=== PATIENT | male | born 2000 | race Caucasian/White ===

== ENCOUNTER 2020-11-11 00:01 | Emergency (ER) | payer MEDICAID, SELFPAY ==
[2020-11-11 00:45] VITALS: BP 144/75; PULSE 85; RESP 17; TEMP 37.2; O2SAT 97; BMI 39.6
--- NOTE | 2020-11-11 01:01 | ED.ABDPAIN ---
HPI - Abdominal Pain General Chief Complaint: Abdominal Pain Stated Complaint: ABD PAIN RIGHT SIDED Time Seen by Provider: 11/11/20 00:30 Source: patient Mode of arrival: ambulatory Limitations: no limitations History of Present Illness HPI narrative: This is a 19-year-old male who states he has had some right lower quadrant pain that radiates into his back for 2 days and he describes as sharp and constant without associated fevers, chills, nausea, vomiting, urinary pain/burning/frequency, or diarrhea. In addition, patient states he has also had a sore throat with headache without ear pain, cough, shortness of breath, or chest pain/palpitations. Patient states his last bowel movement was today. Related Data Allergies Allergy/AdvReac Type Severity Reaction Status Date / Time haloperidol [From HALDOL] Allergy Unknown UNKNOWN Unverified 08/14/20 19:35 methylphenidate Allergy Unknown UNKNOWN Unverified 08/14/20 19:35 [From RITALIN] shrimp [SHRIMP] Allergy Unknown HIVES Unverified 08/14/20 19:35 Review of Systems Review of Systems Pertinent positives and negatives as stated in HPI and 10 point review systems is otherwise negative. Physical Exam Vital Signs: Vital Signs: Last Vital Signs Temp 98.9 F 11/11/20 00:45 Pulse 85 11/11/20 00:45 Resp 17 11/11/20 00:45 BP 144/75 H 11/11/20 00:45 Pulse Ox 97 11/11/20 00:45 Body Mass Index 39.6 VITAL SIGNS: Reviewed. GENERAL: Well developed, well nourished, in no acute distress. HEAD: Normocephalic/atraumatic, EYES: PERRLA, EOMI intact without pain, no nystagmus/pallor/icterus noted EARS: Ext canals without abnormality, TMs non-bulging and non-erythematous NOSE: Nares patent bilateral OROPHARYNX: no oral lesions noted, posterior pharynx erythematous with noted tonsillar enlargement but no exudates appreciated NECK: Supple, no adenopathy LUNGS: Normal breath sounds. No adventitious sounds or accessory muscle use. SpO2<97> CARDIOVASCULAR: Regular rate and rhythm without noted murmurs, no JVD or lower extremity edema. ABDOMEN: Soft, right lower quadrant pain without rebound, non-distended with bowel sounds. No rigidity. No guarding. No palpable masses or hernias noted MUSCULOSKELETAL: No tenderness, deformities, or effusions noted on gross inspection. EXTREMITIES: No cyanosis, clubbing or edema. SKIN: Inspection of the skin reveals no rashes, ulcerations, jaundice, pallor, or petechiae. NEUROLOGIC: Alert and oriented x 4. Strength and sensation to light touch were grossly intact x 4. Course Course Course Narrative: This is a 19-year-old male with history and clinical presentation consistent with possible strep versus mono, doubt appendicitis or colitis. On review of all investigations there are no findings to explain patient's pain and CT scan is negative for intra-abdominal findings other than trace free fluid of unclear etiology. All results and findings were discussed with the patient at bedside and recommendations were for follow-up outpatient with General surgery. MDM - Abdominal Pain Lab Data Result diagrams: 11/11/20 01:26 11/11/20 01: Labs: Lab Results 11/11/20 11/11/20 11/11/20 Range/Units 01:26 01:26 01:26 WBC 8.3 (4.8-10.8) X10*3/uL RBC 4.58 L (4.60-5.80) X10*6/uL Hgb 13.2 L (14.0-18.0) g/dl Hct 40.7 L (42-52) % MCV 88.9 (80-98) fL MCH 28.8 (27.0-33.0) pg MCHC 32.4 (31.0-36.0) g/dl RDW 14.5 (11.0-16.0) % Plt Count 203 (160-400) X10*3/uL MPV 10.4 (9.4-12.4) fL Immature Gran % (Auto) 0.2 (0.0-0.4) % Neut % (Auto) 45.0 (45-73) % Lymph % (Auto) 39.2 (20-40) % Hooker % (Auto) 9.6 (2-11) % Eos % (Auto) 5.6 H (0-4) % Baso % (Auto) 0.4 (0-2) % Lymph # (Auto) 3.2 (1.2-4.9) X10*3/uL Hooker # (Auto) 0.8 (0.1-1.2) X10*3/uL Eos # (Auto) 0.5 H (0.0-0.4) X10*3/uL Baso # (Auto) 0.0 (0.0-0.2) X10*3/uL Abs Immat Gran (auto) 0.02 (0.00-0.03) X10*3/uL Absolute Neuts (auto) 3.7 (2.0-8.3) X10*3/uL Absolute Nucleated RBC 0.000 (0.0-0.012) X10*3/uL Nucleated RBC % (auto) 0.0 (0.0-0.2) /100WBC Sodium 143 (135-145) mmol/L Potassium 4.2 (3.3-5.1) mmol/l Chloride 107 (96-108) mmol/L Carbon Dioxide 27 (22-29) mmol/L Anion Gap 13 (12-20) BUN 20 H (9-16) mg/dL Creatinine 1.03 (0.5-1.4) mg/dL Estim Creat Clear Calc 183.0 Estimated GFR > 60 Random Glucose 95 (60-115) mg/dL Calcium 8.7 (8.4-10.2) mg/dL Total Bilirubin 0.2 (0.0-1.0) mg/dL AST 26 (5-37) U/L ALT 32 (0-40) U/L Alkaline Phosphatase 94 (39-117) U/L Total Protein 7.0 (6.5-8.0) g/dL Albumin 3.7 (3.5-5.0) g/dL Urine Color Urine Appearance Urine pH (5.0-8.0) Ur Specific Latham (1.005-1.025) Urine Protein (NEG-TRACE) MG/DL Urine Glucose (UA) (NEG) MG/DL Urine Ketones (NEG) MG/DL Urine Blood (NEG) Urine Nitrite (NEG) Ur Leukocyte Esterase (NEG) Monoscreen Negative (Negative) 11/11/20 Range/Units 01:26 WBC (4.8-10.8) X10*3/uL RBC (4.60-5.80) X10*6/uL Hgb (14.0-18.0) g/dl Hct (42-52) % MCV (80-98) fL MCH (27.0-33.0) pg MCHC (31.0-36.0) g/dl RDW (11.0-16.0) % Plt Count (160-400) X10*3/uL MPV (9.4-12.4) fL Immature Gran % (Auto) (0.0-0.4) % Neut % (Auto) (45-73) % Lymph % (Auto) (20-40) % Hooker % (Auto) (2-11) % Eos % (Auto) (0-4) % Baso % (Auto) (0-2) % Lymph # (Auto) (1.2-4.9) X10*3/uL Hooker # (Auto) (0.1-1.2) X10*3/uL Eos # (Auto) (0.0-0.4) X10*3/uL Baso # (Auto) (0.0-0.2) X10*3/uL Abs Immat Gran (auto) (0.00-0.03) X10*3/uL Absolute Neuts (auto) (2.0-8.3) X10*3/uL Absolute Nucleated RBC (0.0-0.012) X10*3/uL Nucleated RBC % (auto) (0.0-0.2) /100WBC Sodium (135-145) mmol/L Potassium (3.3-5.1) mmol/l Chloride (96-108) mmol/L Carbon Dioxide (22-29) mmol/L Anion Gap (12-20) BUN (9-16) mg/dL Creatinine (0.5-1.4) mg/dL Estim Creat Clear Calc Estimated GFR Random Glucose (60-115) mg/dL Calcium (8.4-10.2) mg/dL Total Bilirubin (0.0-1.0) mg/dL AST (5-37) U/L ALT (0-40) U/L Alkaline Phosphatase (39-117) U/L Total Protein (6.5-8.0) g/dL Albumin (3.5-5.0) g/dL Urine Color YELLOW Urine Appearance CLEAR Urine pH 7.5 (5.0-8.0) Ur Specific Latham 1.020 (1.005-1.025) Urine Protein NEG (NEG-TRACE) MG/DL Urine Glucose (UA) NEG (NEG) MG/DL Urine Ketones NEG (NEG) MG/DL Urine Blood NEG (NEG) Urine Nitrite NEG (NEG) Ur Leukocyte Esterase NEG (NEG) Monoscreen (Negative) Discharge Plan Discharge Clinical Impression: Abdominal pain in male, Free fluid in pelvis Patient Disposition: Home, Self-Care Instructions: Abdominal Pain (ED) Additional Instructions: - Tylenol 1000 mg, orally, every 6 hours as needed for pain control. - Ibuprofen 400 mg, orally with milk or food, every 6 hours as needed for pain control. - Please follow-up with General surgery for further evaluation regarding CT findings a small amount of fluid in your abdomen of unclear origin, but appendix/gallbladder/kidneys are otherwise within normal limits. The patient and/or family acknowledge understanding of results (as applicable), diagnosis, treatment plan, need for follow up, and symptoms that should prompt a return to the emergency room. Referrals: Young Argueta MD [Physician] - 2 days (Please evaluate this 19-year-old male who presents with right lower quadrant discomfort, normal labs, CT shows trace free fluid of unclear etiology.) FORMERLY [facility], [facility] Past Medical History Source: nursing notes reviewed Medical History No known health problems Surgical History History of testicular surgery Social History Social History Smoking Status: Never smoker Use of substances other than those prescribed or required for medical reasons: No Advance Directives: No Advance Directives Information Provided: No
[2020-11-11 01:31] LABS: MANUAL DIFF FLAG NO
[2020-11-11 01:33] LABS: Basophils Percent Auto 0.4 % (0-2); Eosinophils Absolute Auto 0.5 X10*3/uL (0.0-0.4); Eosinophils Percent Auto 5.6 % (0-4); Hematocrit 40.7 % (42-52); Hemoglobin 13.2 g/dl (14.0-18.0); Imm Gran Abs Auto 0.02 X10*3/uL (0.00-0.03); Imm Gran Pct Auto 0.2 % (0.0-0.4); Lymphocytes Absolute Auto 3.2 X10*3/uL (1.2-4.9); Lymphocytes Percent Auto 39.2 % (20-40); Mean Corpuscular HGB Conc 32.4 g/dl (31.0-36.0); Mean Corpuscular Hemoglobin 28.8 pg (27.0-33.0); Mean Corpuscular Volume 88.9 fL (80-98); Mean Platelet Volume 10.4 fL (9.4-12.4); Monocytes Absolute Auto 0.8 X10*3/uL (0.1-1.2); Monocytes Percent Auto 9.6 % (2-11); Neutrophils Absolute Auto 3.7 X10*3/uL (2.0-8.3); Platelet Count 203 X10*3/uL (160-400); Red Blood Count 4.58 X10*6/uL (4.60-5.80); Red Cell Distribution Width 14.5 % (11.0-16.0); White Blood Count 8.3 X10*3/uL (4.8-10.8)
[2020-11-11 01:34] LABS: Glucose Urine UA NEG (NEG); Leukocyte Esterase Urine NEG (NEG); Nitrite Urine NEG (NEG); PH 7.5 (5.0-8.0); Urine Blood NEG (NEG); Urine Ketones NEG (NEG); Urine Protein NEG (NEG-TRACE)
--- NOTE | 2020-11-11 01:34 | PC.NURSE ---
LABS DRAWN AND SENT FOR ANALYSIS. AWAITING RESULTS.
[2020-11-11 01:36] LABS: Appearance Urine CLEAR; Color Urine YELLOW
[2020-11-11 01:58] LABS: Monotest Negative (Negative)
[2020-11-11 02:05] LABS: Alanine Aminotransferase 32 U/L (0-40); Albumin Level 3.7 g/dL (3.5-5.0); Alkaline Phosphatase 94 U/L (39-117); Anion Gap 13 (12-20); Aspartate Amino Transferase 26 U/L (5-37); Bilirubin Total 0.2 mg/dL (0.0-1.0); Blood Urea Nitrogen 20 mg/dL (9-16); Calcium 8.7 mg/dL (8.4-10.2); Carbon Dioxide 27 mmol/L (22-29); Chloride 107 mmol/L (96-108); Estimated Glomerular Filt Rate > 60; Glucose Random 95 mg/dL (60-115); Potassium 4.2 mmol/l (3.3-5.1); Sodium 143 mmol/L (135-145)
--- NOTE | 2020-11-11 02:26 | PC.NURSE ---
[id number] SENIOR CARE ASK FOR JOAQUIN OR DARIN
--- NOTE | 2020-11-11 02:56 | CT_ITS ---
EXAMINATION: CT ABDOMEN AND PELVIS WITH CONTRAST CLINICAL INFORMATION: Right lower quadrant pain. COMPARISON: None. TECHNIQUE: Contiguous axial thin section helical images of the abdomen and pelvis were performed following the administration of 85 mL of intravenous Omnipaque 350. The data set was reformatted in the coronal and sagittal planes and reviewed on an independent workstation. DLP: 1155 mGy-cm. FINDINGS: The visualized lung bases are clear. The visualized portions of the heart are unremarkable. The liver is of normal size and attenuation without focal lesions nor intrahepatic biliary ductal dilation. A normal gallbladder is identified. There is no wall thickening or discernible pericholecystic fluid. The spleen, pancreas, adrenal glands are unremarkable. Both kidneys are of normal size and attenuation without hydronephrosis or nephrolithiasis. Following the administration of IV contrast, prompt symmetric nephrograms are displayed. There is no abdominal free fluid. There is neither mesenteric nor retroperitoneal lymphadenopathy. Normal unopacified loops of small and large bowel are identified. A normal appendix is identified. There is a small amount of pelvic free fluid. The urinary bladder is unremarkable. There is neither pelvic nor inguinal lymphadenopathy. Bone windows: Neither sclerotic nor lytic bone lesions are identified. CT/CT abdomen pelvis w con IMPRESSION: Small amount of pelvic free fluid of uncertain etiology. Normal appendix. Automated exposure control (Care Dose) Adjustment of the mA and/or kv according to patient size (this includes techniques or standardized protocols for targeted exams where dose is matched to indication / reason for exam; i.e. extremities or head).
[2020-11-11] MEDS: iohexoL 350 MG/ML 100 ML INFUS..BTL 85 ML IV (03:44)
[2020-11-11] MEDS: Acetaminophen 325 MG TABLET 975 MG PO (04:49)
[2020-11-11] MEDS: Ketorolac Tromethamine 15 MG/ML VIAL IVPUSH (04:49)
== END 2020-11-11 05:01 | disposition home or self-care (01) ==
PROVIDERS: Emergency Provider Student in an Organized Health Care Education/Training Program
DX: R10.31 Right lower quadrant pain (principal); M54.5 Low back pain; Z20.828 Contact with and (suspected) exposure to other viral communicable diseases
CPT/HCPCS: 36415; 74177; 80053; 81003; 85025; 86308; 87071; 87880; 96374; 99284; J1885; Q9967

== ENCOUNTER 2020-11-11 21:29 | Emergency (ER) | payer MEDICAID, SELFPAY ==
[2020-11-11 21:37] VITALS: BP 121/68; BP 160/90; PULSE 82; PULSE 83; RESP 18; TEMP 37.1; O2SAT 95; O2SAT 97; BMI 41.5
--- NOTE | 2020-11-11 21:49 | XR_ITS ---
EXAMINATION: XR CHEST CLINICAL INFORMATION: Cough COMPARISON: 07/02/2020 TECHNIQUE: Frontal view of the chest was obtained. FINDINGS: Subtle coarse interstitial opacity. No dense focal consolidation. No pleural effusion or pneumothorax. Normal heart size. Regional skeleton intact. XR/XR chest 1V IMPRESSION: There is subtle coarse interstitial opacity compared to the prior study 07/02/2020. Subtle pneumonitis is possible.
--- NOTE | 2020-11-11 21:58 | ED_ITS ---
HPI - General Adult General Chief complaint: General Medical Stated complaint: BODY ACHES,ABD PAIN,LOSS OF TASTE Time Seen by Provider: 11/11/20 21:42 Source: patient Mode of arrival: ambulatory Limitations: no limitations History of Present Illness HPI narrative: This is a 19-year-old male who re-presented after being evaluated earlier this morning at approximately 1:00 a.m.. He has had no change in his symptoms but now reports that he has had loss of taste, and is experiencing body aches but does state that he has a follow-up appointment as instructed the time of discharge earlier today. He states he has been able to eat and drink and his had a bowel movement today. Related Data Allergies Allergy/AdvReac Type Severity Reaction Status Date / Time haloperidol [From HALDOL] Allergy Unknown UNKNOWN Verified 11/11/20 04:48 methylphenidate Allergy Unknown UNKNOWN Verified 11/11/20 04:48 [From RITALIN] shrimp [SHRIMP] Allergy Unknown HIVES Verified 11/11/20 04:48 Review of Systems Review of Systems: Pertinent positives and negatives as stated in HPI 10 point review of systems is otherwise negative. PMFSH Past Medical History Source: nursing notes reviewed Medical History Developmental disability Seizures XXYY syndrome Surgical History History of testicular surgery Social History Social History Alcohol intake: never Smoking Status: Never smoker Smoked in Last 30 Days: No Use of substances other than those prescribed or required for medical reasons: No Advance Directives: No Advance Directives Information Provided: No Physical Exam Vital Signs: Vital Signs: Last Vital Signs Temp 98.7 F 11/11/20 21:37 Pulse 83 11/11/20 21:37 Resp 18 11/11/20 21:37 BP 121/68 11/11/20 21:37 Pulse Ox 95 11/11/20 21:37 Body Mass Index 41.5 VITAL SIGNS: Reviewed. GENERAL: Well developed, well nourished, in no acute distress. HEAD: Normocephalic/atraumatic, EYES: PERRLA, EOMI intact without pain, no nystagmus/pallor/icterus noted EARS: Ext canals without abnormality, TMs non-bulging and non-erythematous NOSE: Nares patent bilateral OROPHARYNX: no oral lesions noted, posterior pharynx erythematous without noted tonsillar enlargement/erythema/exudates NECK: Supple, no adenopathy LUNGS: Normal breath sounds. No adventitious sounds or accessory muscle use. SpO2<95> CARDIOVASCULAR: Regular rate and rhythm without noted murmurs, no JVD or lower extremity edema. ABDOMEN: Soft, non-tender, non-distended with bowel sounds. No rigidity. No guarding. No palpable masses or hernias noted MUSCULOSKELETAL: No tenderness, deformities, or effusions noted on gross inspection. EXTREMITIES: No cyanosis, clubbing or edema. SKIN: Inspection of the skin reveals no rashes, ulcerations, jaundice, pallor, or petechiae. NEUROLOGIC: Alert and oriented x 4. Strength and sensation to light touch were grossly intact x 4. Course Course Course Narrative: This is a 19-year-old male with history and clinical presentation consistent with viral symptoms and no change in the character of his right lower quadrant discomfort that has not affected his appetite nor is he having fever or chills. Chest x-ray shows ?coarse interstitial opacity...... Compared to the prior study on 07/02/2020, subtle pneumonitis is possible?. COVID 19 testing here in the emergency department this evening is negative. All results and findings were discussed with the patient he will be discharged back to his alf to continue follow-up this next for his abdominal pain and CT findings. Medical Decision Making Lab Data Labs: Lab Results 11/11/20 Range/Units 22:10 COVID-19 (JULISSA) Negative (Negative) COVID-19 Clin Com See Note Discharge Plan Discharge Clinical Impression: Viral syndrome, Lab test negative for COVID-19 virus Patient Disposition: Home, Self-Care Instructions: Viral Syndrome (ED) Additional Instructions: 1. Tylenol 1000 mg, orally, every 6 hours as needed for abdominal pain, temperature greater than 100.4, body aches. Do not exceed 4000 mg within 24 hours. 2. Ibuprofen 400 mg, orally with milk or food, every 6 hours as needed for ab dominal pain, temperature greater than 100.4, body aches. 3. Continue to increase fluid hydration especially with water. 4. Resume all home medications as prescribed. 5. Follow-up as scheduled this coming and do not hesitate to return to the emergency department should you experience any worsening or new symptoms. The patient and/or family acknowledge understanding of results (as applicable), diagnosis, treatment plan, need for follow up, and symptoms that should prompt a return to the emergency room. Referrals: Physician,Unknown [Primary Care Provider] - 2 days (Re-evaluation)
--- NOTE | 2020-11-11 22:10 | PC.NURSE ---
contact: assistant sales director of the care home is daniel quintana [phone]- she would like to be notified if the patient is positive for covid so that she can make appropriate arrangements for him as well as others at the care home he lives in. when the patient is ready to discharge the care home number is [phone], daniel stated that if that number is not answered that it is ok for us to call her number so she can make arrangements to get him picked up.
--- NOTE | 2020-11-11 22:14 | PC.NURSE ---
COVID SWAB PERFORMED
[2020-11-11 22:34] LABS: COVID-19 Test Negative (Negative); IDNOW Serial# 9DD0AD1C
== END 2020-11-11 23:33 | disposition home or self-care (01) ==
PROVIDERS: Emergency Provider Student in an Organized Health Care Education/Training Program
DX: M79.10 Myalgia, unspecified site (principal); R79.89 Other specified abnormal findings of blood chemistry; Z20.828 Contact with and (suspected) exposure to other viral communicable diseases
CPT/HCPCS: 71045; 87635; 99283

== ENCOUNTER → 2020-11-13 14:24 | Outpatient (BNVA) | payer MEDICAID, SELFPAY | PROVIDERS: Visit Provider Surgery | DX: R10.9 Unspecified abdominal pain (principal); G89.29 Other chronic pain | CPT/HCPCS: 99202 ==

== ENCOUNTER 2020-11-14 21:08 | Emergency (ER) | payer MEDICAID, SELFPAY ==
[2020-11-14 21:18] VITALS: BP 126/92; PULSE 108; RESP 17; TEMP 36.7; O2SAT 97; BMI 39.6
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
[2020-11-14 21:43] VITALS: BP 126/92; PULSE 108; RESP 17; TEMP 36.7; O2SAT 97
== END 2020-11-14 22:51 | disposition home or self-care (01) ==
PROVIDERS: Emergency Provider Emergency Medicine
DX: F89 Unspecified disorder of psychological development (principal); Q98.0 Klinefelter syndrome karyotype 47, XXY; Z79.899 Other long term (current) drug therapy
CPT/HCPCS: 99283

== ENCOUNTER 2020-12-24 10:46 | Outpatient (REF) | payer MEDICAID, SELFPAY ==
--- NOTE | 2020-12-24 10:59 | US_ITS ---
EXAMINATION: US ABDOMEN COMPLETE CLINICAL INFORMATION: Abdominal pain. COMPARISON: CT abdomen 11/11/2020. XR KUB 07/25/2020 06/18/2020. TECHNIQUE: Real-time imaging of the abdominal viscera. FINDINGS: PANCREAS: Normal. ABDOMINAL AORTA: The proximal, mid, and distal segments are normal in caliber. INFERIOR VENA CAVA: Visualized portions are normal. LIVER: Liver echotexture is increased probably representing fatty infiltration. There is a hypoechoic area adjacent to the gallbladder probably presenting focal fatty sparing.. The liver is normal in size. The liver contour is normal. No focal hepatic lesion. There is no intrahepatic biliary duct dilatation seen. GALLBLADDER: Normal. The gallbladder is physiologically distended without evidence of stones, sludge, polyps, wall thickening or pericholecystic fluid. COMMON BILE DUCT: Normal in caliber measuring 0.4 cm in diameter. RIGHT KIDNEY: Normal. No hydronephrosis. No renal calculi or focal parenchymal lesions. The kidney measures 11.8 cm in maximum dimension. LEFT KIDNEY: Normal. No hydronephrosis. No renal calculi or focal parenchymal lesions. The kidney measures 13.0 cm in maximum dimension. SPLEEN: Normal. The spleen measures 11.8 cm in maximum dimension. FREE FLUID: None. US/US abdomen complete IMPRESSION: Echogenic liver probably representing fatty infiltration. Otherwise unremarkable exam.
== END 2020-12-24 10:47 | disposition home or self-care (01) ==
LOC: HO.HMGCX 10:46
PROVIDERS: Visit Provider Surgery
DX: G89.29 Other chronic pain (principal); R10.9 Unspecified abdominal pain
CPT/HCPCS: 76700

== ENCOUNTER 2020-12-29 13:20 | Emergency (ER) | payer MEDICAID, SELFPAY ==
--- NOTE | 2020-12-29 13:31 | XR_ITS ---
EXAMINATION: CR CHEST CLINICAL INFORMATION: Left-sided chest pain. COMPARISON: Chest x-ray dated 11/11/2020 and 07/02/2020. TECHNIQUE: AP upright portable view of the chest was obtained. FINDINGS: EKG leads overlie the chest. The cardiomediastinal silhouette is within normal limits in size. Lungs bilaterally are symmetrically hypoexpanded with mild bibasilar linear opacities, likely representing atelectasis. No focal dense consolidation, effusion or pneumothorax is seen. Bony structures are unremarkable. XR/XR chest 1V IMPRESSION: Low lung volumes with bibasilar subsegmental atelectasis.
[2020-12-29 13:33] VITALS: BP 140/100; BP 149/81; PULSE 92; PULSE 98; RESP 18; TEMP 36.7; O2SAT 95; O2SAT 98; BMI 41.5
--- NOTE | 2020-12-29 13:33 | ECG_ITS ---
Test Reason : SEIZURE Blood Pressure : / mmHG Vent. Rate : 089 BPM Atrial Rate : 089 BPM P-R Int : 148 ms QRS Dur : 080 ms QT Int : 352 ms P-R-T Axes : 030 002 014 degrees QTc Int : 428 ms Normal sinus rhythm Normal ECG When compared with ECG of 02-JUL-2020 17:42, No significant change was found Referred By: Buzz Escamilla Electronically Signed By:LUIS SORTO MD
[2020-12-29] MEDS: LORazepam 2 MG/ML VIAL IM (13:48)
--- NOTE | 2020-12-29 13:49 | PC.NURSE ---
Pt had seizure lasting approx 1.5-2 min, absent, nadeem PA at bedside for v/o of Ativan IM. Placed on 2L nasal cannula. Pt now slightly postictal but able to follow simple commands. Iv being established by second RN
[2020-12-29 13:57] LABS: MANUAL DIFF FLAG NO
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
[2020-12-29 14:02] LABS: Basophils Percent Auto 0.4 % (0-2); Eosinophils Absolute Auto 0.4 X10*3/uL (0.0-0.4); Eosinophils Percent Auto 5.4 % (0-4); Hematocrit 44.5 % (42-52); Hemoglobin 14.4 g/dl (14.0-18.0); Imm Gran Abs Auto 0.01 X10*3/uL (0.00-0.03); Imm Gran Pct Auto 0.1 % (0.0-0.4); Lymphocytes Absolute Auto 2.8 X10*3/uL (1.2-4.9); Mean Corpuscular HGB Conc 32.4 g/dl (31.0-36.0); Mean Corpuscular Hemoglobin 29.1 pg (27.0-33.0); Mean Corpuscular Volume 90.1 fL (80-98); Mean Platelet Volume 10.3 fL (9.4-12.4); Monocytes Absolute Auto 0.8 X10*3/uL (0.1-1.2); Monocytes Percent Auto 9.8 % (2-11); Neutrophils Absolute Auto 3.8 X10*3/uL (2.0-8.3); Neutrophils Percent Auto 48.3 % (45-73); Platelet Count 185 X10*3/uL (160-400); Red Blood Count 4.94 X10*6/uL (4.60-5.80); Red Cell Distribution Width 13.2 % (11.0-16.0); White Blood Count 7.8 X10*3/uL (4.8-10.8)
[2020-12-29 14:08] LABS: Prothrombin Time 12.2 SEC (10.8-13.0)
--- NOTE | 2020-12-29 14:10 | CT_ITS ---
EXAMINATION: CT HEAD WITHOUT CONTRAST CLINICAL INFORMATION: Seizure. COMPARISON: CT brain 06/19/2020 TECHNIQUE: Contiguous axial imaging was performed from the skull base to vertex without intravenous administration of contrast. This CT examination was performed using dose optimization techniques as appropriate, variously including the following: *Automated exposure control *Adjustment of mA and/or kV according to patient size (this includes techniques or standardized protocols for targeted exams where dose is matched to indication/reason for exam; i.e. extremities or head) *Use of iterative reconstruction technique DLP: 911 mGy-cm FINDINGS: There is no evidence of acute intracranial hemorrhage or territorial infarction. No abnormal mass effect or midline shift is seen. Katz to white matter differentiation is well preserved. No extra-axial fluid collections are identified. There is a hypodense lesion surrounding the mid and splenium of the corpus callosum consistent with callosal lipoma. No additional lesions seen. The ventricles are normal in size. There is no abnormal attenuation within the brain parenchyma. The osseous structures and soft tissues are normal. The mastoid air cells and visualized portions of the paranasal sinuses are well aerated. CT/CT head/brain wo con IMPRESSION: No acute intracranial process seen. 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 It is unchanged to previous study 06/19/2020.
[2020-12-29 14:11] LABS: D Dimer < 200 NG/ML; Partial Thromboplastin Time 34.4 SEC (24.1-38.0)
[2020-12-29] MEDS: 0.9 % Sodium Chloride 1,000 ML 999 ML IV (14:18)
[2020-12-29] MEDS: Acetaminophen 325 MG TABLET 650 MG PO (14:19)
[2020-12-29 14:24] LABS: Ethanol < 10 mg/dL
[2020-12-29 14:27] LABS: Alanine Aminotransferase 34 U/L (0-40); Albumin Level 4.1 g/dL (3.5-5.0); Alkaline Phosphatase 100 U/L (39-117); Anion Gap 13 (12-20); Aspartate Amino Transferase 21 U/L (5-37); Bilirubin Total 0.6 mg/dL (0.0-1.0); Blood Urea Nitrogen 14 mg/dL (9-16); Calcium 9.3 mg/dL (8.4-10.2); Carbon Dioxide 29 mmol/L (22-29); Chloride 105 mmol/L (96-108); Creatinine Clr Calc Pharmacy 208.3; Estimated Glomerular Filt Rate > 60; Glucose Random 86 mg/dL (60-115); Sodium 143 mmol/L (135-145); Total Protein 7.5 g/dL (6.5-8.0)
[2020-12-29 14:33] LABS: Troponin-I High Sensitivity < 3.5 ng/L (<3.5-35.0)
[2020-12-29 14:36] LABS: Valproate 49.2 mcg/mL (50.0-100.0)
--- NOTE | 2020-12-29 15:31 | PC.NURSE ---
pt to bathroom at this time. ambulatory independently
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
[2020-12-29 17:08] LABS: Appearance Urine CLEAR; Color Urine YELLOW; Glucose Urine UA NEG (NEG); Leukocyte Esterase Urine NEG (NEG); Nitrite Urine NEG (NEG); Specific Gravity - Urine >= 1.030 (1.005-1.025); Urine Blood NEG (NEG); Urine Ketones NEG (NEG); Urine Protein NEG (NEG-TRACE)
[2020-12-29 17:33] LABS: Amphetamine Screen Urine Not Detected (Not Detect); Barbiturates, Urine Not Detected (Not Detect); Benzodiazepines Screen Urine Not Detected (Not Detect); Cannabinoid Screen Urine Not Detected (Not Detect); Cocaine Screen Urine Not Detected (Not Detect); Opiate Screen Urine Not Detected (Not Detect); Phencyclidine Screen Urine Not Detected (Not Detect)
--- NOTE | 2020-12-29 18:08 | PC.NURSE ---
[facility] reports that they cannot see pt until the am care team made aware
[2020-12-29] MEDS: Divalproex Sodium 500 MG TABLET.DR 1000 MG PO (18:16)
--- NOTE | 2020-12-29 18:34 | PC.NURSE ---
care team speaking with correction
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
--- NOTE | 2020-12-29 20:12 | PC.NURSE ---
pt was told he was going to the pod and needed to changeover operator into [facility] scrubs. pt then with assist ambulated to the bathroom and started to had a seizure. pt placed in wheel chair, brought back to a stretcher and treated with ativan. side rales padded hob elevated. bathblanked placed over pt eyes while cleaning machine in room 12 is completed. pt is arrousable no incont. lasted 1 min witnessed.
[2020-12-29] MEDS: LORazepam 2 MG/ML VIAL IVPUSH (20:16)
[2020-12-29 20:31] VITALS: BP 130/72; PULSE 105; RESP 16; O2SAT 97
--- NOTE | 2020-12-29 20:34 | PC.NURSE ---
pt seizure has resolved and no further seizure activty noted, vitals taken hr elevated. skin warm and dry.
--- NOTE | 2020-12-29 22:36 | PC.NURSE ---
PT RESTING COMFORTABLY, NO SEIZURE ACTIVITY.
--- NOTE | 2020-12-29 23:52 | PC.NURSE ---
geovany from [facility] called and pt is waiting to be seen. pt is awake no seizure activity.
[2020-12-30] VITALS: BP 129/66; PULSE 92; RESP 17; TEMP 37.1; O2SAT 99
[2020-12-30 02:00] VITALS: RESP 20
[2020-12-30 05:11] VITALS: BP 139/70; PULSE 77; RESP 20; TEMP 36.2; O2SAT 95
--- NOTE | 2020-12-30 07:39 | PC.NURSE ---
Per [facility] clincian, pt was seen and cleared to return to current providers.
== END 2020-12-30 08:57 | disposition home or self-care (01) ==
PROVIDERS: Physician Assistant; Emergency Provider Emergency Medicine
DX: F41.9 Anxiety disorder, unspecified (principal); R07.89 Other chest pain; F44.5 Conversion disorder with seizures or convulsions
CPT/HCPCS: 36415; 70450; 71045; 80053; 80164; 80307; 80320; 81003; 84484; 85025; 85379; 85610; 85730; 93005; 96361; 96372; 96374; 99284; J2060

== ENCOUNTER → 2021-01-07 10:26 | Outpatient (BNVA) | payer MEDICAID, SELFPAY | PROVIDERS: PCP Nurse Practitioner Family; Visit Provider Surgery | DX: R10.9 Unspecified abdominal pain (principal); G89.29 Other chronic pain | CPT/HCPCS: 99212 ==

== ENCOUNTER 2021-01-07 23:08 | Emergency (ER) | payer MEDICAID, SELFPAY ==
--- NOTE | ~2021-01-07 | XR_ITS ---
EXAMINATION: LEFT HAND 3 VIEWS CLINICAL INFORMATION: Pain following injury. COMPARISON: 08/06/2020. TECHNIQUE: PA, lateral, oblique views of the left hand were obtained. FINDINGS: There are no fractures or dislocations. There is no significant soft tissue swelling. XR/XR hand LT min 3V IMPRESSION: Unremarkable left hand radiographs.
[2021-01-07 23:14] VITALS: BP 154/86; BP 156/86; PULSE 100; RESP 15; TEMP 36.6; O2SAT 98; BMI 41.5
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
[2021-01-07] MEDS: LORazepam 1 MG TABLET 2 MG PO (23:25)
[2021-01-07 23:54] LABS: MANUAL DIFF FLAG NO
[2021-01-07 23:57] LABS: Basophils Percent Auto 0.3 % (0-2); Eosinophils Absolute Auto 0.5 X10*3/uL (0.0-0.4); Eosinophils Percent Auto 5.4 % (0-4); Hematocrit 41.6 % (42-52); Hemoglobin 13.3 g/dl (14.0-18.0); Imm Gran Abs Auto 0.02 X10*3/uL (0.00-0.03); Imm Gran Pct Auto 0.2 % (0.0-0.4); Lymphocytes Absolute Auto 3.5 X10*3/uL (1.2-4.9); Mean Corpuscular Hemoglobin 28.9 pg (27.0-33.0); Mean Corpuscular Volume 90.4 fL (80-98); Mean Platelet Volume 10.3 fL (9.4-12.4); Monocytes Absolute Auto 0.8 X10*3/uL (0.1-1.2); Monocytes Percent Auto 9.6 % (2-11); Neutrophils Absolute Auto 3.9 X10*3/uL (2.0-8.3); Neutrophils Percent Auto 44.5 % (45-73); Platelet Count 203 X10*3/uL (160-400); Red Cell Distribution Width 13.6 % (11.0-16.0); White Blood Count 8.8 X10*3/uL (4.8-10.8)
[2021-01-08] VITALS (12 sets, daily range): BP systolic 96–128; BP diastolic 50–70; PULSE 66–100; RESP 16–20; TEMP 36.4–37; O2SAT 95–99
[2021-01-08 00:21] LABS: Ethanol < 10 mg/dL
[2021-01-08 00:24] LABS: Anion Gap 13 (12-20); Blood Urea Nitrogen 17 mg/dL (9-16); Calcium 9.2 mg/dL (8.4-10.2); Carbon Dioxide 25 mmol/L (22-29); Chloride 107 mmol/L (96-108); Creatinine Clr Calc Pharmacy 180.8; Estimated Glomerular Filt Rate > 60; Glucose Random 117 mg/dL (60-115); Potassium 3.9 mmol/L (3.3-5.1); Sodium 141 mmol/L (135-145)
[2021-01-08 00:31] LABS: Valproate 57.5 mcg/mL (50.0-100.0)
[2021-01-08] MEDS: polyethylene glycoL 3350 17 GM POWD.PACK PO (09:12)
[2021-01-08] MEDS: Docusate Sodium 100 MG CAPSULE PO ×2 (09:12→21:50)
[2021-01-08] MEDS: Divalproex Sodium 500 MG TABLET.DR PO ×2 (09:12→21:51)
[2021-01-08] MEDS: QUEtiapine Fumarate 50 MG TABLET PO ×2 (09:12→17:27)
[2021-01-08] MEDS: LORazepam 2 MG/ML VIAL IVPUSH (13:19)
--- NOTE | 2021-01-08 13:20 | PC.NURSE ---
Addendum entered by Mode Kidd 01/08/21 13:26: SZ PRECAUTIONS IN PLACE PER POLICY Original Note: WHILE RESTING S/F IN BED PT NOTED TO HAVE SUDDEN ONSET POSSIBLE SEIZURE, FULL BODY TONIC/CLONIC MOVEMENTS NOTED, PROVIDER TO BEDSIDE REQUESTED ATIVAN, IV ESTABLISHED, PT MEDICATED PER EMAR. PT PLACED ON TELE MONITOR NSR, VSS. SX LASTED <1 MIN.
--- NOTE | 2021-01-08 13:32 | PC.NURSE ---
PT NOW AWAKE AND ALERT, OFFERS NO COMPLAINTS, RESPONDING APPROPRIATELY TO QUESTIONS FROM THIS RN.
[2021-01-08] MEDS: LORazepam 1 MG TABLET 2 MG PO (18:01)
[2021-01-08 18:07] LABS: Amphetamine Screen Urine Not Detected (Not Detect); Barbiturates, Urine Not Detected (Not Detect); Benzodiazepines Screen Urine Not Detected (Not Detect); Cannabinoid Screen Urine Not Detected (Not Detect); Cocaine Screen Urine Not Detected (Not Detect); Opiate Screen Urine Not Detected (Not Detect); Phencyclidine Screen Urine Not Detected (Not Detect)
--- NOTE | 2021-01-08 18:27 | PC.NURSE ---
CALLED N TO SEE WHY THEY HAVE NOT COME TO SEE PATIENT YET. STATED THEY WILL NOT BE ABLE TO SEE PATIENT UNTIL AT LEAST 2200.
--- NOTE | 2021-01-08 19:45 | PC.NURSE ---
PT HAS HAD 1 EPISODE OF PSEUDO SEIZING FOR UNDER 1 MINUTE. PT MAINTAIN AIRWAY, NEEDING NO SUPPORTIVE CARE. PT NOW STATES I NEED SOMETHING STRONG OR I DONT KNOW WHAT IM GOING TO DO SPOKE W/PA WILL GIVE PO ATARAX
[2021-01-08] MEDS: hydrOXYzine HCL 25 MG TABLET PO (19:58)
--- NOTE | 2021-01-08 21:30 | PC.NURSE ---
PER CARE TEAM PT CLR FOR D/C TO SNF- WILL MEDICATE W/NOC MEDS PRIOR TO D/C
[2021-01-08] MEDS: QUEtiapine Fumarate 200 MG TABLET PO (21:50)
[2021-01-08] MEDS: QUEtiapine Fumarate 300 MG TABLET PO (21:51)
[2021-01-08] MEDS: Melatonin 3 MG TABLET PO (21:51)
[2021-01-08] MEDS: Divalproex Sodium 250 MG TABLET.DR PO (21:51)
== END 2021-01-08 22:00 | disposition home or self-care (01) ==
PROVIDERS: Emergency Provider Emergency Medicine
DX: F41.1 Generalized anxiety disorder (principal); F43.0 Acute stress reaction; M79.642 Pain in left hand; Z63.79 Other stressful life events affecting family and household; Z79.899 Other long term (current) drug therapy
CPT/HCPCS: 36415; 73130; 80048; 80164; 80307; 80320; 85025; 96372; 96374; 99285; J2060

== ENCOUNTER 2021-01-28 13:43 | Emergency (ER) | payer MEDICAID, SELFPAY ==
[2021-01-28 13:49] VITALS: BP 119/62; BP 124/86; PULSE 91; PULSE 94; TEMP 36.9; O2SAT 100; O2SAT 96; BMI 42.0
--- NOTE | 2021-01-28 13:52 | ED.PSYCH ---
HPI - Psych General Chief Complaint: Seizure Stated Complaint: seizures Time Seen by Provider: 01/28/21 13:51 Source: patient and EMS Mode of arrival: EMS Limitations: physical limitation (post versed) History of Present Illness HPI Narrative: 20 yo male with hx of developmental delay, seizures and nonepileptic seizures comes in with [facility] seizures [facility], EMS gave 5mg IV versed patient asleep on arrival MD complaint: other (anxiety, ) Onset (ago): day(s) (today ) Duration: constant History of same: Yes Relieving factors: none Exacerbating factors: none Context: other (hx of same in past) Associated psychiatric symptoms: none Associated symptoms: denies other symptoms Treatments prior to arrival: other (IV versed 5mg) Related Data Home Medications Medication Instructions Recorded Confirmed blood pressure monitor #1 ea 11/13/20 01/08/21 clindamycin phosphate 1 % topical 1 appl TOPICAL BID 11/13/20 01/08/21 gel divalproex 500 mg tablet,delayed 500 mg PO BID 11/13/20 01/08/21 release melatonin 3 mg capsule 3 mg PO BEDTIME 11/13/20 01/08/21 omega-3 fatty acids-fish oil 360 1 cap PO BID 11/13/20 01/08/21 mg-1,200 mg capsule divalproex 250 mg PO BEDTIME 01/08/21 01/08/21 guanfacine [Intuniv ER] 2 mg PO QPM 01/08/21 01/08/21 polyethylene glycol 3350 [Miralax] 17 g PO BID 01/08/21 01/08/21 quetiapine 200 mg PO BEDTIME 01/08/21 01/08/21 quetiapine 300 mg PO BEDTIME 01/08/21 01/08/21 quetiapine [Seroquel] 50 mg PO DAILY 01/08/21 01/08/21 quetiapine [Seroquel] 50 mg PO DAILY PRN 01/08/21 01/08/21 Previous Rx's Medication Instructions Recorded docusate sodium 100 mg capsule 100 mg PO BID #60 cap 11/13/20 Allergies Allergy/AdvReac Type Severity Reaction Status Date / Time haloperidol [From HALDOL] Allergy Unknown UNKNOWN Verified 01/07/21 10:38 methylphenidate Allergy Unknown UNKNOWN Verified 01/07/21 10:38 [From RITALIN] shrimp [SHRIMP] Allergy Unknown HIVES Verified 01/07/21 10:38 Review of Systems Review of Systems: ROS unable to be obtained due to altered mental status PMFSH Past Medical History Medical History Chronic abdominal pain Developmental disability Seizures XXYY syndrome Surgical History History of testicular surgery Family History Family History Other History of brain cancer Social History Social History Alcohol intake: unknown Smoking Status: Unknown if ever smoked Use of substances other than those prescribed or required for medical reasons: Unknown Advance Directives: No Advance Directives Information Provided: No Physical Exam Vital Signs: Vital Signs: Last Vital Signs Temp 98.2 F 01/28/21 15:46 Pulse 79 01/28/21 15:46 Resp 17 01/28/21 15:46 BP 108/67 01/28/21 15:46 Pulse Ox 99 01/28/21 15:46 Body Mass Index 42.0 Appearance: somnolent, no acute distress, opens eyes to his voice, follows commands. Eyes: Pupils equal, round and reactive to light. ENT: Pharynx normal. Neck: Normal inspection. Neck supple. CVS: Normal heart rate and rhythm. Pulses normal. Respiratory: No respiratory distress. Breath sounds normal. Abdomen: Soft and nontender. Skin: Skin warm and dry. Normal skin color. Normal skin turgor. Extremities: No lower extremity edema. No calf ttp Neuro: unable to participate, does move all extremeties when asked Course Course Course Narrative: awake alert oriented x 3 - stable for DC states he was just agitated, attempted to have another seizure in ED I confronted him and he looked at me and I told him he was going to receive no more medications now he wants to leave wants to leave, unable to reach his mom, RN to call jail will need to sign patient out until we hear from jail MDM - Psych MDM Narrative Medical decision making narrative: 20 yo male with hx of DD, seizures, non-epileptic seizures here with c/o seizure activity, hard to assess on arrival no signs of trauma, 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 - has been seen in the ED for same in past Lab Data Result diagrams: 01/28/21 14:04 01/28/21 14:03 Labs: Lab Results 01/28/21 01/28/21 Range/Units 14:03 14:04 WBC 7.4 (4.8-10.8) X10*3/uL RBC 4.73 (4.60-5.80) X10*6/uL Hgb 13.6 L (14.0-18.0) g/dl Hct 42.8 (42-52) % MCV 90.5 (80-98) fL MCH 28.8 (27.0-33.0) pg MCHC 31.8 (31.0-36.0) g/dl RDW 13.5 (11.0-16.0) % Plt Count 200 (160-400) X10*3/uL MPV 10.4 (9.4-12.4) fL Immature Gran % (Auto) 0.3 (0.0-0.4) % Neut % (Auto) 55.0 (45-73) % Lymph % (Auto) 29.8 (20-40) % [place] % (Auto) 8.4 (2-11) % Eos % (Auto) 6.1 H (0-4) % Baso % (Auto) 0.4 (0-2) % Lymph # (Auto) 2.2 (1.2-4.9) X10*3/uL [place] # (Auto) 0.6 (0.1-1.2) X10*3/uL Eos # (Auto) 0.5 H (0.0-0.4) X10*3/uL Baso # (Auto) 0.0 (0.0-0.2) X10*3/uL Abs Immat Gran (auto) 0.02 (0.00-0.03) X10*3/uL Absolute Neuts (auto) 4.1 (2.0-8.3) X10*3/uL Absolute Nucleated RBC 0.000 (0.0-0.012) X10*3/uL Nucleated RBC % (auto) 0.0 (0.0-0.2) /100WBC Hold Blue Top SEE NOTE Discharge Plan Discharge Clinical Impression: Nonepileptic episode Patient Disposition: Home, Self-Care Instructions: Nonepileptic Seizures (ED) Additional Instructions: return to ED for any worsening symptoms or concerns was given versed with EMS no medications given in the ED Prescriptions: No Action divalproex 250 mg tablet,delayed release (DR/EC) 250 mg PO BEDTIME RF: 0 polyethylene glycol 3350 [Miralax] 17 gram/dose Powder 17 g PO BID RF: 0 quetiapine [Seroquel] 50 mg Tablet 50 mg PO DAILY PRN (Reason: Anxiety) RF: 0 quetiapine [Seroquel] 50 mg Tablet 50 mg PO DAILY RF: 0 guanfacine [Intuniv ER] 2 mg Tablet Extended Release 24 Hr 2 mg PO QPM RF: 0 quetiapine 300 mg Tablet 300 mg PO BEDTIME RF: 0 quetiapine 200 mg Tablet 200 mg PO BEDTIME RF: 0 clindamycin phosphate 1 % gel 1 appl topical BID RF: 0 melatonin 3 mg capsule 3 mg PO BEDTIME RF: 0 (DME) blood pressure monitor [Blood Pressure Kit] Kit See Rx Instructions .ROUTE .MEDSUPPLY Qty: 1 RF: 0 omega-3 fatty acids-fish oil [Fish Oil] 360-1,200 mg capsule 1 cap PO BID RF: 0 divalproex 500 mg tablet,delayed release (DR/EC) 500 mg PO BID RF: 0 docusate sodium [Colace] 100 mg capsule 100 mg PO BID Qty: 60 RF: 2 Referrals: Physician,Unknown [Primary Care Provider] - 2 days
[2021-01-28 14:08] LABS: MANUAL DIFF FLAG NO
[2021-01-28 14:17] LABS: Basophils Percent Auto 0.4 % (0-2); Eosinophils Absolute Auto 0.5 X10*3/uL (0.0-0.4); Eosinophils Percent Auto 6.1 % (0-4); Hematocrit 42.8 % (42-52); Hemoglobin 13.6 g/dl (14.0-18.0); Imm Gran Abs Auto 0.02 X10*3/uL (0.00-0.03); Imm Gran Pct Auto 0.3 % (0.0-0.4); Lymphocytes Absolute Auto 2.2 X10*3/uL (1.2-4.9); Lymphocytes Percent Auto 29.8 % (20-40); Mean Corpuscular HGB Conc 31.8 g/dl (31.0-36.0); Mean Corpuscular Hemoglobin 28.8 pg (27.0-33.0); Mean Corpuscular Volume 90.5 fL (80-98); Mean Platelet Volume 10.4 fL (9.4-12.4); Monocytes Absolute Auto 0.6 X10*3/uL (0.1-1.2); Monocytes Percent Auto 8.4 % (2-11); Neutrophils Absolute Auto 4.1 X10*3/uL (2.0-8.3); Platelet Count 200 X10*3/uL (160-400); Red Blood Count 4.73 X10*6/uL (4.60-5.80); Red Cell Distribution Width 13.5 % (11.0-16.0); White Blood Count 7.4 X10*3/uL (4.8-10.8)
[2021-01-28 15:04] VITALS: BP 121/71; PULSE 87; RESP 20; O2SAT 98
[2021-01-28 15:06] VITALS: TEMP 36.8
[2021-01-28 15:46] VITALS: BP 108/67; PULSE 79; RESP 17; TEMP 36.8; O2SAT 99
--- NOTE | 2021-01-28 16:05 | PC.NURSE ---
Pt requesting to leave I'm just anxious and want to go , pt easily redirected but refusing lab work. Called Jesse Khalil, site head, from [facility] for AMA/ discharge, deferred to Daylin, supervisor gas meter repair, unable to reach at this time. will continue to attempt
[2021-01-28] MEDS: Acetaminophen 325 MG TABLET 650 MG PO (16:14)
[2021-01-28 16:49] LABS: Alanine Aminotransferase 42 U/L (0-40); Albumin Level 3.9 g/dL (3.5-5.0); Alkaline Phosphatase 107 U/L (39-117); Anion Gap 12 (12-20); Aspartate Amino Transferase 26 U/L (5-37); Bilirubin Direct 0.2 mg/dL (0.0-0.5); Bilirubin Total 0.6 mg/dL (0.0-1.0); Blood Urea Nitrogen 13 mg/dL (9-16); Carbon Dioxide 27 mmol/L (22-29); Chloride 104 mmol/L (96-108); Creatinine Clr Calc Pharmacy 212.2; Estimated Glomerular Filt Rate > 60; Glucose Random 74 mg/dL (60-115); Sodium 139 mmol/L (135-145); Total Protein 7.1 g/dL (6.5-8.0)
[2021-01-28 16:53] LABS: Valproate 63.3 mcg/mL (50.0-100.0)
== END 2021-01-28 18:03 | disposition home or self-care (01) ==
PROVIDERS: Emergency Provider Emergency Medicine
DX: R56.9 Unspecified convulsions (principal); F89 Unspecified disorder of psychological development; Q98 Other sex chromosome abnormalities, male phenotype, not elsewhere classified; Z79.899 Other long term (current) drug therapy
CPT/HCPCS: 36415; 80048; 80076; 80164; 85025; 99283; 99284

== ENCOUNTER 2021-02-14 11:59 | Emergency (ER) | payer MEDICAID, SELFPAY ==
[2021-02-14 12:13] VITALS: BP 122/81; PULSE 94; RESP 18; TEMP 37.2; O2SAT 95; BMI 41.5
[2021-02-14 12:55] LABS: MANUAL DIFF FLAG NO
[2021-02-14 12:57] LABS: Basophils Percent Auto 0.5 % (0-2); Eosinophils Absolute Auto 0.5 X10*3/uL (0.0-0.4); Eosinophils Percent Auto 5.8 % (0-4); Hematocrit 43.8 % (42-52); Hemoglobin 13.6 g/dl (14.0-18.0); Imm Gran Abs Auto 0.02 X10*3/uL (0.00-0.03); Imm Gran Pct Auto 0.2 % (0.0-0.4); Lymphocytes Absolute Auto 2.2 X10*3/uL (1.2-4.9); Lymphocytes Percent Auto 24.9 % (20-40); Mean Corpuscular HGB Conc 31.1 g/dl (31.0-36.0); Mean Corpuscular Hemoglobin 28.8 pg (27.0-33.0); Mean Corpuscular Volume 92.6 fL (80-98); Monocytes Absolute Auto 0.9 X10*3/uL (0.1-1.2); Neutrophils Absolute Auto 5.1 X10*3/uL (2.0-8.3); Neutrophils Percent Auto 58.6 % (45-73); Platelet Count 207 X10*3/uL (160-400); Red Blood Count 4.73 X10*6/uL (4.60-5.80); Red Cell Distribution Width 13.9 % (11.0-16.0); White Blood Count 8.7 X10*3/uL (4.8-10.8)
[2021-02-14 13:07] LABS: INTERNATIONAL NORM RATIO 1.1 (0.9-1.1); Prothrombin Time 13.2 SEC (10.8-13.0)
[2021-02-14 13:27] LABS: Ethanol < 10 mg/dL
[2021-02-14 13:28] LABS: Valproate 76.3 mcg/mL (50.0-100.0)
[2021-02-14 13:30] LABS: Alanine Aminotransferase 34 U/L (0-40); Albumin Level 3.9 g/dL (3.5-5.0); Alkaline Phosphatase 97 U/L (39-117); Anion Gap 12 (12-20); Aspartate Amino Transferase 27 U/L (5-37); Bilirubin Direct 0.2 mg/dL (0.0-0.5); Bilirubin Total 0.3 mg/dL (0.0-1.0); Blood Urea Nitrogen 20 mg/dL (9-16); Calcium 9.4 mg/dL (8.4-10.2); Carbon Dioxide 30 mmol/L (22-29); Chloride 107 mmol/L (96-108); Creatinine Clr Calc Pharmacy 203.9; Estimated Glomerular Filt Rate > 60; Glucose Random 96 mg/dL (60-115); Magnesium 2.1 mg/dL (1.6-2.6); Potassium 4.6 mmol/L (3.3-5.1); Sodium 144 mmol/L (135-145); Total Protein 7.1 g/dL (6.5-8.0)
--- NOTE | 2021-02-14 13:35 | ED.SEIZURE ---
HPI - Seizure General Chief Complaint: Seizure Stated Complaint: seizures Time Seen by Provider: 02/14/21 12:25 Source: patient, EMS and other ([facility] staff member) Mode of arrival: ambulatory Limitations: no limitations History of Present Illness HPI Narrative: 20-year-old male with a past medical history of developmental delay, seizures, nonepileptic seizures and pseudoseizures currently on Depakote 500 mg daily and 250 mg at night currently taking as prescribed per patient and [facility] presenting to the ED after possible seizure witnessed by his [facility] staff member prior to arrival where he reports the patient sitting watching TV after eating breakfast and his eyes rolled back and he was not responding to the [facility] staff member. Reports shortly after he came back to baseline although [facility] staff member was concerned therefore called EMS to bring him to the emergency department for further evaluation treatment. Patient reports that he feels as he cannot concentrate otherwise denies any other symptoms which include fevers, chills, dizziness, lightheadedness, headaches, changes in vision, runny nose, nasal congestion, ear pain, sore throat, chest pain or shortness of breath, cough, any abdominal pain, nausea/vomiting/diarrhea, constipation, dysuria, diarrhea, penile discharge or any other symptoms complaints or concerns at this time. Denies recent travel or sick contacts. Reports he feels safe denies any SI/HI/auditory visual hallucinations thoughts of self-injury. MD complaint: possible seizure Onset (ago): minute(s) (Prior to arrival) Description of Episode: other (Rolling of eyes back) -: second(s) Witnessed: Yes - by Other (Group staff member) Trauma: No Seizure History: Yes Place: [facility] Possible Precipitating Event: none Associated symptoms: denies other symptoms Treatments prior to arrival: none Related Data Home Medications Medication Instructions Recorded Confirmed blood pressure monitor #1 ea 11/13/20 01/08/21 clindamycin phosphate 1 % topical 1 appl TOPICAL BID 11/13/20 01/08/21 gel divalproex 500 mg tablet,delayed 500 mg PO BID 11/13/20 01/08/21 release melatonin 3 mg capsule 3 mg PO BEDTIME 11/13/20 01/08/21 omega-3 fatty acids-fish oil 360 1 cap PO BID 11/13/20 01/08/21 mg-1,200 mg capsule divalproex 250 mg PO BEDTIME 01/08/21 01/08/21 guanfacine [Intuniv ER] 2 mg PO QPM 01/08/21 01/08/21 polyethylene glycol 3350 [Miralax] 17 g PO BID 01/08/21 01/08/21 quetiapine 200 mg PO BEDTIME 01/08/21 01/08/21 quetiapine 300 mg PO BEDTIME 01/08/21 01/08/21 quetiapine [Seroquel] 50 mg PO DAILY 01/08/21 01/08/21 quetiapine [Seroquel] 50 mg PO DAILY PRN 01/08/21 01/08/21 Previous Rx's Medication Instructions Recorded docusate sodium 100 mg capsule 100 mg PO BID #60 cap 11/13/20 Allergies Allergy/AdvReac Type Severity Reaction Status Date / Time haloperidol [From HALDOL] Allergy Unknown UNKNOWN Verified 01/07/21 10:38 methylphenidate Allergy Unknown UNKNOWN Verified 01/07/21 10:38 [From RITALIN] shrimp [SHRIMP] Allergy Unknown HIVES Verified 01/07/21 10:38 Review of Systems Review of Systems: Constitutional : No Fever, No Chills, No Night Sweats, No Fatigue, No Malaise ENT/Mouth : No Ear Pain, No Nasal Congestion, No Sinus Pain, No sore throat, No Rhinorrhea Eyes: No Eye Pain, No Swelling, No Redness, No Foreign Body, No Discharge, No Vision Changes Cardiovascular : No Chest Pain, No SOB, No Dyspnea on Exertion, No Orthopnea, No Palpitations Respiratory : No Cough, No Sputum, No Wheezing, No Dyspnea Gastrointestinal : No Nausea, No Vomiting, No Diarrhea, No Constipation, No abdominal Pain, No Hematochezia, No Melena Genitourinary : No Dysuria, No Urinary Frequency, No Urinary Incontinence, No Urgency, No Flank Pain Musculoskeletal : No joint pain, No Myalgias Skin : No lacerations Neuro :+ possible seizure, No Focal weakness, No Numbness, No Paresthesias, No Loss of Consciousness, No Dizziness, No Headache Yes all other systems are reviewed and are negative [facility] Past Medical History Attestation statement: The following information was validated with the patient. Medical History Chronic abdominal pain Developmental disability Seizures XXYY syndrome Surgical History History of testicular surgery Family History Family History Other History of brain cancer Social History Social History Alcohol intake: never Smoking Status: Never smoker Use of substances other than those prescribed or required for medical reasons: No Advance Directives: No Advance Directives Information Provided: No Physical Exam Vital Signs: Vital Signs: Last Vital Signs Temp 98 F 02/14/21 13:59 Pulse 75 02/14/21 13:59 Resp 18 02/14/21 13:59 BP 121/70 02/14/21 13:59 Pulse Ox 98 02/14/21 13:59 Body Mass Index 41.5 Vital signs have been reviewed as normal and appeared to be correct. Blood pressure normal. Heart rate normal. Respiration rate normal. Temperature normal. Oxygen saturation normal. Appearance: Alert. Oriented X3. No acute distress. Head: Normal external exam. Normocephalic. Atraumatic. Able to rotate head bilaterally. Eyes: PERRLA. EOMI. No nystagmus noted. Conjunctiva and sclera normal. Eyelids normal. Corneal reflex normal. ENT: EAC normal. TM's Normal. Hearing normal. Pharynx normal. Uvula midline. tongue midline. Moist mucous membranes. No trismus noted. No drooling noted. No muffled voice noted. No nystagmus noted. Neck: Normal inspection. Neck supple. FROM. No adenopathy. Trachea midline. Thyroid Normal. No meningeal signs. No neck mass noted. CVS: Normal heart rate and rhythm. Heart sound normal. No murmurs noted. Pulses normal throughout. Respiratory: No respiratory distress. Painless inspiration. Breath sounds normal. No wheezes/rales/rhonchi noted. Chest nontender. No accessory muscle usage noted or decreased air movement noted. Abdomen: Soft and nontender. Bowel sounds normal in all 4 quadrants. No distention noted. No organomegaly noted. No visible injury noted. Back: No CVA tenderness. Full range of motion noted. Skin: Skin warm and dry. Normal skin color. Normal skin turgor. No rashes/lesions/lacerations noted. Extremities: No lower extremity edema. Extremities exhibit normal range of motion. Extremities nontender. Able to shrug shoulders bilaterally and keep up against resistance. Neuro: Oriented X 3. No motor deficit. No sensory deficit. Reflexes normal. Moving all extremities. No focal motor deficits. Cranial nerves II-XI intact bilaterally. Facial strength normal. Normal cognition. Speech normal. Gait normal. Strength 5/5 throughout. No pronator drift. No tremor noted. No fasciculations noted. No rigidity noted. Muscle tone normal throughout. No asterixis noted. Bfoyvk-ih-[id number] test normal. Heel to hicks test normal. Tandem gait normal. Does not sway with eyes open. Romberg test negative. Rapid alternating movement upper extremity normal. Rapid alternating movement lower extremity normal. Hand drop from overhead Misses face. Course Course Course Narrative: 1:40pm - 20-year-old male with a past medical history of developmental delay, seizures, nonepileptic seizures and pseudoseizures currently on Depakote 500 mg daily and 250 mg at night currently taking as prescribed per patient and [facility] presenting to the ED after possible seizure witnessed by his [facility] staff member prior to arrival where he reports the patient sitting watching TV after eating breakfast and his eyes rolled back and he was not responding to the [facility] staff member. - on exam patient is alert and oriented x3. Not in any acute distress. Back at baseline not postictal. No signs of trauma. Denies any complaints or concerns. No focal neuro deficits noted. Patient neuro intact. Vital signs are stable within normal limits. Lungs CTA. CV RRR. Abdomen is soft and nontender. - labs obtained including Depakote level in all within normal limits and Depakote level at therapeutic level. - I am unsure if the patient actually had a seizure due to his eyes only rolled back and he was not responding to the staff member and then he completely went back to baseline this could be a pseudo-seizure especially if the patient's labs are all within normal limits including Depakote level. Will DC home with instructions to continue taking his medications as previously prescribed and to return if any new or worsening symptoms. Patient and [facility] staff member at bedside they understand and agree with this plan. MDM - Seizure Medical Records Attestation: I reviewed the patient's medical records. Lab Data Attestation: I reviewed the patient's lab results. Result diagrams: 02/14/21 12:49 02/14/21 12:49 Labs: Lab Results 02/14/21 02/14/21 02/14/21 Range/Units 12:49 12:49 12:49 WBC 8.7 (4.8-10.8) X10*3/uL RBC 4.73 (4.60-5.80) X10*6/uL Hgb 13.6 L (14.0-18.0) g/dl Hct 43.8 (42-52) % MCV 92.6 (80-98) fL MCH 28.8 (27.0-33.0) pg MCHC 31.1 (31.0-36.0) g/dl RDW 13.9 (11.0-16.0) % Plt Count 207 (160-400) X10*3/uL MPV 10.0 (9.4-12.4) fL Immature Gran % (Auto) 0.2 (0.0-0.4) % Neut % (Auto) 58.6 (45-73) % Lymph % (Auto) 24.9 (20-40) % [place] % (Auto) 10.0 (2-11) % Eos % (Auto) 5.8 H (0-4) % Baso % (Auto) 0.5 (0-2) % Lymph # (Auto) 2.2 (1.2-4.9) X10*3/uL [place] # (Auto) 0.9 (0.1-1.2) X10*3/uL Eos # (Auto) 0.5 H (0.0-0.4) X10*3/uL Baso # (Auto) 0.0 (0.0-0.2) X10*3/uL Abs Immat Gran (auto) 0.02 (0.00-0.03) X10*3/uL Absolute Neuts (auto) 5.1 (2.0-8.3) X10*3/uL Absolute Nucleated RBC 0.000 (0.0-0.012) X10*3/uL Nucleated RBC % (auto) 0.0 (0.0-0.2) /100WBC PT 13.2 H (10.8-13.0) SEC INR 1.1 (0.9-1.1) Sodium 144 (135-145) mmol/L Potassium 4.6 (3.3-5.1) mmol/L Chloride 107 (96-108) mmol/L Carbon Dioxide 30 H (22-29) mmol/L Anion Gap 12 (12-20) BUN 20 H D (9-16) mg/dL Creatinine 0.94 (0.5-1.4) mg/dL Estim Creat Clear Calc 203.9 Estimated GFR > 60 Random Glucose 96 (60-115) mg/dL Calcium 9.4 (8.4-10.2) mg/dL Magnesium 2.1 (1.6-2.6) mg/dL Total Bilirubin 0.3 (0.0-1.0) mg/dL Direct Bilirubin 0.2 (0.0-0.5) mg/dL AST 27 (5-37) U/L ALT 34 (0-40) U/L Alkaline Phosphatase 97 (39-117) U/L Total Protein 7.1 (6.5-8.0) g/dL Albumin 3.9 (3.5-5.0) g/dL Valproic Acid (50.0-100.0) mcg/mL Ethyl Alcohol mg/dL Coronavirus (PCR) (Negative) Influenza Type A (PCR) (Negative) Influenza Type B (PCR) (Negative) RSV RNA Qual (PCR) (Negative) 02/14/21 02/14/21 02/14/21 Range/Units 12:49 12:49 12:49 WBC (4.8-10.8) X10*3/uL RBC (4.60-5.80) X10*6/uL Hgb (14.0-18.0) g/dl Hct (42-52) % MCV (80-98) fL MCH (27.0-33.0) pg MCHC (31.0-36.0) g/dl RDW (11.0-16.0) % Plt Count (160-400) X10*3/uL MPV (9.4-12.4) fL Immature Gran % (Auto) (0.0-0.4) % Neut % (Auto) (45-73) % Lymph % (Auto) (20-40) % [place] % (Auto) (2-11) % Eos % (Auto) (0-4) % Baso % (Auto) (0-2) % Lymph # (Auto) (1.2-4.9) X10*3/uL [place] # (Auto) (0.1-1.2) X10*3/uL Eos # (Auto) (0.0-0.4) X10*3/uL Baso # (Auto) (0.0-0.2) X10*3/uL Abs Immat Gran (auto) (0.00-0.03) X10*3/uL Absolute Neuts (auto) (2.0-8.3) X10*3/uL Absolute Nucleated RBC (0.0-0.012) X10*3/uL Nucleated RBC % (auto) (0.0-0.2) /100WBC PT (10.8-13.0) SEC INR (0.9-1.1) Sodium (135-145) mmol/L Potassium (3.3-5.1) mmol/L Chloride (96-108) mmol/L Carbon Dioxide (22-29) mmol/L Anion Gap (12-20) BUN (9-16) mg/dL Creatinine (0.5-1.4) mg/dL Estim Creat Clear Calc Estimated GFR Random Glucose (60-115) mg/dL Calcium (8.4-10.2) mg/dL Magnesium (1.6-2.6) mg/dL Total Bilirubin (0.0-1.0) mg/dL Direct Bilirubin (0.0-0.5) mg/dL AST (5-37) U/L ALT (0-40) U/L Alkaline Phosphatase (39-117) U/L Total Protein (6.5-8.0) g/dL Albumin (3.5-5.0) g/dL Valproic Acid 76.3 (50.0-100.0) mcg/mL Ethyl Alcohol < 10 mg/dL Coronavirus (PCR) NEGATIVE (Negative) Influenza Type A (PCR) NEGATIVE (Negative) Influenza Type B (PCR) NEGATIVE (Negative) RSV RNA Qual (PCR) NEGATIVE (Negative) Discharge Plan Discharge Clinical Impression: Seizure Patient Disposition: Home, Self-Care Instructions: Recurrent Seizures in Adults (ED) Additional Instructions: Continue taking your previously prescribed medications as previously prescribed. Follow up with her neurologist. Prescriptions: No Action divalproex 250 mg tablet,delayed release (DR/EC) 250 mg PO BEDTIME RF: 0 polyethylene glycol 3350 [Miralax] 17 gram/dose Powder 17 g PO BID RF: 0 quetiapine [Seroquel] 50 mg Tablet 50 mg PO DAILY PRN (Reason: Anxiety) RF: 0 quetiapine [Seroquel] 50 mg Tablet 50 mg PO DAILY RF: 0 guanfacine [Intuniv ER] 2 mg Tablet Extended Release 24 Hr 2 mg PO QPM RF: 0 quetiapine 300 mg Tablet 300 mg PO BEDTIME RF: 0 quetiapine 200 mg Tablet 200 mg PO BEDTIME RF: 0 clindamycin phosphate 1 % gel 1 appl topical BID RF: 0 melatonin 3 mg capsule 3 mg PO BEDTIME RF: 0 (DME) blood pressure monitor [Blood Pressure Kit] Kit See Rx Instructions .ROUTE .MEDSUPPLY Qty: 1 RF: 0 omega-3 fatty acids-fish oil [Fish Oil] 360-1,200 mg capsule 1 cap PO BID RF: 0 divalproex 500 mg tablet,delayed release (DR/EC) 500 mg PO BID RF: 0 docusate sodium [Colace] 100 mg capsule 100 mg PO BID Qty: 60 RF: 2 Referrals: Mar Burt MD [Primary Care Provider] - 2 days Jen Vann MD [Physician] - 2 days Interventions: ED Discharge Assessment Last Done: 02/14/21 14:13 Discharge Date/Time: 02/14/21 14:14 Print Language: Arabic
[2021-02-14 13:58] LABS: Influenza A PCR NEGATIVE (Negative); Influenza B PCR NEGATIVE (Negative); Resp Syncy Virus RNA Qual PCR NEGATIVE (Negative); SARS COV2 PCR INHOUSE NEGATIVE (Negative)
[2021-02-14 13:59] VITALS: BP 121/70; PULSE 75; RESP 18; TEMP 36.6; O2SAT 98
== END 2021-02-14 14:14 | disposition home or self-care (01) ==
PROVIDERS: Physician Assistant Medical; Emergency Provider Emergency Medicine; PCP Family Medicine
DX: R56.9 Unspecified convulsions (principal); Z20.822 Contact with and (suspected) exposure to COVID-19; Q98.0 Klinefelter syndrome karyotype 47, XXY; Z79.899 Other long term (current) drug therapy
CPT/HCPCS: 0241U; 36415; 80048; 80076; 80164; 80320; 83735; 85025; 85610; 99283; 99284

== ENCOUNTER 2021-02-17 17:39 | Emergency (ER) | payer MEDICAID, SELFPAY ==
[2021-02-17 17:46] VITALS: BP 150/90; PULSE 120; O2SAT 98
[2021-02-17 18:16] VITALS: BP 150/90; PULSE 120; RESP 20; TEMP 36.8; O2SAT 98; BMI 39.1
[2021-02-17 18:23] VITALS: RESP 20
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
--- NOTE | 2021-02-17 18:29 | PC.NURSE ---
USP: Jarvis Khalil (rn field case manager) [phone].
--- NOTE | 2021-02-17 18:48 | PC.NURSE ---
[facility]
--- NOTE | 2021-02-17 18:53 | PC.NURSE ---
Provider in, pt currently on the telephone. Pt states he is familiar w/ pod and w/ crisis process.
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
[2021-02-17] MEDS: LORazepam 1 MG TABLET 2 MG PO (20:11)
[2021-02-17 20:38] LABS: COVID-19 Test Negative (Negative)
[2021-02-17 21:02] LABS: Valproate 53.4 mcg/mL (50.0-100.0)
[2021-02-17 21:44] LABS: Amphetamine Screen Urine Not Detected (Not Detect); Barbiturates, Urine Not Detected (Not Detect); Benzodiazepines Screen Urine Not Detected (Not Detect); Cannabinoid Screen Urine POSITIVE (Not Detect); Cocaine Screen Urine Not Detected (Not Detect); Opiate Screen Urine Not Detected (Not Detect); Phencyclidine Screen Urine Not Detected (Not Detect)
[2021-02-18] VITALS (7 sets, daily range): BP systolic 108; BP diastolic 60; PULSE 98; RESP 16–24; TEMP 36.8; O2SAT 97
[2021-02-18] MEDS: LORazepam 1 MG TABLET 2 MG PO ×2 (07:20→12:15)
[2021-02-18] MEDS: OLANZapine 10 MG VIAL IM (07:20)
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
--- NOTE | 2021-02-18 10:21 | PC.NURSE ---
Pt sleeping at this time. RR even, unlabored. Will continue to monitor.
--- NOTE | 2021-02-18 11:39 | PC.NURSE ---
Pt continues to sleep. Will administer morning meds upon his arousal.
[2021-02-18] MEDS: Docusate Sodium 100 MG CAPSULE PO (11:50)
[2021-02-18] MEDS: polyethylene glycoL 3350 17 GM POWD.PACK PO (11:50)
[2021-02-18] MEDS: Divalproex Sodium 500 MG TABLET.DR PO (11:50)
[2021-02-18] MEDS: QUEtiapine Fumarate 50 MG TABLET PO (11:50)
--- NOTE | 2021-02-18 11:54 | PC.NURSE ---
Pt awake. Medicated with morning meds. Pt stating he wants to go home. He is reminded of plan for bed search, and receives message well. Currently sitting alone in common area. Will continue to monitor.
--- NOTE | 2021-02-18 12:25 | PC.NURSE ---
Pt in TV room, threatening to punch through glass panel again. Pt was agreeable to taking Ativan for his agitation. Upon medicating pt, he was re-directable away from glass panel. Currently sitting calmly in TV room. Will continue to monitor.
--- NOTE | 2021-02-18 13:51 | PC.NURSE ---
Pt sleeping at this time. RR even, unlabored.
--- NOTE | 2021-02-18 15:06 | PC.NURSE ---
Report received. Pt asleep at current. No signs of distress. RR even and unlabored. Continues to be a section 12 bed search.
--- NOTE | 2021-02-18 17:01 | PC.NURSE ---
Pt asleep at current. No signs of distress. RR even and unlabored.
--- NOTE | 2021-02-18 19:12 | PC.NURSE ---
Report received. PT is using the phone in the common area. Calm and cooperative. PT is inpatient bed search.
[2021-02-18] MEDS: diphenhydrAMINE HCL 50 MG/ML VIAL IM (20:08)
[2021-02-18] MEDS: Haloperidol Lactate 5 MG/ML VIAL IM (20:08)
[2021-02-18] MEDS: LORazepam 2 MG/ML VIAL IM (20:08)
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
[2021-02-19] MEDS: QUEtiapine Fumarate 200 MG TABLET PO ×2 (01:39→19:58)
[2021-02-19] MEDS: Divalproex Sodium 250 MG TABLET.DR PO ×2 (01:39→19:58)
[2021-02-19] MEDS: Divalproex Sodium 500 MG TABLET.DR PO ×3 (01:39→19:58)
[2021-02-19] MEDS: Melatonin 3 MG TABLET PO ×2 (01:39→19:58)
[2021-02-19] MEDS: QUEtiapine Fumarate 300 MG TABLET PO ×2 (01:40→19:59)
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
[2021-02-19] MEDS: polyethylene glycoL 3350 17 GM POWD.PACK PO ×3 (01:42→19:58)
[2021-02-19] MEDS: Docusate Sodium 100 MG CAPSULE PO ×3 (01:42→19:58)
--- NOTE | 2021-02-19 01:48 | PC.NURSE ---
PT was given IM meds just prior to scheduled night time meds and then fell asleep. PT woke up and received night time now so that he would not miss a scheduled dose.
[2021-02-19 06:00] VITALS: RESP 18
--- NOTE | 2021-02-19 07:02 | PC.NURSE ---
Report received. PT currently sleeping, respirations even and unlabored, in no apparent distress. PT is inpatient bedsearch.
--- NOTE | 2021-02-19 08:10 | PC.NURSE ---
[facility] requested pt notes, information faxed as requested.
--- NOTE | 2021-02-19 08:49 | MHC.CARE ---
per morning meeting and request CARE team contacted N in effort to clarify pt is a DDS bedsearch. Spoke with Ml at the bedsearch team and she was not aware if the DDS bedsearch is exhausted and t/w then left a message for Operations General Agent to further clarify.
[2021-02-19 09:13] VITALS: RESP 18
--- NOTE | 2021-02-19 09:31 | MHC.CARE ---
[facility] clarified that pt is a DDS (and adult) bedsearch.
[2021-02-19] MEDS: QUEtiapine Fumarate 50 MG TABLET PO (09:40)
--- NOTE | 2021-02-19 10:15 | MHC.CARE ---
0900hrs - Spoke with Jesse Khalil, Flame Burner at pt's long-term. I asked Mr. Khalil to provide some insight as to pt's behavior and what we can do to help support him. I also asked if a long-term staff member could be provided to stay with the pt. Mr. Khalil stated that he would call me back, it sounded like I woke him, with the information that I requested. CARE Team phone number provided.
[2021-02-19 14:38] VITALS: BP 135/90; PULSE 139; RESP 20; TEMP 36.6; O2SAT 97
[2021-02-19] MEDS: LORazepam 1 MG TABLET 2 MG PO ×2 (14:47→19:58)
--- NOTE | 2021-02-19 15:07 | MHC.CARE ---
1500hrs - Followed up with a phone call to Jesse Khalil from the skilled nursing. Message left requesting a return call.
[2021-02-19 18:00] VITALS: RESP 20
--- NOTE | 2021-02-19 18:30 | PC.NURSE ---
PT came out of his room, eye lids fluttering, pt told to sit on couch, pt sat and slumped to the side. Pt updated on plan of care and shook his head yes when asked if he understood. PT following commands.
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
[2021-02-19] MEDS: diphenhydrAMINE HCL 25 MG TABLET 50 MG PO (19:57)
[2021-02-19 20:00] VITALS: RESP 16
--- NOTE | 2021-02-19 20:13 | PC.NURSE ---
Pt medicated as ordered, states I'm stressed out and requesting to leave ED BH Pod. Pt is redirectable and cooperative with staff, and remains in behavioral control at this time, but is stressed/anxious. Per Kiera (care team), she has attempted to contact multiple facilities and has been communicating with the patient's prison, but remains bedsearch section 12 at this time. Requesting to lay on the floor instead of the bed, stating I just feel more comfortable that way . Okayed by this RN, rural health consultant (Coty Wood), & provider aware. Given weighted blanket for comfort. Able to make needs known, and encouraged to express feelings & ask questions. Will continue to monitor.
--- NOTE | 2021-02-19 20:24 | MHC.CARE ---
CARE Team speaks with pt regarding plan for team meeting tomorrow. Pt agrees to utilize staff support in order to maintain emotional regulation and physical safety. Pt voices that he would like to be discharged back to program. CARE Team encourages pt to continue to be calm and cooperative awaiting this meeting.
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
--- NOTE | 2021-02-19 23:14 | PC.NURSE ---
Patient in bed appears sleeping, no distress/observed, per report patient had decent day, will continue to monitor.
--- NOTE | 2021-02-20 06:55 | PC.NURSE ---
Report received. PT currently sleeping, respirations even and unlabored, in no apparent distress. PT is inpatient bedsearch.
[2021-02-20] MEDS: polyethylene glycoL 3350 17 GM POWD.PACK PO ×2 (08:32→20:02)
[2021-02-20] MEDS: QUEtiapine Fumarate 50 MG TABLET PO (08:32)
[2021-02-20] MEDS: Divalproex Sodium 500 MG TABLET.DR PO ×2 (08:32→20:02)
[2021-02-20] MEDS: Docusate Sodium 100 MG CAPSULE PO ×2 (08:32→20:02)
[2021-02-20 08:35] VITALS: BP 107/53; PULSE 102; RESP 18; TEMP 36.4; O2SAT 95
--- NOTE | 2021-02-20 10:27 | PC.NURSE ---
BHN at bedside for MSU
--- NOTE | 2021-02-20 11:15 | PC.NURSE ---
Per N pt will remain an inpatient bedsearch
[2021-02-20] MEDS: diphenhydrAMINE HCL 25 MG TABLET 50 MG PO ×2 (11:44→19:22)
[2021-02-20] MEDS: LORazepam 1 MG TABLET 2 MG PO ×2 (11:44→19:22)
--- NOTE | 2021-02-20 11:47 | PC.NURSE ---
Pt asking when he can leave. Plan of care explained. PT continues to repeat he wants to leave. Pt appears restless, moving from his room to common and back frequently. PT offered and accepted PRN medication, continues to ask when he can leave.
[2021-02-20 16:58] VITALS: BP 133/87; PULSE 122; RESP 17; TEMP 36.7; O2SAT 97
--- NOTE | 2021-02-20 17:06 | PC.NURSE ---
senior living staff in to sit with PT
[2021-02-20] MEDS: HaloperidoL 5 MG TABLET PO (19:22)
[2021-02-20] MEDS: QUEtiapine Fumarate 200 MG TABLET PO (20:01)
[2021-02-20] MEDS: Divalproex Sodium 250 MG TABLET.DR PO (20:02)
[2021-02-20] MEDS: QUEtiapine Fumarate 300 MG TABLET PO (20:02)
[2021-02-20] MEDS: Melatonin 3 MG TABLET PO (20:02)
--- NOTE | 2021-02-20 20:12 | PC.NURSE ---
Patient was very upset, angry, and frustrated over being here in behavioral pod, per report detention still does't wants him back, provider notified/ PRN Haldol 5 mg po, Benadryl 50 mg PO, and Ativan 2 mg po, administered as ordered. to avoid behavioral escalation, care team called for help, care team spoke with patient, patient is aware of his plan, HS PO medication administered/patient compliant, currently resting in his bed, will continue to monitor.
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
[2021-02-21 02:48] VITALS: BP 131/86; PULSE 108; RESP 18; TEMP 37.1; O2SAT 96
--- NOTE | 2021-02-21 07:24 | PC.NURSE ---
Report received from LUC Johnson. Pt resting, resp unlabored. Staff from [facility] present.
--- NOTE | 2021-02-21 07:30 | PC.NURSE ---
CARE team called to clarify discharge plans. Care team will review and update.
[2021-02-21 08:22] VITALS: BP 145/90; PULSE 134; RESP 18; O2SAT 96
[2021-02-21] MEDS: polyethylene glycoL 3350 17 GM POWD.PACK PO (08:30)
[2021-02-21] MEDS: QUEtiapine Fumarate 50 MG TABLET PO (08:30)
[2021-02-21] MEDS: Docusate Sodium 100 MG CAPSULE PO (08:30)
[2021-02-21] MEDS: Divalproex Sodium 500 MG TABLET.DR PO (08:30)
[2021-02-21 08:39] VITALS: PULSE 120
--- NOTE | 2021-02-21 08:58 | ECG_ITS ---
Test Reason : TACK Blood Pressure : / mmHG Vent. Rate : 105 BPM Atrial Rate : 105 BPM P-R Int : 144 ms QRS Dur : 076 ms QT Int : 328 ms P-R-T Axes : 052 026 027 degrees QTc Int : 433 ms Sinus tachycardia Otherwise normal ECG When compared with ECG of 29-DEC-2020 13:48, No significant change was found Referred By: Aneta Yang Electronically Signed By:MARY KEYES
--- NOTE | 2021-02-21 09:33 | PC.NURSE ---
BHN in to evaluate pt. Staff from [facility] given medications the [facility] had brought in as requested by staff present on unit.. Given after consulting w/ care team. Per staff, [facility] will bring to pt.
--- NOTE | 2021-02-21 09:35 | PC.NURSE ---
Late entry: EKG completed as ordered. Pt denies any concerns or complaints.
[2021-02-21 10:00] VITALS: RESP 20
--- NOTE | 2021-02-21 10:49 | PC.NURSE ---
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 Pt's mother: [phone]; [phone]. Terri, from pt's [facility], called stating they would like to meet w/ mother to give her pt's medications: Terri [phone].
--- NOTE | 2021-02-21 11:29 | PC.NURSE ---
Report received. Pt resting in room at current, no complaints at this time, calm and cooperative.
--- NOTE | 2021-02-21 11:30 | PC.NURSE ---
Confirmed with Ruth at [facility] that she will meet pt's mother in the ED lobby to deliver pt's medications when pt is d/c'd at 1230.
== END 2021-02-21 12:41 | disposition home or self-care (01) ==
PROVIDERS: Physician Assistant; Emergency Provider Emergency Medicine; PCP Family Medicine
DX: R45.6 Violent behavior (principal); R00.0 Tachycardia, unspecified; F43.0 Acute stress reaction; S60.512A Abrasion of left hand, initial encounter; S60.511A Abrasion of right hand, initial encounter; X58.XXXA Exposure to other specified factors, initial encounter; Y93.9 Activity, unspecified; Y92.239 Unspecified place in hospital as the place of occurrence of the external cause; Y99.9 Unspecified external cause status; I10 Essential (primary) hypertension; F17.200 Nicotine dependence, unspecified, uncomplicated; Z20.822 Contact with and (suspected) exposure to COVID-19; Z79.899 Other long term (current) drug therapy; Z71.6 Tobacco abuse counseling; F12.90 Cannabis use, unspecified, uncomplicated
CPT/HCPCS: 36415; 80164; 80307; 87635; 93005; 96372; 99285; J1200; J2060; Q0163

== ENCOUNTER 2021-05-05 22:25 | Emergency (ER) | payer MEDICAID, SELFPAY ==
[2021-05-05 22:42] VITALS: BP 109/60; PULSE 82; RESP 16; TEMP 36.6; O2SAT 63; BMI 41.5
--- NOTE | 2021-05-05 22:51 | ED_ITS ---
HPI - Psych General Chief Complaint: Psychiatric Symptoms Stated Complaint: SECTION 12 Time Seen by Provider: 05/05/21 22:32 Source: patient and EMS Mode of arrival: EMS History of Present Illness HPI Narrative: This is a 20-year-old male known well to the emergency room who was sent in from the halfway on a Section 12 stated that patient had endorsed SI numerous times and patient identifies a feels triggered by his recent court case. Patient states he has been fighting with the halfway residence and feels like he ?always wants to fight?. Otherwise, denies any fever, chills, shortness of breath, chest pain. Related Data Home Medications Medication Instructions Recorded Confirmed blood pressure monitor #1 ea 11/13/20 05/05/21 clindamycin phosphate 1 % topical 1 appl TOPICAL BID 11/13/20 05/05/21 gel melatonin 3 mg capsule 3 mg PO BEDTIME 11/13/20 05/05/21 omega-3 fatty acids-fish oil 360 1 cap PO BID 11/13/20 05/05/21 mg-1,200 mg capsule guanfacine [Intuniv ER] 4 mg PO QAM 01/08/21 05/05/21 polyethylene glycol 3350 [Miralax] 17 g PO BID 01/08/21 05/05/21 quetiapine 200 mg PO BEDTIME 01/08/21 05/05/21 quetiapine 300 mg PO BEDTIME 01/08/21 05/05/21 quetiapine [Seroquel] 50 mg PO DAILY 01/08/21 05/05/21 quetiapine [Seroquel] 50 mg PO DAILY PRN 01/08/21 05/05/21 divalproex 500 mg tablet,delayed 1,000 mg PO BID tab 04/08/21 05/05/21 release Previous Rx's Medication Instructions Recorded docusate sodium 100 mg capsule 100 mg PO BID #60 cap 02/26/21 Allergies Allergy/AdvReac Type Severity Reaction Status Date / Time methylphenidate Allergy Unknown UNKNOWN Verified 04/08/21 13:39 [From RITALIN] shrimp [SHRIMP] Allergy Unknown HIVES Verified 04/08/21 13:39 haloperidol [From Haldol] Allergy Unknown Verified 04/08/21 13:40 Review of Systems Review of Systems: Pertinent positives and negatives as stated in HPI 10 point review of systems is otherwise negative. PMFSH Past Medical History Source: nursing notes reviewed Medical History Chronic abdominal pain Developmental disability Seizures XXYY syndrome Surgical History History of testicular surgery Family History Family History Other History of brain cancer Social History Social History Alcohol intake: never Use of substances other than those prescribed or required for medical reasons: Yes Substance Use Type: Marijuana Substance Use Frequency: Weekly Last Used Substance: Unknown Any prior treatment program specific to substance use: No Advance Directives: No Advance Directives Information Provided: No Physical Exam Vital Signs: Vital Signs: Last Vital Signs Temp 97.8 F 05/05/21 22:42 Pulse 82 05/05/21 22:42 Resp 16 05/06/21 00:00 BP 109/60 05/05/21 22:42 Pulse Ox 63 L 05/05/21 22:42 Body Mass Index 41.5 VITAL SIGNS: Reviewed. GENERAL: Well developed, well nourished, in no acute distress. HEAD: Normocephalic/atraumatic EYES: PERRLA, EOMI OROPHARYNX: no oral lesions noted, posterior pharynx clear NECK: Supple, no adenopathy LUNGS: Normal breath sounds. No adventitious sounds or accessory muscle use. CARDIOVASCULAR: Regular rate and rhythm without noted murmurs ABDOMEN: Soft, non-tender, non-distended with bowel sounds. NEUROLOGIC: Alert and oriented x 4. PSYCH: Aggressive, flat affect Course Course Course Narrative: This is a 20-year-old male with history and clinical presentation consistent with depression, aggression and prior suicidal ideation now presents with SI. Patient is otherwise medically cleared for evaluation by N. Reevaluation(s) Reevaluation #1: Patient placed in physician observation because the patient needed more time for BHN evaluation. At the time observation was started the patient's vital signs were stable, patient is alert and oriented but slightly agitated, neuro: Nonfocal, CV RRR, lungs clear Time: 23:30 Discharge Plan Discharge Prescriptions: No Action docusate sodium [Colace] 100 mg capsule 100 mg PO BID Qty: 60 RF: 2 polyethylene glycol 3350 [Miralax] 17 gram/dose Powder 17 g PO BID RF: 0 quetiapine [Seroquel] 50 mg Tablet 50 mg PO DAILY PRN (Reason: Anxiety) RF: 0 quetiapine [Seroquel] 50 mg Tablet 50 mg PO DAILY RF: 0 guanfacine [Intuniv ER] 2 mg Tablet Extended Release 24 Hr 4 mg PO QAM RF: 0 quetiapine 300 mg Tablet 300 mg PO BEDTIME RF: 0 quetiapine 200 mg Tablet 200 mg PO BEDTIME RF: 0 clindamycin phosphate 1 % gel 1 appl topical BID RF: 0 melatonin 3 mg capsule 3 mg PO BEDTIME RF: 0 (DME) blood pressure monitor [Blood Pressure Kit] Kit See Rx Instructions .ROUTE .MEDSUPPLY Qty: 1 RF: 0 omega-3 fatty acids-fish oil [Fish Oil] 360-1,200 mg capsule 1 cap PO BID RF: 0
--- NOTE | 2021-05-05 22:56 | PC.NURSE ---
pt initially very hesitant to get changed over, clenching fits, refusing to give up ipad, endorsing si, wants to kill himself tonight . wants to fight , intially md and RN able to talk patient down, pt states wants to be discharged tomorrow. education provided that fighting staff will not allow for plan of care toinclude discharge.
[2021-05-06] VITALS: RESP 16
--- NOTE | 2021-05-06 00:52 | PC.NURSE ---
PATIENT RESTING IN ROOM, NO DISTRESS NOTED. SKIN IS P,D,W. FAXED PAPERWORK TO [facility] FOR EVALUATION.
[2021-05-06 02:00] VITALS: RESP 16
[2021-05-06 04:00] VITALS: RESP 16
--- NOTE | 2021-05-06 07:14 | PC.NURSE ---
pt resting in bed at this time. resp even and unlabored. waiting to be seen by bhn.
[2021-05-06 10:00] VITALS: PULSE 16
--- NOTE | 2021-05-06 10:11 | PC.NURSE ---
pt was seen in community by maeve, plan for eval at some time today. if bhn does not re eval. care team will dc pt back to assisted.
[2021-05-06 12:00] VITALS: RESP 18
--- NOTE | 2021-05-06 12:21 | PC.NURSE ---
pt making staff aware that he is upset and really wants to break the glass. pt aware to give regina from the care team until 4pm to know if he is definitely going home.
--- NOTE | 2021-05-06 13:18 | PC.NURSE ---
plan for pt to dc to skilled nursing.
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
== END 2021-05-06 13:56 | disposition home or self-care (01) ==
PROVIDERS: Emergency Provider Student in an Organized Health Care Education/Training Program
DX: R45.851 Suicidal ideations (principal); F39 Unspecified mood [affective] disorder; F89 Unspecified disorder of psychological development; Q98.4 Klinefelter syndrome, unspecified; F12.90 Cannabis use, unspecified, uncomplicated; R45.1 Restlessness and agitation; Z79.899 Other long term (current) drug therapy
CPT/HCPCS: 96372; 99285

== ENCOUNTER 2021-05-19 10:45 | Outpatient (REF) | payer MEDICAID, SELFPAY ==
[2021-05-19 11:00] LABS: MANUAL DIFF FLAG NO
[2021-05-19 12:38] LABS: Basophils Percent Auto 0.4 % (0-2); Eosinophils Absolute Auto 0.5 X10*3/uL (0.0-0.4); Eosinophils Percent Auto 5.4 % (0-4); Hematocrit 46.9 % (42-52); Imm Gran Abs Auto 0.03 X10*3/uL (0.00-0.03); Imm Gran Pct Auto 0.3 % (0.0-0.4); Lymphocytes Absolute Auto 3.5 X10*3/uL (1.2-4.9); Lymphocytes Percent Auto 38.8 % (20-40); Mean Corpuscular Hemoglobin 28.8 pg (27.0-33.0); Mean Corpuscular Volume 90.2 fL (80-98); Mean Platelet Volume 11.3 fL (9.4-12.4); Monocytes Absolute Auto 0.6 X10*3/uL (0.1-1.2); Monocytes Percent Auto 7.1 % (2-11); Neutrophils Absolute Auto 4.3 X10*3/uL (2.0-8.3); Platelet Count 206 X10*3/uL (160-400); Red Cell Distribution Width 13.9 % (11.0-16.0)
[2021-05-19 13:55] LABS: Alanine Aminotransferase 47 U/L (0-40); Albumin Level 4.3 g/dL (3.5-5.0); Alkaline Phosphatase 116 U/L (39-117); Anion Gap 14 (12-20); Aspartate Amino Transferase 30 U/L (5-37); Bilirubin Total 0.5 mg/dL (0.0-1.0); Blood Urea Nitrogen 17 mg/dL (9-16); Calcium 9.6 mg/dL (8.4-10.2); Carbon Dioxide 26 mmol/L (22-29); Chloride 105 mmol/L (96-108); Cholesterol 194 mg/dL; Estimated Glomerular Filt Rate > 60; Glucose Fasting 82 mg/dL (60-99); HDL Cholesterol 32 mg/dL; LDL Cholesterol Calculated 109 mg/dl; Potassium 4.3 mmol/L (3.3-5.1); Sodium 141 mmol/L (135-145); Total Protein 7.9 g/dL (6.5-8.0); Triglycerides 267 mg/dL
[2021-05-19 14:16] LABS: TSH reflex Free T4 0.81 uIU/mL (0.32-4.0)
== END 2021-05-19 10:46 | disposition home or self-care (01) ==
LOC: HO.LAB 10:45
PROVIDERS: Absent Provider Psychiatry & Neurology Psychiatry; PCP Nurse Practitioner Family; Visit Provider Nurse Practitioner Family
DX: Z00.00 Encounter for general adult medical examination without abnormal findings (principal); F63.81 Intermittent explosive disorder; R74.8 Abnormal levels of other serum enzymes; Z79.899 Other long term (current) drug therapy
CPT/HCPCS: 36415; 80053; 80061; 84443; 85025

== ENCOUNTER 2021-05-21 10:59 | Outpatient (REF) | payer MEDICAID, SELFPAY ==
[2021-05-22 08:08] LABS: HBS Num1 0.22 mIU/mL (0-7.99); ~Hepatitis B Surface Antibody NONREACTIVE (Nonreactive)
[2021-05-22 08:53] LABS: HBc Num1 0.41 S/CO (0.00-0.79); HBsAGNum1 0.18 S/CO (0.00-0.99); Hepatitis B Core Antibody Nonreactive (Nonreactive); Hepatitis B Surface Antigen Negative (Negative); ~HepC Num1 0.11 S/CO (0.00-0.79); ~Hepatitis C Antibody Nonreactive (Nonreactive)
[2021-05-22 09:06] LABS: Hepatitis A Antibody IgM 0.29 Index (0-0.79); ~Hepatitis A Antibody IgM Nonreactive (Nonreactive)
== END 2021-05-21 11:00 | disposition home or self-care (01) ==
LOC: HO.LAB 10:59
PROVIDERS: PCP Nurse Practitioner Family; Visit Provider Nurse Practitioner Family
DX: Z01.84 Encounter for antibody response examination (principal); Z11.59 Encounter for screening for other viral diseases; R74.8 Abnormal levels of other serum enzymes
CPT/HCPCS: 36415; 86704; 86706; 86709; 86803; 87340

== ENCOUNTER 2021-06-15 08:30 | Outpatient (REF) | payer MEDICAID, SELFPAY ==
--- NOTE | ~2021-06-15 | US_ITS ---
EXAMINATION: US ABDOMEN COMPLETE CLINICAL INFORMATION: Abnormal levels of other serum enzymes. COMPARISON: Ultrasound abdomen complete 12/24/2020. CT abdomen and pelvis 11/11/2020. X-ray abdomen KUB 07/26/2020. TECHNIQUE: Real-time imaging of the abdominal viscera. FINDINGS: PANCREAS: The tail of the pancreas is partially obscured by overlying gas. The visualized head and the body of the pancreas are homogeneous in echotexture. No focal lesion seen. ABDOMINAL AORTA: The proximal, mid, and distal segments are normal in caliber. INFERIOR VENA CAVA: Visualized portions are normal. LIVER: The liver is enlarged. The liver contour is normal. There is a diffuse echogenic liver with area of focal fatty sparing in the left lobe. No focal hepatic lesion. There is no intrahepatic biliary duct dilatation seen. GALLBLADDER: Normal. The gallbladder is physiologically distended without evidence of stones, sludge, polyps, wall thickening or pericholecystic fluid. COMMON BILE DUCT: Normal in caliber measuring 0.3 cm in diameter. RIGHT KIDNEY: Normal. No hydronephrosis. No renal calculi or focal parenchymal lesions. The kidney measures 12.3 cm in maximum dimension. LEFT KIDNEY: Normal. No hydronephrosis. No renal calculi or focal parenchymal lesions. The kidney measures 12.3 cm in maximum dimension. SPLEEN: Normal. The spleen measures 10.8 cm in maximum dimension. FREE FLUID: None. US/US abdomen complete IMPRESSION: Diffuse fatty liver with areas of focal fatty sparing in the left lobe. Mild hepatomegaly. The rest of the abdominal ultrasound is unremarkable.
== END 2021-06-15 08:31 | disposition home or self-care (01) ==
LOC: HO.HMGCX 08:30
PROVIDERS: PCP Nurse Practitioner Family; Visit Provider Nurse Practitioner Family
DX: R74.8 Abnormal levels of other serum enzymes (principal)
CPT/HCPCS: 76700

== ENCOUNTER 2021-07-09 01:34 | Emergency (ER) | payer MEDICAID, SELFPAY ==
[2021-07-09 01:41] VITALS: BP 168/54; PULSE 112; RESP 15; O2SAT 98; BMI 46.8
[2021-07-09] MEDS: LORazepam 1 MG TABLET 2 MG PO (01:52)
--- NOTE | 2021-07-09 01:53 | ED_ITS ---
HPI - General Adult General Chief complaint: General Medical Stated complaint: psuedo-seizure Time Seen by Provider: 07/09/21 01:40 Source: patient and EMS Mode of arrival: EMS Limitations: no limitations History of Present Illness HPI narrative: Patient got upset with fdc staff became anxious and today's seizure lasting for few minutes similar to that what he had in the past when [facility] gets [facility]. Patient does use cocaine and get agitated often with staff Related Data Home Medications Medication Instructions Recorded Confirmed blood pressure monitor (Blood #1 ea 11/13/20 07/07/21 Pressure Kit) clindamycin phosphate 1 % topical 1 appl TOPICAL BID 11/13/20 07/07/21 gel melatonin 3 mg capsule 3 mg PO BEDTIME 11/13/20 07/07/21 omega-3 fatty acids-fish oil 360 1 cap PO BID 11/13/20 07/07/21 mg-1,200 mg capsule (Fish Oil) guanfacine 2 mg tablet,extended 4 mg PO QAM 01/08/21 07/07/21 release 24 hr (Intuniv ER) quetiapine 200 mg tablet 200 mg PO BEDTIME 01/08/21 07/07/21 quetiapine 300 mg tablet 300 mg PO BEDTIME 01/08/21 07/07/21 quetiapine 50 mg tablet (Seroquel) 50 mg PO DAILY 01/08/21 07/07/21 quetiapine 50 mg tablet (Seroquel) 50 mg PO DAILY PRN 01/08/21 07/07/21 divalproex 500 mg tablet,delayed 1,000 mg PO BID tab 04/08/21 07/07/21 release Previous Rx's Medication Instructions Recorded docusate sodium 100 mg capsule 100 mg PO BID #60 cap 02/26/21 (Colace) dexamethasone 4 mg tablet 4 mg PO DAILY 9 Days #18 tab 07/07/21 polyethylene glycol 3350 17 17 g PO BID 30 Days #1020 g 07/07/21 gram/dose oral powder (Miralax) Allergies Allergy/AdvReac Type Severity Reaction Status Date / Time methylphenidate Allergy Unknown UNKNOWN Verified 05/12/21 11:24 [From RITALIN] shrimp [SHRIMP] Allergy Unknown HIVES Verified 05/12/21 11:24 haloperidol [From Haldol] Allergy Unknown Verified 05/12/21 11:24 Review of Systems Review of Systems: Yes all other systems are reviewed and are negative [facility] Past Medical History Medical History Chronic abdominal pain Developmental disability Seizures XXYY syndrome Surgical History History of testicular surgery Family History Family History Father No problems noted. Mother Hypertension Diabetes Other History of brain cancer Social History Social History Housing: Assisted Living Facility Alcohol intake: never Patient Tobacco Use Status: Current everyday Tobacco user Tobacco use type: Cigarette Cigarettes Per Day: 3 Years Smoked: 16 years old e-Cigarette/Vaping Use: Currently Using Use of substances other than those prescribed or required for medical reasons: Yes Substance Use Type: Crack/Cocaine and Marijuana Substance Use Type Other:: pt states he been using cocaine and believe he is withdrawing. Substance Use Frequency: Daily Last Used Substance: Hours (ago) Any prior treatment program specific to substance use: No (he report he does not want to get help) Advance Directives: No Advance Directives Information Provided: No service: No Current occupational status: disabled Physical Exam Vital Signs: Vital Signs: Last Vital Signs Pulse 112 H 07/09/21 01:41 Resp 15 07/09/21 01:41 BP 168/54 H 07/09/21 01:41 Pulse Ox 98 07/09/21 01:41 Body Mass Index 46.8 Appearance: Alert. Oriented X3. No acute distress. Eyes: PERRLA, No Nystagmus ENT: Pharynx normal. Oral Mucosa moist Neck: Normal inspection. Neck supple. CVS: Normal heart rate and rhythm. Pulses normal. Respiratory: No respiratory distress. Equal air entry bilateral, no wheezing/rales/rhonchi Abdomen: Soft and nontender. Skin: Skin warm and dry. Normal skin color. Normal skin turgor. Extremities: No lower extremity edema. No calf tenderness Neuro: Oriented X 3. Stable mood no hallucination or delusion Medical Decision Making MDM Narrative Medical decision making narrative: Patient with bipolar disorder with frequent agitation with pseudoseizures 2 mg of Ativan given patient feels relaxed will discharge back to fdc Discharge Plan Discharge Clinical Impression: Anxiety, Psychogenic nonepileptic seizure Patient Disposition: Xfer Other Instructions: Nonepileptic Seizures (ED), Anxiety (ED) Additional Instructions: Taking medication follow-up with your therapist Prescriptions: No Action docusate sodium [Colace] 100 mg capsule 100 mg PO BID Qty: 60 RF: 2 polyethylene glycol 3350 [Miralax] 17 gram/dose powder 17 g PO BID 30 Days Qty: 1020 RF: 2 quetiapine [Seroquel] 50 mg Tablet 50 mg PO DAILY PRN (Reason: Anxiety) RF: 0 quetiapine [Seroquel] 50 mg Tablet 50 mg PO DAILY RF: 0 guanfacine [Intuniv ER] 2 mg Tablet Extended Release 24 Hr 4 mg PO QAM RF: 0 quetiapine 300 mg Tablet 300 mg PO BEDTIME RF: 0 quetiapine 200 mg Tablet 200 mg PO BEDTIME RF: 0 dexamethasone 4 mg tablet 4 mg PO DAILY 9 Days Qty: 18 RF: 0 clindamycin phosphate 1 % gel 1 appl topical BID RF: 0 melatonin 3 mg capsule 3 mg PO BEDTIME RF: 0 (DME) blood pressure monitor [Blood Pressure Kit] Kit See Rx Instructions .ROUTE .MEDSUPPLY Qty: 1 RF: 0 omega-3 fatty acids-fish oil [Fish Oil] 360-1,200 mg capsule 1 cap PO BID RF: 0 divalproex 500 mg tablet,delayed release (DR/EC) 1,000 mg PO BID RF: 0
--- NOTE | 2021-07-09 02:06 | PC.NURSE ---
pt A&O, no sob or chest pain. pt states he using cocaine daily. refusing to get help. Juan not want anyone in retirement to know. provider is aware.
== END 2021-07-09 02:27 | disposition other institution (70) ==
PROVIDERS: Emergency Provider Internal Medicine
DX: F41.9 Anxiety disorder, unspecified (principal); F44.5 Conversion disorder with seizures or convulsions; F17.210 Nicotine dependence, cigarettes, uncomplicated
CPT/HCPCS: 99283; 99284

== ENCOUNTER 2021-07-29 10:27 | Emergency (ER) | payer MEDICAID, SELFPAY ==
[2021-07-29] VITALS (7 sets, daily range): BP systolic 101–156; BP diastolic 58–103; PULSE 63–108; RESP 16–18; TEMP 36.2–36.8; O2SAT 96–97; BMI 42.4
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
[2021-07-29] MEDS: LORazepam 2 MG/ML VIAL IM (10:56)
[2021-07-29] MEDS: OLANZapine 10 MG VIAL 5 MG IM (10:57)
[2021-07-29 13:11] LABS: MANUAL DIFF FLAG NO
[2021-07-29 13:14] LABS: Basophils Percent Auto 0.2 % (0-2); Eosinophils Absolute Auto 0.2 X10*3/uL (0.0-0.4); Eosinophils Percent Auto 1.9 % (0-4); Hematocrit 42.7 % (42-52); Hemoglobin 13.9 g/dl (14.0-18.0); Imm Gran Abs Auto 0.03 X10*3/uL (0.00-0.03); Imm Gran Pct Auto 0.4 % (0.0-0.4); Lymphocytes Absolute Auto 2.7 X10*3/uL (1.2-4.9); Lymphocytes Percent Auto 31.9 % (20-40); Mean Corpuscular HGB Conc 32.6 g/dl (31.0-36.0); Mean Corpuscular Hemoglobin 29.6 pg (27.0-33.0); Mean Corpuscular Volume 90.9 fL (80-98); Mean Platelet Volume 10.4 fL (9.4-12.4); Monocytes Absolute Auto 0.7 X10*3/uL (0.1-1.2); Monocytes Percent Auto 8.6 % (2-11); Neutrophils Absolute Auto 4.8 X10*3/uL (2.0-8.3); Platelet Count 227 X10*3/uL (160-400); Red Cell Distribution Width 14.4 % (11.0-16.0); White Blood Count 8.4 X10*3/uL (4.8-10.8)
[2021-07-29 13:32] LABS: Alanine Aminotransferase 58 U/L (0-40); Albumin Level 4.1 g/dL (3.5-5.0); Alkaline Phosphatase 100 U/L (39-117); Anion Gap 13 (12-20); Aspartate Amino Transferase 49 U/L (5-37); Bilirubin Direct 0.3 mg/dL (0.0-0.5); Bilirubin Total 0.6 mg/dL (0.0-1.0); Blood Urea Nitrogen 17 mg/dL (9-16); Calcium 10.1 mg/dL (8.4-10.2); Carbon Dioxide 27 mmol/L (22-29); Chloride 106 mmol/L (96-108); Creatinine Clr Calc Pharmacy 190.5; Estimated Glomerular Filt Rate > 60; Glucose Random 82 mg/dL (60-115); Potassium 4.5 mmol/L (3.3-5.1); Sodium 141 mmol/L (135-145); Total Protein 7.4 g/dL (6.5-8.0)
[2021-07-29 13:33] LABS: COVID-19 Test Negative (Negative)
[2021-07-29 13:36] LABS: Valproate 60.3 mcg/mL (50.0-100.0)
--- NOTE | 2021-07-29 14:06 | PC.NURSE ---
please see restraint paper documentation. patient now released from restraints, pt calm/cooperative currently sleeping
--- NOTE | 2021-07-29 16:12 | PC.NURSE ---
patient continues to sleep, no c/o pain or discomfort
--- NOTE | 2021-07-29 16:32 | PC.NURSE ---
[facility] was notified a second time since they had called stating they couldn't be notified until the patient was cleared.
--- NOTE | 2021-07-29 17:37 | PC.NURSE ---
patient continues to be sleeping, calm/compliant- arousable to stimulus.
--- NOTE | 2021-07-29 17:47 | PHA.MEDREC ---
Pharmacy Consult ? Medication Reconciliation Pharmacy has completed the medication reconciliation. LIST FROM [facility] IN CHART. UNABLE TO SPEAK WITH PATIENT DUE TO BEING MEDICATED.
--- NOTE | 2021-07-29 17:51 | PC.NURSE ---
patient states he isnt mad, pt apologizing for what happened earlier, pt currently eating- pt stated he feels a little anxious and would like medication to help, provider notified and ativan is being ordered
[2021-07-29] MEDS: LORazepam 1 MG TABLET 2 MG PO (17:54)
--- NOTE | 2021-07-29 17:58 | PC.NURSE ---
patient medicated per order
--- NOTE | 2021-07-29 18:16 | PC.NURSE ---
[facility] here to speak with the patient
--- NOTE | 2021-07-29 19:18 | PC.NURSE ---
Patient in bed appears sleeping, [facility] just saw the patient, pending disposition, will continue to monitor.
--- NOTE | 2021-07-30 05:27 | PC.NURSE ---
Patient slept through the night, no distress observed/reported, patient got assessed by [facility], disposition is d/c back to skilled nursing, patient and group in agreement with plan, care team will facilitate the transportation, VSS, behavior appropriate, will continue to monitor.
[2021-07-30 05:41] VITALS: BP 123/76; PULSE 87; RESP 16; TEMP 36.8; O2SAT 96
--- NOTE | 2021-07-30 07:22 | PC.NURSE ---
patient appears to remain at rest at present, respirations appear even and unlabored, anticipate dc today to care home
--- NOTE | 2021-07-30 08:47 | PC.NURSE ---
t/w called certified wellness program manager from [facility] who said a team meeting needed to be held by her staff to have a safe discharge. relayed information to care team, will request med rec be reviewed.
[2021-07-30] MEDS: OLANZapine ODT 10 MG TAB.RAPDIS 5 MG TRANSLINGU (09:20)
--- NOTE | 2021-07-30 09:20 | PC.NURSE ---
patient persists in irriatable behavior, laid down on ground and once vital signs are obtained patient slow to relenquish o2 sat monitor
[2021-07-30 09:22] VITALS: BP 136/56; PULSE 90; RESP 16; O2SAT 97
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
[2021-07-30] MEDS: LORazepam 1 MG TABLET 2 MG PO (09:45)
--- NOTE | 2021-07-30 10:50 | MHC.CARE ---
0938 - Contacted detention as pt is ready for discharge. Jail stated that they wanted to have a Safety meeting prior to his return to plan a safe return to the detention. Spoke with the detention director who stated that she wanted a re assessment by crisis prior to his return. She fruther stated that she could not give me an accurate time in which the safety meeting would be held as We are still trying to pull the staff together . CARE patient appointment coordinator advised of this and will be taking the lead on facilitating pt's return to his detention.
--- NOTE | 2021-07-30 10:53 | MHC.CARE ---
5717 - Spoke with pt, advised him we were working on getting him discharged, it could take time, and we need him to do his part in remaining calm. Spoke with pt's ED provider and advised her of the situation with pt. Pt has been calm, he did have a period of agitation, wanting to return home but was given medication.
--- NOTE | 2021-07-30 12:42 | PC.NURSE ---
patient awoke from nap, rapped on glass times one, staff had lsy2snw him how he felt and if we could get him anything and patient near immediately pulled down glass window patient had previously been eyeing earlier in day. this glass incident occurred 1232pm
[2021-07-30] MEDS: OLANZapine 10 MG VIAL IM (13:09)
--- NOTE | 2021-07-30 13:24 | MHC.CARE ---
1230 - CARE Team spoke with pt along with Security who was on stand by and intervening with pt as he was pulling a glass panel free from its housing in the pod. This glass panel was between the nurses station and the common area room where the telephone is located. Pt was deescalated to the point where he released the glass panel, which was broken and spider webbed. Pt had small glass shards on his clothing and in his hair. His hands were bleeding slightly. Pt was escorted to a chair by CARE Team and Security where he sat and allowed medical staff to render aid.
--- NOTE | 2021-07-30 15:18 | MHC.CARE ---
CARE Team speaks with director of pt's care home Alessandra, who reports that pt will be picked up by 1600.
== END 2021-07-30 16:33 | disposition home or self-care (01) ==
PROVIDERS: Emergency Provider Emergency Medicine
DX: F14.10 Cocaine abuse, uncomplicated (principal); F89 Unspecified disorder of psychological development; R45.1 Restlessness and agitation; R45.6 Violent behavior; Z20.822 Contact with and (suspected) exposure to COVID-19; Z78.1 Physical restraint status; Q98.8 Other specified sex chromosome abnormalities, male phenotype; F17.210 Nicotine dependence, cigarettes, uncomplicated; F12.90 Cannabis use, unspecified, uncomplicated; Z86.59 Personal history of other mental and behavioral disorders; Z79.899 Other long term (current) drug therapy
CPT/HCPCS: 36415; 80048; 80076; 80164; 85025; 87635; 96372; 99284; 99285; J2060

== ENCOUNTER 2021-08-07 08:12 | Outpatient (REF) | payer MEDICAID, SELFPAY ==
--- NOTE | 2021-08-07 10:03 | EEG_ITS ---
This is a 16-channel EEG with an EKG lead. The patient is reported awake and drowsy during the tracing. Background EEG rhythm during wakefulness is low amplitude fast with no obvious asymmetry or paroxysmal tendency. The patient transitioned into drowsiness with no significant abnormality. Photic stimulation does not produce any significant abnormality. Hyperventilation is not performed. Cardiac lead does not reveal any significant abnormality. No sharp wave spikes or paroxysmal tendency noted. IMPRESSION: Unremarkable EEG. MD YAJAIRA Samson/FROILAN / [id number]
== END 2021-08-07 08:13 | disposition home or self-care (01) ==
LOC: HO.NEURO 08:12
PROVIDERS: Visit Provider Nurse Practitioner Family
DX: F44.5 Conversion disorder with seizures or convulsions (principal)
CPT/HCPCS: 95816

== ENCOUNTER 2021-09-14 19:29 | Emergency (ER) | payer MEDICAID, SELFPAY ==
--- NOTE | ~2021-09-14 | CT_ITS ---
EXAMINATION: CT HEAD WITHOUT CONTRAST CT CERVICAL SPINE WITHOUT CONTRAST CLINICAL INFORMATION: Fall. COMPARISON: CT head dated 12/29/2020. TECHNIQUE: Contiguous axial imaging was performed from the skull base to vertex without intravenous administration of contrast. Contiguous axial CT images of the cervical spine were obtained without contrast. Sagittal and coronal reformats were provided and reviewed. This CT examination was performed using dose optimization techniques as appropriate, variously including the following: *Automated exposure control. *Adjustment of mA and/or kV according to patient size (this includes techniques or standardized protocols for targeted exams where dose is matched to indication/reason for exam; i.e. extremities or head). *Use of iterative reconstruction technique. DLP: 2139 mGy-cm FINDINGS: HEAD: There is no evidence of acute intracranial hemorrhage or territorial infarction. No abnormal mass effect or midline shift is seen. Akbj-ss-cqazk matter differentiation is well preserved. Redemonstration of a pericallosal lipoma, unchanged. No extra-axial fluid collections are identified. The ventricles are normal in size. There is no abnormal attenuation within the brain parenchyma. Focal soft tissue swelling overlying the right frontal calvarium. No calvarial fracture. The mastoid air cells and visualized portions of the paranasal sinuses are well aerated. CERVICAL SPINE: Normal vertebral body alignment. The normal cervical lordosis is maintained. No acute fracture or subluxation. No loss of vertebral body or intervertebral disc height. Unremarkable facet joints. No lytic or blastic osseous lesion. Unremarkable prevertebral soft tissues. No abnormal soft tissue mass or fluid collection. Thyroid within normal limits. Visualized lung apices are clear. No significant central canal or neural foraminal stenosis. CT/CT cervical spine wo con IMPRESSION: HEAD: No acute intracranial hemorrhage or mass effect. CERVICAL SPINE: No acute fracture or subluxation.
[2021-09-14 19:49] VITALS: BP 148/73; PULSE 93; RESP 16; TEMP 37.6; O2SAT 97; BMI 42.3
--- NOTE | 2021-09-14 20:10 | ED.FALL ---
HPI - Fall General Chief Complaint: Fall <Devante Goodman MD - Last Filed: 09/15/21 16:13> Stated Complaint: fall <Devante Goodman MD - Last Filed: 09/15/21 16:13> Time Seen by Provider: 09/14/21 19:55 <Devante Goodman MD - Last Filed: 09/15/21 16:13> Source: patient <Devante Goodman MD - Last Filed: 09/15/21 16:13> Mode of arrival: ambulatory <Devante Goodman MD - Last Filed: 09/15/21 16:13> Limitations: no limitations <Devante Goodman MD - Last Filed: 09/15/21 16:13> History of Present Illness HPI Narrative: 20-year-old male came in by ambulance for evaluation after had a mechanical fall. Patient tripped and fell backward, hitting the back of his head, lost consciousness, bystander called EMS, patient is complaining of headache and neck pain. No other complaints at this point. <Devante Goodman MD - Last Filed: 09/15/21 16:13> Related Data Home Medications: Home Medications Medication Instructions Recorded Confirmed blood pressure monitor (Blood #1 ea 11/13/20 07/07/21 Pressure Kit) clindamycin phosphate 1 % topical 1 appl TOPICAL 2XW 11/13/20 07/29/21 gel melatonin 3 mg capsule 3 mg PO BEDTIME 11/13/20 07/29/21 quetiapine 200 mg tablet 400 mg PO BEDTIME 01/08/21 07/29/21 quetiapine 50 mg tablet (Seroquel) 50 mg PO DAILY PRN 01/08/21 07/29/21 quetiapine 50 mg tablet (Seroquel) 50 mg PO DAILY@1600 01/08/21 07/29/21 divalproex 500 mg tablet,delayed 1,000 mg PO BID tab 04/08/21 07/29/21 release chlorhexidine gluconate 0.12 % 15 ml PO BEDTIME 07/29/21 07/29/21 mouthwash docosahexaenoic acid (dha)-epa 1 cap PO BID 07/29/21 07/29/21 capsule fluoride (sodium) 1.1 % dental 1 appl DENTAL BEDTIME 07/29/21 07/29/21 cream (Denta 5000 Plus) guanfacine 2 mg tablet 2 mg PO DAILY 07/29/21 07/29/21 guanfacine 4 mg tablet,extended 1 tab PO BEDTIME 07/29/21 07/29/21 release 24 hr metformin 500 mg tablet 1 tab PO BID 07/29/21 07/29/21 phenylephrine-acetaminophen 5 1 tab PO Q6H PRN 07/29/21 07/29/21 mg-325 mg tablet Previous Rx's Medication Instructions Recorded docusate sodium 100 mg capsule 100 mg PO BID #60 cap 02/26/21 (Colace) polyethylene glycol 3350 17 17 g PO BID 30 Days #1020 g 07/07/21 gram/dose oral powder (Miralax) acetaminophen 325 mg tablet 650 mg PO Q6H PRN 30 Days #120 tab 08/13/21 prednisone 20 mg tablet 20 mg PO .COMPLEX #18 tab 08/13/21 <Devante Goodman MD - Last Filed: 09/15/21 16:13> Allergies/Adverse Reactions: Allergies Allergy/AdvReac Type Severity Reaction Status Date / Time methylphenidate Allergy Unknown UNKNOWN Verified 08/13/21 11:43 [From RITALIN] shrimp [SHRIMP] Allergy Unknown HIVES Verified 08/13/21 11:43 haloperidol [From Haldol] Allergy Unknown Verified 08/13/21 11:43 <Devante Goodman MD - Last Filed: 09/15/21 16:13> Review of Systems Review of Systems: All other systems are reviewed and are negative Constitutional: Reports as per HPI and Reports no additional constitutional complaints Eyes: Reports as per HPI and Reports no additional eye complaints Reports system reviewed and no additional complaints, except as documented Cardiovascular: Reports as per HPI and Reports no additional cardiovascular complaints Respiratory: Reports as per HPI and Reports no additional respiratory complaints Gastrointestinal: Reports as per HPI and Reports no additional gastrointestinal complaints Genitourinary: Reports no additional female genitourinary complaints Musculoskeletal: Reports no additional musculoskeletal complaints Skin/Breast: Reports system reviewed and no additional complaints, except as docu Psychiatric: Reports no additional psychiatric complaints Endocrine: Reports no additional endocrine complaints Hematologic/Lymphatic: Reports no additional hematologic/lymphatic complaints Allergic/Immunologic: Reports no additional allergic/immunologic complaints Reports system reviewed and no additional complaints, except as documented and Reports Abnormal speech present <Devante Goodman MD - Last Filed: 09/15/21 16:13> [facility] Past Medical History Medical History: Medical History Chronic abdominal pain Developmental disability Seizures XXYY syndrome <Devante Goodman MD - Last Filed: 09/15/21 16:13> Surgical History: Surgical History History of testicular surgery <Devante Goodman MD - Last Filed: 09/15/21 16:13> Family History Family History: Family History Father No problems noted. Mother Hypertension Diabetes Other History of brain cancer <Devante Goodman MD - Last Filed: 09/15/21 16:13> Social History Social History: Social History Housing: Assisted Living Facility Alcohol intake: never Patient Tobacco Use Status: Current everyday Tobacco user Tobacco use type: Cigarette Cigarettes Per Day: 3 Years Smoked: 16 years old e-Cigarette/Vaping Use: Currently Using Substance Use Type: Crack/Cocaine and Marijuana Advance Directives: No Advance Directives Information Provided: No service: No Current occupational status: disabled <Devante Goodman MD - Last Filed: 09/15/21 16:13> Physical Exam Vital Signs: Vital Signs: Last Vital Signs Temp 99.1 F 09/15/21 00:41 Pulse 83 09/15/21 06:30 Resp 16 09/15/21 06:30 BP 121/65 09/15/21 06:30 Pulse Ox 96 09/15/21 06:30 Body Mass Index 42.3 Vital signs have been reviewed as appeared to be correct. Blood pressure normal. Heart rate normal. Respiration rate normal. Temperature normal. Oxygen saturation normal. <Devante Goodman MD - Last Filed: 09/15/21 16:13> Vital Signs: Last Vital Signs Temp 99.1 F 09/15/21 00:41 Pulse 83 09/15/21 06:30 Resp 16 09/15/21 06:30 BP 121/65 09/15/21 06:30 Pulse Ox 96 09/15/21 06:30 Body Mass Index 42.3 <Jada Hoffmann DO - Last Filed: 09/15/21 07:50> Appearance: Alert. Oriented X3. No acute distress. Head: Normal external exam. Normocephalic. Atraumatic. No Gottlieb signs noted. No raccoon eyes noted Eyes: PERRLA. EOMI. Conjunctiva and sclera normal. Eyelids normal. ENT: TM's Normal. Pharynx normal. Uvula midline. Moist mucous membranes. No trismus noted. No drooling noted. No muffled voice noted. Neck: Normal inspection. Neck supple. Neck tenderness, no step-off, no deformity. No adenopathy. Thyroid Normal. No meningeal signs. No neck mass noted. CVS: Normal heart rate and rhythm. Heart sound normal. No murmurs noted. Pulses normal throughout. Respiratory: No respiratory distress. Painless inspiration. Breath sounds normal. No wheezes/rales/rhonchi noted. Chest nontender. No accessory muscle usage noted or decreased air movement noted. Abdomen: Soft and nontender. Bowel sounds normal in all 4 quadrants. No distention noted. No organomegaly noted. No visible injury noted. Back: No CVA tenderness. Full range of motion noted. Skin: Skin warm and dry. Normal skin color. Normal skin turgor. No rashes/lesions/lacerations noted. Extremities: No lower extremity edema. Extremities exhibit normal range of motion. Extremities nontender. Neuro: Oriented X 3. Cranial nerve exam: II-XII are grossly intact No motor deficit. No sensory deficit. Reflexes normal. <Devante Goodman MD - Last Filed: 09/15/21 16:13> Course Course Course Narrative: Assessment and plan. 20-year-old male status post mechanical fall complaining of head and neck injury. Intact neuro exam, head/C-spine CT are unremarkable. Will discharge to follow-up with PCP. Use NSAIDs for pain. <Devante Goodman MD - Last Filed: 09/15/21 16:13> MDM - Fall Lab Data Labs: Lab Results 09/15/21 Range/Units 01:43 COVID-19 (JULISSA) Negative (Negative) COVID-19 Clin Com See Note <Devante Goodman MD - Last Filed: 09/15/21 16:13> Lab Results 09/15/21 Range/Units 01:43 COVID-19 (JULISSA) Negative (Negative) COVID-19 Clin Com See Note <Jada Hoffmann DO - Last Filed: 09/15/21 07:50> Discharge Plan Discharge Clinical Impression: Neck sprain Closed head injury Qualifiers: Encounter type: initial encounter Qualified Code(s): S09.90XA - Unspecified injury of head, initial encounter <Devante Goodman MD - Last Filed: 09/15/21 16:13> Patient Disposition: Home, Self-Care <Devante Goodman MD - Last Filed: 09/15/21 16:13> Instructions: Head Injury (ED) <Devante Goodman MD - Last Filed: 09/15/21 16:13> Prescriptions: No Action docusate sodium [Colace] 100 mg capsule 100 mg PO BID Qty: 60 RF: 2 polyethylene glycol 3350 [Miralax] 17 gram/dose powder 17 g PO BID 30 Days Qty: 1020 RF: 2 acetaminophen 325 mg tablet 650 mg PO Q6H PRN (Reason: pain) 30 Days Qty: 120 RF: 0 metformin 500 mg tablet 1 tab PO BID RF: 0 guanfacine 2 mg tablet 2 mg PO DAILY RF: 0 Acetaminophen Congestion-Pain 5-325 mg Tablet 1 tab PO Q6H PRN (Reason: Congestion/PAIN) RF: 0 chlorhexidine gluconate 0.12 % mouthwash 15 ml PO BEDTIME RF: 0 guanfacine 4 mg tablet extended release 24 hr 1 tab PO BEDTIME RF: 0 Fish Oil (with DHA-EPA) Capsule 1 cap PO BID RF: 0 fluoride (sodium) [Denta 5000 Plus] 1.1 % Cream 1 appl DENTAL BEDTIME RF: 0 quetiapine [Seroquel] 50 mg Tablet 50 mg PO DAILY PRN (Reason: Anxiety) RF: 0 quetiapine [Seroquel] 50 mg Tablet 50 mg PO DAILY@1600 RF: 0 quetiapine 200 mg Tablet 400 mg PO BEDTIME RF: 0 prednisone 20 mg tablet 20 mg PO .COMPLEX Qty: 18 RF: 0 clindamycin phosphate 1 % gel 1 appl topical 2XW RF: 0 melatonin 3 mg capsule 3 mg PO BEDTIME RF: 0 (DME) blood pressure monitor [Blood Pressure Kit] Kit See Rx Instructions .ROUTE .MEDSUPPLY Qty: 1 RF: 0 divalproex 500 mg tablet,delayed release (DR/EC) 1,000 mg PO BID RF: 0 <Devante Goodman MD - Last Filed: 09/15/21 16:13> Referrals: Physician,Unknown J [Primary Care Provider] - 2 days <Devante Goodman MD - Last Filed: 09/15/21 16:13> Interventions: ED Discharge Assessment Last Done: 09/15/21 08:19 <Devante Goodman MD - Last Filed: 09/15/21 16:13> Discharge Date/Time: 09/15/21 08:30 <Devante Goodman MD - Last Filed: 09/15/21 16:13>
[2021-09-14] MEDS: oxyCODONE HCl Immed Release 5 MG TABLET PO (20:34)
--- NOTE | 2021-09-14 21:34 | PC.NURSE ---
This RN calling all contacts for transportation home. One line stating wrong number, other line busy.
--- NOTE | 2021-09-14 21:41 | PC.NURSE ---
This RN contacting mom [phone], line busy. This RN contacting dad, , line busy. Pt unable to provide any additional contact information. Pt states there is no phone at the custodial at this time.
--- NOTE | 2021-09-14 21:43 | PC.NURSE ---
Grandmother [phone], also unavailable at this time.
--- NOTE | 2021-09-14 22:34 | PC.NURSE ---
This RN contacting Krystina from the Care Team to assist in arranging transportation back to senior living.
--- NOTE | 2021-09-14 22:55 | PC.NURSE ---
Care Home Director [phone] This RN contacting [facility] for transport home. Per [facility], they are requesting inpatient psych for pt as he has been off his meds for 2 days and has increased aggression. Per [facility]ri, the nursing home is requesting him to be evaluated by [facility] prior to return to the nursing home as he eloped from the nursing home. This RN expressing concern to [facility] about a breakdown in communication as pt has been here for 3 hours, is now medically cleared, yet unable to return to nursing home as staff was unaware of this request. animal control specialist aware, Krystina from Care Team called by this RN. Plan for Krystina to reach out to [facility]. Provider aware.
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
--- NOTE | 2021-09-15 00:34 | PC.NURSE ---
This nurse received call from [facility] stating that PT would be seen soon for crisis consult.
[2021-09-15 00:41] VITALS: BP 122/75; PULSE 91; RESP 16; TEMP 37.3; O2SAT 95
[2021-09-15 01:06] VITALS: BP 122/75; PULSE 86; RESP 20; O2SAT 96
--- NOTE | 2021-09-15 01:39 | PC.NURSE ---
PT requesting COVID swab and reporting sore throat. Asked to have his temp checked, but found to have no fever.
[2021-09-15 02:22] LABS: COVID-19 Test Negative (Negative)
--- NOTE | 2021-09-15 03:00 | PC.NURSE ---
[facility] at bedside for eval.
--- NOTE | 2021-09-15 03:26 | PC.NURSE ---
[facility] cleared PT for crisis and subsequent return to care home. Plan is to contact care home staff in the morning and coordinate strip picker.
--- NOTE | 2021-09-15 05:57 | PC.NURSE ---
This RN calling Claudette to facilitate transport home, this RN unable to reach [facility] and the mailbox was full.
--- NOTE | 2021-09-15 06:19 | PC.NURSE ---
This nurse called Claudette, the warehouse trainer of the PT's halfway to inform that the PT is ready to be picked up. This individual stated that there was no staff available to pick him up until 0900. This nurse advised her that the PT cannot be held here against his will and would have to wait in the waiting room for a ride.
[2021-09-15 06:30] VITALS: BP 121/65; PULSE 83; RESP 16; O2SAT 96
--- NOTE | 2021-09-15 07:05 | PC.NURSE ---
assumed care of this pt at 0700 - awaiting ride to [facility] via lyft. pt eating breakfast.
--- NOTE | 2021-09-15 07:56 | PC.NURSE ---
pt irritable about still being in the hospital. Adryan from CARE team attempting contact with pts shelter, who are unable to get pt until 9am . pt reporting hes just going to walk out . informed Adryan and shelter of this. pt is medically and BHN cleared
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
== END 2021-09-15 08:30 | disposition home or self-care (01) ==
PROVIDERS: Nurse Practitioner Family; Emergency Provider Emergency Medicine
DX: S13.9XXA Sprain of joints and ligaments of unspecified parts of neck, initial encounter (principal); S09.90XA Unspecified injury of head, initial encounter; R55 Syncope and collapse; F14.90 Cocaine use, unspecified, uncomplicated; F12.90 Cannabis use, unspecified, uncomplicated; F17.210 Nicotine dependence, cigarettes, uncomplicated; W01.0XXA Fall on same level from slipping, tripping and stumbling without subsequent striking against object, initial encounter; Y93.9 Activity, unspecified; Y92.9 Unspecified place or not applicable; Y99.9 Unspecified external cause status; Z20.822 Contact with and (suspected) exposure to COVID-19; Z79.899 Other long term (current) drug therapy; Z71.6 Tobacco abuse counseling
CPT/HCPCS: 36415; 70450; 72125; 87635; 99284

== ENCOUNTER 2021-09-16 11:30 | Emergency (ER) | payer MEDICAID, SELFPAY ==
--- NOTE | ~2021-09-16 | XR_ITS ---
EXAMINATION: XR LUMBOSACRAL SPINE CLINICAL INFORMATION: Back pain COMPARISON: CT abdomen pelvis 11/11/2020 TECHNIQUE: 4 views lumbosacral spine FINDINGS: The vertebral bodies and posterior elements are normal. The disc spaces are preserved and the vertebral alignment is normal. The paraspinal soft tissues are normal. XR/XR lumbar spine 2-3V IMPRESSION: Unremarkable examination.
[2021-09-16 11:45] VITALS: BP 138/92; PULSE 87; PULSE 90; RESP 18; TEMP 37.1; O2SAT 96; BMI 43.8
[2021-09-16] MEDS: LORazepam 2 MG/ML VIAL IM (11:52)
[2021-09-16] MEDS: Haloperidol Lactate 5 MG/ML VIAL 10 MG IM (11:52)
[2021-09-16] MEDS: Acetaminophen 325 MG TABLET 975 MG PO (11:55)
--- NOTE | 2021-09-16 12:03 | PC.NURSE ---
pt asking for haldol for agitation following triage, pt w well known hx of agression. pt calm and cooperative w medication admin following ed provider eval. will await medication effect before attempting pt manager of change, pt initially resistant to manager of change. security aware of pt.
--- NOTE | 2021-09-16 12:16 | PC.NURSE ---
pt ambulated to bathroom, calm and cooperative w job change crew member to crisis attire.
--- NOTE | 2021-09-16 12:17 | PC.NURSE ---
pt showing no signs of postictal behaviors, no evidence of biting tongue/inside mouth, no urinary or bm incontinence, alert and oriented, neuros intact.
--- NOTE | 2021-09-16 12:30 | PC.NURSE ---
pt brought in by ambulance from a skilled nursing for evaluation of SI. per ems pt tried to hurt himself with a piece of sharp wood. he also threatened skilled nursing staff The patient stated that he wanted to kill himself but did not have a specific plan in place. Pt was agitated when he arrived to the ed. He stated that when he feels this way he gets Haldol and Ativan and it resolves his agitation. Pt was given IM Ativan and Haldol in the ed which was effective. Pt changed over by security. Pt resting quietly, no agitation noted. One to one sitter at his bedside.
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
[2021-09-16 13:21] VITALS: BP 92/51; PULSE 85; TEMP 36.6; O2SAT 95
--- NOTE | 2021-09-16 16:06 | ED.PSYCH ---
HPI - Psych General Chief Complaint: Psychiatric Symptoms Stated Complaint: SI,SELF HARM THREAT Time Seen by Provider: 09/16/21 11:42 Source: patient and EMS Mode of arrival: EMS Limitations: no limitations History of Present Illness HPI Narrative: 20-year-old male with history of development delay who lives in a detention and he transferred to the emergency department for evaluation of suicidal ideation and threatening behavior towards the staff. Apparently, the patient tried to hurt himself with a sharp piece of wood. Patient then made suicidal statements and threatened the detention staff. The patient told me that he wanted to kill himself but did not have a specific plan. In route, the patient was shaking appear to be altered, the patient has a history non electrical seizures and he has had similar shaking episodes in the past. On presentation to the emergency department the patient was agitated, he states that when he feels this way an injection of Haldol and Ativan often resolves his agitation. Related Data Home Medications Medication Instructions Recorded Confirmed blood pressure monitor (Blood #1 ea 11/13/20 07/07/21 Pressure Kit) clindamycin phosphate 1 % topical 1 appl TOPICAL 2XW 11/13/20 07/29/21 gel melatonin 3 mg capsule 3 mg PO BEDTIME 11/13/20 07/29/21 quetiapine 200 mg tablet 400 mg PO BEDTIME 01/08/21 07/29/21 quetiapine 50 mg tablet (Seroquel) 50 mg PO DAILY PRN 01/08/21 07/29/21 quetiapine 50 mg tablet (Seroquel) 50 mg PO DAILY@1600 01/08/21 07/29/21 divalproex 500 mg tablet,delayed 1,000 mg PO BID tab 04/08/21 07/29/21 release chlorhexidine gluconate 0.12 % 15 ml PO BEDTIME 07/29/21 07/29/21 mouthwash docosahexaenoic acid (dha)-epa 1 cap PO BID 07/29/21 07/29/21 capsule fluoride (sodium) 1.1 % dental 1 appl DENTAL BEDTIME 07/29/21 07/29/21 cream (Denta 5000 Plus) guanfacine 2 mg tablet 2 mg PO DAILY 07/29/21 07/29/21 guanfacine 4 mg tablet,extended 1 tab PO BEDTIME 07/29/21 07/29/21 release 24 hr metformin 500 mg tablet 1 tab PO BID 07/29/21 07/29/21 phenylephrine-acetaminophen 5 1 tab PO Q6H PRN 07/29/21 07/29/21 mg-325 mg tablet Previous Rx's Medication Instructions Recorded docusate sodium 100 mg capsule 100 mg PO BID #60 cap 02/26/21 (Colace) polyethylene glycol 3350 17 17 g PO BID 30 Days #1020 g 07/07/21 gram/dose oral powder (Miralax) acetaminophen 325 mg tablet 650 mg PO Q6H PRN 30 Days #120 tab 08/13/21 prednisone 20 mg tablet 20 mg PO .COMPLEX #18 tab 08/13/21 Allergies Allergy/AdvReac Type Severity Reaction Status Date / Time methylphenidate Allergy Unknown UNKNOWN Verified 08/13/21 11:43 [From RITALIN] shrimp [SHRIMP] Allergy Unknown HIVES Verified 08/13/21 11:43 haloperidol [From Haldol] Allergy Unknown Verified 08/13/21 11:43 Review of Systems Review of Systems: Yes all other systems are reviewed and are negative FOR[facility]LY [facility], [facility] Past Medical History Medical History Chronic abdominal pain Developmental disability Seizures XXYY syndrome Surgical History History of testicular surgery Family History Family History Father No problems noted. Mother Hypertension Diabetes Other History of brain cancer Social History Social History Housing: Assisted Living Facility Alcohol intake: never Patient Tobacco Use Status: Current everyday Tobacco user Tobacco use type: Cigarette Cigarettes Per Day: 3 Years Smoked: 16 years old e-Cigarette/Vaping Use: Currently Using Use of substances other than those prescribed or required for medical reasons: No Substance Use Type: Crack/Cocaine and Marijuana Advance Directives: No Advance Directives Information Provided: No service: No Current occupational status: disabled Physical Exam Vital Signs: Vital Signs: Last Vital Signs Temp 97.9 F 09/16/21 13:21 Pulse 85 09/16/21 13:21 Resp 18 09/16/21 11:45 BP 92/51 L 09/16/21 13:21 Pulse Ox 95 09/16/21 13:21 Body Mass Index 43.8 Const: Other: Awake, alert male, appears to be anxious, he is tremulous, he is cooperative and does not appear to be in distress HENMT: Head: Yes normal to inspection, Yes normocephalic and Yes atraumatic Ears: external ears normal General nose exam: Normal external nose present Face and sinus: Yes normal facial exam Mouth: Normal oral and palatal mucosa present Throat: Yes posterior oropharynx normal Eyes: General: appearance normal, both eyes and all related structures Pupils: Equal, round and reactive pupils present Neck: Neck: Yes normal visual inspection, Yes no lymphadenopathy, Yes trachea midline and Yes supple Chest: Chest palpation & inspection: normal inspection of the chest and normal palpation of entire chest wall Resp: Effort & Inspection: normal respiratory effort and able to speak in complete sentences Auscultation: clear to auscultation bilaterally Cardio: Rate: regular rate Rhythm: regular rhythm Heart sounds: S1 normal heart sound present, S2 normal heart sound present and no murmurs GI: Inspection: Yes normal to inspection Palpation (GI): Soft to palpation, nontender and no guarding Auscultation: normal bowel sounds : General: Yes no CVA tenderness Back/Spine/Pelvis: Back: no CVA tenderness Skin: General skin exam: no rashes or lesions noted Neuro: Cranial nerves: Yes CN's II-XII intact bilaterally and Yes Equal, round and reactive pupils present Cognition (Neuro): normal cognition Motor exam (neuro): 5/5 motor strength present throughout Extrem: General: Yes normal to inspection Psych: Appearance: grossly normal Speech and movement: Normal speech and movement present Affect: Anxious affect present Attitude: cooperative Thought process: Normal thought process present Thought content: Suicidality present and no homicidality Course Course Course Narrative: 20-year-old male with developmental delay who was in agreement on and presents emergency department for evaluation suicidal ideation and threatening behavior. In the emergency department, he appeared to be anxious and tremulous but otherwise was cooperative. Vital signs revealed an elevated blood pressure of 138/92 otherwise were unremarkable. Patient has healed examination was unremarkable as well. The patient was medicated with Haldol 10 mg IM and Ativan 2 mg IM. The patient will be transferred to the psychiatric pod for further treatment. The patient was in the emergency department yesterday, had a negative COVID test. I will order a urine tox screen on the patient. 1612: The patient is resting comfortably at the end of my shift. Patient's care will be turned over my colleague, Dr. Pillai. Discharge Plan Discharge Clinical Impression: Suicidal ideation, Threatening behavior Prescriptions: No Action docusate sodium [Colace] 100 mg capsule 100 mg PO BID Qty: 60 RF: 2 polyethylene glycol 3350 [Miralax] 17 gram/dose powder 17 g PO BID 30 Days Qty: 1020 RF: 2 acetaminophen 325 mg tablet 650 mg PO Q6H PRN (Reason: pain) 30 Days Qty: 120 RF: 0 metformin 500 mg tablet 1 tab PO BID RF: 0 guanfacine 2 mg tablet 2 mg PO DAILY RF: 0 Acetaminophen Congestion-Pain 5-325 mg Tablet 1 tab PO Q6H PRN (Reason: Congestion/PAIN) RF: 0 chlorhexidine gluconate 0.12 % mouthwash 15 ml PO BEDTIME RF: 0 guanfacine 4 mg tablet extended release 24 hr 1 tab PO BEDTIME RF: 0 Fish Oil (with DHA-EPA) Capsule 1 cap PO BID RF: 0 fluoride (sodium) [Denta 5000 Plus] 1.1 % Cream 1 appl DENTAL BEDTIME RF: 0 quetiapine [Seroquel] 50 mg Tablet 50 mg PO DAILY PRN (Reason: Anxiety) RF: 0 quetiapine [Seroquel] 50 mg Tablet 50 mg PO DAILY@1600 RF: 0 quetiapine 200 mg Tablet 400 mg PO BEDTIME RF: 0 prednisone 20 mg tablet 20 mg PO .COMPLEX Qty: 18 RF: 0 clindamycin phosphate 1 % gel 1 appl topical 2XW RF: 0 melatonin 3 mg capsule 3 mg PO BEDTIME RF: 0 (DME) blood pressure monitor [Blood Pressure Kit] Kit See Rx Instructions .ROUTE .MEDSUPPLY Qty: 1 RF: 0 divalproex 500 mg tablet,delayed release (DR/EC) 1,000 mg PO BID RF: 0
--- NOTE | 2021-09-16 18:13 | PC.NURSE ---
Pt resting quietly, no agitation noted. One to one sitter remains at bedside. No complaints voiced.
--- NOTE | 2021-09-16 18:30 | PC.NURSE ---
Pt transferred over the main ED without issue. Pt currently eating dinner in his room, no complaints at this time.
--- NOTE | 2021-09-16 19:08 | MHC.CARE ---
Pt was evaluated by N in the community and is an Inpatient bedsearch.
[2021-09-16 19:30] LABS: COVID-19 Test Negative (Negative); IDNOW Serial# 9DD0AD1C
[2021-09-16 23:30] VITALS: RESP 16
[2021-09-16] MEDS: Haloperidol Lactate 5 MG/ML VIAL IM (23:30)
[2021-09-17] VITALS: RESP 16
[2021-09-17 00:15] VITALS: RESP 16
[2021-09-17 00:30] VITALS: RESP 16
--- NOTE | 2021-09-17 05:50 | PC.NURSE ---
Patient slept through the night, no distress observed/reported, X-ray of lower back done, came out negative, patient made aware, VSS, disposition per [facility] is section 12 Inpatient Bed Search, patient reported he is feeling better, no suicidal thought and wants to go back to detention, will continue to monitor.
[2021-09-17 06:09] VITALS: BP 122/70; PULSE 74; RESP 16; TEMP 36.8; O2SAT 99
[2021-09-17] MEDS: Divalproex Sodium 500 MG TABLET.DR 1000 MG PO (08:38)
[2021-09-17] MEDS: polyethylene glycoL 3350 17 GM POWD.PACK PO (08:38)
[2021-09-17] MEDS: Docusate Sodium 100 MG CAPSULE PO (08:38)
[2021-09-17] MEDS: metFORMIN HCl 500 MG TABLET PO (08:38)
[2021-09-17] MEDS: QUEtiapine Fumarate 50 MG TABLET PO ×2 (11:05→15:54)
[2021-09-17] MEDS: chlorproMAZINE HCl 25 MG TABLET 50 MG PO (14:59)
--- NOTE | 2021-09-17 15:25 | PC.NURSE ---
Addendum entered by Virginia Begum 09/17/21 15:38: continuation of note. Pt was able to calmly return to room and spoke with mom calmly on phone. Original Note: Pt was told by Kiera from Care TEam that he will be transferred to [facility] this evening. Following news pt became upset, security was called to POD. THis RN arrived as patient was in common area near [facility]. Pt began posturing with fists raised, gently touching glass window with fists. Was encouraged to return to room to avoid poor decision making regarding physical property.
[2021-09-17 16:01] VITALS: BP 152/90; PULSE 100; RESP 17; TEMP 36.9; O2SAT 96
--- NOTE | 2021-09-17 16:01 | PC.NURSE ---
Pt is resting, side lying in room. speech is clear. has fine tremor in upper extremities and is starting to calm down . plans to rest until transportation arrives. skin PWD AxOx3.
[2021-09-17] MEDS: LORazepam 1 MG TABLET 2 MG PO (16:37)
--- NOTE | 2021-09-17 16:50 | PC.NURSE ---
RN TO RN WITH MONIKA CALLE AT [facility] IN [place], [place]. PT LEFT CALMLY WITH EMS AFTER TAKING PO ATIVAN TO TAKE THE EDGE OFF FOR THE RIDE
== END 2021-09-17 17:04 ==
PROVIDERS: Emergency Medicine Emergency Medical Services; Emergency Provider Emergency Medicine Emergency Medical Services
DX: R45.851 Suicidal ideations (principal); R45.6 Violent behavior; R62.50 Unspecified lack of expected normal physiological development in childhood; Z20.822 Contact with and (suspected) exposure to COVID-19
CPT/HCPCS: 36415; 72100; 87635; 96372; 99285; J2060

== ENCOUNTER 2021-10-13 06:56 | Outpatient (REF) | payer MEDICAID, SELFPAY ==
[2021-10-13 11:46] LABS: Appearance Urine CLEAR; Color Urine YELLOW; Glucose Urine UA NEG (NEG); Leukocyte Esterase Urine NEG (NEG); Nitrite Urine NEG (NEG); Specific Gravity - Urine >= 1.030 (1.005-1.025); Urine Blood NEG (NEG); Urine Ketones NEG (NEG); Urine Protein NEG (NEG-TRACE)
[2021-10-13 12:31] LABS: TSH reflex Free T4 7.33 uIU/mL (0.32-4.0)
[2021-10-13 12:33] LABS: Alanine Aminotransferase 32 U/L (0-40); Alkaline Phosphatase 87 U/L (39-117); Anion Gap 13 (12-20); Aspartate Amino Transferase 30 U/L (5-37); Bilirubin Total 0.3 mg/dL (0.0-1.0); Blood Urea Nitrogen 15 mg/dL (9-16); Calcium 9.2 mg/dL (8.4-10.2); Carbon Dioxide 27 mmol/L (22-29); Chloride 99 mmol/L (96-108); Cholesterol 183 mg/dL; Estimated Glomerular Filt Rate > 60; Glucose Fasting 88 mg/dL (60-99); HDL Cholesterol 20 mg/dL; LDL Cholesterol Calculated 110 mg/dl; Potassium 4.3 mmol/L (3.3-5.1); Sodium 135 mmol/L (135-145); Total Protein 7.6 g/dL (6.5-8.0); Triglycerides 267 mg/dL
== END 2021-10-13 06:57 | disposition home or self-care (01) ==
LOC: HO.HMGCLDS 06:56
PROVIDERS: PCP Nurse Practitioner Family; Visit Provider Nurse Practitioner Family
DX: R79.89 Other specified abnormal findings of blood chemistry (principal)
CPT/HCPCS: 36415; 80053; 80061; 81003; 84439; 84443

== ENCOUNTER 2021-10-13 14:02 | Emergency (ER) | payer MEDICAID, SELFPAY ==
--- NOTE | 2021-10-13 | ECG_ITS ---
Test Reason : CHEST PAIN Blood Pressure : / mmHG Vent. Rate : 095 BPM Atrial Rate : 095 BPM P-R Int : 142 ms QRS Dur : 082 ms QT Int : 344 ms P-R-T Axes : 033 015 012 degrees QTc Int : 432 ms Normal sinus rhythm Normal ECG When compared with ECG of 21-FEB-2021 08:52, No significant change was found Referred By: Rosa Page Electronically Signed By:MAYKEL ANAYA MD
--- NOTE | 2021-10-13 14:17 | ED_ITS ---
HPI - Chest Pain General Chief Complaint: Chest Pain <KELSY Macdonald Last Filed: 10/13/21 15:52> Stated Complaint: chest pain <KELSY Macdonald Last Filed: 10/13/21 15:52> Time Seen by Provider: 10/13/21 14:15 <KELSY Macdonald Last Filed: 10/13/21 15:52> Source: patient <KELSY Macdonald Last Filed: 10/13/21 15:52> Mode of arrival: EMS <KELSY Macdonald Last Filed: 10/13/21 15:52> Limitations: no limitations <KELSY Macdonald Last Filed: 10/13/21 15:52> History of Present Illness HPI narrative: 20-year-old male with a past medical history of developmental delay, XXYY, seizures, and pseudoseizures presents to the emergency department with EMS with complaints of chest pain x 1 day, and inability to get an erection X1 week. According to EMS patient was getting transferred to a doctor's appointment by the crude oil driver of the [employer] then he stated that he is having 10/10 severe centralized chest pain. When asked him to elaborate on it he said it started yesterday while moving furniture. When I asked patient why he is here today he states during happy time it does not go up and nothing comes out . He states this has been happening for a while now. He states the chest pain is better but still in the center of his chest, he says its a 10/10 constant and radiates to his right arm. He has no other complaints at this time. He denies fevers, chills, nausea, vomiting, abdominal pain, shortness of breath, headache, dizziness, vision changes. <KELSY Macdonald Last Filed: 10/13/21 15:52> MD complaint: chest pain <KELSY Macdonald Last Filed: 10/13/21 15:52> Onset (ago): day(s) <KELSY Macdonald Last Filed: 10/13/21 15:52> Timing of current episode: constant <KELSY Macdonald Last Filed: 10/13/21 15:52> Prior episodes: No <KELSY Macdonald - Last Filed: 10/13/21 15:52> Onset: during rest (while moving furniture) <KELSY Macdonald - Last Filed: 10/13/21 15:52> Pain location: substernal <KELSY Macdonald - Last Filed: 10/13/21 15:52> Pain radiation: none <KELSY Macdonald - Last Filed: 10/13/21 15:52> Severity: severe <KELSY Macdonald - Last Filed: 10/13/21 15:52> Pain scale (0-10): 10 <KELSY Macdonald - Last Filed: 10/13/21 15:52> Quality: heaviness and sharp <KELSY Macdonald - Last Filed: 10/13/21 15:52> Relieving factors: nothing <KELSY Macdonald - Last Filed: 10/13/21 15:52> Exacerbating factors: nothing <KELSY Macdonald - Last Filed: 10/13/21 15:52> Treatment prior to arrival: none <KELSY Macdonald - Last Filed: 10/13/21 15:52> Related Data Home Medications: Home Medications Medication Instructions Recorded Confirmed blood pressure monitor (Blood #1 ea 11/13/20 07/07/21 Pressure Kit) clindamycin phosphate 1 % topical 1 appl TOPICAL 2XW 11/13/20 09/16/21 gel melatonin 3 mg capsule 3 mg PO BEDTIME 11/13/20 09/16/21 quetiapine 200 mg tablet 400 mg PO BEDTIME 01/08/21 09/16/21 quetiapine 50 mg tablet (Seroquel) 50 mg PO DAILY PRN 01/08/21 09/16/21 quetiapine 50 mg tablet (Seroquel) 50 mg PO DAILY@1600 01/08/21 09/16/21 divalproex 500 mg tablet,delayed 1,000 mg PO BID tab 04/08/21 09/16/21 release chlorhexidine gluconate 0.12 % 15 ml PO BEDTIME 07/29/21 09/16/21 mouthwash docosahexaenoic acid (dha)-epa 1 cap PO BID 07/29/21 09/16/21 capsule fluoride (sodium) 1.1 % dental 1 appl DENTAL BEDTIME 07/29/21 09/16/21 cream (Denta 5000 Plus) guanfacine 2 mg tablet 2 mg PO DAILY 07/29/21 09/16/21 guanfacine 4 mg tablet,extended 1 tab PO BEDTIME 07/29/21 09/16/21 release 24 hr metformin 500 mg tablet 1 tab PO BID 07/29/21 09/16/21 phenylephrine-acetaminophen 5 1 tab PO Q6H PRN 07/29/21 09/16/21 mg-325 mg tablet ibuprofen 800 mg tablet 1 tab PO BID PRN 10/13/21 lithium carbonate 300 mg capsule 1 cap PO BID 10/13/21 Previous Rx's Medication Instructions Recorded docusate sodium 100 mg capsule 100 mg PO BID #60 cap 02/26/21 (Colace) polyethylene glycol 3350 17 17 g PO BID 30 Days #1020 g 07/07/21 gram/dose oral powder (Miralax) acetaminophen 325 mg tablet 650 mg PO Q6H PRN 30 Days #120 tab 08/13/21 prednisone 20 mg tablet 20 mg PO .COMPLEX #18 tab 08/13/21 <KELSY Macdonald - Last Filed: 10/13/21 15:52> Allergies/Adverse Reactions: Allergies Allergy/AdvReac Type Severity Reaction Status Date / Time methylphenidate Allergy Unknown UNKNOWN Verified 08/13/21 11:43 [From RITALIN] shrimp [SHRIMP] Allergy Unknown HIVES Verified 08/13/21 11:43 haloperidol [From Haldol] Allergy Involuntary Verified 09/17/21 15:30 Spasms <KELSY Macdonald - Last Filed: 10/13/21 15:52> Review of Systems Review of Systems: Constitutional : No Weight loss, No Fever, No Chills, No Fatigue, No Malaise ENT/Mouth : No sore throat, No Rhinorrhea Eyes: No Eye Pain, No Swelling, No Redness Cardiovascular : + Chest Pain, No SOB, No Dyspnea on Exertion, No Orthopnea, No Edema, No Palpitations Respiratory : No Cough, No Sputum, No Wheezing Gastrointestinal : No Nausea, No Vomiting, No Diarrhea, No Constipation, No abdominal Pain, No Hematochezia, No Melena Genitourinary : No Dysuria, No Urinary Frequency, No Hematuria, Musculoskeletal : No joint pain, No Myalgias, No Joint Swelling Skin : No Skin Lesions, No rash Neuro : No Weakness, No Numbness, No Dizziness, No Headache Psych + decreased libido, No anxiety, No depression, No SI no HI All other systems reviewed and are negative <KELSY Macdonald - Last Filed: 10/13/21 15:52> PMF Past Medical History Medical History: Medical History Chronic abdominal pain Developmental disability Seizures XXYY syndrome <KELSY Macdonald - Last Filed: 10/13/21 15:52> Surgical History: Surgical History History of testicular surgery <KELSY Macdonald - Last Filed: 10/13/21 15:52> Family History Family History: Family History Father No problems noted. Mother Hypertension Diabetes Other History of brain cancer <KELSY Macdonald - Last Filed: 10/13/21 15:52> Social History Social History: Social History Housing: Assisted Living Facility Alcohol intake: never Patient Tobacco Use Status: Current everyday Tobacco user Tobacco use type: Cigarette Cigarettes Per Day: 3 Years Smoked: 16 years old Smoked in Last 30 Days: Yes e-Cigarette/Vaping Use: Currently Using Use of substances other than those prescribed or required for medical reasons: No Substance Use Type: Crack/Cocaine and Marijuana Advance Directives: No Advance Directives Information Provided: Yes service: No Current occupational status: disabled <KELSY Macdonald - Last Filed: 10/13/21 15:52> Physical Exam Vital Signs: Vital Signs: Last Vital Signs Temp 98.1 F 10/13/21 14:18 Pulse 99 10/13/21 14:18 Resp 14 10/13/21 14:18 BP 139/87 10/13/21 14:18 Pulse Ox 98 10/13/21 14:18 Body Mass Index 41.5 <KELSY Macdonald - Last Filed: 10/13/21 15:52> Vital Signs: Last Vital Signs Temp 98.1 F 10/13/21 14:18 Pulse 99 10/13/21 14:18 Resp 14 10/13/21 14:18 BP 139/87 10/13/21 14:18 Pulse Ox 98 10/13/21 14:18 Body Mass Index 41.5 <Argenis Mariano MD - Last Filed: 10/13/21 16:08> Appearance: Alert.? Oriented X3.? No acute distress.? Head: Normocephalic, atraumatic, no step-offs or deformities Eyes: Pupils equal, round and reactive to light.? ENT: Pharynx normal.? Neck: Normal inspection.? Neck supple.? CVS: Normal heart rate and rhythm.? Pulses normal.?+ pain to palpation to anterior chest wall. Respiratory: No respiratory distress.? Breath sounds normal.? Abdomen: Soft and nontender.? Skin: Skin warm and dry.? Normal skin color.? Normal skin turgor.? Extremities: No lower extremity edema.? No calf ttp. 5/5 strength to bilateral upper and lower extremities Back: No midline tenderness, no C-spine tenderness, full range of motion, no CVA tenderness bilaterally Neuro: Oriented X 3.? No motor deficit.? No sensory deficit. <KELSY Macdonald - Last Filed: 10/13/21 15:52> Course Reevaluation(s) Reevaluation #1: No leukocytosis, baseline anemia is noted. No acute electrolyte abnormalities. Troponin negative. Urine clean. Sign out will be given to Dr. Mariano <KELSY Macdonald - Last Filed: 10/13/21 15:52> of I received sign-out from DAYTON Page. patient feels better, patient's troponin negative, EKG shows nonspecific T-wave inversion in lead 3, patient asymptomatic. Patient ready to be discharged to his long term. <Argenis Mariano MD - Last Filed: 10/13/21 16:08> Time: 15:51 <KELSY Macdonald - Last Filed: 10/13/21 15:52> MDM - Chest Pain MDM Narrative Medical decision making narrative: 1420 20-year-old male past medical history significant for anxiety, autism, XXYY, seizures and pseudoseizures presents to the emergency department with complaints of chest pain x1 day substernal, nonradiating, heaviness/stabbing and decreased libido. Upon physical examination patient reports pain to palpation of anterior chest wall, lungs are clear to auscultation S1-S2 appreciated free of murmur, abdomen soft nontender nondistended. No focal neuro deficits. Patient has 5/5 strength upper and lower extremities. 2+ pulses equal in bilateral in upper extremities. Plan at this time is to obtain basic labs, troponin, chest x-ray. <KELSY Macdonald - Last Filed: 10/13/21 15:52> Lab Data Result diagrams: : 10/13/21 15:05 10/13/21 15:05 <KELSY Macdonald - Last Filed: 10/13/21 15:52> Labs: Lab Results 10/13/21 10/13/21 10/13/21 Range/Units 15:05 15:05 15:05 WBC 7.6 (4.8-10.8) X10*3/uL RBC 4.32 L (4.60-5.80) X10*6/uL Hgb 12.9 L (14.0-18.0) g/dl Hct 40.0 L (42.0-52.0) % MCV 92.6 (80.0-98.0) fL MCH 29.9 (27.0-33.0) pg MCHC 32.3 (31.0-36.0) g/dl RDW 13.4 (11.0-16.0) % Plt Count 162 (160-400) X10*3/uL MPV 10.1 (9.4-12.4) fL Immature Gran % (Auto) 0.3 (0.0-0.4) % Neut % (Auto) 45.3 (45-73) % Lymph % (Auto) 33.2 (20-40) % [place] % (Auto) 10.6 (2-11) % Eos % (Auto) 10.1 H (0-4) % Baso % (Auto) 0.5 (0-2) % Lymph # (Auto) 2.5 (1.2-4.9) X10*3/uL [place] # (Auto) 0.8 (0.1-1.2) X10*3/uL Eos # (Auto) 0.8 H (0.0-0.4) X10*3/uL Baso # (Auto) 0.0 (0.0-0.2) X10*3/uL Abs Immat Gran (auto) 0.02 (0.00-0.03) X10*3/uL Absolute Neuts (auto) 3.4 (2.0-8.3) x10*3/uL Absolute Nucleated RBC 0.000 (0.0-0.012) X10*3/uL Nucleated RBC % (auto) 0.0 (0.0-0.2) /100WBC Sodium 142 (135-145) mmol/L Potassium 4.2 (3.3-5.1) mmol/L Chloride 107 (96-108) mmol/L Carbon Dioxide 27 (22-29) mmol/L Anion Gap 12 (12-20) BUN 14 (9-16) mg/dL Creatinine 1.01 (0.5-1.4) mg/dL Estim Creat Clear Calc 189.7 Estimated GFR > 60 Random Glucose 104 (60-115) mg/dL Calcium 9.1 (8.4-10.2) mg/dL Magnesium 2.0 (1.6-2.6) mg/dL Total Bilirubin 0.2 (0.0-1.0) mg/dL AST 32 (5-37) U/L ALT 31 (0-40) U/L Alkaline Phosphatase 85 (39-117) U/L Troponin I High Sens < 3.5 (<3.5-35.0) ng/L Total Protein 6.9 (6.5-8.0) g/dL Albumin 3.6 (3.5-5.0) g/dL Urine Color Urine Appearance Urine pH (5.0-8.0) Ur Specific [place] (1.005-1.025) Urine Protein (NEG-TRACE) MG/DL Urine Glucose (UA) (NEG) MG/DL Urine Ketones (NEG) MG/DL Urine Blood (NEG) Urine Nitrite (NEG) Ur Leukocyte Esterase (NEG) COVID-19 (JULISSA) (Negative) COVID-19 Clin Com 10/13/21 10/13/21 Range/Units 15:11 15:11 WBC (4.8-10.8) X10*3/uL RBC (4.60-5.80) X10*6/uL Hgb (14.0-18.0) g/dl Hct (42.0-52.0) % MCV (80.0-98.0) fL MCH (27.0-33.0) pg MCHC (31.0-36.0) g/dl RDW (11.0-16.0) % Plt Count (160-400) X10*3/uL MPV (9.4-12.4) fL Immature Gran % (Auto) (0.0-0.4) % Neut % (Auto) (45-73) % Lymph % (Auto) (20-40) % [place] % (Auto) (2-11) % Eos % (Auto) (0-4) % Baso % (Auto) (0-2) % Lymph # (Auto) (1.2-4.9) X10*3/uL [place] # (Auto) (0.1-1.2) X10*3/uL Eos # (Auto) (0.0-0.4) X10*3/uL Baso # (Auto) (0.0-0.2) X10*3/uL Abs Immat Gran (auto) (0.00-0.03) X10*3/uL Absolute Neuts (auto) (2.0-8.3) x10*3/uL Absolute Nucleated RBC (0.0-0.012) X10*3/uL Nucleated RBC % (auto) (0.0-0.2) /100WBC Sodium (135-145) mmol/L Potassium (3.3-5.1) mmol/L Chloride (96-108) mmol/L Carbon Dioxide (22-29) mmol/L Anion Gap (12-20) BUN (9-16) mg/dL Creatinine (0.5-1.4) mg/dL Estim Creat Clear Calc Estimated GFR Random Glucose (60-115) mg/dL Calcium (8.4-10.2) mg/dL Magnesium (1.6-2.6) mg/dL Total Bilirubin (0.0-1.0) mg/dL AST (5-37) U/L ALT (0-40) U/L Alkaline Phosphatase (39-117) U/L Troponin I High Sens (<3.5-35.0) ng/L Total Protein (6.5-8.0) g/dL Albumin (3.5-5.0) g/dL Urine Color YELLOW Urine Appearance CLEAR Urine pH 6.0 (5.0-8.0) Ur Specific [place] 1.020 (1.005-1.025) Urine Protein NEG (NEG-TRACE) MG/DL Urine Glucose (UA) NEG (NEG) MG/DL Urine Ketones 5 (NEG) MG/DL Urine Blood NEG (NEG) Urine Nitrite NEG (NEG) Ur Leukocyte Esterase NEG (NEG) COVID-19 (JULISSA) Negative (Negative) COVID-19 Clin Com See Note <KELSY Macdonald - Last Filed: 10/13/21 15:52> Lab Results 10/13/21 10/13/21 10/13/21 Range/Units 15:05 15:05 15:05 WBC 7.6 (4.8-10.8) X10*3/uL RBC 4.32 L (4.60-5.80) X10*6/uL Hgb 12.9 L (14.0-18.0) g/dl Hct 40.0 L (42.0-52.0) % MCV 92.6 (80.0-98.0) fL MCH 29.9 (27.0-33.0) pg MCHC 32.3 (31.0-36.0) g/dl RDW 13.4 (11.0-16.0) % Plt Count 162 (160-400) X10*3/uL MPV 10.1 (9.4-12.4) fL Immature Gran % (Auto) 0.3 (0.0-0.4) % Neut % (Auto) 45.3 (45-73) % Lymph % (Auto) 33.2 (20-40) % [place] % (Auto) 10.6 (2-11) % Eos % (Auto) 10.1 H (0-4) % Baso % (Auto) 0.5 (0-2) % Lymph # (Auto) 2.5 (1.2-4.9) X10*3/uL [place] # (Auto) 0.8 (0.1-1.2) X10*3/uL Eos # (Auto) 0.8 H (0.0-0.4) X10*3/uL Baso # (Auto) 0.0 (0.0-0.2) X10*3/uL Abs Immat Gran (auto) 0.02 (0.00-0.03) X10*3/uL Absolute Neuts (auto) 3.4 (2.0-8.3) x10*3/uL Absolute Nucleated RBC 0.000 (0.0-0.012) X10*3/uL Nucleated RBC % (auto) 0.0 (0.0-0.2) /100WBC Sodium 142 (135-145) mmol/L Potassium 4.2 (3.3-5.1) mmol/L Chloride 107 (96-108) mmol/L Carbon Dioxide 27 (22-29) mmol/L Anion Gap 12 (12-20) BUN 14 (9-16) mg/dL Creatinine 1.01 (0.5-1.4) mg/dL Estim Creat Clear Calc 189.7 Estimated GFR > 60 Random Glucose 104 (60-115) mg/dL Calcium 9.1 (8.4-10.2) mg/dL Magnesium 2.0 (1.6-2.6) mg/dL Total Bilirubin 0.2 (0.0-1.0) mg/dL AST 32 (5-37) U/L ALT 31 (0-40) U/L Alkaline Phosphatase 85 (39-117) U/L Troponin I High Sens < 3.5 (<3.5-35.0) ng/L Total Protein 6.9 (6.5-8.0) g/dL Albumin 3.6 (3.5-5.0) g/dL Urine Color Urine Appearance Urine pH (5.0-8.0) Ur Specific [place] (1.005-1.025) Urine Protein (NEG-TRACE) MG/DL Urine Glucose (UA) (NEG) MG/DL Urine Ketones (NEG) MG/DL Urine Blood (NEG) Urine Nitrite (NEG) Ur Leukocyte Esterase (NEG) COVID-19 (JULISSA) (Negative) COVID-19 Clin Com 10/13/21 10/13/21 Range/Units 15:11 15:11 WBC (4.8-10.8) X10*3/uL RBC (4.60-5.80) X10*6/uL Hgb (14.0-18.0) g/dl Hct (42.0-52.0) % MCV (80.0-98.0) fL MCH (27.0-33.0) pg MCHC (31.0-36.0) g/dl RDW (11.0-16.0) % Plt Count (160-400) X10*3/uL MPV (9.4-12.4) fL Immature Gran % (Auto) (0.0-0.4) % Neut % (Auto) (45-73) % Lymph % (Auto) (20-40) % [place] % (Auto) (2-11) % Eos % (Auto) (0-4) % Baso % (Auto) (0-2) % Lymph # (Auto) (1.2-4.9) X10*3/uL [place] # (Auto) (0.1-1.2) X10*3/uL Eos # (Auto) (0.0-0.4) X10*3/uL Baso # (Auto) (0.0-0.2) X10*3/uL Abs Immat Gran (auto) (0.00-0.03) X10*3/uL Absolute Neuts (auto) (2.0-8.3) x10*3/uL Absolute Nucleated RBC (0.0-0.012) X10*3/uL Nucleated RBC % (auto) (0.0-0.2) /100WBC Sodium (135-145) mmol/L Potassium (3.3-5.1) mmol/L Chloride (96-108) mmol/L Carbon Dioxide (22-29) mmol/L Anion Gap (12-20) BUN (9-16) mg/dL Creatinine (0.5-1.4) mg/dL Estim Creat Clear Calc Estimated GFR Random Glucose (60-115) mg/dL Calcium (8.4-10.2) mg/dL Magnesium (1.6-2.6) mg/dL Total Bilirubin (0.0-1.0) mg/dL AST (5-37) U/L ALT (0-40) U/L Alkaline Phosphatase (39-117) U/L Troponin I High Sens (<3.5-35.0) ng/L Total Protein (6.5-8.0) g/dL Albumin (3.5-5.0) g/dL Urine Color YELLOW Urine Appearance CLEAR Urine pH 6.0 (5.0-8.0) Ur Specific [place] 1.020 (1.005-1.025) Urine Protein NEG (NEG-TRACE) MG/DL Urine Glucose (UA) NEG (NEG) MG/DL Urine Ketones 5 (NEG) MG/DL Urine Blood NEG (NEG) Urine Nitrite NEG (NEG) Ur Leukocyte Esterase NEG (NEG) COVID-19 (JULISSA) Negative (Negative) COVID-19 Clin Com See Note <Argenis Mariano MD - Last Filed: 10/13/21 16:08> Discharge Plan Discharge Clinical Impression: Costochondritis, Chest pain not due to acute coronary syndrome, Decreased libido <KELSY Macdonald - Last Filed: 10/13/21 15:52> Patient Disposition: Home, Self-Care <KELSY Macdonald - Last Filed: 10/13/21 15:52> Instructions: Costochondritis (ED), Chest Wall Pain (ED) <KELSY Macdonald - Last Filed: 10/13/21 15:52> Prescriptions: No Action docusate sodium [Colace] 100 mg capsule 100 mg PO BID Qty: 60 RF: 2 polyethylene glycol 3350 [Miralax] 17 gram/dose powder 17 g PO BID 30 Days Qty: 1020 RF: 2 acetaminophen 325 mg tablet 650 mg PO Q6H PRN (Reason: pain) 30 Days Qty: 120 RF: 0 metformin 500 mg tablet 1 tab PO BID RF: 0 guanfacine 2 mg tablet 2 mg PO DAILY RF: 0 Acetaminophen Congestion-Pain 5-325 mg Tablet 1 tab PO Q6H PRN (Reason: Congestion/PAIN) RF: 0 chlorhexidine gluconate 0.12 % mouthwash 15 ml PO BEDTIME RF: 0 guanfacine 4 mg tablet extended release 24 hr 1 tab PO BEDTIME RF: 0 Fish Oil (with DHA-EPA) Capsule 1 cap PO BID RF: 0 fluoride (sodium) [Denta 5000 Plus] 1.1 % Cream 1 appl DENTAL BEDTIME RF: 0 quetiapine [Seroquel] 50 mg Tablet 50 mg PO DAILY PRN (Reason: Anxiety) RF: 0 quetiapine [Seroquel] 50 mg Tablet 50 mg PO DAILY@1600 RF: 0 quetiapine 200 mg Tablet 400 mg PO BEDTIME RF: 0 ibuprofen 800 mg tablet 1 tab PO BID PRN (Reason: Pain) RF: 0 lithium carbonate 300 mg capsule 1 cap PO BID RF: 0 prednisone 20 mg tablet 20 mg PO .COMPLEX Qty: 18 RF: 0 clindamycin phosphate 1 % gel 1 appl topical 2XW RF: 0 melatonin 3 mg capsule 3 mg PO BEDTIME RF: 0 (DME) blood pressure monitor [Blood Pressure Kit] Kit See Rx Instructions .ROUTE .MEDSUPPLY Qty: 1 RF: 0 divalproex 500 mg tablet,delayed release (DR/EC) 1,000 mg PO BID RF: 0 <KELSY Macdonald - Last Filed: 10/13/21 15:52> Referrals: Eb Joaquin MD [Physician] - 2 weeks <KELSY Macdonald - Last Filed: 10/13/21 15:52>
[2021-10-13 14:18] VITALS: BP 139/87; BP 162/98; PULSE 100; PULSE 99; RESP 14; TEMP 36.7; O2SAT 100; O2SAT 98; BMI 41.5
[2021-10-13 15:08] LABS: MANUAL DIFF FLAG NO
[2021-10-13 15:11] LABS: Basophils Percent Auto 0.5 % (0-2); Eosinophils Absolute Auto 0.8 X10*3/uL (0.0-0.4); Eosinophils Percent Auto 10.1 % (0-4); Hemoglobin 12.9 g/dl (14.0-18.0); Imm Gran Abs Auto 0.02 X10*3/uL (0.00-0.03); Imm Gran Pct Auto 0.3 % (0.0-0.4); Lymphocytes Absolute Auto 2.5 X10*3/uL (1.2-4.9); Lymphocytes Percent Auto 33.2 % (20-40); Mean Corpuscular HGB Conc 32.3 g/dl (31.0-36.0); Mean Corpuscular Hemoglobin 29.9 pg (27.0-33.0); Mean Corpuscular Volume 92.6 fL (80.0-98.0); Mean Platelet Volume 10.1 fL (9.4-12.4); Monocytes Absolute Auto 0.8 X10*3/uL (0.1-1.2); Monocytes Percent Auto 10.6 % (2-11); Neutrophils Absolute Auto 3.4 x10*3/uL (2.0-8.3); Neutrophils Percent Auto 45.3 % (45-73); Platelet Count 162 X10*3/uL (160-400); Red Blood Count 4.32 X10*6/uL (4.60-5.80); Red Cell Distribution Width 13.4 % (11.0-16.0); White Blood Count 7.6 X10*3/uL (4.8-10.8)
[2021-10-13 15:25] LABS: Appearance Urine CLEAR; Color Urine YELLOW; Glucose Urine UA NEG (NEG); Leukocyte Esterase Urine NEG (NEG); Nitrite Urine NEG (NEG); Urine Blood NEG (NEG); Urine Ketones 5 MG/DL (NEG); Urine Protein NEG (NEG-TRACE)
[2021-10-13 15:28] LABS: Troponin-I High Sensitivity < 3.5 ng/L (<3.5-35.0)
[2021-10-13 15:33] LABS: Alanine Aminotransferase 31 U/L (0-40); Albumin Level 3.6 g/dL (3.5-5.0); Alkaline Phosphatase 85 U/L (39-117); Anion Gap 12 (12-20); Aspartate Amino Transferase 32 U/L (5-37); Bilirubin Total 0.2 mg/dL (0.0-1.0); Blood Urea Nitrogen 14 mg/dL (9-16); Calcium 9.1 mg/dL (8.4-10.2); Carbon Dioxide 27 mmol/L (22-29); Chloride 107 mmol/L (96-108); Creatinine Clr Calc Pharmacy 189.7; Estimated Glomerular Filt Rate > 60; Glucose Random 104 mg/dL (60-115); Potassium 4.2 mmol/L (3.3-5.1); Sodium 142 mmol/L (135-145); Total Protein 6.9 g/dL (6.5-8.0)
[2021-10-13 15:36] LABS: COVID-19 Test Negative (Negative); IDNOW Serial# 9DD0AD1C
--- NOTE | 2021-10-13 16:19 | PC.NURSE ---
called the [facility] for transport back to the [facility], spoke with the housekeeping director jaqueline according to her the hospital needs to transport the pt back to the [facility] because the pt attempts to jump out of running vehicles case management will arrange the transport
[2021-10-13 17:55] VITALS: BP 121/66; PULSE 95; RESP 19; O2SAT 96
[2021-10-13] MEDS: Acetaminophen 325 MG TABLET 650 MG PO (18:03)
--- NOTE | 2021-10-13 18:16 | PC.NURSE ---
pt's [facility] director called back to see if he can get a bhn consult, this rn attempted to explain that pt is not for psy/behavioral reason and that there was no need for bhn consult, and when this rn s[poke to her hours ago that nothing was mentioned about a bhn referral at that time this rn asked lila from care team to speak to the [facility] director in regards to this matter, lila spoke to the director and pt is clear to go back to the [facility] ambulance is booked and should be arriving some time around 2100
--- NOTE | 2021-10-13 18:56 | MHC.CARE ---
CARE team support requested by ED nurse to speak with pt's foundry supervisor re: his presentation to the ED for medical assessment vs previously unknown and not communicated request for a crisis evaluation. This keno writer / runner spoke with Claudette who reported that the pt had just discharged back to the half-way from [facility] yesterday and today he attempted to jump out of a moving vehicle while being transported to his PCP appointment and then was following a female staff calling her names. There was no reported physical aggression toward self, others, or objects. This keno writer / runner advised Claudette that it needs to be communicated with the ED if there is a behavioral incident prior to him being transported to the hospital and they should not be relying on the EMS crew to be the sole source of details that would inform how his care is managed. Plan at this time is for pt to be transported back to the half-way and from there they can call N to request a mobile crisis evaluation.
[2021-10-13 19:48] VITALS: BP 133/70; PULSE 95; RESP 18; O2SAT 100
[2021-10-13] MEDS: QUEtiapine Fumarate 50 MG TABLET PO (19:50)
--- NOTE | 2021-10-13 21:21 | PC.NURSE ---
Patient is waiting for transportation back to half-way for 4 hours and will not be picked up until after 10 pm tonight.
== END 2021-10-13 22:00 | disposition home or self-care (01) ==
PROVIDERS: Physician Assistant; Emergency Provider Emergency Medicine
DX: M94.0 Chondrocostal junction syndrome [Tietze] (principal); R07.9 Chest pain, unspecified; R68.82 Decreased libido; F17.210 Nicotine dependence, cigarettes, uncomplicated; Z71.6 Tobacco abuse counseling; F14.10 Cocaine abuse, uncomplicated; F12.10 Cannabis abuse, uncomplicated; Z20.822 Contact with and (suspected) exposure to COVID-19; Z79.899 Other long term (current) drug therapy
CPT/HCPCS: 36415; 80053; 81003; 83735; 84484; 85025; 87635; 93005; 99283; 99285

== ENCOUNTER 2021-10-17 22:16 | Emergency (ER) | payer MEDICAID, SELFPAY ==
[2021-10-17 22:22] VITALS: BP 129/84; PULSE 108; PULSE 120; RESP 18; TEMP 36.4; O2SAT 96; O2SAT 97; BMI 34.4
--- NOTE | 2021-10-17 22:43 | ED.GENADULT ---
HPI - General Adult General Chief complaint: Seizure Stated complaint: CRISIS, 2 STRESS INDUCED SZ&SYNC EPIS Time Seen by Provider: 10/17/21 22:35 Source: patient and EMS Mode of arrival: EMS Limitations: no limitations History of Present Illness HPI narrative: Patient comes emergency room after having of seizures/pseudo seizure at his care home. Patient states that he was very upset that staff. Patient denies any other symptoms. Patient states that he did not bite his tongue or cluster in her continence. Patient denies suicidal or homicidal ideation. Related Data Home Medications Medication Instructions Recorded Confirmed blood pressure monitor (Blood #1 ea 11/13/20 07/07/21 Pressure Kit) clindamycin phosphate 1 % topical 1 appl TOPICAL 2XW 11/13/20 09/16/21 gel melatonin 3 mg capsule 3 mg PO BEDTIME 11/13/20 09/16/21 quetiapine 200 mg tablet 400 mg PO BEDTIME 01/08/21 09/16/21 quetiapine 50 mg tablet (Seroquel) 50 mg PO DAILY PRN 01/08/21 09/16/21 quetiapine 50 mg tablet (Seroquel) 50 mg PO DAILY@1600 01/08/21 09/16/21 divalproex 500 mg tablet,delayed 1,000 mg PO BID tab 04/08/21 09/16/21 release chlorhexidine gluconate 0.12 % 15 ml PO BEDTIME 07/29/21 09/16/21 mouthwash docosahexaenoic acid (dha)-epa 1 cap PO BID 07/29/21 09/16/21 capsule fluoride (sodium) 1.1 % dental 1 appl DENTAL BEDTIME 07/29/21 09/16/21 cream (Denta 5000 Plus) guanfacine 2 mg tablet 2 mg PO DAILY 07/29/21 09/16/21 guanfacine 4 mg tablet,extended 1 tab PO BEDTIME 07/29/21 09/16/21 release 24 hr metformin 500 mg tablet 1 tab PO BID 07/29/21 09/16/21 phenylephrine-acetaminophen 5 1 tab PO Q6H PRN 07/29/21 09/16/21 mg-325 mg tablet ibuprofen 800 mg tablet 1 tab PO BID PRN 10/13/21 lithium carbonate 300 mg capsule 1 cap PO BID 10/13/21 Previous Rx's Medication Instructions Recorded docusate sodium 100 mg capsule 100 mg PO BID #60 cap 02/26/21 (Colace) polyethylene glycol 3350 17 17 g PO BID 30 Days #1020 g 07/07/21 gram/dose oral powder (Miralax) acetaminophen 325 mg tablet 650 mg PO Q6H PRN 30 Days #120 tab 08/13/21 prednisone 20 mg tablet 20 mg PO .COMPLEX #18 tab 08/13/21 Allergies Allergy/AdvReac Type Severity Reaction Status Date / Time methylphenidate Allergy Unknown UNKNOWN Verified 08/13/21 11:43 [From RITALIN] shrimp [SHRIMP] Allergy Unknown HIVES Verified 08/13/21 11:43 haloperidol [From Haldol] Allergy Involuntary Verified 09/17/21 15:30 Spasms Review of Systems Review of Systems: Constitutional : No Weight loss, No Fever, No Chills, No Night Sweats, No Fatigue, No Malaise ENT/Mouth : No Hearing loss, No Ear Pain, No Nasal Congestion, No Sinus Pain, No Hoarseness, No sore throat, No Rhinorrhea, No Swallowing Difficulty Eyes: No Eye Pain, No Swelling, No Redness, No Foreign Body, No Discharge, No Vision Changes Cardiovascular : No Chest Pain, No SOB, No Dyspnea on Exertion, No Orthopnea, No Edema, No Palpitations Respiratory : No Cough, No Sputum, No Wheezing, No Smoke Exposure, No Dyspnea Gastrointestinal : No Nausea, No Vomiting, No Diarrhea, No Constipation, No abdominal Pain, No Hematochezia, No Melena Genitourinary : no irregular bleeding, No Dysuria, No Urinary Frequency, No Hematuria, No Urinary Incontinence, No Urgency, No Flank Pain, No Urinary Flow Changes, No Hesitancy Musculoskeletal : No joint pain, No Myalgias, No Joint Swelling Skin : No Skin Lesions, No rash Neuro : No Weakness, No Numbness, No Paresthesias, No Loss of Consciousness, No Dizziness, No Headache, complaining of having a pseudo-seizure/seizure Psych : No Anxiety/Panic, No Depression, No SI/HI/AH/VH, No Social Issues, Heme/Lymph: No Bruising, No Bleeding,No Lymphadenopathy Endocrine : No Polyuria, No Polydipsia, No Temperature Intolerance PMFSH Past Medical History Medical History Chronic abdominal pain Developmental disability Seizures XXYY syndrome Surgical History History of testicular surgery Family History Family History Father No problems noted. Mother Hypertension Diabetes Other History of brain cancer Social History Social History Housing: Assisted Living Facility Alcohol intake: never Patient Tobacco Use Status: Current everyday Tobacco user Tobacco use type: Cigarette Cigarettes Per Day: 3 Years Smoked: 16 years old e-Cigarette/Vaping Use: Currently Using Substance Use Type: Crack/Cocaine and Marijuana Advance Directives: No Advance Directives Information Provided: No service: No Current occupational status: disabled Physical Exam Vital Signs: Vital Signs: Last Vital Signs Temp 97.5 F 10/17/21 22:22 Pulse 120 H 10/17/21 22:22 Resp 18 10/17/21 22:22 BP 129/84 10/17/21 22:22 Pulse Ox 97 10/17/21 22:22 Body Mass Index 34.4 Const: Other: Appearance: Alert. Oriented X3. No acute distress. Eyes: Pupils equal, round and reactive to light. ENT: Pharynx normal. Neck: Normal inspection. Neck supple. No lymph nodes noted. No crepitus CVS: Normal heart rate and rhythm. Pulses normal. Normal S1 and S2 Respiratory: No respiratory distress. Breath sounds normal. No Wheezing. No rales Abdomen: Soft and nontender. No rigidity. No distention. good BS x4 Skin: Skin warm and dry. Patient has significant facial seborrheic dermatitis Extremities: No lower extremity edema. No lower extremity edema. No Lacerations. No Rash Neuro: Oriented X 3. No motor deficit. No sensory deficit. Moving all extermities. No slurred speech. Course Course Course Narrative: At this time is unclear patient had a seizure versus pseudo-seizure. Patient declined blood work, patient demanding Ritalin or Haldol. However, these 2 medications are listed as patient's allergies. Patient is declining any further workup or any other medication. As we are trying to get in touch with the patient's care home for further information, I was informed by the patient's nurse that patient walked out of the emergency room. Our charge nurse has been informed, security is out looking for the patient. Security found the patient outside the ED, patient started making suicidal statements. Then he had a pseudo-seizure. According to our charge nurse, well patient was having a seizure, patient was shaking, talking, answering questions. Patient agreed to go to the behavior Health pod, patient states that he is going to break a window as he has done it before. At this time, patient is being redirected, PO medication being offered. I was informed by the Behavioral Health pod the patient is escalating, patient is known to become violent and break windows. Patient was given IM Ativan and Benadryl Physician observation started at 23:46, patient is on a Section 12, behavior [facility] consult pending Discharge Plan Discharge Clinical Impression: Suicidal ideation Prescriptions: No Action docusate sodium [Colace] 100 mg capsule 100 mg PO BID Qty: 60 RF: 2 polyethylene glycol 3350 [Miralax] 17 gram/dose powder 17 g PO BID 30 Days Qty: 1020 RF: 2 acetaminophen 325 mg tablet 650 mg PO Q6H PRN (Reason: pain) 30 Days Qty: 120 RF: 0 metformin 500 mg tablet 1 tab PO BID RF: 0 guanfacine 2 mg tablet 2 mg PO DAILY RF: 0 Acetaminophen Congestion-Pain 5-325 mg Tablet 1 tab PO Q6H PRN (Reason: Congestion/PAIN) RF: 0 chlorhexidine gluconate 0.12 % mouthwash 15 ml PO BEDTIME RF: 0 guanfacine 4 mg tablet extended release 24 hr 1 tab PO BEDTIME RF: 0 Fish Oil (with DHA-EPA) Capsule 1 cap PO BID RF: 0 fluoride (sodium) [Denta 5000 Plus] 1.1 % Cream 1 appl DENTAL BEDTIME RF: 0 quetiapine [Seroquel] 50 mg Tablet 50 mg PO DAILY PRN (Reason: Anxiety) RF: 0 quetiapine [Seroquel] 50 mg Tablet 50 mg PO DAILY@1600 RF: 0 quetiapine 200 mg Tablet 400 mg PO BEDTIME RF: 0 ibuprofen 800 mg tablet 1 tab PO BID PRN (Reason: Pain) RF: 0 lithium carbonate 300 mg capsule 1 cap PO BID RF: 0 prednisone 20 mg tablet 20 mg PO .COMPLEX Qty: 18 RF: 0 clindamycin phosphate 1 % gel 1 appl topical 2XW RF: 0 melatonin 3 mg capsule 3 mg PO BEDTIME RF: 0 (DME) blood pressure monitor [Blood Pressure Kit] Kit See Rx Instructions .ROUTE .MEDSUPPLY Qty: 1 RF: 0 divalproex 500 mg tablet,delayed release (DR/EC) 1,000 mg PO BID RF: 0
--- NOTE | 2021-10-17 22:45 | PC.NURSE ---
PT IS REQUESTING HALDOL AND ADDERALL. DR DIAZ AWARE. WHEN THIS NURSE ARRIVES AT ROOM PT IS NOT IN ROOM AND WAS SEEN WALKING TO DOOR. SECURITY AWARE. DR. DIAZ AND [facility] NURSE AWARE OF SITUATION.
--- NOTE | 2021-10-17 22:45 | PC.NURSE ---
PT DENIES S/I OR H/I AND WALKS WITH STEADY EVEN GAIT. PT ALERT, RESPIRATIONS EASY, N/L. PT CALM AT THIS TIME.
--- NOTE | 2021-10-17 23:00 | PC.NURSE ---
JOVANYG NURSE AND SECURITY OUTSIDE SPEAKING WITH PT.
[2021-10-17 23:30] VITALS: RESP 24
[2021-10-17] MEDS: diphenhydrAMINE HCL 50 MG/ML VIAL IM (23:30)
[2021-10-17] MEDS: LORazepam 2 MG/ML VIAL IM (23:30)
[2021-10-17 23:45] VITALS: BP 145/103; PULSE 125; RESP 20; TEMP 36.6; O2SAT 96
[2021-10-17 23:54] VITALS: BP 145/103; PULSE 125; RESP 20; TEMP 36.6; O2SAT 96
[2021-10-18] VITALS: RESP 20
[2021-10-18 00:15] VITALS: RESP 18
[2021-10-18 00:30] VITALS: BP 123/74; PULSE 107; RESP 17; O2SAT 96
--- NOTE | 2021-10-18 05:48 | PC.NURSE ---
Patient slept through the night, patient received Ativan 2 mg IM and Benadryl 50 mg IM at 2330 for increased agitation, with + effect, pending urine sample and covid swab, patient requested not to send him to [facility], V[facility], plan for patient is to communicate with detention and send him back, patient is not suicidal came to ED for seizure, will continue to monitor.
--- NOTE | 2021-10-18 07:27 | PC.NURSE ---
patient appears to remain at rest at present, respirations are even and unlabored patient appears in no distress
[2021-10-18] MEDS: diphenhydrAMINE HCL 50 MG/ML VIAL IM (10:57)
[2021-10-18] MEDS: LORazepam 2 MG/ML VIAL IM (10:57)
[2021-10-18] MEDS: Haloperidol Lactate 5 MG/ML VIAL IM (11:21)
--- NOTE | 2021-10-18 12:37 | PC.NURSE ---
this ticket writer gave haldol with direction from provider who stated client had history of receiving haldol in january with no ill effect. patient was requesting medication.
--- NOTE | 2021-10-18 12:47 | MHC.CARE ---
CARE Team met with patient in 4; he was alert and oriented, calm and cooperative. ?He denied suicidal/homicidal ideation, said he does not want to hurt anyone or himself and would like to go home. Patient reported that he said something that he did not mean last night, that he wanted to get hit by a car and said he does not really want to. This patient is well known to [facility] through previous ED visits with similar presentations and at this time appears to be at his baseline. No further intervention needed at this time, patient is clear for discharge home. College Recruiter, SARAN Mckoy and medical provider, KELSY Pan both consulted and in agreement with plan.
== END 2021-10-18 13:08 | disposition home or self-care (01) ==
PROVIDERS: Emergency Provider Emergency Medicine
DX: R45.851 Suicidal ideations (principal); R56.9 Unspecified convulsions
CPT/HCPCS: 96372; 99284; 99285; J1200; J2060

== ENCOUNTER 2021-10-20 14:49 | Emergency (ER) | payer MEDICAID, SELFPAY ==
--- NOTE | 2021-10-20 14:55 | ED.PSYCH ---
HPI - Psych General Chief Complaint: Psychiatric Symptoms Stated Complaint: CRISIS,SEC 12,RT FOREARM LAC Time Seen by Provider: 10/20/21 14:53 Source: EMS and old records reviewed Mode of arrival: EMS Limitations: other (agitated, aggressive) History of Present Illness HPI Narrative: came in aggressive, screaming I am going to fight all of you! Police at bedside, spitting at staff. Called staff members haroon holman MD complaint: other (aggression, states he wants to , used a piece of glass to scrape R forearm) Onset (ago): day(s) (today) Duration: constant History of same: Yes Relieving factors: none Exacerbating factors: none Context: other (hx of similar bouts in the past) Associated psychiatric symptoms: suicidal ideation Associated symptoms: denies other symptoms Treatments prior to arrival: placed on mental health hold If self harm: admits thoughts of self harm Related Data Home Medications Medication Instructions Recorded Confirmed blood pressure monitor (Blood #1 ea 11/13/20 07/07/21 Pressure Kit) melatonin 3 mg capsule 3 mg PO BEDTIME 11/13/20 10/20/21 quetiapine 200 mg tablet 400 mg PO BEDTIME 01/08/21 09/16/21 divalproex 500 mg tablet,delayed 1,000 mg PO BID tab 04/08/21 10/20/21 release guanfacine 2 mg tablet 2 mg PO DAILY 07/29/21 10/20/21 guanfacine 4 mg tablet,extended 1 tab PO BEDTIME 07/29/21 10/20/21 release 24 hr metformin 500 mg tablet 1 tab PO BIDWM 07/29/21 10/20/21 ibuprofen 800 mg tablet 1 tab PO BID PRN 10/13/21 10/20/21 lithium carbonate 300 mg capsule 1 cap PO BID 10/13/21 10/20/21 psyllium 1 tbsp PO DAILY 10/20/21 10/20/21 Previous Rx's Medication Instructions Recorded docusate sodium 100 mg capsule 100 mg PO BID #60 cap 02/26/21 (Colace) acetaminophen 325 mg tablet 650 mg PO Q6H PRN 30 Days #120 tab 08/13/21 Allergies Allergy/AdvReac Type Severity Reaction Status Date / Time methylphenidate Allergy Unknown UNKNOWN Verified 08/13/21 11:43 [From RITALIN] shrimp [SHRIMP] Allergy Unknown HIVES Verified 08/13/21 11:43 haloperidol [From Haldol] Allergy Involuntary Verified 09/17/21 15:30 Spasms Review of Systems Review of Systems: ROS unable to be obtained due to aggression and agitation [facility] Past Medical History Attestation statement: The following information was validated with the patient. Medical History Chronic abdominal pain Developmental disability Seizures XXYY syndrome Surgical History History of testicular surgery Family History Family History Father No problems noted. Mother Hypertension Diabetes Other History of brain cancer Social History Social History Housing: Assisted Living Facility Alcohol intake: never Patient Tobacco Use Status: Current everyday Tobacco user Tobacco use type: Cigarette Cigarettes Per Day: 3 Years Smoked: 16 years old e-Cigarette/Vaping Use: Currently Using Substance Use Type: Crack/Cocaine and Marijuana Advance Directives: No Advance Directives Information Provided: No service: No Current occupational status: disabled Physical Exam Vital Signs: Vital Signs: Last Vital Signs Temp 98.8 F 10/20/21 17:12 Pulse 90 10/20/21 17:12 Resp 18 10/20/21 17:12 BP 128/80 10/20/21 17:12 Pulse Ox 98 10/20/21 17:12 Body Mass Index 37.2 Appearance: Alert. Aggressive Let me , I will fight all of you. Attempting to hit and spit at staff Eyes: Pupils equal, round and reactive to light. ENT: Pharynx normal. Neck: Normal inspection. Neck supple. CVS: Normal heart rate and rhythm. Pulses normal. Respiratory: No respiratory distress. Breath sounds normal. Abdomen: Soft and obese Skin: Skin warm and dry. Normal skin color. Normal skin turgor. Extremities: No lower extremity edema. R forearm superficial linear abrasions anterior very superficial Neuro: moves all extremities, knows his name and where he is, will not participate in neuro exam due to degree of agitation Psych: very angry and aggressive, attempting to harm staff Course Course Course Narrative: Physician observation started at 545pm Patient placed in physician observation because the patient needed more time for medication to work and to see N to be evaluated for the need for psych admission. At the time observation was started the patient's vitals were stable, patient is alert and oriented but slightly agitated, Neuro: nonfocal, CV RRR, Lungs clear MDM - Psych MDM Narrative Medical decision making narrative: 20 yo male well known to us for mental health issues and presenting after violent outbursts - comes to the ED threatening to harm staff and has police at bedside very aggressive, making physical threats and having to be held by police he also attempted to spit, at this time given his attempts at harm and his verbal threats he will need both physical and chemical restraints to keep himself and staff safe. Once more calm will request crisis consult Lab Data Result diagrams: 10/20/21 17:10 10/20/21 17:10 Labs: Lab Results 10/20/21 10/20/21 10/20/21 Range/Units 17:10 17:10 17:10 WBC 10.1 (4.8-10.8) X10*3/uL RBC 4.83 (4.60-5.80) X10*6/uL Hgb 14.3 (14.0-18.0) g/dl Hct 44.6 (42.0-52.0) % MCV 92.3 (80.0-98.0) fL MCH 29.6 (27.0-33.0) pg MCHC 32.1 (31.0-36.0) g/dl RDW 13.9 (11.0-16.0) % Plt Count 232 D (160-400) X10*3/uL MPV 10.1 (9.4-12.4) fL Immature Gran % (Auto) 0.5 H (0.0-0.4) % Neut % (Auto) 49.6 (45-73) % Lymph % (Auto) 35.0 (20-40) % [place] % (Auto) 9.4 (2-11) % Eos % (Auto) 5.0 H (0-4) % Baso % (Auto) 0.5 (0-2) % Lymph # (Auto) 3.5 (1.2-4.9) X10*3/uL [place] # (Auto) 1.0 (0.1-1.2) X10*3/uL Eos # (Auto) 0.5 H (0.0-0.4) X10*3/uL Baso # (Auto) 0.1 (0.0-0.2) X10*3/uL Abs Immat Gran (auto) 0.05 H (0.00-0.03) X10*3/uL Absolute Neuts (auto) 5.0 (2.0-8.3) x10*3/uL Absolute Nucleated RBC 0.000 (0.0-0.012) X10*3/uL Nucleated RBC % (auto) 0.0 (0.0-0.2) /100WBC Sodium 141 (135-145) mmol/L Potassium 4.5 (3.3-5.1) mmol/L Chloride 107 (96-108) mmol/L Carbon Dioxide 24 (22-29) mmol/L Anion Gap 15 (12-20) BUN 16 (9-16) mg/dL Creatinine 1.04 (0.5-1.4) mg/dL Estim Creat Clear Calc 183.1 Estimated GFR > 60 Random Glucose 104 (60-115) mg/dL Calcium 9.9 D (8.4-10.2) mg/dL Total Bilirubin 0.2 (0.0-1.0) mg/dL Direct Bilirubin 0.2 (0.0-0.5) mg/dL AST 37 (5-37) U/L ALT 40 (0-40) U/L Alkaline Phosphatase 104 D (39-117) U/L Total Protein 8.3 H D (6.5-8.0) g/dL Albumin 4.2 (3.5-5.0) g/dL Urine Opiates Screen (Not Detect) Urine Fentanyl Screen (Not Detect) Ur Barbiturates Screen (Not Detect) Valproic Acid Cancelled Ur Phencyclidine Scrn (Not Detect) Ur Amphetamines Screen (Not Detect) U Benzodiazepines Scrn (Not Detect) Urine Cocaine Screen (Not Detect) U Marijuana (THC) Screen (Not Detect) COVID-19 (JULISSA) Negative (Negative) COVID-19 Clin Com See Note 10/20/21 Range/Units 17:14 WBC (4.8-10.8) X10*3/uL RBC (4.60-5.80) X10*6/uL Hgb (14.0-18.0) g/dl Hct (42.0-52.0) % MCV (80.0-98.0) fL MCH (27.0-33.0) pg MCHC (31.0-36.0) g/dl RDW (11.0-16.0) % Plt Count (160-400) X10*3/uL MPV (9.4-12.4) fL Immature Gran % (Auto) (0.0-0.4) % Neut % (Auto) (45-73) % Lymph % (Auto) (20-40) % [place] % (Auto) (2-11) % Eos % (Auto) (0-4) % Baso % (Auto) (0-2) % Lymph # (Auto) (1.2-4.9) X10*3/uL [place] # (Auto) (0.1-1.2) X10*3/uL Eos # (Auto) (0.0-0.4) X10*3/uL Baso # (Auto) (0.0-0.2) X10*3/uL Abs Immat Gran (auto) (0.00-0.03) X10*3/uL Absolute Neuts (auto) (2.0-8.3) x10*3/uL Absolute Nucleated RBC (0.0-0.012) X10*3/uL Nucleated RBC % (auto) (0.0-0.2) /100WBC Sodium (135-145) mmol/L Potassium (3.3-5.1) mmol/L Chloride (96-108) mmol/L Carbon Dioxide (22-29) mmol/L Anion Gap (12-20) BUN (9-16) mg/dL Creatinine (0.5-1.4) mg/dL Estim Creat Clear Calc Estimated GFR Random Glucose (60-115) mg/dL Calcium (8.4-10.2) mg/dL Total Bilirubin (0.0-1.0) mg/dL Direct Bilirubin (0.0-0.5) mg/dL AST (5-37) U/L ALT (0-40) U/L Alkaline Phosphatase (39-117) U/L Total Protein (6.5-8.0) g/dL Albumin (3.5-5.0) g/dL Urine Opiates Screen Not Detected (Not Detect) Urine Fentanyl Screen Not Detected (Not Detect) Ur Barbiturates Screen Not Detected (Not Detect) Valproic Acid Ur Phencyclidine Scrn Not Detected (Not Detect) Ur Amphetamines Screen Not Detected (Not Detect) U Benzodiazepines Scrn Not Detected (Not Detect) Urine Cocaine Screen Not Detected (Not Detect) U Marijuana (THC) Screen POSITIVE H (Not Detect) COVID-19 (JULISSA) (Negative) COVID-19 Clin Com Discharge Plan Discharge Clinical Impression: Aggression, Abrasion Prescriptions: No Action docusate sodium [Colace] 100 mg capsule 100 mg PO BID Qty: 60 RF: 2 acetaminophen 325 mg tablet 650 mg PO Q6H PRN (Reason: pain) 30 Days Qty: 120 RF: 0 metformin 500 mg tablet 1 tab PO BIDWM RF: 0 guanfacine 2 mg tablet 2 mg PO DAILY RF: 0 guanfacine 4 mg tablet extended release 24 hr 1 tab PO BEDTIME RF: 0 quetiapine 200 mg Tablet 400 mg PO BEDTIME RF: 0 ibuprofen 800 mg tablet 1 tab PO BID PRN (Reason: Pain) RF: 0 lithium carbonate 300 mg capsule 1 cap PO BID RF: 0 Reguloid, Sugar Free Powder 1 tbsp PO DAILY RF: 0 melatonin 3 mg capsule 3 mg PO BEDTIME RF: 0 (DME) blood pressure monitor [Blood Pressure Kit] Kit See Rx Instructions .ROUTE .MEDSUPPLY Qty: 1 RF: 0 divalproex 500 mg tablet,delayed release (DR/EC) 1,000 mg PO BID RF: 0
[2021-10-20] MEDS: OLANZapine 10 MG VIAL IM (15:05)
--- NOTE | 2021-10-20 15:44 | PHA.MEDREC ---
Pharmacy Consult ? Medication Reconciliation Pharmacy has completed the medication reconciliation. Fill history shows pt on lithium 300 mg bid on 10/09/21, but when center pharmacy was called they could not confirm fill date
[2021-10-20] MEDS: LORazepam 2 MG/ML VIAL IM (16:00)
[2021-10-20 17:12] VITALS: BP 128/80; PULSE 90; RESP 18; TEMP 37.1; O2SAT 98; BMI 37.2
[2021-10-20 17:22] LABS: MANUAL DIFF FLAG NO
[2021-10-20 17:25] LABS: Basophils Absolute Auto 0.1 X10*3/uL (0.0-0.2); Basophils Percent Auto 0.5 % (0-2); Eosinophils Absolute Auto 0.5 X10*3/uL (0.0-0.4); Hematocrit 44.6 % (42.0-52.0); Hemoglobin 14.3 g/dl (14.0-18.0); Imm Gran Abs Auto 0.05 X10*3/uL (0.00-0.03); Imm Gran Pct Auto 0.5 % (0.0-0.4); Lymphocytes Absolute Auto 3.5 X10*3/uL (1.2-4.9); Mean Corpuscular HGB Conc 32.1 g/dl (31.0-36.0); Mean Corpuscular Hemoglobin 29.6 pg (27.0-33.0); Mean Corpuscular Volume 92.3 fL (80.0-98.0); Mean Platelet Volume 10.1 fL (9.4-12.4); Monocytes Percent Auto 9.4 % (2-11); Neutrophils Percent Auto 49.6 % (45-73); Platelet Count 232 X10*3/uL (160-400); Red Blood Count 4.83 X10*6/uL (4.60-5.80); Red Cell Distribution Width 13.9 % (11.0-16.0); White Blood Count 10.1 X10*3/uL (4.8-10.8)
[2021-10-20 17:40] LABS: COVID-19 Test Negative (Negative); IDNOW Serial# 9DD0AD1C
[2021-10-20 17:42] LABS: Amphetamine Screen Urine Not Detected (Not Detect); Barbiturates, Urine Not Detected (Not Detect); Benzodiazepines Screen Urine Not Detected (Not Detect); Cannabinoid Screen Urine POSITIVE (Not Detect); Cocaine Screen Urine Not Detected (Not Detect); Fentanyl, urine Not Detected (Not Detect); Opiate Screen Urine Not Detected (Not Detect); Phencyclidine Screen Urine Not Detected (Not Detect)
[2021-10-20 17:42] LABS: Alanine Aminotransferase 40 U/L (0-40); Albumin Level 4.2 g/dL (3.5-5.0); Alkaline Phosphatase 104 U/L (39-117); Anion Gap 15 (12-20); Aspartate Amino Transferase 37 U/L (5-37); Bilirubin Direct 0.2 mg/dL (0.0-0.5); Bilirubin Total 0.2 mg/dL (0.0-1.0); Blood Urea Nitrogen 16 mg/dL (9-16); Calcium 9.9 mg/dL (8.4-10.2); Carbon Dioxide 24 mmol/L (22-29); Chloride 107 mmol/L (96-108); Creatinine Clr Calc Pharmacy 183.1; Estimated Glomerular Filt Rate > 60; Glucose Random 104 mg/dL (60-115); Potassium 4.5 mmol/L (3.3-5.1); Sodium 141 mmol/L (135-145); Total Protein 8.3 g/dL (6.5-8.0)
--- NOTE | 2021-10-20 20:49 | MHC.CARE ---
T/w met with pt. pt tells me that he became escalated because he wanted to call his mom (who usually calms him down) and staff reported that he could not use the telephone because Pt called police to many times yesterday. pt reports he cut his arm with glass (superficial) and states that he broke a [employer] car's mirror. Pt repeats I wanna go home, I don't need to go inpatient again . Pt is calm and cooperative with this proposal lead writer. He has been in behavioral control. Pt is agreeable to staying the night with the plan to have the CARE team met with him tomorrow and he return back to his senior care.
[2021-10-20 22:39] LABS: Valproate 51.7 mcg/mL (50.0-100.0)
[2021-10-20] MEDS: Divalproex Sodium 500 MG TABLET.DR 1000 MG PO (22:48)
[2021-10-20] MEDS: Docusate Sodium 100 MG CAPSULE PO (22:48)
[2021-10-20] MEDS: Lithium Carbonate 300 MG CAPSULE PO (22:49)
[2021-10-20] MEDS: Melatonin 3 MG TABLET PO (22:49)
[2021-10-20 22:50] LABS: Magnesium 1.9 mg/dL (1.6-2.6)
[2021-10-20 22:51] LABS: Lithium < 0.10 mmol/L (0.60-1.20)
[2021-10-20] MEDS: QUEtiapine Fumarate 400 MG TABLET PO (22:54)
[2021-10-20] MEDS: metFORMIN HCl 500 MG TABLET PO (22:58)
[2021-10-20 23:47] VITALS: RESP 17
--- NOTE | 2021-10-21 05:35 | PC.NURSE ---
Patient slept through the night, no distress observed/reported, patient presented with good behavioral control whole evening and shared jokes with staff member, medication compliant, care team will reassess the patient and may [facility] to [facility], will continue to monitor.
--- NOTE | 2021-10-21 07:15 | PC.NURSE ---
patient appears to remain at rest presently respirations appear unlabored and even,patient appears in no distress
[2021-10-21] MEDS: Docusate Sodium 100 MG CAPSULE PO (08:33)
[2021-10-21] MEDS: Lithium Carbonate 300 MG CAPSULE PO (08:33)
[2021-10-21] MEDS: Divalproex Sodium 500 MG TABLET.DR 1000 MG PO (08:33)
[2021-10-21] MEDS: LORazepam 2 MG/ML VIAL IM (12:51)
[2021-10-21] MEDS: OLANZapine 10 MG VIAL 5 MG IM (12:51)
[2021-10-21] MEDS: metFORMIN HCl 500 MG TABLET PO (17:40)
== END 2021-10-21 18:26 | disposition home or self-care (01) ==
PROVIDERS: Internal Medicine; Emergency Provider Emergency Medicine; PCP Nurse Practitioner Family
DX: S50.811A Abrasion of right forearm, initial encounter (principal); R45.851 Suicidal ideations; F14.90 Cocaine use, unspecified, uncomplicated; F12.90 Cannabis use, unspecified, uncomplicated; F91.1 Conduct disorder, childhood-onset type; F17.210 Nicotine dependence, cigarettes, uncomplicated; Z71.6 Tobacco abuse counseling; Z20.822 Contact with and (suspected) exposure to COVID-19; Z79.899 Other long term (current) drug therapy
CPT/HCPCS: 36415; 80048; 80076; 80164; 80178; 80307; 83735; 85025; 87635; 96372; 99284; 99285; J2060

== ENCOUNTER 2021-11-05 20:14 | Emergency (ER) | payer MEDICAID, SELFPAY ==
--- NOTE | ~2021-11-05 | XR_ITS ---
EXAMINATION: XR CHEST CLINICAL INFORMATION: Chest pain. COMPARISON: Most recent chest radiograph dated 12/29/2020. TECHNIQUE: Frontal view of the chest was obtained. FINDINGS: The lungs are clear. The cardiomediastinal silhouette is normal in size. There is no pleural effusion or pneumothorax. No acute osseous abnormality. XR/XR chest 1V IMPRESSION: No acute cardiopulmonary findings.
[2021-11-05 20:27] VITALS: BP 126/96; BP 136/96; PULSE 106; PULSE 113; RESP 20; TEMP 36.8; O2SAT 97; BMI 43.2
--- NOTE | 2021-11-05 20:32 | ECG_ITS ---
Test Reason : GENERAL MEDICAL Blood Pressure : / mmHG Vent. Rate : 106 BPM Atrial Rate : 106 BPM P-R Int : 134 ms QRS Dur : 070 ms QT Int : 322 ms P-R-T Axes : 031 008 008 degrees QTc Int : 427 ms Sinus tachycardia Otherwise normal ECG When compared with ECG of 13-OCT-2021 14:27, No significant change was found Referred By: Tosin Wright Electronically Signed By:Zaki Graham
--- NOTE | 2021-11-05 20:53 | PC.NURSE ---
Ekg completed, labs drawn and sent. Pt is cooperative and calm at this time. no nausea or vomiting. Will continue to montior.
--- NOTE | 2021-11-05 20:57 | ED_ITS ---
HPI - Chest Pain General Chief Complaint: Chest Pain Stated Complaint: cp Time Seen by Provider: 11/05/21 20:32 Source: patient and EMS Mode of arrival: EMS Limitations: no limitations History of Present Illness HPI narrative: 20-year-old male presents via EMS for chest pain that started yesterday. Patient lives in a skilled nursing and is well known to this facility. complaint: chest pain Onset (ago): day(s) (2) Timing of current episode: episodic and now resolved Prior episodes: Yes Onset: during rest Pain location: left chest Pain radiation: left arm Severity: mild Pain scale (0-10): 0 Quality: aching Relieving factors: rest Exacerbating factors: exertion, movement and stress Treatment prior to arrival: aspirin Risk Factors Thoracic aortic dissection risk factors: none Related Data Home Medications Medication Instructions Recorded Confirmed blood pressure monitor (Blood #1 ea 11/13/20 07/07/21 Pressure Kit) melatonin 3 mg capsule 3 mg PO BEDTIME 11/13/20 10/20/21 quetiapine 200 mg tablet 400 mg PO BEDTIME 01/08/21 10/20/21 divalproex 500 mg tablet,delayed 1,000 mg PO BID tab 04/08/21 10/20/21 release guanfacine 2 mg tablet 2 mg PO DAILY 07/29/21 10/20/21 guanfacine 4 mg tablet,extended 1 tab PO BEDTIME 07/29/21 10/20/21 release 24 hr metformin 500 mg tablet 1 tab PO BIDWM 07/29/21 10/20/21 ibuprofen 800 mg tablet 1 tab PO BID PRN 10/13/21 10/20/21 lithium carbonate 300 mg capsule 1 cap PO BID 10/13/21 10/20/21 psyllium 1 tbsp PO DAILY 10/20/21 10/20/21 Previous Rx's Medication Instructions Recorded docusate sodium 100 mg capsule 100 mg PO BID #60 cap 02/26/21 (Colace) acetaminophen 325 mg tablet 650 mg PO Q6H PRN 30 Days #120 tab 08/13/21 Allergies Allergy/AdvReac Type Severity Reaction Status Date / Time methylphenidate Allergy Unknown UNKNOWN Verified 08/13/21 11:43 [From RITALIN] shrimp [SHRIMP] Allergy Unknown HIVES Verified 08/13/21 11:43 haloperidol [From Haldol] Allergy Involuntary Verified 09/17/21 15:30 Spasms Review of Systems Review of Systems: Constitutional: No Weight loss, No Fever, No Chills, No Night Sweats, No Fatigue, No Malaise ENT/Mouth: No Hearing loss, No Ear Pain, No Nasal Congestion, No Sinus Pain, No Hoarseness, No sore throat, No Rhinorrhea, No Swallowing Difficulty Eyes: No Eye Pain, No Swelling, No Redness, No Foreign Body, No Discharge, No Vision Changes Cardiovascular: pos Chest Pain, no SOB, no Dyspnea on Exertion, No Orthopnea, No Edema, No Palpitations Respiratory: No Cough, No Sputum, No Wheezing, No Smoke Exposure, No Dyspnea Gastrointestinal: No Nausea, No Vomiting, No Diarrhea, No abdominal Pain, No Hematochezia, No Melena Genitourinary: No irregular bleeding, No Dysuria, No Urinary Frequency, No Hematuria, No Urinary Incontinence, No Urgency, No Flank Pain, No Urinary Flow Changes, No Hesitancy Musculoskeletal: No joint pain, No Myalgias, No Joint Swelling Skin: No Skin Lesions, No rash Neuro: No Weakness, No Numbness, No Paresthesias, No Loss of Consciousness, No Dizziness, No Headache Psych: No Anxiety/Panic, No Depression, No SI/HI/AH/VH Heme/Lymph: No Bruising, No Bleeding,No Lymphadenopathy Endocrine: No Polyuria, No Polydipsia, No Temperature Intolerance Yes all other systems are reviewed and are negative FORMERLY [facility] Past Medical History Attestation statement: The following information was validated with the patient. Source: old records reviewed Medical History Chronic abdominal pain Developmental disability Seizures XXYY syndrome Surgical History History of testicular surgery Family History Family History Father No problems noted. Mother Hypertension Diabetes Other History of brain cancer Social History Social History Housing: Assisted Living Facility Alcohol intake: never Patient Tobacco Use Status: Current everyday Tobacco user Tobacco use type: Cigarette Cigarettes Per Day: 3 Years Smoked: 16 years old e-Cigarette/Vaping Use: Currently Using Use of substances other than those prescribed or required for medical reasons: No Substance Use Type: Crack/Cocaine and Marijuana Advance Directives: No Advance Directives Information Provided: Yes service: No Current occupational status: disabled Physical Exam Vital Signs: Vital Signs: Last Vital Signs Temp 97.8 F 11/05/21 21:31 Pulse 107 H 11/05/21 21:31 Resp 16 11/05/21 22:08 BP 117/72 11/05/21 21:31 Pulse Ox 98 11/05/21 21:31 BMI result Body Mass Index 43.2 Appearance: Alert. Oriented X3. No acute distress. Eyes: Pupils equal, round and reactive to light. Sclera nonicteric. ENT: Pharynx normal. Moist mucous membranes. Acne surrounding mouth and nose. Neck: Normal inspection. Neck supple. CVS: Tachycardic heart rate and rhythm. Apical pulse equal pulses to extremities. No chest wall tenderness to palpation. Respiratory: No respiratory distress. Breath sounds normal. Abdomen: Soft and nontender. Obese. Skin: Skin warm and dry. Normal skin color. Normal skin turgor. Extremities: No lower extremity edema. Moves all extremities against resistance. Neuro: No motor deficit. No sensory deficit. Cranial nerves 2-12 intact. Course Course Course Narrative: 20-year-old male presents from a skilled nursing via EMS for chest pain evaluation. Has had visits to this facility in the past for behavioral disturbance, cocaine abuse, and psychiatric symptoms. On my initial evaluation patient states that he does not have any chest pain at this moment and that the chest pain has resolved. Will order chest x-ray, EKG and troponins. Chest x-ray, EKG and troponins are negative. Patient will be discharged to skilled nursing facility. MDM - Chest Pain Differential Diagnosis Differential diagnosis: Likely fracture of rib, pneumothorax, atypical chest pain, costochondritis and chest pain Medical Records Data Attestation: I reviewed the patient's medical records. Lab Data Attestation: I reviewed the patient's lab results. Labs: Lab Results 11/05/21 11/05/21 Range/Units 20:45 20:49 Troponin I High Sens < 3.5 (<3.5-35.0) ng/L COVID-19 (JULISSA) Negative (Negative) COVID-19 Clin Com See Note Imaging Data Chest x-ray: Attestation: I personally reviewed and interpreted this imaging study as follows: Radiologist's impression: EXAMINATION: XR CHEST CLINICAL INFORMATION: Chest pain. COMPARISON: Most recent chest radiograph dated 12/29/2020. TECHNIQUE: Frontal view of the chest was obtained. FINDINGS: The lungs are clear. The cardiomediastinal silhouette is normal in size. There is no pleural effusion or pneumothorax. No acute osseous abnormality. XR/XR chest 1V IMPRESSION: No acute cardiopulmonary findings. ECG Data ECG #1: Attestation: I personally reviewed and interpreted this ECG as follows: ECG interpretation date: 11/05/21 ECG interpretation time: 20:45 Prior ECG tracings: available for review Interpretation: Vent. Rate : 106 BPM ? ? Atrial Rate : 106 BPM ?? P-R Int : 134 ms? QRS Dur : 070 ms ? ? QT Int : 322 ms ? ? ? P-R-T Axes : 031 008 008 degrees ?? QTc Int : 427 ms ? Sinus tachycardia Otherwise normal ECG When compared with ECG of 13-OCT-2021 14:27, No significant change was found known Scores Heart Score History: -1- moderately suspicious ECG: -0- normal Age: -0- < or = 45 Risk factory: -1- 1 or 2 risk factors Troponin: -0- < or = normal limit Score: 2 Risk: 1.7% Discharge Plan Discharge Clinical Impression: Atypical chest pain Patient Disposition: Home, Self-Care Instructions: Noncardiac Chest Pain (ED) Additional Instructions: You were evaluated for chest pain. Chest x-ray is negative for acute findings. EKG is sinus rhythm. Cardiac enzymes troponin is 0. Your COVID test is negative. Please follow-up with primary care physician as needed. Thank you for choosing this emergency department for evaluation. Please follow-up with primary care physician as needed. Return to the emergency department for any new, concerning, or worsening symptoms. Prescriptions: No Action docusate sodium [Colace] 100 mg capsule 100 mg PO BID Qty: 60 RF: 2 acetaminophen 325 mg tablet 650 mg PO Q6H PRN (Reason: pain) 30 Days Qty: 120 RF: 0 metformin 500 mg tablet 1 tab PO BIDWM RF: 0 guanfacine 2 mg tablet 2 mg PO DAILY RF: 0 guanfacine 4 mg tablet extended release 24 hr 1 tab PO BEDTIME RF: 0 quetiapine 200 mg Tablet 400 mg PO BEDTIME RF: 0 ibuprofen 800 mg tablet 1 tab PO BID PRN (Reason: Pain) RF: 0 lithium carbonate 300 mg capsule 1 cap PO BID RF: 0 Reguloid, Sugar Free Powder 1 tbsp PO DAILY RF: 0 melatonin 3 mg capsule 3 mg PO BEDTIME RF: 0 (DME) blood pressure monitor [Blood Pressure Kit] Kit See Rx Instructions .ROUTE .MEDSUPPLY Qty: 1 RF: 0 divalproex 500 mg tablet,delayed release (DR/EC) 1,000 mg PO BID RF: 0 Interventions: ED Discharge Assessment Last Done: 11/05/21 22:09 Discharge Date/Time: 11/05/21 22:10
[2021-11-05 21:09] LABS: COVID-19 Test Negative (Negative)
[2021-11-05 21:21] LABS: Troponin-I High Sensitivity < 3.5 ng/L (<3.5-35.0)
[2021-11-05 21:31] VITALS: BP 117/72; PULSE 107; RESP 19; TEMP 36.6; O2SAT 98
[2021-11-05 22:08] VITALS: RESP 16
== END 2021-11-05 22:10 | disposition home or self-care (01) ==
PROVIDERS: Nurse Practitioner Family; Emergency Provider Internal Medicine
DX: R07.89 Other chest pain (principal); Z20.822 Contact with and (suspected) exposure to COVID-19; F17.200 Nicotine dependence, unspecified, uncomplicated; F14.10 Cocaine abuse, uncomplicated
CPT/HCPCS: 36415; 71045; 84484; 87635; 93005; 99283; 99284

== ENCOUNTER 2021-11-16 20:44 | Emergency (ER) | payer MEDICAID, SELFPAY ==
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
[2021-11-16 20:33] VITALS: BP 118/65; PULSE 86; RESP 18; TEMP 36.9; O2SAT 98
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
[2021-11-16 21:09] VITALS: BP 118/65; BP 140/80; PULSE 86; RESP 18; TEMP 36.9; O2SAT 97; O2SAT 98; BMI 42.2
[2021-11-16 21:59] LABS: COVID-19 Test Negative (Negative)
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
--- NOTE | 2021-11-17 05:29 | PC.NURSE ---
Patient slept through the night, no distress observed/reported, medication list needs some clarification, med rec partially completed, patient was assessed by N, cleared for crises, care team is going to follow up with long term and coordinate d/c. will continue to monitor.
--- NOTE | 2021-11-17 07:20 | PC.NURSE ---
patient appeared to remain asleep at beginning of shift, respirations even and unlabored,. patient appears in no distress
--- NOTE | 2021-11-17 07:42 | PC.NURSE ---
attempted to call and [facility] to clarify cpz order, no answer for either. asked pharmacy to assist.
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
--- NOTE | 2021-11-17 10:59 | PC.NURSE ---
client persists in antagonizing staff following t/w around unit and talking about his negative behavior, continues to threaten and punch windows
[2021-11-17] MEDS: Divalproex Sodium 500 MG TABLET.DR 1000 MG PO (11:06)
[2021-11-17] MEDS: chlorproMAZINE HCl 100 MG TABLET PO (11:06)
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
[2021-11-17] MEDS: chlorproMAZINE HCl 25 MG TABLET 50 MG PO ×2 (11:36→16:35)
[2021-11-17] MEDS: metFORMIN HCl 500 MG TABLET PO (11:36)
--- NOTE | 2021-11-17 16:06 | MHC.CARE ---
DDS fraud investigator here meeting with Pt now.
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
== END 2021-11-17 17:32 | disposition home or self-care (01) ==
PROVIDERS: Physician Assistant; Emergency Provider Emergency Medicine
DX: F91.9 Conduct disorder, unspecified (principal); R45.1 Restlessness and agitation; F41.9 Anxiety disorder, unspecified; Q98.0 Klinefelter syndrome karyotype 47, XXY; F12.90 Cannabis use, unspecified, uncomplicated; F17.200 Nicotine dependence, unspecified, uncomplicated; Z79.899 Other long term (current) drug therapy
CPT/HCPCS: 36415; 73110; 73130; 87635; 99283

== ENCOUNTER 2021-11-27 16:14 | Emergency (ER) | payer MEDICAID, SELFPAY ==
--- NOTE | ~2021-11-27 | XR_ITS ---
EXAMINATION: XR HAND WRIST LT CLINICAL INFORMATION: Left hand and wrist pain COMPARISON: None. TECHNIQUE: 3 views of the left hand and wrist FINDINGS: Tip of the left finger not well seen. No fracture. Normal alignment. Normal mineralization. No radiopaque foreign body. No soft tissue abnormality seen. XR/XR hand wrist LT IMPRESSION: No acute osseous abnormality.
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
[2021-11-27 16:27] VITALS: BP 148/78; BP 148/98; PULSE 119; RESP 20; O2SAT 98; BMI 42.7
[2021-11-27] MEDS: LORazepam 1 MG TABLET PO (16:47)
--- NOTE | 2021-11-27 18:20 | PC.NURSE ---
pt continues to attempt to pull things off wall (blood pressure cords, call moreira) and use them to wrap them around neck and arms, pt requiring staff redirection and security redirection frequently, remains in behavioral control. mlp discussing w this rn the possibility of moving pt to pod for safety. care team resistant to this measure, sts pts care plan is to not involve being in bh pod . consulting nursing power and recovery supervisor regarding care plan.
[2021-11-27] MEDS: diphenhydrAMINE HCL 50 MG/ML VIAL IM (18:45)
[2021-11-27] MEDS: OLANZapine 10 MG VIAL IM (18:45)
--- NOTE | 2021-11-27 18:57 | MHC.CARE ---
Pt is well known to CARE Team through a number of prior ED visits. CARE Team spoke with German who indicated that he wanted to return to his correction quickly as he does not like staying in the ED. Pt has a history of becoming disregulated during the holidays and that can lead to pt making suicidal statements/gestures/etc. This baseline behavior for pt when he is disregulated, however, he is able to self-regulate with support. CARE Team contacted pt's outpatient provider team and coordinated pt's return to his correction. ED providers informed CARE Team that pt would not be discharged back to the correction at this time. After pt was moved to the behavioral health pod, he requested to speak with CARE Team about returning to his correction. CARE Team will continue to advocate for what the pt wants.
[2021-11-27] MEDS: LORazepam 1 MG TABLET 2 MG PO (20:01)
[2021-11-27] MEDS: chlorproMAZINE HCl 100 MG TABLET PO (20:01)
[2021-11-27] MEDS: diphenhydrAMINE HCL 25 MG TABLET 50 MG PO (20:01)
[2021-11-27] MEDS: QUEtiapine Fumarate 400 MG TABLET PO (20:01)
--- NOTE | 2021-11-27 20:38 | MHC.CARE ---
CARE Team filed a written and oral report with [facility] regarding pt's placement.
[2021-11-28 04:52] LABS: COVID-19 Test Negative (Negative)
--- NOTE | 2021-11-28 05:20 | PC.NURSE ---
Patient slept through the night, no distress observed/reported, patient was screened by care team disposition d/c back to skilled nursing, patient reported he feels not safe to go back to skilled nursing at this time to the provider, provider to keep tonight with plan to d/c him in the morning, skilled nursing ready to take him back, behavior non concerning at this time, medication compliant, VSS, will continue to monitor.
--- NOTE | 2021-11-28 07:01 | PC.NURSE ---
patient appears to remain asleep at present respirations are even and unlabored patient appears in no distress
--- NOTE | 2021-11-28 11:59 | MHC.CARE ---
CARE TEAM contact Terri Belcher [phone] at 11:00am and it was reported German is allowed back into half-way. Transportation was arranged by RN an consulted with ED provider.
== END 2021-11-28 13:36 | disposition home or self-care (01) ==
PROVIDERS: Physician Assistant; Emergency Provider Emergency Medicine
DX: F91.9 Conduct disorder, unspecified (principal); M79.642 Pain in left hand; R45.1 Restlessness and agitation; F43.20 Adjustment disorder, unspecified; F32.A Depression, unspecified; F41.9 Anxiety disorder, unspecified; R45.851 Suicidal ideations; R45.850 Homicidal ideations; F89 Unspecified disorder of psychological development; Q98 Other sex chromosome abnormalities, male phenotype, not elsewhere classified; Z79.899 Other long term (current) drug therapy; F17.200 Nicotine dependence, unspecified, uncomplicated; Z20.822 Contact with and (suspected) exposure to COVID-19
CPT/HCPCS: 36415; 73110; 73130; 87635; 96372; 99284; 99285; J1200; Q0163

== ENCOUNTER → 2021-12-28 11:07 | Outpatient (BNVA) | payer MEDICAID, SELFPAY | PROVIDERS: PCP Nurse Practitioner Family; Visit Provider Hospitalist | DX: G47.33 Obstructive sleep apnea (adult) (pediatric) (principal); R06.00 Dyspnea, unspecified | CPT/HCPCS: 99202 ==

== ENCOUNTER → 2022-01-04 15:02 | Outpatient (REF) | payer MEDICAID, SELFPAY | LOC: HO.SL 15:02 | PROVIDERS: PCP Nurse Practitioner Family; Visit Provider Hospitalist | DX: G47.33 Obstructive sleep apnea (adult) (pediatric) (principal) | CPT/HCPCS: 95806 ==

== ENCOUNTER 2022-01-05 10:18 | Emergency (ER) | payer MEDICAID, SELFPAY ==
--- NOTE | ~2022-01-05 | XR_ITS ---
EXAMINATION: XR HAND, LEFT CLINICAL INFORMATION: Fall COMPARISON: None TECHNIQUE: PA, lateral, and oblique views of the left hand. FINDINGS: The bones and soft tissues are normal. No fracture. Alignment is anatomic. Joint spaces are maintained. No erosions or soft tissue calcifications. XR/XR hand LT 2V IMPRESSION: Normal left hand.
[2022-01-05 10:21] VITALS: BP 157/91; PULSE 110; RESP 16; TEMP 36.4; O2SAT 97; BMI 43.2
--- NOTE | 2022-01-05 12:24 | ED.EXTPRO ---
HPI - Extremity Problem General Chief complaint: Extremity Injury, Upper Stated complaint: Finger inj Time Seen by Provider: 01/05/22 11:55 Source: patient and other ( Staff member) Mode of arrival: ambulatory Limitations: no limitations History of Present Illness HPI Narrative: 21-year-old male coming from a longterm after a slip and fall on the ice yesterday causing him to strike his left 4th finger. Patient tells me he is left-hand dominant. He denies any head strike or loss of consciousness. He reports some pain with flexion of the finger but is able to do so. No numbness, tingling, warmth, redness or swelling. Related Data Home Medications Medication Instructions Recorded Confirmed blood pressure monitor (Blood #1 ea 11/13/20 07/07/21 Pressure Kit) chlorpromazine 100 mg tablet 100 mg PO BID PRN 11/17/21 11/27/21 chlorpromazine 50 mg tablet 50 mg PO TID 11/17/21 11/27/21 divalproex 500 mg tablet,delayed 1,000 mg PO BID 11/17/21 11/26/21 release docusate sodium 100 mg capsule 100 mg PO BID 11/17/21 11/26/21 guanfacine 2 mg tablet 2 mg PO BEDTIME 11/17/21 11/26/21 guanfacine 4 mg tablet,extended 4 mg PO BEDTIME 11/17/21 11/26/21 release 24 hr melatonin 3 mg tablet 3 mg PO BEDTIME 11/17/21 11/27/21 omega 2-hll-tct-fish oil 1,200 mg 1 cap PO DAILY 11/17/21 11/26/21 (144 mg-216 mg) capsule (Fish Oil) polyethylene glycol 3350 17 gram 17 g PO BID 11/17/21 11/26/21 oral powder packet (Miralax) quetiapine 400 mg tablet 800 mg PO BEDTIME 11/17/21 11/26/21 ibuprofen 800 mg tablet 800 mg PO BID PRN 11/26/21 11/26/21 psyllium husk 0.52 gram capsule 0 g PO 11/26/21 11/26/21 (Natural Fiber Laxative) guanfacine 4 mg tablet,extended 1 tab PO DAILY 11/27/21 11/27/21 release 24 hr benztropine 1 mg tablet 1 mg PO BID 12/28/21 quetiapine 400 mg tablet 400 mg PO BID 12/28/21 Previous Rx's Medication Instructions Recorded mupirocin 2 % topical ointment 1 appl TOPICAL BID #15 g 11/27/21 metformin 500 mg tablet 500 mg PO BID 30 Days #60 tab 12/28/21 ibuprofen 600 mg tablet 600 mg PO Q8H PRN #20 tab 01/05/22 Allergies Allergy/AdvReac Type Severity Reaction Status Date / Time methylphenidate Allergy Unknown UNKNOWN Verified 12/28/21 11:13 [From RITALIN] shrimp [SHRIMP] Allergy Unknown HIVES Verified 12/28/21 11:13 haloperidol [From Haldol] Allergy Involuntary Verified 12/28/21 11:13 Spasms Review of Systems Review of Systems: Yes all other systems are reviewed and are negative Constitutional: Constitutional: Reports no additional constitutional complaints, Denies body ache(s), Denies chills, Denies fever(s), Denies headache(s) and Denies weakness Eyes: Eyes: Reports no additional eye complaints and Denies change in vision ENT: Reports system reviewed and no additional complaints, except as documented, Denies dizziness, Denies headache(s), Denies nasal congestion, Denies nasal discharge and Denies neck pain Cardiovascular: Cardiovascular: Reports no additional cardiovascular complaints, Denies chest pain, Denies leg edema and Denies dyspnea Respiratory: Respiratory: Reports no additional respiratory complaints, Denies cough and Denies dyspnea Gastrointestinal: Gastrointestinal: Reports no additional gastrointestinal complaints, Denies abdominal pain, Denies diarrhea, Denies nausea and Denies vomiting Genitourinary: Genitourinary: Denies urinary incontinence Musculoskeletal: Musculoskeletal: Reports no additional musculoskeletal complaints, Denies back pain, Reports arthralgias, Denies joint swelling, Denies limited range of motion, Denies neck pain, Denies numbness and Denies tingling Integumentary/Breasts: Skin/Breast: Reports system reviewed and no additional complaints, except as docu and Denies rash Neurologic: Reports system reviewed and no additional complaints, except as documented, Denies Abnormal speech present, Denies dizziness, Denies headache(s), Denies numbness, Denies tingling and Denies weakness [facility] Past Medical History Attestation statement: The following information was validated with the patient. Source: old records reviewed and nursing notes reviewed Medical History Adjustment disorder Chronic abdominal pain Developmental disability Dyspnea Seborrheic dermatitis Seizures XXYY syndrome Surgical History History of testicular surgery Family History Family History Father No problems noted. Mother Hypertension Diabetes Other History of brain cancer Social History Social History Housing: Assisted Living Facility Alcohol intake: never Patient Tobacco Use Status: Current everyday Tobacco user Tobacco use type: Cigarette Years Smoked: 16 years old e-Cigarette/Vaping Use: Currently Using Substance Use Type: Crack/Cocaine and Marijuana Advance Directives: No Advance Directives Information Provided: No service: No Current occupational status: disabled Physical Exam Vital Signs: Vital Signs: Last Vital Signs Temp 97.6 F 01/05/22 10:21 Pulse 110 H 01/05/22 10:21 Resp 16 01/05/22 10:21 BP 157/91 H 01/05/22 10:21 Pulse Ox 97 01/05/22 10:21 BMI result Body Mass Index 43.2 Const: General: cooperative, healthy appearing, comfortable and no acute distress Orientation/consciousness: patient oriented x3 Limitations: no limitations HENMT: Head: Yes normal to inspection Ears: hearing grossly normal bilaterally General nose exam: Normal external nose present Face and sinus: Yes normal facial exam Mouth: Normal oral and palatal mucosa present Throat: Yes posterior oropharynx normal Eyes: General: appearance normal, both eyes and all related structures Pupils: Equal, round and reactive pupils present Neck: Neck: Yes normal visual inspection Chest: Chest palpation & inspection: normal inspection of the chest Resp: Effort & Inspection: normal respiratory effort Auscultation: clear to auscultation bilaterally Cardio: Rate: regular rate Rhythm: regular rhythm Peripheral pulses: Peripheral pulses 2+ throughout GI: Inspection: Yes normal to inspection Palpation (GI): Soft to palpation and nontender Auscultation: normal bowel sounds Back/Spine/Pelvis: Thoracic/Lumbar Spine: thoracic and lumbar spine normal to inspection Skin: General skin exam: no rashes or lesions noted Neuro: General: patient oriented x3, no focal motor deficits and normal sensation to monofilament Cranial nerves: Yes Equal, round and reactive pupils present Cognition (Neuro): normal cognition Speech: No Abnormal speech present Gait exam (Neuro): Normal gait present Motor exam (neuro): 5/5 motor strength present throughout Extrem: Other: There is tenderness over the left 4th digit at the MCP with some small areas of ecchymosis. There is no swelling. There is no warmth or redness. The patient is able to flex and extend the finger with no difficulty. Neurovascularly intact dista General: Yes normal to inspection Course Course Course Narrative: 21-year-old male here from a longterm with reports of slip and fall yesterday causing an injury to the left hand. Patient has pain which is worsened with flexion of the left 4th digit but no obvious deformity or swelling. X-ray show no bony abnormality. Likely contusion versus sprain. Recommended ice, NSAIDs and follow-up with primary care in 7 days if having persistent symptoms. Reviewed worrisome signs and symptoms of when to return to the emergency department. Comfortable discharge home. MDM - Extremity (Nontraumatic) Medical Records Attestation: I reviewed the patient's medical records. Lab Data Attestation: I reviewed the patient's lab results. Imaging Data hand x-ray: Attestation: I personally reviewed and interpreted this imaging study as follows: Radiologist's impression: [place] [id number] XRay Report Signed Patient: German Casillas MR#: [id number] : 2000 Acct:[id number] Age/Sex: 21 / M ADM Date: 01/05/22 Loc: HO.ED Attending Dr: Ordering Physician: Generic ED Physician Date of Service: 01/05/22 Procedure(s): XR hand LT 2V Accession Number(s): [id number] cc: Generic ED Physician~ EXAMINATION: XR HAND, LEFT CLINICAL INFORMATION: Fall? COMPARISON: None? TECHNIQUE: PA, lateral, and oblique views of the left hand. FINDINGS: The bones and soft tissues are normal. No fracture. Alignment is anatomic. Joint spaces are maintained. No erosions or soft tissue calcifications.? XR/XR hand LT 2V IMPRESSION: Normal left hand. Discharge Plan Discharge Clinical Impression: Contusion of finger of left hand Patient Disposition: Home, Self-Care Instructions: Contusion in Adults (ED) Additional Instructions: ice to the area Motrin as needed x-rays show no broken bones Prescriptions: New ibuprofen 600 mg tablet 600 mg PO Q8H PRN (Reason: pain) Qty: 20 0RF No Action metformin 500 mg tablet 500 mg PO BID 30 Days Qty: 60 2RF chlorpromazine 100 mg tablet 100 mg PO BID PRN (Reason: Anxiety) 0RF docusate sodium 100 mg capsule 100 mg PO BID 0RF chlorpromazine 50 mg tablet 50 mg PO TID 0RF quetiapine 400 mg tablet 800 mg PO BEDTIME 0RF guanfacine 4 mg tablet extended release 24 hr 4 mg PO BEDTIME 0RF polyethylene glycol 3350 [Miralax] 17 gram Powder In Packet 17 g PO BID 0RF melatonin 3 mg Tablet 3 mg PO BEDTIME 0RF divalproex 500 mg tablet,delayed release (DR/EC) 1,000 mg PO BID 0RF guanfacine 2 mg tablet 2 mg PO BEDTIME 0RF omega 9-akn-uys-fish oil [Fish Oil] 1,200 (144-216) mg Capsule 1 cap PO DAILY 0RF mupirocin 2 % ointment 1 appl topical BID Qty: 15 0RF guanfacine 4 mg tablet extended release 24 hr 1 tab PO DAILY 0RF quetiapine 400 mg tablet 400 mg PO BID 0RF ibuprofen 800 mg tablet 800 mg PO BID PRN0RF psyllium husk [Natural Fiber Laxative] 0.52 gram capsule 0 g PO 0RF (DME) blood pressure monitor [Blood Pressure Kit] Kit See Rx Instructions .ROUTE .MEDSUPPLY Qty: 1 0RF Rx Instructions: As directed benztropine 1 mg tablet 1 mg PO BID 0RF Referrals: Drew Schulz, [facility] [employer] [Primary Care Provider] - 2 days (as needed) Interventions: ED Discharge Assessment Last Done: 01/05/22 12:13 Discharge Date/Time: 01/05/22 12:04
== END 2022-01-05 12:04 | disposition home or self-care (01) ==
PROVIDERS: Emergency Provider Emergency Medicine; PCP Nurse Practitioner Family
DX: S60.042A Contusion of left ring finger without damage to nail, initial encounter (principal); M79.642 Pain in left hand; W00.0XXA Fall on same level due to ice and snow, initial encounter; Y93.9 Activity, unspecified; Y92.9 Unspecified place or not applicable; Y99.9 Unspecified external cause status; Z79.899 Other long term (current) drug therapy; F17.210 Nicotine dependence, cigarettes, uncomplicated; Z71.6 Tobacco abuse counseling
CPT/HCPCS: 73120; 99283

== ENCOUNTER 2022-03-01 17:21 | Emergency (ER) | payer MEDICAID, SELFPAY ==
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
[2022-03-01] MEDS: LORazepam 1 MG TABLET 2 MG PO (17:40)
[2022-03-01 17:48] VITALS: BP 150/100; PULSE 90; RESP 18; O2SAT 98; BMI 40.7
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
[2022-03-01] MEDS: HaloperidoL 5 MG TABLET PO (18:35)
[2022-03-01] MEDS: Haloperidol Lactate 5 MG/ML VIAL IM (18:53)
[2022-03-01 19:03] VITALS: RESP 16
[2022-03-01 19:18] VITALS: RESP 16
[2022-03-01 19:33] VITALS: RESP 16
[2022-03-01 20:12] LABS: MANUAL DIFF FLAG NO
[2022-03-01 20:20] LABS: Basophils Absolute Auto 0.1 X10*3/uL (0.0-0.2); Basophils Percent Auto 0.5 % (0-2); Eosinophils Absolute Auto 0.7 X10*3/uL (0.0-0.4); Eosinophils Percent Auto 6.6 % (0-4); Hematocrit 41.3 % (42.0-52.0); Hemoglobin 13.4 g/dl (14.0-18.0); Imm Gran Abs Auto 0.04 X10*3/uL (0.00-0.03); Imm Gran Pct Auto 0.4 % (0.0-0.4); Lymphocytes Absolute Auto 4.4 X10*3/uL (1.2-4.9); Lymphocytes Percent Auto 41.7 % (20-40); Mean Corpuscular HGB Conc 32.4 g/dl (31.0-36.0); Mean Corpuscular Hemoglobin 30.2 pg (27.0-33.0); Mean Platelet Volume 10.3 fL (9.4-12.4); Monocytes Percent Auto 9.8 % (2-11); Neutrophils Absolute Auto 4.3 x10*3/uL (2.0-8.3); Platelet Count 212 X10*3/uL (160-400); Red Blood Count 4.44 X10*6/uL (4.60-5.80); Red Cell Distribution Width 14.3 % (11.0-16.0); White Blood Count 10.6 X10*3/uL (4.8-10.8)
[2022-03-01 20:26] LABS: Anion Gap 13 (12-20); Blood Urea Nitrogen 15 mg/dL (9-16); Calcium 9.7 mg/dL (8.4-10.2); Carbon Dioxide 25 mmol/L (22-29); Chloride 105 mmol/L (96-108); Creatinine Clr Calc Pharmacy 187.4; Estimated Glomerular Filt Rate > 60; Glucose Random 103 mg/dL (60-115); Potassium 4.8 mmol/L (3.3-5.1); Sodium 138 mmol/L (135-145)
[2022-03-01 20:29] LABS: COVID-19 Test Negative (Negative); IDNOW Serial# 55D5AD1C
[2022-03-01 20:33] LABS: Valproate 74.5 mcg/mL (50.0-100.0)
[2022-03-01] MEDS: chlorproMAZINE HCl 25 MG TABLET 75 MG PO (20:51)
[2022-03-01] MEDS: QUEtiapine Fumarate 400 MG TABLET 800 MG PO (20:52)
[2022-03-01] MEDS: Docusate Sodium 100 MG CAPSULE PO (20:52)
[2022-03-01] MEDS: Divalproex Sodium 500 MG TABLET.DR 1000 MG PO (20:52)
[2022-03-01] MEDS: Melatonin 3 MG TABLET PO (20:52)
[2022-03-01] MEDS: polyethylene glycoL 3350 17 GM POWD.PACK PO (20:53)
[2022-03-01] MEDS: metFORMIN HCl 500 MG TABLET PO (20:53)
--- NOTE | 2022-03-02 06:43 | PC.NURSE ---
Patient slept through the night, no distress observed/reported, medication compliant, BHN assessed the patient disposition is to discharge back to half-way, care team will coordinate the discharge, will continue to monitor.
[2022-03-02 06:45] VITALS: BP 106/56; PULSE 75; RESP 18; O2SAT 95
--- NOTE | 2022-03-02 07:26 | PC.NURSE ---
Pt sleeping at this time, resp reg and even, skin wd, NAD. Awaiting dispo plan.
--- NOTE | 2022-03-02 09:18 | MHC.CARE ---
CARE Team spoke with Daylin Ngo ([phone]), [employer], to coordinate [facility]. [facility] will arrange transportation likely within the next hour, she will alert the prison staff. Provider updated and in agreement with plan.
--- NOTE | 2022-03-02 09:55 | PC.NURSE ---
Plan for pt to go back to his retirement. Transportation being arranged at this time.
== END 2022-03-02 10:31 | disposition home or self-care (01) ==
PROVIDERS: Emergency Provider Internal Medicine
DX: F91.1 Conduct disorder, childhood-onset type (principal); R45.6 Violent behavior; R45.1 Restlessness and agitation; F43.20 Adjustment disorder, unspecified; F89 Unspecified disorder of psychological development; Q98.5 Karyotype 47, XYY; F17.200 Nicotine dependence, unspecified, uncomplicated; Z20.822 Contact with and (suspected) exposure to COVID-19; Z79.899 Other long term (current) drug therapy
CPT/HCPCS: 36415; 80048; 80164; 85025; 87635; 96372; 99284; 99285

== ENCOUNTER 2022-03-19 21:18 | Emergency (ER) | payer MEDICAID, SELFPAY ==
--- NOTE | ~2022-03-19 | CT_ITS ---
EXAMINATION: CT HEAD WITHOUT CONTRAST CLINICAL INFORMATION: fall head strike ? LOC hit RT side of head COMPARISON: CT head 09/14/2021 TECHNIQUE: Contiguous axial imaging was performed from the skull base to vertex without intravenous administration of contrast. Coronal and sagittal reformatted images are performed at the CT scanner. [This CT examination was performed using dose optimization techniques as appropriate, variously including the following: *Automated exposure control *Adjustment of mA and/or kV according to patient size (this includes techniques or standardized protocols for targeted exams where dose is matched to indication/reason for exam; i.e. extremities or head) *Use of iterative reconstruction technique] DLP: 970 mGy-cm. FINDINGS: There is no evidence of acute intracranial hemorrhage or territorial infarction. No abnormal mass-effect or midline shift is seen. Katz to white matter differentiation is well preserved. No extra-axial fluid collections are identified. The ventricles are normal in size. There is no abnormal attenuation within the brain parenchyma. 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 There is no osseous abnormality. The mastoid air cells and visualized portions of the paranasal sinuses are well-aerated. CT/CT head/brain wo con IMPRESSION: No acute intracranial pathology.
[2022-03-19 21:29] VITALS: BP 148/98; PULSE 103; RESP 16; TEMP 36.9; O2SAT 98; BMI 46.4
[2022-03-19] MEDS: Acetaminophen 325 MG TABLET 650 MG PO (22:08)
--- NOTE | 2022-03-19 23:11 | ED.FALL ---
HPI - Fall General Chief Complaint: Fall Stated Complaint: psych eval Time Seen by Provider: 03/19/22 23:09 Source: patient Mode of arrival: ambulatory Limitations: other (Patient poor historian) History of Present Illness HPI Narrative: 21-year-old male past medical history significant for XXY syndrome, developmental disability,? presenting to the emergency department with complaints of headache status post trip and fall with head strike. According to patient he was walking, tripped, hit his head he is unsure if he lost consciousness. This was not a witnessed fall. Patient now complains of a diffuse headache without dizziness, vision changes. He is not on blood thinners. He ambulated into the emergency department with a steady gait. He denies any neck pain, chest pain, shortness of breath, vision changes, dizziness, disequilibrium, abdominal pain, weakness. MD complaint: fall Onset (ago): hour(s) (1) Fall from: standing Fall witnessed: no Place fall occurred: home (detention ) Loss of consciousness: unsure Prolonged down time: no Symptoms prior to fall: none Context: tripped/slipped Location of injury: head Severity: mild Quality: aching Associated symptoms (after fall): headache Related Data Home Medications Medication Instructions Recorded Confirmed blood pressure monitor (Blood #1 ea 11/13/20 07/07/21 Pressure Kit) divalproex 500 mg tablet,delayed 1,000 mg PO BID 11/17/21 03/01/22 release guanfacine 4 mg tablet,extended 4 mg PO BEDTIME 11/17/21 03/01/22 release 24 hr melatonin 3 mg tablet 3 mg PO BEDTIME 11/17/21 03/01/22 omega 7-kpt-shx-fish oil 1,200 mg 1 cap PO DAILY 11/17/21 03/01/22 (144 mg-216 mg) capsule (Fish Oil) polyethylene glycol 3350 17 gram 17 g PO BID 11/17/21 03/01/22 oral powder packet (Miralax) quetiapine 400 mg tablet 800 mg PO BEDTIME 11/17/21 03/01/22 ibuprofen 800 mg tablet 800 mg PO BID PRN 11/26/21 03/01/22 chlorpromazine 100 mg tablet 100 mg PO BID PRN 03/01/22 03/01/22 chlorpromazine 25 mg tablet 75 mg PO TID 03/01/22 03/01/22 metformin 500 mg tablet 500 mg PO BID 03/01/22 03/01/22 propranolol 60 mg capsule,24 1 cap PO DAILY 03/01/22 03/01/22 hr,extended release Previous Rx's Medication Instructions Recorded docusate sodium 100 mg capsule 100 mg PO BID 90 Days #180 cap 03/15/22 Allergies Allergy/AdvReac Type Severity Reaction Status Date / Time methylphenidate Allergy Unknown UNKNOWN Verified 03/19/22 21:32 [From RITALIN] shrimp [SHRIMP] Allergy Unknown HIVES Verified 03/19/22 21:32 haloperidol [From Haldol] Allergy Involuntary Verified 03/19/22 21:32 Spasms Review of Systems Review of Systems: Constitutional : No Weight loss, No Fever, No Chills, No Fatigue, No Malaise ENT/Mouth : No sore throat, No Rhinorrhea Eyes: No Eye Pain, No Swelling, No Redness Cardiovascular : No Chest Pain, No SOB, No Dyspnea on Exertion, No Orthopnea, No Edema, No Palpitations Respiratory : No Cough, No Sputum, No Wheezing Gastrointestinal : No Nausea, No Vomiting, No Diarrhea, No Constipation, No abdominal Pain, No Hematochezia, No Melena Genitourinary : No Dysuria, No Urinary Frequency, No Hematuria, Musculoskeletal : No joint pain, No Myalgias, No Joint Swelling Skin : No Skin Lesions, No rash Neuro : No Weakness, No Numbness, No Dizziness, + Headache Psych : No Anxiety/Panic, No Depression All other systems reviewed and are negative Yes all other systems are reviewed and are negative [facility] Past Medical History Attestation statement: The following information was validated with the patient. Source: old records reviewed and nursing notes reviewed Medical History Adjustment disorder Chronic abdominal pain Developmental disability Dyspnea Seborrheic dermatitis Seizures XXYY syndrome Surgical History History of testicular surgery Family History Family History Father No problems noted. Mother Hypertension Diabetes Other History of brain cancer Social History Social History Housing: Assisted Living Facility Alcohol intake: never Patient Tobacco Use Status: Current everyday Tobacco user Tobacco use type: Cigarette Years Smoked: 16 years old e-Cigarette/Vaping Use: Currently Using Substance Use Type: Crack/Cocaine and Marijuana Advance Directives: No Advance Directives Information Provided: No service: No Current occupational status: disabled Physical Exam Vital Signs: Vital Signs: Last Vital Signs Temp 98.5 F 03/19/22 21:29 Pulse 103 H 03/19/22 21:29 Resp 16 03/19/22 21:29 BP 148/98 H 03/19/22 21:29 Pulse Ox 98 03/19/22 21:29 BMI result Body Mass Index 46.4 VSS Appearance: Alert.? Oriented X3.? No acute distress.? Head: Normocephalic, atraumatic, no step-offs or deformities Eyes: Pupils equal, round and reactive to light.? Extraocular movements intact ENT: Pharynx normal.? Neck: Normal inspection.? Neck supple.? CVS: Normal heart rate and rhythm.? Pulses normal.? Respiratory: No respiratory distress.? Breath sounds normal.? Abdomen: Soft and nontender.? Skin: Skin warm and dry.? Normal skin color.? Normal skin turgor.? Extremities: No lower extremity edema.? No calf ttp. 5/5 strength to bilateral upper and lower extremities Back: No midline tenderness, no C-spine tenderness, full range of motion, no CVA tenderness bilaterally Neuro: Oriented X 3.? No motor deficit.? No sensory deficit. CN 2-12 intact . Steady tandem gait, normal [id number], [id number]. Course Reevaluation(s) Reevaluation #1: Patient's headache improved with Tylenol. Neuro exam remains nonfocal. CT of the head and brain with no acute findings. Patient appears well. Vital signs stable. Ambulating with steady gait. At this time patient will be discharged back to the detention as he has been medically cleared Time: 23:53 MDM - Fall MDM Narrative Medical decision making narrative: 2310 21 yo m presents s/p trip and fall w/ head strike unsure if loc not on thinners. Pe benign, non focal neuro exam. Ambulating with steady gait. Plan- ct head. I do not suspect ICH or posterior infarct. Patient appears well, neuro exam nonfocal. Medical Records Attestation: I reviewed the patient's medical records. Lab Data Attestation: I reviewed the patient's lab results. Critical Care Time Critical Care Time Critical Care Time: No Discharge Plan Discharge Clinical Impression: Concussion, Fall Patient Disposition: Home, Self-Care Instructions: Concussion (ED), Post Concussion Syndrome (ED), Fall Prevention (ED) Additional Instructions: Take your medications as prescribed. If you were prescribed antibiotics today, it is important that you take your medication to their entirety, do not skip any doses, do not finish them early. Follow-up with your primary care provider this week. Return to the emergency department with new or worsening symptoms. Such as fevers, chills, chest pain, shortness of breath, nausea, vomiting, dizziness, headache, vision changes, lethargy, altered mentation, seizures In case of emergency call 911 You can take ibuprofen every 6 hours, Tylenol every 4 as needed for headache. CT/CT head/brain wo con IMPRESSION: No acute intracranial pathology. ? Prescriptions: No Action docusate sodium 100 mg capsule 100 mg PO BID 90 Days Qty: 180 0RF chlorpromazine 100 mg tablet 100 mg PO BID PRN (Reason: Anxiety) 0RF metformin 500 mg tablet 500 mg PO BID 0RF chlorpromazine 25 mg Tablet 75 mg PO TID 0RF propranolol 60 mg capsule,extended release 24 hr 1 cap PO DAILY 0RF quetiapine 400 mg tablet 800 mg PO BEDTIME 0RF guanfacine 4 mg tablet extended release 24 hr 4 mg PO BEDTIME 0RF polyethylene glycol 3350 [Miralax] 17 gram Powder In Packet 17 g PO BID 0RF melatonin 3 mg Tablet 3 mg PO BEDTIME 0RF divalproex 500 mg tablet,delayed release (DR/EC) 1,000 mg PO BID 0RF omega 3-qhy-exb-fish oil [Fish Oil] 1,200 (144-216) mg Capsule 1 cap PO DAILY 0RF ibuprofen 800 mg tablet 800 mg PO BID PRN (Reason: Pain) 0RF (DME) blood pressure monitor [Blood Pressure Kit] Kit See Rx Instructions .ROUTE .MEDSUPPLY Qty: 1 0RF Rx Instructions: As directed Referrals: Drew Schulz, NUCLEAR EQUIPMENT OPERATOR-BC [Primary Care Provider] - 3 days Stand Alone Forms: Work/School Release
[2022-03-20] VITALS: PULSE 100; RESP 17; O2SAT 98
== END 2022-03-20 00:20 | disposition home or self-care (01) ==
PROVIDERS: Emergency Provider Internal Medicine; PCP Nurse Practitioner Family
DX: S06.0X9A Concussion with loss of consciousness of unspecified duration, initial encounter (principal); G44.309 Post-traumatic headache, unspecified, not intractable; F14.90 Cocaine use, unspecified, uncomplicated; F12.90 Cannabis use, unspecified, uncomplicated; W01.0XXA Fall on same level from slipping, tripping and stumbling without subsequent striking against object, initial encounter; Y93.9 Activity, unspecified; Y92.009 Unspecified place in unspecified non-institutional (private) residence as the place of occurrence of the external cause; Y99.9 Unspecified external cause status; Z79.899 Other long term (current) drug therapy
CPT/HCPCS: 70450; 99284

== ENCOUNTER 2022-03-21 16:30 | Emergency (ER) | payer MEDICAID, SELFPAY ==
--- NOTE | ~2022-03-21 | XR_ITS ---
EXAMINATION: XR HAND, LEFT CLINICAL INFORMATION: Punched wall. Evaluate for fracture. COMPARISON: Radiograph of the left hand dated from 01/05/2020. TECHNIQUE: PA, lateral, and oblique views of the left hand. FINDINGS: No acute fractures or malalignment. Mild soft tissue swelling. No unexpected radiopaque foreign bodies. XR/XR hand LT 2V IMPRESSION: No acute osseous abnormalities. No radiopaque foreign bodies.
[2022-03-21 17:06] VITALS: RESP 18; BMI 38.2
--- NOTE | 2022-03-21 17:14 | MHC.CARE ---
CARE team engaged pt in conversation while he was waiting in the pod for transfer to the main ED for an xray and medical clearance prior to returning to his halfway. Pt reported that he became upset after having a negative peer interaction and punched a wall. He complained of hand pain and was sent to the hospital for treatment. Given pt's history, he was put in the pod on arrival. Pt became agitated after being brought into the pod and had required security, technical support specialist, and an ED provider to redirect pt. He was able to express that he was angry that he was put into the pod when he wasn't in crisis and apologized to staff that he had threatened and postured at. Pt denied SI/HI/AVH and did not present with any acute symptoms of psychosis. He was able to regulate his emotions and behaviors quickly and did not escalate into a full state of crisis. This resume writer advocated for pt to be moved to the main ED. Pt will not require any further behavioral health evaluation during this ED visit.
--- NOTE | 2022-03-21 18:08 | PC.NURSE ---
this insurance underwriter assumed care of this pt from the pod after pt punched the wall with left hand. xray negative.
[2022-03-21 18:18] VITALS: BP 125/76; PULSE 95; RESP 16; TEMP 36.6; O2SAT 95
--- NOTE | 2022-03-21 18:31 | ED.EXTPRO ---
HPI - Extremity Problem General Chief complaint: Extremity Injury, Upper Stated complaint: L HAND PAIN S/P HITTING WALL Time Seen by Provider: 03/21/22 17:00 Source: patient Mode of arrival: ambulatory Limitations: no limitations History of Present Illness HPI Narrative: 21-year-old male with past medical history of developmental disability, adjustment disorder, pseudo-seizure, presents to the ED for left hand pain. Patient was angry and punched a wall with his left hand earlier today at skilled nursing. longterm and patient denies any other trauma. Patient denies any other complaints. Related Data Home Medications Medication Instructions Recorded Confirmed blood pressure monitor (Blood #1 ea 11/13/20 07/07/21 Pressure Kit) divalproex 500 mg tablet,delayed 1,000 mg PO BID 11/17/21 03/01/22 release guanfacine 4 mg tablet,extended 4 mg PO BEDTIME 11/17/21 03/01/22 release 24 hr melatonin 3 mg tablet 3 mg PO BEDTIME 11/17/21 03/01/22 omega 2-ttr-hqg-fish oil 1,200 mg 1 cap PO DAILY 11/17/21 03/01/22 (144 mg-216 mg) capsule (Fish Oil) polyethylene glycol 3350 17 gram 17 g PO BID 11/17/21 03/01/22 oral powder packet (Miralax) quetiapine 400 mg tablet 800 mg PO BEDTIME 11/17/21 03/01/22 ibuprofen 800 mg tablet 800 mg PO BID PRN 11/26/21 03/01/22 chlorpromazine 100 mg tablet 100 mg PO BID PRN 03/01/22 03/01/22 chlorpromazine 25 mg tablet 75 mg PO TID 03/01/22 03/01/22 metformin 500 mg tablet 500 mg PO BID 03/01/22 03/01/22 propranolol 60 mg capsule,24 1 cap PO DAILY 03/01/22 03/01/22 hr,extended release Previous Rx's Medication Instructions Recorded docusate sodium 100 mg capsule 100 mg PO BID 90 Days #180 cap 03/15/22 Allergies Allergy/AdvReac Type Severity Reaction Status Date / Time methylphenidate Allergy Unknown UNKNOWN Verified 03/19/22 21:32 [From RITALIN] shrimp [SHRIMP] Allergy Unknown HIVES Verified 03/19/22 21:32 haloperidol [From Haldol] Allergy Involuntary Verified 03/19/22 21:32 Spasms Review of Systems Review of Systems: left hand pain Yes all other systems are reviewed and are negative [facility] Past Medical History Medical History Adjustment disorder Chronic abdominal pain Developmental disability Dyspnea Seborrheic dermatitis Seizures XXYY syndrome Surgical History History of testicular surgery Family History Family History Father No problems noted. Mother Hypertension Diabetes Other History of brain cancer Social History Social History Housing: Assisted Living Facility Alcohol intake: never Patient Tobacco Use Status: Current everyday Tobacco user Tobacco use type: Cigarette Years Smoked: 16 years old e-Cigarette/Vaping Use: Currently Using Substance Use Type: Crack/Cocaine and Marijuana Advance Directives: No Advance Directives Information Provided: No service: No Current occupational status: disabled Physical Exam Vital Signs: Vital Signs: Last Vital Signs Temp 98.1 F 03/21/22 19:57 Pulse 66 03/21/22 19:57 Resp 18 03/21/22 19:57 BP 141/77 H 03/21/22 19:57 Pulse Ox 98 03/21/22 19:57 BMI result Body Mass Index 38.2 Const: General: cooperative, healthy appearing, comfortable, no acute distress, well developed, alert and awake Orientation/consciousness: patient oriented x3 HEENT: Head: Yes normal to inspection, Yes No palpable skull fracture present, Yes normocephalic, Yes atraumatic and No abrasion Eyes: General: appearance normal, both eyes and all related structures Neck: Neck: Yes normal visual inspection, Yes full ROM, Yes no lymphadenopathy, Yes no meningeal signs, Yes trachea midline, Yes supple, No anterior neck swelling and No tender Chest: Chest palpation & inspection: normal inspection of the chest and normal palpation of entire chest wall Resp: Effort & Inspection: normal respiratory effort and able to speak in complete sentences Auscultation: clear to auscultation bilaterally Cardio: Jugular venous distension: no JVD Heart sounds: S1 normal heart sound present and S2 normal heart sound present GI: Inspection: Yes normal to inspection and No abdominal wall ecchymosis Palpation (GI): Soft to palpation, not firm, nontender, no guarding and not rigid : General: No CVA tenderness and Yes no CVA tenderness Back/Spine/Pelvis: Back: no CVA tenderness, No CVA tenderness and No back tenderness Skin: General skin exam: no rashes or lesions noted and elasticity normal Neuro: General: patient oriented x3, gait normal, no meningeal signs and CN's II-XI intact bilaterally Cranial nerves: Yes CN's II-XII intact bilaterally Extrem: General: Yes normal to inspection and Yes full ROM Hand/finger images: 1. Positive for tenderness on palpation. Negative for obvious deformity or ecchymosis. Radial pulses intact. Capillary refill to all fingers intact. Patient able to move fingers. Negative any signs of nerve/tendon injury. Motor/neuro/vascular exam intact. Psych: Appearance: grossly normal, well kempt and not disheveled Course Course Course Narrative: Patient sent for x-ray. Reevaluation(s) Reevaluation #1: X-ray negative for fracture. Patient given Motrin and placed in Blaze wrap Time: 18:43 MDM - Extremity (Nontraumatic) MDM Narrative Medical decision making narrative: contusion Discharge Plan Discharge Clinical Impression: Contusion of hand Patient Disposition: Home, Self-Care Instructions: Contusion in Adults (ED) Additional Instructions: You can take Motrin and Tylenol for pain relief. Recommend ice and rest and elevation of extremity. Return to the ED for increased swelling, pain, bluish black discoloration, redness, fever, chills, or any other concerning symptoms. Prescriptions: No Action docusate sodium 100 mg capsule 100 mg PO BID 90 Days Qty: 180 0RF chlorpromazine 100 mg tablet 100 mg PO BID PRN (Reason: Anxiety) 0RF metformin 500 mg tablet 500 mg PO BID 0RF chlorpromazine 25 mg Tablet 75 mg PO TID 0RF propranolol 60 mg capsule,extended release 24 hr 1 cap PO DAILY 0RF quetiapine 400 mg tablet 800 mg PO BEDTIME 0RF guanfacine 4 mg tablet extended release 24 hr 4 mg PO BEDTIME 0RF polyethylene glycol 3350 [Miralax] 17 gram Powder In Packet 17 g PO BID 0RF melatonin 3 mg Tablet 3 mg PO BEDTIME 0RF divalproex 500 mg tablet,delayed release (DR/EC) 1,000 mg PO BID 0RF omega 1-wvi-ypo-fish oil [Fish Oil] 1,200 (144-216) mg Capsule 1 cap PO DAILY 0RF ibuprofen 800 mg tablet 800 mg PO BID PRN (Reason: Pain) 0RF (DME) blood pressure monitor [Blood Pressure Kit] Kit See Rx Instructions .ROUTE .MEDSUPPLY Qty: 1 0RF Rx Instructions: As directed Interventions: ED Discharge Assessment Last Done: 03/21/22 19:58 Discharge Date/Time: 03/21/22 20:01 Print Language: Malian
[2022-03-21] MEDS: Ibuprofen 800 MG TABLET PO (18:56)
[2022-03-21 19:57] VITALS: BP 141/77; PULSE 66; RESP 18; TEMP 36.7; O2SAT 98
== END 2022-03-21 20:01 | disposition home or self-care (01) ==
PROVIDERS: Emergency Provider Internal Medicine; PCP Nurse Practitioner Family
DX: S60.222A Contusion of left hand, initial encounter (principal); F14.90 Cocaine use, unspecified, uncomplicated; F12.90 Cannabis use, unspecified, uncomplicated; F17.210 Nicotine dependence, cigarettes, uncomplicated; X58.XXXA Exposure to other specified factors, initial encounter; Y93.9 Activity, unspecified; Y92.9 Unspecified place or not applicable; Y99.9 Unspecified external cause status; Z79.899 Other long term (current) drug therapy; Z71.6 Tobacco abuse counseling
CPT/HCPCS: 73120; 99283; 99284

== ENCOUNTER 2022-03-22 18:41 | Emergency (ER) | payer MEDICAID, SELFPAY ==
[2022-03-22 18:59] VITALS: BP 130/78; PULSE 88; RESP 16; TEMP 36.6; O2SAT 95
[2022-03-22 19:02] VITALS: BP 178/110; PULSE 89; O2SAT 98; BMI 49.4
[2022-03-22 19:55] LABS: MANUAL DIFF FLAG NO
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
[2022-03-22 19:57] LABS: Basophils Percent Auto 0.3 % (0-2); Eosinophils Absolute Auto 0.6 X10*3/uL (0.0-0.4); Eosinophils Percent Auto 6.6 % (0-4); Hematocrit 39.3 % (42.0-52.0); Imm Gran Abs Auto 0.02 X10*3/uL (0.00-0.03); Imm Gran Pct Auto 0.2 % (0.0-0.4); Lymphocytes Absolute Auto 3.9 X10*3/uL (1.2-4.9); Lymphocytes Percent Auto 44.5 % (20-40); Mean Corpuscular HGB Conc 33.1 g/dl (31.0-36.0); Mean Corpuscular Hemoglobin 30.3 pg (27.0-33.0); Mean Corpuscular Volume 91.6 fL (80.0-98.0); Mean Platelet Volume 9.7 fL (9.4-12.4); Monocytes Absolute Auto 0.9 X10*3/uL (0.1-1.2); Monocytes Percent Auto 10.4 % (2-11); Neutrophils Absolute Auto 3.4 x10*3/uL (2.0-8.3); Platelet Count 194 X10*3/uL (160-400); Red Blood Count 4.29 X10*6/uL (4.60-5.80); Red Cell Distribution Width 14.2 % (11.0-16.0); White Blood Count 8.8 X10*3/uL (4.8-10.8)
[2022-03-22 20:08] LABS: Ethanol < 10 mg/dL
[2022-03-22 20:11] LABS: Alanine Aminotransferase 56 U/L (0-40); Albumin Level 3.9 g/dL (3.5-5.0); Alkaline Phosphatase 96 U/L (39-117); Anion Gap 12 (12-20); Aspartate Amino Transferase 42 U/L (5-37); Bilirubin Total 0.3 mg/dL (0.0-1.0); Blood Urea Nitrogen 16 mg/dL (9-16); Calcium 9.4 mg/dL (8.4-10.2); Carbon Dioxide 26 mmol/L (22-29); Chloride 104 mmol/L (96-108); Creatinine Clr Calc Pharmacy 209.1; Estimated Glomerular Filt Rate > 60; Glucose Random 123 mg/dL (60-115); Potassium 4.2 mmol/L (3.3-5.1); Sodium 138 mmol/L (135-145); Total Protein 7.6 g/dL (6.5-8.0)
[2022-03-22 20:16] LABS: Valproate 75.9 mcg/mL (50.0-100.0)
[2022-03-22] MEDS: Haloperidol Lactate 5 MG/ML VIAL IM (21:54)
[2022-03-22] MEDS: diphenhydrAMINE HCL 50 MG/ML VIAL IM (21:54)
--- NOTE | 2022-03-22 21:55 | PC.NURSE ---
Pt was becoming aggressive with staff members and Jose Matt CNA ordered 50 mg of Benadryl and 5 mg haldol IM, which was given.
--- NOTE | 2022-03-22 22:51 | PC.NURSE ---
Pt asked for more haldol to be administered, but Jose TIERNEY said the pt could not have more at this time. Pt said okay, I'm going to get mad and stood up and started to walk away from his room. Security was called and is monitoring and deescalting pt at bedside at the moment.
[2022-03-22] MEDS: OLANZapine 10 MG VIAL IM (22:57)
[2022-03-23] VITALS: BP 130/89; PULSE 90; RESP 18; O2SAT 94
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
--- NOTE | 2022-03-23 02:17 | PC.NURSE ---
Pt slept for about an hour and is now awake, pt was given a snack colt Alvarez chargemaster analyst nurse. Will continue to monitor.
[2022-03-23 02:21] VITALS: BP 106/66; PULSE 93; RESP 17; TEMP 37.1; O2SAT 94
[2022-03-23] MEDS: LORazepam 1 MG TABLET 2 MG PO (02:44)
--- NOTE | 2022-03-23 02:56 | PC.NURSE ---
Pt given ativan to help him sleep per Dr. Escobar
[2022-03-23 03:54] LABS: Appearance Urine CLEAR; Color Urine YELLOW; Glucose Urine UA NEG (NEG); Leukocyte Esterase Urine NEG (NEG); Nitrite Urine NEG (NEG); PH 6.5 (5.0-8.0); Urine Blood NEG (NEG); Urine Ketones NEG (NEG); Urine Protein NEG (NEG-TRACE)
[2022-03-23 04:13] LABS: Amphetamine Screen Urine Not Detected (Not Detect); Barbiturates, Urine Not Detected (Not Detect); Benzodiazepines Screen Urine Not Detected (Not Detect); Cannabinoid Screen Urine Not Detected (Not Detect); Cocaine Screen Urine Not Detected (Not Detect); Fentanyl, urine Not Detected (Not Detect); Opiate Screen Urine Not Detected (Not Detect); Phencyclidine Screen Urine Not Detected (Not Detect)
[2022-03-23 04:15] VITALS: PULSE 99; RESP 16; O2SAT 95
[2022-03-23 07:20] VITALS: BP 90/55; PULSE 88; RESP 20; O2SAT 92
[2022-03-23 11:47] VITALS: BP 96/62
--- NOTE | 2022-03-23 12:46 | MHC.CARE ---
CARE Team met with pt as a follow up to yesterday evening?s risk screening.? Pt denies HI, SI, , and self-harm urges.? He stated that he wants to return home.? Pt stated that he is pleased with his finding a permanent residence.? He declined to speak further regarding the topic and appeared to grow irritated when the topic was discussed. Plan is for pt to be discharged back to the longterm/respite.? This plan was discussed with and agreed upon by CARE [employer] Operator Joseph NOONAN and ED provider Joseph Esteban. half-way was contacted regarding the disposition.? Transportations will be secured for pt.
== END 2022-03-23 12:15 ==
PROVIDERS: Physician Assistant; Emergency Provider Emergency Medicine; PCP Nurse Practitioner Family
DX: R56.9 Unspecified convulsions (principal); F43.20 Adjustment disorder, unspecified; F17.210 Nicotine dependence, cigarettes, uncomplicated; Z71.6 Tobacco abuse counseling; Z79.899 Other long term (current) drug therapy
CPT/HCPCS: 36415; 80053; 80164; 80307; 81003; 82077; 85025; 96372; 99284; 99285; J1200

== ENCOUNTER 2022-03-25 10:51 | Outpatient (REF) | payer MEDICAID, SELFPAY ==
[2022-03-25 13:53] LABS: MANUAL DIFF FLAG NO
[2022-03-25 14:02] LABS: Basophils Percent Auto 0.5 % (0-2); Eosinophils Absolute Auto 0.6 X10*3/uL (0.0-0.4); Eosinophils Percent Auto 7.1 % (0-4); Hematocrit 42.2 % (42.0-52.0); Hemoglobin 13.8 g/dl (14.0-18.0); Imm Gran Abs Auto 0.02 X10*3/uL (0.00-0.03); Imm Gran Pct Auto 0.3 % (0.0-0.4); Lymphocytes Absolute Auto 3.4 X10*3/uL (1.2-4.9); Lymphocytes Percent Auto 43.8 % (20-40); Mean Corpuscular HGB Conc 32.7 g/dl (31.0-36.0); Mean Corpuscular Hemoglobin 30.2 pg (27.0-33.0); Mean Corpuscular Volume 92.3 fL (80.0-98.0); Mean Platelet Volume 10.2 fL (9.4-12.4); Monocytes Absolute Auto 0.7 X10*3/uL (0.1-1.2); Monocytes Percent Auto 8.4 % (2-11); Neutrophils Absolute Auto 3.1 x10*3/uL (2.0-8.3); Neutrophils Percent Auto 39.9 % (45-73); Platelet Count 236 X10*3/uL (160-400); Red Blood Count 4.57 X10*6/uL (4.60-5.80); Red Cell Distribution Width 14.2 % (11.0-16.0); White Blood Count 7.7 X10*3/uL (4.8-10.8)
[2022-03-25 14:15] LABS: Alanine Aminotransferase 61 U/L (0-40); Albumin Level 4.1 g/dL (3.5-5.0); Alkaline Phosphatase 104 U/L (39-117); Anion Gap 12 (12-20); Aspartate Amino Transferase 46 U/L (5-37); Bilirubin Total 0.4 mg/dL (0.0-1.0); Blood Urea Nitrogen 16 mg/dL (9-16); Calcium 9.9 mg/dL (8.4-10.2); Carbon Dioxide 26 mmol/L (22-29); Chloride 105 mmol/L (96-108); Cholesterol 274 mg/dL; Estimated Glomerular Filt Rate > 60; Glucose Random 99 mg/dL (60-115); HDL Cholesterol 29 mg/dL; LDL Cholesterol Calculated 180 mg/dl; Potassium 4.2 mmol/L (3.3-5.1); Sodium 139 mmol/L (135-145); Total Protein 8.1 g/dL (6.5-8.0); Triglycerides 327 mg/dL
[2022-03-25 14:34] LABS: Estimated Average Glucose 114 mg/dL; Hemoglobin A1c % 5.6 %
[2022-03-25 14:37] LABS: TSH reflex Free T4 2.36 uIU/mL (0.32-4.0)
[2022-03-25 15:33] LABS: Valproate 44.9 mcg/mL (50.0-100.0)
== END 2022-03-25 10:52 | disposition home or self-care (01) ==
LOC: HO.HMGCLDS 10:51
PROVIDERS: Visit Provider Psychiatry & Neurology Psychiatry
DX: F63.81 Intermittent explosive disorder (principal); Z79.899 Other long term (current) drug therapy
CPT/HCPCS: 36415; 80053; 80061; 80164; 83036; 84443; 85025

== ENCOUNTER 2022-03-25 13:43 | Emergency (ER) | payer MEDICAID, SELFPAY ==
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
[2022-03-25 13:50] VITALS: BP 152/110; PULSE 114; O2SAT 97
[2022-03-25 13:53] VITALS: BP 158/98; PULSE 119; RESP 18; TEMP 36.1; O2SAT 96; BMI 44.3
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
[2022-03-25] MEDS: LORazepam 1 MG TABLET 2 MG PO (14:28)
[2022-03-25] MEDS: Divalproex Sodium 500 MG TABLET.DR 1000 MG PO (14:28)
[2022-03-25] MEDS: Acetaminophen 325 MG TABLET 975 MG PO (14:29)
[2022-03-25 15:33] LABS: MANUAL DIFF FLAG NO
[2022-03-25 15:43] LABS: Basophils Percent Auto 0.4 % (0-2); Eosinophils Absolute Auto 0.5 X10*3/uL (0.0-0.4); Eosinophils Percent Auto 5.9 % (0-4); Hematocrit 39.9 % (42.0-52.0); Hemoglobin 13.1 g/dl (14.0-18.0); Imm Gran Abs Auto 0.02 X10*3/uL (0.00-0.03); Imm Gran Pct Auto 0.2 % (0.0-0.4); Lymphocytes Absolute Auto 3.3 X10*3/uL (1.2-4.9); Lymphocytes Percent Auto 39.1 % (20-40); Mean Corpuscular HGB Conc 32.8 g/dl (31.0-36.0); Mean Corpuscular Volume 91.5 fL (80.0-98.0); Mean Platelet Volume 9.7 fL (9.4-12.4); Monocytes Percent Auto 11.5 % (2-11); Neutrophils Absolute Auto 3.6 x10*3/uL (2.0-8.3); Neutrophils Percent Auto 42.9 % (45-73); Platelet Count 219 X10*3/uL (160-400); Red Blood Count 4.36 X10*6/uL (4.60-5.80); Red Cell Distribution Width 14.3 % (11.0-16.0); White Blood Count 8.3 X10*3/uL (4.8-10.8)
[2022-03-25 15:52] LABS: Alanine Aminotransferase 57 U/L (0-40); Albumin Level 3.9 g/dL (3.5-5.0); Alkaline Phosphatase 99 U/L (39-117); Anion Gap 11 (12-20); Aspartate Amino Transferase 42 U/L (5-37); Bilirubin Total 0.3 mg/dL (0.0-1.0); Blood Urea Nitrogen 16 mg/dL (9-16); Calcium 9.5 mg/dL (8.4-10.2); Carbon Dioxide 25 mmol/L (22-29); Chloride 107 mmol/L (96-108); Creatinine Clr Calc Pharmacy 216.6; Estimated Glomerular Filt Rate > 60; Glucose Random 123 mg/dL (60-115); Sodium 139 mmol/L (135-145); Total Protein 7.6 g/dL (6.5-8.0)
[2022-03-25 15:58] VITALS: BP 145/87; PULSE 109; RESP 18; O2SAT 95
[2022-03-25 16:03] LABS: Valproate 38.6 mcg/mL (50.0-100.0)
[2022-03-25] MEDS: diphenhydrAMINE HCL 25 MG TABLET 50 MG PO (16:40)
[2022-03-25] MEDS: HaloperidoL 5 MG TABLET PO (16:40)
--- NOTE | 2022-03-25 16:44 | PC.NURSE ---
called the care home for a ride back home will arrange transport back
== END 2022-03-25 19:16 | disposition home or self-care (01) ==
PROVIDERS: Physician Assistant; Emergency Provider Emergency Medicine; PCP Nurse Practitioner Family
DX: M25.532 Pain in left wrist (principal); R56.9 Unspecified convulsions; S00.93XA Contusion of unspecified part of head, initial encounter; Q98.0 Klinefelter syndrome karyotype 47, XXY; X58.XXXA Exposure to other specified factors, initial encounter; Y93.9 Activity, unspecified; Y92.9 Unspecified place or not applicable; Y99.9 Unspecified external cause status
CPT/HCPCS: 36415; 70450; 73110; 73130; 80053; 80164; 85025; 99284; Q0163

== ENCOUNTER 2022-03-27 09:15 | Emergency (ER) | payer MEDICAID, SELFPAY ==
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
[2022-03-27 09:28] VITALS: BP 137/97; PULSE 122; RESP 18; TEMP 36.7; O2SAT 99; BMI 41.5
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
== END 2022-03-27 10:35 | disposition left against medical advice (07) ==
PROVIDERS: Emergency Provider Emergency Medicine; PCP Nurse Practitioner Family
DX: S60.512A Abrasion of left hand, initial encounter (principal); W22.09XA Striking against other stationary object, initial encounter; Y93.9 Activity, unspecified; Y92.9 Unspecified place or not applicable; Y99.9 Unspecified external cause status; Z20.822 Contact with and (suspected) exposure to COVID-19; Z79.899 Other long term (current) drug therapy
CPT/HCPCS: 36415; 73130; 80048; 80076; 85025; 87635; 96372; 99283; 99285; J1200; J2060; Q0163

== ENCOUNTER 2022-03-27 11:21 | Emergency (ER) | payer MEDICAID, SELFPAY ==
[2022-03-27 11:28] VITALS: PULSE 140; RESP 20; O2SAT 97; BMI 42.7
[2022-03-27] MEDS: LORazepam 1 MG TABLET 2 MG PO ×2 (11:52→15:35)
[2022-03-27] MEDS: diphenhydrAMINE HCL 25 MG TABLET 50 MG PO (11:52)
--- NOTE | 2022-03-27 11:56 | ED.PSYCH ---
HPI - Psych General Chief Complaint: Psychiatric Symptoms Stated Complaint: Crisis Eval Time Seen by Provider: 03/27/22 11:46 Source: patient Mode of arrival: ambulatory Limitations: no limitations History of Present Illness MD complaint: anxiety and other (angry ) Onset (ago): minute(s) Duration: constant History of same: Yes Relieving factors: none Exacerbating factors: other Associated psychiatric symptoms: none Associated symptoms: denies other symptoms Treatments prior to arrival: none Related Data Home Medications Medication Instructions Recorded Confirmed blood pressure monitor (Blood #1 ea 11/13/20 07/07/21 Pressure Kit) divalproex 500 mg tablet,delayed 1,000 mg PO BID 11/17/21 03/23/22 release guanfacine 4 mg tablet,extended 4 mg PO BEDTIME 11/17/21 03/23/22 release 24 hr melatonin 3 mg tablet 3 mg PO BEDTIME 11/17/21 03/23/22 omega 3-fwp-cmm-fish oil 1,200 mg 1 cap PO DAILY 11/17/21 03/23/22 (144 mg-216 mg) capsule (Fish Oil) polyethylene glycol 3350 17 gram 17 g PO BID 11/17/21 03/23/22 oral powder packet (Miralax) quetiapine 400 mg tablet 800 mg PO BEDTIME 11/17/21 03/23/22 chlorpromazine 100 mg tablet 100 mg PO BID PRN 03/01/22 03/23/22 chlorpromazine 25 mg tablet 75 mg PO TID 03/01/22 03/23/22 metformin 500 mg tablet 500 mg PO BID 03/01/22 03/23/22 propranolol 60 mg capsule,24 1 cap PO DAILY 03/01/22 03/23/22 hr,extended release ibuprofen 600 mg tablet 1 tab PO Q6H PRN 03/23/22 03/23/22 Previous Rx's Medication Instructions Recorded docusate sodium 100 mg capsule 100 mg PO BID 90 Days #180 cap 03/15/22 Allergies Allergy/AdvReac Type Severity Reaction Status Date / Time methylphenidate Allergy Unknown UNKNOWN Verified 03/19/22 21:32 [From RITALIN] shrimp [SHRIMP] Allergy Unknown HIVES Verified 03/19/22 21:32 haloperidol [From Haldol] Allergy Involuntary Verified 03/19/22 21:32 Spasms Review of Systems Review of Systems: Constitutional : No Fever, No Chills ENT/Mouth : No Ear Pain, No Nasal Congestion, No sore throat Eyes: No Eye Pain, No Swelling, No Redness Cardiovascular : No Chest Pain, No SOB Respiratory : No Cough, No Sputum, No Dyspnea Gastrointestinal : No Nausea, No Vomiting, No Diarrhea, No Hematochezia, No Melena Genitourinary : No Dysuria, No Urinary Frequency, No Hematuria Musculoskeletal : No Myalgias Skin : No Skin Lesions, No rash Neuro : No Weakness, No Numbness, No Paresthesias, No Dizziness, No Headache Psych : positive Anxiety, positive Depression, no SI/HI Heme/Lymph: No Lymphadenopathy Endocrine : No Polyuria, No Polydipsia All other systems reviewed and are negative [facility] Past Medical History Attestation statement: The following information was validated with the patient. Medical History Adjustment disorder Chronic abdominal pain Developmental disability Dyspnea Seborrheic dermatitis Seizures XXYY syndrome Surgical History History of testicular surgery Family History Family History Father No problems noted. Mother Hypertension Diabetes Other History of brain cancer Social History Social History Housing: Assisted Living Facility Alcohol intake: never Patient Tobacco Use Status: Current everyday Tobacco user Tobacco use type: Cigarette Years Smoked: 16 years old e-Cigarette/Vaping Use: Currently Using Substance Use Type: Crack/Cocaine and Marijuana Advance Directives: Yes Advance Directives Information Provided: Yes Advance Directives on File: No service: No Current occupational status: disabled Physical Exam Vital Signs: Vital Signs: Last Vital Signs Temp 98.7 F 03/27/22 15:29 Pulse 120 H 03/27/22 15:29 Resp 16 03/27/22 15:29 BP 138/86 03/27/22 15:29 Pulse Ox 97 03/27/22 15:29 BMI result Body Mass Index 42.7 Appearance: Alert. Oriented X3. No acute distress. Anxious initially gave triage and security a hard time but he came right back to the room with me Eyes: Pupils equal, round and reactive to light. ENT: Pharynx normal. Neck: Normal inspection. Neck supple. CVS: Normal heart rate and rhythm. Pulses normal. Respiratory: No respiratory distress. Breath sounds normal. Abdomen: Soft and non-tender. Skin: Skin warm and dry. Normal skin color. Normal skin turgor. Extremities: No lower extremity edema. No calf ttp abrasions on L hand Neuro: Oriented X 3. No motor deficit. No sensory deficit. CN2-12 intact Course Course Course Narrative: patient requesting PO medications for anxiety on arrival Physician observation started at 4pm Patient placed in physician observation because the patient needed more time for observation and clearance of his behaviors and hopefully he will regularly take his medications, [facility] states bed search S12 in place. At the time observation was started the patient's vitals were stable, patient is alert and oriented but slightly agitated, Neuro: nonfocal, CV RRR, Lungs clear MDM - Psych MDM Narrative Medical decision making narrative: 21 yo male well known to us here requesting to speak to someone from crisis will not elaborate why - refers to being upset at [facility]. Denies SI. PO medications as he requested Discharge Plan Discharge Clinical Impression: Aggression Patient Disposition: Still a Patient Prescriptions: No Action docusate sodium 100 mg capsule 100 mg PO BID 90 Days Qty: 180 0RF chlorpromazine 100 mg tablet 100 mg PO BID PRN (Reason: Anxiety) 0RF metformin 500 mg tablet 500 mg PO BID 0RF chlorpromazine 25 mg Tablet 75 mg PO TID 0RF propranolol 60 mg capsule,extended release 24 hr 1 cap PO DAILY 0RF ibuprofen 600 mg tablet 1 tab PO Q6H PRN (Reason: pain) 0RF quetiapine 400 mg tablet 800 mg PO BEDTIME 0RF guanfacine 4 mg tablet extended release 24 hr 4 mg PO BEDTIME 0RF polyethylene glycol 3350 [Miralax] 17 gram Powder In Packet 17 g PO BID 0RF melatonin 3 mg Tablet 3 mg PO BEDTIME 0RF divalproex 500 mg tablet,delayed release (DR/EC) 1,000 mg PO BID 0RF omega 5-mrb-vjp-fish oil [Fish Oil] 1,200 (144-216) mg Capsule 1 cap PO DAILY 0RF (DME) blood pressure monitor [Blood Pressure Kit] Kit See Rx Instructions .ROUTE .MEDSUPPLY Qty: 1 0RF Rx Instructions: As directed
[2022-03-27 13:45] VITALS: BP 108/54; PULSE 121; RESP 18; TEMP 36.5; O2SAT 97
--- NOTE | 2022-03-27 14:33 | PC.NURSE ---
[facility] at bedside
[2022-03-27 15:29] VITALS: BP 138/86; PULSE 120; RESP 16; TEMP 37.1; O2SAT 97
[2022-03-27 16:10] LABS: MANUAL DIFF FLAG NO
[2022-03-27 16:13] LABS: Basophils Percent Auto 0.3 % (0-2); Eosinophils Absolute Auto 0.4 X10*3/uL (0.0-0.4); Eosinophils Percent Auto 3.6 % (0-4); Hematocrit 38.9 % (42.0-52.0); Hemoglobin 12.8 g/dl (14.0-18.0); Imm Gran Abs Auto 0.03 X10*3/uL (0.00-0.03); Imm Gran Pct Auto 0.3 % (0.0-0.4); Lymphocytes Absolute Auto 4.2 X10*3/uL (1.2-4.9); Lymphocytes Percent Auto 39.1 % (20-40); Mean Corpuscular HGB Conc 32.9 g/dl (31.0-36.0); Mean Corpuscular Volume 91.1 fL (80.0-98.0); Mean Platelet Volume 9.7 fL (9.4-12.4); Monocytes Absolute Auto 1.2 X10*3/uL (0.1-1.2); Monocytes Percent Auto 11.6 % (2-11); Neutrophils Absolute Auto 4.8 x10*3/uL (2.0-8.3); Neutrophils Percent Auto 45.1 % (45-73); Platelet Count 226 X10*3/uL (160-400); Red Blood Count 4.27 X10*6/uL (4.60-5.80); Red Cell Distribution Width 14.7 % (11.0-16.0); White Blood Count 10.6 X10*3/uL (4.8-10.8)
[2022-03-27 16:27] LABS: COVID-19 Test Negative (Negative); IDNOW Serial# 16C4AD1C
[2022-03-27 16:32] LABS: Alanine Aminotransferase 66 U/L (0-40); Alkaline Phosphatase 98 U/L (39-117); Anion Gap 15 (12-20); Aspartate Amino Transferase 54 U/L (5-37); Bilirubin Direct 0.2 mg/dL (0.0-0.5); Bilirubin Total 0.3 mg/dL (0.0-1.0); Blood Urea Nitrogen 15 mg/dL (9-16); Calcium 9.6 mg/dL (8.4-10.2); Carbon Dioxide 22 mmol/L (22-29); Chloride 109 mmol/L (96-108); Creatinine Clr Calc Pharmacy 210.1; Estimated Glomerular Filt Rate > 60; Glucose Random 86 mg/dL (60-115); Potassium 4.2 mmol/L (3.3-5.1); Sodium 142 mmol/L (135-145); Total Protein 7.9 g/dL (6.5-8.0)
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
--- NOTE | 2022-03-27 16:47 | PHA.MEDREC ---
Pharmacy Consult ? Medication Reconciliation Pharmacy has completed the medication reconciliation. Spoke with the instructor programmable controllers Terri, she states that the patient hasn't taken any medications since night 03/25/22.
[2022-03-27] MEDS: HaloperidoL 5 MG TABLET PO (17:18)
[2022-03-27] MEDS: diphenhydrAMINE HCL 25 MG TABLET PO (17:18)
[2022-03-27 18:24] VITALS: BP 111/83; PULSE 123; RESP 16; TEMP 36.6; O2SAT 98
[2022-03-27] MEDS: chlorproMAZINE HCl 100 MG TABLET PO (19:10)
[2022-03-27 20:00] VITALS: RESP 16
[2022-03-27] MEDS: QUEtiapine Fumarate 400 MG TABLET 800 MG PO (20:00)
[2022-03-27] MEDS: metFORMIN HCl 500 MG TABLET PO (20:01)
[2022-03-27] MEDS: chlorproMAZINE HCl 25 MG TABLET 50 MG PO (20:02)
[2022-03-27] MEDS: Divalproex Sodium 500 MG TABLET.DR 1000 MG PO (20:02)
[2022-03-27] MEDS: Melatonin 3 MG TABLET PO (20:02)
[2022-03-27] MEDS: Docusate Sodium 100 MG CAPSULE PO (20:02)
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
[2022-03-27] MEDS: diphenhydrAMINE HCL 50 MG/ML VIAL 25 MG IM (21:26)
[2022-03-27] MEDS: Haloperidol Lactate 5 MG/ML VIAL IM (21:27)
[2022-03-27] MEDS: LORazepam 2 MG/ML VIAL IM (21:27)
[2022-03-27 21:32] VITALS: BP 137/76; PULSE 129; RESP 20; O2SAT 95
[2022-03-28] VITALS (9 sets, daily range): BP systolic 124; BP diastolic 71; PULSE 108–111; RESP 16–20; O2SAT 94–95
--- NOTE | 2022-03-28 00:37 | PC.NURSE ---
Patient alert and oriented x 2-3. Patient became aggressive and threatening because he was anxious. Dr. Gimenez ordered meds IM. medication restraint paperwork done. Patient calmed down and fell asleep manufacturing advisor at bedside. Will continue with plan of care.
--- NOTE | 2022-03-28 04:37 | PC.NURSE ---
pt sleeping no s/s of withdrawals. pt visable to staff.
[2022-03-28] MEDS: diphenhydrAMINE HCL 50 MG/ML VIAL IM (15:10)
[2022-03-28] MEDS: OLANZapine 10 MG VIAL 5 MG IM (15:10)
[2022-03-28] MEDS: LORazepam 2 MG/ML VIAL IM (15:10)
[2022-03-28] MEDS: LORazepam 1 MG TABLET 2 MG PO (19:36)
[2022-03-28] MEDS: diphenhydrAMINE HCL 25 MG TABLET 50 MG PO (19:37)
[2022-03-28] MEDS: HaloperidoL 5 MG TABLET PO (19:37)
--- NOTE | 2022-03-28 22:43 | PC.NURSE ---
Patient sleeping and refused to take medications.
[2022-03-29] VITALS: RESP 16
[2022-03-29 00:54] VITALS: RESP 16
[2022-03-29 04:16] VITALS: RESP 16
[2022-03-29] MEDS: chlorproMAZINE HCl 25 MG TABLET 50 MG PO (09:29)
[2022-03-29] MEDS: Divalproex Sodium 500 MG TABLET.DR 1000 MG PO (09:29)
[2022-03-29] MEDS: metFORMIN HCl 500 MG TABLET PO (09:29)
[2022-03-29] MEDS: Docusate Sodium 100 MG CAPSULE PO (09:29)
--- NOTE | 2022-03-29 09:32 | PC.NURSE ---
Pt awake, oriented to person and place. Calm and cooperative at this time, [facility], Claudette, updated on pt at this time. Sitter in place, will continue to monitor.
[2022-03-29] MEDS: Propranolol HCL LA 60 MG CAP.SA.24H 120 MG PO (10:14)
[2022-03-29 10:37] VITALS: BP 131/79; PULSE 95; RESP 20
[2022-03-29] MEDS: LORazepam 2 MG/ML VIAL IM (10:37)
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
--- NOTE | 2022-03-29 11:06 | PC.NURSE ---
Medicated for aggitation per pt request by sosa Ramirez.
--- NOTE | 2022-03-29 11:29 | MHC.CARE ---
CARE Team meets with pt for mental status update. Pt was initially assessed by [facility] on 03/27/22, however, crisis team has not been available to return to see the pt. Pt is very well known to TW from past ED visits under similar circumstances. CARE Team reviews crisis assessment, which sited that pt became dysregulated, posturing and making vague verbal threats. Pt is exhibiting increased anxiety and agitation likely in relation to upcoming move from his current respite program to a permanent [facility]. Pt has been cooperative, appropriately advocating for his needs and requesting discharge. CARE Team speaks with Service pharmacy district manager, Willam Patel, who speaks with pt's team and calls back with a plan. Plan is for patient to be discharged to his respite program with 3 days of PRN anxiety medication, and then transition to his new m[facility] tomorrow. Pt is appropriate for discharge at this time, and there are no identified goals for inpt admission. Plan is for mcc staff to come at 1230 and meet with pt and TW to talk about dc. This plan is discussed with ED provider Mariana Mensah NP.
== END 2022-03-29 12:57 | disposition home or self-care (01) ==
PROVIDERS: Emergency Provider Emergency Medicine; PCP Nurse Practitioner Family
DX: F91.1 Conduct disorder, childhood-onset type (principal); Z91.14 Patient's other noncompliance with medication regimen; Z20.822 Contact with and (suspected) exposure to COVID-19
CPT/HCPCS: 36415; 80048; 80076; 85025; 87635; 96372; 99285; J1200; J2060; Q0163

== ENCOUNTER 2022-04-05 12:19 | Emergency (ER) | payer MEDICAID, SELFPAY ==
--- NOTE | ~2022-04-05 | XR_ITS ---
EXAMINATION: XR CHEST CLINICAL INFORMATION: Chest pain COMPARISON: Previous chest x-ray October 2021 TECHNIQUE: Frontal view of the chest was obtained. FINDINGS: No significant abnormality is noted involving the heart, lungs, mediastinum, bony thorax or soft tissues. XR/XR chest 1V IMPRESSION: Unremarkable examination.
[2022-04-05 12:22] VITALS: BP 112/72; PULSE 88; RESP 14; TEMP 36.9; O2SAT 99; BMI 43.9
--- NOTE | 2022-04-05 12:28 | ED.CHESTPAIN ---
HPI - Chest Pain General Chief Complaint: Chest Pain Stated Complaint: CHEST PAIN FFROM [facility] PER EMS Time Seen by Provider: 04/05/22 12:28 Source: patient and old records reviewed Mode of arrival: EMS Limitations: no limitations History of Present Illness MD complaint: chest pain Pertinent past history: other (has had visits for chest pain in the past) Onset (ago): day(s) (started on Tuesday ) Timing of current episode: constant Prior episodes: Yes Onset: during rest Pain location: right chest Pain radiation: none Severity: moderate Quality: sharp Relieving factors: nothing Exacerbating factors: inspiration and movement Context: other (hx of similar episodes denies known cause) Treatment prior to arrival: none Related Data Home Medications Medication Instructions Recorded Confirmed blood pressure monitor (Blood #1 ea 11/13/20 07/07/21 Pressure Kit) divalproex 500 mg tablet,delayed 1,000 mg PO BID 11/17/21 03/27/22 release guanfacine 4 mg tablet,extended 4 mg PO BEDTIME 11/17/21 03/27/22 release 24 hr melatonin 3 mg tablet 3 mg PO BEDTIME 11/17/21 03/27/22 omega 1-oog-elx-fish oil 1,200 mg 1 cap PO DAILY 11/17/21 03/27/22 (144 mg-216 mg) capsule (Fish Oil) polyethylene glycol 3350 17 gram 17 g PO BID 11/17/21 03/27/22 oral powder packet (Miralax) quetiapine 400 mg tablet 800 mg PO BEDTIME 11/17/21 03/27/22 chlorpromazine 100 mg tablet 100 mg PO BID PRN 03/01/22 03/27/22 chlorpromazine 25 mg tablet 50 mg PO TID 03/01/22 03/27/22 propranolol 60 mg capsule,24 120 mg PO DAILY 03/01/22 03/27/22 hr,extended release ibuprofen 600 mg tablet 1 tab PO Q6H PRN 03/23/22 03/27/22 Previous Rx's Medication Instructions Recorded docusate sodium 100 mg capsule 100 mg PO BID 90 Days #180 cap 03/15/22 lorazepam 2 mg tablet 2 mg PO Q6H PRN #12 tab 03/29/22 metformin 500 mg tablet 500 mg PO BID 30 Days #60 tab 03/29/22 Allergies Allergy/AdvReac Type Severity Reaction Status Date / Time methylphenidate Allergy Unknown UNKNOWN Verified 03/19/22 21:32 [From RITALIN] shrimp [SHRIMP] Allergy Unknown HIVES Verified 03/19/22 21:32 haloperidol [From Haldol] Allergy Involuntary Verified 03/19/22 21:32 Spasms Review of Systems Review of Systems: Constitutional : No Weight loss, No Fever, No Chills ENT/Mouth : No sore throat, No Rhinorrhea Eyes: No Eye Pain, No Swelling Cardiovascular : pos Chest Pain, no SOB, no Dyspnea on Exertion, No Orthopnea, No Edema, No Palpitations Respiratory : No Cough, No Sputum Gastrointestinal : no Nausea, No Vomiting, No Diarrhea, No abdominal Pain, No Hematochezia, No Melena Genitourinary : No Dysuria, No Urinary Frequency Musculoskeletal : No joint pain, No Myalgias, No Joint Swelling Skin : No Skin Lesions, No rash Neuro : No Weakness, No Numbness, No Dizziness, No Headache Psych : No Anxiety/Panic, No Depression Heme/Lymph: No Bruising, No Lymphadenopathy Endocrine : No Polyuria, No Polydipsia All other systems reviewed and are negative [facility] Past Medical History Attestation statement: The following information was validated with the patient. Source: old records reviewed Medical History Adjustment disorder Chronic abdominal pain Developmental disability Dyspnea Seborrheic dermatitis Seizures XXYY syndrome Surgical History History of testicular surgery Family History Family History Father No problems noted. Mother Hypertension Diabetes Other History of brain cancer Social History Social History Housing: Assisted Living Facility Alcohol intake: never Patient Tobacco Use Status: Never used Tobacco Tobacco use type: Cigarette Years Smoked: 16 years old e-Cigarette/Vaping Use: Currently Using Use of substances other than those prescribed or required for medical reasons: No Substance Use Type: Crack/Cocaine and Marijuana Advance Directives: No Advance Directives Information Provided: No service: No Current occupational status: disabled Physical Exam Vital Signs: Vital Signs: Last Vital Signs Temp 98.5 F 04/05/22 12:22 Pulse 88 04/05/22 12:22 Resp 14 04/05/22 12:22 BP 112/72 04/05/22 12: Pulse Ox 99 04/05/22 12:22 BMI result Body Mass Index 43.9 Appearance: Alert. Oriented X3. No acute distress. Eyes: Pupils equal, round and reactive to light. ENT: Pharynx normal. Neck: Normal inspection. Neck supple. CVS: Normal heart rate and rhythm. Pulses normal. Respiratory: No respiratory distress. Breath sounds normal. Abdomen: Soft and non-tender. Skin: Skin warm and dry. Normal skin color. Normal skin turgor. Extremities: No lower extremity edema. No calf ttp Neuro: Oriented X 3. No motor deficit. No sensory deficit. Course Course Course Narrative: no acute findings on EKG, troponin, CXR - stable for DC at this time ALT chronically elevated MDM - Chest Pain MDM Narrative Medical decision making narrative: 21 yo male with hx of mental health issues, developmental delay, prior chest pain comes in today with R sided chest pain worse with movements and inspiration since Tuesday. He has no tachycardia, hypoxia, signs of DVT - doubt PE at this time he is PERC negative. At this time troponin x 1, EKG, CXR ordered. Dispo per results and findings. Lab Data Result diagrams: 04/05/22 12:45 04/05/22 12:45 Labs: Lab Results 04/05/22 04/05/22 04/05/22 Range/Units 12:45 12:45 12:45 WBC 8.0 (4.8-10.8) X10*3/uL RBC 4.30 L (4.60-5.80) X10*6/uL Hgb 13.0 L (14.0-18.0) g/dl Hct 40.2 L (42.0-52.0) % MCV 93.5 (80.0-98.0) fL MCH 30.2 (27.0-33.0) pg MCHC 32.3 (31.0-36.0) g/dl RDW 14.4 (11.0-16.0) % Plt Count 204 (160-400) X10*3/uL MPV 10.4 (9.4-12.4) fL Immature Gran % (Auto) 0.4 (0.0-0.4) % Neut % (Auto) 36.5 L (45-73) % Lymph % (Auto) 45.0 H (20-40) % [place] % (Auto) 11.2 H (2-11) % Eos % (Auto) 6.3 H (0-4) % Baso % (Auto) 0.6 (0-2) % Lymph # (Auto) 3.6 (1.2-4.9) X10*3/uL [place] # (Auto) 0.9 (0.1-1.2) X10*3/uL Eos # (Auto) 0.5 H (0.0-0.4) X10*3/uL Baso # (Auto) 0.1 (0.0-0.2) X10*3/uL Abs Immat Gran (auto) 0.03 (0.00-0.03) X10*3/uL Absolute Neuts (auto) 2.9 (2.0-8.3) x10*3/uL Absolute Nucleated RBC 0.000 (0.0-0.012) X10*3/uL Nucleated RBC % (auto) 0.0 (0.0-0.2) /100WBC PT 11.8 (9.9-13.0) SEC INR 1.0 (0.9-1.1) Sodium 141 (135-145) mmol/L Potassium 4.5 (3.3-5.1) mmol/L Chloride 107 (96-108) mmol/L Carbon Dioxide 24 (22-29) mmol/L Anion Gap 15 (12-20) BUN 10 (9-16) mg/dL Creatinine 0.87 (0.5-1.4) mg/dL Estim Creat Clear Calc 225.5 Estimated GFR > 60 Random Glucose 87 (60-115) mg/dL Calcium 9.9 (8.4-10.2) mg/dL Magnesium 1.9 (1.6-2.6) mg/dL Total Bilirubin 0.2 (0.0-1.0) mg/dL Direct Bilirubin < 0.2 (0.0-0.5) mg/dL AST 34 (5-37) U/L ALT 54 H (0-40) U/L Alkaline Phosphatase 97 (39-117) U/L Troponin I High Sens (<3.5-35.0) ng/L Total Protein 7.5 (6.5-8.0) g/dL Albumin 3.9 (3.5-5.0) g/dL Lipase 66 (8-78) U/L 04/05/22 Range/Units 12:45 WBC (4.8-10.8) X10*3/uL RBC (4.60-5.80) X10*6/uL Hgb (14.0-18.0) g/dl Hct (42.0-52.0) % MCV (80.0-98.0) fL MCH (27.0-33.0) pg MCHC (31.0-36.0) g/dl RDW (11.0-16.0) % Plt Count (160-400) X10*3/uL MPV (9.4-12.4) fL Immature Gran % (Auto) (0.0-0.4) % Neut % (Auto) (45-73) % Lymph % (Auto) (20-40) % [place] % (Auto) (2-11) % Eos % (Auto) (0-4) % Baso % (Auto) (0-2) % Lymph # (Auto) (1.2-4.9) X10*3/uL [place] # (Auto) (0.1-1.2) X10*3/uL Eos # (Auto) (0.0-0.4) X10*3/uL Baso # (Auto) (0.0-0.2) X10*3/uL Abs Immat Gran (auto) (0.00-0.03) X10*3/uL Absolute Neuts (auto) (2.0-8.3) x10*3/uL Absolute Nucleated RBC (0.0-0.012) X10*3/uL Nucleated RBC % (auto) (0.0-0.2) /100WBC PT (9.9-13.0) SEC INR (0.9-1.1) Sodium (135-145) mmol/L Potassium (3.3-5.1) mmol/L Chloride (96-108) mmol/L Carbon Dioxide (22-29) mmol/L Anion Gap (12-20) BUN (9-16) mg/dL Creatinine (0.5-1.4) mg/dL Estim Creat Clear Calc Estimated GFR Random Glucose (60-115) mg/dL Calcium (8.4-10.2) mg/dL Magnesium (1.6-2.6) mg/dL Total Bilirubin (0.0-1.0) mg/dL Direct Bilirubin (0.0-0.5) mg/dL AST (5-37) U/L ALT (0-40) U/L Alkaline Phosphatase (39-117) U/L Troponin I High Sens < 3.5 (<3.5-35.0) ng/L Total Protein (6.5-8.0) g/dL Albumin (3.5-5.0) g/dL Lipase (8-78) U/L ECG Data ECG #1: Attestation: I personally reviewed and interpreted this ECG as follows: ECG interpretation date: 04/05/22 ECG interpretation time: 12:36 Interpretation: Rate: 88 Rhythm: NSR Keller: normal Normal P waves. Normal ROSAMARIA. Normal QRS complex. ST T wave : normal no SARY qTC: normal prior studies: no acute ischemia The study has been interpreted contemporaneously by me. . Scores Additional Scores PERC Score: Score: 0 Discharge Plan Discharge Clinical Impression: Atypical chest pain Patient Disposition: Home, Self-Care Instructions: Chest Pain (ED) Additional Instructions: chest xray, electrocardiogram and blood work for your heart were normal today Prescriptions: No Action docusate sodium 100 mg capsule 100 mg PO BID 90 Days Qty: 180 0RF metformin 500 mg tablet 500 mg PO BID 30 Days Qty: 60 1RF chlorpromazine 100 mg tablet 100 mg PO BID PRN (Reason: Anxiety) 0RF chlorpromazine 25 mg Tablet 50 mg PO TID 0RF propranolol 60 mg capsule,extended release 24 hr 120 mg PO DAILY 0RF ibuprofen 600 mg tablet 1 tab PO Q6H PRN (Reason: pain) 0RF lorazepam 2 mg tablet 2 mg PO Q6H PRN (Reason: agitation) Qty: 12 0RF quetiapine 400 mg tablet 800 mg PO BEDTIME 0RF guanfacine 4 mg tablet extended release 24 hr 4 mg PO BEDTIME 0RF polyethylene glycol 3350 [Miralax] 17 gram Powder In Packet 17 g PO BID 0RF melatonin 3 mg Tablet 3 mg PO BEDTIME 0RF divalproex 500 mg tablet,delayed release (DR/EC) 1,000 mg PO BID 0RF omega 7-lvp-cgv-fish oil [Fish Oil] 1,200 (144-216) mg Capsule 1 cap PO DAILY 0RF (DME) blood pressure monitor [Blood Pressure Kit] Kit See Rx Instructions .ROUTE .MEDSUPPLY Qty: 1 0RF Rx Instructions: As directed Referrals: Drew Schulz, [employer] MA[employer]GER[employer] [Primary Care Provider] - 2 days (if not better)
--- NOTE | 2022-04-05 12:30 | ECG_ITS ---
Test Reason : CHEST PAIN Blood Pressure : / mmHG Vent. Rate : 088 BPM Atrial Rate : 088 BPM P-R Int : 148 ms QRS Dur : 080 ms QT Int : 342 ms P-R-T Axes : 044 019 026 degrees QTc Int : 413 ms Normal sinus rhythm Normal ECG When compared with ECG of 05-NOV-2021 20:45, No significant change was found Referred By: Jada Hoffmann Electronically Signed By:LUIS SORTO MD
[2022-04-05 12:46] VITALS: PULSE 84
[2022-04-05] MEDS: Ibuprofen 600 MG TABLET PO (12:48)
[2022-04-05 12:57] LABS: MANUAL DIFF FLAG NO
[2022-04-05 13:02] LABS: Basophils Absolute Auto 0.1 X10*3/uL (0.0-0.2); Basophils Percent Auto 0.6 % (0-2); Eosinophils Absolute Auto 0.5 X10*3/uL (0.0-0.4); Eosinophils Percent Auto 6.3 % (0-4); Hematocrit 40.2 % (42.0-52.0); Imm Gran Abs Auto 0.03 X10*3/uL (0.00-0.03); Imm Gran Pct Auto 0.4 % (0.0-0.4); Lymphocytes Absolute Auto 3.6 X10*3/uL (1.2-4.9); Mean Corpuscular HGB Conc 32.3 g/dl (31.0-36.0); Mean Corpuscular Hemoglobin 30.2 pg (27.0-33.0); Mean Corpuscular Volume 93.5 fL (80.0-98.0); Mean Platelet Volume 10.4 fL (9.4-12.4); Monocytes Absolute Auto 0.9 X10*3/uL (0.1-1.2); Monocytes Percent Auto 11.2 % (2-11); Neutrophils Absolute Auto 2.9 x10*3/uL (2.0-8.3); Neutrophils Percent Auto 36.5 % (45-73); Platelet Count 204 X10*3/uL (160-400); Red Cell Distribution Width 14.4 % (11.0-16.0)
[2022-04-05 13:05] LABS: Prothrombin Time 11.8 SEC (9.9-13.0)
[2022-04-05 13:15] LABS: Alanine Aminotransferase 54 U/L (0-40); Albumin Level 3.9 g/dL (3.5-5.0); Alkaline Phosphatase 97 U/L (39-117); Anion Gap 15 (12-20); Aspartate Amino Transferase 34 U/L (5-37); Bilirubin Direct < 0.2 mg/dL (0.0-0.5); Bilirubin Total 0.2 mg/dL (0.0-1.0); Blood Urea Nitrogen 10 mg/dL (9-16); Calcium 9.9 mg/dL (8.4-10.2); Carbon Dioxide 24 mmol/L (22-29); Chloride 107 mmol/L (96-108); Creatinine Clr Calc Pharmacy 225.5; Estimated Glomerular Filt Rate > 60; Glucose Random 87 mg/dL (60-115); Lipase 66 U/L (8-78); Magnesium 1.9 mg/dL (1.6-2.6); Potassium 4.5 mmol/L (3.3-5.1); Sodium 141 mmol/L (135-145); Total Protein 7.5 g/dL (6.5-8.0)
[2022-04-05 13:21] LABS: Troponin-I High Sensitivity < 3.5 ng/L (<3.5-35.0)
[2022-04-05] MEDS: LORazepam 1 MG TABLET PO (14:27)
[2022-04-05] MEDS: Acetaminophen 325 MG TABLET 650 MG PO (14:27)
== END 2022-04-05 14:31 | disposition home or self-care (01) ==
PROVIDERS: Emergency Provider Emergency Medicine; PCP Nurse Practitioner Family
DX: R07.89 Other chest pain (principal)
CPT/HCPCS: 36415; 71045; 80048; 80076; 83690; 83735; 84484; 85025; 85610; 93005; 99283; 99284

== ENCOUNTER 2022-04-20 13:11 | Emergency (ER) | payer MEDICAID, SELFPAY ==
[2022-04-20 13:20] VITALS: BP 117/73; PULSE 86; O2SAT 96
[2022-04-20 13:48] VITALS: BP 114/53; PULSE 85; RESP 16; TEMP 36.8; O2SAT 93; BMI 43.9
--- NOTE | 2022-04-20 14:14 | ED.GENADULT ---
HPI - General Adult General Chief complaint: Seizure Stated complaint: SEIZURES Time Seen by Provider: 04/20/22 14:04 Source: patient Mode of arrival: ambulatory Limitations: no limitations History of Present Illness HPI narrative: Patient comes to the emergency room reporting seizure-like activity. Patient was at the dentist. Patient reports that he passed out, then he had a seizure-like activity lasting for 20-30 seconds. Patient was given 2.5 mg Versed by EMS. At this time, patient reports no symptoms/complaints. Related Data Home Medications Medication Instructions Recorded Confirmed blood pressure monitor (Blood #1 ea 11/13/20 07/07/21 Pressure Kit) divalproex 500 mg tablet,delayed 1,000 mg PO BID 11/17/21 03/27/22 release guanfacine 4 mg tablet,extended 4 mg PO BEDTIME 11/17/21 03/27/22 release 24 hr melatonin 3 mg tablet 3 mg PO BEDTIME 11/17/21 03/27/22 omega 6-qxk-xjf-fish oil 1,200 mg 1 cap PO DAILY 11/17/21 03/27/22 (144 mg-216 mg) capsule (Fish Oil) polyethylene glycol 3350 17 gram 17 g PO BID 11/17/21 03/27/22 oral powder packet (Miralax) quetiapine 400 mg tablet 800 mg PO BEDTIME 11/17/21 03/27/22 chlorpromazine 100 mg tablet 100 mg PO BID PRN 03/01/22 03/27/22 chlorpromazine 25 mg tablet 50 mg PO TID 03/01/22 03/27/22 propranolol 60 mg capsule,24 120 mg PO DAILY 03/01/22 03/27/22 hr,extended release ibuprofen 600 mg tablet 1 tab PO Q6H PRN 03/23/22 03/27/22 Previous Rx's Medication Instructions Recorded docusate sodium 100 mg capsule 100 mg PO BID 90 Days #180 cap 03/15/22 lorazepam 2 mg tablet 2 mg PO Q6H PRN #12 tab 03/29/22 metformin 500 mg tablet 500 mg PO BID 30 Days #60 tab 03/29/22 Allergies Allergy/AdvReac Type Severity Reaction Status Date / Time methylphenidate Allergy Unknown UNKNOWN Verified 03/19/22 21:32 [From RITALIN] shrimp [SHRIMP] Allergy Unknown HIVES Verified 03/19/22 21:32 haloperidol [From Haldol] Allergy Involuntary Verified 03/19/22 21:32 Spasms Review of Systems Review of Systems: Constitutional : No Weight loss, No Fever, No Chills, No Night Sweats, No Fatigue, No Malaise ENT/Mouth : No Hearing loss, No Ear Pain, No Nasal Congestion, No Sinus Pain, No Hoarseness, No sore throat, No Rhinorrhea, No Swallowing Difficulty Eyes: No Eye Pain, No Swelling, No Redness, No Foreign Body, No Discharge, No Vision Changes Cardiovascular : No Chest Pain, No SOB, No Dyspnea on Exertion, No Orthopnea, No Edema, No Palpitations Respiratory : No Cough, No Sputum, No Wheezing, No Smoke Exposure, No Dyspnea Gastrointestinal : No Nausea, No Vomiting, No Diarrhea, No Constipation, No abdominal Pain, No Hematochezia, No Melena Genitourinary : no irregular bleeding, No Dysuria, No Urinary Frequency, No Hematuria, No Urinary Incontinence, No Urgency, No Flank Pain, No Urinary Flow Changes, No Hesitancy Musculoskeletal : No joint pain, No Myalgias, No Joint Swelling Skin : No Skin Lesions, No rash Neuro : No Weakness, No Numbness, No Paresthesias, syncope/near syncope, seizure-like activity, headache Psych : No Anxiety/Panic, No Depression, No SI/HI/AH/VH, No Social Issues, Heme/Lymph: No Bruising, No Bleeding,No Lymphadenopathy Endocrine : No Polyuria, No Polydipsia, No Temperature Intolerance PMF Past Medical History Medical History Adjustment disorder Chronic abdominal pain Developmental disability Dyspnea Seborrheic dermatitis Seizures XXYY syndrome Surgical History History of testicular surgery Family History Family History Father No problems noted. Mother Hypertension Diabetes Other History of brain cancer Social History Social History Housing: Assisted Living Facility Alcohol intake: never Patient Tobacco Use Status: Never used Tobacco Tobacco use type: Cigarette Years Smoked: 16 years old e-Cigarette/Vaping Use: Currently Using Substance Use Type: Crack/Cocaine and Marijuana Advance Directives: No Advance Directives Information Provided: No service: No Current occupational status: disabled Physical Exam ED Vital Signs: Vital Signs - 24 hr 04/20/22 13:48 Temperature 98.2 F Pulse Rate 85 Respiratory Rate 16 Blood Pressure 114/53 L Pulse Oximetry 93 BMI result Body Mass Index 43.9 Const Other: Appearance: Alert. Oriented X3. No acute distress. Eyes: Pupils equal, round and reactive to light. ENT: Pharynx normal. Neck: Normal inspection. Neck supple. No lymph nodes noted. No crepitus CVS: Normal heart rate and rhythm. Pulses normal. Normal S1 and S2 Respiratory: No respiratory distress. Breath sounds normal. No Wheezing. No rales Abdomen: Soft and nontender. No rigidity. No distention. Skin: Skin warm and dry. Normal skin color. Normal skin turgor. Extremities: No lower extremity edema. No Lacerations. No Rash Neuro: Oriented X 3. No motor deficit. No sensory deficit. Moving all extremities. No slurred speech. CN 2 through 12 grossly intact Psych: calm, cooperative, normal affect Course Course Course Narrative: Patient's labs and EKG pending. Patient likely had a vasovagal episode rather than a seizure. I was informed by the patient's nurse that the patient refused blood work, decided to walk out along with his manager of allied health services from the [facility]. Patient eloped. Discharge Plan Discharge Clinical Impression: Syncopal episodes Patient Disposition: Elopement Prescriptions: No Action docusate sodium 100 mg capsule 100 mg PO BID 90 Days Qty: 180 0RF metformin 500 mg tablet 500 mg PO BID 30 Days Qty: 60 1RF chlorpromazine 100 mg tablet 100 mg PO BID PRN (Reason: Anxiety) 0RF chlorpromazine 25 mg Tablet 50 mg PO TID 0RF propranolol 60 mg capsule,extended release 24 hr 120 mg PO DAILY 0RF ibuprofen 600 mg tablet 1 tab PO Q6H PRN (Reason: pain) 0RF lorazepam 2 mg tablet 2 mg PO Q6H PRN (Reason: agitation) Qty: 12 0RF quetiapine 400 mg tablet 800 mg PO BEDTIME 0RF guanfacine 4 mg tablet extended release 24 hr 4 mg PO BEDTIME 0RF polyethylene glycol 3350 [Miralax] 17 gram Powder In Packet 17 g PO BID 0RF melatonin 3 mg Tablet 3 mg PO BEDTIME 0RF divalproex 500 mg tablet,delayed release (DR/EC) 1,000 mg PO BID 0RF omega 8-kiw-hsi-fish oil [Fish Oil] 1,200 (144-216) mg Capsule 1 cap PO DAILY 0RF (DME) blood pressure monitor [Blood Pressure Kit] Kit See Rx Instructions .ROUTE .MEDSUPPLY Qty: 1 0RF Rx Instructions: As directed
--- NOTE | 2022-04-20 15:21 | PC.NURSE ---
PT REFUSING LABS AND ANY DX TESTING. IV WAS REMOVED. PT WALKED OUT OF ED. STAFF MEMBER PRESENT AT TIME OF DEPARTURE
== END 2022-04-20 15:29 | disposition left against medical advice (07) ==
PROVIDERS: Emergency Provider Emergency Medicine
DX: R55 Syncope and collapse (principal); F43.20 Adjustment disorder, unspecified; F17.200 Nicotine dependence, unspecified, uncomplicated
CPT/HCPCS: 99283

== ENCOUNTER 2022-04-29 15:15 | Emergency (ER) | payer MEDICAID, SELFPAY ==
--- NOTE | 2022-04-29 15:29 | ED_ITS ---
HPI - Psych General Chief Complaint: Psychiatric Symptoms Stated Complaint: Crisis Time Seen by Provider: 04/29/22 15:26 Source: patient and old records reviewed Mode of arrival: EMS Limitations: no limitations History of Present Illness MD complaint: other (anger, aggression, not taking medications) Onset (ago): day(s) (several) Duration: getting worse History of same: Yes Relieving factors: none Exacerbating factors: other (not taking medications) Context: other (hx of similar episodes) Associated psychiatric symptoms: other (anger) Associated symptoms: denies other symptoms Treatments prior to arrival: none Related Data Home Medications Medication Instructions Recorded Confirmed blood pressure monitor (Blood #1 ea 11/13/20 07/07/21 Pressure Kit) divalproex 500 mg tablet,delayed 1,000 mg PO BID 11/17/21 03/27/22 release guanfacine 4 mg tablet,extended 4 mg PO BEDTIME 11/17/21 03/27/22 release 24 hr melatonin 3 mg tablet 3 mg PO BEDTIME 11/17/21 03/27/22 omega 9-jku-mkb-fish oil 1,200 mg 1 cap PO DAILY 11/17/21 03/27/22 (144 mg-216 mg) capsule (Fish Oil) polyethylene glycol 3350 17 gram 17 g PO BID 11/17/21 03/27/22 oral powder packet (Miralax) quetiapine 400 mg tablet 800 mg PO BEDTIME 11/17/21 03/27/22 chlorpromazine 100 mg tablet 100 mg PO BID PRN 03/01/22 03/27/22 chlorpromazine 25 mg tablet 50 mg PO TID 03/01/22 03/27/22 propranolol 60 mg capsule,24 120 mg PO DAILY 03/01/22 03/27/22 hr,extended release ibuprofen 600 mg tablet 1 tab PO Q6H PRN 03/23/22 03/27/22 Previous Rx's Medication Instructions Recorded docusate sodium 100 mg capsule 100 mg PO BID 90 Days #180 cap 03/15/22 lorazepam 2 mg tablet 2 mg PO Q6H PRN #12 tab 03/29/22 metformin 500 mg tablet 500 mg PO BID 30 Days #60 tab 03/29/22 Allergies Allergy/AdvReac Type Severity Reaction Status Date / Time methylphenidate Allergy Unknown UNKNOWN Verified 04/29/22 15:37 [From RITALIN] shrimp [SHRIMP] Allergy Unknown HIVES Verified 04/29/22 15:37 haloperidol [From Haldol] Allergy Involuntary Verified 04/29/22 15:37 Spasms Review of Systems Review of Systems: Constitutional : No Fever, No Chills ENT/Mouth : No Ear Pain, No Nasal Congestion, No sore throat Eyes: No Eye Pain, No Swelling, No Redness Cardiovascular : No Chest Pain, No SOB Respiratory : No Cough, No Sputum, No Dyspnea Gastrointestinal : No Nausea, No Vomiting, No Diarrhea, No Hematochezia, No Melena Genitourinary : No Dysuria, No Urinary Frequency, No Hematuria Musculoskeletal : No Myalgias Skin : No Skin Lesions, No rash Neuro : No Weakness, No Numbness, No Paresthesias, No Dizziness, No Headache Psych : positive Anxiety, positive Depression, refusing to answer SI/HI Heme/Lymph: No Lymphadenopathy Endocrine : No Polyuria, No Polydipsia All other systems reviewed and are negative [facility] Past Medical History Attestation statement: The following information was validated with the patient. Source: old records reviewed Medical History Adjustment disorder Chronic abdominal pain Developmental disability Dyspnea Seborrheic dermatitis Seizures XXYY syndrome Surgical History History of testicular surgery Family History Family History Father No problems noted. Mother Hypertension Diabetes Other History of brain cancer Social History Social History Housing: Assisted Living Facility Alcohol intake: never Patient Tobacco Use Status: Never used Tobacco Tobacco use type: Cigarette Years Smoked: 16 years old e-Cigarette/Vaping Use: Currently Using Substance Use Type: Crack/Cocaine and Marijuana Advance Directives: No Advance Directives Information Provided: No service: No Current occupational status: disabled Physical Exam Vital Signs: Vital Signs: Last Vital Signs Pulse 104 H 04/29/22 15:37 Resp 18 04/29/22 15:37 BP 133/81 04/29/22 15:37 Pulse Ox 96 04/29/22 15:37 BMI result Body Mass Index 39.9 Appearance: Alert. Oriented X3. No acute distress. aggressive walking around upset yelling at people Eyes: Pupils equal, round and reactive to light. ENT: Pharynx normal. Dry skin on face Neck: Normal inspection. Neck supple. CVS: Normal heart rate and rhythm. Pulses normal. Respiratory: No respiratory distress. Breath sounds normal. Abdomen: Soft and nontender. Skin: Skin warm and dry. Normal skin color. Normal skin turgor. Extremities: No lower extremity edema. No calf ttp Neuro: Oriented X 3. No motor deficit. No sensory deficit. cannot participate in neuro exam at this time MDM - Psych MDM Narrative Medical decision making narrative: 21 yo male well known to us here with c/o not taking medications and aggressive at this time will need labs, PO medications and referral to crisis Discharge Plan Discharge Clinical Impression: Aggression Patient Disposition: Still a Patient Prescriptions: No Action docusate sodium 100 mg capsule 100 mg PO BID 90 Days Qty: 180 0RF metformin 500 mg tablet 500 mg PO BID 30 Days Qty: 60 1RF chlorpromazine 100 mg tablet 100 mg PO BID PRN (Reason: Anxiety) 0RF chlorpromazine 25 mg Tablet 50 mg PO TID 0RF propranolol 60 mg capsule,extended release 24 hr 120 mg PO DAILY 0RF ibuprofen 600 mg tablet 1 tab PO Q6H PRN (Reason: pain) 0RF lorazepam 2 mg tablet 2 mg PO Q6H PRN (Reason: agitation) Qty: 12 0RF quetiapine 400 mg tablet 800 mg PO BEDTIME 0RF guanfacine 4 mg tablet extended release 24 hr 4 mg PO BEDTIME 0RF polyethylene glycol 3350 [Miralax] 17 gram Powder In Packet 17 g PO BID 0RF melatonin 3 mg Tablet 3 mg PO BEDTIME 0RF divalproex 500 mg tablet,delayed release (DR/EC) 1,000 mg PO BID 0RF omega 5-moi-cig-fish oil [Fish Oil] 1,200 (144-216) mg Capsule 1 cap PO DAILY 0RF (DME) blood pressure monitor [Blood Pressure Kit] Kit See Rx Instructions .ROUTE .MEDSUPPLY Qty: 1 0RF Rx Instructions: As directed
[2022-04-29 15:37] VITALS: BP 133/81; BP 134/108; PULSE 104; PULSE 114; RESP 18; O2SAT 96; O2SAT 98; BMI 39.9
[2022-04-29] MEDS: OLANZapine 10 MG TABLET PO (15:40)
[2022-04-29] MEDS: LORazepam 1 MG TABLET 2 MG PO (15:40)
[2022-04-29 16:50] LABS: MANUAL DIFF FLAG NO
[2022-04-29 16:52] LABS: Basophils Absolute Auto 0.1 X10*3/uL (0.0-0.2); Basophils Percent Auto 0.6 % (0-2); Eosinophils Absolute Auto 0.8 X10*3/uL (0.0-0.4); Eosinophils Percent Auto 8.3 % (0-4); Hematocrit 42.7 % (42.0-52.0); Hemoglobin 13.7 g/dl (14.0-18.0); Imm Gran Abs Auto 0.03 X10*3/uL (0.00-0.03); Imm Gran Pct Auto 0.3 % (0.0-0.4); Lymphocytes Absolute Auto 3.4 X10*3/uL (1.2-4.9); Lymphocytes Percent Auto 37.3 % (20-40); Mean Corpuscular HGB Conc 32.1 g/dl (31.0-36.0); Mean Corpuscular Hemoglobin 29.7 pg (27.0-33.0); Mean Corpuscular Volume 92.4 fL (80.0-98.0); Mean Platelet Volume 10.1 fL (9.4-12.4); Monocytes Absolute Auto 0.9 X10*3/uL (0.1-1.2); Monocytes Percent Auto 10.4 % (2-11); Neutrophils Absolute Auto 3.9 x10*3/uL (2.0-8.3); Neutrophils Percent Auto 43.1 % (45-73); Platelet Count 201 X10*3/uL (160-400); Red Blood Count 4.62 X10*6/uL (4.60-5.80); Red Cell Distribution Width 13.9 % (11.0-16.0); White Blood Count 9.1 X10*3/uL (4.8-10.8)
[2022-04-29 17:06] LABS: Alanine Aminotransferase 51 U/L (0-40); Albumin Level 3.9 g/dL (3.5-5.0); Alkaline Phosphatase 98 U/L (39-117); Anion Gap 14 (12-20); Aspartate Amino Transferase 45 U/L (5-37); Bilirubin Direct 0.2 mg/dL (0.0-0.5); Bilirubin Total 0.4 mg/dL (0.0-1.0); Blood Urea Nitrogen 15 mg/dL (9-16); Calcium 9.8 mg/dL (8.4-10.2); Carbon Dioxide 25 mmol/L (22-29); Chloride 105 mmol/L (96-108); Creatinine Clr Calc Pharmacy 169.9; Estimated Glomerular Filt Rate > 60; Glucose Random 90 mg/dL (60-115); Potassium 4.4 mmol/L (3.3-5.1); Sodium 140 mmol/L (135-145); Total Protein 7.9 g/dL (6.5-8.0)
[2022-04-29 17:08] LABS: COVID-19 Test Negative (Negative); IDNOW Serial# 16C4AD1C
[2022-04-29 17:10] LABS: Valproate 44.6 mcg/mL (50.0-100.0)
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
[2022-04-29] MEDS: Melatonin 3 MG TABLET PO (19:43)
[2022-04-29] MEDS: Divalproex Sodium 500 MG TABLET.DR 1000 MG PO (19:43)
[2022-04-29] MEDS: Docusate Sodium 100 MG CAPSULE PO (19:43)
[2022-04-29] MEDS: chlorproMAZINE HCl 25 MG TABLET 50 MG PO (19:43)
[2022-04-29] MEDS: metFORMIN HCl 500 MG TABLET PO (19:43)
[2022-04-29] MEDS: Propranolol HCL LA 60 MG CAP.SA.24H 120 MG PO (19:44)
[2022-04-29] MEDS: QUEtiapine Fumarate 400 MG TABLET 800 MG PO (19:44)
== END 2022-04-29 19:51 | disposition home or self-care (01) ==
PROVIDERS: Emergency Provider Emergency Medicine; PCP Nurse Practitioner Family
DX: F91.1 Conduct disorder, childhood-onset type (principal); Z20.822 Contact with and (suspected) exposure to COVID-19
CPT/HCPCS: 80048; 80076; 80164; 85025; 87635; 99283; 99285

== ENCOUNTER 2022-05-05 14:31 | Emergency (ER) | payer MEDICAID, SELFPAY ==
[2022-05-05 14:39] VITALS: BP 120/88; PULSE 98; RESP 16; O2SAT 96; BMI 39.9
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
--- NOTE | 2022-05-05 17:26 | PC.NURSE ---
awaiting care team to speak to senior living about return.
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
--- NOTE | 2022-05-05 19:02 | PC.NURSE ---
report given to atiya falcon
--- NOTE | 2022-05-05 19:35 | PHA.MEDREC ---
Pharmacy Consult ? Medication Reconciliation Pharmacy has completed the medication reconciliation. Spoke to Raquel (primary contact) and she stated that he was discharged on 04/29 and all of his medications are the same.
[2022-05-05] MEDS: chlorproMAZINE HCl 25 MG TABLET 50 MG PO (20:41)
[2022-05-05] MEDS: QUEtiapine Fumarate 400 MG TABLET 800 MG PO (20:42)
[2022-05-05] MEDS: Melatonin 3 MG TABLET PO (20:42)
[2022-05-05] MEDS: Divalproex Sodium 500 MG TABLET.DR 1000 MG PO (20:42)
[2022-05-05] MEDS: Ibuprofen 800 MG TABLET PO (20:42)
[2022-05-05] MEDS: Propranolol HCL LA 60 MG CAP.SA.24H 120 MG PO (20:43)
[2022-05-05 20:44] VITALS: BP 128/68; PULSE 72
== END 2022-05-05 21:18 | disposition other institution (70) ==
PROVIDERS: Emergency Provider Emergency Medicine; PCP Nurse Practitioner Family
DX: R45.6 Violent behavior (principal); Q98 Other sex chromosome abnormalities, male phenotype, not elsewhere classified; F89 Unspecified disorder of psychological development; F43.20 Adjustment disorder, unspecified
CPT/HCPCS: 99285

== ENCOUNTER 2022-05-19 10:43 | Outpatient (REF) | payer MEDICAID, SELFPAY ==
[2022-05-19 13:43] LABS: MANUAL DIFF FLAG NO
[2022-05-19 13:58] LABS: Basophils Percent Auto 0.4 % (0-2); Eosinophils Absolute Auto 0.9 X10*3/uL (0.0-0.4); Eosinophils Percent Auto 9.4 % (0-4); Hematocrit 44.4 % (42.0-52.0); Hemoglobin 14.2 g/dl (14.0-18.0); Imm Gran Abs Auto 0.03 X10*3/uL (0.00-0.03); Imm Gran Pct Auto 0.3 % (0.0-0.4); Lymphocytes Absolute Auto 4.6 X10*3/uL (1.2-4.9); Lymphocytes Percent Auto 49.8 % (20-40); Mean Corpuscular Volume 93.9 fL (80.0-98.0); Mean Platelet Volume 10.4 fL (9.4-12.4); Monocytes Absolute Auto 0.8 X10*3/uL (0.1-1.2); Monocytes Percent Auto 8.3 % (2-11); Neutrophils Absolute Auto 2.9 x10*3/uL (2.0-8.3); Neutrophils Percent Auto 31.8 % (45-73); Platelet Count 220 X10*3/uL (160-400); Red Blood Count 4.73 X10*6/uL (4.60-5.80); Red Cell Distribution Width 13.4 % (11.0-16.0); White Blood Count 9.2 X10*3/uL (4.8-10.8)
[2022-05-19 14:05] LABS: Appearance Urine CLEAR; Color Urine YELLOW; Glucose Urine UA NEG (NEG); Leukocyte Esterase Urine NEG (NEG); Nitrite Urine NEG (NEG); Specific Gravity - Urine >= 1.030 (1.005-1.025); Urine Blood NEG (NEG); Urine Ketones NEG (NEG); Urine Protein NEG (NEG-TRACE)
[2022-05-19 14:14] LABS: Alanine Aminotransferase 51 U/L (0-40); Alkaline Phosphatase 108 U/L (39-117); Anion Gap 13 (12-20); Aspartate Amino Transferase 40 U/L (5-37); Bilirubin Total 0.3 mg/dL (0.0-1.0); Blood Urea Nitrogen 11 mg/dL (9-16); Calcium 9.6 mg/dL (8.4-10.2); Carbon Dioxide 24 mmol/L (22-29); Chloride 107 mmol/L (96-108); Cholesterol 264 mg/dL; Estimated Glomerular Filt Rate > 60; Glucose Fasting 107 mg/dL (60-99); HDL Cholesterol 30 mg/dL; LDL Cholesterol Calculated 168 mg/dl; Potassium 4.4 mmol/L (3.3-5.1); Sodium 140 mmol/L (135-145); Total Protein 7.9 g/dL (6.5-8.0); Triglycerides 332 mg/dL
[2022-05-19 14:43] LABS: TSH reflex Free T4 5.83 uIU/mL (0.32-4.0)
[2022-05-19 15:16] LABS: Free T4 (Free Thyroxine) 0.75 ng/dL (0.71-1.85)
== END 2022-05-19 10:44 | disposition home or self-care (01) ==
LOC: HO.HMGCLDS 10:43
PROVIDERS: Visit Provider Nurse Practitioner Family
DX: Z00.00 Encounter for general adult medical examination without abnormal findings (principal)
CPT/HCPCS: 36415; 80053; 80061; 81003; 84439; 84443; 85025

== ENCOUNTER 2022-05-27 15:01 | Emergency (ER) | payer MEDICAID, SELFPAY ==
[2022-05-27 15:10] VITALS: BP 136/91; BP 173/96; PULSE 110; RESP 18; TEMP 36.6; O2SAT 100; O2SAT 96; BMI 38.9
[2022-05-27 15:24] VITALS: RESP 18
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
--- NOTE | 2022-05-27 15:29 | PC.NURSE ---
pt escalating at this time, punching safety glass infront of nurses station. security to chair side.
--- NOTE | 2022-05-27 15:33 | PC.NURSE ---
Late entry: 1520 Pt refusing UA/CERRATO/COVID swab
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
[2022-05-27] MEDS: LORazepam 1 MG TABLET 2 MG PO (15:47)
[2022-05-27 15:49] VITALS: BP 148/94; PULSE 105; RESP 18; O2SAT 98
--- NOTE | 2022-05-27 15:58 | PC.NURSE ---
Father speedy contacted for mom's new phone number per request. Father upset with this display card writer obtaining permission to speak to patient about condition. Father educated on desclation techniques utilized by RN regarding repecting patient privacy and condition. Verbalized understanding. Pt gave me permission to discuss current situation with father.
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
--- NOTE | 2022-05-27 17:10 | PHA.MEDREC ---
Pharmacy Consult ? Medication Reconciliation Pharmacy has completed the medication reconciliation.Spoke with sarai from [facility] who went over patients entire med list.
--- NOTE | 2022-05-27 17:40 | PC.NURSE ---
Mom updated at [phone] Pt moved to main ED per care plan. attempted to update uriel ruff
[2022-05-27 17:43] LABS: Appearance Urine CLEAR; Color Urine YELLOW; Glucose Urine UA NEG (NEG); Leukocyte Esterase Urine NEG (NEG); Nitrite Urine NEG (NEG); Specific Gravity - Urine >= 1.030 (1.005-1.025); UACC Culture Trigger NO; Urine Blood NEG (NEG); Urine Ketones 5 MG/DL (NEG); Urine Protein 1+ MG/DL (NEG-TRACE)
[2022-05-27 17:51] LABS: COVID-19 Test Negative (Negative)
[2022-05-27 17:52] LABS: Amphetamine Screen Urine Not Detected (Not Detect); Barbiturates, Urine Not Detected (Not Detect); Benzodiazepines Screen Urine Not Detected (Not Detect); Cannabinoid Screen Urine POSITIVE (Not Detect); Cocaine Screen Urine Not Detected (Not Detect); Fentanyl, urine Not Detected (Not Detect); Opiate Screen Urine Not Detected (Not Detect); Phencyclidine Screen Urine Not Detected (Not Detect)
[2022-05-27 17:53] LABS: Mucus Urine 1+ /LPF; Squamous Epithelial Cell Urine 1+ /LPF
[2022-05-27 17:54] LABS: Amorphous Sediment Urine TRACE /LPF; RBC Urine 0-2 /HPF (0); WBC Urine 0-2 /HPF (0-4)
[2022-05-27 19:44] VITALS: BP 105/60; PULSE 86; RESP 18; O2SAT 96
[2022-05-27 23:45] VITALS: BP 129/76; PULSE 75; TEMP 36.7; O2SAT 97
[2022-05-27] MEDS: Melatonin 3 MG TABLET PO (23:59)
[2022-05-27] MEDS: Divalproex Sodium 500 MG TABLET.DR 1000 MG PO (23:59)
[2022-05-27] MEDS: QUEtiapine Fumarate 400 MG TABLET 800 MG PO (23:59)
--- NOTE | 2022-05-28 00:03 | PC.NURSE ---
Patient began to start to get agitated because he wanted his medication. Able to contact pharmacy and get his nightime medication.
--- NOTE | 2022-05-28 08:36 | PC.NURSE ---
pt resting comfortably, sitter in place.
[2022-05-28 09:03] VITALS: RESP 16
--- NOTE | 2022-05-28 10:08 | PC.NURSE ---
pt is sleeping with sitter at bedside. Spoke with care team and the plan is to send pt back to custodial.
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
[2022-05-28] MEDS: chlorproMAZINE HCl 25 MG TABLET 50 MG PO (11:22)
[2022-05-28] MEDS: Divalproex Sodium 500 MG TABLET.DR 1000 MG PO (11:23)
[2022-05-28 11:28] VITALS: BP 112/57
--- NOTE | 2022-05-28 11:46 | MHC.CARE ---
CARE Team left VM with Raquel regarding ETA for EMS.
== END 2022-05-28 20:44 | disposition home or self-care (01) ==
PROVIDERS: Nurse Practitioner Family; Emergency Provider Emergency Medicine; PCP Nurse Practitioner Family
DX: F91.8 Other conduct disorders (principal); R45.851 Suicidal ideations; Z20.822 Contact with and (suspected) exposure to COVID-19; F43.20 Adjustment disorder, unspecified; F72 Severe intellectual disabilities; Q98 Other sex chromosome abnormalities, male phenotype, not elsewhere classified; F89 Unspecified disorder of psychological development; F17.200 Nicotine dependence, unspecified, uncomplicated; F12.90 Cannabis use, unspecified, uncomplicated; Z79.899 Other long term (current) drug therapy
CPT/HCPCS: 80307; 81001; 87635; 99285

== ENCOUNTER 2022-05-28 15:35 | Emergency (ER) | payer MEDICAID, SELFPAY ==
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
[2022-05-28 16:11] VITALS: BP 128/84; BP 145/96; PULSE 102; PULSE 90; RESP 18; TEMP 36.7; O2SAT 95; BMI 38.1
[2022-05-28] MEDS: Acetaminophen 325 MG TABLET 650 MG PO (16:30)
[2022-05-28] MEDS: LORazepam 1 MG TABLET 2 MG PO (16:31)
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
--- NOTE | 2022-05-28 18:02 | PC.NURSE ---
pt resting on stretcher in nad breathing with ease on RA. pt denies SI, HI at this time
--- NOTE | 2022-05-28 19:00 | PC.NURSE ---
Pt resting, Pt calm/cooperative, sitter at bedside, safety maintained, this RN continues to monitor.
--- NOTE | 2022-05-28 20:01 | PC.NURSE ---
This RN spoke with Kiera from CARE team who states she will discuss crisis consult order with provider and will then update primary RN on whether consult is indicated at this time as this is pt's second visit to this ER today
--- NOTE | 2022-05-28 20:59 | PC.NURSE ---
[facility] online referral completed by this RN.
--- NOTE | 2022-05-29 | PC.NURSE ---
Pt resting, Pt calm/cooperative at this time, sitter at bedside, safety maintained, this RN continues to monitor.
[2022-05-29 00:01] VITALS: BP 115/62; PULSE 91; RESP 16; O2SAT 96
[2022-05-29] MEDS: OLANZapine 5 MG TABLET PO (01:07)
[2022-05-29] MEDS: LORazepam 1 MG TABLET 2 MG PO ×2 (01:07→16:48)
--- NOTE | 2022-05-29 03:00 | PC.NURSE ---
Pt resting, sitter at bedside, safety maintained, this RN continues to monitor
--- NOTE | 2022-05-29 06:50 | PC.NURSE ---
Pt resting, sitter at bedside, safety maintained, this RN continues to monitor.
--- NOTE | 2022-05-29 10:29 | MHC.CARE ---
Pt was referred to N following consult by CARE Team. Per N Pt will be a follow up. Pt was not engaging and Pts snf is advocating for [facility] admission regarding medications. Plan for psychiatry to be consult regarding disposition.
--- NOTE | 2022-05-29 12:23 | PHA.MEDREC ---
Pharmacy Consult ? Medication Reconciliation Pharmacy has completed the medication reconciliation. completed med rec based on med rec from 05/27
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
[2022-05-29] MEDS: chlorproMAZINE HCl 25 MG TABLET 50 MG PO ×2 (15:06→21:27)
[2022-05-29 15:18] VITALS: BP 150/75; PULSE 91; RESP 18; TEMP 37.2; O2SAT 97
[2022-05-29] MEDS: diphenhydrAMINE HCL 25 MG TABLET 50 MG PO (16:48)
[2022-05-29] MEDS: HaloperidoL 5 MG TABLET PO (16:48)
--- NOTE | 2022-05-29 17:19 | MHC.CARE ---
Anna was seen for psych consult by SCULPTURE CONSERVATOR Monalisa Arnold, disposition is for inpatient level of care and bed search to be pursued. CARE team called [facility] supervisor chassis assembly Makeda, she reports [facility] to do MSU tomorrow and obtain authorization for inpatient level of care.
[2022-05-29] MEDS: Chlorhexidine Gluc Oral Rinse 15 ML MOUTHWASH BUCCAL (21:25)
[2022-05-29] MEDS: Docusate Sodium 100 MG CAPSULE PO (21:27)
[2022-05-29] MEDS: Sennosides 8.6 MG TABLET PO (21:27)
[2022-05-29] MEDS: Melatonin 3 MG TABLET PO (21:27)
[2022-05-29] MEDS: Divalproex Sodium 500 MG TABLET.DR 1000 MG PO (21:27)
[2022-05-29] MEDS: polyethylene glycoL 3350 17 GM POWD.PACK PO (21:28)
[2022-05-29] MEDS: QUEtiapine Fumarate 400 MG TABLET 800 MG PO (21:33)
[2022-05-30 05:02] VITALS: PULSE 89; RESP 18; O2SAT 98
[2022-05-30 06:14] VITALS: RESP 18
--- NOTE | 2022-05-30 09:15 | PC.NURSE ---
[facility] at bedside speaking to pt
--- NOTE | 2022-05-30 10:45 | PC.NURSE ---
Pt sleeping, holding off on morning medications until pt wakes
--- NOTE | 2022-05-30 13:15 | PC.NURSE ---
pt finally woke up and is requesting to speak with someone from care team ,called Stefanie and she will coming over to speak to him, pt is not wanting to take his morning medications at this time
[2022-05-30] MEDS: Divalproex Sodium 500 MG TABLET.DR 1000 MG PO ×2 (13:31→20:46)
[2022-05-30] MEDS: LORazepam 1 MG TABLET 2 MG PO (13:31)
[2022-05-30] MEDS: OLANZapine ODT 10 MG TAB.RAPDIS TRANSLINGU (13:31)
[2022-05-30 13:34] VITALS: BP 128/84; PULSE 108; RESP 20; TEMP 36.3; O2SAT 95
--- NOTE | 2022-05-30 13:40 | PC.NURSE ---
pt got agitated after speaking with Stefanie from the care team started to punch the wall and walking off towards the exit door, at first pt was refusing to come back not redirectable but this rn offered the pt a doughnut and pt was willing to take his medications and come back to his bed
[2022-05-30 14:07] LABS: Ammonia 46 umol/L (13-55)
[2022-05-30 14:27] LABS: Valproate 52.3 mcg/mL (50.0-100.0)
[2022-05-30] MEDS: chlorproMAZINE HCl 25 MG TABLET 50 MG PO ×2 (17:40→20:46)
[2022-05-30 17:44] VITALS: BP 123/73; PULSE 115; RESP 20; O2SAT 96
--- NOTE | 2022-05-30 17:46 | PC.NURSE ---
pt just woke up, calm and cooperative, took his medications with out any problems, reports that his headache went away, requested and received ice cream
--- NOTE | 2022-05-30 19:00 | PC.NURSE ---
manjeet from [facility] called and is requesting that we send over pt's lab results, notes, nurses notes, covid swab the number is [phone]
[2022-05-30] MEDS: Docusate Sodium 100 MG CAPSULE PO (20:46)
--- NOTE | 2022-05-30 20:47 | MHC.CARE ---
CARE team checked in with pt to discuss that he is currently a [facility] 12 bedsearch for psychiatric admission.
[2022-05-30] MEDS: QUEtiapine Fumarate 400 MG TABLET 800 MG PO (20:48)
[2022-05-30] MEDS: Melatonin 3 MG TABLET PO (20:48)
[2022-05-30] MEDS: Sennosides 8.6 MG TABLET PO (20:48)
[2022-05-30 22:00] VITALS: RESP 15
[2022-05-30 23:45] VITALS: BP 128/80; PULSE 107; RESP 20; O2SAT 96
--- NOTE | 2022-05-31 10:49 | MHC.CARE ---
CARE Team spoke with Juliet García mix house tender regarding plan of care. CARE Team and Raquel dicussed possible DDU bedsearch from home. She reported Juliet and [facility] have an emergency meeting scheduled for 06/01 at 2pm. Plan for CARE Team to discuss with Pt return to residential and DDU bedsearch from home.
[2022-05-31] MEDS: chlorproMAZINE HCl 25 MG TABLET 50 MG PO (11:46)
[2022-05-31] MEDS: polyethylene glycoL 3350 17 GM POWD.PACK PO (11:46)
[2022-05-31] MEDS: Divalproex Sodium 500 MG TABLET.DR 1000 MG PO (11:46)
[2022-05-31] MEDS: Docusate Sodium 100 MG CAPSULE PO (11:46)
--- NOTE | 2022-05-31 11:47 | PC.NURSE ---
Pt cooperating with care. Took pills whole in apple juice.
[2022-05-31 11:48] VITALS: BP 133/70; PULSE 102; RESP 16; O2SAT 99
--- NOTE | 2022-05-31 12:05 | MHC.CARE ---
CARE Team spoke with Pt and snf. Plan for Pt to return home via EMS. Pt will remain a DDU bedsearch with [facility] and Pts outpatient can coordinate with N regarding appropriateness of continuing bedsearch.
== END 2022-05-31 13:59 | disposition home or self-care (01) ==
PROVIDERS: Registered Nurse; Emergency Provider Internal Medicine; PCP Nurse Practitioner Family
DX: F63.81 Intermittent explosive disorder (principal); R45.851 Suicidal ideations; F72 Severe intellectual disabilities; F44.5 Conversion disorder with seizures or convulsions; Q98 Other sex chromosome abnormalities, male phenotype, not elsewhere classified; R07.89 Other chest pain; M54.2 Cervicalgia; Z79.899 Other long term (current) drug therapy; F17.210 Nicotine dependence, cigarettes, uncomplicated; Z71.6 Tobacco abuse counseling
CPT/HCPCS: 36415; 70450; 71045; 72125; 80164; 82140; 99285; Q0163

== ENCOUNTER 2022-06-05 15:54 | Emergency (ER) | payer MEDICAID, SELFPAY ==
[2022-06-05 16:02] VITALS: BP 115/71; PULSE 90; RESP 18; TEMP 36.8; O2SAT 95; BMI 46.3
--- NOTE | 2022-06-05 16:03 | ECG_ITS ---
Test Reason : DIZNESS Blood Pressure : / mmHG Vent. Rate : 096 BPM Atrial Rate : 096 BPM P-R Int : 138 ms QRS Dur : 082 ms QT Int : 340 ms P-R-T Axes : 038 004 014 degrees QTc Int : 429 ms Normal sinus rhythm Normal ECG When compared with ECG of 05-APR-2022 12:29, No significant change was found Referred By: Generic ED Physician Electronically Signed By:Zaki Graham
== END 2022-06-05 16:48 | disposition left against medical advice (07) ==
PROVIDERS: Emergency Provider Emergency Medicine
DX: R42 Dizziness and giddiness (principal); R07.89 Other chest pain; R06.02 Shortness of breath
CPT/HCPCS: 93005; 99282; 99283

== ENCOUNTER 2022-06-05 17:30 | Emergency (ER) | payer MEDICAID, SELFPAY ==
--- NOTE | ~2022-06-05 | XR_ITS ---
EXAMINATION: XR CHEST CLINICAL INFORMATION: Chest pain COMPARISON: Chest radiograph 05/28/2022. TECHNIQUE: 2 views of the chest were obtained. FINDINGS: Normal appearance of the cardiomediastinal structures. No effusions or pneumothoraces. No focal pulmonary consolidation. Normal pattern of pulmonary vasculature. XR/XR chest 2V IMPRESSION: No acute cardiopulmonary abnormalities.
[2022-06-05 17:37] VITALS: BP 134/59; PULSE 82; O2SAT 96
--- NOTE | 2022-06-05 17:37 | PC.NURSE ---
ems dropped pt off in waiting room, pt refusing to go to triage, sat down in waiting room for approx 1 minute then ambulated out of ed waiting room w steady gait in no apparent distress.
[2022-06-05 17:45] VITALS: BP 121/68; PULSE 87; RESP 18; TEMP 36.6; O2SAT 95; BMI 45.0
--- NOTE | 2022-06-05 17:54 | PC.NURSE ---
pt alerting this rn that he wants to hurt himself . denies specific plan.
--- NOTE | 2022-06-05 18:04 | ECG_ITS ---
Test Reason : CHEST PAIN Blood Pressure : / mmHG Vent. Rate : 077 BPM Atrial Rate : 077 BPM P-R Int : 146 ms QRS Dur : 082 ms QT Int : 362 ms P-R-T Axes : 046 018 017 degrees QTc Int : 409 ms Normal sinus rhythm Normal ECG When compared with ECG of 05-JUN-2022 15:58, No significant change was found Referred By: Radha Jin Electronically Signed By:LUIS SORTO MD
--- NOTE | 2022-06-05 18:09 | ED.GENADULT ---
HPI - General Adult General Chief complaint: General Medical Stated complaint: chest pain Time Seen by Provider: 06/05/22 18:01 Source: patient Mode of arrival: ambulatory Limitations: no limitations History of Present Illness HPI narrative: 21-year-old male coming from a care home with a past medical history of XXYY syndrome, seizure disorder, developmental disability?here with left-sided chest pain since last night. Chest pain is constant but is worsened with deep breathing, movement of the arm and palpation. No associated shortness of breath, cough or fever. No leg swelling or leg pain. NO SI today Related Data Home Medications Medication Instructions Recorded Confirmed acetaminophen 325 mg tablet 650 mg PO Q6H PRN Pain (Scale 05/29/22 05/29/22 Score 1-3) chlorhexidine gluconate 0.12 % 15 ml buccal BEDTIME 05/29/22 05/29/22 mouthwash (Peridex) chlorpromazine 100 mg tablet 100 mg PO BID PRN PRN 05/29/22 05/29/22 chlorpromazine 25 mg tablet 50 mg PO TID 05/29/22 05/29/22 divalproex 500 mg tablet,delayed 1,000 mg PO BID 05/29/22 05/29/22 release docusate sodium 100 mg capsule 1 cap PO BID 05/29/22 05/29/22 guanfacine 4 mg tablet,extended 4 mg PO BEDTIME 05/29/22 05/29/22 release 24 hr ibuprofen 800 mg tablet 800 mg PO BID PRN Pain 05/29/22 05/29/22 lorazepam 2 mg tablet 2 mg PO TID PRN Anxiety 05/29/22 05/29/22 melatonin 3 mg tablet 3 mg PO BEDTIME 05/29/22 05/29/22 polyethylene glycol 3350 17 gram 17 g PO BID 05/29/22 05/29/22 oral powder packet (Miralax) propranolol 160 mg capsule,24 160 mg PO DAILY 05/29/22 05/29/22 hr,extended release quetiapine 400 mg tablet 2 tab PO BEDTIME 05/29/22 05/29/22 sennosides 8.6 mg tablet (senna) 8.6 mg PO BEDTIME 05/29/22 05/29/22 sildenafil 50 mg tablet 50 mg PO DAILY PRN Sexual Activity 05/29/22 05/29/22 Allergies Allergy/AdvReac Type Severity Reaction Status Date / Time methylphenidate Allergy Unknown UNKNOWN Verified 05/13/22 10:50 [From RITALIN] shrimp [SHRIMP] Allergy Unknown HIVES Verified 05/13/22 10:50 haloperidol [From Haldol] Allergy Involuntary Verified 05/13/22 10:50 Spasms Review of Systems Review of Systems: Yes all other systems are reviewed and are negative Constitutional: Constitutional: Reports no additional constitutional complaints, Denies body ache(s), Denies chills, Denies fever(s), Denies headache(s) and Denies weakness Eyes: Eyes: Reports no additional eye complaints and Denies change in vision ENT: Reports system reviewed and no additional complaints, except as documented, Denies dizziness, Denies headache(s), Denies nasal congestion, Denies nasal discharge and Denies neck pain Cardiovascular: Cardiovascular: Reports no additional cardiovascular complaints, Reports chest pain, Denies leg edema and Denies dyspnea Respiratory: Respiratory: Reports no additional respiratory complaints, Denies cough and Denies dyspnea Gastrointestinal: Gastrointestinal: Reports no additional gastrointestinal complaints, Denies abdominal pain, Denies diarrhea, Denies nausea and Denies vomiting Genitourinary: Genitourinary: Denies urinary incontinence Musculoskeletal: Musculoskeletal: Reports no additional musculoskeletal complaints, Denies back pain, Denies arthralgias, Denies joint swelling, Denies neck pain, Denies numbness and Denies tingling Integumentary/Breasts: Skin/Breast: Reports system reviewed and no additional complaints, except as docu and Denies rash Neurologic: Reports system reviewed and no additional complaints, except as documented, Denies dizziness, Denies headache(s), Denies numbness, Denies tingling and Denies weakness [facility] Past Medical History Attestation statement: The following information was validated with the patient. Source: old records reviewed and nursing notes reviewed Medical History Adjustment disorder Chronic abdominal pain Developmental disability Dyspnea Seborrheic dermatitis Seizures XXYY syndrome Surgical History History of testicular surgery Family History Family History Father No problems noted. Mother Hypertension Diabetes Other History of brain cancer Social History Social History Housing: Assisted Living Facility Alcohol intake: never Patient Tobacco Use Status: Current everyday Tobacco user Tobacco use type: Cigarette Years Smoked: 16 years old e-Cigarette/Vaping Use: Currently Using Substance Use Type: Crack/Cocaine and Marijuana Advance Directives: No Advance Directives Information Provided: No service: No Current occupational status: disabled Cognitive needs: Yes Hearing needs: No Vision needs: No Physical Exam ED Vital Signs: Vital Signs - 24 hr 06/05/22 17:45 Temperature 98 F Pulse Rate 87 Respiratory Rate 18 Blood Pressure 121/68 Pulse Oximetry 95 Oxygen Delivery Method Room Air BMI result Body Mass Index 45.0 Const General: alert Orientation/consciousness: patient oriented x3 Limitations: no limitations HENMT Head: Yes normal to inspection Ears: hearing grossly normal bilaterally Eyes General: appearance normal, both eyes and all related structures Pupils: Equal, round and reactive pupils present Neck Neck: Yes normal visual inspection, Yes full ROM and Yes no lymphadenopathy Chest Other: Left chest tender to palpate. No ecchymosis or crepitus Chest palpation & inspection: normal inspection of the chest Resp Effort & Inspection: normal respiratory effort Auscultation: clear to auscultation bilaterally Cardio Rate: regular rate Rhythm: regular rhythm Peripheral pulses: Peripheral pulses 2+ throughout GI Inspection: Yes normal to inspection Palpation (GI): Soft to palpation and nontender General: Yes no CVA tenderness Back/Spine/Pelvis Back: no CVA tenderness Thoracic/Lumbar Spine: thoracic and lumbar spine normal to inspection Skin General skin exam: no rashes or lesions noted Neuro General: patient oriented x3 and moves all extremities Cranial nerves: Yes Equal, round and reactive pupils present Cognition (Neuro): normal cognition Gait exam (Neuro): Normal gait present Motor exam (neuro): 5/5 motor strength present throughout Sensory Exam: Normal double simultaneous stimulation for sensation Extrem General: Yes normal to inspection, Yes no pedal edema and Yes no calf tenderness Course Course Course Narrative: Labs are unremarkable. Chest x-ray shows no acute finding. EKG is negative for ischemia. Overall patient appears well. Likely costochondritis. Recommend patient follow up outpatient with his primary care doctor for any persistent symptoms. Reviewed worrisome signs and symptoms of when to return to the emergency department. Comfortable discharge home. Medical Decision Making MDM Narrative Medical decision making narrative: 21-year-old male here with left-sided chest pain since last night that is worsened with deep breathing, movement of the left arm and palpation. No associated cough, shortness of breath, dizziness, palpitations, leg swelling leg pain Will check labs, EKG, chest x-ray -perc score 0. Low concern for PE. No hypoxia, no tachypnea, no tachycardia, no clinical findings concerning for DVT -heart score 0. Low concern for ACS with symptoms since last night with negative troponin EKG Differential Diagnosis Differential Diagnosis: pe, acs, costochondritis, pneumo Medical Records Medical records reviewed: Yes I reviewed the patient's medical records. Lab Data Lab results reviewed: Yes I reviewed the patient's lab results. Result diagrams: 06/05/22 18:43 06/05/22 18:43 Labs: Lab Results 06/05/22 06/05/22 06/05/22 Range/Units 18:43 18:43 18:43 WBC 8.5 (4.8-10.8) X10*3/uL RBC 4.60 (4.60-5.80) X10*6/uL Hgb 13.8 L (14.0-18.0) g/dl Hct 42.2 (42.0-52.0) % MCV 91.7 (80.0-98.0) fL MCH 30.0 (27.0-33.0) pg MCHC 32.7 (31.0-36.0) g/dl RDW 13.2 (11.0-16.0) % Plt Count 204 (160-400) X10*3/uL MPV 10.4 (9.4-12.4) fL Immature Gran % (Auto) 0.4 (0.0-0.4) % Neut % (Auto) 37.6 L (45-73) % Lymph % (Auto) 43.7 H (20-40) % Haywood % (Auto) 10.5 (2-11) % Eos % (Auto) 7.3 H (0-4) % Baso % (Auto) 0.5 (0-2) % Lymph # (Auto) 3.7 (1.2-4.9) X10*3/uL Haywood # (Auto) 0.9 (0.1-1.2) X10*3/uL Eos # (Auto) 0.6 H (0.0-0.4) X10*3/uL Baso # (Auto) 0.0 (0.0-0.2) X10*3/uL Abs Immat Gran (auto) 0.03 (0.00-0.03) X10*3/uL Absolute Neuts (auto) 3.2 (2.0-8.3) x10*3/uL Absolute Nucleated RBC 0.000 (0.0-0.012) X10*3/uL Nucleated RBC % (auto) 0.0 (0.0-0.2) /100WBC PT 11.9 (10.0-13.1) SEC INR 1.0 (0.9-1.1) Sodium 142 (135-145) mmol/L Potassium 4.9 (3.3-5.1) mmol/L Chloride 107 (96-108) mmol/L Carbon Dioxide 27 (22-29) mmol/L Anion Gap 13 (12-20) BUN 13 (9-16) mg/dL Creatinine 1.03 (0.5-1.4) mg/dL Estim Creat Clear Calc 193.1 Estimated GFR > 60 Random Glucose 90 (60-115) mg/dL Calcium 9.6 (8.4-10.2) mg/dL Total Bilirubin 0.3 (0.0-1.0) mg/dL Direct Bilirubin 0.2 (0.0-0.5) mg/dL AST 37 (5-37) U/L ALT 50 H (0-40) U/L Alkaline Phosphatase 96 (39-117) U/L Troponin I High Sens (<3.5-35.0) ng/L Total Protein 7.4 (6.5-8.0) g/dL Albumin 3.9 (3.5-5.0) g/dL 06/05/22 Range/Units 18:43 WBC (4.8-10.8) X10*3/uL RBC (4.60-5.80) X10*6/uL Hgb (14.0-18.0) g/dl Hct (42.0-52.0) % MCV (80.0-98.0) fL MCH (27.0-33.0) pg MCHC (31.0-36.0) g/dl RDW (11.0-16.0) % Plt Count (160-400) X10*3/uL MPV (9.4-12.4) fL Immature Gran % (Auto) (0.0-0.4) % Neut % (Auto) (45-73) % Lymph % (Auto) (20-40) % Haywood % (Auto) (2-11) % Eos % (Auto) (0-4) % Baso % (Auto) (0-2) % Lymph # (Auto) (1.2-4.9) X10*3/uL Haywood # (Auto) (0.1-1.2) X10*3/uL Eos # (Auto) (0.0-0.4) X10*3/uL Baso # (Auto) (0.0-0.2) X10*3/uL Abs Immat Gran (auto) (0.00-0.03) X10*3/uL Absolute Neuts (auto) (2.0-8.3) x10*3/uL Absolute Nucleated RBC (0.0-0.012) X10*3/uL Nucleated RBC % (auto) (0.0-0.2) /100WBC PT (10.0-13.1) SEC INR (0.9-1.1) Sodium (135-145) mmol/L Potassium (3.3-5.1) mmol/L Chloride (96-108) mmol/L Carbon Dioxide (22-29) mmol/L Anion Gap (12-20) BUN (9-16) mg/dL Creatinine (0.5-1.4) mg/dL Estim Creat Clear Calc Estimated GFR Random Glucose (60-115) mg/dL Calcium (8.4-10.2) mg/dL Total Bilirubin (0.0-1.0) mg/dL Direct Bilirubin (0.0-0.5) mg/dL AST (5-37) U/L ALT (0-40) U/L Alkaline Phosphatase (39-117) U/L Troponin I High Sens < 3.5 (<3.5-35.0) ng/L Total Protein (6.5-8.0) g/dL Albumin (3.5-5.0) g/dL Imaging Data Chest x-ray: Attestation: I personally reviewed and interpreted this imaging study as follows: Radiologist's impression: [address] [address] XRay Report Signed Patient: German Casillas MR#: [id number] : 2000 Acct:[id number] Age/Sex: 21 / M ADM Date: 06/05/22 Loc: .ED Attending Dr: Ordering Physician: Radha Jin NP Date of Service: 06/05/22 Procedure(s): XR chest 2V Accession Number(s): [id number] cc: Radha Jin NP~ EXAMINATION: XR CHEST CLINICAL INFORMATION: Chest pain COMPARISON: Chest radiograph 05/28/2022. TECHNIQUE: 2 views of the chest were obtained. FINDINGS: Normal appearance of the cardiomediastinal structures. No effusions or pneumothoraces. No focal pulmonary consolidation. Normal pattern of pulmonary vasculature. XR/XR chest 2V IMPRESSION: No acute cardiopulmonary abnormalities. ECG Data Attestation: I personally reviewed and interpreted this ECG as follows: Interpretation: Normal sinus rhythm with a rate of 77, normal PA, normal QRS, normal QT Discharge Plan Discharge Clinical Impression: Costochondritis Patient Disposition: Home, Self-Care Instructions: Costochondritis (ED) Additional Instructions: Your blood work, EKG and chest x-ray are reassuring Take Motrin for pain as needed Follow-up with your PCP for persistent symptoms Prescriptions: No Action docusate sodium 100 mg capsule 1 cap PO BID quetiapine 400 mg tablet 2 tab PO BEDTIME acetaminophen 325 mg Tablet 650 mg PO Q6H PRN (Reason: Pain (Scale Score 1-3)) sennosides [senna] 8.6 mg Tablet 8.6 mg PO BEDTIME propranolol 160 mg Capsule,Extended Release 24 Hr 160 mg PO DAILY polyethylene glycol 3350 [Miralax] 17 gram Powder In Packet 17 g PO BID sildenafil 50 mg Tablet 50 mg PO DAILY PRN (Reason: Sexual Activity) Rx Instructions: administer 30 minutes to 4 hours before activity ibuprofen 800 mg Tablet 800 mg PO BID PRN (Reason: Pain) chlorpromazine 100 mg Tablet 100 mg PO BID PRN (Reason: PRN) melatonin 3 mg Tablet 3 mg PO BEDTIME divalproex 500 mg Tablet,Delayed Release (Dr/Ec) 1,000 mg PO BID lorazepam 2 mg Tablet 2 mg PO TID PRN (Reason: Anxiety) chlorpromazine 25 mg Tablet 50 mg PO TID chlorhexidine gluconate [Peridex] 0.12 % Mouthwash 15 ml BUCCAL BEDTIME guanfacine 4 mg Tablet Extended Release 24 Hr 4 mg PO BEDTIME Referrals: Physician,Unknown J [Primary Care Provider] -
[2022-06-05] MEDS: Acetaminophen 325 MG TABLET 975 MG PO (18:29)
[2022-06-05 18:50] LABS: MANUAL DIFF FLAG NO
[2022-06-05 18:51] LABS: Basophils Percent Auto 0.5 % (0-2); Eosinophils Absolute Auto 0.6 X10*3/uL (0.0-0.4); Eosinophils Percent Auto 7.3 % (0-4); Hematocrit 42.2 % (42.0-52.0); Hemoglobin 13.8 g/dl (14.0-18.0); Imm Gran Abs Auto 0.03 X10*3/uL (0.00-0.03); Imm Gran Pct Auto 0.4 % (0.0-0.4); Lymphocytes Absolute Auto 3.7 X10*3/uL (1.2-4.9); Lymphocytes Percent Auto 43.7 % (20-40); Mean Corpuscular HGB Conc 32.7 g/dl (31.0-36.0); Mean Corpuscular Volume 91.7 fL (80.0-98.0); Mean Platelet Volume 10.4 fL (9.4-12.4); Monocytes Absolute Auto 0.9 X10*3/uL (0.1-1.2); Monocytes Percent Auto 10.5 % (2-11); Neutrophils Absolute Auto 3.2 x10*3/uL (2.0-8.3); Neutrophils Percent Auto 37.6 % (45-73); Platelet Count 204 X10*3/uL (160-400); Red Cell Distribution Width 13.2 % (11.0-16.0); White Blood Count 8.5 X10*3/uL (4.8-10.8)
[2022-06-05 18:57] LABS: Prothrombin Time 11.9 SEC (10.0-13.1)
[2022-06-05 19:08] LABS: Alanine Aminotransferase 50 U/L (0-40); Albumin Level 3.9 g/dL (3.5-5.0); Alkaline Phosphatase 96 U/L (39-117); Anion Gap 13 (12-20); Aspartate Amino Transferase 37 U/L (5-37); Bilirubin Direct 0.2 mg/dL (0.0-0.5); Bilirubin Total 0.3 mg/dL (0.0-1.0); Blood Urea Nitrogen 13 mg/dL (9-16); Calcium 9.6 mg/dL (8.4-10.2); Carbon Dioxide 27 mmol/L (22-29); Chloride 107 mmol/L (96-108); Creatinine Clr Calc Pharmacy 193.1; Estimated Glomerular Filt Rate > 60; Glucose Random 90 mg/dL (60-115); Potassium 4.9 mmol/L (3.3-5.1); Sodium 142 mmol/L (135-145); Total Protein 7.4 g/dL (6.5-8.0)
[2022-06-05 19:10] LABS: Troponin-I High Sensitivity < 3.5 ng/L (<3.5-35.0)
--- NOTE | 2022-06-05 20:17 | PC.NURSE ---
German to be discharged back to assisted, Neel thomson was told by assisted that person to shredder picker German was here, This RN checked waiting room, no one here for German, this RN spoke with assisted and was told person was outside, this RN checked outside ER waiting room, no one here for German, this RN spoke with assisted again and was told person to shredder picker German would be here in 10 minutes, German starting to get aggravated, this Rn spoke with German and German is calm/cooperative and understands that some one will be here in 10 minutes.
== END 2022-06-05 20:41 | disposition home or self-care (01) ==
PROVIDERS: Nurse Practitioner Family; Emergency Provider Emergency Medicine
DX: R07.89 Other chest pain (principal); M94.0 Chondrocostal junction syndrome [Tietze]; F17.210 Nicotine dependence, cigarettes, uncomplicated; Z71.6 Tobacco abuse counseling; Z79.899 Other long term (current) drug therapy
CPT/HCPCS: 36415; 71046; 80048; 80076; 84484; 85025; 85610; 93005; 99283

== ENCOUNTER 2022-06-13 16:50 | Emergency (ER) | payer MEDICAID, SELFPAY ==
[2022-06-13 17:06] VITALS: BP 130/86; PULSE 80; O2SAT 95
[2022-06-13 17:15] VITALS: BP 123/70; PULSE 92; RESP 20; TEMP 36.7; O2SAT 96; BMI 45.3
--- NOTE | 2022-06-13 17:17 | PC.NURSE ---
CP x 2 days, calm and cooperative at this time, Pain 9/10 L sided. PMHX of same as well as anxiety. NSR on monitor. Call moreira within reach. will continue to monitor.
--- NOTE | 2022-06-13 17:20 | ECG_ITS ---
Test Reason : chest pain Blood Pressure : / mmHG Vent. Rate : 088 BPM Atrial Rate : 088 BPM P-R Int : 146 ms QRS Dur : 082 ms QT Int : 348 ms P-R-T Axes : 037 013 025 degrees QTc Int : 421 ms Normal sinus rhythm Normal ECG When compared with ECG of 05-JUN-2022 18:19, No significant change was found Referred By: Rosa Page Electronically Signed By:Zaki Graham
--- NOTE | 2022-06-13 17:29 | ED_ITS ---
HPI - Chest Pain General Chief Complaint: Chest Pain Stated Complaint: CP for two days Time Seen by Provider: 06/13/22 17:20 Source: patient and EMS Mode of arrival: EMS Limitations: no limitations History of Present Illness HPI narrative: 21-year-old male past medical history of XXY syndrome, developmental disabil ity,?[facility] with complaints of chest pain x2 days. Patient tells me that the chest pain has been intermittent in nature, substernal, at time radiates down his left arm, he tells me this has happened to him before. He tells me does not know why this happens. He denies any drugs, alcohol or tobacco. Patient denies palpitations, nausea, vomiting, numbness, tingling, shortness of breath, fevers, chills, abdominal pain, headache, dizziness, vision changes. Denies anxiety MD complaint: chest pain Related Data Home Medications Medication Instructions Recorded Confirmed acetaminophen 325 mg tablet 650 mg PO Q6H PRN Pain (Scale 05/29/22 05/29/22 Score 1-3) chlorhexidine gluconate 0.12 % 15 ml buccal BEDTIME 05/29/22 05/29/22 mouthwash (Peridex) chlorpromazine 100 mg tablet 100 mg PO BID PRN PRN 05/29/22 05/29/22 chlorpromazine 25 mg tablet 50 mg PO TID 05/29/22 05/29/22 divalproex 500 mg tablet,delayed 1,000 mg PO BID 05/29/22 05/29/22 release docusate sodium 100 mg capsule 1 cap PO BID 05/29/22 05/29/22 guanfacine 4 mg tablet,extended 4 mg PO BEDTIME 05/29/22 05/29/22 release 24 hr ibuprofen 800 mg tablet 800 mg PO BID PRN Pain 05/29/22 05/29/22 lorazepam 2 mg tablet 2 mg PO TID PRN Anxiety 05/29/22 05/29/22 melatonin 3 mg tablet 3 mg PO BEDTIME 05/29/22 05/29/22 polyethylene glycol 3350 17 gram 17 g PO BID 05/29/22 05/29/22 oral powder packet (Miralax) propranolol 160 mg capsule,24 160 mg PO DAILY 05/29/22 05/29/22 hr,extended release quetiapine 400 mg tablet 2 tab PO BEDTIME 05/29/22 05/29/22 sennosides 8.6 mg tablet (senna) 8.6 mg PO BEDTIME 05/29/22 05/29/22 sildenafil 50 mg tablet 50 mg PO DAILY PRN Sexual Activity 05/29/22 05/29/22 Allergies Allergy/AdvReac Type Severity Reaction Status Date / Time methylphenidate Allergy Unknown UNKNOWN Verified 05/13/22 10:50 [From RITALIN] shrimp [SHRIMP] Allergy Unknown HIVES Verified 05/13/22 10:50 haloperidol [From Haldol] Allergy Involuntary Verified 05/13/22 10:50 Spasms Review of Systems Review of Systems: Constitutional : No Weight loss, No Fever, No Chills, No Fatigue, No Malaise ENT/Mouth : No sore throat, No Rhinorrhea Eyes: No Eye Pain, No Swelling, No Redness Cardiovascular : + Chest Pain, No SOB, No Dyspnea on Exertion, No Orthopnea, No Edema, No Palpitations Respiratory : No Cough, No Sputum, No Wheezing Gastrointestinal : No Nausea, No Vomiting, No Diarrhea, No Constipation, No abdominal Pain, No Hematochezia, No Melena Genitourinary : No Dysuria, No Urinary Frequency, No Hematuria, Musculoskeletal : No joint pain, No Myalgias, No Joint Swelling Skin : No Skin Lesions, No rash Neuro : No Weakness, No Numbness, No Dizziness, No Headache Psych : No Anxiety/Panic, No Depression All other systems reviewed and are negative Yes all other systems are reviewed and are negative [facility] [place] Past Medical History Attestation statement: The following information was validated with the patient. Source: old records reviewed and nursing notes reviewed Medical History Adjustment disorder Chronic abdominal pain Developmental disability Dyspnea Seborrheic dermatitis Seizures XXYY syndrome Surgical History History of testicular surgery Family History Family History Father No problems noted. Mother Hypertension Diabetes Other History of brain cancer Social History Social History Housing: Assisted Living Facility Alcohol intake: never Patient Tobacco Use Status: Current everyday Tobacco user Tobacco use type: Cigarette Years Smoked: 16 years old e-Cigarette/Vaping Use: Currently Using Substance Use Type: Crack/Cocaine and Marijuana Advance Directives: No Advance Directives Information Provided: No service: No Current occupational status: disabled Cognitive needs: Yes Hearing needs: No Vision needs: No Physical Exam Vital Signs: Vital Signs: Last Vital Signs Temp 98.0 F 06/13/22 17:15 Pulse 92 06/13/22 17:15 Resp 20 06/13/22 17:15 BP 123/70 06/13/22 17:15 Pulse Ox 96 06/13/22 17:15 O2 Del Method 06/13/22 17:15 BMI result Body Mass Index 45.3 VSS Appearance: Alert.? Oriented X3.? No acute distress.? Head: Normocephalic, atraumatic, no step-offs or deformities Eyes: Pupils equal, round and reactive to light.? ENT: Pharynx normal.? Neck: Normal inspection.? Neck supple.? CVS: Normal heart rate and rhythm.? Pulses normal.? Respiratory: No respiratory distress.? Breath sounds normal.? Abdomen: Soft and nontender.? Skin: Skin warm and dry.? Normal skin color.? Normal skin turgor.? Extremities: No lower extremity edema.? No calf ttp, negative darlene. 5/5 strength to bilateral upper and lower extremities Neuro: Oriented X 3.? No motor deficit.? No sensory deficit. CN 2-12 intact MDM - Chest Pain MDM Narrative Medical decision making narrative: 12[birth year] 21 yo m presenting w/ chest pain X2 days, similar to previous episodes. Not anticoagulated. No significant cardiac history. Physical examination benign. Low suspicion for PE perc negative. Unlikely that this is ACS. History and physical exam not consistent with pericarditis, pneumonia, dissection. Plan at this time is basic labs, EKG. Medical Records Data Attestation: I reviewed the patient's medical records. Lab Data Attestation: I reviewed the patient's lab results. Result diagrams: 06/13/22 17:52 06/13/22 17:52 Labs: Lab Results 06/13/22 06/13/22 06/13/22 Range/Units 17:52 17:52 17:52 WBC 9.2 (4.8-10.8) X10*3/uL RBC 4.52 L (4.60-5.80) X10*6/uL Hgb 13.4 L (14.0-18.0) g/dl Hct 41.0 L (42.0-52.0) % MCV 90.7 (80.0-98.0) fL MCH 29.6 (27.0-33.0) pg MCHC 32.7 (31.0-36.0) g/dl RDW 13.2 (11.0-16.0) % Plt Count 191 (160-400) X10*3/uL MPV 10.4 (9.4-12.4) fL Immature Gran % (Auto) 0.4 (0.0-0.4) % Neut % (Auto) 34.5 L (45-73) % Lymph % (Auto) 45.7 H (20-40) % [place] % (Auto) 10.0 (2-11) % Eos % (Auto) 8.9 H (0-4) % Baso % (Auto) 0.5 (0-2) % Lymph # (Auto) 4.2 (1.2-4.9) X10*3/uL [place] # (Auto) 0.9 (0.1-1.2) X10*3/uL Eos # (Auto) 0.8 H (0.0-0.4) X10*3/uL Baso # (Auto) 0.1 (0.0-0.2) X10*3/uL Abs Immat Gran (auto) 0.04 H (0.00-0.03) X10*3/uL Absolute Neuts (auto) 3.2 (2.0-8.3) x10*3/uL Absolute Nucleated RBC 0.000 (0.0-0.012) X10*3/uL Nucleated RBC % (auto) 0.0 (0.0-0.2) /100WBC Sodium 139 (135-145) mmol/L Potassium 4.4 (3.3-5.1) mmol/L Chloride 108 (96-108) mmol/L Carbon Dioxide 21 L (22-29) mmol/L Anion Gap 14 (12-20) BUN 12 (9-16) mg/dL Creatinine 0.87 (0.5-1.4) mg/dL Estim Creat Clear Calc 229.3 Estimated GFR > 60 Random Glucose 137 H D (60-115) mg/dL Calcium 8.9 D (8.4-10.2) mg/dL Magnesium 1.7 (1.6-2.6) mg/dL Total Bilirubin < 0.2 (0.0-1.0) mg/dL AST 31 (5-37) U/L ALT 40 (0-40) U/L Alkaline Phosphatase 106 (39-117) U/L Troponin I High Sens < 3.5 (<3.5-35.0) ng/L B-Natriuretic Peptide 16 (<100) pg/mL Total Protein 7.3 (6.5-8.0) g/dL Albumin 3.7 (3.5-5.0) g/dL ECG Data ECG #1: Attestation: I personally reviewed and interpreted this ECG as follows: ECG interpretation date: 06/13/22 ECG interpretation time: 18:39 Prior ECG tracings: available for review Interpretation: Ventricular rate of 88, AK normal, QRS normal, QT/QTC normal. EKG with normal sinus rhythm no ST elevations or inversions, no acute changes when compared to previous Critical Care Time Critical Care Time Critical Care Time: No Discharge Plan Discharge Clinical Impression: Chest pain not due to acute coronary syndrome, Anxiety Patient Disposition: Home, Self-Care Instructions: Chest Pain (ED), Chest Wall Pain (ED) Additional Instructions: Take your medications as prescribed. If you were prescribed antibiotics today, it is important that you take your medication to their entirety, do not skip any doses, do not finish them early. Follow-up with your primary care provider this week. Return to the emergency department with new or worsening symptoms. Such as fevers, chills, chest pain, shortness of breath, nausea, vomiting, dizziness, headache, vision changes, lethargy In case of emergency call 911 Prescriptions: No Action docusate sodium 100 mg capsule 1 cap PO BID quetiapine 400 mg tablet 2 tab PO BEDTIME acetaminophen 325 mg Tablet 650 mg PO Q6H PRN (Reason: Pain (Scale Score 1-3)) sennosides [senna] 8.6 mg Tablet 8.6 mg PO BEDTIME propranolol 160 mg Capsule,Extended Release 24 Hr 160 mg PO DAILY polyethylene glycol 3350 [Miralax] 17 gram Powder In Packet 17 g PO BID sildenafil 50 mg Tablet 50 mg PO DAILY PRN (Reason: Sexual Activity) Rx Instructions: administer 30 minutes to 4 hours before activity ibuprofen 800 mg Tablet 800 mg PO BID PRN (Reason: Pain) chlorpromazine 100 mg Tablet 100 mg PO BID PRN (Reason: PRN) melatonin 3 mg Tablet 3 mg PO BEDTIME divalproex 500 mg Tablet,Delayed Release (Dr/Ec) 1,000 mg PO BID lorazepam 2 mg Tablet 2 mg PO TID PRN (Reason: Anxiety) chlorpromazine 25 mg Tablet 50 mg PO TID chlorhexidine gluconate [Peridex] 0.12 % Mouthwash 15 ml BUCCAL BEDTIME guanfacine 4 mg Tablet Extended Release 24 Hr 4 mg PO BEDTIME Referrals: Physician,Unknown J [Primary Care Provider] - 2 days
[2022-06-13 17:56] LABS: MANUAL DIFF FLAG NO
[2022-06-13 17:59] LABS: Basophils Absolute Auto 0.1 X10*3/uL (0.0-0.2); Basophils Percent Auto 0.5 % (0-2); Eosinophils Absolute Auto 0.8 X10*3/uL (0.0-0.4); Eosinophils Percent Auto 8.9 % (0-4); Hemoglobin 13.4 g/dl (14.0-18.0); Imm Gran Abs Auto 0.04 X10*3/uL (0.00-0.03); Imm Gran Pct Auto 0.4 % (0.0-0.4); Lymphocytes Absolute Auto 4.2 X10*3/uL (1.2-4.9); Lymphocytes Percent Auto 45.7 % (20-40); Mean Corpuscular HGB Conc 32.7 g/dl (31.0-36.0); Mean Corpuscular Hemoglobin 29.6 pg (27.0-33.0); Mean Corpuscular Volume 90.7 fL (80.0-98.0); Mean Platelet Volume 10.4 fL (9.4-12.4); Monocytes Absolute Auto 0.9 X10*3/uL (0.1-1.2); Neutrophils Absolute Auto 3.2 x10*3/uL (2.0-8.3); Neutrophils Percent Auto 34.5 % (45-73); Platelet Count 191 X10*3/uL (160-400); Red Blood Count 4.52 X10*6/uL (4.60-5.80); Red Cell Distribution Width 13.2 % (11.0-16.0); White Blood Count 9.2 X10*3/uL (4.8-10.8)
[2022-06-13 18:24] LABS: Alanine Aminotransferase 40 U/L (0-40); Albumin Level 3.7 g/dL (3.5-5.0); Alkaline Phosphatase 106 U/L (39-117); Anion Gap 14 (12-20); Aspartate Amino Transferase 31 U/L (5-37); Bilirubin Total < 0.2 mg/dL (0.0-1.0); Blood Urea Nitrogen 12 mg/dL (9-16); Calcium 8.9 mg/dL (8.4-10.2); Carbon Dioxide 21 mmol/L (22-29); Chloride 108 mmol/L (96-108); Creatinine Clr Calc Pharmacy 229.3; Estimated Glomerular Filt Rate > 60; Glucose Random 137 mg/dL (60-115); Magnesium 1.7 mg/dL (1.6-2.6); Potassium 4.4 mmol/L (3.3-5.1); Sodium 139 mmol/L (135-145); Total Protein 7.3 g/dL (6.5-8.0)
[2022-06-13 18:30] LABS: B Type Natriuretic Peptide 16 pg/mL (<100); Troponin-I High Sensitivity < 3.5 ng/L (<3.5-35.0)
== END 2022-06-13 18:55 | disposition home or self-care (01) ==
PROVIDERS: Physician Assistant; Emergency Provider Emergency Medicine
DX: R07.89 Other chest pain (principal); M79.602 Pain in left arm; R06.02 Shortness of breath; F17.210 Nicotine dependence, cigarettes, uncomplicated; Z71.6 Tobacco abuse counseling; F14.10 Cocaine abuse, uncomplicated; F12.10 Cannabis abuse, uncomplicated; Z79.899 Other long term (current) drug therapy
CPT/HCPCS: 36415; 80053; 83735; 83880; 84484; 85025; 93005; 99284; 99285

== ENCOUNTER 2022-06-14 17:41 | Emergency (ER) | payer MEDICAID, SELFPAY ==
--- NOTE | ~2022-06-14 | XR_ITS ---
EXAMINATION: LEFT HAND AND WRIST CLINICAL INFORMATION: Left hand pain after punching wall COMPARISON: 03/27/2022 TECHNIQUE: 4 views of the hand and wrist. FINDINGS: No significant bone, joint or soft tissue abnormality is seen. No fracture is detected. XR/XR hand wrist LT IMPRESSION: No fractures.
--- NOTE | 2022-06-14 17:45 | ED_ITS ---
HPI - Extremity Injury (Upper) General Chief Complaint: Extremity Injury, Upper Stated Complaint: L HAND PAIN S/P PUNCHING WALL FROM [facility] Time Seen by Provider: 06/14/22 17:45 Source: patient Mode of arrival: ambulatory Limitations: no limitations History of Present Illness HPI narrative: 21-year-old male past medical history of XXY syndrome, developmental disability,?[facility] by ambulance [facility] with complaints of left hand pain status post punching a wall. Patient tells me that members from the prison upset him therefore he punched the wall. He tells me he is still feeling angry at this time. He is having pain with range of motion to the left hand. He tells me hurts when he picks things up any hurts to move all his fingers. Patient denies numbness, tingling, fevers, chills, chest pain, shortness of breath. MD complaint: injury to: left Related Data Home Medications Medication Instructions Recorded Confirmed acetaminophen 325 mg tablet 650 mg PO Q6H PRN Pain (Scale 05/29/22 05/29/22 Score 1-3) chlorhexidine gluconate 0.12 % 15 ml buccal BEDTIME 05/29/22 05/29/22 mouthwash (Peridex) chlorpromazine 100 mg tablet 100 mg PO BID PRN PRN 05/29/22 05/29/22 chlorpromazine 25 mg tablet 50 mg PO TID 05/29/22 05/29/22 divalproex 500 mg tablet,delayed 1,000 mg PO BID 05/29/22 05/29/22 release docusate sodium 100 mg capsule 1 cap PO BID 05/29/22 05/29/22 guanfacine 4 mg tablet,extended 4 mg PO BEDTIME 05/29/22 05/29/22 release 24 hr ibuprofen 800 mg tablet 800 mg PO BID PRN Pain 05/29/22 05/29/22 lorazepam 2 mg tablet 2 mg PO TID PRN Anxiety 05/29/22 05/29/22 melatonin 3 mg tablet 3 mg PO BEDTIME 05/29/22 05/29/22 polyethylene glycol 3350 17 gram 17 g PO BID 05/29/22 05/29/22 oral powder packet (Miralax) propranolol 160 mg capsule,24 160 mg PO DAILY 05/29/22 05/29/22 hr,extended release quetiapine 400 mg tablet 2 tab PO BEDTIME 05/29/22 05/29/22 sennosides 8.6 mg tablet (senna) 8.6 mg PO BEDTIME 05/29/22 05/29/22 sildenafil 50 mg tablet 50 mg PO DAILY PRN Sexual Activity 05/29/22 05/29/22 Allergies Allergy/AdvReac Type Severity Reaction Status Date / Time methylphenidate Allergy Unknown UNKNOWN Verified 05/13/22 10:50 [From RITALIN] shrimp [SHRIMP] Allergy Unknown HIVES Verified 05/13/22 10:50 haloperidol [From Haldol] Allergy Involuntary Verified 05/13/22 10:50 Spasms Review of Systems Review of Systems: Constitutional : No Weight loss, No Fever, No Chills, No Fatigue, No Malaise ENT/Mouth : No sore throat, No Rhinorrhea Eyes: No Eye Pain, No Swelling, No Redness Cardiovascular : No Chest Pain, No SOB, No Dyspnea on Exertion, No Orthopnea, No Edema, No Palpitations Respiratory : No Cough, No Sputum, No Wheezing Gastrointestinal : No Nausea, No Vomiting, No Diarrhea, No Constipation, No abdominal Pain, No Hematochezia, No Melena Genitourinary : No Dysuria, No Urinary Frequency, No Hematuria, Musculoskeletal : + joint pain, No Myalgias, No Joint Swelling Skin : No Skin Lesions, No rash Neuro : No Weakness, No Numbness, No Dizziness, No Headache All other systems reviewed and are negative Yes all other systems are reviewed and are negative [facility] Past Medical History Attestation statement: The following information was validated with the patient. Source: old records reviewed and nursing notes reviewed Medical History Adjustment disorder Chronic abdominal pain Developmental disability Dyspnea Seborrheic dermatitis Seizures XXYY syndrome Surgical History History of testicular surgery Family History Family History Father No problems noted. Mother Hypertension Diabetes Other History of brain cancer Social History Social History Housing: Assisted Living Facility Alcohol intake: never Patient Tobacco Use Status: Current everyday Tobacco user Tobacco use type: Cigarette Years Smoked: 16 years old e-Cigarette/Vaping Use: Currently Using Substance Use Type: Crack/Cocaine and Marijuana Advance Directives: No Advance Directives Information Provided: No service: No Current occupational status: disabled Cognitive needs: Yes Hearing needs: No Vision needs: No Physical Exam Vital Signs: Vital Signs: Last Vital Signs Temp 98.0 F 06/14/22 17:55 Pulse 81 06/14/22 17:55 Resp 18 06/14/22 17:55 BP 127/79 06/14/22 17:55 Pulse Ox 98 06/14/22 17:55 O2 Del Method 06/14/22 17:55 BMI result Body Mass Index 41.5 VSS Appearance: Alert.? Oriented X3.? No acute distress.? Head: Normocephalic, atraumatic, no step-offs or deformities Eyes: Pupils equal, round and reactive to light.? ENT: Pharynx normal.? Neck: Normal inspection.? Neck supple.? CVS: Normal heart rate and rhythm.? Pulses normal.? Respiratory: No respiratory distress.? Breath sounds normal.? Abdomen: Soft and nontender.? Skin: Skin warm and dry.? Normal skin color.? Normal skin turgor.? Extremities: No lower extremity edema.? No calf ttp. 5/5 strength to bilateral upper and lower extremities 2+ radial pulses equal bilateral. Capillary refill less than 2 seconds to bilateral upper extremities. Sensory and motor intact to bilateral upper and lower extremities. Slightly small left hand. Pain with range of motion to left wrist/fingers. no wrist drop b/l. Neuro: Oriented X 3.? No motor deficit.? No sensory deficit. CN 2-12 intact Course Reevaluation(s) Reevaluation #1: X-ray of the hand with no acute findings. Patient requesting an Blaze wrap. Blaze wrap was applied to the area. Advised to return with new or worsening symptoms. Outlined he is on his discharge. At this time patient will be discharged home. Gave him information for ortho fu if pain containes > 2 weeks. Time: 19:16 MDM - Extremity Injury (Upper) [facility] Narrative Medical decision making narrative: [age] yo m presenting with left hand pain status post punching a wall. Physical exam significant for slightly swollen left hand. Neurovascularly intact. Plan at this time is to obtain imaging. Will rule out fractures or dislocations although unlikely. Low suspicion for ligament or tendon injury. Medical Records Attestation: I reviewed the patient's medical records. Lab Data Attestation: I reviewed the patient's lab results. Critical Care Time Critical Care Time Critical Care Time: No Discharge Plan Discharge Clinical Impression: Hand pain, left Patient Disposition: Home, Self-Care Additional Instructions: Take your medications as prescribed. If you were prescribed antibiotics today, it is important that you take your medication to their entirety, do not skip any doses, do not finish them early. Follow-up with your primary care provider this week. Return to the emergency department with new or worsening symptoms. Such as fevers, chills, chest pain, shortness of breath, nausea, vomiting, dizziness, headache, vision changes, lethargy, numbness, tingling. In case of emergency call 911 Rest, ice, compress and elevate extremity. Apply ice to area. Prescriptions: No Action docusate sodium 100 mg capsule 1 cap PO BID quetiapine 400 mg tablet 2 tab PO BEDTIME acetaminophen 325 mg Tablet 650 mg PO Q6H PRN (Reason: Pain (Scale Score 1-3)) sennosides [senna] 8.6 mg Tablet 8.6 mg PO BEDTIME propranolol 160 mg Capsule,Extended Release 24 Hr 160 mg PO DAILY polyethylene glycol 3350 [Miralax] 17 gram Powder In Packet 17 g PO BID sildenafil 50 mg Tablet 50 mg PO DAILY PRN (Reason: Sexual Activity) Rx Instructions: administer 30 minutes to 4 hours before activity ibuprofen 800 mg Tablet 800 mg PO BID PRN (Reason: Pain) chlorpromazine 100 mg Tablet 100 mg PO BID PRN (Reason: PRN) melatonin 3 mg Tablet 3 mg PO BEDTIME divalproex 500 mg Tablet,Delayed Release (Dr/Ec) 1,000 mg PO BID lorazepam 2 mg Tablet 2 mg PO TID PRN (Reason: Anxiety) chlorpromazine 25 mg Tablet 50 mg PO TID chlorhexidine gluconate [Peridex] 0.12 % Mouthwash 15 ml BUCCAL BEDTIME guanfacine 4 mg Tablet Extended Release 24 Hr 4 mg PO BEDTIME Referrals: [facility] [place] Orthopedic Surgeons [Provider Group] - 2 weeks
[2022-06-14 17:55] VITALS: BP 127/79; PULSE 81; RESP 18; TEMP 36.7; O2SAT 98; BMI 41.5
--- NOTE | 2022-06-14 19:37 | MHC.CARE ---
Staff on their way to pick pt up.
== END 2022-06-14 20:01 | disposition home or self-care (01) ==
PROVIDERS: Emergency Provider Internal Medicine
DX: M79.642 Pain in left hand (principal); F17.210 Nicotine dependence, cigarettes, uncomplicated; Z71.6 Tobacco abuse counseling
CPT/HCPCS: 73110; 73130; 99282; 99283

== ENCOUNTER 2022-06-15 20:55 | Emergency (ER) | payer MEDICAID, SELFPAY ==
--- NOTE | 2022-06-15 21:00 | ED.PSYCH ---
HPI - Psych General Chief Complaint: Psychiatric Symptoms Stated Complaint: si Source: patient and EMS Mode of arrival: EMS Limitations: no limitations History of Present Illness HPI Narrative: 21-year-old male presents via EMS for suicidal ideation. Patient states that does not feel himself. Denies medical complaints at this time. MD complaint: suicidal ideation Onset (ago): day(s) Duration: intermittent History of same: Yes Relieving factors: none Associated psychiatric symptoms: depression, suicidal ideation and racing thoughts Associated symptoms: denies other symptoms Treatments prior to arrival: none If self harm: admits thoughts of self harm Related Data Home Medications Medication Instructions Recorded Confirmed acetaminophen 325 mg tablet 650 mg PO Q6H PRN Pain (Scale 05/29/22 06/15/22 Score 1-3) chlorhexidine gluconate 0.12 % 15 ml buccal BEDTIME 05/29/22 05/29/22 mouthwash (Peridex) chlorpromazine 100 mg tablet 100 mg PO BID PRN PRN 05/29/22 06/15/22 chlorpromazine 25 mg tablet 50 mg PO TID 05/29/22 06/15/22 divalproex 500 mg tablet,delayed 1,000 mg PO BID 05/29/22 06/15/22 release docusate sodium 100 mg capsule 1 cap PO BID 05/29/22 06/15/22 guanfacine 4 mg tablet,extended 4 mg PO BEDTIME 05/29/22 06/15/22 release 24 hr ibuprofen 800 mg tablet 800 mg PO BID PRN Pain 05/29/22 06/15/22 melatonin 3 mg tablet 3 mg PO BEDTIME 05/29/22 06/15/22 polyethylene glycol 3350 17 gram 17 g PO BID 05/29/22 05/29/22 oral powder packet (Miralax) propranolol 160 mg capsule,24 160 mg PO DAILY 05/29/22 06/15/22 hr,extended release quetiapine 400 mg tablet 2 tab PO BEDTIME 05/29/22 06/15/22 sennosides 8.6 mg tablet (senna) 8.6 mg PO BEDTIME 05/29/22 05/29/22 sildenafil 50 mg tablet 50 mg PO DAILY PRN Sexual Activity 05/29/22 05/29/22 lorazepam 1 mg tablet tab PO 06/15/22 metformin 500 mg tablet 1 tab PO BID 06/15/22 06/15/22 Allergies Allergy/AdvReac Type Severity Reaction Status Date / Time methylphenidate Allergy Unknown UNKNOWN Verified 05/13/22 10:50 [From RITALIN] shrimp [SHRIMP] Allergy Unknown HIVES Verified 05/13/22 10:50 haloperidol [From Haldol] Allergy Involuntary Verified 05/13/22 10:50 Spasms Review of Systems Review of Systems: Constitutional: No Fever, No Chills ENT/Mouth: No Ear Pain, No Nasal Congestion, No sore throat Eyes: No Eye Pain, No Swelling, No Redness Cardiovascular: No Chest Pain, No SOB Respiratory: No Cough, No Sputum, No Dyspnea Gastrointestinal: No Nausea, No Vomiting, No Diarrhea, No Hematochezia, No Melena Genitourinary: No Dysuria, No Urinary Frequency, No Hematuria Musculoskeletal: No Myalgias Skin: No Skin Lesions, No rash Neuro: No Weakness, No Numbness, No Paresthesias, No Dizziness, No Headache Psych: positive Anxiety, positive Depression, positive SI Heme/Lymph: No Lymphadenopathy Endocrine: No Polyuria, No Polydipsia Yes all other systems are reviewed and are negative [facility] Past Medical History Attestation statement: The following information was validated with the patient. Source: old records reviewed Medical History Adjustment disorder Chronic abdominal pain Developmental disability Dyspnea Seborrheic dermatitis Seizures XXYY syndrome Surgical History History of testicular surgery Family History Family History Father No problems noted. Mother Hypertension Diabetes Other History of brain cancer Social History Social History Housing: Assisted Living Facility Alcohol intake: never Patient Tobacco Use Status: Current everyday Tobacco user Tobacco use type: Cigarette Years Smoked: 16 years old e-Cigarette/Vaping Use: Currently Using Substance Use Type: Crack/Cocaine and Marijuana Advance Directives: No Advance Directives Information Provided: No service: No Current occupational status: disabled Cognitive needs: Yes Hearing needs: No Vision needs: No Physical Exam Vital Signs: Vital Signs: Last Vital Signs Temp 98.0 F 06/15/22 22:00 Pulse 84 07/19/22 22:00 Resp 16 06/15/22 22:00 BP 103/55 L 06/15/22 22:00 Pulse Ox 99 06/15/22 22:00 O2 Del Method 06/15/22 22:00 BMI result Body Mass Index 45.3 Appearance: Alert. Oriented X3. No acute distress. Eyes: Pupils equal, round and reactive to light. ENT: Pharynx normal. Neck: Normal inspection. Neck supple. CVS: Normal heart rate and rhythm. Pulses normal. Respiratory: No respiratory distress. Breath sounds normal. Abdomen: Soft and nontender. Skin: Skin warm and dry. Normal skin color. Normal skin turgor. Extremities: Moves all extremities against resistance. Neuro: No motor deficit. No sensory deficit. Cranial nerves 2-12 intact. Course Course Course Narrative: 21-year-old male presents via EMS for suicidal ideation. Patient is not forthcoming about plan or events leading to his emotional distress. Patient has no medical complaints. Alert oriented x4. Answering questions with short and one-word answers. Will follow patient's care plan. 03:55 physician observation at this time. MDM - Psych Differential Diagnosis Differential diagnosis: Likely suicidal ideation Medical Records Attestation: I reviewed the patient's medical records. Lab Data Attestation: I reviewed the patient's lab results. Labs: Lab Results 06/15/22 06/15/22 Range/Units 21:27 22:13 Urine Opiates Screen Not Detected (Not Detect) Urine Fentanyl Screen Not Detected (Not Detect) Ur Barbiturates Screen Not Detected (Not Detect) Ur Phencyclidine Scrn Not Detected (Not Detect) Ur Amphetamines Screen Not Detected (Not Detect) U Benzodiazepines Scrn Not Detected (Not Detect) Urine Cocaine Screen Not Detected (Not Detect) U Marijuana (THC) Screen POSITIVE H (Not Detect) COVID-19 (JULISSA) Negative (Negative) COVID-19 Clin Com See Note Discharge Plan Discharge Clinical Impression: Suicidal ideation Patient Disposition: Still a Patient Prescriptions: No Action docusate sodium 100 mg capsule 1 cap PO BID quetiapine 400 mg tablet 2 tab PO BEDTIME acetaminophen 325 mg Tablet 650 mg PO Q6H PRN (Reason: Pain (Scale Score 1-3)) sennosides [senna] 8.6 mg Tablet 8.6 mg PO BEDTIME propranolol 160 mg Capsule,Extended Release 24 Hr 160 mg PO DAILY polyethylene glycol 3350 [Miralax] 17 gram Powder In Packet 17 g PO BID sildenafil 50 mg Tablet 50 mg PO DAILY PRN (Reason: Sexual Activity) Rx Instructions: administer 30 minutes to 4 hours before activity ibuprofen 800 mg Tablet 800 mg PO BID PRN (Reason: Pain) chlorpromazine 100 mg Tablet 100 mg PO BID PRN (Reason: PRN) melatonin 3 mg Tablet 3 mg PO BEDTIME divalproex 500 mg Tablet,Delayed Release (Dr/Ec) 1,000 mg PO BID chlorpromazine 25 mg Tablet 50 mg PO TID chlorhexidine gluconate [Peridex] 0.12 % Mouthwash 15 ml BUCCAL BEDTIME guanfacine 4 mg Tablet Extended Release 24 Hr 4 mg PO BEDTIME metformin 500 mg tablet 1 tab PO BID lorazepam 1 mg tablet PO
[2022-06-15 21:06] VITALS: BP 108/81; BP 145/90; PULSE 102; RESP 20; TEMP 36.2; O2SAT 95; O2SAT 96; BMI 45.3
[2022-06-15 21:49] LABS: COVID-19 Test Negative (Negative)
[2022-06-15 22:00] VITALS: BP 103/55; PULSE 84; RESP 16; TEMP 36.7; O2SAT 99
[2022-06-15 22:32] LABS: Amphetamine Screen Urine Not Detected (Not Detect); Barbiturates, Urine Not Detected (Not Detect); Benzodiazepines Screen Urine Not Detected (Not Detect); Cannabinoid Screen Urine POSITIVE (Not Detect); Cocaine Screen Urine Not Detected (Not Detect); Fentanyl, urine Not Detected (Not Detect); Opiate Screen Urine Not Detected (Not Detect); Phencyclidine Screen Urine Not Detected (Not Detect)
--- NOTE | 2022-06-16 05:31 | PC.NURSE ---
pt is sleeping. plan is for bed search. Will continue to monitor.
--- NOTE | 2022-06-16 07:07 | PC.NURSE ---
Report received from Jazlyn CALLE. Patient is asleep on stretcher. Respirations regular and even with equal chest rise/fall. 1:1 sitter. Will allow to sleep and continue to monitor.
[2022-06-16 08:00] VITALS: RESP 16; O2SAT 95
--- NOTE | 2022-06-16 08:51 | MHC.CARE ---
Call from group social worker, Kim ([phone]) looking for update on patient, housemaid is on vacation so she is the point of contact. They do have two staff at the house today and will accept him back if that is recommended.
[2022-06-16 09:54] VITALS: BP 96/47; PULSE 77; RESP 16; TEMP 36.7; O2SAT 96
--- NOTE | 2022-06-16 10:08 | PC.NURSE ---
Awoke patient for morning medications and breakfast. Patient refusing medications at this time. Patient also refusing breakfast. Patient allowed this RN to check vitals, states thats all I am doing though . Patient reports he is still tired and would like to sleep more. Allowing patient to sleep at this time. Care team at bedside for conversation.
[2022-06-16 13:22] VITALS: BP 117/77; PULSE 86; RESP 16; O2SAT 96
--- NOTE | 2022-06-16 13:32 | PC.NURSE ---
Patient sitting upright eating lunch independently at this time. Respirations regular and even. Skin PWD. Reports comfort. Willing to go home at this time. Ambulance has been scheduled to transfer back to senior living. Cleared by randy.
== END 2022-06-16 14:38 | disposition home or self-care (01) ==
PROVIDERS: Emergency Provider Emergency Medicine
DX: R45.851 Suicidal ideations (principal); F32.A Depression, unspecified; F41.9 Anxiety disorder, unspecified; Z20.822 Contact with and (suspected) exposure to COVID-19; F63.81 Intermittent explosive disorder; F72 Severe intellectual disabilities; Q98 Other sex chromosome abnormalities, male phenotype, not elsewhere classified; F89 Unspecified disorder of psychological development; F17.210 Nicotine dependence, cigarettes, uncomplicated; F14.10 Cocaine abuse, uncomplicated; F12.90 Cannabis use, unspecified, uncomplicated; Z79.84 Long term (current) use of oral hypoglycemic drugs; Z79.899 Other long term (current) drug therapy
CPT/HCPCS: 80307; 87635; 99284; 99285

== ENCOUNTER 2022-06-29 17:39 | Emergency (ER) | payer MEDICAID, SELFPAY ==
--- NOTE | ~2022-06-29 | XR_ITS ---
EXAMINATION: XR CHEST CLINICAL INFORMATION: Chest wall pain COMPARISON: Chest x-ray 06/05/2022 TECHNIQUE: Frontal portable view of the chest was obtained. 6:33 PM FINDINGS: No significant abnormality is noted involving the heart, lungs, mediastinum, bony thorax or soft tissues. XR/XR chest 1V IMPRESSION: Unremarkable examination.
--- NOTE | 2022-06-29 17:48 | ECG_ITS ---
Test Reason : CHEST PAIN Blood Pressure : / mmHG Vent. Rate : 094 BPM Atrial Rate : 094 BPM P-R Int : 150 ms QRS Dur : 080 ms QT Int : 336 ms P-R-T Axes : 038 016 028 degrees QTc Int : 420 ms Normal sinus rhythm Normal ECG When compared with ECG of 13-JUN-2022 17:46, No significant change was found Referred By: Generic ED Physician Electronically Signed By:LUIS SORTO MD
[2022-06-29 17:52] VITALS: BP 126/68; BP 156/80; PULSE 102; PULSE 94; RESP 16; TEMP 36.8; O2SAT 94; O2SAT 96; BMI 42.7
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
--- NOTE | 2022-06-29 22:53 | PC.NURSE ---
This RN spoke with category consultant [facility] accounting representative who recommended pt be sent back to [facility] if he felt comfortable and able to contract for safety. Pt given cell number to category consultant contact to report any issues at the [facility] if they were to arise. Plan to discharge pt to [facility] with staff member present at our facility.
== END 2022-06-29 22:59 | disposition home or self-care (01) ==
PROVIDERS: Emergency Provider Internal Medicine; PCP Nurse Practitioner Family
DX: R07.9 Chest pain, unspecified (principal); F17.210 Nicotine dependence, cigarettes, uncomplicated; F72 Severe intellectual disabilities
CPT/HCPCS: 71045; 93005; 99283; 99284

== ENCOUNTER 2022-07-04 14:44 | Emergency (ER) | payer MEDICAID, SELFPAY ==
--- NOTE | ~2022-07-04 | XR_ITS ---
EXAMINATION: XR LUMBOSACRAL SPINE CLINICAL INFORMATION: Fall pain COMPARISON: None TECHNIQUE: Three views of the lumbosacral spine. FINDINGS: The vertebral bodies and posterior elements are normal. The disc spaces are preserved and the vertebral alignment is normal. The paraspinal soft tissues are normal. XR/XR lumbar spine 2-3V IMPRESSION: No fracture.
[2022-07-04 14:58] VITALS: BP 135/78; PULSE 92; O2SAT 97; BMI 94.3
--- NOTE | 2022-07-04 15:01 | ED.FALL ---
HPI - Fall General Chief Complaint: Fall Stated Complaint: lower back pain Time Seen by Provider: 07/04/22 15:00 Source: patient and EMS Mode of arrival: EMS Limitations: no limitations History of Present Illness HPI Narrative: 21-year-old male coming from a long-term with a past medical history of XXYY syndrome, seizure disorder, developmental disability? here with reports of lower back pain after a trip and fall which occurred earlier today with the patient landed on his buttocks. He denies any hitting of head or loss of consciousness. He reports pain low back which intermittently radiates down his left leg. No associated numbness or tingling, no bowel or bladder incontinence. No numbness in the groin. No fevers or chills. Patient is ambulatory Related Data Home Medications Medication Instructions Recorded Confirmed acetaminophen 325 mg tablet 650 mg PO Q6H PRN Pain (Scale 05/29/22 06/15/22 Score 1-3) chlorhexidine gluconate 0.12 % 15 ml buccal BEDTIME 05/29/22 05/29/22 mouthwash (Peridex) chlorpromazine 100 mg tablet 100 mg PO BID PRN PRN 05/29/22 06/15/22 chlorpromazine 25 mg tablet 50 mg PO TID 05/29/22 06/15/22 divalproex 500 mg tablet,delayed 1,000 mg PO BID 05/29/22 06/15/22 release docusate sodium 100 mg capsule 1 cap PO BID 05/29/22 06/15/22 guanfacine 4 mg tablet,extended 4 mg PO BEDTIME 05/29/22 06/15/22 release 24 hr ibuprofen 800 mg tablet 800 mg PO BID PRN Pain 05/29/22 06/15/22 melatonin 3 mg tablet 3 mg PO BEDTIME 05/29/22 06/15/22 polyethylene glycol 3350 17 gram 17 g PO BID 05/29/22 05/29/22 oral powder packet (Miralax) propranolol 160 mg capsule,24 160 mg PO DAILY 05/29/22 06/15/22 hr,extended release quetiapine 400 mg tablet 2 tab PO BEDTIME 05/29/22 06/15/22 sennosides 8.6 mg tablet (senna) 8.6 mg PO BEDTIME 05/29/22 05/29/22 sildenafil 50 mg tablet 50 mg PO DAILY PRN Sexual Activity 05/29/22 05/29/22 lorazepam 1 mg tablet tab PO 06/15/22 metformin 500 mg tablet 1 tab PO BID 06/15/22 06/15/22 Previous Rx's Medication Instructions Recorded ibuprofen 600 mg tablet 600 mg PO Q8H PRN pain #30 tabs 07/04/22 Allergies Allergy/AdvReac Type Severity Reaction Status Date / Time methylphenidate Allergy Unknown UNKNOWN Verified 05/13/22 10:50 [From RITALIN] shrimp [SHRIMP] Allergy Unknown HIVES Verified 05/13/22 10:50 haloperidol [From Haldol] Allergy Involuntary Verified 05/13/22 10:50 Spasms Review of Systems Review of Systems: Yes all other systems are reviewed and are negative Constitutional: Constitutional: Reports no additional constitutional complaints, Denies body ache(s), Denies chills, Denies fever(s), Denies headache(s) and Denies weakness Eyes: Eyes: Reports no additional eye complaints and Denies change in vision ENT: Reports system reviewed and no additional complaints, except as documented, Denies dizziness, Denies headache(s), Denies nasal congestion, Denies nasal discharge and Denies neck pain Cardiovascular: Cardiovascular: Reports no additional cardiovascular complaints, Denies chest pain, Denies leg edema and Denies dyspnea Respiratory: Respiratory: Reports no additional respiratory complaints, Denies cough and Denies dyspnea Gastrointestinal: Gastrointestinal: Reports no additional gastrointestinal complaints, Denies abdominal pain, Denies diarrhea, Denies nausea and Denies vomiting Genitourinary: Genitourinary: Denies urinary incontinence Musculoskeletal: Musculoskeletal: Reports no additional musculoskeletal complaints, Reports back pain, Denies arthralgias, Denies joint swelling, Denies neck pain, Denies numbness and Denies tingling Integumentary/Breasts: Skin/Breast: Reports system reviewed and no additional complaints, except as docu and Denies rash Neurologic: Reports system reviewed and no additional complaints, except as documented, Denies Abnormal speech present, Denies dizziness, Denies headache(s), Denies numbness, Denies tingling and Denies weakness PMFSH Past Medical History Attestation statement: The following information was validated with the patient. Source: old records reviewed and nursing notes reviewed Medical History Adjustment disorder Chronic abdominal pain Developmental disability Dyspnea Seborrheic dermatitis Seizures XXYY syndrome Surgical History History of testicular surgery Family History Family History Father No problems noted. Mother Hypertension Diabetes Other History of brain cancer Social History Social History Housing: Assisted Living Facility Alcohol intake: never Patient Tobacco Use Status: Current everyday Tobacco user Tobacco use type: Cigarette Years Smoked: 16 years old e-Cigarette/Vaping Use: Currently Using Substance Use Type: Crack/Cocaine and Marijuana Advance Directives: No Advance Directives Information Provided: No service: No Current occupational status: disabled Cognitive needs: Yes Hearing needs: No Vision needs: No Physical Exam Vital Signs: Vital Signs: Last Vital Signs Temp 98.5 F 07/04/22 15:07 Pulse 91 07/04/22 15:07 Resp 18 07/04/22 15:07 BP 110/71 07/04/22 15:07 Pulse Ox 95 07/04/22 15:07 O2 Del Method 07/04/22 15:07 BMI result Body Mass Index 94.3 Const: General: cooperative, healthy appearing, comfortable and no acute distress Orientation/consciousness: patient oriented x3 Limitations: no limitations HEENT: Head: Yes normal to inspection Ears: hearing grossly normal bilaterally General nose exam: Normal external nose present Face and sinus: Yes normal facial exam Mouth: Normal oral and palatal mucosa present Throat: Yes posterior oropharynx normal Eyes: General: appearance normal, both eyes and all related structures Pupils: Equal, round and reactive pupils present Neck: Neck: Yes normal visual inspection Chest: Chest palpation & inspection: normal inspection of the chest Resp: Effort & Inspection: normal respiratory effort Auscultation: clear to auscultation bilaterally Cardio: Rate: regular rate Rhythm: regular rhythm Peripheral pulses: Peripheral pulses 2+ throughout GI: Inspection: Yes normal to inspection Palpation (GI): Soft to palpation and nontender Auscultation: normal bowel sounds : General: Yes no CVA tenderness Back/Spine/Pelvis: Other: there is some lumbar midline tenderness with no step-offs or deformities. Back: no CVA tenderness Thoracic/Lumbar Spine: thoracic and lumbar spine normal to inspection Skin: General skin exam: no rashes or lesions noted Neuro: General: patient oriented x3, no focal motor deficits and normal sensation to monofilament Cranial nerves: Yes CN's II-XII intact bilaterally, Yes Equal, round and reactive pupils present, Yes Bilaterally intact EOM present, Yes Nystagmus not present, Yes Normal facial strength present and Yes Midline tongue present Cognition (Neuro): normal cognition Speech: No Abnormal speech present Gait exam (Neuro): Normal gait present Motor exam (neuro): 5/5 motor strength present throughout Sensory Exam: Normal double simultaneous stimulation for sensation Extrem: General: Yes normal to inspection, Yes no pedal edema and Yes no calf tenderness Course Course Course Narrative: X-ray showed no acute fracture. Likely contusion. Patient will be discharged back to the long-term. Nursing tried to call long-term but unsuccessful. Patient needs staff to pick him up. MDM - Fall MDM Narrative Medical decision making narrative: Mechanical fall here with low back pain. no neurological deficits or red flag symptoms. No midline step-offs or deformities. Does have some tenderness over the mid spine. Due to fall will check imaging. Medical Records Attestation: I reviewed the patient's medical records. Lab Data Attestation: I reviewed the patient's lab results. Discharge Plan Discharge Clinical Impression: Lumbar contusion Patient Disposition: Xfer Other Transfer Details: long-term Instructions: Acute Low Back Pain (ED), Contusion in Adults (ED) Additional Instructions: heat or ice gentle stretching as needed Prescriptions: New ibuprofen 600 mg tablet 600 mg PO Q8H PRN (Reason: pain) Qty: 30 0RF No Action docusate sodium 100 mg capsule 1 cap PO BID quetiapine 400 mg tablet 2 tab PO BEDTIME acetaminophen 325 mg Tablet 650 mg PO Q6H PRN (Reason: Pain (Scale Score 1-3)) sennosides [senna] 8.6 mg Tablet 8.6 mg PO BEDTIME propranolol 160 mg Capsule,Extended Release 24 Hr 160 mg PO DAILY polyethylene glycol 3350 [Miralax] 17 gram Powder In Packet 17 g PO BID sildenafil 50 mg Tablet 50 mg PO DAILY PRN (Reason: Sexual Activity) Rx Instructions: administer 30 minutes to 4 hours before activity ibuprofen 800 mg Tablet 800 mg PO BID PRN (Reason: Pain) chlorpromazine 100 mg Tablet 100 mg PO BID PRN (Reason: PRN) melatonin 3 mg Tablet 3 mg PO BEDTIME divalproex 500 mg Tablet,Delayed Release (Dr/Ec) 1,000 mg PO BID chlorpromazine 25 mg Tablet 50 mg PO TID chlorhexidine gluconate [Peridex] 0.12 % Mouthwash 15 ml BUCCAL BEDTIME guanfacine 4 mg Tablet Extended Release 24 Hr 4 mg PO BEDTIME metformin 500 mg tablet 1 tab PO BID lorazepam 1 mg tablet PO Referrals: Drew Schulz, [facility] [Primary Care Provider] - 1 week (as needed)
[2022-07-04 15:07] VITALS: BP 110/71; PULSE 91; RESP 18; TEMP 36.9; O2SAT 95
[2022-07-04] MEDS: Ketorolac Tromethamine 60 MG/2 ML VIAL IM (15:07)
--- NOTE | 2022-07-04 16:35 | PC.NURSE ---
[phone] STAFF FROM [facility]
--- NOTE | 2022-07-04 17:16 | PC.NURSE ---
MULTIPLE CALLS PLACED TO [facility]ENICA STAFF MEMEBER AT [facility] WITHOUT RESPONSE. CALL PLACED TO [employer] JUAN JOSE WHO INFORMED T/W SHE WILL GET A STAFF HERE [facility] TO TAKE PT HOME
== END 2022-07-04 18:27 | disposition home or self-care (01) ==
PROVIDERS: Emergency Provider Emergency Medicine; PCP Nurse Practitioner Family
DX: S30.0XXA Contusion of lower back and pelvis, initial encounter (principal); W01.0XXA Fall on same level from slipping, tripping and stumbling without subsequent striking against object, initial encounter; Y93.9 Activity, unspecified; Y92.9 Unspecified place or not applicable; Y99.9 Unspecified external cause status; Z79.899 Other long term (current) drug therapy
CPT/HCPCS: 72100; 96372; 99284; J1885

== ENCOUNTER 2022-07-04 22:39 | Emergency (ER) | payer MEDICAID, SELFPAY ==
[2022-07-04 22:43] VITALS: BP 140/70; PULSE 108; O2SAT 100
[2022-07-04 23:14] VITALS: BP 123/57; PULSE 114; RESP 18; TEMP 36.9; O2SAT 95; BMI 45.1
--- NOTE | 2022-07-04 23:25 | ED.GENADULT ---
HPI - General Adult General Chief complaint: General Medical Stated complaint: angry Time Seen by Provider: 07/04/22 23:25 Source: patient and EMS Mode of arrival: EMS Limitations: no limitations History of Present Illness HPI narrative: 21-year-old male past medical history of XXY syndrome, developmental disability,?brought in by ambulance from his longterm with complaints of feeling overwhelmed. Patient tells me he got into an argument from staff at the longterm and he wanted to come into the hospital. He tells me that he had them call 911. He tells me that they were not verbally or physically abusive towards him that they just pissed me off . He tells me that he is feeling better at this time from just being out of the longterm. Denies visual, auditory and tactile hallucinations. Denies suicidal and homicidal ideation. Denies drugs, alcohol and tobacco. Denies any medical complaints at this time. Onset (ago): hour(s) (2) Related Data Home Medications Medication Instructions Recorded Confirmed acetaminophen 325 mg tablet 650 mg PO Q6H PRN Pain (Scale 05/29/22 06/15/22 Score 1-3) chlorhexidine gluconate 0.12 % 15 ml buccal BEDTIME 05/29/22 05/29/22 mouthwash (Peridex) chlorpromazine 100 mg tablet 100 mg PO BID PRN PRN 05/29/22 06/15/22 chlorpromazine 25 mg tablet 50 mg PO TID 05/29/22 06/15/22 divalproex 500 mg tablet,delayed 1,000 mg PO BID 05/29/22 06/15/22 release docusate sodium 100 mg capsule 1 cap PO BID 05/29/22 06/15/22 guanfacine 4 mg tablet,extended 4 mg PO BEDTIME 05/29/22 06/15/22 release 24 hr ibuprofen 800 mg tablet 800 mg PO BID PRN Pain 05/29/22 06/15/22 melatonin 3 mg tablet 3 mg PO BEDTIME 05/29/22 06/15/22 polyethylene glycol 3350 17 gram 17 g PO BID 05/29/22 05/29/22 oral powder packet (Miralax) propranolol 160 mg capsule,24 160 mg PO DAILY 05/29/22 06/15/22 hr,extended release quetiapine 400 mg tablet 2 tab PO BEDTIME 05/29/22 06/15/22 sennosides 8.6 mg tablet (senna) 8.6 mg PO BEDTIME 05/29/22 05/29/22 sildenafil 50 mg tablet 50 mg PO DAILY PRN Sexual Activity 05/29/22 05/29/22 lorazepam 1 mg tablet tab PO 06/15/22 metformin 500 mg tablet 1 tab PO BID 06/15/22 06/15/22 Previous Rx's Medication Instructions Recorded ibuprofen 600 mg tablet 600 mg PO Q8H PRN pain #30 tabs 07/04/22 Allergies Allergy/AdvReac Type Severity Reaction Status Date / Time methylphenidate Allergy Unknown UNKNOWN Verified 05/13/22 10:50 [From RITALIN] shrimp [SHRIMP] Allergy Unknown HIVES Verified 05/13/22 10:50 haloperidol [From Haldol] Allergy Involuntary Verified 05/13/22 10:50 Spasms Review of Systems Review of Systems: Constitutional : No Weight loss, No Fever, No Chills, No Fatigue, No Malaise ENT/Mouth : No sore throat, No Rhinorrhea Eyes: No Eye Pain, No Swelling, No Redness Cardiovascular : No Chest Pain, No SOB, No Dyspnea on Exertion, No Orthopnea, No Edema, No Palpitations Respiratory : No Cough, No Sputum, No Wheezing Gastrointestinal : No Nausea, No Vomiting, No Diarrhea, No Constipation, No abdominal Pain, No Hematochezia, No Melena Genitourinary : No Dysuria, No Urinary Frequency, No Hematuria, Musculoskeletal : No joint pain, No Myalgias, No Joint Swelling Skin : No Skin Lesions, No rash Neuro : No Weakness, No Numbness, No Dizziness, No Headache Psych : No Anxiety/Panic, No Depression All other systems reviewed and are negative Yes all other systems are reviewed and are negative [facility] Past Medical History Attestation statement: The following information was validated with the patient. Source: old records reviewed and nursing notes reviewed Medical History Adjustment disorder Chronic abdominal pain Developmental disability Dyspnea Seborrheic dermatitis Seizures XXYY syndrome Surgical History History of testicular surgery Family History Family History Father No problems noted. Mother Hypertension Diabetes Other History of brain cancer Social History Social History Housing: Assisted Living Facility Alcohol intake: never Patient Tobacco Use Status: Current everyday Tobacco user Tobacco use type: Cigarette Years Smoked: 16 years old e-Cigarette/Vaping Use: Currently Using Substance Use Type: Crack/Cocaine and Marijuana service: No Current occupational status: disabled Cognitive needs: Yes Hearing needs: No Vision needs: No Physical Exam ED Vital Signs: Vital Signs - 24 hr 07/04/22 23:14 Temperature 98.4 F Pulse Rate 114 H Respiratory Rate 18 Blood Pressure 123/57 L Pulse Oximetry 95 Oxygen Delivery Method Room Air BMI result Body Mass Index 45.1 vss Appearance: Alert.? Oriented X3.? No acute distress.? Head: Normocephalic, atraumatic, no step-offs or deformities Eyes: Pupils equal, round and reactive to light.? ENT: Pharynx normal.? Neck: Normal inspection.? Neck supple.? CVS: Normal heart rate and rhythm.? Pulses normal.? Respiratory: No respiratory distress.? Breath sounds normal.? Abdomen: Soft and nontender.? Skin: Skin warm and dry.? Normal skin color.? Normal skin turgor.? Extremities: No lower extremity edema.? No calf ttp. 5/5 strength to bilateral upper and lower extremities Neuro: Oriented X 3.? No motor deficit.? No sensory deficit. CN 2-12 intact Course Reevaluation(s) Reevaluation #1: Staff member from longterm is here. Patient is refusing labs, COVID, urine. He tells me he is feeling much better and does not want a stay. Krystina from the care team also spoke to patient, patient denying SI and HI. Telling us he feels much better and would like to return to the longterm. Patient is, cooperative. At this time I feel comfortable discharge home. Advised to return with any new or worsening symptoms. Time: 23:29 Medical Decision Making MDM Narrative Medical decision making narrative: 2229 21-year-old male presenting from longterm with aggression, now feeling better after removing himself from that environment. Denies SI and HI. Physical examination benign. Plan at this time is medical clearance and evaluation by the care team. Medical Records Medical records reviewed: Yes I reviewed the patient's medical records. Lab Data Lab results reviewed: Yes I reviewed the patient's lab results. Critical Care Time Critical Care Time Critical Care Time: No Discharge Plan Discharge Clinical Impression: Aggression Patient Disposition: Home, Self-Care Additional Instructions: Take your medications as prescribed. If you were prescribed antibiotics today, it is important that you take your medication to their entirety, do not skip any doses, do not finish them early. Follow-up with your primary care provider this week. Return to the emergency department with new or worsening symptoms. Such as fevers, chills, chest pain, shortness of breath, nausea, vomiting, dizziness, headache, vision changes, lethargy In case of emergency call 911 Prescriptions: No Action ibuprofen 600 mg tablet 600 mg PO Q8H PRN (Reason: pain) Qty: 30 0RF docusate sodium 100 mg capsule 1 cap PO BID quetiapine 400 mg tablet 2 tab PO BEDTIME acetaminophen 325 mg Tablet 650 mg PO Q6H PRN (Reason: Pain (Scale Score 1-3)) sennosides [senna] 8.6 mg Tablet 8.6 mg PO BEDTIME propranolol 160 mg Capsule,Extended Release 24 Hr 160 mg PO DAILY polyethylene glycol 3350 [Miralax] 17 gram Powder In Packet 17 g PO BID sildenafil 50 mg Tablet 50 mg PO DAILY PRN (Reason: Sexual Activity) Rx Instructions: administer 30 minutes to 4 hours before activity ibuprofen 800 mg Tablet 800 mg PO BID PRN (Reason: Pain) chlorpromazine 100 mg Tablet 100 mg PO BID PRN (Reason: PRN) melatonin 3 mg Tablet 3 mg PO BEDTIME divalproex 500 mg Tablet,Delayed Release (Dr/Ec) 1,000 mg PO BID chlorpromazine 25 mg Tablet 50 mg PO TID chlorhexidine gluconate [Peridex] 0.12 % Mouthwash 15 ml BUCCAL BEDTIME guanfacine 4 mg Tablet Extended Release 24 Hr 4 mg PO BEDTIME metformin 500 mg tablet 1 tab PO BID lorazepam 1 mg tablet PO Referrals: [facility] [Provider Group] - 1 day Stand Alone Forms: Work/School Release
--- NOTE | 2022-07-04 23:29 | PC.NURSE ---
Pt refusing to provide urine, labs, or covid swab. Pt is requesting to leave our facility at this time. Upset that he has to sit in the hallway. Pt has made multiple requests to be moved to the pod.
--- NOTE | 2022-07-04 23:31 | MHC.CARE ---
CARE team met with pt on arrival to the ED to discuss what had happened this evening. The pt reported that he became angry with the staff working at [facility] this evening and didn't want to be there with them so he wanted to come to the hospital. He reported that this is his second visit to the hospital today, the first being after a fall, but reported that he is feeling okay. He denied SI/HI/AVH and was in behavioral control. He does not wish to stay in the ED overnight. No further assessment is needed at this time, as there is no risk reported or observed. ED provider updated re: recommendation.
== END 2022-07-05 05:12 | disposition home or self-care (01) ==
PROVIDERS: Emergency Provider Student in an Organized Health Care Education/Training Program
DX: F43.0 Acute stress reaction (principal); R45.6 Violent behavior; R62.50 Unspecified lack of expected normal physiological development in childhood; F17.210 Nicotine dependence, cigarettes, uncomplicated; F14.90 Cocaine use, unspecified, uncomplicated; F12.90 Cannabis use, unspecified, uncomplicated; Z71.6 Tobacco abuse counseling; Z79.899 Other long term (current) drug therapy
CPT/HCPCS: 99282

== ENCOUNTER 2022-07-11 16:49 | Emergency (ER) | payer MEDICAID, SELFPAY ==
[2022-07-11 17:00] VITALS: BP 136/72; PULSE 97; O2SAT 95; BMI 45.0
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
[2022-07-11] MEDS: LORazepam 1 MG TABLET 2 MG PO (17:45)
[2022-07-11] MEDS: QUEtiapine Fumarate 100 MG TABLET PO (17:48)
[2022-07-11 19:36] VITALS: BP 118/74; PULSE 82; RESP 16; TEMP 36.6; O2SAT 97
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
[2022-07-11 19:58] LABS: Basophils Percent Auto 0.3 % (0-2); Eosinophils Absolute Auto 0.6 X10*3/uL (0.0-0.4); Eosinophils Percent Auto 6.5 % (0-4); Hematocrit 44.5 % (42.0-52.0); Hemoglobin 14.4 g/dl (14.0-18.0); Imm Gran Abs Auto 0.03 X10*3/uL (0.00-0.03); Imm Gran Pct Auto 0.3 % (0.0-0.4); Lymphocytes Absolute Auto 3.6 X10*3/uL (1.2-4.9); Lymphocytes Percent Auto 39.5 % (20-40); MANUAL DIFF FLAG NO; Mean Corpuscular HGB Conc 32.4 g/dl (31.0-36.0); Mean Corpuscular Hemoglobin 29.5 pg (27.0-33.0); Mean Corpuscular Volume 91.2 fL (80.0-98.0); Monocytes Absolute Auto 0.8 X10*3/uL (0.1-1.2); Monocytes Percent Auto 8.6 % (2-11); Neutrophils Percent Auto 44.8 % (45-73); Platelet Count 233 X10*3/uL (160-400); Red Blood Count 4.88 X10*6/uL (4.60-5.80); Red Cell Distribution Width 13.7 % (11.0-16.0)
[2022-07-11 20:03] LABS: Appearance Urine CLEAR; Color Urine YELLOW; Glucose Urine UA NEG (NEG); Leukocyte Esterase Urine NEG (NEG); Nitrite Urine NEG (NEG); Specific Gravity - Urine >= 1.030 (1.005-1.025); Urine Blood NEG (NEG); Urine Ketones NEG (NEG); Urine Protein TRACE MG/DL (NEG-TRACE)
[2022-07-11 20:27] LABS: Amphetamine Screen Urine Not Detected (Not Detect); Barbiturates, Urine Not Detected (Not Detect); Benzodiazepines Screen Urine POSITIVE (Not Detect); Cannabinoid Screen Urine POSITIVE (Not Detect); Cocaine Screen Urine Not Detected (Not Detect); Fentanyl, urine Not Detected (Not Detect); Opiate Screen Urine Not Detected (Not Detect); Phencyclidine Screen Urine Not Detected (Not Detect)
[2022-07-11 20:29] LABS: Alanine Aminotransferase 57 U/L (0-40); Albumin Level 4.2 g/dL (3.5-5.0); Alkaline Phosphatase 112 U/L (39-117); Anion Gap 16 (12-20); Aspartate Amino Transferase 59 U/L (5-37); Bilirubin Total 0.5 mg/dL (0.0-1.0); Blood Urea Nitrogen 14 mg/dL (9-16); Calcium 9.6 mg/dL (8.4-10.2); Carbon Dioxide 25 mmol/L (22-29); Chloride 104 mmol/L (96-108); Creatinine Clr Calc Pharmacy 196.9; Estimated Glomerular Filt Rate > 60; Ethanol < 10 mg/dL; Glucose Random 126 mg/dL (60-115); Sodium 141 mmol/L (135-145); Total Protein 8.3 g/dL (6.5-8.0)
[2022-07-11 22:00] VITALS: BP 116/69; PULSE 78; RESP 16; TEMP 36.4; O2SAT 98
[2022-07-12] MEDS: Haloperidol Lactate 5 MG/ML VIAL IM
[2022-07-12] MEDS: diphenhydrAMINE HCL 50 MG/ML VIAL IM
[2022-07-12] MEDS: Bacitracin Oint 0.9 GM PACKET 1 APPL TOPICAL (01:28)
[2022-07-12] MEDS: LORazepam 1 MG TABLET 2 MG PO (01:28)
[2022-07-12] MEDS: diphenhydrAMINE HCL 25 MG TABLET 50 MG PO (01:36)
[2022-07-12] MEDS: HaloperidoL 5 MG TABLET PO (01:36)
[2022-07-12] MEDS: chlorproMAZINE HCl 100 MG TABLET PO (03:20)
--- NOTE | 2022-07-12 08:26 | PHA.MEDREC ---
Pharmacy Consult ? Medication Reconciliation Pharmacy has completed the medication reconciliation. Reviewed medication with Raquel from [facility]
--- NOTE | 2022-07-12 08:29 | PC.NURSE ---
pt knockup worker/leader, Matt, here at bedside for update. pt is asleep w rr even/unlabored, 1:1 sitter for safety. knockup worker expreses to this rn that pt was supposed to be taken to [facility] er yesterday, not this er. matt sts that [facility] had him on tuesday and he did so much better there, they had a locked unit for him, they didnt have him out in the hallway like this . matt educated about care team-designed care plan for yue specific to this facility. matt does not agree with care plan, sts pt should be in a locked unit. care team clinician updated about interaction w yue's snf staff. this collateral information as well as contact information for matt given to care team.
== END 2022-07-12 15:06 | disposition still patient (30) ==
PROVIDERS: Physician Assistant; Emergency Provider Emergency Medicine Emergency Medical Services
DX: F33.1 Major depressive disorder, recurrent, moderate (principal); R45.851 Suicidal ideations; F17.210 Nicotine dependence, cigarettes, uncomplicated; F14.10 Cocaine abuse, uncomplicated; F12.10 Cannabis abuse, uncomplicated; Z71.6 Tobacco abuse counseling; Z79.899 Other long term (current) drug therapy
CPT/HCPCS: 36415; 80053; 80307; 81003; 82077; 85025; 96372; 99285; J1200; Q0163

== ENCOUNTER 2022-08-11 15:30 | Emergency (ER) | payer MEDICAID, SELFPAY ==
--- NOTE | ~2022-08-11 | CT_ITS ---
EXAMINATION: CT HEAD WITHOUT CONTRAST CLINICAL INFORMATION: Headache, dizziness COMPARISON: CT head 05/28/2022 TECHNIQUE: Contiguous axial imaging was performed from the skull base to vertex without intravenous administration of contrast. This CT examination was performed using dose optimization techniques as appropriate, variously including the following: *Automated exposure control *Adjustment of mA and/or kV according to patient size (this includes techniques or standardized protocols for targeted exams where dose is matched to indication/reason for exam; i.e. extremities or head) *Use of iterative reconstruction technique DLP: 963 mGy-cm FINDINGS: Head: There is no evidence of acute intracranial hemorrhage or edematous territorial infarction. No abnormal mass effect or midline shift is seen. Katz to white matter differentiation is well preserved. No extra-axial fluid collections are identified. No hydrocephalus. There is no abnormal attenuation within the brain parenchyma. Small hematoma in the scalp of the right frontal region, unchanged from previous. No acute calvarial fracture. The mastoid air cells and visualized portions of the paranasal sinuses are well-aerated. CT/CT head/brain wo IV con IMPRESSION: No CT evidence of acute intracranial bleed or edematous acute territorial infarction.
--- NOTE | ~2022-08-11 | XR_ITS ---
EXAMINATION: XR CHEST CLINICAL INFORMATION: Shortness of breath. COMPARISON: 06/29/2022 chest radiograph. TECHNIQUE: Frontal view of the chest was obtained. FINDINGS: No significant abnormality is noted involving the heart, lungs, mediastinum, bony thorax or soft tissues. XR/XR chest 1V IMPRESSION: No acute cardiopulmonary process.
--- NOTE | 2022-08-11 16:00 | ED_ITS ---
HPI - Psych General Chief Complaint: General Medical Stated Complaint: BEHAVIORAL EPISODE FROM LONG TERM Time Seen by Provider: 08/11/22 16:00 Source: patient and EMS Mode of arrival: EMS Limitations: other (limited historian/poor historian) History of Present Illness HPI Narrative: 21-year-old male past medical history of XXY syndrome, developmental disability, [facility] with complaints of lightheadedness, headache, shortness of breath x1 day. Patient tells me had an appointment with his PCP and he told them he was feeling this way so they advised him to come to the hospital to be evaluated. Patient tells me he was outside for a majority of today. He tells me he feels a diffuse headache, feels like his typical. The headache is gradually worsening. Reports intermittent shortness of breath. Patient vague historian and only providing minimal history. Patient appears calm, no acute distress. Denies chest pain, nausea, vomiting, fevers, chills. Patient denies head truama Related Data Home Medications Medication Instructions Recorded Confirmed acetaminophen 325 mg tablet 650 mg PO Q6H PRN Pain (Scale 05/29/22 07/12/22 Score 1-3) chlorpromazine 100 mg tablet 100 mg PO BID PRN 05/29/22 07/12/22 ANGER/IRRITABILITY chlorpromazine 25 mg tablet 50 mg PO TID 05/29/22 07/12/22 divalproex 500 mg tablet,delayed 1,000 mg PO BID 05/29/22 07/12/22 release docusate sodium 100 mg capsule 1 cap PO BID 05/29/22 07/12/22 guanfacine 4 mg tablet,extended 4 mg PO BEDTIME 05/29/22 07/12/22 release 24 hr melatonin 3 mg tablet 3 mg PO BEDTIME 05/29/22 07/12/22 polyethylene glycol 3350 17 gram 17 g PO BID 05/29/22 07/12/22 oral powder packet (Miralax) propranolol 160 mg capsule,24 160 mg PO DAILY 05/29/22 07/12/22 hr,extended release quetiapine 400 mg tablet 2 tab PO BEDTIME 05/29/22 07/12/22 sildenafil 50 mg tablet 50 mg PO DAILY PRN Sexual Activity 05/29/22 07/12/22 lorazepam 1 mg tablet 2 tab PO Q8H PRN Anxiety 06/15/22 07/12/22 Previous Rx's Medication Instructions Recorded ibuprofen 600 mg tablet 600 mg PO Q8H PRN pain #30 tabs 07/04/22 sennosides 8.6 mg tablet (senna) 8.6 mg PO BEDTIME 30 days #30 tabs 08/10/22 Allergies Allergy/AdvReac Type Severity Reaction Status Date / Time methylphenidate Allergy Unknown UNKNOWN Verified 08/11/22 14:43 [From RITALIN] shrimp [SHRIMP] Allergy Unknown HIVES Verified 08/11/22 14:43 haloperidol [From Haldol] Allergy Involuntary Verified 08/11/22 14:43 Spasms Review of Systems Review of Systems: Constitutional : No Weight loss, No Fever, No Chills, No Fatigue, No Malaise ENT/Mouth : No sore throat, No Rhinorrhea Eyes: No Eye Pain, No Swelling, No Redness Cardiovascular : No Chest Pain, No SOB, No Dyspnea on Exertion, No Orthopnea, No Edema, No Palpitations Respiratory : No Cough, No Sputum, No Wheezing Gastrointestinal : No Nausea, No Vomiting, No Diarrhea, No Constipation, No abdominal Pain, No Hematochezia, No Melena Genitourinary : No Dysuria, No Urinary Frequency, No Hematuria, Musculoskeletal : No joint pain, No Myalgias, No Joint Swelling Skin : No Skin Lesions, No rash Neuro : No Weakness, No Numbness, + Dizziness, + Headache Psych : No Anxiety/Panic, No Depression All other systems reviewed and are negative Yes all other systems are reviewed and are negative [facility] Past Medical History Attestation statement: The following information was validated with the patient. Source: old records reviewed and nursing notes reviewed Medical History Adjustment disorder Chronic abdominal pain Developmental disability Dyspnea Seborrheic dermatitis Seizures XXYY syndrome Surgical History History of testicular surgery Family History Family History Father No problems noted. Mother Hypertension Diabetes Other History of brain cancer Social History Social History Housing: Assisted Living Facility Alcohol intake: never Patient Tobacco Use Status: Former Tobacco user Quit Date: 1 week ago Tobacco use type: Cigarette Years Smoked: 16 years old e-Cigarette/Vaping Use: Currently Using Second Hand Smoke Exposure: Yes Substance Use Type: Crack/Cocaine and Marijuana Advance Directives: No Advance Directives Information Provided: No service: No Current occupational status: disabled Cognitive needs: Yes Hearing needs: No Vision needs: No Physical Exam Vital Signs: Vital Signs: BMI result Body Mass Index 46.0 vss Appearance: Alert.? Oriented X3.? No acute distress.? Head: Normocephalic, atraumatic, no step-offs or deformities Eyes: Pupils equal, round and reactive to light.? ENT: Pharynx normal.? Neck: Normal inspection.? Neck supple.? CVS: Normal heart rate and rhythm.? Pulses normal.? Respiratory: No respiratory distress.? Breath sounds normal.? Abdomen: Soft and nontender.? Skin: Skin warm and dry.? Normal skin color.? Normal skin turgor.? Extremities: No lower extremity edema.? No calf ttp. 5/5 strength to bilateral upper and lower extremities Neuro: Oriented X 3.? No motor deficit.? No sensory deficit. CN 2-12 intact . Normal dbkamw-ce-ipvi, vstp-by-ivli. Steady tandem gait w/ normal coordination Course Reevaluation(s) Reevaluation #1: CBC and chemistry at patient's baseline. CPK wnl unlikley rhabdo. Trop negaqtive. EKG pending. COVID negative. Head CT and chest x-ray negative for acute process. Patient will receive IVF and Toradol. Time: 17:25 Reevaluation #2: On reevaluation, patient tells me that he is feeling completely better, back to normal, neuro remains non focal. Tolerating PO intake eating a sandwitch, ice cream and cheese stick. Patient now admits that he had not eaten all day because he did not want to eat and was not in the mood and he reports he was outside all day. He tells me did not drink any fluids while being outside. After IV hydration and p.o. fluids patient feeling much better. Requesting to go home at this time. Patient stable for discharge home at this time. Advised to return with any new or worsening symptoms. Outlined worrisome signs and symptoms on discharge. Comfortable discharge home. Time: 18:34 MDM - Psych MDM Narrative Medical decision making narrative: 1600 21 y/o F with a PMHx of XXY syndrome, developmental disability presenting with lightheadedness and headache. Reports being outdoors all day. PE benign. Plan to obtain basic labs, head CT. Likely dehydration as patient is reporting being outside all day, BUN mildly elevated. Less likely electrolyte derangement or acute intracranial process based on patient's nl exam. [facility] posterior stroke Medical Records Attestation: I reviewed the patient's medical records. Lab Data Attestation: I reviewed the patient's lab results. Result diagrams: 08/11/22 17:23 08/11/22 17:23 Labs: Lab Results 08/11/22 08/11/22 08/11/22 Range/Units 17:23 17:23 17:23 WBC 8.7 (4.8-10.8) X10*3/uL RBC 4.82 (4.60-5.80) X10*6/uL Hgb 14.4 (14.0-18.0) g/dl Hct 43.8 (42.0-52.0) % MCV 90.9 (80.0-98.0) fL MCH 29.9 (27.0-33.0) pg MCHC 32.9 (31.0-36.0) g/dl RDW 13.9 (11.0-16.0) % Plt Count 218 (160-400) X10*3/uL MPV 10.8 (9.4-12.4) fL Immature Gran % (Auto) 0.2 (0.0-0.4) % Neut % (Auto) 41.5 L (45-73) % Lymph % (Auto) 40.9 H (20-40) % Collier % (Auto) 9.1 (2-11) % Eos % (Auto) 7.7 H (0-4) % Baso % (Auto) 0.6 (0-2) % Lymph # (Auto) 3.6 (1.2-4.9) X10*3/uL Collier # (Auto) 0.8 (0.1-1.2) X10*3/uL Eos # (Auto) 0.7 H (0.0-0.4) X10*3/uL Baso # (Auto) 0.1 (0.0-0.2) X10*3/uL Abs Immat Gran (auto) 0.02 (0.00-0.03) X10*3/uL Absolute Neuts (auto) 3.6 (2.0-8.3) x10*3/uL Absolute Nucleated RBC 0.000 (0.0-0.012) X10*3/uL Nucleated RBC % (auto) 0.0 (0.0-0.2) /100WBC Sodium 142 (135-145) mmol/L Potassium 4.2 (3.3-5.1) mmol/L Chloride 104 (96-108) mmol/L Carbon Dioxide 24 (22-29) mmol/L Anion Gap 18 (12-20) BUN 17 H (9-16) mg/dL Creatinine 0.86 (0.5-1.4) mg/dL Estim Creat Clear Calc 234.0 Estimated GFR > 60 Random Glucose 137 H (60-115) mg/dL Calcium 9.7 (8.4-10.2) mg/dL Magnesium 1.7 (1.6-2.6) mg/dL Total Bilirubin 0.3 (0.0-1.0) mg/dL AST 38 H (5-37) U/L ALT 47 H (0-40) U/L Alkaline Phosphatase 111 (39-117) U/L Total Creatine Kinase 72 (38-174) U/L Troponin I High Sens < 3.5 (<3.5-35.0) ng/L Total Protein 7.9 (6.5-8.0) g/dL Albumin 3.8 (3.5-5.0) g/dL COVID-19 (JULISSA) (Negative) COVID-19 Clin Com 08/11/22 Range/Units 17:23 WBC (4.8-10.8) X10*3/uL RBC (4.60-5.80) X10*6/uL Hgb (14.0-18.0) g/dl Hct (42.0-52.0) % MCV (80.0-98.0) fL MCH (27.0-33.0) pg MCHC (31.0-36.0) g/dl RDW (11.0-16.0) % Plt Count (160-400) X10*3/uL MPV (9.4-12.4) fL Immature Gran % (Auto) (0.0-0.4) % Neut % (Auto) (45-73) % Lymph % (Auto) (20-40) % Collier % (Auto) (2-11) % Eos % (Auto) (0-4) % Baso % (Auto) (0-2) % Lymph # (Auto) (1.2-4.9) X10*3/uL Collier # (Auto) (0.1-1.2) X10*3/uL Eos # (Auto) (0.0-0.4) X10*3/uL Baso # (Auto) (0.0-0.2) X10*3/uL Abs Immat Gran (auto) (0.00-0.03) X10*3/uL Absolute Neuts (auto) (2.0-8.3) x10*3/uL Absolute Nucleated RBC (0.0-0.012) X10*3/uL Nucleated RBC % (auto) (0.0-0.2) /100WBC Sodium (135-145) mmol/L Potassium (3.3-5.1) mmol/L Chloride (96-108) mmol/L Carbon Dioxide (22-29) mmol/L Anion Gap (12-20) BUN (9-16) mg/dL Creatinine (0.5-1.4) mg/dL Estim Creat Clear Calc Estimated GFR Random Glucose (60-115) mg/dL Calcium (8.4-10.2) mg/dL Magnesium (1.6-2.6) mg/dL Total Bilirubin (0.0-1.0) mg/dL AST (5-37) U/L ALT (0-40) U/L Alkaline Phosphatase (39-117) U/L Total Creatine Kinase (38-174) U/L Troponin I High Sens (<3.5-35.0) ng/L Total Protein (6.5-8.0) g/dL Albumin (3.5-5.0) g/dL COVID-19 (JULISSA) Negative (Negative) COVID-19 Clin Com See Note ECG Data Attestation: I personally reviewed and interpreted this ECG as follows: ECG interpretation date: 08/11/22 ECG interpretation time: 18:59 Prior ECG tracings: available for review Interpretation: Ventricular rate of 79, CT normal, QRS normal, QT/QTC normal. EKG with normal sinus rhythm, no ST elevations or inversions concerning for ischemia. No significant changes when compared to previous. Critical Care Time Critical Care Time Critical Care Time: No Discharge Plan Discharge Clinical Impression: Light-headedness, Dehydration, Headache Patient Disposition: Home, Self-Care Instructions: Dehydration (ED), Acute Headache (ED), Lightheadedness (ED) Additional Instructions: Take your medications as prescribed. If you were prescribed antibiotics today, it is important that you take your medication to their entirety, do not skip any doses, do not finish them early. Follow-up with your primary care provider this week. Return to the emergency department with new or worsening symptoms. Such as fevers, chills, chest pain, shortness of breath, nausea, vomiting, dizziness, headache, vision changes, lethargy In case of emergency call 911 Please drink plenty of fluids. And eat! Prescriptions: No Action sennosides [senna] 8.6 mg tablet 8.6 mg PO BEDTIME 30 Days Qty: 30 3RF ibuprofen 600 mg tablet 600 mg PO Q8H PRN (Reason: pain) Qty: 30 0RF docusate sodium 100 mg capsule 1 cap PO BID quetiapine 400 mg tablet 2 tab PO BEDTIME acetaminophen 325 mg Tablet 650 mg PO Q6H PRN (Reason: Pain (Scale Score 1-3)) propranolol 160 mg Capsule,Extended Release 24 Hr 160 mg PO DAILY polyethylene glycol 3350 [Miralax] 17 gram Powder In Packet 17 g PO BID sildenafil 50 mg Tablet 50 mg PO DAILY PRN (Reason: Sexual Activity) Rx Instructions: administer 30 minutes to 4 hours before activity chlorpromazine 100 mg Tablet 100 mg PO BID PRN (Reason: ANGER/IRRITABILITY) melatonin 3 mg Tablet 3 mg PO BEDTIME divalproex 500 mg Tablet,Delayed Release (Dr/Ec) 1,000 mg PO BID chlorpromazine 25 mg Tablet 50 mg PO TID guanfacine 4 mg Tablet Extended Release 24 Hr 4 mg PO BEDTIME lorazepam 1 mg tablet 2 tab PO Q8H PRN (Reason: Anxiety) Referrals: Physician,Unknown J [Primary Care Provider] - 2 days Stand Alone Forms: Work/School Release
[2022-08-11 16:20] VITALS: BP 123/71; PULSE 92; O2SAT 96; BMI 46.0
[2022-08-11] MEDS: 0.9 % Sodium Chloride 1,000 ML 999 ML IV (17:20)
[2022-08-11 17:29] LABS: MANUAL DIFF FLAG NO
[2022-08-11 17:48] LABS: Basophils Absolute Auto 0.1 X10*3/uL (0.0-0.2); Basophils Percent Auto 0.6 % (0-2); Eosinophils Absolute Auto 0.7 X10*3/uL (0.0-0.4); Eosinophils Percent Auto 7.7 % (0-4); Hematocrit 43.8 % (42.0-52.0); Hemoglobin 14.4 g/dl (14.0-18.0); Imm Gran Abs Auto 0.02 X10*3/uL (0.00-0.03); Imm Gran Pct Auto 0.2 % (0.0-0.4); Lymphocytes Absolute Auto 3.6 X10*3/uL (1.2-4.9); Lymphocytes Percent Auto 40.9 % (20-40); Mean Corpuscular HGB Conc 32.9 g/dl (31.0-36.0); Mean Corpuscular Hemoglobin 29.9 pg (27.0-33.0); Mean Corpuscular Volume 90.9 fL (80.0-98.0); Mean Platelet Volume 10.8 fL (9.4-12.4); Monocytes Absolute Auto 0.8 X10*3/uL (0.1-1.2); Monocytes Percent Auto 9.1 % (2-11); Neutrophils Absolute Auto 3.6 x10*3/uL (2.0-8.3); Neutrophils Percent Auto 41.5 % (45-73); Platelet Count 218 X10*3/uL (160-400); Red Blood Count 4.82 X10*6/uL (4.60-5.80); Red Cell Distribution Width 13.9 % (11.0-16.0); White Blood Count 8.7 X10*3/uL (4.8-10.8)
[2022-08-11 17:49] LABS: Alanine Aminotransferase 47 U/L (0-40); Albumin Level 3.8 g/dL (3.5-5.0); Alkaline Phosphatase 111 U/L (39-117); Anion Gap 18 (12-20); Aspartate Amino Transferase 38 U/L (5-37); Bilirubin Total 0.3 mg/dL (0.0-1.0); Blood Urea Nitrogen 17 mg/dL (9-16); Calcium 9.7 mg/dL (8.4-10.2); Carbon Dioxide 24 mmol/L (22-29); Chloride 104 mmol/L (96-108); Estimated Glomerular Filt Rate > 60; Glucose Random 137 mg/dL (60-115); Magnesium 1.7 mg/dL (1.6-2.6); Potassium 4.2 mmol/L (3.3-5.1); Sodium 142 mmol/L (135-145); Total Protein 7.9 g/dL (6.5-8.0)
[2022-08-11 17:54] LABS: Troponin-I High Sensitivity < 3.5 ng/L (<3.5-35.0)
[2022-08-11 17:55] LABS: COVID-19 Test Negative (Negative); IDNOW Serial# 16C4AD1C
--- NOTE | 2022-08-11 18:46 | ECG_ITS ---
Test Reason : SYNCOPE Blood Pressure : / mmHG Vent. Rate : 079 BPM Atrial Rate : 079 BPM P-R Int : 156 ms QRS Dur : 088 ms QT Int : 370 ms P-R-T Axes : 048 026 032 degrees QTc Int : 424 ms Normal sinus rhythm Normal ECG When compared with ECG of 29-JUN-2022 18:05, No significant change was found Referred By: Rosa Page Electronically Signed By:JACOBO LAWRENCE
[2022-08-11 19:25] VITALS: BP 129/65; PULSE 84; RESP 18; TEMP 36.3; O2SAT 95
== END 2022-08-11 19:56 | disposition home or self-care (01) ==
PROVIDERS: Physician Assistant; Emergency Provider Emergency Medicine
DX: R55 Syncope and collapse (principal); R42 Dizziness and giddiness; R51.9 Headache, unspecified; E86.0 Dehydration; Z20.822 Contact with and (suspected) exposure to COVID-19; Z79.899 Other long term (current) drug therapy; Z87.891 Personal history of nicotine dependence
CPT/HCPCS: 70450; 71045; 80053; 82550; 83735; 84484; 85025; 87635; 93005; 99284

== ENCOUNTER 2022-08-20 15:57 | Emergency (ER) | payer MEDICAID, SELFPAY ==
--- NOTE | 2022-08-20 16:07 | ED_ITS ---
HPI - Psych General Chief Complaint: Psychiatric Symptoms Stated Complaint: SI/HI Time Seen by Provider: 08/20/22 16:04 Source: patient and EMS History of Present Illness HPI Narrative: 21-year-old male past medical history of XXY syndrome, developmental disability, support dermatitis, pseudoseizures, [facility] in by ambulance from his [facility] complaining of suicidal ideation with plan he will not disclose. Reports has not been taking his medications times a couple days. Denies illicit drug/ETOH use, HI, abdominal pain, nausea/vomiting, chest pain/shortness of breath MD complaint: suicidal ideation Onset (ago): day(s) Related Data Home Medications Medication Instructions Recorded Confirmed divalproex 500 mg tablet,delayed 1,500 mg PO BEDTIME 05/29/22 08/20/22 release docusate sodium 100 mg capsule 1 cap PO BID 05/29/22 08/20/22 guanfacine 4 mg tablet,extended 4 mg PO BEDTIME 05/29/22 08/20/22 release 24 hr melatonin 3 mg tablet 3 mg PO BEDTIME 05/29/22 08/20/22 propranolol 160 mg capsule,24 160 mg PO DAILY 05/29/22 08/20/22 hr,extended release quetiapine 400 mg tablet 2 tab PO BEDTIME 05/29/22 08/20/22 chlorpromazine 25 mg tablet 25 mg PO TID 08/20/22 08/20/22 lorazepam 2 mg tablet 1 tab PO BID PRN Anxiety 08/20/22 08/20/22 Previous Rx's Medication Instructions Recorded ibuprofen 600 mg tablet 600 mg PO Q8H PRN pain #30 tabs 07/04/22 sennosides 8.6 mg tablet (senna) 8.6 mg PO BEDTIME 30 days #30 tabs 08/10/22 Allergies Allergy/AdvReac Type Severity Reaction Status Date / Time methylphenidate Allergy Unknown UNKNOWN Verified 08/11/22 14:43 [From RITALIN] shrimp [SHRIMP] Allergy Unknown HIVES Verified 08/11/22 14:43 haloperidol [From Haldol] Allergy Involuntary Verified 08/11/22 14:43 Spasms Review of Systems Review of Systems: Constitutional: No Fever, No Chills ENT/Mouth: No Ear Pain, No Nasal Congestion, No sore throat, No Rhinorrhea, No Swallowing Difficulty Eyes: No Eye Pain, No Swelling, No Redness Cardiovascular: No Chest Pain, No SOB Respiratory: No Cough, No Wheezing, No Dyspnea Gastrointestinal: No Nausea, No Vomiting, No Diarrhea, No Constipation, No Abdominal pain Genitourinary: No Dysuria, No Urinary Frequency, No Hematuria, No Flank Pain Musculoskeletal: No joint pain, No Myalgias, No Joint Swelling Skin: No Skin Lesions, No rash Neuro: No Weakness, No Headache Psych: No Anxiety/Panic, + Depression, + SI, No HI/AH/VH, No Social Issues Yes all other systems are reviewed and are negative Constitutional: Constitutional: Reports as per HPI [facility] Past Medical History Attestation statement: The following information was validated with the patient. Medical History Adjustment disorder Chronic abdominal pain Developmental disability Dyspnea Seborrheic dermatitis Seizures XXYY syndrome Surgical History History of testicular surgery Family History Family History Father No problems noted. Mother Hypertension Diabetes Other History of brain cancer Social History Social History Housing: Assisted Living Facility Alcohol intake: never Patient Tobacco Use Status: Former Tobacco user Quit Date: 1 week ago Tobacco use type: Cigarette Years Smoked: 16 years old e-Cigarette/Vaping Use: Currently Using Second Hand Smoke Exposure: Yes Substance Use Type: Crack/Cocaine and Marijuana Advance Directives: No Advance Directives Information Provided: Yes service: No Current occupational status: disabled Cognitive needs: Yes Hearing needs: No Vision needs: No Physical Exam Vital Signs: Vital Signs: Last Vital Signs Temp 98.8 F 08/20/22 16:10 Pulse 91 08/20/22 16:10 Resp 16 08/20/22 16:10 BP 136/79 08/20/22 16:10 Pulse Ox 99 08/20/22 16:10 O2 Del Method 08/20/22 16:10 BMI result Body Mass Index 46.0 Const: General: cooperative and no acute distress Orientation/consciousness: patient oriented x3 Limitations: no limitations HEENT: Head: Yes normal to inspection and Yes atraumatic Ears: hearing grossly normal bilaterally General nose exam: Normal external nose present Face and sinus: Yes normal facial exam Eyes: General: appearance normal, both eyes and all related structures EOM: EOMs intact bilaterally Neck: Neck: Yes normal visual inspection and Yes no meningeal signs Resp: Effort & Inspection: normal respiratory effort and no respiratory distress Auscultation: clear to auscultation bilaterally Cardio: Rate: regular rate Heart sounds: S1 normal heart sound present and S2 normal heart sound present GI: Inspection: Yes normal to inspection Palpation (GI): Soft to palpation, nontender, no guarding and not rigid : General: Yes no CVA tenderness Back/Spine/Pelvis: Back: no CVA tenderness Skin: Rashes: no rashes Wounds: no wounds Neuro: General: patient oriented x3, tone normal, moves all extremities, no meningeal signs, no focal motor deficits and CN's II-XI intact bilaterally Extrem: General: Yes normal to inspection Psych: Attitude: Guarded attititude/behavior present and Avoids eye contact (attititude/behavior) Thought content: Suicidality present and Depressive thoughts present Course Course Course Narrative: -1819--patient was evaluated by CARE team, patient does not feel safe to go back to [facility] today, will re-evaluate patient in the morning. Had recent medication changes yesterday. Has had similar presentations in the past Physician observation initiated at 18 22 as patient needs more time for re- evaluation 2099-- ED care transferred to Dr. Mariano pending CARE team re-eval in the AM MDM - Psych MDM Narrative Medical decision making narrative: 21-year-old male past medical history of XXY syndrome, developmental disability, support dermatitis, pseudoseizures, brought in by ambulance from his [facility] complaining of suicidal ideation with plan he will not disclose. On exam vital signs stable, NAD, nontoxic appearing with physical exam as above, patient withdrawn, avoiding eye contact, suicidal. Recent labs on 08/11 unremarkable. Plan: Drug screen, COVID-19 testing, crisis consult Medical Records Attestation: I reviewed the patient's medical records. Lab Data Attestation: I reviewed the patient's lab results. Labs: Lab Results 08/20/22 Range/Units 17:44 COVID-19 (JULISSA) Negative (Negative) COVID-19 Clin Com See Note Discharge Plan Discharge Clinical Impression: Depression, Suicidal ideation Patient Disposition: Still a Patient Prescriptions: No Action sennosides [senna] 8.6 mg tablet 8.6 mg PO BEDTIME 30 Days Qty: 30 3RF ibuprofen 600 mg tablet 600 mg PO Q8H PRN (Reason: pain) Qty: 30 0RF lorazepam 2 mg tablet 1 tab PO BID PRN (Reason: Anxiety) chlorpromazine 25 mg Tablet 25 mg PO TID docusate sodium 100 mg capsule 1 cap PO BID quetiapine 400 mg tablet 2 tab PO BEDTIME propranolol 160 mg Capsule,Extended Release 24 Hr 160 mg PO DAILY melatonin 3 mg Tablet 3 mg PO BEDTIME divalproex 500 mg Tablet,Delayed Release (Dr/Ec) 1,500 mg PO BEDTIME guanfacine 4 mg Tablet Extended Release 24 Hr 4 mg PO BEDTIME
[2022-08-20 16:10] VITALS: BP 134/86; BP 136/79; PULSE 89; PULSE 91; RESP 16; TEMP 37.1; O2SAT 99; BMI 46.0
--- NOTE | 2022-08-20 16:38 | MHC.CARE ---
CARE Team receives a call from Gricel Duncan from [facility]. She identifies that pt was en route to [facility], however, became dysregulated in the ambulance so was re-routed here, as he stated a desire to come to this ED. Gricel adds that he was discontinued from his psychiatric care with Jen Purvis, and she identifies feeling very concerned that he will not have psychiatric services. She adds that she believes his thorazine was discontinued abruptly without a taper. CARE Team messages Dr. Purvis regarding plan for pt's meds, awating response.
--- NOTE | 2022-08-20 17:17 | PHA.MEDREC ---
Pharmacy Consult ? Medication Reconciliation Pharmacy has completed the medication reconciliation.
[2022-08-20 18:10] LABS: COVID-19 Test Negative (Negative); IDNOW Serial# 55D5AD1C
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
[2022-08-20 19:29] VITALS: BP 135/76; PULSE 92; RESP 19; TEMP 36.6; O2SAT 97
--- NOTE | 2022-08-20 20:34 | PC.NURSE ---
Assumed care of pt. at 1900. Pt. resting quietly in room. Pt. used called moreira to use the restroom. Walked to restroom with RN. Pt. laying in bed with [facility] staff nearby. staff walked out of room. Hallway of ED was busy with intakes, pt. acted out and put his hands around his neck and said he was going to . This sign writer letterer or painter went into room and asked what was going on and asked him to move his hands from his neck. Pt immediately complied. Pt. asked if he needed anything else. Pt. denied needed any other needs. Pt. denied pain. will continue to monitor.
[2022-08-20 23:54] VITALS: BP 116/65; PULSE 90; RESP 17; TEMP 36.8; O2SAT 95
[2022-08-21] MEDS: chlorproMAZINE HCl 25 MG TABLET PO ×2 (01:29→12:25)
[2022-08-21] MEDS: Melatonin 3 MG TABLET PO (01:29)
[2022-08-21] MEDS: Divalproex Sodium 500 MG TABLET.DR 1500 MG PO (01:29)
[2022-08-21] MEDS: QUEtiapine Fumarate 400 MG TABLET 800 MG PO (01:30)
--- NOTE | 2022-08-21 11:32 | MHC.CARE ---
Spoke to long-term staff, Jesus who is ready to come last picker patient who is usually transported via ambulance due to his history of aggression and trying staff said they know patient well and are comfortable bringing him home. 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
--- NOTE | 2022-08-21 11:40 | PC.NURSE ---
this nurse took over care of patient at 11am from shawna, patient currently sleeping, 1:1 sitter at bedside, am meds were held per charge nurse as to let patient sleep, pt to discharge back to longterm, will continue to monitor
[2022-08-21 11:45] VITALS: RESP 18
[2022-08-21 12:25] VITALS: BP 117/66; PULSE 93; RESP 18; TEMP 36.7; O2SAT 96
[2022-08-21] MEDS: Docusate Sodium 100 MG CAPSULE PO (12:25)
== END 2022-08-21 12:40 | disposition home or self-care (01) ==
PROVIDERS: Physician Assistant; Emergency Provider Student in an Organized Health Care Education/Training Program
DX: R45.851 Suicidal ideations (principal); F32.A Depression, unspecified; Z20.822 Contact with and (suspected) exposure to COVID-19; Q98.0 Klinefelter syndrome karyotype 47, XXY; F63.81 Intermittent explosive disorder; F89 Unspecified disorder of psychological development; F17.210 Nicotine dependence, cigarettes, uncomplicated; F14.10 Cocaine abuse, uncomplicated; E66.9 Obesity, unspecified; Z68.42 Body mass index [BMI] 45.0-49.9, adult; Z79.899 Other long term (current) drug therapy
CPT/HCPCS: 87635; 99284; 99285

== ENCOUNTER 2022-09-19 15:22 | Emergency (ER) | payer MEDICAID, SELFPAY ==
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
[2022-09-19 15:38] VITALS: BP 119/74; BP 140/68; PULSE 100; PULSE 96; RESP 20; TEMP 36.6; O2SAT 95; O2SAT 98; BMI 47.2
[2022-09-19] MEDS: LORazepam 1 MG TABLET 2 MG PO (15:46)
--- NOTE | 2022-09-19 15:48 | PC.NURSE ---
Pt hitting self, agreeable to take medications as ordered. Pt observer at bedside
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
== END 2022-09-19 19:42 | disposition home or self-care (01) ==
PROVIDERS: Emergency Provider Emergency Medicine
DX: F63.81 Intermittent explosive disorder (principal); R45.851 Suicidal ideations; G47.33 Obstructive sleep apnea (adult) (pediatric); F14.10 Cocaine abuse, uncomplicated; F12.10 Cannabis abuse, uncomplicated; F17.210 Nicotine dependence, cigarettes, uncomplicated; Z79.899 Other long term (current) drug therapy; Z71.6 Tobacco abuse counseling
CPT/HCPCS: 99282; 99283

== ENCOUNTER 2022-10-08 19:17 | Observation (INO) | payer MEDICAID, SELFPAY ==
--- NOTE | ~2022-10-08 | CT_ITS ---
EXAMINATION: CT ABDOMEN AND PELVIS WITH CONTRAST CLINICAL INFORMATION: Severe abdominal pain COMPARISON: 11/11/2020 TECHNIQUE: Multidetector volumetric images were obtained from the superior aspect of the liver through the pubic symphysis following administration 85 mL of Omnipaque 350 intravenous contrast. Sagittal and coronal reformatted images were obtained on the technologist's workstation. Oral contrast: No This CT examination was performed using dose optimization techniques as appropriate, variously including the following: *Automated exposure control *Adjustment of mA and/or kV according to patient size (this includes techniques or standardized protocols for targeted exams where dose is matched to indication/reason for exam; i.e. extremities or head) *Use of iterative reconstruction technique DLP: 2094 mGy-cm FINDINGS: LUNG BASES: Stable granulomata 1.5 mm left base laterally. LIVER, GALLBLADDER, AND BILIARY TREE: Changes of severe hepatic steatosis. No discrete lesion. Hepatomegaly measuring up to 24.5 cm. No biliary ductal dilatation. The gallbladder is unremarkable with no evidence of radiopaque gallstones, gallbladder wall thickening, or obvious pericholecystic inflammatory changes. PANCREAS: Unremarkable. SPLEEN: Unremarkable. ADRENAL GLANDS: Unremarkable. KIDNEYS AND URETERS: The kidneys are normal in size, shape, and attenuation. No hydronephrosis, hydroureter, or calculi seen. No perinephric stranding. BLADDER: Unremarkable. GASTROINTESTINAL TRACT: No large bowel abnormality. Ileocecal region appears normal. At the expected origin of the appendix, there is a small amount of fluid tracking into the mesentery. The appendix is not definitively identified. In the absence of any interval appendectomy since 2019, this appearance may be indicative of very early appendicitis. Please correlate with clinical symptomatology and laboratory assessment. Please see meehan images. ABDOMINAL WALL: No significant hernia is appreciated. LYMPH NODES: Normal. VASCULAR: Unremarkable. PELVIC VISCERA: Unremarkable. OSSEOUS STRUCTURES: Unremarkable. CT/CT abdomen pelvis w IV con IMPRESSION: Small amount of fluid tracking into the mesentery at the expected origin of the appendix. The appendix is not definitively identified. In the absence of any interval appendectomy since 2019, this appearance may be indicative of very early appendicitis. Please correlate with clinical symptomatology and laboratory assessment. Please see meehan images. Fleischner guidelines were followed.
--- NOTE | ~2022-10-08 | CT_ITS ---
EXAMINATION: CT ENTEROGRAPHY ABDOMEN AND PELVIS WITH CONTRAST CLINICAL INFORMATION: Right lower quadrant pain COMPARISON: Previous CT of the abdomen and pelvis most recent September 2022 TECHNIQUE: Study performed with oral VoLumen (1350 mL) and 480 mL of water to distend the abdomen. The patient was injected with 85 mL Omnipaque 350 intravenous contrast which was administered without adverse effect. Coronal and sagittal reformatted images were obtained at the technologist's workstation. This CT examination was performed using dose optimization techniques as appropriate, variously including the following: *Automated exposure control *Adjustment of mA and/or kV according to patient size (this includes techniques or standardized protocols for targeted exams where dose is matched to indication/reason for exam; i.e. extremities or head) *Use of iterative reconstruction technique DLP: 1352 mGy-cm FINDINGS: GASTROINTESTINAL FINDINGS: Stomach: Well-distended and normal in appearance. Small intestine: Satisfactorily distended and normal in appearance. Large intestine: Well-distended and normal in appearance. No perirectal changes demonstrated. The appendix is is not seen. Previously identified small amount of fluid in the right lower quadrant is no longer seen. Additional findings: No abnormal enhancement of the vasa recta or significant mesenteric or retroperitoneal lymphadenopathy is seen. No abdominal abscess or fistulous tract demonstrated. ABDOMINAL AND PELVIC CT FINDINGS: Liver, gallbladder, biliary tract: Enlarged fatty liver. Probable area of focal fatty sparing in the posterior lateral segment of the left lobe. Probable focal fatty sparing adjacent to the gallbladder. No other focal liver lesion. The gallbladder is contracted. No biliary duct dilatation. Pancreas: Normal Spleen: Normal Adrenal glands and kidneys: Normal Ureters and bladder: Normal Lymphovascular structures: There is shotty small bowel mesentery and retroperitoneal lymphadenopathy. No enlarged lymph nodes. No ascites. Bones: Normal Lung bases: Subsegmental atelectasis at the right lung base. Small umbilical hernias containing fat. CT/CT enterography IMPRESSION: Appendix not identified. No CT evidence of appendicitis. Shotty small bowel mesentery and retroperitoneal lymphadenopathy. No evidence of colitis or enteritis. Enlarged fatty liver.
[2022-10-08 19:29] VITALS: BP 130/86; BP 134/75; PULSE 88; PULSE 89; RESP 20; TEMP 37.2; O2SAT 95; O2SAT 96; BMI 33.3
--- NOTE | 2022-10-08 19:48 | ED_ITS ---
HPI - Abdominal Pain General Chief Complaint: Abdominal Pain Stated Complaint: Abd Pain Time Seen by Provider: 10/08/22 19:34 Source: patient and EMS Mode of arrival: EMS Limitations: no limitations History of Present Illness HPI narrative: This is a 21-year-old male?XXY syndrome, developmental disability,? presenting to the emergency department from long-term with reports of generalized abdominal pain worse in lower abdomen, nausea, vomiting, diarrhea times a week worsening over the past few hours. Patient tells me got worse after he ate ice cream. Also as patient was on his way to the emergency department he was noted to have a tonic-clonic seizures according to EMS, it was brief. No postictal state. Patient denies chest pain, shortness of breath, fevers, chills, weakness, headache, vision changes, dizziness, head trauma. Related Data Home Medications Medication Instructions Recorded Confirmed divalproex 500 mg tablet,delayed 1,500 mg PO BEDTIME 05/29/22 08/20/22 release guanfacine 4 mg tablet,extended 4 mg PO BEDTIME 05/29/22 08/20/22 release 24 hr melatonin 3 mg tablet 3 mg PO BEDTIME 05/29/22 08/20/22 propranolol 160 mg capsule,24 160 mg PO DAILY 05/29/22 08/20/22 hr,extended release quetiapine 400 mg tablet 2 tab PO BEDTIME 05/29/22 08/20/22 chlorpromazine 25 mg tablet 25 mg PO TID 08/20/22 08/20/22 lorazepam 2 mg tablet 1 tab PO BID PRN Anxiety 08/20/22 08/20/22 Previous Rx's Medication Instructions Recorded ibuprofen 600 mg tablet 600 mg PO Q8H PRN pain #30 tabs 07/04/22 sennosides 8.6 mg tablet (senna) 8.6 mg PO BEDTIME 30 days #30 tabs 08/10/22 docusate sodium 100 mg capsule 100 mg PO BID 30 days #60 caps 08/31/22 loperamide 2 mg capsule 2 mg PO Q6H PRN loose stool #14 10/08/22 caps ondansetron 4 mg disintegrating 4 mg PO Q6H PRN nausea and 10/08/22 tablet vomiting #14 tabs Allergies Allergy/AdvReac Type Severity Reaction Status Date / Time methylphenidate Allergy Unknown UNKNOWN Verified 08/11/22 14:43 [From RITALIN] shrimp [SHRIMP] Allergy Unknown HIVES Verified 08/11/22 14:43 haloperidol [From Haldol] Allergy Involuntary Verified 08/11/22 14:43 Spasms Review of Systems Review of Systems Constitutional : No Weight loss, No Fever, No Chills, No Fatigue, No Malaise ENT/Mouth : No sore throat, No Rhinorrhea Eyes: No Eye Pain, No Swelling, No Redness Cardiovascular : No Chest Pain, No SOB, No Dyspnea on Exertion, No Orthopnea, No Edema, No Palpitations Respiratory : No Cough, No Sputum, No Wheezing Gastrointestinal : + Nausea, + Vomiting, + Diarrhea, No Constipation, + abdominal Pain, No Hematochezia, No Melena Genitourinary : No Dysuria, No Urinary Frequency, No Hematuria, Musculoskeletal : No joint pain, No Myalgias, No Joint Swelling Skin : No Skin Lesions, No rash Neuro : No Weakness, No Numbness, No Dizziness, No Headache All other systems reviewed and are negative Yes all other systems are reviewed and are negative [facility] Past Medical History Attestation statement: The following information was validated with the patient. Source: old records reviewed and nursing notes reviewed Medical History Adjustment disorder Chronic abdominal pain Developmental disability Dyspnea Seborrheic dermatitis Seizures XXYY syndrome Surgical History History of testicular surgery Family History Family History Father No problems noted. Mother Hypertension Diabetes Other History of brain cancer Social History Social History Housing: Assisted Living Facility Alcohol intake: never Patient Tobacco Use Status: Former Tobacco user Quit Date: 1 week ago Tobacco use type: Cigarette Years Smoked: 16 years old e-Cigarette/Vaping Use: Currently Using Second Hand Smoke Exposure: Yes Substance Use Type: Crack/Cocaine and Marijuana Advance Directives: No Advance Directives Information Provided: No service: No Current occupational status: disabled Cognitive needs: Yes Hearing needs: No Vision needs: No Physical Exam ED Vital Signs: Vital Signs - 24 hr 10/08/22 19:29 10/08/22 20:54 10/08/22 22:00 Temperature 99.0 F 98.5 F 98.0 F Pulse Rate 89 85 86 Respiratory Rate 20 16 16 Blood Pressure 134/75 120/55 L 119/70 Pulse Oximetry 95 96 98 Oxygen Delivery Method Room Air Room Air Room Air BMI result Body Mass Index 33.3 vss Appearance: Alert.? Oriented X3.? No acute distress.? Head: Normocephalic, atraumatic, no step-offs or deformities Eyes: Pupils equal, round and reactive to light.? ENT: Pharynx normal.? Neck: Normal inspection.? Neck supple.? CVS: Normal heart rate and rhythm.? Pulses normal.? Respiratory: No respiratory distress.? Breath sounds normal.? Abdomen: Soft and diffusely tender worse to lower abd, nondistended.? Skin: Skin warm and dry.? Normal skin color.? Normal skin turgor.? Extremities: No lower extremity edema.? No calf ttp. 5/5 strength to bilateral upper and lower extremities Back: No midline tenderness, no C-spine tenderness, full range of motion, no CVA tenderness bilaterally Neuro: Oriented X 3.? No motor deficit.? No sensory deficit. CN 2-12 intact Course Reevaluation(s) Reevaluation #1: Patient's CBC appears to be within normal limits, chemistry appears to be around patient's baseline does not require any intervention at this time, lipase elevated however not meeting criteria for pancreatitis. Patient COVID negative. CT of the abdomen and pelvis pending. To note I was called to the CT room as patient was supposedly having a seizure, however patient was saying he was having a seizure and moving all limbs, suspected pseudo-seizure. Patient does have a history of this. No loss of bladder or bowel control, no tongue trauma, no postictal state., Time: 22:14 Reevaluation #2: CT scan shows signs of possible appendicitis. Will reach out to Dr. Argueta. Time: 23:13 Reevaluation #3: Due to length of times that patient is reporting unlikely appendicitis per Dr. Argueta however, patient poor historian will keep him overnight for observation and surgery will see him tomorrow morning. Time: 23:14 Medications Administered Discontinued Medications Generic Name Dose Route Start Last Admin Trade Name Freq PRN Reason Stop Dose Admin Iohexol 100 ml 10/08/22 22:03 10/08/22 22:04 Iohexol 350 Mg/Ml 100 Ml Infus..Btl IV 10/08/22 22:04 90 ml ONCE ONE Administration MDM - Abdominal Pain MDM Narrative Medical decision making narrative: 21-year-old male presents with diffuse abdominal pain, worse after eating ice cream. Also reports nausea, vomiting, diarrhea. Denies sick contacts. Physical examination is diffusely tender abdomen, normal bowel sounds, nondistended. No peritoneal signs on my exam. Likely gastroenteritis or abdominal cramping. Unlikely acute abdomen, appendicitis, cholecystitis, small or large bowel obstruction, cholecystitis, pancreatitis. Will obtain labs, imaging. Will place patient on seizure precautions although likely behavioral seizures. Medical Records Attestation: I reviewed the patient's medical records. Lab Data Attestation: I reviewed the patient's lab results. Result diagrams: 10/08/22 21:09 10/08/22 21:09 Labs: Lab Results 10/08/22 10/08/22 10/08/22 Range/Units 21:09 21:09 21:10 WBC 9.9 (4.8-10.8) X10*3/uL RBC 4.63 (4.60-5.80) X10*6/uL Hgb 13.7 L (14.0-18.0) g/dl Hct 42.6 (42.0-52.0) % MCV 92.0 (80.0-98.0) fL MCH 29.6 (27.0-33.0) pg MCHC 32.2 (31.0-36.0) g/dl RDW 14.2 (11.0-16.0) % Plt Count 216 (160-400) X10*3/uL MPV 10.1 (9.4-12.4) fL Immature Gran % (Auto) 0.3 (0.0-0.4) % Neut % (Auto) 37.9 L (45-73) % Lymph % (Auto) 43.2 H (20-40) % Nobles % (Auto) 9.6 (2-11) % Eos % (Auto) 8.5 H (0-4) % Baso % (Auto) 0.5 (0-2) % Lymph # (Auto) 4.3 (1.2-4.9) X10*3/uL Nobles # (Auto) 1.0 (0.1-1.2) X10*3/uL Eos # (Auto) 0.8 H (0.0-0.4) X10*3/uL Baso # (Auto) 0.1 (0.0-0.2) X10*3/uL Abs Immat Gran (auto) 0.03 (0.00-0.03) X10*3/uL Absolute Neuts (auto) 3.8 (2.0-8.3) x10*3/uL Absolute Nucleated RBC 0.000 (0.0-0.012) X10*3/uL Nucleated RBC % (auto) 0.0 (0.0-0.2) /100WBC Sodium 141 (135-145) mmol/L Potassium 4.3 (3.3-5.1) mmol/L Chloride 105 (96-108) mmol/L Carbon Dioxide 21 L (22-29) mmol/L Anion Gap 19 (12-20) BUN 19 H (9-16) mg/dL Creatinine 0.83 (0.5-1.4) mg/dL Estim Creat Clear Calc 204.4 Estimated GFR > 60 Random Glucose 118 H (60-115) mg/dL Calcium 9.6 (8.4-10.2) mg/dL Magnesium 1.9 (1.6-2.6) mg/dL Total Bilirubin 0.3 (0.0-1.0) mg/dL AST 45 H (5-37) U/L ALT 51 H (0-40) U/L Alkaline Phosphatase 120 H (39-117) U/L Total Protein 7.9 (6.5-8.0) g/dL Albumin 3.9 (3.5-5.0) g/dL Lipase 103 H (8-78) U/L COVID-19 (JULISSA) Negative (Negative) COVID-19 Clin Com See Note Critical Care Time Critical Care Time Critical Care Time: Yes Total Critical Care Time: 35 Attestation: I attest to this time spent taking care of the patient, obtaining history, physical, reviewing labs, imaging, speaking to my attending, speaking to specialist. Discharge Plan Discharge Clinical Impression: Psychogenic nonepileptic seizure, Abdominal pain, Nausea & vomiting, Diarrhea Patient Disposition: Admitted As Inpatient Instructions: Acute Nausea and Vomiting (ED), Acute Diarrhea (ED), Abdominal Pain (ED) Additional Instructions: Take your medications as prescribed. If you were prescribed antibiotics today, it is important that you take your medication to their entirety, do not skip any doses, do not finish them early. Follow-up with your primary care provider this week. Return to the emergency department with new or worsening symptoms. Such as fevers, chills, chest pain, shortness of breath, nausea, vomiting, dizziness, headache, vision changes, lethargy In case of emergency call 911 Prescriptions: New ondansetron 4 mg tablet,disintegrating 4 mg PO Q6H PRN (Reason: nausea and vomiting) Qty: 14 0RF loperamide 2 mg capsule 2 mg PO Q6H PRN (Reason: loose stool) Qty: 14 0RF No Action sennosides [senna] 8.6 mg tablet 8.6 mg PO BEDTIME 30 Days Qty: 30 3RF docusate sodium 100 mg capsule 100 mg PO BID 30 Days Qty: 60 3RF ibuprofen 600 mg tablet 600 mg PO Q8H PRN (Reason: pain) Qty: 30 0RF lorazepam 2 mg tablet 1 tab PO BID PRN (Reason: Anxiety) chlorpromazine 25 mg Tablet 25 mg PO TID quetiapine 400 mg tablet 2 tab PO BEDTIME propranolol 160 mg Capsule,Extended Release 24 Hr 160 mg PO DAILY melatonin 3 mg Tablet 3 mg PO BEDTIME divalproex 500 mg Tablet,Delayed Release (Dr/Ec) 1,500 mg PO BEDTIME guanfacine 4 mg Tablet Extended Release 24 Hr 4 mg PO BEDTIME Referrals: [facility] [place] [facility] [Provider Group] - 2 weeks Physician,Unknown J [Primary Care Provider] - 2 days
--- OUTSIDE RECORDS SUMMARY | 2022-10-08 20:23 | XMS_ITS | Continuity of Care Document ---
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 Discharge Disposition: A-D/C Home Attending Physician: Jeff Cook DO Admitting Physician: Jeff Cook DO Referring Physician: Not on Staff, Referring MD Allergies, Adverse Reactions, Alerts Substance Reaction Severity Status Ritalin Active Haldol Severe Dystonia Persistent Severe Active Lactose Active Medications divalproex sodium 500 mg oral enteric coated tablet 3 tablet = 1,500 mg, By Mouth, Daily at bedtime, 0 Refills, Maintenance, 03/08/21 18:32:00 EDT, ; Start Date: 03/08/21 Status: OrderedguanFACINE 4 mg oral tablet, extended release 1 tablet = 4 mg, By Mouth, Daily at bedtime, do not crush or chew, Maintenance, 07/29/22 17:25:00 EDT, ER Tablet Start Date: 07/29/22 Status: Orderedibuprofen 800 mg oral tablet 800 mg, 1, tablet, By Mouth, 2 times a day, PRN, Maintenance, as needed, 07/28/22 7:43:00 EDT, ; Start Date: 07/28/22 Status: OrderedInderal LA 160 mg oral capsule, extended release 1 capsule = 160 mg, By Mouth, Daily in AM, Maintenance, 07/28/22 7:35:00 EDT, CR Capsule, ; Start Date: 07/28/22 Status: OrderedLORazepam 1 mg oral tablet 1 tablet = 1 mg, By Mouth, Every 8 hours, PRN for anxiety, 0 Refills, Maintenance, 07/29/22 17:23:00EDT, Tablet Start Date: 07/29/22 Status: Orderedmelatonin 3 mg oral tablet 1 tablet = 3 mg, By Mouth, Daily at bedtime, 0 Refills, Maintenance, 04/13/19 10:11:53 EDT, Tablet Start Date: 04/13/19 Status: OrderedSenna 8.6 mg oral tablet 8.6 mg, 1, tablet, By Mouth, Daily at bedtime, Maintenance, 07/28/22 7:42:00 EDT, Tablet, ; Start Date: 07/28/22 Status: OrderedSEROquel 400 mg oral tablet 2 tablet = 800 mg, By Mouth, Daily at bedtime, Maintenance, 07/28/22 7:36:00 EDT, ; Start Date: 07/28/22 Status: OrderedThorazine Tablet = 25 mg, By Mouth, 3 times a day, 0 Refills, Maintenance, 07/28/22 7:39:00 EDT, Tablet, ; Start Date: 07/28/22 Status: OrderedTylenol Sinus + Headache Day 325 mg-5 mg oral tablet 2 tablet, By Mouth, Every 6 hours, PRN Headache, Maintenance, 07/29/22 17:27:00 EDT Start Date: 07/29/22 Status: OrderedViagra 50 mg oral tablet 1 tablet = 50 mg, By Mouth, Daily, PRN as needed for erectile dysfunction, Maintenance, 07/28/22 7:44:00 EDT, Tablet, ; Start Date: 07/28/22 Status: Orderedvitamin A & D topical cream 1 application, Topically, 2 times a day, face, Maintenance, 07/28/22 7:41:00 EDT, Cream, ; Start Date: 07/28/22 Status: Ordered Problem List Condition Effective Dates Status Health Status Informant 46,XXYY aneuploidy(Confirmed) 05/01/13 Active Intellectual disability(Confirmed) 05/01/13 Active 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 Mild SOB. Pain does not radiate. Per staff, pt with previous CP complaints in a past.; Reason: Other:; Chest Pain; Clinical Question(s): Other: COMPARISON: 07/27/2022 FINDINGS: LINES AND TUBES: None. LUNGS AND PLEURA: Clear lungs. Normal pulmonary vascularity. No pleural effusion. No pneumothorax. HEART, MEDIASTINUM AND SAMUEL: Heart is normal in size. Normal upper mediastinal and hilar contour. BONES AND SOFT TISSUES: No acute abnormality. IMPRESSION: No acute abnormality. WSN: [id number] Ordering Physician: Chon Casillas Dictated By: Brandon Beck MD Dictated Date/Time: 08/02/22 1:15 pm Reviewed By: Brandon Beck MD Signed By: Brandon Beck MD Signed Date/Time: 08/02/22 1:15 pm Transcribed By: KYRA Transcribed Date/Time: 08/02/22 1:15 pm Vital Signs Most recent to oldest 1 2 3 [Reference Range]: Weight 180 kg (08/02/22 12:21 PM) Oxygen Saturation [94-100 %] 94 % 96 % 97 % (08/02/22 2:49 PM) (08/02/22 1:50 PM) (08/02/22 12:21 PM) Pulse Rate [55-90 bpm] 102 bpm 114 bpm 120 bpm *H* *H* *H* (08/02/22 2:49 PM) (08/02/22 1:50 PM) (08/02/22 12:21 PM) Blood Pressure [90-138/55-84 mm 124/86 mm Hg 140/89 mm Hg 120/76 mm Hg Hg] (08/02/22 2:49 PM) *H* (08/02/22 12:21 P M) (08/02/22 1:50 PM) Respiratory Rate [16-30 br/min] 18 br/min 18 br/min (08/02/22 2:49 PM) (08/02/22 12:21 PM) Temperature [96.8-100.4 DegF] 98.1 DegF 97.8 DegF 97 .7 DegF (08/02/22 2:49 PM) (08/02/22 1:50 PM) (08/02/22 12:21 PM) Mode of Delivery (Oxygen) Room air Room air Room a ir (08/02/22 2:49 PM) (08/02/22 1:50 PM) (08/02/22 12:21 PM) Blood pressure sites Arm, right Arm, right (08/02/22 2:49 PM) (08/02/22 1:50 PM) Temperature Route Oral Oral Oral (08/02/22 2:49 PM) (08/02/22 1:50 PM) (08/02/22 12:21 PM) Dry Weight 180 kg (08/02/22 12:21 PM) Social History Social History Type Response Smoking Status 10 or more cigarettes (1/2 p ack or more)/day in last 30 days entered on: 08/05/19 Sex Note BHSPowerscribe , CIS S: TRANSCRIBE Brandon Beck MD: VERIFY Event Display: Result: Authored Date: Chest 2 Views Frontal and Lat Hx of Present Illness: Pt from custodial, [place] the [place] yesterday. Mild SOB. Pain does not radiate. Per staff, pt with previous CP complaints in a past.; Reason: Other:; Chest Pain; Clinical Question(s): Other: COMPARISON: 07/27/2022 FINDINGS: LINES AND TUBES: None. LUNGS AND PLEURA: Clear lungs. Normal pulmonary vascularity. No pleural effusion. No pneumothorax. HEART, MEDIASTINUM AND SAMUEL: Heart is normal in size. Normal upper mediastinal and hilar contour. BONES AND SOFT TISSUES: No acute abnormality. IMPRESSION: No acute abnormality. WSN: [id number] Ordering Physician: Chon Casillas Dictated By: Brandon Beck MD Dictated Date/Time: 08/02/22 1:15 pm Reviewed By: Brandon Beck MD Signed By: Brandon Beck MD Signed Date/Time: 08/02/22 1:15 pm Transcribed By: KYRA Transcribed Date/Time: 08/02/22 1:15 pm Care Team PersonnelName: Kymberly FLORES, Alf Fitzgerald Address: [address] [place] [address] [facility] [place], [place] [address]
--- OUTSIDE RECORDS SUMMARY | 2022-10-08 20:23 | XMS_ITS | Continuity of Care Document ---
:2000 Author Organization [facility] Address [address] [place] [phone]- Care Team Providers Name Role Phone Kymberly FLORES, Alf Fitzgerald Primary Care Physician Encounter [facility] Date(s): 01/31/20 - 01/31/[address] [address]- [facility] Discharge Disposition: A-D/C Home Attending Physician: Mp Hermosillo MD Admitting Physician: Mp Hermosillo MD Referring Physician: Not on Staff, Referring MD Allergies, Adverse Reactions, Alerts Substance Reaction Severity Status Ritalin Active Haldol Severe Dystonia Persistent Severe Active Shrimp Active Medications clindamycin 1% topical gel 1 application, Topically, 2 times a day, # 30 Gm, 0 Refills, Maintenance, 10/29/19 13:27:42 EST, Gel Start Date: 10/29/19 Status: OrderedDoxycycline 50 mg, 2 times a day, Maintenance, 10/29/19 13:27:56 EST Start Date: 10/29/19 Status: OrderedGuanfacine 2 mg, By Mouth, Daily at bedtime, Refills 0, Maintenance, 04/09/19 9:14:16 EDT Start Date: 04/09/19 Status: Orderedmelatonin 3 mg oral tablet 1 tablet = 3 mg, By Mouth, Daily at bedtime, PRN for insomnia, # 60 tablet, 0 Refills, Maintenance, 04/13/19 10:11:53 EDT, Tablet Start Date: 04/13/19 Status: OrderedOmega-3 oral capsule 0 Refills, Maintenance, 04/09/19 9:14:48 EDT Start Date: 04/09/19 Status: OrderedPolyethylene Glycol Powder See Instructions, 17 Gm By Mouth BID, 0 Refills, Maintenance, 04/19/17 10:34:56 Start Date: 04/19/17 Status: OrderedSEROquel 50 mg oral tablet 1 tablet = 50 mg, By Mouth, Daily, PRN Agitation, # 30 tablet, 0 Refills, Maintenance, 04/13/19 10:12:35 EDT, Tablet Start Date: 04/13/19 Status: OrderedSEROquel XR 300 mg oral tablet, extended release 2 tablet = 600 mg, By Mouth, Daily at bedtime, # 60 tablet, 0 Refills, Maintenance, 04/13/19 10:14:46 EDT, ER Tablet Start Date: 04/13/19 Status: Ordered Problem List Condition Effective Dates Status Health Status Informant 46,XXYY aneuploidy(Confirmed) 05/01/13 Active Intellectual disability(Confirmed) 05/01/13 Active 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 Comes and goes but does not resolve Some SOB. Has had a cough for a few days. +Chills, no fevers / Pneumonia COMPARISON: 11/30/2019 FINDINGS: LINES AND TUBES: None. LUNGS AND PLEURA: Clear lungs. Normal pulmonary vascularity. No pleural effusion. No pneumothorax. HEART, MEDIASTINUM AND SAMUEL: Heart is normal in size. Normal mediastinal and hilar contour. BONES AND SOFT TISSUES: No acute abnormality. IMPRESSION: No evidence of acute abnormality. WSN: [id number] Ordering Physician: Donnie Jesus Dictated By: Brandon Spicer MD Dictated Date/Time: 01/31/20 3:13 pm Reviewed By: Brandon Spicer MD Signed By: Brandon Spicer MD Signed Date/Time: 01/31/20 3:13 pm Transcribed By: KYRA Transcribed Date/Time: 01/31/20 3:12 pm Vital Signs Most recent to oldest 1 2 3 [Reference Range]: Height 196 cm (01/31/20 2:24 PM) Weight 136.5 kg (01/31/20 2:24 PM) Oxygen Saturation [94-100 %] 97 % 97 % 96 % (01/31/20 4:59 PM) (01/31/20 4:31 PM) (01/31/20 4:11 P M) Pulse Rate [55-90 bpm] 89 bpm 84 bpm 87 bpm (01/31/20 4:59 PM) (01/31/20 4:31 PM) (01/31/20 4:11 P M) Blood Pressure [90-138/55-84 134/49 mm Hg 130/60 mm Hg 111 /46 mm Hg mm Hg] (01/31/20 4:59 PM) (01/31/20 4:31 PM) (01/31/20 4:11 P M) Respiratory Rate [16-30 24 br/min 24 br/min 22 br/mi n br/min] (01/31/20 4:59 PM) (01/31/20 4:31 PM) (01/31/20 4:11 P M) Temperature [96.8-100.4 99.2 DegF DegF] (01/31/20 2:24 PM) Mode of Delivery (Oxygen) Room air Room air Room a ir (01/31/20 4:59 PM) (01/31/20 4:31 PM) (01/31/20 4:11 P M) Blood pressure sites Arm, right Arm, right Arm, right (01/31/20 4:59 PM) (01/31/20 4:31 PM) (01/31/20 4:01 P M) Temperature Route Temporal (01/31/20 2:24 PM) Dry Weight 136.5 kg (01/31/20 2:24 PM) Weight Obtained Via Patient/family stated (01/31/20 2:24 PM) Dry Weight Obtained Via Patient/family stated (01/31/20 2:24 PM) Social History Social History Type Response Smoking Status 10 or more cigarettes (1/2 p ack or more)/day in last 30 days entered on: 08/05/19 Sex
--- OUTSIDE RECORDS SUMMARY | 2022-10-08 20:23 | XMS_ITS | Continuity of Care Document ---
:1998 Author Organization [facility] Address [address] [place] [address]- Care Team Providers Name Role Phone Kymberly FLORES, Alf Fitzgerald Primary Care Physician Encounter [facility] Date(s): 10/01/22 - 10/01/[address] [address]- Discharge Disposition: A-D/C Home Attending Physician: Eda Truong MD Admitting Physician: Eda Truong MD Referring Physician: Not on Staff, Referring [...] Date: 07/28/22 Status: Ordered Problem List Condition Confirmation Course Effective Dates Status Health Stat us Informant 46,XXYY aneuploidy Confirmed 05/01/13 Active Intellectual Confirmed 05/01/13 Active disability Intermittent Confirmed 05/01/13 Active Explosive Disorder Mood disorder NOS Confirmed 04/25/13 Active Vital Signs Most recent to oldest [Reference Range]: 1 2 Oxygen Saturation [94-100 %] 99 % 99 % (10/01/22 6:54 PM) (10/01/22 3:26 PM) Pulse Rate [55-90 bpm] 84 bpm 74 bpm (10/01/22 6:54 PM) (10/01/22 3:26 PM) Blood Pressure [90-138/55-84 mm Hg] 123/77 mm Hg 118/ 63 mm Hg (10/01/22 6:54 PM) (10/01/22 3:26 PM) Respiratory Rate [16-30 br/min] 20 br/min 18 br/mi n (10/01/22 6:54 PM) (10/01/22 3:26 PM) Temperature [96.8-100.4 DegF] 98.7 DegF (10/01/22 3:26 PM) Mode of Delivery (Oxygen) Room air Room air (10/01/22 6:54 PM) (10/01/22 3:26 PM) Blood pressure sites Arm, left Arm, left (10/01/22 6:54 PM) (10/01/22 3:26 PM) Temperature Route Oral (10/01/22 3:26 PM) Social History Social History Type Response Smoking Status 10 or more cigarettes (1/2 p ack or more)/day in last 30 days entered on: 08/05/19 Sex Patient Care team information PersonnelName: Kymberly FLORES, Alf Fitzgerald Address: Address: [address] [facility] [place], [place] [address]
--- OUTSIDE RECORDS SUMMARY | 2022-10-08 20:23 | XMS_ITS | Continuity of Care Document ---
:2000 Author Organization [facility] Address [address] [place] [phone]- Care Team Providers Name Role Phone Kymberly FLORES, Alf Fitzgerald Primary Care Physician [place] [facility] [place] [facility] R [id number] Date(s): 07/27/22 - 07/27/[address] [address]- Discharge Disposition: A-D/C Home Attending Physician: Era Trinh DO Admitting Physician: Era Trinh DO Referring Physician: Not on Staff, Referring MD Allergies, Adverse Reactions, Alerts Substance Reaction Severity Status Ritalin Active Haldol Severe Dystonia Persistent Severe Active Lactose Active Medications clindamycin 1% topical gel 1 application, Topically, 2 times a day, # 30 Gm, 0 Refills, Maintenance, 10/29/19 13:27:42 EST, Gel Start Date: 10/29/19 Status: Ordereddivalproex sodium 250 mg oral enteric coated tablet 1 tablet = 250 mg, By Mouth, Daily at bedtime, 0 Refills, Maintenance, 03/08/21 18:32:00 EDT, Partial fill upon patient request if the prescription is for a schedule II opioid drug. Start Date: 03/08/21 Status: Ordereddivalproex sodium 500 mg oral enteric coated tablet 1 tablet = 500 mg, By Mouth, 2 times a day, 8a-8p, 0 Refills, Maintenance, 03/08/21 18:32:00 EDT, Partial fill upon patient request if the prescription is for a schedule II opioid drug. Start Date: 03/08/21 Status: OrderedDocusate = 150 mg, By Mouth, 2 times a day, 0 Refills, Maintenance, 03/08/21 18:30:00 EDT, Partial fill upon patient request if the prescription is for a schedule II opioid drug. Start Date: 03/08/21 Status: OrderedIntuniv 2 mg oral tablet, extended release 2 tablet = 4 mg, By Mouth, Daily at bedtime, 4 mg total, 0 Refills, Maintenance, 06/09/20 23:52:00 EDT Start Date: 06/09/20 Status: Orderedmelatonin 3 mg oral tablet 1 tablet = 3 mg, By Mouth, Daily at bedtime, PRN for insomnia, # 60 tablet, 0 Refills, Maintenance, 04/13/19 10:11:53 EDT, Tablet Start Date: 04/13/19 Status: OrderedMisc Rx chlorhexadine cream, Topically, Refills 0, Maintenance, 03/08/21 18:28:00 EDT, Supply Start Date: 03/08/21 Status: OrderedOmega-3 oral capsule 0 Refills, Maintenance, 04/09/19 9:14:48 EDT Start Date: 04/09/19 Status: OrderedSEROquel 50 mg oral tablet 1 tablet = 50 mg, By Mouth, Daily, PRN Agitation, 1600, # 30 tablet, 0 Refills, Maintenance, 04/13/19 10:12:35 EDT, Tablet Start Date: 04/13/19 Status: OrderedSEROquel XR 300 mg oral tablet, extended release 2 tablet = 600 mg, By Mouth, Daily at bedtime, Med list says 500mg at bedtime, # 60 tablet, 0 Refills, Maintenance, 04/13/19 10:14:46 EDT, ER Tablet Start Date: 04/13/19 Status: Ordered Problem List Condition Effective Dates Status Health Status Informant 46,XXYY aneuploidy(Confirmed) 05/01/13 Active Intellectual disability(Confirmed) 05/01/13 Active 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 FINDINGS: LINES AND TUBES: None. LUNGS AND PLEURA: Low lung volumes with mild basilar atelectasis. Lungs are otherwise clear with no consolidation. No pleural effusion. No pneumothorax. HEART, MEDIASTINUM AND SAMUEL: Heart is normal in size. Normal upper mediastinal and hilar contour. BONES AND SOFT TISSUES: No acute abnormality. IMPRESSION: No acute abnormality. WSN: [id number] Ordering Physician: Shayla Rivera Dictated By: Cony Wilkins MD Dictated Date/Time: 07/27/22 5:09 pm Reviewed By: Cony Wilkins MD Signed By: Cony Wilkins MD Signed Date/Time: 07/27/22 5:09 pm Transcribed By: KYRA Transcribed Date/Time: 07/27/22 5:08 pm Vital Signs Most recent to oldest 1 2 3 [Reference Range]: Oxygen Saturation [94-100 %] 96 % 97 % 96 % (07/27/22 5:05 PM) (07/27/22 3:35 PM) (07/27/22 2:1 8 PM) Pulse Rate [55-90 bpm] 83 bpm 80 bpm 88 bpm (07/27/22 5:05 PM) (07/27/22 3:35 PM) (07/27/22 2:1 8 PM) Blood Pressure [90-138/55-84 mm 119/78 mm Hg 121/81 mm Hg 126/72 mm Hg Hg] (07/27/22 5:05 PM) (07/27/22 3:35 PM) (07/27/22 2:1 8 PM) Respiratory Rate [16-30 br/min] 18 br/min 17 br/min 18 br/min (07/27/22 5:05 PM) (07/27/22 3:35 PM) (07/27/22 2:1 8 PM) Temperature [96.8-100.4 DegF] 98.7 DegF 98.9 DegF 99 .7 DegF (07/27/22 5:05 PM) (07/27/22 3:35 PM) (07/27/22 2:1 8 PM) Mode of Delivery (Oxygen) Room air Room air Room a ir (07/27/22 5:05 PM) (07/27/22 3:35 PM) (07/27/22 2:1 8 PM) Blood pressure sites Arm, left Arm, left Arm, left (07/27/22 5:05 PM) (07/27/22 3:35 PM) (07/27/22 2:1 8 PM) Temperature Route Oral Oral Oral (07/27/22 5:05 PM) (07/27/22 3:35 PM) (07/27/22 2:1 8 PM) Social History Social History Type Response Smoking Status 10 or more cigarettes (1/2 p ack or more)/day in last 30 days entered on: 08/05/19 Sex Note BHSPowerscribe , CIS S: TRANSCRIBE Cony Wilkins MD: VERIFY Event Display: Result: Authored Date: [id number] Chest 2 Views Frontal and Lat Hx of Present Illness: chest pain back pain; Reason: Angina; Clinical Question(s): Pneumonia COMPARISON: 07/09/2022. FINDINGS: LINES AND TUBES: None. LUNGS AND PLEURA: Low lung volumes with mild basilar atelectasis. Lungs are otherwise clear with no consolidation. No pleural effusion. No pneumothorax. HEART, MEDIASTINUM AND SAMUEL: Heart is normal in size. Normal upper mediastinal and hilar contour. BONES AND SOFT TISSUES: No acute abnormality. IMPRESSION: No acute abnormality. WSN: [id number] Ordering Physician: Shayla Rivera Dictated By: Cony Wilkins MD Dictated Date/Time: 07/27/22 5:09 pm Reviewed By: Cony Wilkins MD Signed By: Cony Wilkins MD Signed Date/Time: 07/27/22 5:09 pm Transcribed By: KYRA Transcribed Date/Time: 07/27/22 5:08 pm Care Team PersonnelName: Alf Traylor MD Address: [address] [place] [address] [facility] [address]
--- OUTSIDE RECORDS SUMMARY | 2022-10-08 20:23 | XMS_ITS | Continuity of Care Document ---
:1998 Author Organization [facility] Address [address] [place] [id number]- Care Team Providers Name Role Phone Kymberly FLORES, Alf Fitzgerald Primary Care Physician Encounter [facility] Date(s): 03/23/20 - 03/23/[address] [address]- [facility] Discharge Disposition: A-D/C Home Attending Physician: Vidal Barraza MD Admitting Physician: Vidal Barraza MD Referring Physician: Not on Staff, Referring [...] Active Disorder(Confirmed) Mood disorder NOS(Confirmed) 04/25/13 Active Vital Signs Most recent to oldest [Reference Range]: 1 Height 196 cm (03/23/20 2:18 PM) Weight 151.0 kg (03/23/20 2:18 PM) Oxygen Saturation [94-100 %] 97 % (03/23/20 2:18 PM) Pulse Rate [55-90 bpm] 100 bpm *H* (03/23/20 2:18 PM) Blood Pressure [90-138/55-84 mm Hg] 147/97 mm Hg *H* (03/23/20 2:18 PM) Respiratory Rate [16-30 br/min] 16 br/min (03/23/20 2:18 PM) Temperature [96.8-100.4 DegF] 97.5 DegF (03/23/20 2:18 PM) Mode of Delivery (Oxygen) Room air (03/23/20 2:18 PM) Blood pressure sites Arm, left (03/23/20 2:18 PM) Temperature Route Temporal (03/23/20 2:18 PM) Dry Weight 151.0 kg (03/23/20 2:18 PM) Social History Social History Type Response Smoking Status 10 or more cigarettes (1/2 p ack or more)/day in last 30 days entered on: 08/05/19 Sex
--- OUTSIDE RECORDS SUMMARY | 2022-10-08 20:23 | XMS_ITS | Continuity of Care Document ---
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 Discharge Disposition: A-D/C Home Attending Physician: Corey Ruiz MD Admitting Physician: Corey Ruiz MD Referring Physician: Not on Staff, Referring MD Allergies, Adverse Reactions, Alerts Substance Reaction Severity Status Ritalin Active Haldol Severe Dystonia Persistent Severe Active Medications clindamycin 1% topical gel 1 application, Topically, 2 times a day, # 30 Gm, 0 Refills, Maintenance, 10/29/19 13:27:42 EST, Gel Start Date: 10/29/19 Status: OrderedIntuniv 2 mg oral tablet, extended release 1 tablet = 2 mg, By Mouth, Daily at bedtime, 0 Refills, Maintenance, 06/09/20 23:52:00 EDT Start [...] Range]: 1 2 Oxygen Saturation [94-100 %] 100 % 100 % (02/03/21 8:43 PM) (02/03/21 8:13 PM) Pulse Rate [55-90 bpm] 128 bpm 134 bpm *H* *H* (02/03/21 8:43 PM) (02/03/21 8:13 PM) Blood Pressure [90-138/55-84 mm Hg] 146/74 mm Hg 144/ 92 mm Hg *H* *H* (02/03/21 8:43 PM) (02/03/21 8:13 PM) Respiratory Rate [16-30 br/min] 20 br/min 20 br/mi n (02/03/21 8:43 PM) (02/03/21 8:13 PM) Temperature [96.8-100.4 DegF] 98.8 DegF (02/03/21 8:13 PM) Mode of Delivery (Oxygen) Room air Room air (02/03/21 8:43 PM) (02/03/21 8:13 PM) Blood pressure sites Arm, left Arm, left (02/03/21 8:43 PM) (02/03/21 8:13 PM) Temperature Route Oral (02/03/21 8:13 PM) Social History Social History Type Response Smoking Status 10 or more cigarettes (1/2 p ack or more)/day in last 30 days entered on: 08/05/19 Sex
--- OUTSIDE RECORDS SUMMARY | 2022-10-08 20:23 | XMS_ITS | Continuity of Care Document ---
:1998 Author Organization [facility] Address [address] [place] [id number]- Care Team Providers Name Role Phone Kymberly FLORES, Alf Fitzgerald Primary Care Physician [place] [facility] [place] Date(s): 07/31/21 - 08/01/[address] [address]- Encounter Diagnosis Agitation (Final) - 07/31/21 Discharge Disposition: A-D/C Home Attending Physician: Nia Matta MD Admitting Physician: Nia Matta MD Referring Physician: Not on Staff, Referring [...] Vital Signs Most recent to oldest [Reference 1 2 3 Range]: Oxygen Saturation [94-100 %] 100 % 98 % 98 % (08/01/21 8:53 PM) (08/01/21 5:54 AM) (08/01/21 3:43 A M) Pulse Rate [55-90 bpm] 88 bpm 98 bpm 100 bpm (08/01/21 8:53 PM) *H* *H* (08/01/21 5:54 AM) (08/01/21 3:43 AM ) Blood Pressure [90-138/55-84 mm 138/86 mm Hg 112/68 mm Hg 118/66 mm Hg Hg] (08/01/21 8:53 PM) (08/01/21 5:54 AM) (08/01/21 3:43 A M) Respiratory Rate [16-30 br/min] 18 br/min 18 br/min 16 br/min (08/01/21 8:53 PM) (08/01/21 5:54 AM) (08/01/21 3:43 A M) Temperature [96.8-100.4 DegF] 98.5 DegF 98.6 DegF 98 .4 DegF (08/01/21 8:53 PM) (08/01/21 5:54 AM) (08/01/21 3:43 A M) Mode of Delivery (Oxygen) Room air Room air Room a ir (08/01/21 8:53 PM) (08/01/21 5:54 AM) (08/01/21 3:43 A M) Blood pressure sites Arm, left Arm, left Arm, left (08/01/21 5:54 AM) (08/01/21 3:43 AM) (08/01/21 2:02 A M) Temperature Route Oral Oral Oral (08/01/21 8:53 PM) (08/01/21 5:54 AM) (08/01/21 3:43 A M) Social History Social History Type Response Smoking Status 10 or more cigarettes (1/2 p ack or more)/day in last 30 days entered on: 08/05/19 Sex
--- OUTSIDE RECORDS SUMMARY | 2022-10-08 20:23 | XMS_ITS | Continuity of Care Document ---
:1998 Author Organization [facility] Address [address] [place] [address]- Care Team Providers Name Role Phone Alf Traylor MD Primary Care Physician Encounter [facility] Date(s): 03/08/21 - 03/10/[address] [address]- Discharge Disposition: Transfer to [facility] Facility Attending Physician: Jeff Buchanan MD Admitting Physician: Jeff Buchanan MD Referring Physician: Not on Staff, Referring [...] Active Vital Signs Most recent to oldest 1 2 3 [Reference Range]: Height 196 cm 196 cm 196 cm (03/09/21 2:53 AM) (03/08/21 6:46 PM) (03/08/21 1:5 3 PM) Weight 162 kg 162 kg 162 kg (03/09/21 2:53 AM) (03/08/21 6:46 PM) (03/08/21 1:5 3 PM) Oxygen Saturation [94-100 97 % 97 % 97 % %] (03/10/21 2:00 PM) (03/10/21 8:00 AM) (03/09/21 11: 55 PM) Pulse Rate [55-90 bpm] 77 bpm 94 bpm 89 bpm (03/10/21 2:00 PM) *H* (03/09/21 11:55 PM) (03/10/21 8:00 AM) Body Mass Index 42.17 42.17 [18.5-24.99] *>HHI* *>HHI* (03/09/21 2:53 AM) (03/08/21 6:46 PM) Blood Pressure 131/74 mm Hg 108/62 mm Hg 112/72 mm Hg [90-138/55-84 mm Hg] (03/10/21 2:00 PM) (03/10/21 8:00 AM) ( 11:55 PM) Respiratory Rate [16-30 18 br/min 16 br/min 18 br/mi n br/min] (03/09/21 11:55 PM) (03/09/21 2:53 AM) (03/08/21 6: 46 PM) Temperature [96.8-100.4 98.3 DegF DegF] (03/08/21 1:53 PM) Mode of Delivery (Oxygen) Room air Room air Room a ir (03/10/21 2:00 PM) (03/10/21 8:00 AM) (03/09/21 11: 55 PM) Blood pressure sites Arm, left Arm, left Arm, right (03/09/21 11:55 PM) (03/09/21 7:19 PM) (03/09/21 2: 00 PM) Temperature Route Oral (03/08/21 1:53 PM) Dry Weight 162 kg 162 kg 162 kg (03/09/21 2:53 AM) (03/08/21 6:46 PM) (03/08/21 1:5 3 PM) Weight Obtained Via Patient/family stated (03/08/21 1:53 PM) Dry Weight Obtained Via Patient/family stated (03/08/21 1:53 PM) Social History Social History Type Response Smoking Status 10 or more cigarettes (1/2 p ack or more)/day in last 30 days entered on: 08/05/19 Sex
--- OUTSIDE RECORDS SUMMARY | 2022-10-08 20:23 | XMS_ITS | Continuity of Care Document ---
:1998 Author Organization [facility] Address [address] [place] [address]- Care Team Providers Name Role Phone Kymberly FLORES, Alf Fitzgerald Primary Care Physician Encounter [facility] [place] Date(s): 07/12/22 - 07/12/[address] [address]- Encounter Diagnosis Agitated (Final) - 07/12/22 Agitated (Final) - 07/12/22 Discharge Disposition: A-D/C Home Attending Physician: Cristian Morelos MD Admitting Physician: Cristian Morelos MD Referring Physician: Not on Staff, Referring [...] Range]: 1 2 Oxygen Saturation [94-100 %] 97 % 97 % (07/12/22 9:53 PM) (07/12/22 4:23 PM) Pulse Rate [55-90 bpm] 85 bpm 87 bpm (07/12/22 9:53 PM) (07/12/22 4:23 PM) Blood Pressure [90-138/55-84 mm Hg] 119/72 mm Hg 121/ 76 mm Hg (07/12/22 9:53 PM) (07/12/22 4:23 PM) Respiratory Rate [16-30 br/min] 18 br/min 17 br/mi n (07/12/22 9:53 PM) (07/12/22 4:23 PM) Temperature [96.8-100.4 DegF] 98.3 DegF (07/12/22 4:23 PM) Mode of Delivery (Oxygen) Room air Room air (07/12/22 9:53 PM) (07/12/22 4:23 PM) Temperature Route Oral (07/12/22 4:23 PM) Social History Social History Type Response Smoking Status 10 or more cigarettes (1/2 p ack or more)/day in last 30 days entered on: 08/05/19 Sex
--- OUTSIDE RECORDS SUMMARY | 2022-10-08 20:23 | XMS_ITS | Continuity of Care Document ---
:1998 Author Organization [facility] Address [address] [place] [address]- Care Team Providers Name Role Phone Kymberly FLORES, Alf Fitzgerald Primary Care Physician [place] [facility] [place] 06/26/[place] - 06/26/[address] [address]- Encounter Diagnosis Fall (Final) - 06/26/21 Discharge Disposition: A-D/C Home Attending Physician: Elin Harrison MD Admitting Physician: Elin Harrison MD Referring Physician: Not on Staff, Referring [...] Exam Date Time Procedure Performing Provider Status 06/26/21 8:32 PM Chest Portable Rebeca Manuel; Auth (Verified) Notes:(Chest Portable) Reason For Exam: Shortness of BreathRESULT: Chest Portable Chest Portable Reason: Shortness of Breath; Clinical Question(s): CHF COMPARISON: None. FINDINGS: LINES AND TUBES: None. LUNGS AND PLEURA: Prominent vascular markings likely accentuated by low lung volumes. No pleural effusion or pneumothorax. HEART, MEDIASTINUM AND SAMUEL: Heart is normal in size. Normal upper mediastinal and hilar contour. BONES AND SOFT TISSUES: No acute abnormality. IMPRESSION: Prominent vascular markings likely accentuated by low lung volumes. WSN: [id number] Ordering Physician: Deondre Gordon V Dictated By: Chintan Neri MD Dictated Date/Time: 06/26/21 8:35 pm Reviewed By: Chintan Neri MD Signed By: Chintan Neri MD Signed Date/Time: 06/26/21 8:35 pm Transcribed By: KYRA Transcribed Date/Time: 06/26/21 8:33 pm Vital Signs Most recent to oldest [Reference Range]: 1 Oxygen Saturation [94-100 %] 100 % (06/26/21 8:18 PM) Pulse Rate [55-90 bpm] 77 bpm (06/26/21 8:18 PM) Blood Pressure [90-138/55-84 mm Hg] 111/69 mm Hg (06/26/21 8:18 PM) Respiratory Rate [16-30 br/min] 19 br/min (06/26/21 8:18 PM) Temperature [96.8-100.4 DegF] 98.3 DegF (06/26/21 8:18 PM) Mode of Delivery (Oxygen) Room air (06/26/21 8:18 PM) Blood pressure sites Arm, right (06/26/21 8:18 PM) Temperature Route Oral (06/26/21 8:18 PM) Social History Social History Type Response Smoking Status 10 or more cigarettes (1/2 p ack or more)/day in last 30 days entered on: 08/05/19 Sex
--- OUTSIDE RECORDS SUMMARY | 2022-10-08 20:23 | XMS_ITS | Continuity of Care Document ---
:1998 Author Organization [facility] Address [address] [place] [address]- Care Team Providers Name Role Phone Kymberly FLORES, Alf Fitzgerald Primary Care Physician [place] [facility] [place] [place] [id number] Date(s): 07/29/22 - 07/29/[address] [address]- Encounter Diagnosis Agitation (Final) - 07/29/22 Discharge Disposition: A-D/C Home Attending Physician: Deja Kauffman MD Admitting Physician: Deja Kauffman MD Referring Physician: Not on Staff, Referring [...] 2 3 Range]: Oxygen Saturation [94-100 %] 98 % 97 % 98 % (07/29/22 9:22 PM) (07/29/22 6:16 PM) (07/29/22 3:46 P M) Pulse Rate [55-90 bpm] 80 bpm 90 bpm 97 bpm (07/29/22 9:22 PM) (07/29/22 6:16 PM) *H* (07/29/22 3:46 PM) Blood Pressure [90-138/55-84 mm 130/68 mm Hg 129/79 mm Hg 138/75 mm Hg Hg] (07/29/22 9:22 PM) (07/29/22 6:16 PM) (07/29/22 3:46 P M) Respiratory Rate [16-30 br/min] 18 br/min 20 br/min 22 br/min (07/29/22 9:22 PM) (07/29/22 6:16 PM) (07/29/22 3:46 P M) Temperature [96.8-100.4 DegF] 98.3 DegF 99.1 DegF (07/29/22 6:16 PM) (07/29/22 3:46 PM) Mode of Delivery (Oxygen) Room air Room air (07/29/22 6:16 PM) (07/29/22 3:46 PM) Blood pressure sites Arm, right Arm, left (07/29/22 6:16 PM) (07/29/22 3:46 PM) Temperature Route Oral Oral (07/29/22 6:16 PM) (07/29/22 3:46 PM) Social History Social History Type Response Smoking Status 10 or more cigarettes (1/2 p ack or more)/day in last 30 days entered on: 08/05/19 Sex Care Team PersonnelName: Alf Traylor MD Address: [address] [place] [address] [facility] [place], [place] [address]
--- OUTSIDE RECORDS SUMMARY | 2022-10-08 20:23 | XMS_ITS | Continuity of Care Document ---
:1998 Author Organization [facility] Address [address] [place] [address]- Care Team Providers Name Role Phone Alf Traylor MD Primary Care Physician En[place] [facility] [place] [id number] Date(s): 07/19/21 - 07/19/[address] [address]- Discharge Disposition: A-D/C Walkout Attending Physician: Not on Staff, Attending MD Admitting Physician: Not on Staff, Admitting MD Referring Physician: Not on Staff, Referring [...] [Reference Range]: 1 Oxygen Saturation [94-100 %] 97 % (07/19/21 1:26 PM) Pulse Rate [55-90 bpm] 87 bpm (07/19/21 1:26 PM) Blood Pressure [90-138/55-84 mm Hg] 139/79 mm Hg *H* (07/19/21 1:26 PM) Respiratory Rate [16-30 br/min] 16 br/min (07/19/21 1:26 PM) Temperature [96.8-100.4 DegF] 98.5 DegF (07/19/21 1:26 PM) Mode of Delivery (Oxygen) Room air (07/19/21 1:26 PM) Blood pressure sites Arm, left (07/19/21 1:26 PM) Temperature Route Oral (07/19/21 1:26 PM) Social History Social History Type Response Smoking Status 10 or more cigarettes (1/2 p ack or more)/day in last 30 days entered on: 08/05/19 Sex
--- OUTSIDE RECORDS SUMMARY | 2022-10-08 20:23 | XMS_ITS | Continuity of Care Document ---
:1998 Author Organization [facility] Address [address] [place] [phone]- Care Team Providers Name Role Phone Kymberly FLORES, Alf Fitzgerald Primary Care Physician Encounter [facility] [place] Date(s): 07/09/22 - 07/10/[address] [address]- Encounter Diagnosis Agitation (Final) - 07/09/22 Discharge Disposition: A-D/C Home Attending Physician: Andrea Garcia MD Admitting Physician: Andrea Garcia MD Referring Physician: Not on Staff, Referring [...] Exam Date Time Procedure Performing Provider Status 07/09/22 3:51 PM Chest Portable Amie Crook; Rojas (Timmy patton) Notes:(Chest Portable) Reason For Exam: Shortness of BreathRESULT: Chest Portable Chest Portable Hx of Present Illness: Arrived by EMS who reports pt stated feeling unsafe at facility. Per EMS SIand HI. Pt also experienced on seizure per EMT's during transport lasting about 1 min. postictal 2-3min.; Reason: Shortness of Breath; Clinical Question(s): CHF COMPARISON: 06/26/2020 FINDINGS: LINES AND TUBES: None. LUNGS AND PLEURA: Low lung volumes. Mild bibasilar atelectasis. Normal pulmonary vascularity. No pleural effusion. No pneumothorax. HEART, MEDIASTINUM AND SAMUEL: Heart is normal in size. Normal upper mediastinal and hilar contour. BONES AND SOFT TISSUES: No acute abnormality. IMPRESSION: Low lung volumes with mild bibasilar atelectasis. WSN: [id number] Ordering Physician: Fanta Arellano Dictated By: Cony Wilkins MD Dictated Date/Time: 07/09/22 3:58 pm Reviewed By: Cony Wilkins MD Signed By: Cony Wilkins MD Signed Date/Time: 07/09/22 3:58 pm Transcribed By: KYRA Transcribed Date/Time: 07/09/22 3:57 pm Vital Signs Most recent to oldest 1 2 3 [Reference Range]: Weight 162 kg (07/10/22 6:35 PM) Oxygen Saturation [94-100 %] 93 % 93 % 94 % *L* *L* (07/10/22 6:35 PM ) (07/10/22 10:30 PM) (07/10/22 8:26 PM) Pulse Rate [55-90 bpm] 100 bpm 103 bpm 102 bpm *H* *H* *H* (07/10/22 10:30 PM) (07/10/22 8:26 PM) (07/10/22 6: 35 PM) Blood Pressure [90-138/55-84 122/69 mm Hg 116/53 mm Hg 114 /85 mm Hg mm Hg] (07/10/22 10:30 PM) (07/10/22 8:26 PM) (07/10/22 6: 35 PM) Respiratory Rate [16-30 16 br/min 16 br/min 17 br/mi n br/min] (07/10/22 10:30 PM) (07/10/22 8:26 PM) (07/10/22 6: 35 PM) Temperature [96.8-100.4 DegF] 98.4 DegF 98.5 DegF 98 .2 DegF (07/10/22 6:35 PM) (07/10/22 3:00 PM) (07/10/22 6:3 6 AM) Mode of Delivery (Oxygen) Room air Room air Room a ir (07/10/22 10:30 PM) (07/10/22 8:26 PM) (07/10/22 6: 35 PM) Blood pressure sites Arm, right Arm, left Arm, left (07/10/22 6:35 PM) (07/10/22 3:00 PM) (07/10/22 1:2 4 PM) Temperature Route Oral Oral Oral (07/10/22 6:35 PM) (07/10/22 3:00 PM) (07/10/22 6:3 6 AM) Social History Social History Type Response Smoking Status 10 or more cigarettes (1/2 p ack or more)/day in last 30 days entered on: 08/05/19 Sex
--- OUTSIDE RECORDS SUMMARY | 2022-10-08 20:23 | XMS_ITS | Continuity of Care Document ---
:1998 Author Organization [facility] Address [address] [place] [address]- Care Team Providers Name Role Phone Kymberly FLORES, Alf Fitzgerald Primary Care Physician Encounter [facility] [place] Date(s): 09/10/22 - 09/11/[address] [address]- Encounter Diagnosis Aggressive behavior (Final) - 09/10/22 Hand pain (Final) - 09/10/22 Discharge Disposition: A-D/C Home Attending Physician: Kaitlynn Burns MD Admitting Physician: Kaitlynn Burns MD Referring Physician: Not on Staff, Referring [...] Disorder Mood disorder NOS Confirmed 04/25/13 Active Results Radiology Reports Exam Date Time Procedure Performing Provider Status 09/10/22 3:43 PM Hand Min 3 Views Left Manisha Ghosh; Auth (Azra ified) Notes:(Hand Min 3 Views Left) Reason For Exam: PainRESULT: Hand Min 3 Views Left Hand Min 3 Views Left, 3 views Hx of Present Illness: Pain. COMPARISON: 08/19/2022 FINDINGS: No fractures or bone lesions. No arthritic changes. Normal soft tissues. IMPRESSION: No fracture or malalignment. WSN: [id number] Ordering Physician: Christine Granados Dictated By: Feliciano Disla MD Dictated Date/Time: 09/10/22 3:48 pm Reviewed By: Feliciano Disla MD Signed By: Feliciano Disla MD Signed Date/Time: 09/10/22 3:48 pm Transcribed By: KYRA Transcribed Date/Time: 09/10/22 3:47 pm Vital Signs Most recent to oldest 1 2 3 [Reference Range]: Oxygen Saturation [94-100 %] 99 % 98 % 96 % (09/11/22 6:42 AM) (09/10/22 8:00 PM) (09/10/22 1:11 PM) Pulse Rate [55-90 bpm] 87 bpm 96 bpm 103 bpm (09/11/22 6:42 AM) *H* *H* (09/10/22 8:00 PM) (09/10/22 1:1 1 PM) Blood Pressure [90-138/55-84 99/60 mm Hg 122/82 mm Hg 112 /61 mm Hg mm Hg] (09/11/22 6:42 AM) (09/10/22 8:00 PM) (09/10/22 1:11 PM) Respiratory Rate [16-30 16 br/min 16 br/min 18 br/mi n br/min] (09/11/22 6:42 AM) (09/10/22 8:00 PM) (09/10/22 1:11 PM) Temperature [96.8-100.4 97.5 DegF 99 DegF 98.6 Deg F DegF] (09/11/22 6:42 AM) (09/10/22 8:00 PM) (09/10/22 1:11 PM) Mode of Delivery (Oxygen) Room air Room air Room a ir (09/11/22 6:42 AM) (09/10/22 8:00 PM) (09/10/22 1:11 PM) Blood pressure sites Arm, right Leg, left Arm, left (09/11/22 6:42 AM) (09/10/22 8:00 PM) (09/10/22 1:11 PM) Temperature Route Oral Oral Oral (09/11/22 6:42 AM) (09/10/22 8:00 PM) (09/10/22 1:11 PM) Social History Social History Type Response Smoking Status 10 or more cigarettes (1/2 p ack or more)/day in last 30 days entered on: 08/05/19 Sex XR Hand - left GE 3 Views BHSPowerscribe , CIS S: TRANSCRIBE Feliciano Disla MD: VERIFY Event Display: Result: Authored Date: [id number] Hand Min 3 Views Left, 3 views Hx of Present Illness: Pain. COMPARISON: 08/19/2022 FINDINGS: No fractures or bone lesions. No arthritic changes. Normal soft tissues. IMPRESSION: No fracture or malalignment. WSN: [id number] Ordering Physician: Christine Granados Dictated By: Feliciano Disla MD Dictated Date/Time: 09/10/22 3:48 pm Reviewed By: Feliciano Disla MD Signed By: Feliciano Disla MD Signed Date/Time: 09/10/22 3:48 pm Transcribed By: KYRA Transcribed Date/Time: 09/10/22 3:47 pm Patient Care team information PersonnelName: Alf Traylor MD Address: Address: [address] [place] [address] [facility] [address]
--- OUTSIDE RECORDS SUMMARY | 2022-10-08 20:23 | XMS_ITS | Continuity of Care Document ---
:1998 Author Organization [facility] Address [address] [place] [address]- Care Team Providers Name Role Phone Kymberly FLORES, Alf Fitzgerald Primary Care Physician Encounter [place] Date(s): 12/14/19 - 12/21/[address] [address]- [facility] Attending Physician: Marybeth BURRIS, Pia Allergies, Adverse Reactions, Alerts Substance Reaction Severity [...] Active Disorder(Confirmed) Mood disorder NOS(Confirmed) 04/25/13 Active Social History Social History Type Response Smoking Status 10 or more cigarettes (1/2 p ack or more)/day in last 30 days entered on: 08/05/19 Sex
--- OUTSIDE RECORDS SUMMARY | 2022-10-08 20:23 | XMS_ITS | Continuity of Care Document ---
:1998 Author Organization [facility] Address [address] [place] [address]- Care Team Providers Name Role Phone Kymberly FLORES, Alf Fitzgerald Primary Care Physician Encounter [facility] Date(s): 06/09/20 - 06/10/[address] [address]- [facility] Discharge Disposition: A-D/C Home Attending Physician: Matt Bragg MD Admitting Physician: Matt Bragg MD Referring Physician: Not on Staff, Referring [...] oldest [Reference Range]: 1 Height 196 cm (06/09/20 11:44 PM) Weight 152.5 kg (06/09/20 11:44 PM) Oxygen Saturation [94-100 %] 99 % (06/09/20 11:44 PM) Pulse Rate [55-90 bpm] 95 bpm *H* (06/09/20 11:44 PM) Blood Pressure [90-138/55-84 mm Hg] 121/86 mm Hg (06/09/20 11:44 PM) Respiratory Rate [16-30 br/min] 16 br/min (06/09/20 11:44 PM) Temperature [96.8-100.4 DegF] 99.2 DegF (06/09/20 11:44 PM) Mode of Delivery (Oxygen) Room air (06/09/20 11:44 PM) Blood pressure sites Arm, right (06/09/20 11:44 PM) Temperature Route Temporal (06/09/20 11:44 PM) Dry Weight 152.5 kg (06/09/20 11:44 PM) Weight Obtained Via Standing scale (06/09/20 11:44 PM) Dry Weight Obtained Via Standing scale (06/09/20 11:44 PM) Social History Social History Type Response Smoking Status 10 or more cigarettes (1/2 p ack or more)/day in last 30 days entered on: 08/05/19 Sex
--- OUTSIDE RECORDS SUMMARY | 2022-10-08 20:24 | XMS_ITS | Continuity of Care Document ---
:1998 Author Organization [facility] Address [address] [place] [address]- Care Team Providers Name Role Phone Alf Traylor MD Primary Care Physician Encounter [facility] [place] Date(s): 08/19/22 - 08/19/[address] [address]- Encounter Diagnosis Neck pain (Final) - 08/19/22 Head pain (Final) - 08/19/22 Back pain (Final) - 08/19/22 Discharge Disposition: A-D/C Home Attending Physician: Kaitlynn [...] Exam Date Time Procedure Performing Provider Status 08/19/22 3:34 PM Lumbar Spine 2 or 3 Views Manisha Ghosh; Auth ( Verified) Notes:(Lumbar Spine 2 or 3 Views) Reason For Exam: with Pain;TraumaRESULT: Lumbar Spine 2 or 3 Views Lumbar Spine 2 or 3 Views Reason: Trauma; with Pain; Clinical Question(s): Fracture Dislocation COMPARISON: None. FINDINGS: No evidence of fracture or subluxation. No significant degenerative change IMPRESSION: No evidence of fracture, subluxation or significant degenerative change WSN: [id number] Ordering Physician: Darlin Hardin Dictated By: Rohit Patrick MD Dictated Date/Time: 08/19/22 3:43 pm Reviewed By: Rohit Patrick MD Signed By: Rohit Patrick MD Signed Date/Time: 08/19/22 3:43 pm Transcribed By: KYRA Transcribed Date/Time: 08/19/22 3:42 pm Exam Date Time Procedure Performing Provider Status 08/19/22 3:34 PM Cervical Spine 3 Views or Less Manisha Ghosh; Rajat [facility] (Verified) Notes:(Cervical Spine 3 Views or Less) Reason For Exam: with Pain;TraumaRESULT: Cervical Spine 3 Views or Less Cervical Spine 3 Views or Less Reason: Trauma; with Pain; Clinical Question(s): Fracture Dislocation COMPARISON: Cervical spine CT 08/09/2014 FINDINGS: Very limited exam with the cervical spine evaluated to approximately the C4 level on the lateral view. Within this limitation there is no evidence of fracture, subluxation or significant degenerative change. IMPRESSION: Very limited exam with cervical spine evaluated approximately C4 on the lateral view. Within this limitation there is no evidence of fracture, subluxation or significant degenerative change WSN: [id number] Ordering Physician: Darlin Hardin Dictated By: Rohit Patrick MD Dictated Date/Time: 08/19/22 3:42 pm Reviewed By: Rohit Patrick MD Signed By: Rohit Patrick MD Signed Date/Time: 08/19/22 3:42 pm Transcribed By: KYRA Transcribed Date/Time: 08/19/22 3:40 pm Exam Date Time Procedure Performing Provider Status 08/19/22 3:34 PM Hand Min 3 Views Left BeManisha smith; Auth (Veri fied) Notes:(Hand Min 3 Views Left) Reason For Exam: with Pain;TraumaRESULT: Hand Min 3 Views Left Hand Min 3 Views Left, 3 views Reason: Trauma; with Pain; Clinical Question(s): Fracture COMPARISON: 10/29/2019 FINDINGS: Limited lateral view. Within this location, no evidence of fracture or dislocation. No change from the previous exam IMPRESSION: No evidence of fracture or dislocation with limited lateral view WSN: [id number] Ordering Physician: Willie Bright Dictated By: Rohit Patrick MD Dictated Date/Time: 08/19/22 3:37 pm Reviewed By: Rohit Patrick MD Signed By: Rohit Patrick MD Signed Date/Time: 08/19/22 3:37 pm Transcribed By: KYRA Transcribed Date/Time: 08/19/22 3:35 pm Vital Signs Most recent to oldest [Reference Range]: 1 2 Oxygen Saturation [94-100 %] 97 % 97 % (08/19/22 4:27 PM) (08/19/22 12:31 PM) Pulse Rate [55-90 bpm] 75 bpm 83 bpm (08/19/22 4:27 PM) (08/19/22 12:31 PM) Blood Pressure [90-138/55-84 mm Hg] 135/74 mm Hg 130/ 71 mm Hg (08/19/22 4:27 PM) (08/19/22 12:31 PM) Respiratory Rate [16-30 br/min] 16 br/min 16 br/mi n (08/19/22 4:27 PM) (08/19/22 12:31 PM) Temperature [96.8-100.4 DegF] 97.7 DegF 97.8 DegF (08/19/22 4:27 PM) (08/19/22 12:31 PM) Mode of Delivery (Oxygen) Room air Room air (08/19/22 4:27 PM) (08/19/22 12:31 PM) Temperature Route Oral Oral (08/19/22 4:27 PM) (08/19/22 12:31 PM) Social History Social History Type Response Smoking Status 10 or more cigarettes (1/2 p ack or more)/day in last 30 days entered on: 08/05/19 Sex Note BHSPowerscribe , CIS S: TRANSCRIBE Rohit Patrick MD: VERIFY Event Display: Result: Authored Date: [id number] Hand Min 3 Views Left, 3 views Reason: Trauma; with Pain; Clinical Question(s): Fracture COMPARISON: 10/29/2019 FINDINGS: Limited lateral view. Within this location, no evidence of fracture or dislocation. No change from the previous exam IMPRESSION: No evidence of fracture or dislocation with limited lateral view WSN: [id number] Ordering Physician: Willie Bright Dictated By: Rohit Patrick MD Dictated Date/Time: 08/19/22 3:37 pm Reviewed By: Rohit Patrick MD Signed By: Rohit Patrick MD Signed Date/Time: 08/19/22 3:37 pm Transcribed By: KYRA Transcribed Date/Time: 08/19/22 3:35 pmBHSPFRED weller S: TRANSCRIRohit Juares MD: VERIFY Event Display: Result: Authored Date: [id number] Cervical Spine 3 Views or Less Reason: Trauma; with Pain; Clinical Question(s): Fracture Dislocation COMPARISON: Cervical spine CT 08/09/2014 FINDINGS: Very limited exam with the cervical spine evaluated to approximately the C4 level on the lateral view. Within this limitation there is no evidence of fracture, subluxation or significant degenerative change. IMPRESSION: Very limited exam with cervical spine evaluated approximately C4 on the lateral view. Within this limitation there is no evidence of fracture, subluxation or significant degenerative change WSN: [id number] Ordering Physician: Darlin Hardin Dictated By: Rohit Patrick MD Dictated Date/Time: 08/19/22 3:42 pm Reviewed By: Rohit Patrick MD Signed By: Rohit Patrick MD Signed Date/Time: 08/19/22 3:42 pm Transcribed By: KYRA Transcribed Date/Time: 08/19/22 3:40 pm XR Lumbar spine 2 or 3 Views BHFRED Vines S: TRANSCRIRohit Juares MD: VERIFY Event Display: Result: Authored Date: [id number] Lumbar Spine 2 or 3 Views Reason: Trauma; with Pain; Clinical Question(s): Fracture Dislocation COMPARISON: None. FINDINGS: No evidence of fracture or subluxation. No significant degenerative change IMPRESSION: No evidence of fracture, subluxation or significant degenerative change WSN: [id number] Ordering Physician: Darlin Hardin Dictated By: Rohit Patrick MD Dictated Date/Time: 08/19/22 3:43 pm Reviewed By: Rohit Patrick MD Signed By: Rohit Patrick MD Signed Date/Time: 08/19/22 3:43 pm Transcribed By: KYRA Transcribed Date/Time: 08/19/22 3:42 pm Care Team PersonnelName: Alf Traylor MD Address: [address] [place] [address] [facility] [address]
--- OUTSIDE RECORDS SUMMARY | 2022-10-08 20:24 | XMS_ITS | Continuity of Care Document ---
:2000 Author Organization [facility] Address [address] [place] [id number]- Care Team Providers Name Role Phone Kymberly FLORES, Alf Fitzgerald Primary Care Physician Encounter [facility] Date(s): 06/10/20 - 06/10/[address] [address]- [facility] Discharge Disposition: A-D/C Home Attending [...] oldest [Reference Range]: 1 Height 196 cm (06/10/20 9:01 PM) Weight 153 kg (06/10/20 9:01 PM) Oxygen Saturation [94-100 %] 99 % (06/10/20 9:01 PM) Pulse Rate [55-90 bpm] 92 bpm *H* (06/10/20 9:01 PM) Blood Pressure [90-138/55-84 mm Hg] 132/81 mm Hg (06/10/20 9:01 PM) Respiratory Rate [16-30 br/min] 18 br/min (06/10/20 9:01 PM) Temperature [96.8-100.4 DegF] 98 DegF (06/10/20 9:01 PM) Mode of Delivery (Oxygen) Room air (06/10/20 9:01 PM) Blood pressure sites Arm, right (06/10/20 9:01 PM) Temperature Route Oral (06/10/20 9:01 PM) Dry Weight 153 kg (06/10/20 9:01 PM) Weight Obtained Via Patient/family stated (06/10/20 9:01 PM) Dry Weight Obtained Via Patient/family stated (06/10/20 9:01 PM) Social History Social History Type Response Smoking Status 10 or more cigarettes (1/2 p ack or more)/day in last 30 days entered on: 08/05/19 Sex
--- OUTSIDE RECORDS SUMMARY | 2022-10-08 20:24 | XMS_ITS | Continuity of Care Document ---
:2000 Author Organization [facility] Address [address] [place] [phone]- Care Team Providers Name Role Phone Kymberly FLORES, Alf Fitzgerald Primary Care Physician [place] [facility] [place] - 01/02/[address] [address]- [facility] Attending Physician: Not on Staff, Attending MD Allergies, Adverse Reactions, Alerts Substance Reaction [...]
--- OUTSIDE RECORDS SUMMARY | 2022-10-08 20:24 | XMS_ITS | Continuity of Care Document ---
:2000 Author Organization [facility] Address [address] [place] [id number]- Care Team Providers Name Role Phone Kymberly FLORES, Alf Fitzgerald Primary Care Physician [place] [facility] [place] - 08/23/[address] [address]- Encounter Diagnosis Aggression (Final) - 08/23/22 Discharge Disposition: A-D/C Home Attending Physician: Eda [...] 3 [Reference Range]: Oxygen Saturation [94-100 %] 94 % 89 % 99 % (08/23/22 8:51 PM) *L* (08/23/22 4:23 PM) (08/23/22 6:24 PM) Pulse Rate [55-90 bpm] 101 bpm 92 bpm 93 bpm *H* *H* *H* (08/23/22 8:51 PM) (08/23/22 6:24 PM) (08/23/22 4:2 3 PM) Blood Pressure [90-138/55-84 mm 135/77 mm Hg 116/63 mm Hg 131/85 mm Hg Hg] (08/23/22 8:51 PM) (08/23/22 6:24 PM) (08/23/22 4:2 3 PM) Respiratory Rate [16-30 br/min] 18 br/min 20 br/min (08/23/22 6:24 PM) (08/23/22 4:23 PM) Temperature [96.8-100.4 DegF] 98.7 DegF 98.3 DegF (08/23/22 6:24 PM) (08/23/22 4:23 PM) Mode of Delivery (Oxygen) Room air Room air Room a ir (08/23/22 8:51 PM) (08/23/22 6:24 PM) (08/23/22 4:2 3 PM) Blood pressure sites Arm, left Arm, right (08/23/22 6:24 PM) (08/23/22 4:23 PM) Temperature Route Oral Oral (08/23/22 6:24 PM) (08/23/22 4:23 PM) Social History Social History Type Response Smoking Status 10 or more cigarettes (1/2 p ack or more)/day in last 30 days entered on: 08/05/19 Sex Care Team PersonnelName: Alf Traylor MD Address: [address] [place] [address] [facility] [place], [place] [address]
--- OUTSIDE RECORDS SUMMARY | 2022-10-08 20:24 | XMS_ITS | Continuity of Care Document ---
:2000 Author Organization [facility] Address [address] [place] [address]- Care Team Providers Name Role Phone Kymberly FLORES, Alf Fitzgerald Primary Care Physician Encounter [facility] Date(s): 11/30/19 - 11/30/[address] [address]- [facility] Discharge Disposition: A-D/C Home Attending Physician: Mp [...] Disorder(Confirmed) Mood disorder NOS(Confirmed) 04/25/13 Active Results Orders for Microbiology Reports Name Date Blood Culture #2 11/30/19 Microbiology Reports TEST:Blood Culture, Second Order STATUS:Unauthenticated BODY SITE: SOURCE:Blood COLLECTED DATE/TIME:11/30/19 2:39 PMBlood Culture, Second Order SPECIMEN DESCRIPTION : BLOOD LEFT ARM SPECIAL REQUESTS : NONE REPORT STATUS : PRELIMINARY REPORT Radiology Reports Exam Date Time Procedure Performing Provider Status 11/30/19 3:09 PM Chest 2 Views Frontal and Lat Racquel Conner ; Auth (Verified) Notes:(Chest 2 Views Frontal and Lat) Reason For Exam: Shortness of Breath, Fever;Other:RESULT: Chest 2 Views Frontal and Lat Chest 2 Views Frontal and Lat Reason: Other:; Shortness of Breath, Fever; Clinical Question(s): Pneumonia COMPARISON: 08/05/2019 FINDINGS: No acute process IMPRESSION: No acute abnormality. WSN: [id number] Dictated By: Rohit Patrick MD Dictated Date/Time: 11/30/19 3:12 pm Reviewed By: Rohit Patrick MD Signed By: Rohit Patrick MD Signed Date/Time: 11/30/19 3:12 pm Transcribed By: KYRA Transcribed Date/Time: 11/30/19 3:11 pm Vital Signs Most recent to oldest 1 2 3 [Reference Range]: Height 197 cm 197 cm 197 cm (11/30/19 5:05 PM) (11/30/19 3:19 PM) (11/30/19 2:13 P M) Weight 149.1 kg 149.1 kg 149.1 kg (11/30/19 5:05 PM) (11/30/19 3:19 PM) (11/30/19 2:13 P M) Oxygen Saturation [94-100 %] 96 % 95 % 95 % (11/30/19 5:05 PM) (11/30/19 3:19 PM) (11/30/19 2:13 P M) Pulse Rate [55-90 bpm] 85 bpm 86 bpm 108 bpm (11/30/19 5:05 PM) (11/30/19 3:19 PM) *H* (11/30/19 2:13 PM) Body Mass Index [18.5-24.99] 38.42 38.42 *>HHI* *>HHI* (11/30/19 5:05 PM) (11/30/19 3:19 PM) Blood Pressure [90-138/55-84 122/70 mm Hg 135/76 mm Hg 145 /84 mm Hg mm Hg] (11/30/19 5:05 PM) (11/30/19 3:19 PM) *H* (11/30/19 2:13 PM) Respiratory Rate [16-30 17 br/min 17 br/min 18 br/mi n br/min] (11/30/19 5:05 PM) (11/30/19 3:19 PM) (11/30/19 2:13 P M) Temperature [96.8-100.4 99.1 DegF DegF] (11/30/19 2:13 PM) Mode of Delivery (Oxygen) Room air Room air (11/30/19 5:05 PM) (11/30/19 2:13 PM) Temperature Route Oral (11/30/19 2:13 PM) Dry Weight 149.1 kg 149.1 kg 149.1 kg (11/30/19 5:05 PM) (11/30/19 3:19 PM) (11/30/19 2:13 P M) Dry Weight Obtained Via Patient/family stated (11/30/19 2:13 PM) Social History Social History Type Response Smoking Status 10 or more cigarettes (1/2 p ack or more)/day in last 30 days entered on: 08/05/19 Sex
[2022-10-08 20:54] VITALS: BP 120/55; PULSE 85; RESP 16; TEMP 36.9; O2SAT 96
[2022-10-08 21:15] LABS: MANUAL DIFF FLAG NO
[2022-10-08 21:18] LABS: Basophils Absolute Auto 0.1 X10*3/uL (0.0-0.2); Basophils Percent Auto 0.5 % (0-2); Eosinophils Absolute Auto 0.8 X10*3/uL (0.0-0.4); Eosinophils Percent Auto 8.5 % (0-4); Hematocrit 42.6 % (42.0-52.0); Hemoglobin 13.7 g/dl (14.0-18.0); Imm Gran Abs Auto 0.03 X10*3/uL (0.00-0.03); Imm Gran Pct Auto 0.3 % (0.0-0.4); Lymphocytes Absolute Auto 4.3 X10*3/uL (1.2-4.9); Lymphocytes Percent Auto 43.2 % (20-40); Mean Corpuscular HGB Conc 32.2 g/dl (31.0-36.0); Mean Corpuscular Hemoglobin 29.6 pg (27.0-33.0); Mean Platelet Volume 10.1 fL (9.4-12.4); Monocytes Percent Auto 9.6 % (2-11); Neutrophils Absolute Auto 3.8 x10*3/uL (2.0-8.3); Neutrophils Percent Auto 37.9 % (45-73); Platelet Count 216 X10*3/uL (160-400); Red Blood Count 4.63 X10*6/uL (4.60-5.80); Red Cell Distribution Width 14.2 % (11.0-16.0); White Blood Count 9.9 X10*3/uL (4.8-10.8)
[2022-10-08 21:34] LABS: COVID-19 Test Negative (Negative); IDNOW Serial# 16C4AD1C
[2022-10-08 21:38] LABS: Alanine Aminotransferase 51 U/L (0-40); Albumin Level 3.9 g/dL (3.5-5.0); Alkaline Phosphatase 120 U/L (39-117); Anion Gap 19 (12-20); Aspartate Amino Transferase 45 U/L (5-37); Bilirubin Total 0.3 mg/dL (0.0-1.0); Blood Urea Nitrogen 19 mg/dL (9-16); Calcium 9.6 mg/dL (8.4-10.2); Carbon Dioxide 21 mmol/L (22-29); Chloride 105 mmol/L (96-108); Creatinine Clr Calc Pharmacy 204.4; Estimated Glomerular Filt Rate > 60; Glucose Random 118 mg/dL (60-115); Lipase 103 U/L (8-78); Magnesium 1.9 mg/dL (1.6-2.6); Potassium 4.3 mmol/L (3.3-5.1); Sodium 141 mmol/L (135-145); Total Protein 7.9 g/dL (6.5-8.0)
[2022-10-08 22:00] VITALS: BP 119/70; PULSE 86; RESP 16; TEMP 36.7; O2SAT 98
[2022-10-08] MEDS: iohexoL 350 MG/ML 100 ML INFUS..BTL IV (22:04)
[2022-10-08 23:40] VITALS: RESP 20
[2022-10-08] MEDS: Morphine Sulfate 2 MG/ML CARTRIDGE IVPUSH (23:40)
[2022-10-08 23:43] VITALS: BP 120/69; PULSE 84; RESP 20; O2SAT 96
--- NOTE | 2022-10-08 23:57 | PC.NURSE ---
pt mom was called at the pt request to explain that the pt will be staying the night with a possable admitt for appendix.
[2022-10-09] VITALS (8 sets, daily range): BP systolic 113–137; BP diastolic 58–81; PULSE 75–81; RESP 16–20; TEMP 36.2–37.3; O2SAT 93–98; BMI 47.4
--- NOTE | 2022-10-09 00:27 | P.HPHOSP_ITS ---
History of Present Illness Date of Service: 10/09/22 Chief Complaint: Abdominal Pain This is a 21-year-old with pertinent history of XXY syndrome, intellectual developmental disorder, psychogenic nonepileptic seizure, resident of [facility] who presents to the emergency department for evaluation of right-sided abdominal discomfort. Patient states abdominal pain started about 1 week ago, located in the right lower quadrant, nonradiating and progressive. It is associated with nausea and nonbloody emesis. Patient also having episodes of nonbloody diarrhea. unclear if he had fever, denies chills, denies chest pain, palpitations, shortness of breath, changes in urinary habits. As per EMS, patient had shaking of extremities on his way to the ER, lasted briefly without postictal confusion. Again while having CT of the abdomen, patient was moving all his extremities and saying that he was having a seizure. ER provider did not think it was a real seizure. No postictal confusion, tongue bite, urinary or bowel incontinence. In the emergency department, imaging was concerning for possible appendicitis. Dr. Yung acosta, General surgery was consulted who recommended admission for observation and will evaluate the patient in a.m.. Review of Systems Constitutional: Constitutional: Reports chills Cardiovascular: Cardiovascular: Reports no additional cardiovascular complaints Respiratory: Respiratory: Reports no additional respiratory complaints Gastrointestinal: Gastrointestinal: Reports abdominal pain, Reports diarrhea, Reports nausea and Reports vomiting PMFSH Medical History Adjustment disorder Chronic abdominal pain Developmental disability Dyspnea Seborrheic dermatitis Seizures XXYY syndrome Family History Father No problems noted. Mother Hypertension Diabetes Other History of brain cancer Surgical History History of testicular surgery Social History Housing: Assisted Living Facility Alcohol intake: never Patient Tobacco Use Status: Former Tobacco user Quit Date: 1 week ago Tobacco use type: Cigarette Years Smoked: 16 years old e-Cigarette/Vaping Use: Currently Using Second Hand Smoke Exposure: Yes Substance Use Type: Crack/Cocaine and Marijuana Advance Directives: No Advance Directives Information Provided: No service: No Current occupational status: disabled Cognitive needs: Yes Hearing needs: No Vision needs: No Meds Allergies Allergy/AdvReac Type Severity Reaction Status Date / Time methylphenidate Allergy Unknown UNKNOWN Verified 08/11/22 14:43 [From RITALIN] shrimp [SHRIMP] Allergy Unknown HIVES Verified 08/11/22 14:43 haloperidol [From Haldol] Allergy Involuntary Verified 08/11/22 14:43 Spasms Active Medications: Current Medications Acetaminophen (Acetaminophen 325 Mg Tablet) 650 mg PO Q6H PRN PRN Reason: Pain, Mild (Pain Scale 1-3) Melatonin (Melatonin 3 Mg Tablet) 6 mg PO BEDTIME PRN PRN Reason: Insomnia Ondansetron HCl (Ondansetron Hcl 4 Mg/2 Ml Vial) 4 mg IVPUSH Q8H PRN PRN Reason: Nausea and Vomiting Pharmacy Consult (Consult Rx Perform Med Rec) 1 each MISCELLANE ONCE PRN PRN Reason: Consult order Sodium Chloride (0.9 % Sodium Chloride Flush 3 Ml Syringe) 3 ml IVFLUSH [facility] Medications Medication Instructions Recorded Confirmed Last Taken Type divalproex 500 mg tablet,delayed 1,500 mg PO BEDTIME 05/29/22 08/20/22 08/19/22 History release guanfacine 4 mg tablet,extended 4 mg PO BEDTIME 05/29/22 08/20/22 08/19/22 History release 24 hr melatonin 3 mg tablet 3 mg PO BEDTIME 05/29/22 08/20/22 08/19/22 History propranolol 160 mg capsule,24 160 mg PO DAILY 05/29/22 08/20/22 08/20/22 History hr,extended release quetiapine 400 mg tablet 2 tab PO BEDTIME 05/29/22 08/20/22 08/19/22 History chlorpromazine 25 mg tablet 25 mg PO TID 08/20/22 08/20/22 08/20/22 History lorazepam 2 mg tablet 1 tab PO BID PRN Anxiety 08/20/22 08/20/22 Unknown History Physical Exam Vital Signs and Narrative: Vital Signs: Last Vital Signs Temp 98.0 F 10/08/22 22:00 Pulse 84 10/08/22 23:43 Resp 20 10/08/22 23:43 BP 120/69 10/08/22 23:43 Pulse Ox 96 10/08/22 23:43 O2 Del Method 10/08/22 23:43 BMI result Body Mass Index 33.3 Young male lying in bed in no distress Neck supple, no JVD Regular rate and rhythm, S1-S2 heard Regular breath sounds bilaterally, no wheezing or crackles appreciated Abdomen with generalized tenderness to palpation, no rigidity Patient is awake, alert and oriented to self, place, time and person ; no focal motor deficit Psych: Normal mood No pedal edema Results Labs CBC and Chem 7: 10/08/22 21:09 10/08/22 21:09 Labs: Laboratory Results - last 24 hr 10/08/22 10/08/22 10/08/22 21:09 21:09 21:10 MCV 92.0 MCH 29.6 MCHC 32.2 RDW 14.2 Plt Count 216 MPV 10.1 Immature Gran % (Auto) 0.3 Neut % (Auto) 37.9 L Lymph % (Auto) 43.2 H Armstrong % (Auto) 9.6 Eos % (Auto) 8.5 H Baso % (Auto) 0.5 Lymph # (Auto) 4.3 Armstrong # (Auto) 1.0 Eos # (Auto) 0.8 H Baso # (Auto) 0.1 Abs Immat Gran (auto) 0.03 Absolute Neuts (auto) 3.8 Absolute Nucleated RBC 0.000 Nucleated RBC % (auto) 0.0 Anion Gap 19 Estim Creat Clear Calc 204.4 Estimated GFR > 60 Random Glucose 118 H Calcium 9.6 Magnesium 1.9 Total Bilirubin 0.3 AST 45 H ALT 51 H Alkaline Phosphatase 120 H Total Protein 7.9 Albumin 3.9 Lipase 103 H COVID-19 (JULISSA) Negative COVID-19 Clin Com See Note Imaging Radiologist's Impressions: Impressions Abdomen/Pelvis CT 10/08/22 22:15 IMPRESSION: Small amount of fluid tracking into the mesentery at the expected origin of the appendix. The appendix is not definitively identified. In the absence of any interval appendectomy since 2019, this appearance may be indicative of very early appendicitis. Please correlate with clinical symptomatology and laboratory assessment. Please see meehan images. Fleischner guidelines were followed. Assessment and Plan (1) Intellectual developmental disorder, severe: Status: Acute (2) Psychogenic nonepileptic seizure: Status: Acute (3) XXYY syndrome: Status: Acute (4) Abdominal pain: Status: Acute Plan This is a 21-year-old with pertinent history of XXY syndrome, intellectual developmental disorder, psychogenic nonepileptic seizure, resident of [facility] who presents to the emergency department for evaluation of right-sided abdominal discomfort. #. Abdominal pain -Imaging with concerns for appendicitis. General surgery consulted from the ER, appreciate assistance. Initiating empiric IV antibiotics. Will keep patient NPO. Resuscitated with IV crystalloid in the ER #. PNES -does have history of psychogenic seizures. Was not true seizure in the ER as per ER provider. Continue to monitor. Consider EEG and neurology based on further episodes. #. XXY syndrome #. Intellectual developmental disorder Med rec pending DVT prophylaxis: Holding Lovenox until surgical evaluation NPO for bowel rest and surgical evaluation Full code Quality Stroke Does the patient have a stroke diagnosis?: No VTE Prior VTE?: No VTE Risk Level:: Medical - moderate - high VTE Device Contraindication: Treatment Not Indicated VTE Drug Contraindication: Treatment Not Indicated
--- NOTE | 2022-10-09 00:59 | PC.NURSE ---
Addendum entered by Nessa Blanco 10/09/22 03:53: PATIENT DID CHANGE INTO HOSPITAL ATTIRE BEFORE GOING UPSTAIRS . Original Note: 0000 rounding done ,vs taken patient resting quietly in bed ,pt will change into hospital attire when he gets to his room ,terrie merida aware .
[2022-10-09] MEDS: Piperacillin Sodium/Tazobactam 4.5 GM in 0.9 % Sodium Chloride 100 ML IV ×4 (01:18→18:27)
[2022-10-09 01:33] LABS: Appearance Urine Clear; Color Urine Yellow; Glucose Urine UA Negative (Negative); Leukocyte Esterase Urine Negative (Negative); Nitrite Urine Negative (Negative); Specific Gravity - Urine >= 1.030 (1.005-1.025); Urine Blood Negative (Negative); Urine Ketones Negative (Negative); Urine Protein Trace mg/dL (Neg-Trace)
--- NOTE | 2022-10-09 01:44 | PC.NURSE ---
0200 ROUNDING DONE PT AWAKE WATCHNG TELEVISION ,CALL WHITE WITHIN REACH .
[2022-10-09 06:16] LABS: Alanine Aminotransferase 46 U/L (0-40); Albumin Level 3.7 g/dL (3.5-5.0); Alkaline Phosphatase 102 U/L (39-117); Anion Gap 14 (12-20); Aspartate Amino Transferase 35 U/L (5-37); Bilirubin Total 0.4 mg/dL (0.0-1.0); Blood Urea Nitrogen 18 mg/dL (9-16); Calcium 9.7 mg/dL (8.4-10.2); Carbon Dioxide 24 mmol/L (22-29); Chloride 108 mmol/L (96-108); Creatinine Clr Calc Pharmacy 213.2; Estimated Glomerular Filt Rate > 60; Glucose Random 92 mg/dL (60-115); Potassium 4.4 mmol/L (3.3-5.1); Sodium 142 mmol/L (135-145); Total Protein 7.2 g/dL (6.5-8.0)
[2022-10-09] MEDS: 0.9 % Sodium Chloride Flush 3 ML SYRINGE IVFLUSH ×3 (08:17→21:05)
--- NOTE | 2022-10-09 08:54 | PHA.MEDREC ---
Med rec complete, reviewed med list with Director of the patients [facility] Pharmacy Consult ? Medication Reconciliation Pharmacy has completed the medication reconciliation.
[2022-10-09] MEDS: Morphine Sulfate 4 MG/ML CARTRIDGE IVPUSH ×2 (10:47→18:35)
[2022-10-09] MEDS: chlorproMAZINE HCl 25 MG TABLET PO ×3 (10:47→21:02)
[2022-10-09] MEDS: Propranolol HCL LA 80 MG CAP.SA.24H 160 MG PO (11:12)
[2022-10-09] MEDS: Acetaminophen 325 MG TABLET 650 MG PO (12:05)
--- NOTE | 2022-10-09 14:00 | PM.EVENT ---
Event Note Date of Service: 10/09/22 Event Note: Chart reviewed patient examined. Exam consistent with mild right lower quadrant tenderness. Patient remains NPO pending surgery evaluation
--- NOTE | 2022-10-09 14:10 | P.CONGS_ITS ---
History of Present Illness Consult details Consult date: 10/09/22 Narrative: 21-year-old male with developmental disorder, and multiple psychiatric issues, admitted last night because of abdominal pain. He says that he has had no pain on the right side for over 1 week now. He describes a bit of nausea days ago. He denies any diarrhea. Review of his history actually shows that he has had abdominal pain for many years. He has had previous imaging studies as well out any identifiable pathology. He lives in a halfway. According to the halfway staff for with him, he has violent tendencies with a diagnosis of intermittent explosive disorder. He has xXYY syndrome. He apparently was in the ER in [facility] 3 days ago after he complained of chest pain. Review of Systems Constitutional: Constitutional: Denies chills and Denies fever(s) Cardiovascular: Cardiovascular: Reports chest pain, Denies dyspnea and Denies dyspnea on exertion Respiratory: Respiratory: Denies cough, Denies dyspnea and Denies dyspnea on exertion Gastrointestinal: Gastrointestinal: Denies hematochezia and Denies change in bowel habits Genitourinary: Genitourinary: Denies hematuria and Denies difficulty urinating Musculoskeletal: Musculoskeletal: Denies back pain and Denies limited range of motion Neurologic: Denies focal weakness and Denies convulsions Psychiatric: Psychiatric: Denies depression and Reports mood swings PMFSH Past Medical History Medical History Adjustment disorder Chronic abdominal pain Developmental disability Dyspnea Seborrheic dermatitis Seizures XXYY syndrome Family History Family History Father No problems noted. Mother Hypertension Diabetes Other History of brain cancer Surgical History Surgical History History of testicular surgery Social History Social History Household Members: Other Household Members Other:: halfway Housing: Other Do you presently have visiting nurse or other home services: No Alcohol intake: never Patient Tobacco Use Status: Never used Tobacco Tobacco use type: Cigarette Years Smoked: 16 years old e-Cigarette/Vaping Use: Never Used Second Hand Smoke Exposure: No Substance Use Type: Crack/Cocaine and Marijuana service: No Current occupational status: disabled Cognitive needs: Yes Hearing needs: No Vision needs: No Meds Allergies Allergy/AdvReac Type Severity Reaction Status Date / Time methylphenidate Allergy Unknown UNKNOWN Verified 08/11/22 14:43 [From RITALIN] shrimp [SHRIMP] Allergy Unknown HIVES Verified 08/11/22 14:43 haloperidol [From Haldol] Allergy Involuntary Verified 08/11/22 14:43 Spasms Active Medications: Current Medications Acetaminophen (Acetaminophen 325 Mg Tablet) 650 mg PO Q6H PRN PRN Reason: Pain, Mild (Pain Scale 1-3) Last Admin: 10/09/22 12:05 Dose: 650 mg Chlorpromazine HCl (Chlorpromazine Hcl 25 Mg Tablet) 25 mg PO TID [facility] Last Admin: 10/09/22 10:47 Dose: 25 mg Divalproex Sodium (Divalproex Sodium 500 Mg Tablet.Dr) 2,000 mg PO BEDTIME KATTY Guanfacine HCl (Guanfacine Hcl Er 2 Mg Tab.Er.24h) 4 mg PO BEDTIME KATTY Piperacillin Sod/Tazobactam (Sod 4.5 gm/ Sodium Chloride) 100 mls @ 200 mls/hr IV Q6H [facility] Last Infusion: 10/09/22 12:54 Dose: Infused Lorazepam (Lorazepam 1 Mg Tablet) 2 mg PO BID PRN PRN Reason: Anxiety Melatonin (Melatonin 3 Mg Tablet) 6 mg PO BEDTIME PRN PRN Reason: Insomnia Morphine Sulfate (Morphine Sulfate 4 Mg/Ml Cartridge) 4 mg IVPUSH Q4H PRN; Protocol PRN Reason: Pain, Severe (Pain Scale 7-10) Last Admin: 10/09/22 10:47 Dose: 4 mg Ondansetron HCl (Ondansetron Hcl 4 Mg/2 Ml Vial) 4 mg IVPUSH Q8H PRN PRN Reason: Nausea and Vomiting Pharmacy Consult (Consult Rx Perform Med Rec) 1 each MISCELLANE ONCE PRN PRN Reason: Consult order Propranolol HCl (Propranolol Hcl La 80 Mg Cap.Sa.24h) 160 mg PO DAILY [facility]; Protocol Last Admin: 10/09/22 11:12 Dose: 160 mg Quetiapine Fumarate (Quetiapine Fumarate 400 Mg Tablet) 800 mg PO BEDTIME [facility] Sodium Chloride (0.9 % Sodium Chloride Flush 3 Ml Syringe) 3 ml IVFLUSH QSHIFT [facility] Last Admin: 10/09/22 08:17 Dose: 3 ml Home Medications Medication Instructions Recorded Confirmed Last Taken Type divalproex 500 mg tablet,delayed 2,000 mg PO BEDTIME 05/29/22 10/09/22 08/19/22 History release guanfacine 4 mg tablet,extended 4 mg PO BEDTIME 05/29/22 10/09/22 08/19/22 History release 24 hr melatonin 3 mg tablet 3 mg PO BEDTIME 05/29/22 10/09/22 08/19/22 History propranolol 160 mg capsule,24 160 mg PO DAILY 05/29/22 10/09/22 08/20/22 History hr,extended release quetiapine 400 mg tablet 2 tab PO BEDTIME 05/29/22 10/09/22 08/19/22 History chlorpromazine 25 mg tablet 25 mg PO TID 08/20/22 10/09/22 08/20/22 History lorazepam 2 mg tablet 1 tab PO BID PRN Anxiety 08/20/22 10/09/22 Unknown History Physical Exam Vital Signs: Vital Signs: Last Vital Signs Temp 97.7 F 10/09/22 11:50 Pulse 81 10/09/22 11:50 Resp 18 10/09/22 11:50 BP 137/62 10/09/22 11:50 Pulse Ox 93 10/09/22 11:50 O2 Del Method 10/09/22 11:50 BMI result Body Mass Index 47.4 Const: Other: Morbidly obese General: comfortable and no acute distress Orientation/consciousness: patient oriented x3 Neck: Neck: Yes no lymphadenopathy Resp: Auscultation: clear to auscultation bilaterally Cardio: Rhythm: regular rhythm GI: Other: some tenderness on the right side Palpation (GI): Soft to palpation, Tenderness to palpation present (GI) and no guarding Neuro: General: patient oriented x3 Results Labs Result diagrams: 10/12/22 05:29 10/10/22 05:48 Labs: Abnormal lab results 10/08/22 10/08/22 10/09/22 Range/Units 21:09 21:09 01:27 Hgb 13.7 L (14.0-18.0) g/dl Neut % (Auto) 37.9 L (45-73) % Lymph % (Auto) 43.2 H (20-40) % Eos % (Auto) 8.5 H (0-4) % Eos # (Auto) 0.8 H (0.0-0.4) X10*3/uL Carbon Dioxide 21 L (22-29) mmol/L BUN 19 H (9-16) mg/dL Random Glucose 118 H (60-115) mg/dL AST 45 H (5-37) U/L ALT 51 H (0-40) U/L Alkaline Phosphatase 120 H (39-117) U/L Lipase 103 H (8-78) U/L Ur Specific Winston >= 1.030 H (1.005-1.025) 10/09/22 Range/Units 05:31 Hgb (14.0-18.0) g/dl Neut % (Auto) (45-73) % Lymph % (Auto) (20-40) % Eos % (Auto) (0-4) % Eos # (Auto) (0.0-0.4) X10*3/uL Carbon Dioxide (22-29) mmol/L BUN 18 H (9-16) mg/dL Random Glucose (60-115) mg/dL AST (5-37) U/L ALT 46 H (0-40) U/L Alkaline Phosphatase (39-117) U/L Lipase (8-78) U/L Ur Specific [place] (1.005-1.025) Short CBC 10/08/22 Range/Units 21:09 WBC 9.9 (4.8-10.8) X10*3/uL Hgb 13.7 L (14.0-18.0) g/dl Hct 42.6 (42.0-52.0) % Plt Count 216 (160-400) X10*3/uL BMP 10/08/22 10/09/22 21:09 05:31 Sodium 141 142 Potassium 4.3 4.4 Chloride 105 108 Carbon Dioxide 21 L 24 BUN 19 H 18 H Creatinine 0.83 0.96 Calcium 9.6 9.7 Liver Function 10/08/22 10/09/22 Range/Units 21:09 05:31 Total Bilirubin 0.3 0.4 (0.0-1.0) mg/dL AST 45 H 35 (5-37) U/L ALT 51 H 46 H (0-40) U/L Alkaline Phosphatase 120 H 102 (39-117) U/L Albumin 3.9 3.7 (3.5-5.0) g/dL Urine 10/09/22 Range/Units 01:27 Urine Color Yellow Urine Appearance Clear Urine pH 6.0 (5.0-9.0) Ur Specific [place] >= 1.030 H (1.005-1.025) Urine Protein Trace (Neg-Trace) mg/dL Urine Glucose (UA) Negative (Negative) mg/dL All other labs normal. Imaging Additional studies: Laboratory Results WBC 9.9 X10*3/uL (4.8-10.8) 10/08/22 21:09 RBC 4.63 X10*6/uL (4.60-5.80) 10/08/22 21:09 Hgb 13.7 g/dl (14.0-18.0) L 10/08/22 21:09 Hct 42.6 % (42.0-52.0) 10/08/22 21:09 MCV 92.0 fL (80.0-98.0) 10/08/22 21:09 MCH 29.6 pg (27.0-33.0) 10/08/22 21:09 MCHC 32.2 g/dl (31.0-36.0) 10/08/22 21:09 RDW 14.2 % (11.0-16.0) 10/08/22 21:09 Plt Count 216 X10*3/uL (160-400) 10/08/22 21:09 MPV 10.1 fL (9.4-12.4) 10/08/22 21:09 Immature Gran % (Auto) 0.3 % (0.0-0.4) 10/08/22 21:09 Neut % (Auto) 37.9 % (45-73) L 10/08/22 21:09 Lymph % (Auto) 43.2 % (20-40) H 10/08/22 21:09 Anderson % (Auto) 9.6 % (2-11) 10/08/22 21:09 Eos % (Auto) 8.5 % (0-4) H 10/08/22 21:09 Baso % (Auto) 0.5 % (0-2) 10/08/22 21:09 Lymph # (Auto) 4.3 X10*3/uL (1.2-4.9) 10/08/22 21:09 Anderson # (Auto) 1.0 X10*3/uL (0.1-1.2) 10/08/22 21:09 Eos # (Auto) 0.8 X10*3/uL (0.0-0.4) H 10/08/22 21:09 Baso # (Auto) 0.1 X10*3/uL (0.0-0.2) 10/08/22 21:09 Abs Immat Gran (auto) 0.03 X10*3/uL (0.00-0.03) 10/08/22 21:09 Absolute Neuts (auto) 3.8 x10*3/uL (2.0-8.3) 10/08/22 21:09 Absolute Nucleated RBC 0.000 X10*3/uL (0.0-0.012) 10/08/22 21:09 Nucleated RBC % (auto) 0.0 /100WBC (0.0-0.2) 10/08/22 21:09 Sodium 142 mmol/L (135-145) 10/09/22 05:31 Potassium 4.4 mmol/L (3.3-5.1) 10/09/22 05:31 Chloride 108 mmol/L (96-108) 10/09/22 05:31 Carbon Dioxide 24 mmol/L (22-29) 10/09/22 05:31 Anion Gap 14 (12-20) 10/09/22 05:31 BUN 18 mg/dL (9-16) H 10/09/22 05:31 Creatinine 0.96 mg/dL (0.5-1.4) 10/09/22 05:31 Estim Creat Clear Calc 213.2 10/09/22 05:31 Estimated GFR > 60 10/09/22 05:31 Random Glucose 92 mg/dL (60-115) 10/09/22 05:31 Calcium 9.7 mg/dL (8.4-10.2) 10/09/22 05:31 Magnesium 1.9 mg/dL (1.6-2.6) 10/08/22 21:09 Total Bilirubin 0.4 mg/dL (0.0-1.0) 10/09/22 05:31 AST 35 U/L (5-37) 10/09/22 05:31 ALT 46 U/L (0-40) H 10/09/22 05:31 Alkaline Phosphatase 102 U/L (39-117) 10/09/22 05:31 Total Protein 7.2 g/dL (6.5-8.0) 10/09/22 05:31 Albumin 3.7 g/dL (3.5-5.0) 10/09/22 05:31 Lipase 103 U/L (8-78) H 10/08/22 21:09 Urine Color Yellow 10/09/22 01:27 Urine Appearance Clear 10/09/22 01:27 Urine pH 6.0 (5.0-9.0) 10/09/22 01:27 Ur Specific Winston >= 1.030 (1.005-1.025) H 10/09/22 01:27 Urine Protein Trace mg/dL (Neg-Trace) 10/09/22 01:27 Urine Glucose (UA) Negative mg/dL (Negative) 10/09/22 01:27 Urine Ketones Negative mg/dL (Negative) 10/09/22 01:27 Urine Blood Negative (Negative) 10/09/22 01:27 Urine Nitrite Negative (Negative) 10/09/22 01:27 Ur Leukocyte Esterase Negative (Negative) 10/09/22 01:27 COVID-19 (JULISSA) Negative (Negative) 10/08/22 21:10 COVID-19 Clin Com See Note 10/08/22 21:10 Impressions Abdomen/Pelvis CT 10/08/22 22:15 IMPRESSION: Small amount of fluid tracking into the mesentery at the expected origin of the appendix. The appendix is not definitively identified. In the absence of any interval appendectomy since 2019, this appearance may be indicative of very early appendicitis. Please correlate with clinical symptomatology and laboratory assessment. Please see meehan images. Fleischner guidelines were followed. Assessment and Plan (1) Abdominal pain: Status: Acute He has had abdominal pain as described above for over 1 week now. He does not have leukocytosis. I have reviewed his CAT scan. There is a small amount flu id in the right lower quadrant along the mesentery but there is no other inflammatory change seen. There is no streaking of fat. Appendix itself is not clearly visualized. Overall clinical picture does not seem to strongly suggestive of acute appendicitis. I am uncertain as to the etiology of his right-sided abdominal pain although he does have a history of chronic abdominal pain for many years. I would start him on clear liquids for now and slowly advance this. He otherwise has a very benign exam. I will follow along while he is in the hospital. Procedures Date of Service Date of Service: 10/09/22
--- NOTE | 2022-10-09 15:13 | PC.NURSE ---
The patient got aggressive and smashed his I phone on the wall because he wanted some water to drink but was told he is NPO. Security was called, the patient is now calm in his room.
[2022-10-09] MEDS: LORazepam 1 MG TABLET 2 MG PO (21:01)
[2022-10-09] MEDS: guanFACINE HCl ER 2 MG TAB.ER.24H 4 MG PO (21:02)
[2022-10-09] MEDS: QUEtiapine Fumarate 400 MG TABLET 800 MG PO (21:02)
[2022-10-09] MEDS: Divalproex Sodium 500 MG TABLET.DR 2000 MG PO (21:02)
[2022-10-10] VITALS: BP 113/69; PULSE 72; RESP 18; TEMP 36.6; O2SAT 97
[2022-10-10] MEDS: Piperacillin Sodium/Tazobactam 4.5 GM in 0.9 % Sodium Chloride 100 ML IV ×4 (00:01→19:12)
[2022-10-10 04:00] VITALS: BP 123/59; PULSE 76; RESP 18; TEMP 37.1; O2SAT 97
[2022-10-10] MEDS: Morphine Sulfate 4 MG/ML CARTRIDGE IVPUSH ×3 (05:55→18:16)
[2022-10-10 07:03] LABS: MANUAL DIFF FLAG NO
[2022-10-10 07:06] LABS: Basophils Percent Auto 0.4 % (0-2); Eosinophils Percent Auto 11.1 % (0-4); Hematocrit 42.7 % (42.0-52.0); Hemoglobin 13.4 g/dl (14.0-18.0); Imm Gran Abs Auto 0.02 X10*3/uL (0.00-0.03); Imm Gran Pct Auto 0.2 % (0.0-0.4); Lymphocytes Absolute Auto 4.3 X10*3/uL (1.2-4.9); Lymphocytes Percent Auto 48.1 % (20-40); Mean Corpuscular HGB Conc 31.4 g/dl (31.0-36.0); Mean Corpuscular Hemoglobin 29.1 pg (27.0-33.0); Mean Corpuscular Volume 92.8 fL (80.0-98.0); Mean Platelet Volume 10.3 fL (9.4-12.4); Monocytes Absolute Auto 0.8 X10*3/uL (0.1-1.2); Monocytes Percent Auto 9.4 % (2-11); Neutrophils Absolute Auto 2.7 x10*3/uL (2.0-8.3); Neutrophils Percent Auto 30.8 % (45-73); Platelet Count 203 X10*3/uL (160-400); Red Cell Distribution Width 14.3 % (11.0-16.0); White Blood Count 8.9 X10*3/uL (4.8-10.8)
[2022-10-10 07:28] LABS: Alanine Aminotransferase 49 U/L (0-40); Albumin Level 3.9 g/dL (3.5-5.0); Alkaline Phosphatase 112 U/L (39-117); Anion Gap 18 (12-20); Aspartate Amino Transferase 43 U/L (5-37); Bilirubin Total 0.5 mg/dL (0.0-1.0); Blood Urea Nitrogen 19 mg/dL (9-16); Calcium 9.6 mg/dL (8.4-10.2); Carbon Dioxide 23 mmol/L (22-29); Chloride 106 mmol/L (96-108); Creatinine Clr Calc Pharmacy 191.3; Estimated Glomerular Filt Rate > 60; Glucose Fasting 83 mg/dL (60-99); Potassium 4.4 mmol/L (3.3-5.1); Sodium 143 mmol/L (135-145); Total Protein 7.5 g/dL (6.5-8.0)
[2022-10-10 07:52] VITALS: BP 103/55; PULSE 70; RESP 18; TEMP 35.8; O2SAT 94
[2022-10-10] MEDS: 0.9 % Sodium Chloride Flush 3 ML SYRINGE IVFLUSH ×3 (07:53→19:15)
[2022-10-10] MEDS: Propranolol HCL LA 80 MG CAP.SA.24H 160 MG PO (07:53)
[2022-10-10] MEDS: chlorproMAZINE HCl 25 MG TABLET PO ×3 (07:54→20:03)
--- NOTE | 2022-10-10 08:45 | MHC.CM.PN ---
Interview completed w/machine group leader Peyton Chambers. Patient lives in intermediate. Reported as functionally independent. assisted provides all necessary transportation. Plan is to return to intermediate via intermediate transport. CM to follow.
[2022-10-10 09:10] LABS: C Reactive Protein 0.72 mg/dL (< or = 0.50)
--- NOTE | 2022-10-10 10:22 | P.PNGS_ITS ---
Subjective Subjective Date of Service: 10/10/22 Interval history: he says he still has pain on the abdomen no nausea or vomiting no history of fever or chills no seizures overnight Physical Exam Vital Signs: Vital Signs: Last Vital Signs Temp 96.4 F L 10/10/22 07:52 Pulse 70 10/10/22 07:52 Resp 18 10/10/22 07:52 BP 103/55 L 10/10/22 07:52 Pulse Ox 94 10/10/22 07:52 O2 Del Method 10/10/22 07:52 BMI result Body Mass Index 47.4 Const: Other: morbidly obese General: comfortable and no acute distress Resp: Effort & Inspection: normal respiratory effort Cardio: Rate: regular rate GI: Other: obese, soft, no guarding or rebound, says he is tender in the right side with deep palpation Objective Data Active Medications Acetaminophen (Acetaminophen 325 Mg Tablet) 650 mg PO Q6H PRN PRN Reason: Pain, Mild (Pain Scale 1-3) Last Admin: 10/09/22 12:05 Dose: 650 mg Documented By: GERARD Chlorpromazine HCl (Chlorpromazine Hcl 25 Mg Tablet) 25 mg PO TID [facility] Last Admin: 10/10/22 07:54 Dose: 25 mg Documented By: ALCIDES Divalproex Sodium (Divalproex Sodium 500 Mg Tablet.Dr) 2,000 mg PO BEDTIME [facility] Last Admin: 10/09/22 21:02 Dose: 2,000 mg Documented By: JAKE Guanfacine HCl (Guanfacine Hcl Er 2 Mg Tab.Er.24h) 4 mg PO BEDTIME [facility] Last Admin: 10/09/22 21:02 Dose: 4 mg Documented By: JAKE Piperacillin Sod/Tazobactam (Sod 4.5 gm/ Sodium Chloride) 100 mls @ 200 mls/hr IV Q6H [facility] Last Infusion: 10/10/22 06:34 Dose: 0 mls/hr Documented By: JAKE Lorazepam (Lorazepam 1 Mg Tablet) 2 mg PO BID PRN PRN Reason: Anxiety Last Admin: 10/09/22 21:01 Dose: 2 mg Documented By: JAKE Melatonin (Melatonin 3 Mg Tablet) 6 mg PO BEDTIME PRN PRN Reason: Insomnia Morphine Sulfate (Morphine Sulfate 4 Mg/Ml Cartridge) 4 mg IVPUSH Q4H PRN; Protocol PRN Reason: Pain, Severe (Pain Scale 7-10) Last Admin: 10/10/22 05:55 Dose: 4 mg Documented By: NERIS Ondansetron HCl (Ondansetron Hcl 4 Mg/2 Ml Vial) 4 mg IVPUSH Q8H PRN PRN Reason: Nausea and Vomiting Pharmacy Consult (Consult Rx Perform Med Rec) 1 each MISCELLANE ONCE PRN PRN Reason: Consult order Propranolol HCl (Propranolol Hcl La 80 Mg Cap.Sa.24h) 160 mg PO DAILY KATTY; Protocol Last Admin: 10/10/22 07:53 Dose: 160 mg Documented By: ALCIDES Quetiapine Fumarate (Quetiapine Fumarate 400 Mg Tablet) 800 mg PO BEDTIME [facility] Last Admin: 10/09/22 21:02 Dose: 800 mg Documented By: JAKE Sodium Chloride (0.9 % Sodium Chloride Flush 3 Ml Syringe) 3 ml IVFLUSH QSHIFT [facility] Last Admin: 10/10/22 07:53 Dose: 3 ml Documented By: ALCIDES Labs CBC & Chem 7: 10/10/22 05:48 10/10/22 05:48 Labs: Laboratory Results - last 24 hr 10/10/22 10/10/22 05:48 05:48 MCV 92.8 MCH 29.1 MCHC 31.4 RDW 14.3 Plt Count 203 MPV 10.3 Immature Gran % (Auto) 0.2 Neut % (Auto) 30.8 L Lymph % (Auto) 48.1 H [place] % (Auto) 9.4 Eos % (Auto) 11.1 H Baso % (Auto) 0.4 Lymph # (Auto) 4.3 [place] # (Auto) 0.8 Eos # (Auto) 1.0 H Baso # (Auto) 0.0 Abs Immat Gran (auto) 0.02 Absolute Neuts (auto) 2.7 Absolute Nucleated RBC 0.000 Nucleated RBC % (auto) 0.0 Anion Gap 18 Estim Creat Clear Calc 191.3 Estimated GFR > 60 Fasting Glucose 83 Calcium 9.6 Total Bilirubin 0.5 AST 43 H ALT 49 H Alkaline Phosphatase 112 C-Reactive Protein 0.72 H Total Protein 7.5 Albumin 3.9 Procedures Date of Service Date of Service: 10/10/22 Progress Note: A&P Assessment and plan (1) Abdominal pain: Status: Acute Assessment and Plan: he has had abdominal pain for over 1 week review of records show he does have chronic abdominal pain and had been seen in the office in the past clinical picture does not acute appendicitis no leukocytosis, no fever would slowly advance diet as tolerated exam otherwise good remains benign patient very unreliable with regards to providing history I will follow along while he is in the hospital Time Spent With Patient Time: Total time spent is greater than 50% in coordination of care (as documented) at patient's floor/unit and/or counseling patient: Quality Stroke Does the patient have a stroke diagnosis?: No VTE Prior VTE?: No VTE Risk Level:: Medical - moderate - high VTE Device Contraindication: Treatment Not Indicated VTE Drug Contraindication: Treatment Not Indicated
--- NOTE | 2022-10-10 10:53 | HO.PM.IMPN ---
Subjective Subjective Date of Service: 10/10/22 Interval History: c/o lower abd pain + nausea no diarrhea hx chronic abd pain no fever Review of Systems Review of Systems: Yes all other systems are reviewed and are negative Physical Exam Vital Signs: Vital Signs: Last Vital Signs Temp 96.4 F L 10/10/22 07:52 Pulse 70 10/10/22 07:52 Resp 18 10/10/22 07:52 BP 103/55 L 10/10/22 07:52 Pulse Ox 94 10/10/22 07:52 O2 Del Method 10/10/22 07:52 BMI result Body Mass Index 47.4 Gen: in no acute distress HEENT: sclera anicteric, moist mucus membranes Neck: supple Lungs: clear to auscultation bilaterally Heart: regular rate and rhythm, no murmurs Abd: soft, obese, RLQ tenderness without rebound Ext: no edema Skin: warm/well-perfused Neuro: alert and oriented x3, no focal findings Psych: appropriate affect Objective Data Active Medications Acetaminophen (Acetaminophen 325 Mg Tablet) 650 mg PO Q6H PRN PRN Reason: Pain, Mild (Pain Scale 1-3) Last Admin: 10/09/22 12:05 Dose: 650 mg Documented By: GERARD Chlorpromazine HCl (Chlorpromazine Hcl 25 Mg Tablet) 25 mg PO TID [facility] Last Admin: 10/10/22 07:54 Dose: 25 mg Documented By: ALCIDES Divalproex Sodium (Divalproex Sodium 500 Mg Tablet.Dr) 2,000 mg PO BEDTIME [facility] Last Admin: 10/09/22 21:02 Dose: 2,000 mg Documented By: JAKE Guanfacine HCl (Guanfacine Hcl Er 2 Mg Tab.Er.24h) 4 mg PO BEDTIME [facility] Last Admin: 10/09/22 21:02 Dose: 4 mg Documented By: JAKE Piperacillin Sod/Tazobactam (Sod 4.5 gm/ Sodium Chloride) 100 mls @ 200 mls/hr IV Q6H [facility] Last Infusion: 10/10/22 06:34 Dose: 0 mls/hr Documented By: JAKE Lorazepam (Lorazepam 1 Mg Tablet) 2 mg PO BID PRN PRN Reason: Anxiety Last Admin: 10/09/22 21:01 Dose: 2 mg Documented By: JAKE Melatonin (Melatonin 3 Mg Tablet) 6 mg PO BEDTIME PRN PRN Reason: Insomnia Morphine Sulfate (Morphine Sulfate 4 Mg/Ml Cartridge) 4 mg IVPUSH Q4H PRN; Protocol PRN Reason: Pain, Severe (Pain Scale 7-10) Last Admin: 10/10/22 05:55 Dose: 4 mg Documented By: NERIS Ondansetron HCl (Ondansetron Hcl 4 Mg/2 Ml Vial) 4 mg IVPUSH Q8H PRN PRN Reason: Nausea and Vomiting Pharmacy Consult (Consult Rx Perform Med Rec) 1 each MISCELLANE ONCE PRN PRN Reason: Consult order Propranolol HCl (Propranolol Hcl La 80 Mg Cap.Sa.24h) 160 mg PO DAILY [facility]ATT[facility]; Protocol Last Admin: 10/10/22 07:53 Dose: 160 mg Documented By: ALCIDES Quetiapine Fumarate (Quetiapine Fumarate 400 Mg Tablet) 800 mg PO BEDTIME [facility] Last Admin: 10/09/22 21:02 Dose: 800 mg Documented By: JAKE Sodium Chloride (0.9 % Sodium Chloride Flush 3 Ml Syringe) 3 ml IVFLUSH QSHIFT [facility] Last Admin: 10/10/22 07:53 Dose: 3 ml Documented By: ALCIDES Labs CBC & Chem 7: 10/10/22 05:48 10/10/22 05:48 Labs: Laboratory Results - last 24 hr 10/10/22 10/10/22 05:48 05:48 MCV 92.8 MCH 29.1 MCHC 31.4 RDW 14.3 Plt Count 203 MPV 10.3 Immature Gran % (Auto) 0.2 Neut % (Auto) 30.8 L Lymph % (Auto) 48.1 H [place] % (Auto) 9.4 Eos % (Auto) 11.1 H Baso % (Auto) 0.4 Lymph # (Auto) 4.3 [place] # (Auto) 0.8 Eos # (Auto) 1.0 H Baso # (Auto) 0.0 Abs Immat Gran (auto) 0.02 Absolute Neuts (auto) 2.7 Absolute Nucleated RBC 0.000 Nucleated RBC % (auto) 0.0 Anion Gap 18 Estim Creat Clear Calc 191.3 Estimated GFR > 60 Fasting Glucose 83 Calcium 9.6 Total Bilirubin 0.5 AST 43 H ALT 49 H Alkaline Phosphatase 112 C-Reactive Protein 0.72 H Total Protein 7.5 Albumin 3.9 Assessment and Plan (1) Abdominal pain: Status: Acute Plan d#2 21yo M resident with XXY, PNES admitted for RLQ pain with initial concern for acute appendicitis # RUQ pain - per Surgery very much doubt appendicitis. advance diet and monitor clinically. # PNES - witnessed in ED, not consistent with epileptic sz per ED provider # mood disorder - continue propranolol, chlorpromazime, divalproex, guanfacine, quetiapine # morbid obesity - diet/exercise counseling # VTE ppx: SCDs In my clinical judgment, the patient requires continued inpatient hospitalization for the following reasons: serial abd exams Quality Stroke Does the patient have a stroke diagnosis?: No VTE Prior VTE?: No VTE Risk Level:: Medical - moderate - high VTE Device Contraindication: Treatment Not Indicated VTE Drug Contraindication: Treatment Not Indicated
[2022-10-10 11:51] VITALS: BP 115/57; PULSE 73; RESP 18; TEMP 36; O2SAT 94
[2022-10-10 15:14] VITALS: BP 98/56; PULSE 80; RESP 19; TEMP 36.6; O2SAT 94
[2022-10-10 19:53] VITALS: BP 107/58; PULSE 76; RESP 19; TEMP 36.7; O2SAT 96
[2022-10-10] MEDS: QUEtiapine Fumarate 400 MG TABLET 800 MG PO (20:03)
[2022-10-10] MEDS: guanFACINE HCl ER 2 MG TAB.ER.24H 4 MG PO (20:03)
[2022-10-10] MEDS: Divalproex Sodium 500 MG TABLET.DR 2000 MG PO (20:03)
[2022-10-10] MEDS: LORazepam 1 MG TABLET 2 MG PO (22:26)
[2022-10-10] MEDS: ondansetron HCL 4 MG/2 ML VIAL IVPUSH (22:26)
[2022-10-11] VITALS (7 sets, daily range): BP systolic 98–124; BP diastolic 51–74; PULSE 72–86; RESP 17–19; TEMP 36–36.8; O2SAT 92–98
[2022-10-11] MEDS: Piperacillin Sodium/Tazobactam 4.5 GM in 0.9 % Sodium Chloride 100 ML IV ×5 (00:47→23:53)
[2022-10-11] MEDS: Morphine Sulfate 4 MG/ML CARTRIDGE IVPUSH (05:48)
--- NOTE | 2022-10-11 07:13 | PC.NURSE ---
[facility] staff numbers- Willam- [phone] Reji- [phone]
--- NOTE | 2022-10-11 08:19 | P.PNGS_ITS ---
Subjective Subjective Date of Service: 10/12/22 Interval history: says he feels the same states he still has the same abdl pain not worsening no N/V no fever Physical Exam Vital Signs: Vital Signs: Last Vital Signs Temp 96.8 F 10/11/22 07:27 Pulse 73 10/11/22 07:27 Resp 18 10/11/22 07:27 BP 98/59 L 10/11/22 07:27 Pulse Ox 94 10/11/22 07:27 O2 Del Method 10/11/22 07:27 O2 Flow Rate 2 10/11/22 04:00 BMI result Body Mass Index 47.4 Const: General: comfortable and no acute distress Resp: Effort & Inspection: normal respiratory effort GI: Other: very obese, soft, says he has tenderness more on right side Objective Data Active Medications Acetaminophen (Acetaminophen 325 Mg Tablet) 650 mg PO Q6H PRN PRN Reason: Pain, Mild (Pain Scale 1-3) Last Admin: 10/09/22 12:05 Dose: 650 mg Documented By: GERARD Chlorpromazine HCl (Chlorpromazine Hcl 25 Mg Tablet) 25 mg PO TID [facility] Last Admin: 10/10/22 20:03 Dose: 25 mg Documented By: JAKE Divalproex Sodium (Divalproex Sodium 500 Mg Tablet.) 2,000 mg PO BEDTIME [facility] Last Admin: 10/10/22 20:03 Dose: 2,000 mg Documented By: JAKE Guanfacine HCl (Guanfacine Hcl Er 2 Mg Tab.Er.24h) 4 mg PO BEDTIME [facility] Last Admin: 10/10/22 20:03 Dose: 4 mg Documented By: JAKE Piperacillin Sod/Tazobactam (Sod 4.5 gm/ Sodium Chloride) 100 mls @ 200 mls/hr IV Q6H [facility] Last Infusion: 10/11/22 06:26 Dose: 0 mls/hr Documented By: JAKE Lorazepam (Lorazepam 1 Mg Tablet) 2 mg PO BID PRN PRN Reason: Anxiety Last Admin: 10/10/22 22:26 Dose: 2 mg Documented By: JAKE Melatonin (Melatonin 3 Mg Tablet) 6 mg PO BEDTIME PRN PRN Reason: Insomnia Morphine Sulfate (Morphine Sulfate 4 Mg/Ml Cartridge) 4 mg IVPUSH Q4H PRN; Protocol PRN Reason: Pain, Severe (Pain Scale 7-10) Last Admin: 10/11/22 05:48 Dose: 4 mg Documented By: JAKE Ondansetron HCl (Ondansetron Hcl 4 Mg/2 Ml Vial) 4 mg IVPUSH Q8H PRN PRN Reason: Nausea and Vomiting Last Admin: 10/10/22 22:26 Dose: 4 mg Documented By: JAKE Pharmacy Consult (Consult Rx Perform Med Rec) 1 each MISCELLANE ONCE PRN PRN Reason: Consult order Propranolol HCl (Propranolol Hcl La 80 Mg Cap.Sa.24h) 160 mg PO DAILY KATTY; Protocol Last Admin: 10/10/22 07:53 Dose: 160 mg Documented By: ALCIDES Quetiapine Fumarate (Quetiapine Fumarate 400 Mg Tablet) 800 mg PO BEDTIME [facility] Last Admin: 10/10/22 20:03 Dose: 800 mg Documented By: JAKE Sodium Chloride (0.9 % Sodium Chloride Flush 3 Ml Syringe) 3 ml IVFLUSH QSHIFT COUNT [facility] Last Admin: 10/10/22 19:15 Dose: 3 ml Documented By: JAKE Labs CBC & Chem 7: 10/12/22 05:29 10/10/22 05:48 Labs: Laboratory Results - last 24 hr 10/10/22 05:48 C-Reactive Protein 0.72 H Procedures Date of Service Date of Service: 10/11/22 Progress Note: A&P Assessment and plan (1) Abdominal pain: Status: Acute Assessment and Plan: seems chronic in nature exam remains benign overall clinically not c/w acute appendicitis advance diet as tolerated will continue to follow Time Spent With Patient Time: Total time spent is greater than 50% in coordination of care (as documented) at patient's floor/unit and/or counseling patient: Quality Stroke Does the patient have a stroke diagnosis?: No VTE Prior VTE?: No VTE Risk Level:: Medical - moderate - high VTE Device Contraindication: Treatment Not Indicated VTE Drug Contraindication: Treatment Not Indicated
[2022-10-11] MEDS: Acetaminophen 325 MG TABLET 650 MG PO ×2 (08:32→15:04)
[2022-10-11] MEDS: chlorproMAZINE HCl 25 MG TABLET PO ×3 (08:32→19:42)
[2022-10-11] MEDS: 0.9 % Sodium Chloride Flush 3 ML SYRINGE IVFLUSH ×3 (08:33→19:44)
[2022-10-11] MEDS: ondansetron HCL 4 MG/2 ML VIAL IVPUSH ×2 (08:33→23:53)
[2022-10-11] MEDS: LORazepam 1 MG TABLET 2 MG PO (08:33)
--- NOTE | 2022-10-11 10:55 | HO.PM.IMPN ---
Subjective Subjective Date of Service: 10/11/22 Interval History: c/o ongoing abd pain and nausea states no BM since 10/06 Review of Systems Review of Systems: Yes all other systems are reviewed and are negative Physical Exam Vital Signs: Vital Signs: Last Vital Signs Temp 96.8 F 10/11/22 07:27 Pulse 73 10/11/22 07:27 Resp 18 10/11/22 07:27 BP 98/59 L 10/11/22 07:27 Pulse Ox 94 10/11/22 07:27 O2 Del Method 10/11/22 07:27 O2 Flow Rate 2 10/11/22 04:00 BMI result Body Mass Index 47.4 Gen: in no acute distress HEENT: sclera anicteric, moist mucus membranes Neck: supple Lungs: clear to auscultation bilaterally Heart: regular rate and rhythm, no murmurs Abd: soft, obese, RLQ tenderness without rebound Ext: no edema Skin: warm/well-perfused Neuro: alert and oriented x3, no focal findings Psych: appropriate affect Objective Data Active Medications Acetaminophen (Acetaminophen 325 Mg Tablet) 650 mg PO Q6H PRN PRN Reason: Pain, Mild (Pain Scale 1-3) Last Admin: 10/11/22 08:32 Dose: 650 mg Documented By: KOMAL Chlorpromazine HCl (Chlorpromazine Hcl 25 Mg Tablet) 25 mg PO TID [facility] Last Admin: 10/11/22 08:32 Dose: 25 mg Documented By: KOMAL Divalproex Sodium (Divalproex Sodium 500 Mg Tablet.) 2,000 mg PO BEDTIME [facility] Last Admin: 10/10/22 20:03 Dose: 2,000 mg Documented By: JAKE Guanfacine HCl (Guanfacine Hcl Er 2 Mg Tab.Er.24h) 4 mg PO BEDTIME KATTY Last Admin: 10/10/22 20:03 Dose: 4 mg Documented By: JAKE Piperacillin Sod/Tazobactam (Sod 4.5 gm/ Sodium Chloride) 100 mls @ 200 mls/hr IV Q6H [facility] Last Infusion: 10/11/22 06:26 Dose: 0 mls/hr Documented By: JAKE Lorazepam (Lorazepam 1 Mg Tablet) 2 mg PO BID PRN PRN Reason: Anxiety Last Admin: 10/11/22 08:33 Dose: 2 mg Documented By: KOMAL Melatonin (Melatonin 3 Mg Tablet) 6 mg PO BEDTIME PRN PRN Reason: Insomnia Morphine Sulfate (Morphine Sulfate 4 Mg/Ml Cartridge) 4 mg IVPUSH Q4H PRN; Protocol PRN Reason: Pain, Severe (Pain Scale 7-10) Last Admin: 10/11/22 05:48 Dose: 4 mg Documented By: JKAE Ondansetron HCl (Ondansetron Hcl 4 Mg/2 Ml Vial) 4 mg IVPUSH Q8H PRN PRN Reason: Nausea and Vomiting Last Admin: 10/11/22 08:33 Dose: 4 mg Documented By: KOMAL Pharmacy Consult (Consult Rx Perform Med Rec) 1 each MISCELLANE ONCE PRN PRN Reason: Consult order Polyethylene Glycol (Polyethylene Glycol 3350 17 Gm Powd.Pack) 17 gm PO DAILY KATTY Propranolol HCl (Propranolol Hcl La 80 Mg Cap.Sa.24h) 160 mg PO DAILY KATTY; Protocol Last Admin: 10/11/22 08:35 Dose: Not Given Documented By: KOMAL Non-Admin Reason: Decreased Blood Pressure Quetiapine Fumarate (Quetiapine Fumarate 400 Mg Tablet) 800 mg PO BEDTIME KATTY Last Admin: 10/10/22 20:03 Dose: 800 mg Documented By: JAKE Senna/Docusate Sodium (Sennosides/Docusate Sodium Tablet) 2 tab PO BID KATTY Sodium Chloride (0.9 % Sodium Chloride Flush 3 Ml Syringe) 3 ml IVFLUSH QSHIFT KATTY Last Admin: 10/11/22 08:33 Dose: 3 ml Documented By: KOMAL Labs CBC & Chem 7: 10/10/22 05:48 10/10/22 05:48 Assessment and Plan (1) Abdominal pain: Status: Acute Plan d#3 21yo M resident with XXY, PNES admitted for RLQ pain with initial concern for acute appendicitis # RUQ pain - per Surgery very much doubt appendicitis. advance diet and monitor clinically. recheck CBCd/CRP in AM. per mother pt had similar admission to [facility] last year- will request records. will give bowel regimen # PNES - witnessed in ED, not consistent with epileptic sz per ED provider # mood disorder - continue propranolol, chlorpromazime, divalproex, guanfacine, quetiapine # morbid obesity - diet/exercise counseling # VTE ppx: SCDs In my clinical judgment, the patient requires continued inpatient hospitalization for the following reasons: serial abd exams Quality Stroke Does the patient have a stroke diagnosis?: No VTE Prior VTE?: No VTE Risk Level:: Medical - moderate - high VTE Device Contraindication: Treatment Not Indicated VTE Drug Contraindication: Treatment Not Indicated
[2022-10-11] MEDS: Sennosides/Docusate Sodium TABLET 2 TAB PO ×2 (11:55→19:43)
[2022-10-11] MEDS: polyethylene glycoL 3350 17 GM POWD.PACK PO (11:56)
--- NOTE | 2022-10-11 14:42 | MHC.CM.PN ---
EMR REVIEWED, PER SURGICAL NOTE DIET ADVANCING, NO PLAN FOR D/C TODAY, CM WILL CONT TO FOLLOW AND PLAN FOR PT TO RETURN TO ONCE CLEARED.
[2022-10-11] MEDS: Divalproex Sodium 500 MG TABLET.DR 2000 MG PO (19:42)
[2022-10-11] MEDS: guanFACINE HCl ER 2 MG TAB.ER.24H 4 MG PO (19:42)
[2022-10-11] MEDS: QUEtiapine Fumarate 400 MG TABLET 800 MG PO (19:43)
[2022-10-12] VITALS (7 sets, daily range): BP systolic 110–126; BP diastolic 46–61; PULSE 70–86; RESP 17–18; TEMP 36.1–36.6; O2SAT 89–95
[2022-10-12] MEDS: Piperacillin Sodium/Tazobactam 4.5 GM in 0.9 % Sodium Chloride 100 ML IV ×3 (05:52→18:02)
[2022-10-12 06:22] LABS: Hematocrit 39.2 % (42.0-52.0); Hemoglobin 12.4 g/dl (14.0-18.0); Mean Corpuscular HGB Conc 31.6 g/dl (31.0-36.0); Mean Corpuscular Hemoglobin 29.5 pg (27.0-33.0); Mean Corpuscular Volume 93.1 fL (80.0-98.0); Mean Platelet Volume 10.4 fL (9.4-12.4); Platelet Count 197 X10*3/uL (160-400); Red Blood Count 4.21 X10*6/uL (4.60-5.80); Red Cell Distribution Width 13.5 % (11.0-16.0); White Blood Count 9.1 X10*3/uL (4.8-10.8)
--- NOTE | 2022-10-12 07:48 | PM.PNGS ---
Subjective Subjective Date of Service: 10/12/22 Interval history: asleep does not seem to react with deep palpation of left abdomen as per nursing staff - did not complain of abdl pain overnight ate a lot for dinner, had some emesis reported but was ok the rest of the night Physical Exam Vital Signs: Vital Signs: Last Vital Signs Temp 96.9 F 10/12/22 03:07 Pulse 70 10/12/22 03:07 Resp 17 10/12/22 03:07 BP 126/60 10/12/22 03:07 Pulse Ox 95 10/12/22 03:07 O2 Del Method 10/12/22 03:07 O2 Flow Rate 2.0 10/11/22 19:56 BMI result Body Mass Index 47.4 Const: Other: morbidly obese General: comfortable and no acute distress Resp: Effort & Inspection: normal respiratory effort Cardio: Rate: regular rate GI: Palpation (GI): Soft to palpation, not firm and no guarding Objective Data Active Medications Acetaminophen (Acetaminophen 325 Mg Tablet) 650 mg PO Q6H PRN PRN Reason: Pain, Mild (Pain Scale 1-3) Last Admin: 10/11/22 15:04 Dose: 650 mg Documented By: KOMAL Chlorpromazine HCl (Chlorpromazine Hcl 25 Mg Tablet) 25 mg PO TID [facility] Last Admin: 10/11/22 19:42 Dose: 25 mg Documented By: ELIDA Divalproex Sodium (Divalproex Sodium 500 Mg Tablet.Dr) 2,000 mg PO BEDTIME [facility] Last Admin: 10/11/22 19:42 Dose: 2,000 mg Documented By: ELIDA Guanfacine HCl (Guanfacine Hcl Er 2 Mg Tab.Er.24h) 4 mg PO BEDTIME KATTY Last Admin: 10/11/22 19:42 Dose: 4 mg Documented By: ELIDA Piperacillin Sod/Tazobactam (Sod 4.5 gm/ Sodium Chloride) 100 mls @ 200 mls/hr IV Q6H [facility] Last Infusion: 10/12/22 06:44 Dose: 0 mls/hr Documented By: ELIDA Lorazepam (Lorazepam 1 Mg Tablet) 2 mg PO BID PRN PRN Reason: Anxiety Last Admin: 10/11/22 08:33 Dose: 2 mg Documented By: KOMAL Melatonin (Melatonin 3 Mg Tablet) 6 mg PO BEDTIME PRN PRN Reason: Insomnia Morphine Sulfate (Morphine Sulfate 4 Mg/Ml Cartridge) 4 mg IVPUSH Q4H PRN; Protocol PRN Reason: Pain, Severe (Pain Scale 7-10) Last Admin: 10/11/22 05:48 Dose: 4 mg Documented By: JAKE Ondansetron HCl (Ondansetron Hcl 4 Mg/2 Ml Vial) 4 mg IVPUSH Q8H PRN PRN Reason: Nausea and Vomiting Last Admin: 10/11/22 23:53 Dose: 4 mg Documented By: ELIDA Pharmacy Consult (Consult Rx Perform Med Rec) 1 each MISCELLANE ONCE PRN PRN Reason: Consult order Polyethylene Glycol (Polyethylene Glycol 3350 17 Gm Powd.Pack) 17 gm PO DAILY [facility] Last Admin: 10/11/22 11:56 Dose: 17 gm Documented By: KOMAL Propranolol HCl (Propranolol Hcl La 80 Mg Cap.Sa.24h) 160 mg PO DAILY [facility]; Protocol Last Admin: 10/11/22 08:35 Dose: Not Given Documented By: KOMAL Non-Admin Reason: Decreased Blood Pressure Quetiapine Fumarate (Quetiapine Fumarate 400 Mg Tablet) 800 mg PO BEDTIME [facility] Last Admin: 10/11/22 19:43 Dose: 800 mg Documented By: ELIDA Senna/Docusate Sodium (Sennosides/Docusate Sodium Tablet) 2 tab PO BID [facility] Last Admin: 10/11/22 19:43 Dose: 2 tab Documented By: ELIDA Sodium Chloride (0.9 % Sodium Chloride Flush 3 Ml Syringe) 3 ml IVFLUSH QSHIFT [facility] Last Admin: 10/11/22 19:44 Dose: 3 ml Documented By: ELIDA Labs CBC & Chem 7: 10/12/22 05:29 10/10/22 05:48 Labs: Laboratory Results - last 24 hr 10/12/22 10/12/22 05:29 05:29 MCV 93.1 MCH 29.5 MCHC 31.6 RDW 13.5 Plt Count 197 MPV 10.4 Absolute Nucleated RBC 0.000 Nucleated RBC % (auto) 0.0 C-Reactive Protein 0.70 H Procedures Date of Service Date of Service: 10/12/22 Progress Note: A&P Assessment and plan (1) Abdominal pain: Status: Acute Assessment and Plan: clinical picture not c/w acute appendicitis abd remains very soft no fever or leukocytosis pt also a poor historian diet as tolerated symptom relief for now - as per nurse, he had not complained of abdl pain overnight Hospitalist service was able to retrieve old electronic health records from [place] - he had previous appendectomy Time Spent With Patient Time: Total time spent is greater than 50% in coordination of care (as documented) at patient's floor/unit and/or counseling patient: Quality Stroke Does the patient have a stroke diagnosis?: No VTE Prior VTE?: No VTE Risk Level:: Medical - moderate - high VTE Device Contraindication: Treatment Not Indicated VTE Drug Contraindication: Treatment Not Indicated
[2022-10-12] MEDS: Propranolol HCL LA 80 MG CAP.SA.24H 160 MG PO (09:02)
[2022-10-12] MEDS: chlorproMAZINE HCl 25 MG TABLET PO ×3 (09:02→20:37)
[2022-10-12] MEDS: Sennosides/Docusate Sodium TABLET 2 TAB PO ×2 (09:03→20:37)
[2022-10-12] MEDS: polyethylene glycoL 3350 17 GM POWD.PACK PO (09:03)
[2022-10-12] MEDS: 0.9 % Sodium Chloride Flush 3 ML SYRINGE IVFLUSH ×3 (09:03→20:34)
--- NOTE | 2022-10-12 09:30 | PC.NURSE ---
Assumed care of patient at this time.
--- NOTE | 2022-10-12 11:46 | P.PNIM_ITS ---
Subjective Subjective Date of Service: 10/12/22 Interval History: large BM overnight pt c/o unchanged abd pain, RLQ>RUQ>LLQ vomited last night but had eaten 4 hamburgers Review of Systems Review of Systems: Yes all other systems are reviewed and are negative Physical Exam Vital Signs: Vital Signs: Last Vital Signs Temp 97.9 F 10/12/22 07:58 Pulse 74 10/12/22 07:58 Resp 18 10/12/22 07:58 BP 125/46 L 10/12/22 07:58 Pulse Ox 93 10/12/22 07:58 O2 Del Method 10/12/22 07:58 O2 Flow Rate 2.0 10/11/22 19:56 BMI result Body Mass Index 47.4 Gen: in no acute distress HEENT: sclera anicteric, moist mucus membranes Neck: supple Lungs: clear to auscultation bilaterally Heart: regular rate and rhythm, no murmurs Abd: soft, obese, RLQ tenderness without rebound Ext: no edema Skin: warm/well-perfused Neuro: alert and oriented x3, no focal findings Psych: appropriate affect Objective Data Active Medications Acetaminophen (Acetaminophen 325 Mg Tablet) 650 mg PO Q6H PRN PRN Reason: Pain, Mild (Pain Scale 1-3) Last Admin: 10/11/22 15:04 Dose: 650 mg Documented By: KOMAL Chlorpromazine HCl (Chlorpromazine Hcl 25 Mg Tablet) 25 mg PO TID [facility] Last Admin: 10/12/22 09:02 Dose: 25 mg Documented By: KODI Divalproex Sodium (Divalproex Sodium 500 Mg Tablet.) 2,000 mg PO BEDTIME [facility] Last Admin: 10/11/22 19:42 Dose: 2,000 mg Documented By: ELIDA Guanfacine HCl (Guanfacine Hcl Er 2 Mg Tab.Er.24h) 4 mg PO BEDTIME [facility] Last Admin: 10/11/22 19:42 Dose: 4 mg Documented By: ELIDA Piperacillin Sod/Tazobactam (Sod 4.5 gm/ Sodium Chloride) 100 mls @ 200 mls/hr IV Q6H [facility] Last Infusion: 10/12/22 06:44 Dose: 0 mls/hr Documented By: ELIDA Lorazepam (Lorazepam 1 Mg Tablet) 2 mg PO BID PRN PRN Reason: Anxiety Last Admin: 10/11/22 08:33 Dose: 2 mg Documented By: KOMAL Melatonin (Melatonin 3 Mg Tablet) 6 mg PO BEDTIME PRN PRN Reason: Insomnia Morphine Sulfate (Morphine Sulfate 4 Mg/Ml Cartridge) 4 mg IVPUSH Q4H PRN; Protocol PRN Reason: Pain, Severe (Pain Scale 7-10) Last Admin: 10/11/22 05:48 Dose: 4 mg Documented By: JAKE Ondansetron HCl (Ondansetron Hcl 4 Mg/2 Ml Vial) 4 mg IVPUSH Q8H PRN PRN Reason: Nausea and Vomiting Last Admin: 10/11/22 23:53 Dose: 4 mg Documented By: ELIDA Pharmacy Consult (Consult Rx Perform Med Rec) 1 each MISCELLANE ONCE PRN PRN Reason: Consult order Polyethylene Glycol (Polyethylene Glycol 3350 17 Gm Powd.Pack) 17 gm PO DAILY [facility] Last Admin: 10/12/22 09:03 Dose: 17 gm Documented By: KODI Propranolol HCl (Propranolol Hcl La 80 Mg Cap.Sa.24h) 160 mg PO DAILY KATTY; Protocol Last Admin: 10/12/22 09:02 Dose: 160 mg Documented By: KODI Quetiapine Fumarate (Quetiapine Fumarate 400 Mg Tablet) 800 mg PO BEDTIME KATTY Last Admin: 10/11/22 19:43 Dose: 800 mg Documented By: ELIDA Senna/Docusate Sodium (Sennosides/Docusate Sodium Tablet) 2 tab PO BID [facility] Last Admin: 10/12/22 09:03 Dose: 2 tab Documented By: KODI Sodium Chloride (0.9 % Sodium Chloride Flush 3 Ml Syringe) 3 ml IVFLUSH QSHIFT [facility] Last Admin: 10/12/22 09:03 Dose: 3 ml Documented By: KODI Labs CBC & Chem 7: 10/12/22 05:29 10/10/22 05:48 Labs: Laboratory Results - last 24 hr 10/12/22 10/12/22 05:29 05:29 MCV 93.1 MCH 29.5 MCHC 31.6 RDW 13.5 Plt Count 197 MPV 10.4 Absolute Nucleated RBC 0.000 Nucleated RBC % (auto) 0.0 C-Reactive Protein 0.70 H Assessment and Plan (1) Abdominal pain: Status: Acute Plan d#4 21yo M resident with XXY, PNES admitted for RLQ pain with initial concern for acute appendicitis # RUQ pain - per Surgery very much doubt appendicitis. no fever or leukocytosis and CRP is not elevated. per mother pt had similar admission to [facility] last year- will request records. GI consultation- IBS? # PNES - witnessed in ED, not consistent with epileptic sz per ED provider # mood disorder - continue propranolol, chlorpromazime, divalproex, guanfacine, quetiapine # morbid obesity - diet/exercise counseling # VTE ppx: SCDs In my clinical judgment, the patient requires continued inpatient hospitalization for the following reasons: serial abd exams Quality Stroke Does the patient have a stroke diagnosis?: No VTE Prior VTE?: No VTE Risk Level:: Medical - moderate - high VTE Device Contraindication: Treatment Not Indicated VTE Drug Contraindication: Treatment Not Indicated
--- NOTE | 2022-10-12 12:44 | MHC.CM.PN ---
EMR REVIEWED, CM RECEIVED CALL FROM PT'S GH CR[facility] FISHERMAN JUAN JOSE ORTEZ UPDATED ON PLAN FOR HOSPITALIST TO CONSULT W/GI AND RETRIEVE RECORDS FROM [facility]. JUAN JOSE REPORTS SHE PT WAS AT [facility] IN MARCH OF 2021 AND HAD APPENDIX SURGERY , INFO RELAYED TO HOSPITALIST VIA [employer]. JUAN JOSE AWARE PT MAY BE CLEARED FOR D/C TOMORROW 10/13 AND CM WILL FOLLOW-UP W/HER IN AM.
[2022-10-12] MEDS: ondansetron HCL 4 MG/2 ML VIAL IVPUSH ×2 (12:52→20:34)
[2022-10-12] MEDS: Acetaminophen 325 MG TABLET 650 MG PO ×2 (12:53→20:37)
--- NOTE | 2022-10-12 14:42 | PM.GICN ---
History of Present Illness Data of Consult Service Date: 10/12/22 Requesting physician: Luciana Cheatham Primary Care Provider: Unknown Physician HPI Reason for consult: abdominal pain 21-year-old with history of XXYY syndrome (Klinefelter variant), intellectual developmental disorder, psychogenic nonepileptic seizure, who I am seeing for assessment for abdominal pain. he has had 1 week of progresssively worsening RLQ pain and discomfort without radiation with poor appetite associated with diarrheal stools and some blood noted today,denies chest pain, palpitations, shortness of breath, changes in urinary habits. HE denies antibiotics in last few months or sick contacts. Ct scan with possible appendicitis due to fluid around mesentry near where appendix would be expected. but evaluated by surgery and felt not to be the case as patient thought to have had appenidx removed elsewhere before hand Review of Systems Review of Systems: Constitutional : No Weight loss, No Fever, No Chills ENT/Mouth : No sore throat, No Rhinorrhea Eyes: No Swelling, No Redness Cardiovascular : No Chest Pain, No SOB, No Edema Respiratory : No Cough, No Sputum, No Wheezing Gastrointestinal : see HPI Genitourinary : NO Dysuria, No Urinary Frequency, No Hematuria, No Urgency Musculoskeletal : No joint pain, No Myalgias, No Joint Swelling Skin : No Skin Lesions, No rash Neuro : No Weakness, No Numbness, No Dizziness, No Headache Psych : No Anxiety/Panic, No Depression Heme/Lymph: No Bruising, No Lymphadenopathy Endocrine : No Polyuria, No Polydipsia All other systems reviewed and are negative. [facility] Past Medical History Medical History Adjustment disorder Chronic abdominal pain Developmental disability Dyspnea Seborrheic dermatitis Seizures XXYY syndrome Family History Family History Father No problems noted. Mother Hypertension Diabetes Other History of brain cancer Surgical History Surgical History History of testicular surgery Social History Social History Household Members: Other Household Members Other:: [facility] Housing: Other Do you presently have visiting nurse or other home services: No Alcohol intake: never Patient Tobacco Use Status: Never used Tobacco Tobacco use type: Cigarette Years Smoked: 16 years old e-Cigarette/Vaping Use: Never Used Second Hand Smoke Exposure: No Substance Use Type: Crack/Cocaine and Marijuana service: No Current occupational status: disabled Cognitive needs: Yes Hearing needs: No Vision needs: No Meds Allergies Allergy/AdvReac Type Severity Reaction Status Date / Time methylphenidate Allergy Unknown UNKNOWN Verified 08/11/22 14:43 [From RITALIN] shrimp [SHRIMP] Allergy Unknown HIVES Verified 08/11/22 14:43 haloperidol [From Haldol] Allergy Involuntary Verified 08/11/22 14:43 Spasms Active Medications: Current Medications Acetaminophen (Acetaminophen 325 Mg Tablet) 650 mg PO Q6H PRN PRN Reason: Pain, Mild (Pain Scale 1-3) Last Admin: 10/12/22 12:53 Dose: 650 mg Chlorpromazine HCl (Chlorpromazine Hcl 25 Mg Tablet) 25 mg PO TID KATTY Last Admin: 10/12/22 14:10 Dose: 25 mg Divalproex Sodium (Divalproex Sodium 500 Mg Tablet.Dr) 2,000 mg PO BEDTIME KATTY Last Admin: 10/11/22 19:42 Dose: 2,000 mg Guanfacine HCl (Guanfacine Hcl Er 2 Mg Tab.Er.24h) 4 mg PO BEDTIME KATTY Last Admin: 10/11/22 19:42 Dose: 4 mg Piperacillin Sod/Tazobactam (Sod 4.5 gm/ Sodium Chloride) 100 mls @ 200 mls/hr IV Q6H KATTY Last Infusion: 10/12/22 13:49 Dose: Infused Lorazepam (Lorazepam 1 Mg Tablet) 2 mg PO BID PRN PRN Reason: Anxiety Last Admin: 10/11/22 08:33 Dose: 2 mg Melatonin (Melatonin 3 Mg Tablet) 6 mg PO BEDTIME PRN PRN Reason: Insomnia Morphine Sulfate (Morphine Sulfate 4 Mg/Ml Cartridge) 4 mg IVPUSH Q4H PRN; Protocol PRN Reason: Pain, Severe (Pain Scale 7-10) Last Admin: 10/11/22 05:48 Dose: 4 mg Ondansetron HCl (Ondansetron Hcl 4 Mg/2 Ml Vial) 4 mg IVPUSH Q8H PRN PRN Reason: Nausea and Vomiting Last Admin: 10/12/22 12:52 Dose: 4 mg Pharmacy Consult (Consult Rx Perform Med Rec) 1 each MISCELLANE ONCE PRN PRN Reason: Consult order Polyethylene Glycol (Polyethylene Glycol 3350 17 Gm Powd.Pack) 17 gm PO DAILY [facility] Last Admin: 10/12/22 09:03 Dose: 17 gm Propranolol HCl (Propranolol Hcl La 80 Mg Cap.Sa.24h) 160 mg PO DAILY [facility]; Protocol Last Admin: 10/12/22 09:02 Dose: 160 mg Quetiapine Fumarate (Quetiapine Fumarate 400 Mg Tablet) 800 mg PO BEDTIME [facility] Last Admin: 10/11/22 19:43 Dose: 800 mg Senna/Docusate Sodium (Sennosides/Docusate Sodium Tablet) 2 tab PO BID [facility] Last Admin: 10/12/22 09:03 Dose: 2 tab Sodium Chloride (0.9 % Sodium Chloride Flush 3 Ml Syringe) 3 ml IVFLUSH QSHIFT [facility] Last Admin: 10/12/22 14:10 Dose: 3 ml Home Medications Medication Instructions Recorded Confirmed Last Taken Type divalproex 500 mg tablet,delayed 2,000 mg PO BEDTIME 05/29/22 10/09/22 08/19/22 History release guanfacine 4 mg tablet,extended 4 mg PO BEDTIME 05/29/22 10/09/22 08/19/22 History release 24 hr melatonin 3 mg tablet 3 mg PO BEDTIME 05/29/22 10/09/22 08/19/22 History propranolol 160 mg capsule,24 160 mg PO DAILY 05/29/22 10/09/22 08/20/22 History hr,extended release quetiapine 400 mg tablet 2 tab PO BEDTIME 05/29/22 10/09/22 08/19/22 History chlorpromazine 25 mg tablet 25 mg PO TID 08/20/22 10/09/22 08/20/22 History lorazepam 2 mg tablet 1 tab PO BID PRN Anxiety 08/20/22 10/09/22 Unknown History Physical Exam Vital Signs: Vital Signs: Last Vital Signs Temp 97.1 F 10/12/22 12:00 Pulse 86 10/12/22 12:00 Resp 18 10/12/22 12:00 BP 123/56 L 10/12/22 12:00 Pulse Ox 94 10/12/22 12:00 O2 Del Method 10/12/22 12:00 O2 Flow Rate 2.0 10/11/22 19:56 BMI result Body Mass Index 47.4 EXAM: GENERAL: The patient is obese VITAL SIGNS:see workflow HEENT: Nonicteric sclerae, PERRLA, EOMI. Oropharynx clear. Moist mucous membranes. Conjunctivae appear well perfused. No thyroid mass. CHEST: Chest wall is nontender. HEART: Regular rate and rhythm without murmurs. LUNGS: Clear to auscultation bilaterally. ABDOMEN: Soft, positive bowel sounds, tender rlq, no organomegaly.no flank tenderness SKIN: rafa dermatitis noted NEUROLOGIC: Cranial nerves II-XII intact without motor/sensory deficit. Psych: Appearance: disheveled Results Labs CBC & Chem 7: 10/12/22 05:29 10/10/22 05:48 Labs: Short CBC 10/12/22 Range/Units 05:29 WBC 9.1 (4.8-10.8) X10*3/uL Hgb 12.4 L (14.0-18.0) g/dl Hct 39.2 L (42.0-52.0) % Plt Count 197 (160-400) X10*3/uL Imaging CT scan - abdomen: My impression: thickening around TI and ascending colon Assessment and Plan (1) Abdominal pain: Status: Acute Plan 1/ Abdominal pain and mild raised crp with abn CT imaging ddx; infectious enteritis, crohns --chromosomal abnormalities maybe associated with higher risk of IBD and EoE, reflux 2/ abn LFT prob yuan given obesity PLAN: 1/ Ct enterogram 2/ check stool pCR GI panel and c diff 3/ consider empirical flagyl and cipro if ongoing sx 4/ trend LFT if worsening then us liver and liver serologies Procedures Date of Service Date of Service: 10/12/22
[2022-10-12] MEDS: guanFACINE HCl ER 2 MG TAB.ER.24H 4 MG PO (20:35)
[2022-10-12] MEDS: QUEtiapine Fumarate 400 MG TABLET 800 MG PO (20:35)
[2022-10-12] MEDS: Divalproex Sodium 500 MG TABLET.DR 2000 MG PO (20:36)
[2022-10-12] MEDS: Melatonin 3 MG TABLET 6 MG PO (20:37)
[2022-10-12] MEDS: LORazepam 1 MG TABLET 2 MG PO (20:37)
[2022-10-13] VITALS: BP 102/56; PULSE 70; RESP 17; TEMP 36.2; O2SAT 95
[2022-10-13] MEDS: Piperacillin Sodium/Tazobactam 4.5 GM in 0.9 % Sodium Chloride 100 ML IV ×3 (00:15→12:03)
[2022-10-13 03:57] VITALS: BP 118/64; PULSE 58; RESP 17; TEMP 36.7; O2SAT 94
[2022-10-13] MEDS: Acetaminophen 325 MG TABLET 650 MG PO ×2 (05:55→19:55)
[2022-10-13 07:59] VITALS: BP 114/55; PULSE 68; RESP 18; TEMP 36.2; O2SAT 94
[2022-10-13] MEDS: Sennosides/Docusate Sodium TABLET 2 TAB PO (08:27)
[2022-10-13] MEDS: polyethylene glycoL 3350 17 GM POWD.PACK PO (08:27)
[2022-10-13] MEDS: Propranolol HCL LA 80 MG CAP.SA.24H 160 MG PO (08:28)
[2022-10-13] MEDS: LORazepam 1 MG TABLET 2 MG PO ×2 (08:28→19:56)
[2022-10-13] MEDS: chlorproMAZINE HCl 25 MG TABLET PO ×3 (08:28→19:55)
[2022-10-13] MEDS: 0.9 % Sodium Chloride Flush 3 ML SYRINGE IVFLUSH (08:30)
[2022-10-13 09:05] LABS: Alanine Aminotransferase 34 U/L (0-40); Albumin Level 3.7 g/dL (3.5-5.0); Alkaline Phosphatase 100 U/L (39-117); Aspartate Amino Transferase 26 U/L (5-37); Bilirubin Direct 0.2 mg/dL (0.0-0.5); Bilirubin Total 0.3 mg/dL (0.0-1.0); Total Protein 7.2 g/dL (6.5-8.0)
[2022-10-13 11:54] VITALS: BP 120/53; PULSE 81; RESP 18; TEMP 36; O2SAT 94
[2022-10-13] MEDS: iohexoL 350 MG/ML 100 ML INFUS..BTL IV (12:40)
[2022-10-13] MEDS: Sorbitol/Mannit/Xanth Imaging 500 ML LIQUID 1500 ML PO (12:41)
--- NOTE | 2022-10-13 14:32 | HO.PM.IMPN ---
Subjective Subjective Date of Service: 10/13/22 Interval History: c/o ongoing RLQ pain vomited last night Review of Systems Review of Systems: Yes all other systems are reviewed and are negative Physical Exam Vital Signs: Vital Signs: Last Vital Signs Temp 96.8 F 10/13/22 11:54 Pulse 81 10/13/22 11:54 Resp 18 10/13/22 11:54 BP 120/53 L 10/13/22 11:54 Pulse Ox 94 10/13/22 11:54 O2 Del Method 10/13/22 11:54 O2 Flow Rate 2 10/12/22 15:23 BMI result Body Mass Index 47.4 Gen: in no acute distress HEENT: sclera anicteric, moist mucus membranes Neck: supple Lungs: clear to auscultation bilaterally Heart: regular rate and rhythm, no murmurs Abd: soft, obese, RLQ tenderness without rebound Ext: no edema Skin: warm/well-perfused Neuro: alert and oriented x3, no focal findings Psych: appropriate affect ? Objective Data Active Medications Acetaminophen (Acetaminophen 325 Mg Tablet) 650 mg PO Q6H PRN PRN Reason: Pain, Mild (Pain Scale 1-3) Last Admin: 10/13/22 05:55 Dose: 650 mg Documented By: DAREK Chlorpromazine HCl (Chlorpromazine Hcl 25 Mg Tablet) 25 mg PO TID [facility] Last Admin: 10/13/22 08:28 Dose: 25 mg Documented By: TERESSA Divalproex Sodium (Divalproex Sodium 500 Mg Tablet.) 2,000 mg PO BEDTIME [facility] Last Admin: 10/12/22 20:36 Dose: 2,000 mg Documented By: DAREK Guanfacine HCl (Guanfacine Hcl Er 2 Mg Tab.Er.24h) 4 mg PO BEDTIME [facility] Last Admin: 10/12/22 20:35 Dose: 4 mg Documented By: DAREK Piperacillin Sod/Tazobactam (Sod 4.5 gm/ Sodium Chloride) 100 mls @ 200 mls/hr IV Q6H [facility] Last Infusion: 10/13/22 12:41 Dose: 0 mls/hr Documented By: TERESSA Lorazepam (Lorazepam 1 Mg Tablet) 2 mg PO BID PRN PRN Reason: Anxiety Last Admin: 10/13/22 08:28 Dose: 2 mg Documented By: TERESSA Melatonin (Melatonin 3 Mg Tablet) 6 mg PO BEDTIME PRN PRN Reason: Insomnia Last Admin: 10/12/22 20:37 Dose: 6 mg Documented By: DAREK Morphine Sulfate (Morphine Sulfate 4 Mg/Ml Cartridge) 4 mg IVPUSH Q4H PRN; Protocol PRN Reason: Pain, Severe (Pain Scale 7-10) Last Admin: 10/11/22 05:48 Dose: 4 mg Documented By: JAKE Ondansetron HCl (Ondansetron Hcl 4 Mg/2 Ml Vial) 4 mg IVPUSH Q8H PRN PRN Reason: Nausea and Vomiting Last Admin: 10/12/22 20:34 Dose: 4 mg Documented By: DAREK Pharmacy Consult (Consult Rx Perform Med Rec) 1 each MISCELLANE ONCE PRN PRN Reason: Consult order Polyethylene Glycol (Polyethylene Glycol 3350 17 Gm Powd.Pack) 17 gm PO DAILY [facility] Last Admin: 10/13/22 08:27 Dose: 17 gm Documented By: TERESSA Propranolol HCl (Propranolol Hcl La 80 Mg Cap.Sa.24h) 160 mg PO DAILY [facility]; Protocol Last Admin: 10/13/22 08:28 Dose: 160 mg Documented By: TERESSA Quetiapine Fumarate (Quetiapine Fumarate 400 Mg Tablet) 800 mg PO BEDTIME [facility] Last Admin: 10/12/22 20:35 Dose: 800 mg Documented By: DAREK Senna/Docusate Sodium (Sennosides/Docusate Sodium Tablet) 2 tab PO BID [facility] Last Admin: 10/13/22 08:27 Dose: 2 tab Documented By: TERESSA Sodium Chloride (0.9 % Sodium Chloride Flush 3 Ml Syringe) 3 ml IVFLUSH QSHIFT [facility] Last Admin: 10/13/22 08:30 Dose: 3 ml Documented By: TERESSA Labs CBC & Chem 7: 10/12/22 05:29 10/10/22 05:48 Labs: Laboratory Results - last 24 hr 10/13/22 08:26 Total Bilirubin 0.3 Direct Bilirubin 0.2 AST 26 ALT 34 Alkaline Phosphatase 100 Total Protein 7.2 Albumin 3.7 Assessment and Plan (1) Abdominal pain: Status: Acute Plan d#5 21yo M [facility] resident with XXYY syndrome, PNES admitted for RLQ pain with initial concern for acute appendicitis but not # RUQ pain - per Surgery very much doubt appendicitis. no fever or leukocytosis and CRP is not elevated. per mother pt had similar admission to [facility] last year- records have been requested and are pending. per senior care director, pt was admitted to [facility] in [place] last year and had appendix surgery (though pt's father doesn't recall this) - given ongoing severe pain and vomiting, requested GI consultation. CT enterography pending and stool studies ordered # PNES - witnessed in ED, not consistent with epileptic sz per ED provider # mood disorder - continue propranolol, chlorpromazime, divalproex, guanfacine, quetiapine # morbid obesity - diet/exercise counseling # VTE ppx: SCDs In my clinical judgment, the patient requires continued inpatient hospitalization for the following reasons: abd pain, nausea/vomiting Quality Stroke Does the patient have a stroke diagnosis?: No VTE Prior VTE?: No VTE Risk Level:: Medical - moderate - high VTE Device Contraindication: Treatment Not Indicated VTE Drug Contraindication: Treatment Not Indicated
[2022-10-13] MEDS: Ondansetron ODT 4 MG TAB.RAPDIS TRANSLINGU (15:43)
[2022-10-13] MEDS: Lactated Ringers 1,000 ML 100 ML IVCONT (15:46)
[2022-10-13 16:01] VITALS: BP 136/63; PULSE 70; RESP 20; TEMP 36.2; O2SAT 95
[2022-10-13 16:40] LABS: CDiff Gene PCR POSITIVE (Negative)
[2022-10-13 17:45] LABS: CDiff Toxin Positive (Negative)
[2022-10-13 17:46] LABS: CDIFF Internal ctrl Dots and bkg OK (V)
[2022-10-13] MEDS: vancomycin HCL 125 MG CAPSULE 250 MG PO ×2 (18:04→23:42)
[2022-10-13 19:35] VITALS: BP 102/45; PULSE 89; RESP 20; TEMP 36.6; O2SAT 95
[2022-10-13] MEDS: guanFACINE HCl ER 2 MG TAB.ER.24H 4 MG PO (19:55)
[2022-10-13] MEDS: Divalproex Sodium 500 MG TABLET.DR 2000 MG PO (19:55)
[2022-10-13] MEDS: QUEtiapine Fumarate 400 MG TABLET 800 MG PO (19:55)
[2022-10-13] MEDS: Melatonin 3 MG TABLET 6 MG PO (19:56)
[2022-10-14] VITALS: BP 118/72; PULSE 79; RESP 17; TEMP 36.4; O2SAT 93
[2022-10-14 00:18] LABS: Glucose, Whole Blood 151 mg/dL (60-115)
--- NOTE | 2022-10-14 00:28 | PC.NURSE ---
at 2345 rapid response called because pt was unresponsive, VS stable, blood sugar done, Dr. Palacios at bedside and thinks it's psych related. pt did respond after about 10 minutes, stating he was bored.
[2022-10-14 04:00] VITALS: BP 111/62; PULSE 69; RESP 17; TEMP 36.3; O2SAT 95
[2022-10-14] MEDS: vancomycin HCL 125 MG CAPSULE 250 MG PO ×4 (06:10→23:10)
[2022-10-14 07:58] VITALS: BP 106/61; PULSE 74; RESP 18; TEMP 36.3; O2SAT 96
[2022-10-14] MEDS: chlorproMAZINE HCl 25 MG TABLET PO ×3 (08:39→20:30)
[2022-10-14] MEDS: Propranolol HCL LA 80 MG CAP.SA.24H 160 MG PO (08:39)
[2022-10-14] MEDS: LORazepam 1 MG TABLET 2 MG PO (08:39)
[2022-10-14] MEDS: Ondansetron ODT 4 MG TAB.RAPDIS TRANSLINGU ×3 (08:39→15:25)
[2022-10-14 09:40] LABS: Adenovirus F 40/41 Not Detected (Not Detect.); Astrovirus Not Detected (Not Detect.); Campylobacter Not Detected (Not Detect.); Cryptosporidium Not Detected (Not Detect.); Cyclospora cayetanensis Not Detected (Not Detect.); E. coli EAEC Not Detected (Not Detect.); E. coli EPEC Not Detected (Not Detect.); E. coli ETEC Not Detected (Not Detect.); E. coli STEC Not Detected (Not Detect.); Entamoeba histolytica Not Detected (Not Detect.); Giardia lamblia Not Detected (Not Detect.); Norovirus GI/GII Not Detected (Not Detect.); Plesiomonas shigelloides Not Detected (Not Detect.); Rotavirus A Not Detected (Not Detect.); Salmonella Not Detected (Not Detect.); Sapovirus Not Detected (Not Detect.); Shigella sp./EIEC Not Detected (Not Detect.); Vibrio Not Detected (Not Detect.); Vibrio Cholerae Not Detected (Not Detect.); Yersinia enterocolitica Not Detected (Not Detect.)
[2022-10-14 11:56] VITALS: BP 111/49; PULSE 81; RESP 19; TEMP 36.6; O2SAT 95
--- NOTE | 2022-10-14 13:15 | HO.PM.IMPN ---
Subjective Subjective Date of Service: 10/14/22 Interval History: seen and examined this morning follow up for abdominal pain overnight had rapid response for decreased LOC but apparently told provider he was bored and that's why he didn't respond to providers still reporting abdominal pain and says he will not go home until pain is better per nurse ate a double breakfast this morning Review of Systems Review of Systems: Yes all other systems are reviewed and are negative Constitutional Constitutional: Denies chills and Denies fever(s) Cardiovascular Cardiovascular: Denies chest pain, Denies palpitations and Denies dyspnea Respiratory Respiratory: Denies cough and Denies dyspnea Gastrointestinal Gastrointestinal: Reports abdominal pain, Reports diarrhea and Denies nausea Endocrine Endocrine: Denies palpitations Physical Exam Vital Signs: Vital Signs: Last Vital Signs Temp 97.9 F 10/14/22 11:56 Pulse 81 10/14/22 11:56 Resp 19 10/14/22 11:56 BP 111/49 L 10/14/22 11:56 Pulse Ox 95 10/14/22 11:56 O2 Del Method 10/14/22 11:56 O2 Flow Rate 2 10/12/22 15:23 BMI result Body Mass Index 47.4 Const: General: comfortable, no acute distress, alert and awake Nutritional Appearance: obese Resp: Effort & Inspection: normal respiratory effort and able to speak in complete sentences Cardio: Rate: regular rate Heart sounds: S1 normal heart sound present and S2 normal heart sound present GI: Inspection: No distended and Yes obesity Palpation (GI): Soft to palpation and nontender Neuro: Other: no focal deficits apprecitated Objective Data Active Medications Acetaminophen (Acetaminophen 325 Mg Tablet) 650 mg PO Q6H PRN PRN Reason: Pain, Mild (Pain Scale 1-3) Last Admin: 10/13/22 19:55 Dose: 650 mg Documented By: DAREK Chlorpromazine HCl (Chlorpromazine Hcl 25 Mg Tablet) 25 mg PO TID [facility] Last Admin: 10/14/22 08:39 Dose: 25 mg Documented By: TERESSA Divalproex Sodium (Divalproex Sodium 500 Mg Tablet.Dr) 2,000 mg PO BEDTIME [facility] Last Admin: 10/13/22 19:55 Dose: 2,000 mg Documented By: DAREK Guanfacine HCl (Guanfacine Hcl Er 2 Mg Tab.Er.24h) 4 mg PO BEDTIME [facility] Last Admin: 10/13/22 19:55 Dose: 4 mg Documented By: DAREK Lactated Ringer's (Lr) 1,000 mls @ 100 mls/hr IVCONT .Q10H [facility] Last Infusion: 10/14/22 09:04 Dose: 0 mls/hr Documented By: TERESSA Melatonin (Melatonin 3 Mg Tablet) 6 mg PO BEDTIME PRN PRN Reason: Insomnia Last Admin: 10/13/22 19:56 Dose: 6 mg Documented By: DAREK Ondansetron HCl (Ondansetron Odt 4 Mg Tab.Rapdis) 4 mg TRANSLINGU TIDAC [facility] Last Admin: 10/14/22 11:45 Dose: 4 mg Documented By: TERESSA Pharmacy Consult (Consult Rx Perform Med Rec) 1 each MISCELLANE ONCE PRN PRN Reason: Consult order Polyethylene Glycol (Polyethylene Glycol 3350 17 Gm Powd.Pack) 17 gm PO DAILY [facility] Last Admin: 10/14/22 08:35 Dose: Not Given Documented By: TERESSA Non-Admin Reason: [email or web address] Propranolol HCl (Propranolol Hcl La 80 Mg Cap.Sa.24h) 160 mg PO DAILY [facility]; Protocol Last Admin: 10/14/22 08:39 Dose: 160 mg Documented By: TERESSA Quetiapine Fumarate (Quetiapine Fumarate 400 Mg Tablet) 800 mg PO BEDTIME [facility] Last Admin: 10/13/22 19:55 Dose: 800 mg Documented By: DAREK Senna/Docusate Sodium (Sennosides/Docusate Sodium Tablet) 2 tab PO BID [facility] Last Admin: 10/14/22 08:35 Dose: Not Given Documented By: TERESSA Non-Admin Reason: loose stools Sodium Chloride (0.9 % Sodium Chloride Flush 3 Ml Syringe) 3 ml IVFLUSH QSHIFT [facility] Last Admin: 10/14/22 08:40 Dose: Not Given Documented By: TERESSA Non-Admin Reason: IV Running Vancomycin HCl (Vancomycin Hcl 125 Mg Capsule) 250 mg PO Q6H [facility] Last Admin: 10/14/22 11:45 Dose: 250 mg Documented By: TERESSA Labs CBC & Chem 7: 10/12/22 05:29 11/13/22 05:48 Labs: Laboratory Results - last 24 hr 10/13/22 10/13/22 10/13/22 15:15 15:15 23:52 POC Glucose 151 H Stl C. cayetanensis PCR Not Detected Stool Rotavirus A PCR Not Detected Stl Adenov F 40/41 PCR Not Detected Stool Astrovirus (PCR) Not Detected Stool Campylobacter PCR Not Detected Stool Cryptosporidium PCR Not Detected Stl Sh Tox Pr E STEC PCR Not Detected Stool E coli O157 PCR Not applicable Stl Enterotoxigenic E PCR Not Detected Stool EPEC (PCR) Not Detected Stool EAEC (PCR) Not Detected Stl E. histolytica PCR Not Detected Stool Giardia Lamblia PCR Not Detected Stl P. shigelloides PCR Not Detected Stool Salmonella PCR Not Detected Stool Sapovirus (PCR) Not Detected Stl Shigella/EIEC PCR Not Detected St Y.enterocolitica PCR Not Detected Stool Vibrio (PCR) Not Detected Stl Vibrio cholerae PCR Not Detected Stl Norovirus GI/GII PCR Not Detected C. difficile Tox B Gene POSITIVE A* C. difficile Toxin A&B Positive A* C. difficile Interpret SEE NOTE Assessment and Plan (1) Clostridioides difficile infection: Status: Acute Plan d#5 21yo M resident with XXYY syndrome, PNES admitted for RLQ pain with initial concern for acute appendicitis found to have cdif # RUQ pain - per Surgery very much doubt appendicitis. no fever or leukocytosis and CRP is not elevated. per mother pt had similar admission to [facility] last year- records have been requested and are pending. per senior care director, pt was admitted to [facility] in [place] last year and had appendix surgery (though pt's father doesn't recall this) CT enterography pending negative cdif positive - started on PO vancomycin for 10 days pain likely r/t cdif, no further work up indicated # mild transaminitis resolved # PNES - witnessed in ED, not consistent with epileptic sz per ED provider # mood disorder - continue propranolol, chlorpromazime, divalproex, guanfacine, quetiapine # morbid obesity - diet/exercise counseling # VTE ppx: SCDs attending - dr. chris beltrán - return to senior care in am - is unable to return today In my clinical judgment, the patient requires continued inpatient hospitalization for the following reasons: abd pain, cdif Quality Stroke Does the patient have a stroke diagnosis?: No VTE Prior VTE?: No VTE Risk Level:: Medical - moderate - high VTE Device Contraindication: Treatment Not Indicated VTE Drug Contraindication: Treatment Not Indicated
--- NOTE | 2022-10-14 13:54 | MHC.CM.PN ---
CM SPOKE WITH PENITENTIARY CONTACT YURIDIA REGARDING C DIFF + STATUS OF PT. PER YURIDIA, THE PENITENTIARY CAN ACCEPT HIM BACK IN THE AM BECAUSE THEY WILL NEED TO EDUCATE THE STAFF ON PROTOCOLS AND PROCEDURES FOR C DIFF BEFORE HE RETURNS. PROVIDER HONG TIERNEY MADE AWARE.
[2022-10-14 15:21] VITALS: BP 126/63; PULSE 84; RESP 20; TEMP 37.1; O2SAT 96
[2022-10-14] MEDS: 0.9 % Sodium Chloride Flush 3 ML SYRINGE IVFLUSH (15:25)
[2022-10-14 19:48] VITALS: BP 130/64; PULSE 83; RESP 20; TEMP 36.5; O2SAT 96
[2022-10-14] MEDS: Divalproex Sodium 500 MG TABLET.DR 2000 MG PO (20:29)
[2022-10-14] MEDS: QUEtiapine Fumarate 400 MG TABLET 800 MG PO (20:30)
[2022-10-14] MEDS: guanFACINE HCl ER 2 MG TAB.ER.24H 4 MG PO (20:30)
[2022-10-14] MEDS: Sennosides/Docusate Sodium TABLET 2 TAB PO (20:30)
[2022-10-15] VITALS: BP 130/62; PULSE 80; RESP 18; TEMP 37.1; O2SAT 97
[2022-10-15 04:00] VITALS: BP 132/70; PULSE 75; RESP 18; TEMP 36.6; O2SAT 97
[2022-10-15] MEDS: vancomycin HCL 125 MG CAPSULE 250 MG PO ×2 (05:32→10:32)
[2022-10-15 07:49] VITALS: BP 110/54; PULSE 76; RESP 16; TEMP 36.4; O2SAT 97
--- NOTE | 2022-10-15 10:20 | P.DS_ITS ---
DS: Providers Provider Date of Service: 10/15/22 Date of admission: 10/09/22 00:14 Date of discharge: 10/15/22 Primary care physician: Unknown Physician Consults: 10/09/22 14:22 Consult to General Surgery Stat Consulting Provider: Young Argueta Reason for consultation: Abd pain Has provider been notified: Yes 10/12/22 11:12 Consult to Gastroenterology Routine Consulting Provider: [facility] Reason for consultation: chronic abd pain. Attending physician on discharge: Nicholas Anderson Discharging clinician: Tereza Wolf DS: Diagnosis Discharge Diagnosis (1) Clostridioides difficile infection: Status: Acute DS: Summary Hospital Course Hospital Course: From H&P on day of admission This is a 21-year-old with pertinent history of XXY syndrome, intellectual developmental disorder, psychogenic nonepileptic seizure, resident of [facility] who presents to the emergency department for evaluation of right-sided abdominal discomfort.? Patient states abdominal pain started about 1 week ago, located in the right lower quadrant, nonradiating and progressive.? It is associated with nausea and nonbloody emesis.? Patient also having episodes of nonbloody diarrhea. unclear if he had fever, denies chills, denies chest pain, palpitations, shortness of breath, changes in urinary habits.? As per EMS, patient had shaking of extremities on his way to the ER, lasted briefly without postictal confusion.? Again while having CT of the abdomen, patient was moving all his extremities and saying that he was having a seizure.? ER provider did not think it was a real seizure.? No postictal confusion, tongue bite, urinary or bowel incontinence. In the emergency department, imaging was concerning for possible appendicitis.? Dr. Barragan is, General surgery was consulted who recommended admission for observation and will evaluate the patient in a.m.. RUQ pain. The patient was admitted for abdominal pain. Initial imaging showed that appendix wasNot identified and there was concern for early appendicitis. per Surgery very much doubt appendicitis.? no fever or leukocytosis and CRP is not elevated. ? per mother pt had similar admission to [facility] last year.? per [facility] director, pt was admitted to [facility] in [place] last year and had appendix surgery (though pt's family doesn't recall this) He was seen in consultation by GI. CT enterography was negative. Stool studies were obtained and C diff was positive. He was started on oral vancomycin. His abdominal pain is beginning to improve. He is able to tolerate a full regular diet. He will be discharged home to complete course of oral vancomycin. Seizure like activity. witnessed in ED, not consistent with epileptic sz per ED provider. There was no postictal confusion, tongue biting or bladder/ bowel incontinence. no further episodes of seizure activity Time Spent with Patient Time attestation: Total time spent providing and/or coordinating discharge services: Discharge coordination time: Greater than 30 minutes Quality: Safe Use of Opioids Does Pt have an Active Cancer Diagnosis on the Problem List?: No Quality: Stroke Does the patient have a stroke diagnosis?: No Physical Exam Vital Signs: Vital Signs: Last Vital Signs Temp 97.5 F 10/15/22 07:49 Pulse 76 10/15/22 07:49 Resp 16 10/15/22 07:49 BP 110/54 L 10/15/22 07:49 Pulse Ox 97 10/15/22 07:49 O2 Del Method 10/15/22 07:49 O2 Flow Rate 2 10/12/22 15:23 BMI result Body Mass Index 47.4 Const: General: alert and awake Nutritional Appearance: obese Resp: Effort & Inspection: normal respiratory effort and able to speak in complete sentences Cardio: Rate: regular rate Heart sounds: S1 normal heart sound present and S2 normal heart sound present GI: Inspection: No distended and Yes obesity Palpation (GI): Soft to palpation Extrem: General: Yes no pedal edema Discharge Plan Discharge Patient Disposition: Home, Self-Care Discharge Diagnosis: abdominal pain c. dif Referrals: Physician,Unknown J [Physician] - 2 days Discharge Medications: New ondansetron 4 mg tablet,disintegrating 4 mg PO Q6H PRN (Reason: nausea and vomiting) Qty: 14 0RF Label Comments: unknown last taken loperamide 2 mg capsule 2 mg PO Q6H PRN (Reason: loose stool) Qty: 14 0RF Label Comments: unknown last dose. vancomycin 125 mg Capsule 250 mg PO Q6H 8 Days Qty: 64 0RF Continued ibuprofen 600 mg tablet 600 mg PO Q8H PRN (Reason: pain) Qty: 30 0RF lorazepam 2 mg tablet 1 tab PO BID PRN (Reason: Anxiety) chlorpromazine 25 mg Tablet 25 mg PO TID quetiapine 400 mg tablet 2 tab PO BEDTIME propranolol 160 mg Capsule,Extended Release 24 Hr 160 mg PO DAILY melatonin 3 mg Tablet 3 mg PO BEDTIME divalproex 500 mg Tablet,Delayed Release (Dr/Ec) 2,000 mg PO BEDTIME guanfacine 4 mg Tablet Extended Release 24 Hr 4 mg PO BEDTIME Held sennosides [senna] 8.6 mg tablet 8.6 mg PO BEDTIME 30 Days Qty: 30 3RF Hold Instructions: hold for diarrhea docusate sodium 100 mg capsule 100 mg PO BID 30 Days Qty: 60 3RF Hold Instructions: hold for diarrhea Discharge Orders: Discharge Order (Routine); Ordered 10/15/22 Ordered By: Tereza Wolf Activity on Discharge: As tolerated Stand Alone Forms: Patient Portal Discharge page Care Plan Goals: see below Health Concerns: abdominal pain diarrhea - c.dif Plan of Treatment: take antibiotics as prescribed to complete 10 day course wash hands frequently - see recommendations below Assessment: see discharge summary Patient Instructions: C. Diff (Clostridioides Difficile) Infection (DC) Discharge Date/Time: 10/15/22 13:00
[2022-10-15] MEDS: chlorproMAZINE HCl 25 MG TABLET PO (10:32)
[2022-10-15] MEDS: Propranolol HCL LA 80 MG CAP.SA.24H 160 MG PO (10:33)
[2022-10-15] MEDS: Ondansetron ODT 4 MG TAB.RAPDIS TRANSLINGU (10:33)
--- NOTE | 2022-10-15 11:27 | MHC.CM.PN ---
Addendum entered by Micaela Hughes 10/15/22 12:48: NURSING HOME STAFF MEMBER, AUGUST, CALLED CM AND ASKED WHAT HIS NEW MEDS WOULD BE THEY WERE INFORMED PT MED CHANGES LISTED IN DC ORDERS THEY INDICATED THEY ARE AWARE PT WILL DC AFTER LUNCH AND STAFF WILL TRANSPORT Original Note: PT IS BEING DISCHARGED TODAY CM CALLED PTS SANDWICH WRAPPER, YURIDIA [phone] TO INFORM HER OF DC CALL WENT TO , MESSAGE LEFT REQUESTING CALL BACK
== END 2022-10-15 13:00 | disposition home or self-care (01) ==
LOC: HO.ED 23:16 → HO.S3 10-09 03:45 → HO.EDOVER 10-11 07:48
PROVIDERS: Family Medicine; Hospitalist; Physician Assistant; Admitting Provider Student in an Organized Health Care Education/Training Program; Emergency Provider Student in an Organized Health Care Education/Training Program; PCP Nurse Practitioner Family; Visit Provider Physician Assistant Medical
DX: A04.72 Enterocolitis due to Clostridium difficile, not specified as recurrent (principal); R10.31 Right lower quadrant pain; F72 Severe intellectual disabilities; F44.5 Conversion disorder with seizures or convulsions; Q98.0 Klinefelter syndrome karyotype 47, XXY; E66.9 Obesity, unspecified; Z68.42 Body mass index [BMI] 45.0-49.9, adult; Z20.822 Contact with and (suspected) exposure to COVID-19; F63.81 Intermittent explosive disorder; F43.20 Adjustment disorder, unspecified; L21.9 Seborrheic dermatitis, unspecified; F17.290 Nicotine dependence, other tobacco product, uncomplicated; F14.10 Cocaine abuse, uncomplicated; Z79.899 Other long term (current) drug therapy
CPT/HCPCS: 36415; 74177; 80053; 80076; 81003; 82947; 83690; 83735; 85025; 85027; 86140; 87324; 87493; 87507; 87635; 96365; 96366; 96374; 96375; 96376; 99218; 99285; J2270; J2405; J2543; Q9967

== ENCOUNTER 2022-10-19 09:35 | Emergency (ER) | payer MEDICAID, SELFPAY ==
--- NOTE | ~2022-10-19 | CT_ITS ---
EXAMINATION: CT ABDOMEN AND PELVIS WITHOUT CONTRAST CLINICAL INFORMATION: Right lower quadrant pain COMPARISON: Previous CT scans most recent 10/13/2022 TECHNIQUE: Multidetector volumetric imaging was performed from the superior aspect of the liver through the pubic symphysis. Sagittal and coronal reformatted images were obtained on the technologist's workstation. This CT examination was performed using dose optimization techniques as appropriate, variously including the following: *Automated exposure control *Adjustment of mA and/or kV according to patient size (this includes techniques or standardized protocols for targeted exams where dose is matched to indication/reason for exam; i.e. extremities or head) *Use of iterative reconstruction technique DLP: 1725 mGy-cm FINDINGS: LUNG BASES: The visualized lung bases are unremarkable. LIVER, GALLBLADDER, AND BILIARY TREE: Enlarged fatty liver with areas of fatty sparing similar to previous exam. Gallbladder appears contracted. No Biliary duct dilatation. PANCREAS: Unremarkable. SPLEEN: Unremarkable. ADRENAL GLANDS: Unremarkable. KIDNEYS AND URETERS: The kidneys are normal in size, shape, and attenuation. No hydronephrosis, hydroureter, or calculi seen. No perinephric stranding. BLADDER: Not optimally distended. GASTROINTESTINAL TRACT: The small and large bowel are unremarkable. The appendix is not seen. ABDOMINAL WALL: Small umbilical and left inguinal hernia containing fat. LYMPH NODES: Shotty small bowel mesentery and retroperitoneal lymphadenopathy similar to previous exam. No enlarged lymph nodes. No ascites. VASCULAR: Unremarkable. PELVIC VISCERA: Unremarkable. OSSEOUS STRUCTURES: Unremarkable. CT/CT abdomen pelvis wo IV con IMPRESSION: Enlarged fatty liver. Appendix not seen. No inflammatory changes in the right lower quadrant. Shotty small bowel mesentery and retroperitoneal lymphadenopathy similar to previous exam. No enlarged lymph nodes. Fleischner guidelines were followed.
[2022-10-19 09:40] VITALS: BP 143/96; PULSE 87; O2SAT 97
[2022-10-19 09:52] VITALS: BP 106/49; PULSE 82; RESP 18; TEMP 36.9; O2SAT 96; BMI 47.2
[2022-10-19 11:09] VITALS: BP 129/58; PULSE 77; RESP 14; TEMP 36.6; O2SAT 99
--- NOTE | 2022-10-19 11:17 | ED_ITS ---
HPI - Abdominal Pain General Chief Complaint: Abdominal Pain Stated Complaint: LOW ABD PAIN,SEEN RECENTLY FOR SAME PER EMS Time Seen by Provider: 10/19/22 10:57 Source: patient Mode of arrival: ambulatory Limitations: no limitations History of Present Illness HPI narrative: pertinent history of XXY syndrome, intellectual developmental disorder, psychogenic nonepileptic seizure, resident of [facility] who presents to the emergency department for evaluation of right-sided abdominal discomfort.Right lower quadrant abdominal pain for 3 days, pain is constant described as severe 7/10 localized to the right lower quadrant area with no radiation, pain is associated with nausea and vomiting for the past 3 days and lose bowel movement with no blood, no aggravating factor for the pain, no relieving factor. Patient had recent admission for abdominal pain. Related Data Home Medications Medication Instructions Recorded Confirmed divalproex 500 mg tablet,delayed 2,000 mg PO BEDTIME 05/29/22 10/09/22 release guanfacine 4 mg tablet,extended 4 mg PO BEDTIME 05/29/22 10/09/22 release 24 hr melatonin 3 mg tablet 3 mg PO BEDTIME 05/29/22 10/09/22 propranolol 160 mg capsule,24 160 mg PO DAILY 05/29/22 10/09/22 hr,extended release quetiapine 400 mg tablet 2 tab PO BEDTIME 05/29/22 10/09/22 chlorpromazine 25 mg tablet 25 mg PO TID 08/20/22 10/09/22 lorazepam 2 mg tablet 1 tab PO BID PRN Anxiety 08/20/22 10/09/22 Previous Rx's Medication Instructions Recorded ibuprofen 600 mg tablet 600 mg PO Q8H PRN pain #30 tabs 07/04/22 sennosides 8.6 mg tablet (senna) 8.6 mg PO BEDTIME 30 days #30 tabs 08/10/22 docusate sodium 100 mg capsule 100 mg PO BID 30 days #60 caps 08/31/22 loperamide 2 mg capsule 2 mg PO Q6H PRN loose stool #14 10/08/22 caps ondansetron 4 mg disintegrating 4 mg PO Q6H PRN nausea and 10/08/22 tablet vomiting #14 tabs vancomycin 125 mg capsule 250 mg PO Q6H 8 days #64 caps 10/15/22 Allergies Allergy/AdvReac Type Severity Reaction Status Date / Time methylphenidate Allergy Unknown UNKNOWN Verified 08/11/22 14:43 [From RITALIN] shrimp [SHRIMP] Allergy Unknown HIVES Verified 08/11/22 14:43 haloperidol [From Haldol] Allergy Involuntary Verified 08/11/22 14:43 Spasms Review of Systems Review of Systems All other systems are reviewed and are negative Constitutional: Reports as per HPI and Reports no additional constitutional comp laints Eyes: Reports as per HPI and Reports no additional eye complaints Reports system reviewed and no additional complaints, except as documented Cardiovascular: Reports as per HPI and Reports no additional cardiovascular complaints Respiratory: Reports as per HPI and Reports no additional respiratory complaints Gastrointestinal: Reports as per HPI and Reports no additional gastrointestinal complaints Genitourinary: Reports no additional female genitourinary complaints Musculoskeletal: Reports no additional musculoskeletal complaints Skin/Breast: Reports system reviewed and no additional complaints, except as docu Psychiatric: Reports no additional psychiatric complaints Endocrine: Reports no additional endocrine complaints Hematologic/Lymphatic: Reports no additional hematologic/lymphatic complaints Allergic/Immunologic: Reports no additional allergic/immunologic complaints Reports system reviewed and no additional complaints, except as documented and Reports Abnormal speech present [facility] Past Medical History Medical History Adjustment disorder Chronic abdominal pain Developmental disability Dyspnea Seborrheic dermatitis Seizures XXYY syndrome Surgical History History of testicular surgery Family History Family History Father No problems noted. Mother Hypertension Diabetes Other History of brain cancer Social History Social History Household Members: Other Household Members Other:: alf Housing: Other Do you presently have visiting nurse or other home services: No Alcohol intake: never Patient Tobacco Use Status: Never used Tobacco Tobacco use type: Cigarette Years Smoked: 16 years old Smoked in Last 30 Days: Yes e-Cigarette/Vaping Use: Never Used Second Hand Smoke Exposure: No Use of substances other than those prescribed or required for medical reasons: No Substance Use Type: Crack/Cocaine and Marijuana Advance Directives: No Advance Directives Information Provided: No service: No Current occupational status: disabled Cognitive needs: Yes Hearing needs: No Vision needs: No Physical Exam ED Vital Signs: Vital Signs - 24 hr 10/19/22 09:52 10/19/22 11:09 10/19/22 13:58 Temperature 98.5 F 97.8 F 97.7 F Pulse Rate 82 77 69 Respiratory Rate 18 14 14 Blood Pressure 106/49 L 129/58 L 127/55 L Pulse Oximetry 96 99 95 Oxygen Delivery Method Nasal Cannula Room Air BMI result Body Mass Index 47.2 Vital signs have been reviewed as appeared to be correct. Blood pressure normal. Heart rate normal. Respiration rate normal. Temperature normal. Oxygen saturation normal. Appearance: Alert. Oriented X3. No acute distress. Head: Normal external exam. Normocephalic. Atraumatic. No Gottlieb signs noted. No raccoon eyes noted Eyes: PERRLA. EOMI. Conjunctiva and sclera normal. Eyelids normal. ENT: TM's Normal. Pharynx normal. Uvula midline. Moist mucous membranes. No trismus noted. No drooling noted. No muffled voice noted. Neck: Normal inspection. Neck supple. FROM. No adenopathy. Thyroid Normal. No meningeal signs. No neck mass noted. CVS: Normal heart rate and rhythm. Heart sound normal. No murmurs noted. Pulses normal throughout. Respiratory: No respiratory distress. Painless inspiration. Breath sounds normal. No wheezes/rales/rhonchi noted. Chest nontender. No accessory muscle usage noted or decreased air movement noted. Abdomen: Soft and nontender. Bowel sounds normal in all 4 quadrants. No distention noted. No organomegaly noted. No visible injury noted. Back: No CVA tenderness. Full range of motion noted. Skin: Skin warm and dry. Normal skin color. Normal skin turgor. No rashes/lesions/lacerations noted. Extremities: No lower extremity edema. Extremities exhibit normal range of motion. Extremities nontender. Neuro: Oriented X 3. Cranial nerve exam: II-XII are grossly intact No motor deficit. No sensory deficit. Reflexes normal. Course Course Course Narrative: 21-year-old male with developmental delay came in for abdominal pain patient had a recent hospitalization for abdominal pain, after reviewing old records from different hospital patient had a history of appendectomy, patient was admitted to the hospital for overnight for serial abdominal exam no acute finding was found returned today for similar presentation, no leukocytosis, labs were unremarkable, CT without contrast with nondiagnostic. Will discharge the patient recommend Tylenol every 6 hours and re-evaluated by PCP. Medications Administered Discontinued Medications Generic Name Dose Route Start Last Admin Trade Name Jayant PRN Reason Stop Dose Admin Sodium Chloride 1,000 mls @ 999 mls/hr 10/19/22 10:57 10/19/22 14:25 Ns IV 10/19/22 11:57 Infused .Q1H1M ONE Infusion Morphine Sulfate 4 mg 10/19/22 11:48 10/19/22 15:16 Morphine Sulfate 4 Mg/Ml Cartridge IVPUSH 10/19/22 11:49 Not Given ONCE ONE Protocol MDM - Abdominal Pain Medical Records Attestation: I reviewed the patient's medical records. Lab Data Attestation: I reviewed the patient's lab results. Result diagrams: 10/19/22 11:10/19/22 11: Labs: Lab Results 10/19/22 10/19/22 10/19/22 Range/Units 11:15 11: 11:22 WBC 8.7 (4.8-10.8) X10*3/uL RBC 4.38 L (4.60-5.80) X10*6/uL Hgb 12.9 L (14.0-18.0) g/dl Hct 40.2 L (42.0-52.0) % MCV 91.8 (80.0-98.0) fL MCH 29.5 (27.0-33.0) pg MCHC 32.1 (31.0-36.0) g/dl RDW 13.8 (11.0-16.0) % Plt Count 196 (160-400) X10*3/uL MPV 10.0 (9.4-12.4) fL Immature Gran % (Auto) 0.2 (0.0-0.4) % Neut % (Auto) 45.9 (45-73) % Lymph % (Auto) 32.1 (20-40) % [place] % (Auto) 10.5 (2-11) % Eos % (Auto) 10.8 H (0-4) % Baso % (Auto) 0.5 (0-2) % Lymph # (Auto) 2.8 (1.2-4.9) X10*3/uL [place] # (Auto) 0.9 (0.1-1.2) X10*3/uL Eos # (Auto) 0.9 H (0.0-0.4) X10*3/uL Baso # (Auto) 0.0 (0.0-0.2) X10*3/uL Abs Immat Gran (auto) 0.02 (0.00-0.03) X10*3/uL Absolute Neuts (auto) 4.0 (2.0-8.3) x10*3/uL Absolute Nucleated RBC 0.000 (0.0-0.012) X10*3/uL Nucleated RBC % (auto) 0.0 (0.0-0.2) /100WBC Sodium 141 (135-145) mmol/L Potassium 4.3 (3.3-5.1) mmol/L Chloride 103 (96-108) mmol/L Carbon Dioxide 28 (22-29) mmol/L Anion Gap 14 (12-20) BUN 13 (9-16) mg/dL Creatinine 0.91 (0.5-1.4) mg/dL Estim Creat Clear Calc 224.4 Estimated GFR > 60 Random Glucose 99 (60-115) mg/dL Calcium 9.6 (8.4-10.2) mg/dL Total Bilirubin 0.3 (0.0-1.0) mg/dL Direct Bilirubin < 0.2 (0.0-0.5) mg/dL AST 49 H D (5-37) U/L ALT 42 H (0-40) U/L Alkaline Phosphatase 107 (39-117) U/L Total Protein 7.3 (6.5-8.0) g/dL Albumin 3.7 (3.5-5.0) g/dL Lipase 78 (8-78) U/L Urine Color Dark Yellow Urine Appearance Clear Urine pH 6.0 (5.0-9.0) Ur Specific Lookout >= 1.030 H (1.005-1.025) Urine Protein Trace (Neg-Trace) mg/dL Urine Glucose (UA) Negative (Negative) mg/dL Urine Ketones Trace (Negative) mg/dL Urine Blood Negative (Negative) Urine Nitrite Negative (Negative) Ur Leukocyte Esterase Trace H (Negative) Urine RBC 0-2 (0-2) /HPF Urine WBC 0-5 (0-5) /HPF Ur Squamous Epith Cells 0-2 (0-2) /HPF Urine Bacteria None Seen (None Seen) Hyaline Casts 0-2 (0-2) /LPF Imaging Data CT scan - abdomen: Attestation: I personally reviewed and interpreted this imaging study as follows: Radiologist's impression: Enlarged fatty liver. Appendix not seen. No inflammatory changes in the right lower quadrant. Shotty small bowel mesentery and retroperitoneal lymphadenopathy similar to previous exam. No enlarged lymph nodes. Discharge Plan Discharge Clinical Impression: Chronic abdominal pain Patient Disposition: Home, Self-Care Instructions: Abdominal Pain (ED) Prescriptions: No Action sennosides [senna] 8.6 mg tablet 8.6 mg PO BEDTIME 30 Days Qty: 30 3RF Hold Instructions: hold for diarrhea docusate sodium 100 mg capsule 100 mg PO BID 30 Days Qty: 60 3RF Hold Instructions: hold for diarrhea ibuprofen 600 mg tablet 600 mg PO Q8H PRN (Reason: pain) Qty: 30 0RF lorazepam 2 mg tablet 1 tab PO BID PRN (Reason: Anxiety) chlorpromazine 25 mg Tablet 25 mg PO TID ondansetron 4 mg tablet,disintegrating 4 mg PO Q6H PRN (Reason: nausea and vomiting) Qty: 14 0RF Label Comments: unknown last taken loperamide 2 mg capsule 2 mg PO Q6H PRN (Reason: loose stool) Qty: 14 0RF Label Comments: unknown last dose. vancomycin 125 mg Capsule 250 mg PO Q6H 8 Days Qty: 64 0RF quetiapine 400 mg tablet 2 tab PO BEDTIME propranolol 160 mg Capsule,Extended Release 24 Hr 160 mg PO DAILY melatonin 3 mg Tablet 3 mg PO BEDTIME divalproex 500 mg Tablet,Delayed Release (Dr/Ec) 2,000 mg PO BEDTIME guanfacine 4 mg Tablet Extended Release 24 Hr 4 mg PO BEDTIME Referrals: Drew Schulz, INDUSTRIAL ENGINEERING TECHNICIAN-BC [Primary Care Provider] - Interventions: ED Discharge Assessment Last Done: 10/19/22 15:47 Discharge Date/Time: 10/19/22 15:49
[2022-10-19 11:28] LABS: MANUAL DIFF FLAG NO
[2022-10-19 11:30] LABS: Basophils Percent Auto 0.5 % (0-2); Eosinophils Absolute Auto 0.9 X10*3/uL (0.0-0.4); Eosinophils Percent Auto 10.8 % (0-4); Hematocrit 40.2 % (42.0-52.0); Hemoglobin 12.9 g/dl (14.0-18.0); Imm Gran Abs Auto 0.02 X10*3/uL (0.00-0.03); Imm Gran Pct Auto 0.2 % (0.0-0.4); Lymphocytes Absolute Auto 2.8 X10*3/uL (1.2-4.9); Lymphocytes Percent Auto 32.1 % (20-40); Mean Corpuscular HGB Conc 32.1 g/dl (31.0-36.0); Mean Corpuscular Hemoglobin 29.5 pg (27.0-33.0); Mean Corpuscular Volume 91.8 fL (80.0-98.0); Monocytes Absolute Auto 0.9 X10*3/uL (0.1-1.2); Monocytes Percent Auto 10.5 % (2-11); Neutrophils Percent Auto 45.9 % (45-73); Platelet Count 196 X10*3/uL (160-400); Red Blood Count 4.38 X10*6/uL (4.60-5.80); Red Cell Distribution Width 13.8 % (11.0-16.0); White Blood Count 8.7 X10*3/uL (4.8-10.8)
[2022-10-19 11:32] LABS: Appearance Urine Clear; Color Urine Dark Yellow; Glucose Urine UA Negative (Negative); Leukocyte Esterase Urine Trace (Negative); Nitrite Urine Negative (Negative); Specific Gravity - Urine >= 1.030 (1.005-1.025); UMIC TRIGGER UACC YES; Urine Blood Negative (Negative); Urine Ketones Trace mg/dL (Negative); Urine Protein Trace mg/dL (Neg-Trace)
[2022-10-19 11:40] LABS: Bacteria Urine None Seen (None Seen); Hyaline Casts Urine 0-2 /LPF (0-2); RBC Urine 0-2 /HPF (0-2); Squamous Epithelial Cell Urine 0-2 /HPF (0-2); WBC Urine 0-5 /HPF (0-5)
[2022-10-19 11:50] LABS: Alanine Aminotransferase 42 U/L (0-40); Albumin Level 3.7 g/dL (3.5-5.0); Alkaline Phosphatase 107 U/L (39-117); Anion Gap 14 (12-20); Aspartate Amino Transferase 49 U/L (5-37); Bilirubin Direct < 0.2 mg/dL (0.0-0.5); Bilirubin Total 0.3 mg/dL (0.0-1.0); Blood Urea Nitrogen 13 mg/dL (9-16); Calcium 9.6 mg/dL (8.4-10.2); Carbon Dioxide 28 mmol/L (22-29); Chloride 103 mmol/L (96-108); Creatinine Clr Calc Pharmacy 224.4; Estimated Glomerular Filt Rate > 60; Glucose Random 99 mg/dL (60-115); Lipase 78 U/L (8-78); Potassium 4.3 mmol/L (3.3-5.1); Sodium 141 mmol/L (135-145); Total Protein 7.3 g/dL (6.5-8.0)
[2022-10-19] MEDS: 0.9 % Sodium Chloride 1,000 ML 999 ML IV (11:59)
--- NOTE | 2022-10-19 12:02 | PC.NURSE ---
pt returned from imaging, fluids started. pharmacy called d/t no morphine in [place].
--- NOTE | 2022-10-19 13:00 | PC.NURSE ---
pt's care worker from [facility] (benjamin, ) called [facility] and was updated on pt status.
[2022-10-19 13:58] VITALS: BP 127/55; PULSE 69; RESP 14; TEMP 36.5; O2SAT 95
--- NOTE | 2022-10-19 15:39 | PC.NURSE ---
OK FOR DC. PATIENT WAS WAITING FOR RESIDENTIAL STAFF MEMBER. PT PULLED OUT IV AND REFUSED VITALS.
== END 2022-10-19 15:49 | disposition home or self-care (01) ==
PROVIDERS: Emergency Provider Emergency Medicine; PCP Nurse Practitioner Family
DX: G89.29 Other chronic pain (principal); R10.9 Unspecified abdominal pain; Z79.899 Other long term (current) drug therapy
CPT/HCPCS: 36415; 74176; 80048; 80076; 81001; 83690; 85025; 96361; 96374; 99284

== ENCOUNTER 2023-02-09 19:44 | Emergency (ER) | payer OTHER, SELFPAY ==
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
[2023-02-09 19:51] VITALS: BP 119/84; PULSE 87; RESP 17; TEMP 36.9; O2SAT 95
[2023-02-09 19:57] VITALS: BP 120/66; PULSE 93; O2SAT 98; BMI 48.6
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
[2023-02-09] MEDS: diphenhydrAMINE HCL 25 MG CAPSULE PO (20:18)
[2023-02-09] MEDS: HaloperidoL 5 MG TABLET PO (20:18)
[2023-02-09] MEDS: LORazepam 1 MG TABLET 2 MG PO (20:18)
[2023-02-09] MEDS: Bacitracin Oint 0.9 GM PACKET 1 APPL TOPICAL (20:54)
--- NOTE | 2023-02-09 21:48 | PC.NURSE ---
Contact - dental practice manager - [facility] - [phone]
[2023-02-09 22:57] LABS: MANUAL DIFF FLAG NO
[2023-02-09 22:58] LABS: Basophils Percent Auto 0.3 % (0-2); Eosinophils Absolute Auto 0.8 X10*3/uL (0.0-0.4); Eosinophils Percent Auto 7.9 % (0-4); Hematocrit 42.4 % (42.0-52.0); Hemoglobin 13.7 g/dl (14.0-18.0); Imm Gran Abs Auto 0.03 X10*3/uL (0.00-0.03); Imm Gran Pct Auto 0.3 % (0.0-0.4); Lymphocytes Absolute Auto 3.9 X10*3/uL (1.2-4.9); Lymphocytes Percent Auto 38.5 % (20-40); Mean Corpuscular HGB Conc 32.3 g/dl (31.0-36.0); Mean Corpuscular Hemoglobin 29.3 pg (27.0-33.0); Mean Corpuscular Volume 90.6 fL (80.0-98.0); Mean Platelet Volume 9.9 fL (9.4-12.4); Monocytes Absolute Auto 0.9 X10*3/uL (0.1-1.2); Monocytes Percent Auto 9.2 % (2-11); Neutrophils Absolute Auto 4.5 x10*3/uL (2.0-8.3); Neutrophils Percent Auto 43.8 % (45-73); Platelet Count 174 X10*3/uL (160-400); Red Blood Count 4.68 X10*6/uL (4.60-5.80); Red Cell Distribution Width 14.5 % (11.0-16.0); White Blood Count 10.2 X10*3/uL (4.8-10.8)
[2023-02-09 23:14] LABS: Alanine Aminotransferase 42 U/L (0-40); Albumin Level 3.6 g/dL (3.5-5.0); Alkaline Phosphatase 104 U/L (39-117); Anion Gap 13 (12-20); Aspartate Amino Transferase 47 U/L (5-37); Bilirubin Total 0.4 mg/dL (0.0-1.0); Blood Urea Nitrogen 11 mg/dL (9-16); COVID-19 Test Negative (Negative); Calcium 9.1 mg/dL (8.4-10.2); Carbon Dioxide 26 mmol/L (22-29); Chloride 107 mmol/L (96-108); Creatinine Clr Calc Pharmacy 245.2; Estimated Glomerular Filt Rate > 60; Ethanol < 10 mg/dL; Glucose Random 116 mg/dL (60-115); IDNOW Serial# 6674DD1D; Potassium 4.2 mmol/L (3.3-5.1); Sodium 142 mmol/L (135-145); Total Protein 7.4 g/dL (6.5-8.0)
[2023-02-10 01:00] LABS: Appearance Urine Clear; Color Urine Dark Yellow; Glucose Urine UA 250 mg/dL (Negative); Leukocyte Esterase Urine Negative (Negative); Nitrite Urine Negative (Negative); Specific Gravity - Urine >= 1.030 (1.005-1.025); Urine Blood Negative (Negative); Urine Ketones Trace mg/dL (Negative); Urine Protein Negative (Neg-Trace)
[2023-02-10 01:04] LABS: Amphetamine Screen Urine Not Detected (Not Detect); Barbiturates, Urine Not Detected (Not Detect); Benzodiazepines Screen Urine Not Detected (Not Detect); Cannabinoid Screen Urine Not Detected (Not Detect); Cocaine Screen Urine Not Detected (Not Detect); Fentanyl, urine Not Detected (Not Detect); Opiate Screen Urine Not Detected (Not Detect); Phencyclidine Screen Urine Not Detected (Not Detect)
[2023-02-10 02:50] VITALS: RESP 18
[2023-02-10 04:00] VITALS: BP 101/60; PULSE 72; RESP 17; TEMP 37.1; O2SAT 96
[2023-02-10 07:40] VITALS: BP 120/42; PULSE 81; RESP 14; TEMP 37.1; O2SAT 92
--- NOTE | 2023-02-10 09:38 | PC.NURSE ---
Pt remains asleep, breathing even. Awaiting ride from [facility], CARE team to call again to inquire
== END 2023-02-10 10:35 | disposition home or self-care (01) ==
PROVIDERS: Physician Assistant; Emergency Provider Emergency Medicine Emergency Medical Services
DX: S60.511A Abrasion of right hand, initial encounter (principal); S60.512A Abrasion of left hand, initial encounter; M79.642 Pain in left hand; M79.641 Pain in right hand; F43.20 Adjustment disorder, unspecified; X58.XXXA Exposure to other specified factors, initial encounter; Y93.9 Activity, unspecified; Y92.9 Unspecified place or not applicable; Y99.9 Unspecified external cause status; Z20.822 Contact with and (suspected) exposure to COVID-19; Z20.828 Contact with and (suspected) exposure to other viral communicable diseases; Z79.899 Other long term (current) drug therapy
CPT/HCPCS: 36415; 73110; 73120; 73130; 80053; 80307; 81003; 82077; 85025; 87635; 99284; 99285; S9485

== ENCOUNTER 2023-02-10 14:45 | Emergency (ER) | payer MEDICAID, SELFPAY ==
--- NOTE | ~2023-02-10 | XR_ITS ---
EXAMINATION: XR HAND, LEFT CLINICAL INFORMATION: Injury, pain COMPARISON: 02/09/2023 TECHNIQUE: PA, lateral, and oblique views of the left hand. FINDINGS: No new abnormalities since 02/09/2023. Again noted is the soft tissue swelling dorsal to metacarpals. Otherwise, soft tissues, bones and joints are unremarkable. The carpal bones, metacarpals and phalanges have an intact appearance. XR/XR hand LT 2V IMPRESSION: No new findings in the left hand or wrist compared to 02/09/2023.
[2023-02-10 14:50] VITALS: BP 128/68; PULSE 90; PULSE 94; RESP 20; TEMP 37.5; O2SAT 95; BMI 48.6
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
--- NOTE | 2023-02-10 16:07 | ED_ITS ---
HPI - General Adult General Chief complaint: Psychiatric Symptoms <KELSY Anderson - Last Filed: 02/10/23 17:49> Stated complaint: crisis <KELSY Anderson - Last Filed: 02/10/23 17:49> Time Seen by Provider: 02/10/23 16:06 <KELSY Anderson - Last Filed: 02/10/23 17:49> Source: patient and EMS <KELSY Anderson - Last Filed: 02/10/23 17:49> Mode of arrival: EMS <KELSY Anderson - Last Filed: 02/10/23 17:49> Limitations: no limitations <KELSY Anderson - Last Filed: 02/10/23 17:49> History of Present Illness HPI narrative: Patient is a 22 year old assigned male at with an extensive psychiatric and behavioral history presenting to the emergency department today with after an angry outburst at his senior living. Patient states that he was angry at his senior living staff and doesn't feel safe. Patient denies any dizziness, lightheadedness, abdominal pain, nausea, vomiting, fever, chills, blurry vision, double vision, loss of vision, chest pain, difficulty breathing, shortness of breath, back pain, night sweats, pain with urination, increased urinary frequency, increased urinary urgency, blood in his urine or stool, syncope or a near syncopal episode, recent trauma or falls, bowel incontinence, bladder incontinence, bowel retention, bladder retention, or any other complaints at this time. <KELSY Anderson - Last Filed: 02/10/23 17:49> Related Data Home medications: Home Medications Medication Instructions Recorded Confirmed divalproex 500 mg tablet,delayed 2,000 mg PO BEDTIME 05/29/22 10/09/22 release guanfacine 4 mg tablet,extended 4 mg PO BEDTIME 05/29/22 10/09/22 release 24 hr melatonin 3 mg tablet 3 mg PO BEDTIME 05/29/22 10/09/22 propranolol 160 mg capsule,24 160 mg PO DAILY 05/29/22 10/09/22 hr,extended release quetiapine 400 mg tablet 2 tab PO BEDTIME 05/29/22 10/09/22 chlorpromazine 25 mg tablet 25 mg PO TID 08/20/22 10/09/22 lorazepam 2 mg tablet 1 tab PO BID PRN Anxiety 08/20/22 10/09/22 loperamide 2 mg capsule 2 mg PO Q6H PRN loose stool 11/17/22 Previous Rx's Medication Instructions Recorded ibuprofen 600 mg tablet 600 mg PO Q8H PRN pain #30 tabs 07/04/22 docusate sodium 100 mg capsule 100 mg PO BID 30 days #60 caps 08/31/22 polyethylene glycol 3350 17 gram 17 g PO DAILY constipation #100 ea 12/22/22 oral powder packet (Miralax) sennosides 8.6 mg tablet (senna) 8.6 mg PO BEDTIME 30 days #30 tabs 01/04/23 <KELSY Anderson Last Filed: 02/10/23 17:49> Allergies/adverse reactions: Allergies Allergy/AdvReac Type Severity Reaction Status Date / Time methylphenidate Allergy Unknown UNKNOWN Verified 11/17/22 11:31 [From RITALIN] shrimp [SHRIMP] Allergy Unknown HIVES Verified 11/17/22 11:31 haloperidol [From Haldol] Allergy Involuntary Verified 11/17/22 11:31 Spasms <KELSY Anderson Last Filed: 02/10/23 17:49> Review of Systems Constitutional: Constitutional: Reports no additional constitutional complaints, Denies chills, Denies fever(s) and Denies night sweats <KELSY Anderson Last Filed: 02/10/23 17:49> Eyes: Eyes: Reports no additional eye complaints, Denies blurry vision, Denies change in vision, Denies diplopia, Denies eye discharge, Denies loss of vision and Denies eye pain <KELSY Anderson Last Filed: 02/10/23 17:49> ENT: Denies dizziness <KELSY Anderson Last Filed: 02/10/23 17:49> Cardiovascular: Cardiovascular: Reports no additional cardiovascular complaint s, Denies chest pain, Denies lightheadedness, Denies Loss of Consciousness and Denies dyspnea <KELSY Anderson Last Filed: 02/10/23 17:49> Respiratory: Respiratory: Reports no additional respiratory complaints and Denies dyspnea <KELSY Anderson Last Filed: 02/10/23 17:49> Gastrointestinal: Gastrointestinal: Reports no additional gastrointestinal complaints, Denies abdominal pain, Denies melena, Denies hematochezia, Denies change in bowel habits and Denies change in stool character <KELSY Anderson - Last Filed: 02/10/23 17:49> Genitourinary: Genitourinary: Reports no additional male genitourinary complaints, Denies hematuria, Denies oliguria, Denies difficulty urinating, Denies dysuria, Denies urinary frequency, Denies urinary hesitancy, Denies urinary incontinence and Denies urinary urgency <KELSY Anderson - Last Filed: 02/10/23 17:49> Musculoskeletal: Musculoskeletal: Reports no additional musculoskeletal complaints, Denies numbness and Denies tingling <KELSY Anderson - Last Filed: 02/10/23 17:49> Neurologic: Denies dizziness, Denies loss of vision, Denies numbness and Denies tingling <KELSY Anderson - Last Filed: 02/10/23 17:49> Psychiatric: Psychiatric: Reports no additional psychiatric complaints <KELSY Anderson - Last Filed: 02/10/23 17:49> Endocrine: Endocrine: Reports no additional endocrine complaints <KELSY Anderson - Last Filed: 02/10/23 17:49> Hematologic/Lymphatic: Hematologic/Lymphatic: Reports no additional hematologic/lymphatic complaints <KELSY Anderson - Last Filed: 02/10/23 17:49> Allergic/Immunologic: Allergic/Immunologic: Reports no additional allergic/immunologic complaints <KELSY Anderson - Last Filed: 02/10/23 17:49> [facility] Past Medical History Attestation statement: The following information was validated with the patient. <KELSY Anderson - Last Filed: 02/10/23 17:49> Source: old records reviewed and nursing notes reviewed <KELSY Anderson - Last Filed: 02/10/23 17:49> Medical History: Medical History Adjustment disorder Chronic abdominal pain Developmental disability Dyspnea Intellectual developmental disorder, severe Seborrheic dermatitis Seizures XXYY syndrome <KELSY Anderson - Last Filed: 02/10/23 17:49> Surgical History: Surgical History History of testicular surgery <KELSY Anderson - Last Filed: 02/10/23 17:49> Family History Family History: Family History Father No problems noted. Mother Hypertension Diabetes Other History of brain cancer <KELSY Anderson - Last Filed: 02/10/23 17:49> Social History Social History: Social History Household Members: Other Household Members Other:: senior living Housing: Other Do you presently have visiting nurse or other home services: No Alcohol intake: unknown Patient Tobacco Use Status: Never used Tobacco Tobacco use type: Cigarette Years Smoked: 16 years old e-Cigarette/Vaping Use: Never Used Second Hand Smoke Exposure: No Substance Use Type: Crack/Cocaine and Marijuana Advance Directives: No Advance Directives Information Provided: No service: No Current occupational status: disabled Cognitive needs: Yes Hearing needs: No Vision needs: No <KELSY Anderson - Last Filed: 02/10/23 17:49> Physical Exam ED Vital Signs: Vital Signs - 24 hr 02/10/23 14:50 02/10/23 21:02 02/11/23 00:52 Temperature 99.5 F 98.2 F Pulse Rate 94 90 Respiratory Rate 20 16 18 Blood Pressure 128/68 127/64 Pulse Oximetry 95 96 Oxygen Delivery Method Room Air Room Air 02/11/23 05:38 02/11/23 07:16 Temperature 98.1 F Pulse Rate 98 91 Respiratory Rate 17 18 Blood Pressure 121/63 123/63 Pulse Oximetry 92 96 Oxygen Delivery Method Room Air Room Air BMI result Body Mass Index 48.6 <KELSY Anderson - Last Filed: 02/10/23 17:49> Vital Signs - 24 hr 02/10/23 14:50 02/10/23 21:02 02/11/23 00:52 Temperature 99.5 F 98.2 F Pulse Rate 94 90 Respiratory Rate 20 16 18 Blood Pressure 128/68 127/64 Pulse Oximetry 95 96 Oxygen Delivery Method Room Air Room Air 02/11/23 05:38 02/11/23 07:16 Temperature 98.1 F Pulse Rate 98 91 Respiratory Rate 17 18 Blood Pressure 121/63 123/63 Pulse Oximetry 92 96 Oxygen Delivery Method Room Air Room Air BMI result Body Mass Index 48.6 <KELSY Alvarez - Last Filed: 02/11/23 09:28> Const General: cooperative, no acute distress, alert and awake <KELSY Anderson - Last Filed: 02/10/23 17:49> Nutritional Appearance: well nourished <KELSY Anderson - Last Filed: 02/10/23 17:49> Orientation/consciousness: patient oriented x3 <KELSY Anderson - Last Filed: 02/10/23 17:49> Limitations: no limitations <KELSY Anderson - Last Filed: 02/10/23 17:49> HENMT Head: Yes normal to inspection and Yes atraumatic <KELSY Anderson - Last Filed: 02/10/23 17:49> Ears: hearing grossly normal bilaterally and external ears normal <KELSY Anderson - Last Filed: 02/10/23 17:49> General nose exam: Normal external nose present, no nasal discharge noted and no epistaxis <KELSY Anderson - Last Filed: 02/10/23 17:49> Face and sinus: Yes normal facial exam, No abrasion and No laceration <KELSY Anderson - Last Filed: 02/10/23 17:49> Mouth: Normal oral and palatal mucosa present, no drooling and no muffled voice <KELSY Anderson - Last Filed: 02/10/23 17:49> Eyes General: appearance normal, both eyes and all related structures <KELSY Anderson - Last Filed: 02/10/23 17:49> Periorbital: periorbital findings normal <KELSY Anderson - Last Filed: 02/10/23 17:49> Eyelids: Yes eyelids normal <KELSY Anderson - Last Filed: 02/10/23 17:49> Conjunctivae: conjunctivae normal <KELSY Anderson - Last Filed: 02/10/23 17:49> Pupils: Equal, round and reactive pupils present <KELSY Anderson - Last Filed: 02/10/23 17:49> EOM: EOMs intact bilaterally <Holli Castro PA - Last Filed: 02/10/23 17:49> Neck Neck: Yes normal visual inspection, Yes full ROM and Yes no lymphadenopathy <Holli Castro PA - Last Filed: 02/10/23 17:49> Chest Chest palpation & inspection: normal inspection of the chest <Holli Castro PA - Last Filed: 02/10/23 17:49> Resp Effort & Inspection: normal respiratory effort and able to speak in complete sentences <Holli Szymanskijamar PA - Last Filed: 02/10/23 17:49> Auscultation: clear to auscultation bilaterally <Holli Castro PA - Last Filed: 02/10/23 17:49> Cardio Rate: regular rate <Holli Castro PA - Last Filed: 02/10/23 17:49> Rhythm: regular rhythm <Holli Castro PA - Last Filed: 02/10/23 17:49> GI Inspection: Yes normal to inspection <Holli Szymanskijamar PA - Last Filed: 02/10/23 17:49> Neuro General: patient oriented x3 and moves all extremities <Holli Castro PA - Last Filed: 02/10/23 17:49> Cranial nerves: Yes Equal, round and reactive pupils present <Holli Szymanskijamar PA - Last Filed: 02/10/23 17:49> Cognition (Neuro): normal cognition <Holli Castro PA - Last Filed: 02/10/23 17:49> Motor exam (neuro): 5/5 motor strength present throughout <Holli Szymanskijamar PA - Last Filed: 02/10/23 17:49> Sensory Exam: Normal double simultaneous stimulation for sensation <Holli Szymanskijamar PA - Last Filed: 02/10/23 17:49> Coordination: [id number] test normal <Holli Szymanskijamar PA - Last Filed: 02/10/23 17:49> Extrem General: Yes normal to inspection, Yes full ROM and Yes capillary refill normal <Holli Szymanskijamar PA - Last Filed: 02/10/23 17:49> Psych Appearance: grossly normal <Holli Szymanskijamar PA - Last Filed: 02/10/23 17:49> Mental Status: mental status grossly normal <KELSY Anderson - Last Filed: 02/10/23 17:49> Affect: normal affect <KELSY Anderson - Last Filed: 02/10/23 17:49> Attitude: cooperative <KELSY Anderson - Last Filed: 02/10/23 17:49> Thought process: Normal thought process present <KELSY Anderson Last Filed: 02/10/23 17:49> Thought content: Normal thought content present <KELSY Anderson Last Filed: 02/10/23 17:49> Insight: Good insight present (Psych) <KELSY Anderson - Last Filed: 02/10/23 17:49> Course Reevaluation(s) Reevaluation #1: physician observation continued overnight. CARE team working on seeing the patient - no acute events here overnight, aggression and anger is improved today. calm and cooperative. VSS. will continue to monitor and f/u with CARE team for dispo plan. <KELSY Alvarez - Last Filed: 02/11/23 09:28> Medications Administered Discontinued Medications Generic Name Dose Route Start Last Admin Trade Name Freq PRN Reason Stop Dose Admin Lorazepam 2 mg 02/10/23 21:10 02/10/23 21:19 Lorazepam 1 Mg Tablet PO 02/10/23 21:11 2 mg ONCE STA Administration <KELSY Anderson - Last Filed: 02/10/23 17:49> Medications Administered Discontinued Medications Generic Name Dose Route Start Last Admin Trade Name Freq PRN Reason Stop Dose Admin Lorazepam 2 mg 02/10/23 21:10 02/10/23 21:19 Lorazepam 1 Mg Tablet PO 02/10/23 21:11 2 mg ONCE STA Administration <KELSY Alvarez - Last Filed: 02/11/23 09:28> Medical Decision Making Medical Decision Making MDM Narrative: Patient is a 22 year old assigned male at with an extensive ps ychiatric and behavioral history presenting to the emergency department today after an angry outburst. Patient's physical exam was unremarkable. Patient's left hand x-ray showed no acute process. I explained my physical exam findings as well as all test results to the patient. I answered all questions asked by the patient. Patient pending CARE team eval for disposition. <KELSY Anderson - Last Filed: 02/10/23 17:49> Differential Diagnosis Differential Diagnoses: The differential diagnosis associated with the presentation includes <KELSY Anderson - Last Filed: 02/10/23 17:49> aggression <KELSY Anderson - Last Filed: 02/10/23 17:49> Independent Interpretation I performed an independent interpretation of an: Plain X-Ray <KELSY Anderson - Last Filed: 02/10/23 17:49> Interpretation: My interpretation is in agreement with the radiologist's impression of this imaging study. EXAMINATION: XR HAND, LEFT CLINICAL INFORMATION: Injury, pain? COMPARISON: 02/09/2023? TECHNIQUE: PA, lateral, and oblique views of the left hand. FINDINGS: No new abnormalities since 02/09/2023. Again noted is the soft tissue swelling dorsal to metacarpals. Otherwise, soft tissues, bones and joints are unremarkable. The carpal bones, metacarpals and phalanges have an intact appearance.? XR/XR hand LT 2V IMPRESSION: No new findings in the left hand or wrist compared to 02/09/2023 Dictated By: Kwan Washington MD Signed By: Electronically signed by Kwan Washington MD 02/10/23 6554 <KELSY Anderson Last Filed: 02/10/23 17:49> Discharge Plan Discharge Clinical Impression: Aggression <KELSY Anderson Last Filed: 02/10/23 17:49> Patient Disposition: Still a Patient <KELSY Anderson Last Filed: 02/10/23 17:49> Prescriptions: No Action docusate sodium 100 mg capsule 100 mg PO BID 30 Days Qty: 60 3RF Hold Instructions: hold for diarrhea polyethylene glycol 3350 [Miralax] 17 gram powder in packet 17 g PO DAILY Qty: 100 2RF Rx Instructions: please take 2 doses (at same time) daily x 5 days, then go to once a day thereafter. If continued diarrhea on day 6-7, stop med and let me know sennosides [senna] 8.6 mg tablet 8.6 mg PO BEDTIME 30 Days Qty: 30 3RF Hold Instructions: hold for diarrhea ibuprofen 600 mg tablet 600 mg PO Q8H PRN (Reason: pain) Qty: 30 0RF lorazepam 2 mg tablet 1 tab PO BID PRN (Reason: Anxiety) chlorpromazine 25 mg Tablet 25 mg PO TID quetiapine 400 mg tablet 2 tab PO BEDTIME propranolol 160 mg Capsule,Extended Release 24 Hr 160 mg PO DAILY melatonin 3 mg Tablet 3 mg PO BEDTIME divalproex 500 mg Tablet,Delayed Release (Dr/Ec) 2,000 mg PO BEDTIME guanfacine 4 mg Tablet Extended Release 24 Hr 4 mg PO BEDTIME loperamide 2 mg capsule 2 mg PO Q6H PRN (Reason: loose stool) Label Comments: unknown last dose. <KELSY Anderson - Last Filed: 02/10/23 17:49>
--- NOTE | 2023-02-10 18:43 | MHC.EDTECH ---
Cleaned the back of patients left hand with sterile water which had superficial scrapes and cuts due to patient punching a wall. Bandaged and wrapped patients hand with gauze
--- NOTE | 2023-02-10 19:15 | PC.NURSE ---
[facility] STAFF: CAMILA HANSON [phone]. CALL WHEN CLEARED FOR DISCARGE.
[2023-02-10 21:02] VITALS: BP 127/64; PULSE 90; RESP 16; TEMP 36.8; O2SAT 96
[2023-02-10] MEDS: LORazepam 1 MG TABLET 2 MG PO (21:19)
--- NOTE | 2023-02-10 21:25 | PC.NURSE ---
late entry- pt reports increased anxiety due to huber bed location. this rn and smelter charger placed pt in ed 21from huber bed. pt medicated according to jan. 1:[address]
[2023-02-11 00:52] VITALS: RESP 18
--- NOTE | 2023-02-11 04:05 | PC.NURSE ---
pt sleeping comfortably on stretcher positioned on r side. rise and fall of chest noted. rr 20 nonlabored
--- NOTE | 2023-02-11 04:53 | PC.NURSE ---
brittany staff member from pt facility checking in on pt status. this rn informed staff memeber of care team's plan to reassess pt in the morning. staff member provided call back number for updates or questions. [phone]
[2023-02-11 05:38] VITALS: BP 121/63; PULSE 98; RESP 17; TEMP 36.7; O2SAT 92
--- NOTE | 2023-02-11 06:59 | PC.NURSE ---
assumed care of patient, pt remains on sec 12, sitter in place, resting comfortably in stretcher, awaiting re-eval by CARE, ELLIOTS
--- NOTE | 2023-02-11 06:59 | PC.NURSE ---
pt 1:[address] chest rise and fall noted, RR 20 nonlabored. pt sleeping on stretcher. report given to oncoming nurse
[2023-02-11 07:16] VITALS: BP 123/63; PULSE 91; RESP 18; O2SAT 96
--- NOTE | 2023-02-11 09:42 | MHC.CARE ---
attempted to speak with German, who remains partially asleep, says no when asked if he wants to discuss returning to his snf
--- NOTE | 2023-02-11 10:41 | MHC.CARE ---
Attempted to discuss return to snf again, patient engaged more than before, or minimally. Stated he does not want to go to his snf, because of staff, did not give specifics. When asked about what going back in a good way would look like, client began to snore. T/w informed him I would be back to talk to him more about planning the rest of the day.
--- NOTE | 2023-02-11 11:24 | PC.NURSE ---
assumed care of pt at 1115, pt sleeping, 1:1 at bedside, pt pending reevaluation from CARE team when pt is more awake regarding [facility].
--- NOTE | 2023-02-11 13:18 | PHA.MEDREC ---
Pharmacy Consult ? Medication Reconciliation Pharmacy has completed the medication reconciliation. Med rec complete from [facility] (Nicky). Nicky also reports viagra as part of patient occasional medication use.
[2023-02-11] MEDS: LORazepam 1 MG TABLET 2 MG PO (14:26)
[2023-02-11] MEDS: chlorproMAZINE HCl 25 MG TABLET 50 MG PO (14:26)
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
--- NOTE | 2023-02-11 15:22 | PC.NURSE ---
pt reporting he would like to leave and go back to [facility], CARE team aware.
--- NOTE | 2023-02-11 20:32 | MHC.CARE ---
CARE team spoke with Wellington warehouse unloader and discussed discharge to back to group as German is requesting discharge. Wellington stated he would call CARE team back as he had to arrange for multiple staff to be present on Krystin return. CARE team waited one hour and did not receive return phone call. CARE team called back and Wellington reports he did have staff in place to greet German on arrival back to [facility]. CARE team informed manager corporate he would be transported home via lyft. Lyft was initiated and CARE team walked German out of hospital and escorted him to waiting Lyft. CARE team observed route and lyft notification that German had made it safely to his destination.
== END 2023-02-11 17:01 | disposition home or self-care (01) ==
PROVIDERS: Emergency Provider Emergency Medicine
DX: F91.8 Other conduct disorders (principal); R45.851 Suicidal ideations; S69.92XA Unspecified injury of left wrist, hand and finger(s), initial encounter; W22.09XA Striking against other stationary object, initial encounter; F41.9 Anxiety disorder, unspecified; F43.20 Adjustment disorder, unspecified; F88 Other disorders of psychological development; Q98.4 Klinefelter syndrome, unspecified; Z79.899 Other long term (current) drug therapy; Y93.89 Activity, other specified; Y92.199 Unspecified place in other specified residential institution as the place of occurrence of the external cause; Y99.9 Unspecified external cause status
CPT/HCPCS: 73120; 99284; 99285

== ENCOUNTER 2023-05-16 14:58 | Emergency (ER) | payer MEDICAID, SELFPAY ==
[2023-05-16 15:17] VITALS: BP 114/77; BP 156/91; PULSE 67; PULSE 97; RESP 16; TEMP 36.6; O2SAT 100; O2SAT 96; BMI 51.3
--- NOTE | 2023-05-16 15:19 | ED_ITS ---
HPI - Abdominal Pain General Chief Complaint: Nausea/Vomiting/Diarrhea Stated Complaint: NOT FEELING WELL FROM HALF-WAY Time Seen by Provider: 05/16/23 15:11 Source: patient and EMS Mode of arrival: EMS Limitations: no limitations History of Present Illness HPI narrative: 22-year-old male came in by ambulance from residential for evaluation of nausea, vomiting for the past 3-4 days, patient was seen and they state as per patient has unremarkable workup done at the emergency department then patient was discharged, patient do not feel better still feel pain in the left lower quadrant area, pain is associated with nausea and vomiting. Related Data Home Medications Medication Instructions Recorded Confirmed divalproex 500 mg tablet,delayed 2,000 mg PO BEDTIME 05/29/22 02/11/23 release guanfacine 4 mg tablet,extended 4 mg PO BEDTIME 05/29/22 02/11/23 release 24 hr melatonin 3 mg tablet 3 mg PO BEDTIME 05/29/22 02/11/23 propranolol 160 mg capsule,24 160 mg PO DAILY 05/29/22 02/11/23 hr,extended release quetiapine 400 mg tablet 800 mg PO BEDTIME 05/29/22 02/11/23 lorazepam 2 mg tablet 2 mg PO DAILY PRN Anxiety 08/20/22 02/11/23 acetaminophen 325 mg tablet 650 mg PO Q6H PRN Pain 02/11/23 02/11/23 chlorhexidine gluconate 0.12 % 15 ml buccal BEDTIME 02/11/23 02/11/23 mouthwash (Peridex) chlorpromazine 50 mg tablet 50 mg PO TID 02/11/23 02/11/23 fluoride (sodium) 1.1 % dental 1 appl dental BEDTIME 02/11/23 02/11/23 cream (Denta 5000 Plus) ibuprofen 800 mg tablet 800 mg PO BID PRN Pain 02/11/23 02/11/23 Previous Rx's Medication Instructions Recorded docusate sodium 100 mg capsule 100 mg PO BID PRN Constipation 03/04/23 #180 caps sennosides 8.6 mg tablet (senna) 8.6 mg PO BEDTIME PRN Constipation 05/06/23 #30 tabs Allergies Allergy/AdvReac Type Severity Reaction Status Date / Time methylphenidate Allergy Unknown UNKNOWN Verified 11/17/22 11:31 [From RITALIN] shrimp [SHRIMP] Allergy Unknown HIVES Verified 11/17/22 11:31 haloperidol [From Haldol] Allergy Involuntary Verified 11/17/22 11:31 Spasms Review of Systems Review of Systems All other systems are reviewed and are negative Constitutional: Reports as per HPI and Reports no additional constitutional complaints Eyes: Reports as per HPI and Reports no additional eye complaints Reports system reviewed and no additional complaints, except as documented Cardiovascular: Reports as per HPI and Reports no additional cardiovascular complaints Respiratory: Reports as per HPI and Reports no additional respiratory complaints Gastrointestinal: Reports as per HPI and Reports no additional gastrointestinal complaints Genitourinary: Reports no additional female genitourinary complaints Musculoskeletal: Reports no additional musculoskeletal complaints Skin/Breast: Reports system reviewed and no additional complaints, except as docu Psychiatric: Reports no additional psychiatric complaints Endocrine: Reports no additional endocrine complaints Hematologic/Lymphatic: Reports no additional hematologic/lymphatic complaints Allergic/Immunologic: Reports no additional allergic/immunologic complaints Reports system reviewed and no additional complaints, except as documented and Reports Abnormal speech present [facility] Past Medical History Medical History Adjustment disorder Chronic abdominal pain Developmental disability Dyspnea Intellectual developmental disorder, severe Seborrheic dermatitis Seizures XXYY syndrome Surgical History History of testicular surgery Family History Family History Father No problems noted. Mother Hypertension Diabetes Other History of brain cancer Social History Social History Household Members: Other Household Members Other:: residential Housing: Other Do you presently have visiting nurse or other home services: No Alcohol intake: never Patient Tobacco Use Status: Never used Tobacco Tobacco use type: Cigarette Years Smoked: 16 years old Smoked in Last 30 Days: No e-Cigarette/Vaping Use: Never Used Second Hand Smoke Exposure: No Use of substances other than those prescribed or required for medical reasons: No Substance Use Type: Crack/Cocaine and Marijuana Advance Directives: No Advance Directives Information Provided: No service: No Current occupational status: disabled Cognitive needs: Yes Hearing needs: No Vision needs: No Physical Exam ED Vital Signs: Vital Signs - 24 hr 05/16/23 15:17 05/16/23 18:06 Temperature 97.8 F 97.8 F Pulse Rate 97 78 Respiratory Rate 16 16 Blood Pressure 114/77 113/62 Pulse Oximetry 96 94 Oxygen Delivery Method Room Air Room Air BMI result Body Mass Index 51.3 Vital signs have been reviewed as appeared to be correct. Blood pressure normal. Heart rate normal. Respiration rate normal. Temperature normal. Oxygen saturation normal. Appearance: Alert. Oriented X3. No acute distress. Head: Normal external exam. Normocephalic. Atraumatic. No Gottlieb signs noted. No raccoon eyes noted Eyes: PERRLA. EOMI. Conjunctiva and sclera normal. Eyelids normal. ENT: TM's Normal. Pharynx normal. Uvula midline. Moist mucous membranes. No trismus noted. No drooling noted. No muffled voice noted. Neck: Normal inspection. Neck supple. FROM. No adenopathy. Thyroid Normal. No meningeal signs. No neck mass noted. CVS: Normal heart rate and rhythm. Heart sound normal. No murmurs noted. Pulses normal throughout. Respiratory: No respiratory distress. Painless inspiration. Breath sounds normal. No wheezes/rales/rhonchi noted. Chest nontender. No accessory muscle usage noted or decreased air movement noted. Abdomen: Soft and nontender. Bowel sounds normal in all 4 quadrants. No distention noted. No organomegaly noted. No visible injury noted. Back: No CVA tenderness. Full range of motion noted. Skin: Skin warm and dry. Normal skin color. Normal skin turgor. No rashes/lesions/lacerations noted. Extremities: No lower extremity edema. Extremities exhibit normal range of motion. Extremities nontender. Neuro: Oriented X 3. Cranial nerve exam: II-XII are grossly intact No motor deficit. No sensory deficit. Reflexes normal. Course Course Course Narrative: 22-year-old male who lives at residential, patient presented today with abdominal pain and vomiting, patient in the emergency department had unremarkable labs, with improvement of the patient's symptoms in the emergency department patient was able to tolerate p.o. intake with no nausea or vomiting or abdominal pain. Reevaluation(s) Reevaluation #1: Repeat abdominal exam is soft, nontender, no rebound. Time: 18:52 Medical Decision Making Differential Diagnosis Differential Diagnoses: The differential diagnosis associated with the presentation includes (Abdominal pain, intractable nausea and vomiting, dehydration, electrolyte abnormalities, severe anemia.) Admission/Observation Consideration of admission/observation: Escalation of care including admission/observation considered Lab Data MDM Lab Attestation statement: I reviewed the patient's lab results. 05/16/23 15:33 05/16/23 15:33 Labs: Lab Results 05/16/23 05/16/23 Range/Units 15:33 15:33 WBC 6.7 (4.8-10.8) X10*3/uL RBC 4.77 (4.60-5.80) X10*6/uL Hgb 13.6 L (14.0-18.0) g/dl Hct 42.4 (42.0-52.0) % MCV 88.9 (80.0-98.0) fL MCH 28.5 (27.0-33.0) pg MCHC 32.1 (31.0-36.0) g/dl RDW 13.7 (11.0-16.0) % Plt Count 210 (160-400) X10*3/uL MPV 10.3 (9.4-12.4) fL Immature Gran % (Auto) 0.2 (0.0-0.4) % Neut % (Auto) 47.2 (45-73) % Lymph % (Auto) 39.8 (20-40) % [place] % (Auto) 6.6 (2-11) % Eos % (Auto) 5.7 H (0-4) % Baso % (Auto) 0.5 (0-2) % Lymph # (Auto) 2.7 (1.2-4.9) X10*3/uL [place] # (Auto) 0.4 (0.1-1.2) X10*3/uL Eos # (Auto) 0.4 (0.0-0.4) X10*3/uL Baso # (Auto) 0.0 (0.0-0.2) X10*3/uL Abs Immat Gran (auto) 0.01 (0.00-0.03) X10*3/uL Absolute Neuts (auto) 3.2 (2.0-8.3) x10*3/uL Absolute Nucleated RBC 0.000 (0.0-0.012) X10*3/uL Nucleated RBC % (auto) 0.0 (0.0-0.2) /100WBC Sodium 140 (135-145) mmol/L Potassium 4.3 (3.3-5.1) mmol/L Chloride 107 (96-108) mmol/L Carbon Dioxide 24 (22-29) mmol/L Anion Gap 13 (12-20) BUN 10 (9-16) mg/dL Creatinine 0.86 (0.5-1.4) mg/dL Estim Creat Clear Calc 234.4 Estimated GFR > 60 Random Glucose 148 H (60-115) mg/dL Calcium 9.6 (8.4-10.2) mg/dL Total Bilirubin 0.4 (0.0-1.0) mg/dL Direct Bilirubin 0.1 (0.0-0.5) mg/dL AST 48 H (5-37) U/L ALT 56 H (0-40) U/L Alkaline Phosphatase 119 H (39-117) U/L Total Protein 8.0 (6.5-8.0) g/dL Albumin 3.6 (3.5-5.0) g/dL Lipase 34 (8-78) U/L Medications Administered Discontinued Medications Generic Name Dose Route Start Last Admin Trade Name Freq PRN Reason Stop Dose Admin Al Hydroxide/Mg Hydroxide 30 ml 05/16/23 15:17 05/16/23 15:39 Magnesium Hydrox/Alum Hydrox 30 Ml Oral.Susp PO 05/16/23 15:18 30 ml ONCE ONE Administration Famotidine 20 mg 05/16/23 15:17 05/16/23 15:39 Famotidine/Pf 20 Mg/2 Ml Vial IVPUSH 05/16/23 15:18 20 mg ONCE ONE Administration Sodium Chloride 1,000 mls @ 999 mls/hr 05/16/23 15:17 05/16/23 17:00 Ns IV 05/16/23 16:17 Infused .Q1H1M ONE Infusion Ondansetron HCl 4 mg 05/16/23 15:17 05/16/23 15:39 Ondansetron Hcl 4 Mg/2 Ml Vial IVPUSH 05/16/23 15:18 4 mg ONCE ONE Administration Discharge Plan Discharge Clinical Impression: Abdominal pain Patient Disposition: Xfer SNF Instructions: Abdominal Pain (ED) Prescriptions: No Action docusate sodium 100 mg capsule 100 mg PO BID PRN (Reason: Constipation) Qty: 180 1RF sennosides [senna] 8.6 mg tablet 8.6 mg PO BEDTIME PRN (Reason: Constipation) Qty: 30 1RF lorazepam 2 mg tablet 2 mg PO DAILY PRN (Reason: Anxiety) acetaminophen 325 mg Tablet 650 mg PO Q6H PRN (Reason: Pain) ibuprofen 800 mg Tablet 800 mg PO BID PRN (Reason: Pain) chlorpromazine [Thorazine] 50 mg Tablet 50 mg PO TID fluoride (sodium) [Denta 5000 Plus] 1.1 % Cream 1 appl DENTAL BEDTIME chlorhexidine gluconate [Peridex] 0.12 % Mouthwash 15 ml BUCCAL BEDTIME quetiapine 400 mg tablet 800 mg PO BEDTIME propranolol 160 mg Capsule,Extended Release 24 Hr 160 mg PO DAILY melatonin 3 mg Tablet 3 mg PO BEDTIME divalproex 500 mg Tablet,Delayed Release (Dr/Ec) 2,000 mg PO BEDTIME guanfacine 4 mg Tablet Extended Release 24 Hr 4 mg PO BEDTIME
[2023-05-16 15:37] LABS: MANUAL DIFF FLAG NO
[2023-05-16 15:38] LABS: Basophils Percent Auto 0.5 % (0-2); Eosinophils Absolute Auto 0.4 X10*3/uL (0.0-0.4); Eosinophils Percent Auto 5.7 % (0-4); Hematocrit 42.4 % (42.0-52.0); Hemoglobin 13.6 g/dl (14.0-18.0); Imm Gran Abs Auto 0.01 X10*3/uL (0.00-0.03); Imm Gran Pct Auto 0.2 % (0.0-0.4); Lymphocytes Absolute Auto 2.7 X10*3/uL (1.2-4.9); Lymphocytes Percent Auto 39.8 % (20-40); Mean Corpuscular HGB Conc 32.1 g/dl (31.0-36.0); Mean Corpuscular Hemoglobin 28.5 pg (27.0-33.0); Mean Corpuscular Volume 88.9 fL (80.0-98.0); Mean Platelet Volume 10.3 fL (9.4-12.4); Monocytes Absolute Auto 0.4 X10*3/uL (0.1-1.2); Monocytes Percent Auto 6.6 % (2-11); Neutrophils Absolute Auto 3.2 x10*3/uL (2.0-8.3); Neutrophils Percent Auto 47.2 % (45-73); Platelet Count 210 X10*3/uL (160-400); Red Blood Count 4.77 X10*6/uL (4.60-5.80); Red Cell Distribution Width 13.7 % (11.0-16.0); White Blood Count 6.7 X10*3/uL (4.8-10.8)
[2023-05-16] MEDS: 0.9 % Sodium Chloride 1,000 ML 999 ML IV (15:39)
[2023-05-16] MEDS: Famotidine/PF 20 MG/2 ML VIAL IVPUSH (15:39)
[2023-05-16] MEDS: ondansetron HCL 4 MG/2 ML VIAL IVPUSH (15:39)
[2023-05-16] MEDS: Magnesium Hydrox/Alum Hydrox 30 ML ORAL.SUSP PO (15:39)
[2023-05-16 15:54] LABS: Alanine Aminotransferase 56 U/L (0-40); Albumin Level 3.6 g/dL (3.5-5.0); Alkaline Phosphatase 119 U/L (39-117); Anion Gap 13 (12-20); Aspartate Amino Transferase 48 U/L (5-37); Bilirubin Direct 0.1 mg/dL (0.0-0.5); Bilirubin Total 0.4 mg/dL (0.0-1.0); Blood Urea Nitrogen 10 mg/dL (9-16); Calcium 9.6 mg/dL (8.4-10.2); Carbon Dioxide 24 mmol/L (22-29); Chloride 107 mmol/L (96-108); Creatinine Clr Calc Pharmacy 234.4; Estimated Glomerular Filt Rate > 60; Glucose Random 148 mg/dL (60-115); Lipase 34 U/L (8-78); Potassium 4.3 mmol/L (3.3-5.1); Sodium 140 mmol/L (135-145)
[2023-05-16 18:06] VITALS: BP 113/62; PULSE 78; RESP 16; TEMP 36.6; O2SAT 94
--- NOTE | 2023-05-16 18:13 | PC.NURSE ---
pt tolerated po challenge, good result no vomiting.
== END 2023-05-16 19:00 | disposition home or self-care (01) ==
PROVIDERS: Emergency Provider Emergency Medicine
DX: R10.30 Lower abdominal pain, unspecified (principal); Z79.899 Other long term (current) drug therapy; Z87.891 Personal history of nicotine dependence
CPT/HCPCS: 36415; 80048; 80076; 83690; 85025; 96361; 96374; 96375; 99284; 99285; J2405

== ENCOUNTER 2023-05-24 16:18 | Emergency (ER) | payer MEDICAID, SELFPAY ==
--- NOTE | ~2023-05-24 | XR_ITS ---
EXAMINATION: XR CHEST CLINICAL INFORMATION: Chest pain COMPARISON: Chest x-ray 08/11/2022 TECHNIQUE: Frontal portable view of the chest was obtained. 4:55 PM FINDINGS: No significant abnormality is noted involving the heart, lungs, mediastinum, bony thorax or soft tissues. XR/XR chest 1V IMPRESSION: Unremarkable examination.
[2023-05-24 16:26] VITALS: BP 122/84; BP 99/63; PULSE 76; PULSE 80; RESP 18; TEMP 37; O2SAT 95; O2SAT 99; BMI 47.3
[2023-05-24 16:33] VITALS: BP 99/63; PULSE 80; RESP 18; TEMP 36.7; O2SAT 98
--- NOTE | 2023-05-24 16:35 | PC.NURSE ---
Alert and oriented, arrived via ems from nursing home. he has had constant chest pain for 3 days. pain goes all the way across his chest. Denies having chest pain before, sob, cough, nausea, vomiting, chills, fever, or headache. NSR on monitor. Left hand in splint- punched a stud in the wall a week ago and broke my knuckles and a few bones . VSS. calm and cooperative. was play fighting with his sister tuesday and that was the day the pain started.
--- NOTE | 2023-05-24 16:43 | ECG_ITS ---
Test Reason : CHEST PAIN Blood Pressure : / mmHG Vent. Rate : 069 BPM Atrial Rate : 069 BPM P-R Int : 164 ms QRS Dur : 096 ms QT Int : 400 ms P-R-T Axes : 047 020 037 degrees QTc Int : 428 ms Normal sinus rhythm Normal ECG When compared with ECG of 11-AUG-2022 18:56, No significant change was found Referred By: Kenneth Olmedo Electronically Signed By:Zaki Graham
--- NOTE | 2023-05-24 16:52 | ED.CHESTPAIN ---
HPI - Chest Pain General Chief Complaint: Chest Pain Stated Complaint: CP X3 DAYS FROM [facility] PER EMS Time Seen by Provider: 05/24/23 16:18 Source: patient, RN notes reviewed and old records reviewed Mode of arrival: EMS Limitations: other (poor historian) History of Present Illness HPI narrative: 22-year-old male with past medical history significant for XXY like syndrome, seizure disorder, developmental delay presents for evaluation of left-sided chest pain. Patient arrives via EMS from a [facility]dc. Has had left-sided chest pain for last 3 days Patient states that his symptoms started ?after I was wrestling around with my sister. ? He does not remember actually being hit in the chest He denies any radiation of his pain His pain is worse if he ?presses on it or stands up. ? Patient reports that he has no associated symptoms including cough, shortness of breath, palpitations No other complaints or concerns Related Data Home Medications Medication Instructions Recorded Confirmed divalproex 500 mg tablet,delayed 2,000 mg PO BEDTIME 05/29/22 02/11/23 release guanfacine 4 mg tablet,extended 4 mg PO BEDTIME 05/29/22 02/11/23 release 24 hr melatonin 3 mg tablet 3 mg PO BEDTIME 05/29/22 02/11/23 propranolol 160 mg capsule,24 160 mg PO DAILY 05/29/22 02/11/23 hr,extended release quetiapine 400 mg tablet 800 mg PO BEDTIME 05/29/22 02/11/23 lorazepam 2 mg tablet 2 mg PO DAILY PRN Anxiety 08/20/22 02/11/23 acetaminophen 325 mg tablet 650 mg PO Q6H PRN Pain 02/11/23 02/11/23 chlorhexidine gluconate 0.12 % 15 ml buccal BEDTIME 02/11/23 02/11/23 mouthwash (Peridex) chlorpromazine 50 mg tablet 50 mg PO TID 02/11/23 02/11/23 fluoride (sodium) 1.1 % dental 1 appl dental BEDTIME 02/11/23 02/11/23 cream (Denta 5000 Plus) ibuprofen 800 mg tablet 800 mg PO BID PRN Pain 02/11/23 02/11/23 Previous Rx's Medication Instructions Recorded docusate sodium 100 mg capsule 100 mg PO BID PRN Constipation 03/04/23 #180 caps sennosides 8.6 mg tablet (senna) 8.6 mg PO BEDTIME PRN Constipation 05/06/23 #30 tabs Allergies Allergy/AdvReac Type Severity Reaction Status Date / Time methylphenidate Allergy Unknown UNKNOWN Verified 11/17/22 11:31 [From RITALIN] shrimp [SHRIMP] Allergy Unknown HIVES Verified 11/17/22 11:31 haloperidol [From Haldol] Allergy Involuntary Verified 11/17/22 11:31 Spasms Review of Systems Constitutional: Constitutional: Reports as per HPI, Denies chills, Denies fatigue, Denies fever(s) and Denies headache(s) ENT: Denies headache(s) Cardiovascular: Cardiovascular: Reports chest pain and Denies dyspnea Respiratory: Respiratory: Denies cough and Denies dyspnea Gastrointestinal: Gastrointestinal: Denies abdominal pain, Denies constipation and Denies vomiting Genitourinary: Genitourinary: Denies difficulty urinating and Denies dysuria Neurologic: Denies headache(s) and Denies focal weakness Endocrine: Endocrine: Denies fatigue PMFSH Past Medical History Medical History Adjustment disorder Chronic abdominal pain Developmental disability Dyspnea Intellectual developmental disorder, severe Seborrheic dermatitis Seizures XXYY syndrome Surgical History History of testicular surgery Family History Family History Father No problems noted. Mother Hypertension Diabetes Other History of brain cancer Social History Social History Household Members: Other Household Members Other:: fdc Housing: Other Do you presently have visiting nurse or other home services: No Alcohol intake: never Patient Tobacco Use Status: Never used Tobacco Tobacco use type: Cigarette Years Smoked: 16 years old Smoked in Last 30 Days: Yes e-Cigarette/Vaping Use: Never Used Second Hand Smoke Exposure: No Use of substances other than those prescribed or required for medical reasons: Yes Substance Use Type: Marijuana Advance Directives: No Advance Directives Information Provided: Yes service: No Current occupational status: disabled Cognitive needs: Yes Hearing needs: No Vision needs: No Physical Exam Vital Signs: Vital Signs: Last Vital Signs Temp 98.1 F 05/24/23 16:33 Pulse 80 05/24/23 16:33 Resp 18 05/24/23 16:33 BP 99/63 05/24/23 16:33 Pulse Ox 98 05/24/23 16:33 O2 Del Method Room Air 05/24/23 16:33 BMI result Body Mass Index 47.3 Const: General: healthy appearing, comfortable, no acute distress, alert and awake Nutritional Appearance: well nourished Orientation/consciousness: patient oriented x3 HEENT: Head: Yes normocephalic and Yes atraumatic Eyes: Eyelids: Yes eyelids normal Conjunctivae: conjunctivae normal Sclerae: sclerae normal Corneas: corneas normal Pupils: Equal, round and reactive pupils present EOM: EOMs intact bilaterally Neck: Neck: Yes full ROM Chest: Other: Tenderness left anterior chest without crepitus Resp: Effort & Inspection: normal respiratory effort, able to speak in complete sentences, no audible wheezes and not labored Auscultation: clear to auscultation bilaterally Cardio: Rate: regular rate Rhythm: regular rhythm Skin: General skin exam: no rashes or lesions noted and elasticity normal Neuro: General: patient oriented x3 Cranial nerves: Yes Equal, round and reactive pupils present and Yes Bilaterally intact EOM present Cognition (Neuro): normal cognition Extrem: Other: Left upper extremity is wrapped in ulnar gutter splint Course Reevaluation(s) Reevaluation #1: Patient's cardiac workup negative, he is stable for discharge at this time. Time: 18:47 Medications Administered Discontinued Medications Generic Name Dose Route Start Last Admin Trade Name Freq PRN Reason Stop Dose Admin Ibuprofen 600 mg 05/24/23 16:49 05/24/23 17:05 Ibuprofen 600 Mg Tablet PO 05/24/23 16:50 600 mg ONCE ONE Administration Medical Decision Making Medical Decision Making [facility] Narrative: 22-year-old male presents for evaluation of chest pain. He has a very poor historian. His chest pain is reproducible on exam. Will check basic labs, EKG, chest x-ray. Patient medicated with ibuprofen the meantime. He does not have risk factors for ACS Differential Diagnosis Chest pain Chest wall pain ACS Costochondritis Contusion Lab Data [facility] Lab Attestation statement: I reviewed the patient's lab results. (No significant lab abnormalities, troponin negative,) 05/24/23 17:32 05/24/23 17:32 Labs: Lab Results 05/24/23 05/24/23 05/24/23 Range/Units 17:32 17:32 17:32 WBC 7.5 (4.8-10.8) X10*3/uL RBC 4.82 (4.60-5.80) X10*6/uL Hgb 13.6 L (14.0-18.0) g/dl Hct 43.3 (42.0-52.0) % MCV 89.8 (80.0-98.0) fL MCH 28.2 (27.0-33.0) pg MCHC 31.4 (31.0-36.0) g/dl RDW 13.8 (11.0-16.0) % Plt Count 238 (160-400) X10*3/uL MPV 10.6 (9.4-12.4) fL Immature Gran % (Auto) 0.1 (0.0-0.4) % Neut % (Auto) 41.1 L (45-73) % Lymph % (Auto) 47.8 H (20-40) % [place] % (Auto) 4.0 (2-11) % Eos % (Auto) 6.3 H (0-4) % Baso % (Auto) 0.7 (0-2) % Lymph # (Auto) 3.6 (1.2-4.9) X10*3/uL [place] # (Auto) 0.3 (0.1-1.2) X10*3/uL Eos # (Auto) 0.5 H (0.0-0.4) X10*3/uL Baso # (Auto) 0.1 (0.0-0.2) X10*3/uL Abs Immat Gran (auto) 0.01 (0.00-0.03) X10*3/uL Absolute Neuts (auto) 3.1 (2.0-8.3) x10*3/uL Absolute Nucleated RBC 0.000 (0.0-0.012) X10*3/uL Nucleated RBC % (auto) 0.0 (0.0-0.2) /100WBC Sodium 141 (135-145) mmol/L Potassium 3.9 (3.3-5.1) mmol/L Chloride 107 (96-108) mmol/L Carbon Dioxide 24 (22-29) mmol/L Anion Gap 14 (12-20) BUN 9 (9-16) mg/dL Creatinine 0.82 (0.5-1.4) mg/dL Estim Creat Clear Calc 247.2 Estimated GFR > 60 Random Glucose 127 H (60-115) mg/dL Calcium 10.1 (8.4-10.2) mg/dL Total Bilirubin 0.5 (0.0-1.0) mg/dL AST 69 H (5-37) U/L ALT 84 H (0-40) U/L Alkaline Phosphatase 110 (39-117) U/L Troponin I High Sens < 2.7 (<3.5-35.0) ng/L Total Protein 7.8 (6.5-8.0) g/dL Albumin 3.8 (3.5-5.0) g/dL Lipase 33 (8-78) U/L Independent Interpretation I performed an independent interpretation of an: EKG (Sinus rhythm with a rate of 69 beats per minute. No ST segment changes.) and Plain X-Ray (No infiltrates or pneumothorax) Discharge Plan Discharge Clinical Impression: Left-sided chest wall pain Patient Disposition: Home, Self-Care Instructions: Chest Wall Pain (ED) Additional Instructions: Your workup in the emergency department today was reassuring. Includes your blood work, chest x-ray and EKG You may use ibuprofen or Tylenol as needed for pain Prescriptions: No Action docusate sodium 100 mg capsule 100 mg PO BID PRN (Reason: Constipation) Qty: 180 1RF sennosides [senna] 8.6 mg tablet 8.6 mg PO BEDTIME PRN (Reason: Constipation) Qty: 30 1RF lorazepam 2 mg tablet 2 mg PO DAILY PRN (Reason: Anxiety) acetaminophen 325 mg Tablet 650 mg PO Q6H PRN (Reason: Pain) ibuprofen 800 mg Tablet 800 mg PO BID PRN (Reason: Pain) chlorpromazine [Thorazine] 50 mg Tablet 50 mg PO TID fluoride (sodium) [Denta 5000 Plus] 1.1 % Cream 1 appl DENTAL BEDTIME chlorhexidine gluconate [Peridex] 0.12 % Mouthwash 15 ml BUCCAL BEDTIME quetiapine 400 mg tablet 800 mg PO BEDTIME propranolol 160 mg Capsule,Extended Release 24 Hr 160 mg PO DAILY melatonin 3 mg Tablet 3 mg PO BEDTIME divalproex 500 mg Tablet,Delayed Release (Dr/Ec) 2,000 mg PO BEDTIME guanfacine 4 mg Tablet Extended Release 24 Hr 4 mg PO BEDTIME
[2023-05-24] MEDS: Ibuprofen 600 MG TABLET PO (17:05)
[2023-05-24 17:35] LABS: MANUAL DIFF FLAG NO
[2023-05-24 17:38] LABS: Basophils Absolute Auto 0.1 X10*3/uL (0.0-0.2); Basophils Percent Auto 0.7 % (0-2); Eosinophils Absolute Auto 0.5 X10*3/uL (0.0-0.4); Eosinophils Percent Auto 6.3 % (0-4); Hematocrit 43.3 % (42.0-52.0); Hemoglobin 13.6 g/dl (14.0-18.0); Imm Gran Abs Auto 0.01 X10*3/uL (0.00-0.03); Imm Gran Pct Auto 0.1 % (0.0-0.4); Lymphocytes Absolute Auto 3.6 X10*3/uL (1.2-4.9); Lymphocytes Percent Auto 47.8 % (20-40); Mean Corpuscular HGB Conc 31.4 g/dl (31.0-36.0); Mean Corpuscular Hemoglobin 28.2 pg (27.0-33.0); Mean Corpuscular Volume 89.8 fL (80.0-98.0); Mean Platelet Volume 10.6 fL (9.4-12.4); Monocytes Absolute Auto 0.3 X10*3/uL (0.1-1.2); Neutrophils Absolute Auto 3.1 x10*3/uL (2.0-8.3); Neutrophils Percent Auto 41.1 % (45-73); Platelet Count 238 X10*3/uL (160-400); Red Blood Count 4.82 X10*6/uL (4.60-5.80); Red Cell Distribution Width 13.8 % (11.0-16.0); White Blood Count 7.5 X10*3/uL (4.8-10.8)
[2023-05-24 18:01] LABS: Alanine Aminotransferase 84 U/L (0-40); Albumin Level 3.8 g/dL (3.5-5.0); Alkaline Phosphatase 110 U/L (39-117); Anion Gap 14 (12-20); Aspartate Amino Transferase 69 U/L (5-37); Bilirubin Total 0.5 mg/dL (0.0-1.0); Blood Urea Nitrogen 9 mg/dL (9-16); Calcium 10.1 mg/dL (8.4-10.2); Carbon Dioxide 24 mmol/L (22-29); Chloride 107 mmol/L (96-108); Creatinine Clr Calc Pharmacy 247.2; Estimated Glomerular Filt Rate > 60; Glucose Random 127 mg/dL (60-115); Potassium 3.9 mmol/L (3.3-5.1); Sodium 141 mmol/L (135-145); Total Protein 7.8 g/dL (6.5-8.0)
[2023-05-24 18:02] LABS: Troponin-I High Sensitivity < 2.7 ng/L (<3.5-35.0)
[2023-05-24 18:38] LABS: Lipase 33 U/L (8-78)
--- NOTE | 2023-05-24 20:21 | PC.NURSE ---
pt assessed at d/c, denies any pain, calm, and cooperative with staff, ambulated gait steady
== END 2023-05-24 20:23 | disposition home or self-care (01) ==
PROVIDERS: Physician Assistant; Emergency Provider Student in an Organized Health Care Education/Training Program; PCP Nurse Practitioner Family
DX: R07.89 Other chest pain (principal); Z79.899 Other long term (current) drug therapy
CPT/HCPCS: 36415; 71045; 80053; 83690; 84484; 85025; 93005; 99283; 99284

== ENCOUNTER 2023-05-26 11:56 | Emergency (ER) | payer MEDICAID, SELFPAY ==
[2023-05-26 12:05] VITALS: BP 127/68; PULSE 81; RESP 18; TEMP 36.7; O2SAT 99; BMI 48.4
--- NOTE | 2023-05-26 12:11 | PC.NURSE ---
security at bedside for slip box changer. pt searched and allowed to wear shorts d/t not being able to fit into hospital pants.
[2023-05-26 13:03] LABS: MANUAL DIFF FLAG NO
[2023-05-26 13:05] LABS: Basophils Percent Auto 0.4 % (0-2); Eosinophils Absolute Auto 0.5 X10*3/uL (0.0-0.4); Eosinophils Percent Auto 6.5 % (0-4); Imm Gran Abs Auto 0.01 X10*3/uL (0.00-0.03); Imm Gran Pct Auto 0.1 % (0.0-0.4); Lymphocytes Absolute Auto 2.9 X10*3/uL (1.2-4.9); Lymphocytes Percent Auto 37.6 % (20-40); Mean Corpuscular HGB Conc 32.5 g/dl (31.0-36.0); Mean Corpuscular Volume 89.1 fL (80.0-98.0); Mean Platelet Volume 10.2 fL (9.4-12.4); Monocytes Absolute Auto 0.6 X10*3/uL (0.1-1.2); Monocytes Percent Auto 8.3 % (2-11); Neutrophils Absolute Auto 3.6 x10*3/uL (2.0-8.3); Neutrophils Percent Auto 47.1 % (45-73); Platelet Count 225 X10*3/uL (160-400); Red Blood Count 4.49 X10*6/uL (4.60-5.80); White Blood Count 7.7 X10*3/uL (4.8-10.8)
--- NOTE | 2023-05-26 13:20 | ED_ITS ---
HPI - Psych General Chief Complaint: Psychiatric Symptoms Stated Complaint: SI statements w/plan w/ knife from grp home Time Seen by Provider: 05/26/23 12:15 Source: patient Mode of arrival: EMS Limitations: no limitations History of Present Illness HPI Narrative: 22-year-old male with history of developmental disability, seizures, pseudoseizures, substance abuse, adjustment disorder, sleep apnea, intermittent explosive disorder in adulthood presents with suicidality. Patient reports a plan however he was not willing to reported to me. Per review of the file, he reports a plan to cut himself with a knife. He apparently grabbed a knife earlier today. There are no cuff walden. Patient denies any drug abuse or alcohol abuse at this time. His symptoms are noted to be severe. He reports persistent suicidality. There is no clear relieving or exacerbating features. He denies any depression or anxiety. Patient was evaluated in May of 2022 by her behavior health team. He had suicidality at that time with aggression at his residential facility. Related Data Home Medications Medication Instructions Recorded Confirmed divalproex 500 mg tablet,delayed 2,000 mg PO BEDTIME 05/29/22 05/26/23 release guanfacine 4 mg tablet,extended 4 mg PO BEDTIME 05/29/22 05/26/23 release 24 hr melatonin 3 mg tablet 3 mg PO BEDTIME 05/29/22 05/26/23 propranolol 160 mg capsule,24 160 mg PO DAILY 05/29/22 05/26/23 hr,extended release quetiapine 400 mg tablet 800 mg PO BEDTIME 05/29/22 05/26/23 lorazepam 2 mg tablet 2 mg PO DAILY PRN Anxiety 08/20/22 05/26/23 acetaminophen 325 mg tablet 650 mg PO Q6H PRN Pain 02/11/23 05/26/23 chlorhexidine gluconate 0.12 % 15 ml buccal BEDTIME 02/11/23 05/26/23 mouthwash (Peridex) chlorpromazine 50 mg tablet 50 mg PO TID 02/11/23 05/26/23 fluoride (sodium) 1.1 % dental 1 appl dental BEDTIME 02/11/23 05/26/23 cream (Denta 5000 Plus) ibuprofen 800 mg tablet 800 mg PO BID 02/11/23 05/26/23 sildenafil 50 mg tablet (Viagra) 50 mg PO DAILY PRN Erectile 05/26/23 05/26/23 Dysfunction Previous Rx's Medication Instructions Recorded docusate sodium 100 mg capsule 100 mg PO BID PRN Constipation 03/04/23 #180 caps sennosides 8.6 mg tablet (senna) 8.6 mg PO BEDTIME PRN Constipation 05/06/23 #30 tabs Allergies Allergy/AdvReac Type Severity Reaction Status Date / Time methylphenidate Allergy Unknown UNKNOWN Verified 11/17/22 11:31 [From RITALIN] shrimp [SHRIMP] Allergy Unknown HIVES Verified 11/17/22 11:31 haloperidol [From Haldol] Allergy Involuntary Verified 11/17/22 11:31 Spasms Review of Systems Review of Systems: CONSTITUTIONAL: Denies weight loss, fever and chills. HEENT: Denies changes in vision and hearing. RESPIRATORY: Denies SOB and cough. CV: Denies palpitations no CP. GI: Denies abdominal pain, nausea, vomiting and diarrhea. : Denies dysuria and urinary frequency. MSK: Denies myalgia and joint pain. SKIN: Denies rash and pruritus. NEUROLOGICAL: Denies headache and syncope. PSYCHIATRIC: See HPI All other ROS are negative unless in HPI PMFSH Past Medical History Medical History Adjustment disorder Chronic abdominal pain Developmental disability Dyspnea Intellectual developmental disorder, severe Seborrheic dermatitis Seizures XXYY syndrome Surgical History History of testicular surgery Family History Family History Father No problems noted. Mother Hypertension Diabetes Other History of brain cancer Social History Social History Household Members: Other Household Members Other:: residential Housing: Other Do you presently have visiting nurse or other home services: No Alcohol intake: never Patient Tobacco Use Status: Never used Tobacco Tobacco use type: Cigarette Years Smoked: 16 years old e-Cigarette/Vaping Use: Never Used Second Hand Smoke Exposure: No Substance Use Type: Marijuana Advance Directives: No Advance Directives Information Provided: Yes service: No Current occupational status: disabled Cognitive needs: Yes Hearing needs: No Vision needs: No Physical Exam Vital Signs: Vital Signs: Last Vital Signs Temp 98.8 F 05/26/23 14:36 Pulse 72 05/26/23 14:36 Resp 16 05/26/23 14:36 BP 116/63 05/26/23 14:36 Pulse Ox 95 05/26/23 14:36 O2 Del Method Room Air 05/26/23 14:36 BMI result Body Mass Index 48.4 GEN: Well developed, no acute distress, alert, oriented HEENT: Normocephalic, atraumatic, normal external ears, nose appears normal, no oropharyngeal edema or exudates Eyes: Normal to appearance Neck: Supple, no lymphadenopathy Respiratory: Talks in complete sentences, no respiratory distress, clear to auscultation bilaterally Cardiovascular: Regular rate and rhythm, no murmurs rubs or gallops Abdomen: Soft, nontender, nondistended, no guarding, no rebound Back: No CVA tenderness Extremities: No clubbing cyanosis or edema Neurologic: No focal neurologic deficits, cranial nerves 2-12 intact, strength is 5/5 bilaterally Skin: No rash Psych positive SI Course Reevaluation(s) Reevaluation #1: Patient was noted to have a pseudo-seizure. He has no postictal confusion, no tongue biting, no focal deficits. Time: 13:50 Reevaluation #2: Patient is medically clear for psychiatric evaluation. Will place patient in physician observation at this time. Time: 14:21 Reevaluation #3: Patient is pending a care team evaluation. Patient will be signed out to the oncoming provider. Patient remains in physician observation. Time: 15:58 Medications Administered Discontinued Medications Generic Name Dose Route Start Last Admin Trade Name Freq PRN Reason Stop Dose Admin Lorazepam 2 mg 05/26/23 13:33 05/26/23 13:53 Lorazepam 1 Mg Tablet PO 05/26/23 13:34 2 mg ONCE ONE Administration Medical Decision Making Medical Decision Making MDM Narrative: 22-year-old male with previous psychiatric history presents for suicidal ideation. He offers a plan. Examination reveals no focal deficits. Denies any additional complaints. Differential diagnosis includes suicidality, depression, anxiety, PTSD, adjustment disorder, mood disorder. Patient will need to be medically cleared for Behavioral Health evaluation. He will be under constant watch. Will re-evaluate patient frequently. Due to the persistency of his symptoms, is highly possible patient may warrant hospitalization. Differential Diagnosis Differential Diagnoses: The differential diagnosis associated with the presentation includes (See above) Admission/Observation Consideration of admission/observation: Escalation of care including admission/observation considered Consult Healthcare Provider Management of the patient was discussed with: Behavioral Health Provider Lab Data MDM Lab Attestation statement: I reviewed the patient's lab results. 05/26/23 12:59 05/26/23 12:59 Labs: Lab Results 05/26/23 05/26/23 05/26/23 Range/Units 12:59 12:59 12:59 WBC 7.7 (4.8-10.8) X10*3/uL RBC 4.49 L (4.60-5.80) X10*6/uL Hgb 13.0 L (14.0-18.0) g/dl Hct 40.0 L (42.0-52.0) % MCV 89.1 (80.0-98.0) fL MCH 29.0 (27.0-33.0) pg MCHC 32.5 (31.0-36.0) g/dl RDW 14.0 (11.0-16.0) % Plt Count 225 (160-400) X10*3/uL MPV 10.2 (9.4-12.4) fL Immature Gran % (Auto) 0.1 (0.0-0.4) % Neut % (Auto) 47.1 (45-73) % Lymph % (Auto) 37.6 (20-40) % [place] % (Auto) 8.3 (2-11) % Eos % (Auto) 6.5 H (0-4) % Baso % (Auto) 0.4 (0-2) % Lymph # (Auto) 2.9 (1.2-4.9) X10*3/uL [place] # (Auto) 0.6 (0.1-1.2) X10*3/uL Eos # (Auto) 0.5 H (0.0-0.4) X10*3/uL Baso # (Auto) 0.0 (0.0-0.2) X10*3/uL Abs Immat Gran (auto) 0.01 (0.00-0.03) X10*3/uL Absolute Neuts (auto) 3.6 (2.0-8.3) x10*3/uL Absolute Nucleated RBC 0.000 (0.0-0.012) X10*3/uL Nucleated RBC % (auto) 0.0 (0.0-0.2) /100WBC Sodium 140 (135-145) mmol/L Potassium 3.9 (3.3-5.1) mmol/L Chloride 108 (96-108) mmol/L Carbon Dioxide 24 (22-29) mmol/L Anion Gap 12 (12-20) BUN 12 (9-16) mg/dL Creatinine 0.75 (0.5-1.4) mg/dL Estim Creat Clear Calc 273.8 Estimated GFR > 60 Random Glucose 127 H (60-115) mg/dL Calcium 9.7 (8.4-10.2) mg/dL Total Bilirubin 0.4 (0.0-1.0) mg/dL AST 68 H (5-37) U/L ALT 78 H (0-40) U/L Alkaline Phosphatase 111 (39-117) U/L Total Protein 7.7 (6.5-8.0) g/dL Albumin 3.5 (3.5-5.0) g/dL Salicylates (15-30) mg/dL Acetaminophen (<30) mcg/mL Ethyl Alcohol < 10 mg/dL COVID-19 (JULISSA) Negative (Negative) COVID-19 Clin Com See Note 05/26/23 Range/Units 12:59 WBC (4.8-10.8) X10*3/uL RBC (4.60-5.80) X10*6/uL Hgb (14.0-18.0) g/dl Hct (42.0-52.0) % MCV (80.0-98.0) fL MCH (27.0-33.0) pg MCHC (31.0-36.0) g/dl RDW (11.0-16.0) % Plt Count (160-400) X10*3/uL MPV (9.4-12.4) fL Immature Gran % (Auto) (0.0-0.4) % Neut % (Auto) (45-73) % Lymph % (Auto) (20-40) % [place] % (Auto) (2-11) % Eos % (Auto) (0-4) % Baso % (Auto) (0-2) % Lymph # (Auto) (1.2-4.9) X10*3/uL [place] # (Auto) (0.1-1.2) X10*3/uL Eos # (Auto) (0.0-0.4) X10*3/uL Baso # (Auto) (0.0-0.2) X10*3/uL Abs Immat Gran (auto) (0.00-0.03) X10*3/uL Absolute Neuts (auto) (2.0-8.3) x10*3/uL Absolute Nucleated RBC (0.0-0.012) X10*3/uL Nucleated RBC % (auto) (0.0-0.2) /100WBC Sodium (135-145) mmol/L Potassium (3.3-5.1) mmol/L Chloride (96-108) mmol/L Carbon Dioxide (22-29) mmol/L Anion Gap (12-20) BUN (9-16) mg/dL Creatinine (0.5-1.4) mg/dL Estim Creat Clear Calc Estimated GFR Random Glucose (60-115) mg/dL Calcium (8.4-10.2) mg/dL Total Bilirubin (0.0-1.0) mg/dL AST (5-37) U/L ALT (0-40) U/L Alkaline Phosphatase (39-117) U/L Total Protein (6.5-8.0) g/dL Albumin (3.5-5.0) g/dL Salicylates < 5.0 L (15-30) mg/dL Acetaminophen < 17 (<30) mcg/mL Ethyl Alcohol mg/dL COVID-19 (JULISSA) (Negative) COVID-19 Clin Com Independent Historian Clinical information obtained from an independent historian. History obtained from or confirmed by: EMS External Record Review External record reviewed: Other (Previous psychiatric consultations) Discharge Plan Discharge Clinical Impression: Suicide ideation, Developmental disability, Intermittent explosive disorder in adult Patient Disposition: Still a Patient Prescriptions: No Action docusate sodium 100 mg capsule 100 mg PO BID PRN (Reason: Constipation) Qty: 180 1RF sennosides [senna] 8.6 mg tablet 8.6 mg PO BEDTIME PRN (Reason: Constipation) Qty: 30 1RF lorazepam 2 mg tablet 2 mg PO DAILY PRN (Reason: Anxiety) acetaminophen 325 mg Tablet 650 mg PO Q6H PRN (Reason: Pain) ibuprofen 800 mg Tablet 800 mg PO BID chlorpromazine [Thorazine] 50 mg Tablet 50 mg PO TID fluoride (sodium) [Denta 5000 Plus] 1.1 % Cream 1 appl DENTAL BEDTIME chlorhexidine gluconate [Peridex] 0.12 % Mouthwash 15 ml BUCCAL BEDTIME quetiapine 400 mg tablet 800 mg PO BEDTIME propranolol 160 mg Capsule,Extended Release 24 Hr 160 mg PO DAILY melatonin 3 mg Tablet 3 mg PO BEDTIME divalproex 500 mg Tablet,Delayed Release (Dr/Ec) 2,000 mg PO BEDTIME guanfacine 4 mg Tablet Extended Release 24 Hr 4 mg PO BEDTIME sildenafil [Viagra] 50 mg Tablet 50 mg PO DAILY PRN (Reason: Erectile Dysfunction) Rx Instructions: administer 30 minutes to 4 hours before activity Interventions: [place]-Suicide Risk Severity Scale Last Done: 05/26/23 12:07
[2023-05-26 13:21] LABS: COVID-19 Test Negative (Negative); IDNOW Serial# BCCEAD1C
[2023-05-26 13:27] LABS: Acetaminophen LAB < 17 mcg/mL (<30); Salicylate < 5.0 mg/dL (15-30)
[2023-05-26 13:28] LABS: Alanine Aminotransferase 78 U/L (0-40); Albumin Level 3.5 g/dL (3.5-5.0); Alkaline Phosphatase 111 U/L (39-117); Anion Gap 12 (12-20); Aspartate Amino Transferase 68 U/L (5-37); Bilirubin Total 0.4 mg/dL (0.0-1.0); Blood Urea Nitrogen 12 mg/dL (9-16); Calcium 9.7 mg/dL (8.4-10.2); Carbon Dioxide 24 mmol/L (22-29); Chloride 108 mmol/L (96-108); Creatinine Clr Calc Pharmacy 273.8; Estimated Glomerular Filt Rate > 60; Ethanol < 10 mg/dL; Glucose Random 127 mg/dL (60-115); Potassium 3.9 mmol/L (3.3-5.1); Sodium 140 mmol/L (135-145); Total Protein 7.7 g/dL (6.5-8.0)
--- NOTE | 2023-05-26 13:45 | PC.NURSE ---
pt requesting something to help him calm down med rec shows prn ativan 2mg once daily. pt refusing ativan when offered. states i want haldol haldol listed as an allergy. aware of situation. security notified d/t pt threatening to act out if he does not recieve IM haldol.
[2023-05-26] MEDS: LORazepam 1 MG TABLET 2 MG PO (13:53)
--- NOTE | 2023-05-26 13:56 | PC.NURSE ---
pt agreeable to heather pimentel
[2023-05-26 14:36] VITALS: BP 116/63; PULSE 72; RESP 16; TEMP 37.1; O2SAT 95
--- NOTE | 2023-05-26 16:50 | MHC.EDTECH ---
Pt agitated, vitals deferred at this time. RN aware
[2023-05-26] MEDS: LORazepam 1 MG TABLET PO (17:35)
--- NOTE | 2023-05-26 18:11 | MHC.CARE ---
Patient is a 22 year-old Citizen Of [place] speaking single young man who was brought to the ED by ambulance from his residential this morning after expressing suicidal ideation. He is well known to [facility] Behavioral Health/CARE Team for many similar presentations over the last four years. 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 CARE Team met with patient in room 9 in the main ED, he was sitting up in bed, angry, fixed stare but did agree to talk. Stated that this morning he woke up mad for no reason and felt suicidal, reported that he held a filet knife to his throat before staff took it from him. Denied having current suicidal ideation plan or intention. Advised patient that he could rest for a while and then could get him back to the residential. Spoke again later and patient stated that he was ready to go home, requested Haldol IM (has does this with frequency) which was denied because he is allergic to that medication. Call to group contract analyst Tk Treviño ([phone]), he also reported that patient woke up angry and wanted to be brought to [facility], was escalating and grabbing objects but redirected from destruction though could not be calmed despite the offer of alternative activities or talking about weekend plans. Accounts Receivable Assistant said that patient did not have a knife there are no sharp objects of any type accessible in the home. There is no indication that patient needs a higher level of care as his behavior is consistent with baseline of very low impulse control, poor frustration tolerance and he should return home with staff who understand his needs and can help manage behavior. Per distribution center manager, patient is welcome home at any time but no one is available to pick him up, [facility] will arrange ambulance will transport. ED provider, Dr Vega and wall mirror department supervisor Kiera Edmondson, [facility] consulted and in agreement with plan to discharge.
== END 2023-05-26 18:26 | disposition home or self-care (01) ==
PROVIDERS: Emergency Provider Emergency Medicine
DX: F63.81 Intermittent explosive disorder (principal); R45.851 Suicidal ideations; Z79.899 Other long term (current) drug therapy; Z20.822 Contact with and (suspected) exposure to COVID-19; Z20.828 Contact with and (suspected) exposure to other viral communicable diseases
CPT/HCPCS: 80053; 80143; 80179; 80307; 85025; 87635; 99285

== ENCOUNTER 2023-05-27 17:28 | Emergency (ER) | payer MEDICAID, SELFPAY ==
[2023-05-27 17:49] VITALS: BP 127/71; BP 144/73; PULSE 82; PULSE 85; RESP 20; TEMP 36.2; O2SAT 94; O2SAT 96; BMI 35.6
--- NOTE | 2023-05-27 18:00 | PC.NURSE ---
belongings in locker 8 glasses with pt
--- NOTE | 2023-05-27 19:23 | PC.NURSE ---
Assumed care of pt. pt lying on stretcher, no acute distress. Pt confided in this Rn that there is another resident at the shelter that is bothering him and causing him to become aggressive. This RN spoke to pt regarding alternative methods of distraction for himself to redirect his anger. Pt stated to this Rn that he now wants to go back to the facility and use these methods to avoid confrontation. plan to speak with .
--- NOTE | 2023-05-27 19:38 | ED_ITS ---
HPI - Psych General Chief Complaint: Psychiatric Symptoms Stated Complaint: si Time Seen by Provider: 05/27/23 17:39 Source: patient, EMS and other Mode of arrival: EMS History of Present Illness HPI Narrative: 22-year-old male with significant psychiatric history presents via EMS with complaints of SI which he also had yesterday. As per staff he was holding a knife to his throat. Related Data Home Medications Medication Instructions Recorded Confirmed divalproex 500 mg tablet,delayed 2,000 mg PO BEDTIME 05/29/22 05/26/23 release guanfacine 4 mg tablet,extended 4 mg PO BEDTIME 05/29/22 05/26/23 release 24 hr melatonin 3 mg tablet 3 mg PO BEDTIME 05/29/22 05/26/23 propranolol 160 mg capsule,24 160 mg PO DAILY 05/29/22 05/26/23 hr,extended release quetiapine 400 mg tablet 800 mg PO BEDTIME 05/29/22 05/26/23 lorazepam 2 mg tablet 2 mg PO DAILY PRN Anxiety 08/20/22 05/26/23 acetaminophen 325 mg tablet 650 mg PO Q6H PRN Pain 02/11/23 05/26/23 chlorhexidine gluconate 0.12 % 15 ml buccal BEDTIME 02/11/23 05/26/23 mouthwash (Peridex) chlorpromazine 50 mg tablet 50 mg PO TID 02/11/23 05/26/23 fluoride (sodium) 1.1 % dental 1 appl dental BEDTIME 02/11/23 05/26/23 cream (Denta 5000 Plus) ibuprofen 800 mg tablet 800 mg PO BID 02/11/23 05/26/23 sildenafil 50 mg tablet (Viagra) 50 mg PO DAILY PRN Erectile 05/26/23 05/26/23 Dysfunction Previous Rx's Medication Instructions Recorded docusate sodium 100 mg capsule 100 mg PO BID PRN Constipation 03/04/23 #180 caps sennosides 8.6 mg tablet (senna) 8.6 mg PO BEDTIME PRN Constipation 05/06/23 #30 tabs Allergies Allergy/AdvReac Type Severity Reaction Status Date / Time methylphenidate Allergy Unknown UNKNOWN Verified 11/17/22 11:31 [From RITALIN] shrimp [SHRIMP] Allergy Unknown HIVES Verified 11/17/22 11:31 haloperidol [From Haldol] Allergy Involuntary Verified 11/17/22 11:31 Spasms Review of Systems Review of Systems: Pertinent positives and negatives as stated in [facility] Past Medical History Source: nursing notes reviewed Medical History Adjustment disorder Chronic abdominal pain Developmental disability Dyspnea Intellectual developmental disorder, severe Seborrheic dermatitis Seizures XXYY syndrome Surgical History History of testicular surgery Family History Family History Father No problems noted. Mother Hypertension Diabetes Other History of brain cancer Social History Social History Household Members: Other Household Members Other:: shelter Housing: Other Do you presently have visiting nurse or other home services: No Alcohol intake: never Patient Tobacco Use Status: Never used Tobacco Tobacco use type: Cigarette Years Smoked: 16 years old Smoked in Last 30 Days: No e-Cigarette/Vaping Use: Never Used Second Hand Smoke Exposure: No Use of substances other than those prescribed or required for medical reasons: No Substance Use Type: Marijuana Advance Directives: No Advance Directives Information Provided: No service: No Current occupational status: disabled Cognitive needs: Yes Hearing needs: No Vision needs: No Physical Exam Vital Signs: Vital Signs: Last Vital Signs Temp 98.4 F 05/27/23 19:55 Pulse 72 05/27/23 19:55 Resp 16 05/27/23 19:55 BP 110/70 05/27/23 19:55 Pulse Ox 97 05/27/23 19:55 O2 Del Method Room Air 05/27/23 19:55 BMI result Body Mass Index 35.6 VITAL SIGNS: Reviewed. GENERAL: Well developed, well nourished, in no acute distress. HEAD: Normocephalic/atraumatic EYES: PERRLA, EOMI EARS: Ext canals without abnormality NOSE: Nares patent bilateral OROPHARYNX: no oral lesions noted, posterior pharynx clear NECK: Supple, no adenopathy LUNGS: Normal breath sounds. No adventitious sounds or accessory muscle use. SpO2<94> CARDIOVASCULAR: Regular rate and rhythm without noted murmurs ABDOMEN: Soft, non-tender, non-distended with bowel sounds. MUSCULOSKELETAL: No tenderness, deformities, or effusions noted on gross inspection. EXTREMITIES: No cyanosis, clubbing or edema. SKIN: Inspection of the skin reveals no rashes NEUROLOGIC: Alert and oriented x 4. Strength and sensation to light touch were grossly intact x 4. Medical Decision Making Medical Decision Making MDM Narrative: 22-year-old male with history and clinical presentation consistent with statements of suicidal ideation when specific interaction with staff at the [facility] facility. Patient was here yesterday with same complaints and cleared by the care team with acceptance of return by the shelter. Further discussion regarding the suicidal ideation with nursing staff and patient states he is no longer feeling suicidal on that it is related to specific staff members at the shelter. I agree with returning the patient to the shelter and we have discussed different techniques for deescalating the tension that patient feels while interacting with the staff member. Initially shelter was declining transport, risk assessment was performed by the care team and the care team specifically spoke with the shelter who will accept patient back to the facility and patient will be transported via ambulance. Discharge Plan Discharge Clinical Impression: Developmental disability, Intermittent explosive personality Patient Disposition: Xfer Other Additional Instructions: 1. Resume all home medications. Return to the ER for any worsening symptoms. Prescriptions: No Action docusate sodium 100 mg capsule 100 mg PO BID PRN (Reason: Constipation) Qty: 180 1RF sennosides [senna] 8.6 mg tablet 8.6 mg PO BEDTIME PRN (Reason: Constipation) Qty: 30 1RF lorazepam 2 mg tablet 2 mg PO DAILY PRN (Reason: Anxiety) acetaminophen 325 mg Tablet 650 mg PO Q6H PRN (Reason: Pain) ibuprofen 800 mg Tablet 800 mg PO BID chlorpromazine [Thorazine] 50 mg Tablet 50 mg PO TID fluoride (sodium) [Denta 5000 Plus] 1.1 % Cream 1 appl DENTAL BEDTIME chlorhexidine gluconate [Peridex] 0.12 % Mouthwash 15 ml BUCCAL BEDTIME quetiapine 400 mg tablet 800 mg PO BEDTIME propranolol 160 mg Capsule,Extended Release 24 Hr 160 mg PO DAILY melatonin 3 mg Tablet 3 mg PO BEDTIME divalproex 500 mg Tablet,Delayed Release (Dr/Ec) 2,000 mg PO BEDTIME guanfacine 4 mg Tablet Extended Release 24 Hr 4 mg PO BEDTIME sildenafil [Viagra] 50 mg Tablet 50 mg PO DAILY PRN (Reason: Erectile Dysfunction) Rx Instructions: administer 30 minutes to 4 hours before activity Interventions: [place]-Suicide Risk Severity Scale Last Done: 05/27/23 19:33
[2023-05-27 19:55] VITALS: BP 110/70; PULSE 72; RESP 16; TEMP 36.9; O2SAT 97
--- NOTE | 2023-05-27 21:09 | PC.NURSE ---
After initial assessment, [id number] Cut Off Saw Operator Metal Tk from [facility], and informed him that pt denying SI, and pt desiring to return to facility. Tk declined to accept due to insufficient staff at facility, and belief that pt was lying to hospital staff. Spoke with Care team requesting risk assessment for pt, and pending negative findings, plan to possibly return pt to facility pending MD approval, with no reason to maintain pt in hospital.
--- NOTE | 2023-05-27 21:12 | PC.NURSE ---
Pt facility accepting pt return with negative risk assessment findings.
--- NOTE | 2023-05-27 21:28 | MHC.EDTECH ---
Call out to [facility] [phone] to book BLS transport back to halfway.
[2023-05-27 21:40] VITALS: BP 121/68; PULSE 78; RESP 18; O2SAT 96
[2023-05-27 21:49] VITALS: BP 125/64; PULSE 72; RESP 16; TEMP 36.6; O2SAT 97
--- NOTE | 2023-05-27 21:56 | MHC.CARE ---
Pt is a 22 yo [place] speaking single male who receives DDS from a nursing home that he resides in, in [place], [place]. Pt is A&Ox4, wearing hospital attire, laying down in the hospital bed, and had his left arm in a splint with an nelida bandage from a previous injury. Pt was unkempt and malodorous, pt not knowing the last time he took a shower. Pt was fully engaged in the conversation, making good eye contact, and his voice was WNL. Pt stated that he is getting enough sleep and his appetite is WNL as well. Pt?s mood was relaxed and resting and his affect was congruent with his mood. Pt?s memory and concentration are intact at this time. Pt denies SI/HI/AVH with no plan or intent. Pt?s insight, judgment, and impulse control are all fair/good.? Pt is well known to the CARE Team per previous assessments. Today, pt was brought in by EMS from his nursing home due to him holding a knife to his neck. CARE Team was asked to complete a Risk assessment by the ED provider as the pt is now requesting to return to his DDS Retirement and is bessy for safety with the medical team. T/W asked the pt if he had SI/HI/AVH and the pt stated no. T/W asked about the knife earlier today and the pt stated that no one saw him with a knife, he told staff that he had done this. Pt stated that he never really held a knife to his neck, he only said that so he could leave the nursing home. T/W asked about what he would do if he was to feel unsafe and he stated that he would go to the staff member. Pt is planning on eating lasagna for dinner as he is starving and then plans on playing a video game. Pt stated that he can keep himself safe and if he feels as though he cannot do this then he will go to a staff member.? CARE Team informed the pt?s RN Adryan and ED provider Dr. Humphrey that the pt was cleared from a Risk standpoint at this time. The studio operations engineer in charge heard this and had t/w call the recreation programmer, Tk, and explain to him that the pt was being discharged. Tk stated that he had no staff to pickling grader the pt and asked if the hospital could send him back in a wheelchair van or an ambulance. associate professor of church music stated that this would be fine. Pt is ready for discharge and will take an ambulance ride home.
== END 2023-05-27 22:10 | disposition other institution (70) ==
PROVIDERS: Emergency Provider Student in an Organized Health Care Education/Training Program
DX: F89 Unspecified disorder of psychological development (principal); F63.81 Intermittent explosive disorder; Q98 Other sex chromosome abnormalities, male phenotype, not elsewhere classified; R45.851 Suicidal ideations; F12.90 Cannabis use, unspecified, uncomplicated; Z79.899 Other long term (current) drug therapy
CPT/HCPCS: 99284; 99285

== ENCOUNTER 2023-05-28 19:42 | Emergency (ER) | payer MEDICAID, OTHER, SELFPAY ==
[2023-05-28 19:48] VITALS: BP 126/63; BP 148/102; PULSE 97; PULSE 98; RESP 18; TEMP 36.1; O2SAT 97; O2SAT 99; BMI 33.2
--- NOTE | 2023-05-28 20:00 | PC.NURSE ---
this rn assumed care of pt [id number]. pt changed into hospital attire.security at bedside conducting belonging securement and exchange engineer.
[2023-05-28] MEDS: LORazepam 1 MG TABLET 2 MG PO (22:31)
[2023-05-28] MEDS: chlorproMAZINE HCl 25 MG TABLET PO (22:31)
[2023-05-28] MEDS: Divalproex Sodium ER 500 MG TAB.ER.24H 2000 MG PO (22:31)
[2023-05-28] MEDS: Melatonin 3 MG TABLET PO (22:31)
--- NOTE | 2023-05-28 23:31 | ED.PSYCH ---
HPI - Psych General Chief Complaint: Psychiatric Symptoms Stated Complaint: Crisis Time Seen by Provider: 05/28/23 21:47 Source: patient Mode of arrival: EMS Limitations: no limitations History of Present Illness HPI Narrative: 22-year-old male presents for possible suicidal ideation. Patient resides in a prison. He got angry and upset with staff making SI comments for approximately 1 hour. Patient felt ignored and called 911 himself. Patient had a pin in his hand and reportedly said he was going to stab himself. Upon EMS arrival, patient was, cooperative. Patient maintains SI. He points to his right arm raise been scratching self this cast 1 or to do self harming behavior. Patient reports having had a boxer fracture to the left hand. He is due to follow-up with hand surgery next week. Patient denies any alcohol or drug abuse. Related Data Home Medications Medication Instructions Recorded Confirmed chlorpromazine 25 mg tablet 25 mg PO TID 05/28/23 05/28/23 divalproex 500 mg tablet,extended 2,000 mg PO BEDTIME 05/28/23 05/28/23 release 24 hr docusate sodium 100 mg capsule 100 mg PO BID 05/28/23 05/28/23 guanfacine 4 mg tablet,extended 4 mg PO DAILY 05/28/23 05/28/23 release 24 hr lorazepam 2 mg tablet 2 mg PO BEDTIME PRN Anxiety 05/28/23 05/28/23 melatonin 3 mg tablet 3 mg PO BEDTIME PRN Insomnia 05/28/23 05/28/23 propranolol 160 mg capsule,24 160 mg PO DAILY 05/28/23 05/28/23 hr,extended release quetiapine 400 mg tablet 400 mg PO BID 05/28/23 05/28/23 sennosides 8.6 mg tablet (senna) 8.6 mg PO DAILY 05/28/23 05/28/23 Allergies Allergy/AdvReac Type Severity Reaction Status Date / Time methylphenidate Allergy Unknown UNKNOWN Verified 11/17/22 11:31 [From RITALIN] shrimp [SHRIMP] Allergy Unknown HIVES Verified 11/17/22 11:31 haloperidol [From Haldol] Allergy Involuntary Verified 11/17/22 11:31 Spasms Review of Systems Review of Systems: CONSTITUTIONAL: Denies weight loss, fever and chills. HEENT: Denies changes in vision and hearing. RESPIRATORY: Denies SOB and cough. CV: Denies palpitations no CP. GI: Denies abdominal pain, nausea, vomiting and diarrhea. : Denies dysuria and urinary frequency. MSK: Denies myalgia and joint pain. SKIN: Denies rash and pruritus. NEUROLOGICAL: Denies headache and syncope. PSYCHIATRIC: See HPI All other ROS are negative unless in HPI [facility] Past Medical History Medical History Adjustment disorder Chronic abdominal pain Developmental disability Dyspnea Intellectual developmental disorder, severe Seborrheic dermatitis Seizures XXYY syndrome Surgical History History of testicular surgery Family History Family History Father No problems noted. Mother Hypertension Diabetes Other History of brain cancer Social History Social History Household Members: Other Household Members Other:: prison Housing: Other Do you presently have visiting nurse or other home services: No Alcohol intake: never Patient Tobacco Use Status: Never used Tobacco Tobacco use type: Cigarette Years Smoked: 16 years old e-Cigarette/Vaping Use: Never Used Second Hand Smoke Exposure: No Substance Use Type: Marijuana Advance Directives: No Advance Directives Information Provided: No service: No Current occupational status: disabled Cognitive needs: Yes Hearing needs: No Vision needs: No Physical Exam Vital Signs: Vital Signs: Last Vital Signs Temp 96.9 F 05/28/23 19:48 Pulse 97 05/28/23 19:48 Resp 18 05/28/23 19:48 BP 126/63 05/28/23 19:48 Pulse Ox 97 05/28/23 19:48 O2 Del Method Room Air 05/28/23 19:48 BMI result Body Mass Index 33.2 GEN: Well developed, no acute distress, alert, oriented HEENT: Normocephalic, atraumatic, normal external ears, nose appears normal Eyes: Normal to appearance Neck: Supple, no lymphadenopathy Respiratory: Talks in complete sentences, no respiratory distress Extremities: No clubbing cyanosis or edema Neurologic: No focal neurologic deficits, cranial nerves 2-12 intact, gait normal Skin: No rash scratch walden on right forearm Course Course Course Narrative: Patient is medically clear for psychiatric evaluation. Patient will be placed in physician observation. Reevaluation(s) Reevaluation #1: Patient will be pending crisis evaluation. She will be signed on to the oncoming doctor at 7:00 a.m. this morning Time: 07:00 Medications Administered Generic Name Dose Route Start Last Admin Trade Name Freq PRN Reason Stop Dose Admin Chlorpromazine HCl 25 mg 05/28/23 22:30 05/28/23 22:31 Chlorpromazine Hcl 25 Mg Tablet PO 25 mg TID KATTY Administration Divalproex Sodium 2,000 mg 05/28/23 22:30 05/28/23 22:31 Divalproex Sodium Er 500 Mg Tab.Er.24h PO 2,000 mg BEDTIME KATTY Administration Lorazepam 2 mg 05/28/23 22:16 05/28/23 22:31 Lorazepam 1 Mg Tablet PO 2 mg BEDTIME PRN Administration Anxiety Melatonin 3 mg 05/28/23 22:16 05/28/23 22:31 Melatonin 3 Mg Tablet PO 3 mg BEDTIME PRN Administration Insomnia Medical Decision Making Medical Decision Making [facility] Narrative: 22-year-old male with previous psychiatric history presents for evaluation for possible SI. Patient says he wishes to harm self. Keeps scratching himself on his right volar forearm. Patient will be placed in our Behavioral Health Unit pending care team evaluation. Will medically clear the patient. Differential diagnosis includes factitious disorder, suicidal ideation, depression, anxiety, adjustment disorder, substance abuse, personality disorder Differential Diagnosis Differential Diagnoses: The differential diagnosis associated with the presentation includes (See above) Admission/Observation Consideration of admission/observation: Escalation of care including admission/observation considered Consult Healthcare Provider Management of the patient was discussed with: Behavioral Health Provider Lab Data [facility] Lab Attestation statement: I reviewed the patient's lab results. 05/28/23 20:17 05/28/23 20:17 Labs: Lab Results 05/28/23 05/28/23 05/28/23 Range/Units 20:17 20:17 20:17 WBC 10.4 (4.8-10.8) X10*3/uL RBC 4.83 (4.60-5.80) X10*6/uL Hgb 13.8 L (14.0-18.0) g/dl Hct 42.6 (42.0-52.0) % MCV 88.2 (80.0-98.0) fL MCH 28.6 (27.0-33.0) pg MCHC 32.4 (31.0-36.0) g/dl RDW 14.1 (11.0-16.0) % Plt Count 249 (160-400) X10*3/uL MPV 10.1 (9.4-12.4) fL Immature Gran % (Auto) 0.2 (0.0-0.4) % Neut % (Auto) 52.4 (45-73) % Lymph % (Auto) 35.9 (20-40) % [place] % (Auto) 7.5 (2-11) % Eos % (Auto) 3.7 (0-4) % Baso % (Auto) 0.3 (0-2) % Lymph # (Auto) 3.7 (1.2-4.9) X10*3/uL [place] # (Auto) 0.8 (0.1-1.2) X10*3/uL Eos # (Auto) 0.4 (0.0-0.4) X10*3/uL Baso # (Auto) 0.0 (0.0-0.2) X10*3/uL Abs Immat Gran (auto) 0.02 (0.00-0.03) X10*3/uL Absolute Neuts (auto) 5.5 (2.0-8.3) x10*3/uL Absolute Nucleated RBC 0.000 (0.0-0.012) X10*3/uL Nucleated RBC % (auto) 0.0 (0.0-0.2) /100WBC Sodium 141 (135-145) mmol/L Potassium 4.0 (3.3-5.1) mmol/L Chloride 106 (96-108) mmol/L Carbon Dioxide 21 L (22-29) mmol/L Anion Gap 18 (12-20) BUN 14 (9-16) mg/dL Creatinine 1.06 (0.5-1.4) mg/dL Estim Creat Clear Calc 158.4 Estimated GFR > 60 Random Glucose 104 (60-115) mg/dL Calcium 10.1 (8.4-10.2) mg/dL Total Bilirubin 0.8 (0.0-1.0) mg/dL AST 82 H (5-37) U/L ALT 97 H (0-40) U/L Alkaline Phosphatase 115 (39-117) U/L Total Protein 8.4 H (6.5-8.0) g/dL Albumin 3.9 (3.5-5.0) g/dL Salicylates < 5.0 L (15-30) mg/dL Urine Opiates Screen (Not Detect) Urine Fentanyl Screen (Not Detect) Acetaminophen < 17 (<30) mcg/mL Ur Barbiturates Screen (Not Detect) Ur Phencyclidine Scrn (Not Detect) Ur Amphetamines Screen (Not Detect) U Benzodiazepines Scrn (Not Detect) Urine Cocaine Screen (Not Detect) U Marijuana (THC) Screen (Not Detect) Ethyl Alcohol < 10 mg/dL 05/28/23 Range/Units 23:07 WBC (4.8-10.8) X10*3/uL RBC (4.60-5.80) X10*6/uL Hgb (14.0-18.0) g/dl Hct (42.0-52.0) % MCV (80.0-98.0) fL MCH (27.0-33.0) pg MCHC (31.0-36.0) g/dl RDW (11.0-16.0) % Plt Count (160-400) X10*3/uL MPV (9.4-12.4) fL Immature Gran % (Auto) (0.0-0.4) % Neut % (Auto) (45-73) % Lymph % (Auto) (20-40) % [place] % (Auto) (2-11) % Eos % (Auto) (0-4) % Baso % (Auto) (0-2) % Lymph # (Auto) (1.2-4.9) X10*3/uL [place] # (Auto) (0.1-1.2) X10*3/uL Eos # (Auto) (0.0-0.4) X10*3/uL Baso # (Auto) (0.0-0.2) X10*3/uL Abs Immat Gran (auto) (0.00-0.03) X10*3/uL Absolute Neuts (auto) (2.0-8.3) x10*3/uL Absolute Nucleated RBC (0.0-0.012) X10*3/uL Nucleated RBC % (auto) (0.0-0.2) /100WBC Sodium (135-145) mmol/L Potassium (3.3-5.1) mmol/L Chloride (96-108) mmol/L Carbon Dioxide (22-29) mmol/L Anion Gap (12-20) BUN (9-16) mg/dL Creatinine (0.5-1.4) mg/dL Estim Creat Clear Calc Estimated GFR Random Glucose (60-115) mg/dL Calcium (8.4-10.2) mg/dL Total Bilirubin (0.0-1.0) mg/dL AST (5-37) U/L ALT (0-40) U/L Alkaline Phosphatase (39-117) U/L Total Protein (6.5-8.0) g/dL Albumin (3.5-5.0) g/dL Salicylates (15-30) mg/dL Urine Opiates Screen Not Detected (Not Detect) Urine Fentanyl Screen Not Detected (Not Detect) Acetaminophen (<30) mcg/mL Ur Barbiturates Screen Not Detected (Not Detect) Ur Phencyclidine Scrn Not Detected (Not Detect) Ur Amphetamines Screen Not Detected (Not Detect) U Benzodiazepines Scrn Not Detected (Not Detect) Urine Cocaine Screen Not Detected (Not Detect) U Marijuana (THC) Screen POSITIVE H (Not Detect) Ethyl Alcohol mg/dL Independent Historian Clinical information obtained from an independent historian. History obtained from or confirmed by: EMS External Record Review External record reviewed: Other (Psychiatric consultation) Chronic Conditions Patient?s care impacted by: Other (Psychiatric medication) Social Determinants Patient?s care significantly limited by Social Determinants of Health including: Other Social Determinant of Health (long-term) Discharge Plan Discharge Clinical Impression: Disorder of intellectual development, Explosive personality disorder Patient Disposition: Still a Patient Prescriptions: No Action sennosides [senna] 8.6 mg tablet 8.6 mg PO DAILY propranolol 160 mg capsule,extended release 24 hr 160 mg PO DAILY chlorpromazine 25 mg tablet 25 mg PO TID divalproex 500 mg tablet extended release 24 hr 2,000 mg PO BEDTIME docusate sodium 100 mg capsule 100 mg PO BID guanfacine 4 mg tablet extended release 24 hr 4 mg PO DAILY lorazepam 2 mg tablet 2 mg PO BEDTIME PRN (Reason: Anxiety) melatonin 3 mg Tablet 3 mg PO BEDTIME PRN (Reason: Insomnia) quetiapine 400 mg tablet 400 mg PO BID Interventions: [place]-Suicide Risk Severity Scale Last Done: 05/28/23 23:47
--- NOTE | 2023-05-29 05:14 | PC.NURSE ---
Patient slept through the night, no distress observed/reported, care consult ordered, pending evaluation, medication compliant, VSS, behavior non concerning, will continue to monitor.
--- NOTE | 2023-05-29 09:55 | PC.NURSE ---
pt has been sleeping all morning, CARE team to bedside for eval but pt requesting to sleep more, CARE will f/u when awake, plan for pt to go to main ED when awake
[2023-05-29] MEDS: chlorproMAZINE HCl 25 MG TABLET PO (13:19)
[2023-05-29] MEDS: LORazepam 1 MG TABLET 2 MG PO (13:20)
[2023-05-29] MEDS: Propranolol HCL LA 80 MG CAP.SA.24H 160 MG PO (13:20)
[2023-05-29] MEDS: Sennosides 8.6 MG TABLET PO (13:20)
[2023-05-29 13:28] VITALS: BP 125/80; PULSE 88; RESP 20; O2SAT 94
--- NOTE | 2023-05-29 13:34 | PC.NURSE ---
awoke, ate lunch, medicated as ordered, awaiting steven from pharmacy, pt cooperative, states he does not feel safe going home, wants to go to [facility] , CARE team aware, will send back to main ed soon per care plan
--- NOTE | 2023-05-29 16:25 | PC.NURSE ---
pt sleeping. holding medication d/t previous shift late administrations. respirations equal and unlabored. sitter at bedside.
[2023-05-29] MEDS: Divalproex Sodium ER 500 MG TAB.ER.24H 2000 MG PO (21:01)
[2023-05-29] MEDS: Docusate Sodium 100 MG CAPSULE PO (21:02)
[2023-05-29] MEDS: QUEtiapine Fumarate 400 MG TABLET PO (21:50)
[2023-05-29 22:00] VITALS: BP 130/80; PULSE 88; RESP 18; TEMP 37; O2SAT 100
--- NOTE | 2023-05-30 00:29 | PC.NURSE ---
Assume care of pt in room ED 7 from RN. Pt is resting in bed, denies any SI or HI at the moment . Pt is with a 1:1 sitter for safety. Pt is calm, cooperative and is asking for food. Pt lung sounds are clear on auscultation, breathing unlabored. Chest rises equally, bilaterally, with clear lung sounds.
[2023-05-30] MEDS: Melatonin 3 MG TABLET PO (00:54)
[2023-05-30] MEDS: chlorproMAZINE HCl 25 MG TABLET PO ×3 (00:56→21:10)
[2023-05-30] MEDS: LORazepam 1 MG TABLET 2 MG PO ×2 (01:38→02:06)
[2023-05-30 01:50] VITALS: RESP 16
[2023-05-30] MEDS: diphenhydrAMINE HCL 25 MG CAPSULE 50 MG PO (02:05)
[2023-05-30 04:34] VITALS: BP 128/78; PULSE 70; RESP 16; TEMP 37; O2SAT 99
--- NOTE | 2023-05-30 09:55 | PC.NURSE ---
pt resting in bed with patient observer in place, respirations even and unlabored.
[2023-05-30] MEDS: guanFACINE HCl ER 2 MG TAB.ER.24H 4 MG PO (10:41)
[2023-05-30] MEDS: Propranolol HCL LA 80 MG CAP.SA.24H 160 MG PO (10:41)
[2023-05-30] MEDS: Sennosides 8.6 MG TABLET PO (10:42)
[2023-05-30] MEDS: QUEtiapine Fumarate 400 MG TABLET PO ×2 (10:42→21:10)
[2023-05-30] MEDS: Docusate Sodium 100 MG CAPSULE PO ×2 (10:42→21:10)
--- NOTE | 2023-05-30 10:46 | PC.NURSE ---
medicated per the mar, pt stating that he doesn't feel safe and that he has been scratching his arm off and on. patient observer at bedside
--- NOTE | 2023-05-30 10:49 | MHC.EDTECH ---
patient refused vitals states he just wants to sleep RN aware
--- NOTE | 2023-05-30 10:49 | MHC.EDTECH ---
although patient is calm at the moment he did state I know you guys don't want me to hurt myself, I feel like i'm going to hurt myself RN aware
--- NOTE | 2023-05-30 11:14 | PC.NURSE ---
complaining of headache, throat pain, and epigastric pain at this time
[2023-05-30] MEDS: Calcium Carbonate 750 MG TAB.CHEW 1500 MG PO (11:28)
--- NOTE | 2023-05-30 11:34 | MHC.EDTECH ---
patient stated he wants to kill himself, patient has increased aggitation RN AWARE
--- NOTE | 2023-05-30 14:51 | PC.NURSE ---
appears to be resting comfortably in bed, patient observer remains at bedside.
[2023-05-30 15:32] VITALS: BP 110/60; PULSE 73; RESP 18; TEMP 36.5; O2SAT 95
--- NOTE | 2023-05-30 16:45 | MHC.CARE ---
Call from patient's brother Deo Crabtree ([phone]), he is the contact lens molder for the family and would like to speak with the evaluating clinician to provide information. He and his are on the way here from [facility], heavy holiday traffic expect to arrive after 9pm, advised that visiting at that hour would be declined per hospital policy. Nonetheless they are planning to drive straight here.
--- NOTE | 2023-05-30 17:23 | MHC.CARE ---
CARE Team has been speaking to skilled nursing staff and meeting with patient, final disposition not reached today and he will remain in the ED for the time being.
--- NOTE | 2023-05-30 17:45 | PC.NURSE ---
pt angry about being moved out of room 7. hitting ajit, pt eventually agreeable, ambulated to 6h w steady gait, sitter remains in place for safety.
--- NOTE | 2023-05-30 19:10 | PC.NURSE ---
Received handoff N2N report from Graciela Woods RN
--- NOTE | 2023-05-30 19:59 | PC.NURSE ---
pt sleeping respirations even and unlabored no apparent distress 1:1 sitter remains at bedside will CTM
--- NOTE | 2023-05-30 20:34 | PC.NURSE ---
attempted to assess vs pt refused states he does not want to be in hallway bed and wants a room charge aware
--- NOTE | 2023-05-30 20:51 | PC.NURSE ---
pt scratching his arm causing himself to bleed, states he will continue to scratch himself if he does not get moved to the pod provider aware
--- NOTE | 2023-05-30 21:13 | PC.NURSE ---
called pharmacy, pharmacy to bring depakote per JAN to ED, depakote not in ED nor Pod Pyxis
--- NOTE | 2023-05-30 21:14 | PC.NURSE ---
pt requested ice cream Lindsay, PCT provided ice cream
[2023-05-30] MEDS: Divalproex Sodium ER 500 MG TAB.ER.24H 2000 MG PO (21:35)
--- NOTE | 2023-05-30 23:08 | PC.NURSE ---
pt sleeping no apparent distress respirations even and unlabored will CTM
--- NOTE | 2023-05-31 02:23 | PC.NURSE ---
pt resting quietly, no apparent distress requesting room, charge aware
--- NOTE | 2023-05-31 04:43 | PC.NURSE ---
pt sleeping no apparent distress respirations even and unlabored 1:1 sitter remains at bedside
--- NOTE | 2023-05-31 05:01 | MHC.EDTECH ---
Patient refused vitals at this time due to not being awake . I told him I'd be back at 6AM to do them and he was agreeable.
[2023-05-31 05:02] VITALS: RESP 16
[2023-05-31 06:16] VITALS: BP 103/60; PULSE 80; RESP 16; O2SAT 95
--- NOTE | 2023-05-31 06:29 | MHC.EDTECH ---
Patient vitals taken. Requested food, so Pt was provided with icecream per request, apple juice and a sandwich.
--- NOTE | 2023-05-31 08:49 | PC.NURSE ---
pt requesting to be moved to the POD at this time, informed pt there are no open rooms in the POD only the community area.
--- NOTE | 2023-05-31 09:38 | PC.NURSE ---
pt refused breakfast. reports he does not want any of his medications until he is moved into the POD
--- NOTE | 2023-05-31 09:59 | PC.NURSE ---
pt increasing in agitation, banging his fx L wrist against the bedside rail - pt continues to refuse meds. pt reporting that he is going to kill himself now if he is not moved into a room. Informed MD Kraus of pts unwillingness to take medications. plan to mvoe pt to rm 8 when that pt moves, pt reports he will then take his medications.
[2023-05-31] MEDS: chlorproMAZINE HCl 25 MG TABLET PO ×3 (10:52→20:09)
[2023-05-31] MEDS: Propranolol HCL LA 80 MG CAP.SA.24H 160 MG PO (10:52)
[2023-05-31] MEDS: guanFACINE HCl ER 2 MG TAB.ER.24H 4 MG PO (10:52)
[2023-05-31] MEDS: Docusate Sodium 100 MG CAPSULE PO ×2 (10:53→20:09)
[2023-05-31] MEDS: QUEtiapine Fumarate 400 MG TABLET PO ×2 (10:53→20:09)
[2023-05-31] MEDS: Sennosides 8.6 MG TABLET PO (10:53)
--- NOTE | 2023-05-31 11:12 | PC.NURSE ---
Adryan, CARE team, talking with pt
--- NOTE | 2023-05-31 18:34 | PC.NURSE ---
pt continues to ask to talk to the CARE team about going to [facility]. CARE team aware of pts wishes. pt otherwise calm and cooperative, appears to be sleeping on and off throughout the day. NAD. no complaints.
[2023-05-31 20:00] VITALS: BP 126/64; PULSE 84; RESP 18; TEMP 36.4; O2SAT 98
--- NOTE | 2023-05-31 20:01 | MHC.EDTECH ---
This tech assumed care of pt at 1900, Vitals taken and pt asked for Ice cream, This tech gave him two cups of Patient is resting comfortably at this time and this tech told pt to ring moreira if he feels like he is going to hurt himself. Sitter is at beside for safety
[2023-05-31] MEDS: Melatonin 3 MG TABLET PO (20:09)
[2023-05-31] MEDS: Divalproex Sodium ER 500 MG TAB.ER.24H 2000 MG PO (20:09)
[2023-05-31] MEDS: LORazepam 1 MG TABLET 2 MG PO (20:09)
--- NOTE | 2023-05-31 20:19 | PC.NURSE ---
2mg prn ativan given per order. Omnicell count wrong x2, verified with LUC Hobson for discrepancy count. Pharmacy made aware at this time
[2023-06-01 04:19] VITALS: RESP 16
[2023-06-01 06:21] VITALS: BP 97/62; PULSE 81; RESP 14; TEMP 36.6; O2SAT 96
--- NOTE | 2023-06-01 07:05 | PC.NURSE ---
Resumed care of pt this morning, he is currently sleeping, 1:1 sitter present. Safety measures in place at this time.
--- NOTE | 2023-06-01 08:54 | MHC.CARE ---
CARE Team speaks with Tk Quintin Whipple rn paralegal -([phone]) who called for an update on pt.? Update provided.? Mr. Ribeiro had the expectation that pt would have been discharged today as he has an appointment to have his hand looked at today.? Mr. Ribeiro was advised that it would be unlikely that pt would be discharged in time to make his appointment as a psych consult has been placed for today.
[2023-06-01] MEDS: Propranolol HCL LA 80 MG CAP.SA.24H 160 MG PO (10:13)
[2023-06-01] MEDS: QUEtiapine Fumarate 400 MG TABLET PO ×2 (10:13→21:07)
[2023-06-01] MEDS: chlorproMAZINE HCl 25 MG TABLET PO ×2 (10:14→21:07)
[2023-06-01] MEDS: Docusate Sodium 100 MG CAPSULE PO ×2 (10:14→21:07)
[2023-06-01] MEDS: Sennosides 8.6 MG TABLET PO (10:14)
--- NOTE | 2023-06-01 15:16 | MHC.CARE ---
Patient's disposition is inpatient psychiatric treatment, information faxed to [facility] for review. medication manager and patient's mother both updated and in agreement with the plan. Will remain in the ED for placement, if patient requests discharge he will need to be reevaluated by the CARE Team.
--- NOTE | 2023-06-01 20:15 | MHC.EDTECH ---
Brought patient snacks.
[2023-06-01 20:58] VITALS: BP 131/81; PULSE 94; RESP 17; TEMP 36.4; O2SAT 97
[2023-06-01] MEDS: Divalproex Sodium ER 500 MG TAB.ER.24H 2000 MG PO (21:07)
[2023-06-01] MEDS: LORazepam 1 MG TABLET 2 MG PO (21:07)
[2023-06-01] MEDS: Melatonin 3 MG TABLET PO (21:07)
--- NOTE | 2023-06-01 21:30 | PC.NURSE ---
Pt requesting to go into the pod for a low stim environment. This RN speaking to Kiera from the Care Team earlier in the night regarding Care Plan as Care Team suggesting pt remain within the Main ED. Kiera is understandable if transfer into the pod is warranted. Alex agreeable to transfer into the pod for a low stim environment to reduce risk of agitation and aggression. Pt sleeping throughout the night in NAD, calm and cooperative within pod and with staff. Plan to continue to monitor and discuss with Care Team and staff regularly.
[2023-06-02 06:00] VITALS: RESP 16
--- NOTE | 2023-06-02 06:28 | PC.NURSE ---
Patient slept though the night, no distress observed/reported, behavior in good control and non concerning during our shift, medication compliant, appetite good, elimination intact, labs completed/resulted, disposition per care team is section 12 DDS bed search no update on bed search, will continue to monitor.
[2023-06-02] MEDS: Docusate Sodium 100 MG CAPSULE PO ×2 (10:41→20:13)
[2023-06-02] MEDS: Propranolol HCL LA 80 MG CAP.SA.24H 160 MG PO (10:41)
[2023-06-02] MEDS: QUEtiapine Fumarate 400 MG TABLET PO ×2 (10:42→20:13)
[2023-06-02] MEDS: chlorproMAZINE HCl 25 MG TABLET PO ×3 (10:42→20:13)
[2023-06-02] MEDS: Sennosides 8.6 MG TABLET PO (10:42)
[2023-06-02] MEDS: guanFACINE HCl ER 2 MG TAB.ER.24H 4 MG PO (11:07)
[2023-06-02 11:42] LABS: Valproate 97.8 mcg/mL (50.0-100.0)
--- NOTE | 2023-06-02 11:42 | MHC.CARE ---
t/w reached out to [facility], they have received patient's assessment for the inpatient wait list. When asked roughly how long the wait list is, t/w was told they aren't able to give this information at this time.
[2023-06-02 11:44] LABS: Alanine Aminotransferase 48 U/L (0-40); Albumin Level 3.7 g/dL (3.5-5.0); Alkaline Phosphatase 117 U/L (39-117); Anion Gap 13 (12-20); Aspartate Amino Transferase 26 U/L (5-37); Bilirubin Total 0.3 mg/dL (0.0-1.0); Blood Urea Nitrogen 12 mg/dL (9-16); Calcium 9.7 mg/dL (8.4-10.2); Carbon Dioxide 25 mmol/L (22-29); Chloride 107 mmol/L (96-108); Cholesterol 170 mg/dL; Creatinine Clr Calc Pharmacy 209.9; Estimated Glomerular Filt Rate > 60; Glucose Random 154 mg/dL (60-115); HDL Cholesterol 33 mg/dL; LDL Cholesterol Calculated 99 mg/dl; Potassium 4.5 mmol/L (3.3-5.1); Sodium 140 mmol/L (135-145); Total Protein 7.9 g/dL (6.5-8.0); Triglycerides 190 mg/dL
--- NOTE | 2023-06-02 11:59 | PM.PSYCN ---
History of Present Illness Date of Service: 06/02/2023 Chief Complaint: Crisis Discussed with referring provider: Yes Sources of Information: patient interviewed, chart reviewed and crisis/core team assessment reviewed HPI Narrative: Mr. Casillas is a 22 year-old male with hx of XXYY syndrome, intellectual disability, explosive disorder who resides at detention. Pt was sent to [facility] due to increase agitation and suicidal ideation. Pt has hx of extensive explosive and combative behaviors. Care team following his case, per crisis, his mother concern that he appears to be more depressed than usual and worries about his safety. In the ED, pt continues to endorse depressed mood, suicidal ideation, did not disclose plan to this race and sports book writer. Pt endorses feeling depressed. He denies VH/AH. Thought content is concrete. He request to be admitted at [facility]. It appears that pt recently was prescribed adderall 10mg po daily which was discontinued. Pt currently on combination of depakote ER 2000mg po qhs- will check ammonia levels, note elevation in LFT. He is also on Seroquel 400mg po BID, propanolol ER 160mg po daily, guanfacine ER 4mg po daily--> all medication targeting mood instability, impulsive and explosive behaviors. Past Psychiatric History: -Pt has OP psychiatrist, Dr. Jen Purvis at [facility]. Has DDS services. Resides in [facility]. -Hx of IPLOC at [facility] due to aggression, agitation, behavioral disturbance in detention setting. [facility] Medical History Adjustment disorder Chronic abdominal pain Developmental disability Dyspnea Intellectual developmental disorder, severe Seborrheic dermatitis Seizures XXYY syndrome Surgical History History of testicular surgery Social History: -Pt resides in DDS residential through [facility]. Pt has 2 younger siblings, parents, and sees his family often. Prev resided at a S residential [facility] [id number].?' Diagnostics Vital Signs (24Hr): Vital Signs - 24 hr 06/01/23 20:58 06/02/23 06:00 Temperature 97.6 F Pulse Rate 94 Respiratory Rate 17 16 Blood Pressure 131/81 Pulse Oximetry 97 Oxygen Delivery Method Room Air BMI result Body Mass Index 33.2 Labs 05/28/23 20:17 06/02/23 11:13 Labs: Laboratory Results - last 48 hr 06/02/23 06/02/23 06/02/23 11:13 11:13 11:13 D-Dimer High Sensitivty Sodium 140 Potassium 4.5 Chloride 107 Carbon Dioxide 25 Anion Gap 13 BUN 12 Creatinine 0.80 Estim Creat Clear Calc 209.9 Estimated GFR > 60 Random Glucose 154 H Estimat Average Glucose Hemoglobin A1c % Calcium 9.7 Total Bilirubin 0.3 AST 26 ALT 48 H Alkaline Phosphatase 117 Ammonia 47 Total Protein 7.9 Albumin 3.7 Triglycerides 190 Cholesterol 170 LDL Cholesterol, Calc 99 HDL Cholesterol 33 Valproic Acid 97.8 06/02/23 06/02/23 11:13 11:13 D-Dimer High Sensitivty 240 Sodium Potassium Chloride Carbon Dioxide Anion Gap BUN Creatinine Estim Creat Clear Calc Estimated GFR Random Glucose Estimat Average Glucose 111 Hemoglobin A1c % 5.5 Calcium Total Bilirubin AST ALT Alkaline Phosphatase Ammonia Total Protein Albumin Triglycerides Cholesterol LDL Cholesterol, Calc HDL Cholesterol Valproic Acid Mental Status Exam Mental Status Exam Narrative: Appearance: MO, wearing hospital gown, in NAD Behavior: superficially cooperative Speech: clear, no delay in response, soft tone, spontaneous Psychomotor: no agitation or retardation noted TP: single word, poverty of thought TC: wanting to be admitted to [facility] SI: reports SI, no plan HI: none Mood: depressed Affect: intense-eye contact at times, mildly irritable VH/AH: denies Delusions: none Insight/judgment: fair x 2. Memory/cog: alert, oriented x 3. Medications Medications Current Medications Calcium Carbonate (Calcium Carbonate 750 Mg Tab.Chew) 1,500 mg PO QID PRN PRN Reason: dyspesia Last Admin: 05/30/23 11:28 Dose: 1,500 mg Chlorpromazine HCl (Chlorpromazine Hcl 25 Mg Tablet) 25 mg PO TID [facility] Last Admin: 06/02/23 10:42 Dose: 25 mg Divalproex Sodium (Divalproex Sodium Er 500 Mg Tab.Er.24h) 2,000 mg PO BEDTIME [facility] Last Admin: 06/01/23 21:07 Dose: 2,000 mg Docusate Sodium (Docusate Sodium 100 Mg Capsule) 100 mg PO BID [facility] Last Admin: 06/02/23 10:41 Dose: 100 mg Guanfacine HCl (Guanfacine Hcl Er 2 Mg Tab.Er.24h) 4 mg PO DAILY [facility] Last Admin: 06/02/23 11:07 Dose: 4 mg Lorazepam (Lorazepam 1 Mg Tablet) 2 mg PO BEDTIME PRN PRN Reason: Anxiety Last Admin: 06/01/23 21:07 Dose: 2 mg Melatonin (Melatonin 3 Mg Tablet) 3 mg PO BEDTIME PRN PRN Reason: Insomnia Last Admin: 06/01/23 21:07 Dose: 3 mg Propranolol HCl (Propranolol Hcl La 80 Mg Cap.Sa.24h) 160 mg PO DAILY [facility]; Protocol Last Admin: 06/02/23 10:41 Dose: 160 mg Quetiapine Fumarate (Quetiapine Fumarate 400 Mg Tablet) 400 mg PO BID [facility] Last Admin: 06/02/23 10:42 Dose: 400 mg Senna (Sennosides 8.6 Mg Tablet) 8.6 mg PO DAILY [facility] Last Admin: 06/02/23 10:42 Dose: 8.6 mg Allergies Allergies Allergy/AdvReac Type Severity Reaction Status Date / Time methylphenidate Allergy Unknown UNKNOWN Verified 11/17/22 11:31 [From RITALIN] shrimp [SHRIMP] Allergy Unknown HIVES Verified 11/17/22 11:31 haloperidol [From Haldol] Allergy Involuntary Verified 11/17/22 11:31 Spasms Assessment & Plan Assessment & Plan (1) Mood disorder: Status: Inactive Code(s): F39 - Unspecified mood [affective] disorder (2) Intermittent explosive disorder in adult: Status: Acute Code(s): F63.81 - Intermittent explosive disorder (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 Casillas is a 22 year-old male with intellectual disability, XXYY syndrome, explosive behaviors, brought to [facility] due to increase agitation and reports of depression and suicidal ideation. Per mother, pt appears more depressed than usual and states that she worries about his safety. Pt continues to endorse SI, asking for [facility] admission but declines medication changes. Additional labs ordered today- LFT improved. Ammonia 47. A1C 5%, TSH 1.7. PLAN 1. Continue bed search for further containment, stabilization and safety. 2. Continue current medications. Total time managing care of this patient today ____ minutes.
--- NOTE | 2023-06-02 12:35 | MHC.EDTECH ---
this pct attempted to obtain an EKG but this patient refused stated hes too tired will return soon RN aware
--- NOTE | 2023-06-02 12:46 | PC.NURSE ---
pt moved from the pod per his request, currently calm and cooperative and sleeping since his arrival sitter in place
--- NOTE | 2023-06-02 16:19 | PC.NURSE ---
pt is starting to get agitated, scratching his right arm with his finger nails, and is requesting a room with a tv, pt offered prn states he will take it and will be moved into room 8 once they are d/c
[2023-06-02] MEDS: LORazepam 1 MG TABLET 2 MG PO (16:23)
[2023-06-02 16:51] VITALS: BP 142/78; PULSE 79; RESP 16; TEMP 36.6; O2SAT 98
--- NOTE | 2023-06-02 16:52 | MHC.EDTECH ---
PATIENT ATE 4 ICE CREAM AND DRANK SOME WATER ,VITALS TAKEN AND IS STABLE ,PT USE BATHROOM VOID LARGE AMOUNT OF URINE ,PT RESTING TRYING TO SLEEP .
[2023-06-02] MEDS: Divalproex Sodium ER 500 MG TAB.ER.24H 2000 MG PO (20:13)
--- NOTE | 2023-06-02 20:13 | PC.NURSE ---
Pt medicated per MAR with night meds.
--- NOTE | 2023-06-02 21:25 | MHC.EDTECH ---
Assumed care of pt as clinical pharmacy technician at 1900 No distress at this time will Continue to monitor at this time.
[2023-06-02 21:34] VITALS: RESP 16
--- NOTE | 2023-06-03 02:23 | PC.NURSE ---
Patient slept though the night, no distress observed/reported, behavior in good control and non concerning during our shift, medication compliant, appetite good, elimination intact, labs completed/resulted, disposition per care team is section 12 DDS bed search no update on bed search, will continue to monitor. Patient self removed nelida bandage due to itch, patient was able to wiggle his left hand fingers without any pain, ROM intact, CMS +, provider made aware/okay to have it removed because X-ray is negative for fracture.
--- NOTE | 2023-06-03 07:45 | PC.NURSE ---
pt is sleeping resp even and unlabored.
--- NOTE | 2023-06-03 07:59 | MHC.CARE ---
RAD TEAM followed up with [facility] who informed t/w that they will not have an open bed until midweek next week; The director/nursing staff will have to review his case when a bed becomes available because he has been there before & his presentation along with their unit is very acute. His DDU bed search is exhausted and will resume tomorrow if deemed necessary.
--- NOTE | 2023-06-03 08:37 | MHC.CARE ---
CARE Team speaks with Tk Quintin Whipple trouble operator -([phone]) who called for an update on pt.? Update provided. Mr Ribeiro may require some advance notice should pt be discharged back to the [facility] as he will need to secure adequite staffing.
[2023-06-03 09:46] VITALS: BP 150/82; PULSE 87; RESP 16; TEMP 36.3; O2SAT 97
--- NOTE | 2023-06-03 10:15 | PC.NURSE ---
pt brought from pod to room 6, patient a&ox3, currently calm/compliant, pt c/o left hand pain/swelling, notable swelling to left hand, + csm/pulses, pt c/o 10/10 pain, spoke with dr. dinero- order for xray of hand to be placed as well as medication for pain. 1:1 sitter at bedside, call moreira within reach, will continue to monitor.
[2023-06-03] MEDS: Sennosides 8.6 MG TABLET PO (10:53)
[2023-06-03] MEDS: chlorproMAZINE HCl 25 MG TABLET PO ×3 (10:53→20:36)
[2023-06-03] MEDS: Docusate Sodium 100 MG CAPSULE PO ×2 (10:53→20:36)
--- NOTE | 2023-06-03 10:56 | PC.NURSE ---
medication administered per provider order.
--- NOTE | 2023-06-03 11:10 | PC.NURSE ---
Addendum entered by Scarlett Styles 06/03/23 11:13: propranolol and quatiapine not administered, pt now refusing and stating for me to leave him alone. Original Note: went to pod for quatiapine and propranolol, medication administered. still waiting on pharmacy to fill guanficine.
--- NOTE | 2023-06-03 12:09 | PC.NURSE ---
went into pt's room to reassess pain level after tylenol administration, pt sleeping comfortably in no apparent distress upon assessment, will assess once patient wakes up, call moreira placed within reach, will continue to monitor.
--- NOTE | 2023-06-03 13:29 | PC.NURSE ---
patient currently sleeping, 1:1 sitter at bedside, call moreira within reach will continue to monitor.
[2023-06-03 14:00] VITALS: RESP 20
--- NOTE | 2023-06-03 14:55 | PC.NURSE ---
pt alert and orientedx3, awoken from nap to reassess pain, pt states that the tylenol provided some relief and brought his pain down to a 7/10, pt refuses to take scheduled thorazine and told me to come back later, resting comfortably with the lights dimmed, call moreira placed within reach, will continue to monitor.
--- NOTE | 2023-06-03 15:08 | PC.NURSE ---
care team was notified that patient has been refusing his medications
--- NOTE | 2023-06-03 15:11 | PC.NURSE ---
pt refusing vitals
--- NOTE | 2023-06-03 15:15 | MHC.CARE ---
CARE Team received a phone call from the RN who stated that the pt was refusing medications and vitals. T/W went to the pt and asked him if he would take his medications and get his vitals done and he stated that he would. T/W informed the pt that the placement that he is requesting is not going to be ready until Tuesday at the earliest. Pt stated that this was fine and he would wait.
[2023-06-03 15:41] VITALS: BP 109/56; PULSE 88; RESP 18; TEMP 36.9; O2SAT 98
--- NOTE | 2023-06-03 15:44 | PC.NURSE ---
pt a&ox3, vss, pt spoke with member of the care team d/t refusing medication prior, pt changed his mind and has now taken his scheduled 3pm dose of thorazine, pt took medication without complications, requesting chips and icecream, lying back down comfortably with the lights dimmed, will check fridge for snacks and will continue to monitor.
[2023-06-03 17:26] VITALS: RESP 14
--- NOTE | 2023-06-03 17:26 | PC.NURSE ---
pt still sleeping showing no signs of distress, vs not taken d/t not wanting to disturb the pt while asleep but respiratory rate counted as 14, sitter placed bedside with the patient, call moreira placed within reach.
--- NOTE | 2023-06-03 18:55 | PC.NURSE ---
pt states that he is SI and HI at this time with a plan to hurt himself and others but does not want to share the details regarding his plan, pt also verbalizing that he wants to go home, 1:1 sitter being used for observation, call moreira placed within reach, pt resting comfortably, call moreira placed within reach.
[2023-06-03] MEDS: LORazepam 1 MG TABLET 2 MG PO (19:20)
[2023-06-03] MEDS: Melatonin 3 MG TABLET PO (19:20)
--- NOTE | 2023-06-03 19:20 | PC.NURSE ---
Assumed care for pt. Pt reports feeling agitated and wanting to hurt self. Does not describe a plan. Pt medicated as ordered and re-directed to the bedside with no difficulty. 1:1 sitter at bedside. MD aware. Will continue to monitor.
[2023-06-03] MEDS: Divalproex Sodium ER 500 MG TAB.ER.24H 2000 MG PO (20:36)
[2023-06-03] MEDS: QUEtiapine Fumarate 400 MG TABLET PO (20:36)
--- NOTE | 2023-06-03 20:40 | PC.NURSE ---
Pt calm and cooperative resting at the bedside in no apparent distress. PO meds given as ordered with no complications or difficulty. 1:1 sitter at bedside. Will continue to monitor.
[2023-06-03 22:20] VITALS: RESP 12
--- NOTE | 2023-06-03 22:20 | PC.NURSE ---
Pt sleeping in no apparent distress. Breaths are even regular and unlabored with equal chest rises. 1:1 sitter at bedside. Will continue to monitor.
--- NOTE | 2023-06-03 23:52 | MHC.EDTECH ---
Assumed care of pt as linen tech at 2300 No distress at this time will Continue to monitor at this time.
--- NOTE | 2023-06-04 02:34 | PC.NURSE ---
Pt sleeping at the bedside in no apparent distress. Breaths are even regular and unlabored with equal chest rises. 1:1 sitter at bedside. Will continue to monitor.
--- NOTE | 2023-06-04 05:11 | PC.NURSE ---
Pt continues to be sleeping at the bedside in no apparent distress. Breaths are even, regular, and unlabored with equal chest rises. 1:1 sitter at bedside. Will continue to monitor.
[2023-06-04 12:05] VITALS: BP 139/72; PULSE 108; RESP 18
[2023-06-04] MEDS: QUEtiapine Fumarate 400 MG TABLET PO ×2 (12:10→21:51)
[2023-06-04] MEDS: Propranolol HCL LA 80 MG CAP.SA.24H 160 MG PO (12:10)
[2023-06-04] MEDS: guanFACINE HCl ER 2 MG TAB.ER.24H 4 MG PO (12:10)
[2023-06-04] MEDS: Sennosides 8.6 MG TABLET PO (12:10)
[2023-06-04] MEDS: Docusate Sodium 100 MG CAPSULE PO ×2 (12:11→21:51)
[2023-06-04] MEDS: chlorproMAZINE HCl 25 MG TABLET PO ×3 (12:11→21:51)
--- NOTE | 2023-06-04 12:26 | PC.NURSE ---
AOx4. Calm, cooperative. Withdrawn. Took meds. Allowed BP to be taken. Resting. Upon assessment pt states to RN has a plan to kill self- does not disclose what his specific plan is, but that if given access to a means of killing himself he would do it. he also stated to RN that he has a general desire to kill people with knives, but does not describe more details. joyce in the care team notified at 12:20pm and advised rn to write note. Safety checks performed by Yg 1:1 bedside. Remains safe.
--- NOTE | 2023-06-04 12:30 | MHC.CARE ---
At approximately 1131, pt?s nurse advised CARE Team that pt has expressed a desire to return to his retirement.? CARE Team meets with pt, who stated he is ready to leave.? Pt expresses when asked that he feels he can be safe (?Yeah?).? CARE Team calls change control manager Tk to advise him of the aforementioned.? Mr. Ribeiro was unavailable so a message was left. Discharge was initially cleared with with prototype assembler electronics CARE Team clinician Lucie Le. At 1222 pt?s nurse?s preceptee contacted CARE Team and advised them that pt expressed to her that he is suicidal and homicidal with a plan to seize a weapon or weaponized an item not normally associated or intended to cause harm to self or others and complete suicide or kill others.? Pt also stated he would use a knife to harm himself or others. CARE Team contacted provider relations manager and advised him of the above. The bedsearch will continue.
[2023-06-04 14:00] VITALS: RESP 16
--- NOTE | 2023-06-04 15:33 | PC.NURSE ---
PT OBTAINED ACCESS TO A PEN, BEGAN MAKING VERBAL THREATS ABOUT HARMING SELF AND OTHERS. SECURITY ARRIVED AT BEDSIDE. PEN PRIED FROM PTS HAND, THOUGH HE DID NOT AT ANY POINT EXERT ANY PHYSICAL FORCE TO PREVENT US FROM EXTRACTING THE PEN OTHER THAN HAVING TIGHTENED FINGERS AROUND IT. PT REQUIRING VERBAL REDIRECTION AND PRN PO ATIVAN FOR BEHAVIOURAL ESCALATION. PT AGREEABLE TO TAKING RX, ABLE TO BE REDIRECTED BACK TO BED WITH PROMISE OF AN ICE CREAM. HAS RETURNED TO BEING CALM AND COOPERATIVE AT THIS TIME.
--- NOTE | 2023-06-04 16:22 | PC.NURSE ---
pt again becoming acutely agitated, asking to go to pod, immediately getting up and banging on pod door. security called to bedside. pt appears to be targeting this rn, posturing towards staff, when asked by staff what the problem is, pt points at this rn. pt ambulating back to bed w director security risk management, sitting in chair next to bed.
--- NOTE | 2023-06-04 17:51 | PC.NURSE ---
pt resting quietly after given ice cream per request. no respiratory distress, resp even/regular. alert. talks w/o issue. +CSM. 1:1 remains. declined vitals
[2023-06-04 20:05] VITALS: BP 119/76; PULSE 95; RESP 18; O2SAT 95
[2023-06-04] MEDS: Divalproex Sodium ER 500 MG TAB.ER.24H 2000 MG PO (21:50)
--- NOTE | 2023-06-04 22:07 | PC.NURSE ---
pt awake, calm, coopeartive, conversational, in hospital bed for increased comfort, vss, given pm meds. given warm blanket. fluids and snack at bedside for po intake
[2023-06-05] MEDS: Melatonin 3 MG TABLET PO (01:09)
--- NOTE | 2023-06-05 01:15 | PC.NURSE ---
This keno writer / runner assumed care of this Pt at 2300. Pt calm and cooperative laying in bed, denies any pain, reports not being able to sleep PRN med given as documented. 1:1 sitter at beside.
[2023-06-05 02:57] VITALS: RESP 16
[2023-06-05] MEDS: Propranolol HCL LA 80 MG CAP.SA.24H 160 MG PO (12:24)
[2023-06-05] MEDS: guanFACINE HCl ER 2 MG TAB.ER.24H 4 MG PO (12:24)
[2023-06-05] MEDS: chlorproMAZINE HCl 25 MG TABLET PO ×3 (12:25→21:47)
[2023-06-05] MEDS: Sennosides 8.6 MG TABLET PO (12:25)
[2023-06-05] MEDS: Docusate Sodium 100 MG CAPSULE PO ×2 (12:25→21:47)
[2023-06-05] MEDS: QUEtiapine Fumarate 400 MG TABLET PO ×2 (12:25→21:47)
--- NOTE | 2023-06-05 12:31 | PC.NURSE ---
pt reporting feeling very tired today. medicated per MAR. pt reporting SI/HI - HI toward no one in particular, just feel like hurting someone . pt asked t/w for the pen I have. informed pt of safety measures.
[2023-06-05 14:43] VITALS: BP 102/64; PULSE 84; RESP 16; TEMP 36.4; O2SAT 94
--- NOTE | 2023-06-05 14:46 | MHC.EDTECH ---
Patient stated I dont feel so good and when t/w asked further Pt states I feel like I'm going to have a seizure . Radha SHEARER PRINTED CIRCUIT BOARDS aware and in to see Pt. Vitals taken.
[2023-06-05 21:44] VITALS: BP 117/76; PULSE 89; RESP 14; TEMP 37; O2SAT 95
[2023-06-05] MEDS: Divalproex Sodium ER 500 MG TAB.ER.24H 2000 MG PO (21:47)
--- NOTE | 2023-06-05 21:59 | PC.NURSE ---
Calm and cooperative resting at the bedside. Medicated as ordered and tolerated well. Reports thoughts of SI and HI with no plan at this time. States I had a bad dream. Reports dream was about killing people when asked about the dream. 1:1 sitter at bedside. Provided with ice cream as requested. Will continue to monitor.
--- NOTE | 2023-06-05 22:34 | PC.NURSE ---
Pt reports not wanting to harm self or others. Reports I want to go home. Pt updated on plan of care. Calm and cooperative resting at the bedside.
[2023-06-06] MEDS: Melatonin 3 MG TABLET PO (00:09)
--- NOTE | 2023-06-06 00:15 | PC.NURSE ---
PT resting with sitter at the bedside. Requesting medication for sleep as pt is not able to fall asleep. Medicated with Melatonin prn. Tolerate well. Will continue to monitor.
[2023-06-06 05:26] VITALS: RESP 14
--- NOTE | 2023-06-06 07:13 | PC.NURSE ---
assumed care of pt at 0700, ate breakfast and is resting quietly.
[2023-06-06] MEDS: QUEtiapine Fumarate 400 MG TABLET PO ×2 (08:02→21:23)
[2023-06-06] MEDS: Sennosides 8.6 MG TABLET PO (08:02)
[2023-06-06] MEDS: Docusate Sodium 100 MG CAPSULE PO ×2 (08:02→21:23)
[2023-06-06] MEDS: Propranolol HCL LA 80 MG CAP.SA.24H 160 MG PO (08:02)
[2023-06-06] MEDS: chlorproMAZINE HCl 25 MG TABLET PO ×3 (08:02→21:23)
[2023-06-06] MEDS: guanFACINE HCl ER 2 MG TAB.ER.24H 4 MG PO (08:03)
--- NOTE | 2023-06-06 08:11 | PC.NURSE ---
gave pt morning medications, pt denies SI or HI and states I want to go home. , pt resting quietly.
--- NOTE | 2023-06-06 08:29 | MHC.CARE ---
T/w spoke with Coty Enriquez who stated she still has the referral for [facility] but there are no beds available today. She stated they are looking at possible open bed later in the week but that is not definite.
--- NOTE | 2023-06-06 14:57 | HO.PSYCHPN ---
Subjective Subjective Date of Service: 06/06/23 Reason For Visit: Crisis Interim History: follow up consult for pt seen on 06/02/23 met w/ pt; discussed with team; reviewed chart over weekend pt said he was feeling suicidal; took a pen and put it to his neck, which took staff intervention to retrieve...Pt on home meds and labs/levels WNL. This past March, pt was prescribed Adderall while at [facility]; it was continued on discharge and according to detention pt did very well, attending to ADL's, at groups, bathing, alert and out of bed in the morning (usually sleeps until afternoon)...and in behavioral control. Med was discontinued by outpt psychiatrist who at same time discharged patient from clinic; details are not clear. assisted staff wondering if can be retried. Reviewed masspatt and Adderall XL 10mg daily was indeed prescribed. Today, thinks it was helpful and agrees to restart. Given patients recent reported success on this medication, reported by staff who know him well and work with him daily, commercial underwriter agrees to restart this med in hopes it helps. Mental Status Exam Mental Status Exam Narrative: Appearance: lying in bed; sleepy but arousable; bare chest, shorts; NAD Behavior: superficially cooperative Speech: mumbled; Psychomotor: sleepy; TP: goal oriented; concrete; TC:SI SI: reports SI, no plan HI: none Mood: depressed Affect: intense-eye contact at times, mildly irritable VH/AH: +AH Delusions: none Insight/judgment: fair x 2. Memory/cog: alert, oriented x 3. Diagnostics Vital Signs (24Hr): Vital Signs - 24 hr 06/05/23 21:44 06/06/23 05:26 Temperature 98.6 F Pulse Rate 89 Respiratory Rate 14 14 Blood Pressure 117/76 Pulse Oximetry 95 Oxygen Delivery Method Room Air BMI result Body Mass Index 33.2 Labs 05/28/23 20:17 06/02/23 11:13 Imaging Radiology Impressions: ITS Impressions Hand/Wrist X-Ray 06/03/23 10:40 IMPRESSION: No acute bony pathology left hand and wrist. Medications Medications Current Medications Calcium Carbonate (Calcium Carbonate 750 Mg Tab.Chew) 1,500 mg PO QID PRN PRN Reason: dyspesia Last Admin: 05/30/23 11:28 Dose: 1,500 mg Chlorpromazine HCl (Chlorpromazine Hcl 25 Mg Tablet) 25 mg PO TID [facility] Last Admin: 06/06/23 08:02 Dose: 25 mg Divalproex Sodium (Divalproex Sodium Er 500 Mg Tab.Er.24h) 2,000 mg PO BEDTIME KATTY Last Admin: 06/05/23 21:47 Dose: 2,000 mg Docusate Sodium (Docusate Sodium 100 Mg Capsule) 100 mg PO BID [facility] Last Admin: 06/06/23 08:02 Dose: 100 mg Guanfacine HCl (Guanfacine Hcl Er 2 Mg Tab.Er.24h) 4 mg PO DAILY [facility] Last Admin: 06/06/23 08:03 Dose: 4 mg Lorazepam (Lorazepam 1 Mg Tablet) 2 mg PO BEDTIME PRN PRN Reason: Anxiety Last Admin: 06/02/23 16:23 Dose: 2 mg Melatonin (Melatonin 3 Mg Tablet) 3 mg PO BEDTIME PRN PRN Reason: Insomnia Last Admin: 06/06/23 00:09 Dose: 3 mg Propranolol HCl (Propranolol Hcl La 80 Mg Cap.Sa.24h) 160 mg PO DAILY [facility]; Protocol Last Admin: 06/06/23 08:02 Dose: 160 mg Quetiapine Fumarate (Quetiapine Fumarate 400 Mg Tablet) 400 mg PO BID [facility] Last Admin: 06/06/23 08:02 Dose: 400 mg Senna (Sennosides 8.6 Mg Tablet) 8.6 mg PO DAILY [facility] Last Admin: 06/06/23 08:02 Dose: 8.6 mg Allergies Allergies Allergy/AdvReac Type Severity Reaction Status Date / Time methylphenidate Allergy Unknown UNKNOWN Verified 11/17/22 11:31 [From RITALIN] shrimp [SHRIMP] Allergy Unknown HIVES Verified 11/17/22 11:31 haloperidol [From Haldol] Allergy Involuntary Verified 11/17/22 11:31 Spasms Assessment & Plan Assessment & Plan (1) Mood disorder: Status: Inactive Code(s): F39 - Unspecified mood [affective] disorder (2) Intermittent explosive disorder in adult: Status: Acute Code(s): F63.81 - Intermittent explosive disorder (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 Casillas is a 22 year-old male with intellectual disability, XXYY syndrome, explosive behaviors, brought to [facility] ED due to increase agitation and reports of depression and suicidal ideation. Per mother, pt appears more depressed than usual and states that she worries about his safety. Pt continues to endorse SI, asking for [facility] admission but declines medication changes. Additional labs ordered today- LFT improved. Ammonia 47. A1C 5%, TSH 1.7. follow up consult for pt seen on 06/02/23 met w/ pt; discussed with team; reviewed chart over weekend pt said he was feeling suicidal; took a pen and put it to his neck, which took staff intervention to retrieve...Pt on home meds and labs/levels WNL. This past March, pt was prescribed Adderall while at [facility]; it was continued on discharge and according to detention pt did very well, attending to ADL's, at groups, bathing, alert and out of bed in the morning (usually sleeps until afternoon)...and in behavioral control. Med was discontinued by outpt psychiatrist who at same time discharged patient from clinic; details are not clear. assisted staff wondering if can be retried. Reviewed masspatt and Adderall XL 10mg daily was indeed prescribed. Today, thinks it was helpful and agrees to restart. Given patients recent reported success on this medication, reported by staff who know him well and work with him daily, commercial underwriter agrees to restart this med in hopes it helps. PLAN START Adderall XL 10mg daily; helped mood and behaviors in recent past. Continue bed search for further containment, stabilization and safety. Continue current medications. Patient educated on: diagnosis and medication risk/benefits Informed Consent: further education needed Reason for continued inpatient stay Substantial Risk for: inability to function Time Spent With Patient Time: Total time managing care of this patient today ____ minutes.
--- NOTE | 2023-06-06 15:27 | PC.NURSE ---
pt continues to deny SI or HI, calm and cooperative, meds given as ordered.
--- NOTE | 2023-06-06 18:05 | PC.NURSE ---
when asked how pt was he was doing he stated I want to hurt myself.
[2023-06-06 20:20] VITALS: BP 131/65; PULSE 84; RESP 18; O2SAT 95
[2023-06-06] MEDS: Divalproex Sodium ER 500 MG TAB.ER.24H 2000 MG PO (21:23)
[2023-06-06 22:10] VITALS: RESP 18
[2023-06-07] MEDS: Melatonin 3 MG TABLET PO ×2 (04:22→17:11)
--- NOTE | 2023-06-07 07:09 | PC.NURSE ---
resting quietly in bed, respirations even and unlabored no signs/symptoms of distress. patient observer at bedside.
--- NOTE | 2023-06-07 09:10 | PC.NURSE ---
pt refused all meds, would not answer any questions or look toward nurse. Pt asked this nurse if he could have that pen , no pen was visible on nurse. Pt told nurse to come back never After leaving room, pt attempted to wrap callbell cord around neck, security was called, pt was not combative and all cords were removed from the room.
--- NOTE | 2023-06-07 10:31 | PC.NURSE ---
pt sleeping, 1:1 at bedside. will ctm
--- NOTE | 2023-06-07 10:49 | MHC.CARE ---
RAD Team conducted a [facility] bed search for this individual and unfortunately [facility] does not have any availability today. He will remain on their waitlist until a bed opens up for them to review his case. RAD will follow up tomorrow and continue bed search if deemed appropriate.
--- NOTE | 2023-06-07 11:14 | MHC.CARE ---
donor relations manager Tk [place] updated on pt's status.
[2023-06-07 13:22] VITALS: BP 112/78; PULSE 90; RESP 18; TEMP 36.6; O2SAT 95
[2023-06-07] MEDS: guanFACINE HCl ER 2 MG TAB.ER.24H 4 MG PO (13:29)
[2023-06-07] MEDS: chlorproMAZINE HCl 25 MG TABLET PO ×2 (13:29→21:19)
[2023-06-07] MEDS: Propranolol HCL LA 80 MG CAP.SA.24H 160 MG PO (13:29)
[2023-06-07] MEDS: Docusate Sodium 100 MG CAPSULE PO ×2 (13:29→21:20)
[2023-06-07] MEDS: Dextroamphetamine/Amphetamine XR 10 MG CAP.ER.24H PO (13:29)
[2023-06-07] MEDS: QUEtiapine Fumarate 400 MG TABLET PO ×2 (13:30→21:20)
[2023-06-07] MEDS: Sennosides 8.6 MG TABLET PO (14:00)
--- NOTE | 2023-06-07 14:04 | PC.NURSE ---
pt asserted that he would take morning meds. 0900 meds administered 4 hours late. will chart against 1500 meds and communicate with oncoming team about timing the next meds.
--- NOTE | 2023-06-07 14:59 | PC.NURSE ---
1500 thorazine not given by AM dose given late
--- NOTE | 2023-06-07 17:11 | PC.NURSE ---
pt requested his sleelp medicated per [employer] authorization, gave PRN melatonin now
[2023-06-07] MEDS: Divalproex Sodium ER 500 MG TAB.ER.24H 2000 MG PO (21:19)
[2023-06-07] MEDS: Calcium Carbonate 750 MG TAB.CHEW 1500 MG PO (21:48)
--- NOTE | 2023-06-07 21:50 | PC.NURSE ---
Addendum entered by Fabiano Chatman 06/07/23 21:51: assumed care of pt at 2100. Original Note: pt requesting tums, medicated per PRN order, pt resting quietly, 1:1 at bedside.
--- NOTE | 2023-06-07 21:57 | PC.NURSE ---
pt ambulated to bathroom and has small amount of red blood in the tolet. no stool noted. Fabiano made aware.
[2023-06-07 22:39] VITALS: BP 129/79; PULSE 102; RESP 20; TEMP 36.2; O2SAT 95
[2023-06-07] MEDS: LORazepam 1 MG TABLET 2 MG PO (23:59)
[2023-06-08 04:08] VITALS: BP 134/76; PULSE 89; RESP 17; TEMP 36.3; O2SAT 97
--- NOTE | 2023-06-08 06:42 | PC.NURSE ---
Patient slept through the night, no distress observed/reported, behavior non concerning, care team disposition is section 12 inpatient [facility] bed search, awaiting placement at [facility], medication compliant, halfway called per patient request spoke with Tk agreed do bring his cloths to the ED, VSS, will continue to monitor.
[2023-06-08] MEDS: guanFACINE HCl ER 2 MG TAB.ER.24H 4 MG PO (08:11)
[2023-06-08] MEDS: Dextroamphetamine/Amphetamine XR 10 MG CAP.ER.24H PO (08:11)
[2023-06-08] MEDS: QUEtiapine Fumarate 400 MG TABLET PO ×2 (08:11→22:16)
[2023-06-08] MEDS: Propranolol HCL LA 80 MG CAP.SA.24H 160 MG PO (08:11)
[2023-06-08] MEDS: chlorproMAZINE HCl 25 MG TABLET PO ×3 (08:11→22:15)
[2023-06-08] MEDS: Docusate Sodium 100 MG CAPSULE PO ×2 (08:14→22:16)
[2023-06-08] MEDS: Sennosides 8.6 MG TABLET PO (08:29)
[2023-06-08 14:46] VITALS: BP 105/64; PULSE 86; RESP 20; O2SAT 99
--- NOTE | 2023-06-08 15:53 | PC.NURSE ---
hospital bed provided for pt per pt request. patient observer at bedside
--- NOTE | 2023-06-08 20:03 | PC.NURSE ---
Pt requested Tk from his program. Called Tk who said he cannot come in tonight but will try to make it in tomorrow afternoon.
[2023-06-08] MEDS: Divalproex Sodium ER 500 MG TAB.ER.24H 2000 MG PO (21:45)
[2023-06-08] MEDS: LORazepam 2 MG/ML VIAL IM (23:38)
[2023-06-08] MEDS: OLANZapine 10 MG VIAL IM (23:39)
--- NOTE | 2023-06-08 23:45 | PC.NURSE ---
pt became anxious, denies SI, requested IM medications ,Ativan and Zyprexa, tolerated IM injections.
--- NOTE | 2023-06-09 00:34 | PC.NURSE ---
pt was in the bathroom across from his room and came out with 3 D batteries. sitter was present and pt gave them to her with no problems.
--- NOTE | 2023-06-09 06:29 | PC.NURSE ---
pt [id number] after administration medication. pt calm, cooperative slept most of the night, sitter at bedside
--- NOTE | 2023-06-09 07:54 | MHC.CARE ---
@ 262... Called [facility], manager unit has referral, no bed available today, unsure when bed will be available. Will call when a bed becomes available.
--- NOTE | 2023-06-09 11:30 | MHC.EDTECH ---
this tech eloy
--- NOTE | 2023-06-09 11:30 | MHC.EDTECH ---
t/w assisted pt with shower and full linen exchange teller once he came to pod. PT stated that his program keeps forgetting to bring him clean clothes. and was agitated about that/ t/w also washed and returned clothes to pt.
--- NOTE | 2023-06-09 12:23 | PC.NURSE ---
pt requesting IM medication to sleep. pt has been resting with eyes closed, respirations even and unlabored, NAD.
[2023-06-09] MEDS: chlorproMAZINE HCl 25 MG TABLET PO ×2 (13:49→21:05)
[2023-06-09] MEDS: Calcium Carbonate 750 MG TAB.CHEW 1500 MG PO (13:51)
--- NOTE | 2023-06-09 17:58 | PC.NURSE ---
at approx 1430 pt rpeorted SI statements and grabbed his call moreira and wrapped it around his neck. pt not reporting needs at this time, Jason Babin at bedside to speak with pt
[2023-06-09 18:21] LABS: MANUAL DIFF FLAG NO
[2023-06-09 18:24] LABS: Basophils Percent Auto 0.3 % (0-2); Eosinophils Absolute Auto 0.5 X10*3/uL (0.0-0.4); Eosinophils Percent Auto 5.4 % (0-4); Hemoglobin 13.3 g/dl (14.0-18.0); Imm Gran Abs Auto 0.04 X10*3/uL (0.00-0.03); Imm Gran Pct Auto 0.4 % (0.0-0.4); Lymphocytes Absolute Auto 3.8 X10*3/uL (1.2-4.9); Mean Corpuscular HGB Conc 32.4 g/dl (31.0-36.0); Mean Corpuscular Hemoglobin 29.5 pg (27.0-33.0); Mean Corpuscular Volume 90.9 fL (80.0-98.0); Monocytes Absolute Auto 0.9 X10*3/uL (0.1-1.2); Neutrophils Absolute Auto 4.2 x10*3/uL (2.0-8.3); Neutrophils Percent Auto 44.9 % (45-73); Platelet Count 198 X10*3/uL (160-400); Red Blood Count 4.51 X10*6/uL (4.60-5.80); Red Cell Distribution Width 13.8 % (11.0-16.0); White Blood Count 9.4 X10*3/uL (4.8-10.8)
[2023-06-09 18:38] LABS: Alanine Aminotransferase 45 U/L (0-40); Albumin Level 3.5 g/dL (3.5-5.0); Alkaline Phosphatase 111 U/L (39-117); Anion Gap 12 (12-20); Aspartate Amino Transferase 51 U/L (5-37); Bilirubin Total 0.3 mg/dL (0.0-1.0); Blood Urea Nitrogen 10 mg/dL (9-16); Calcium 9.5 mg/dL (8.4-10.2); Carbon Dioxide 27 mmol/L (22-29); Chloride 104 mmol/L (96-108); Creatinine Clr Calc Pharmacy 204.8; Estimated Glomerular Filt Rate > 60; Glucose Random 178 mg/dL (60-115); Lipase 38 U/L (8-78); Potassium 4.1 mmol/L (3.3-5.1); Sodium 139 mmol/L (135-145); Total Protein 7.5 g/dL (6.5-8.0)
--- NOTE | 2023-06-09 18:41 | PC.NURSE ---
pt reporting irritability becuase he reports his staff person Laura was supposed to come from the [facility] today and visit him. pt stating that if he doesnt come he is going to do something and it isnt going to be good for us . pt reports feeling this way because he does not like when promises get broken. call placed to Tk from [facility], left message
[2023-06-09 18:42] VITALS: BP 113/59; PULSE 98; RESP 14; TEMP 37.2; O2SAT 95
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
--- NOTE | 2023-06-09 19:04 | PC.NURSE ---
pt informed this credit underwriter, I want you to know if I kill myself its on you . pt reporting increased thoughts of harming himself because he has not heard back from [facility] worker [facility].
--- NOTE | 2023-06-09 19:58 | PC.NURSE ---
Pt calm and cooperative reports I want to go home. Kiera from Behavioral health at bedside. Plan of care discussed with pt. Pt agrees with plan and desires to move to the pod at this time. Charge nurse aware.
--- NOTE | 2023-06-09 20:21 | MHC.CARE ---
CARE Team initiates a discussion with sas programmer Tk regarding pt's request to be discharged to the program. Tk agrees to reach out to the team and connect with the CARE Team tomorrow regarding a possible safety and transition plan back to the [facility] instead of waiting for [facility], which could take up to 1 month. Tk agrees that pt will continue to have behavioral and impulse control issues as part of his baseline functioning, however he continues to voices some concern for pt's safety. CARE Team will continue to work with pt's team from [facility] and [facility] to work toward discharge as safe and appropriate while also keeping him on [facility] waitlist.
[2023-06-09] MEDS: Divalproex Sodium ER 500 MG TAB.ER.24H 2000 MG PO (21:04)
[2023-06-09] MEDS: QUEtiapine Fumarate 400 MG TABLET PO (21:05)
[2023-06-09] MEDS: Docusate Sodium 100 MG CAPSULE PO (21:05)
[2023-06-09] MEDS: LORazepam 1 MG TABLET 2 MG PO (21:08)
[2023-06-09 21:31] VITALS: BP 151/87; PULSE 102; RESP 19; TEMP 36.7; O2SAT 95
[2023-06-10 06:34] VITALS: BP 149/85; PULSE 89; RESP 17; TEMP 36.8; O2SAT 98
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
--- NOTE | 2023-06-10 08:03 | MHC.CARE ---
ADAIR spoke with Coty at [facility], per Coty the [facility] Statistics Teacher declined pt for admission. RAD to f/u with with ADAIR Resource Economist for next steps
--- NOTE | 2023-06-10 08:11 | PC.NURSE ---
pt ambulating out to nurses station, sts i wanna go home . this rn expressed this to care team, care team sts the will follow up with pt this am. pt ambulating back to room, refusing to take morning meds at this time.
[2023-06-10 13:55] LABS: Appearance Urine Clear; Color Urine Dark Yellow; Glucose Urine UA Negative (Negative); Leukocyte Esterase Urine Negative (Negative); Nitrite Urine Negative (Negative); PH 6.5 (5.0-9.0); Specific Gravity - Urine >= 1.030 (1.005-1.025); Urine Blood Negative (Negative); Urine Ketones Trace mg/dL (Negative); Urine Protein Trace mg/dL (Neg-Trace)
[2023-06-10 13:58] LABS: Bacteria Urine None Seen (None Seen); Hyaline Casts Urine 0-2 /LPF (0-2); RBC Urine 0-2 /HPF (0-2); UACC Culture Trigger YES
--- NOTE | 2023-06-10 14:21 | PC.NURSE ---
pt has been up bathroom and nurses station multiple times throughtout shift, steady gait. pt expresses wishes to go to main ed, sts i just want to be left alone. pt educated about more secluded nature of pod and why staying would be beneficial for that. pt asked if he would like staff from nursing home to visit. pt initially resistant to this idea, but motivated to eventually ask to have staff visit. nursing home program supervisor joshua contacted and he sts staff on second shift will come to visit. pt back to bed at this time, pt continues to express suicidal ideation, at one point hitting self in head with brace on. redirected verbally to stop, pt complying. care team aware of pt presentation today, had visitation from qa intern.
--- NOTE | 2023-06-10 15:44 | MHC.CARE ---
Pt has a new prescriber. Prescriber is Mayela Naylor.? She can be reached via the [facility] [phone].
--- NOTE | 2023-06-10 17:18 | PC.NURSE ---
pt up at nurses station approx 1630, asking to go to main ed, sts im going to break stuff . pt attempting to shake nursing station glass, ambulating to pod doors and banging head against it. this rn and security aattempting to verbally deescalate pt, pt responding poorly, becoming agitated with security staff. more security staff responding d/t pt posturing towards security. pt requiring significant verbal deescalation from care team rajan, this rn and security in [place]. pt eventually apologetic, accepting of ice cream in lieu of being unable to go out to main ed at this time. pt sitting in [facility] area watching television, pt asking for consistent staffing tonight.
--- NOTE | 2023-06-10 18:06 | MHC.CARE ---
CARE Team received a call from Gricel Duncan from [facility]. Gricel stated that from the meeting that was had today, [facility] was surprised that [facility] wasn't [facility]OC . Juliet will send some of their people from the [facility] to come and see the pt to see if he can come back to the [facility]. Mayela Winn is the med provider and Gricel stated that she would inform Mayela that the pt was started on Adderall. Gricel stated that [facility] is trying to get the pt into [facility] and [facility]. Mayela Winn can be reached at [phone].
[2023-06-10 20:24] VITALS: BP 134/70; PULSE 101; RESP 19; TEMP 36.4; O2SAT 97
--- NOTE | 2023-06-10 20:38 | PC.NURSE ---
Assumed care of pt. Pt with sitter 1:1 for safety, no acute distress at this time.
[2023-06-10] MEDS: QUEtiapine Fumarate 400 MG TABLET PO (21:36)
[2023-06-10] MEDS: chlorproMAZINE HCl 25 MG TABLET PO (21:36)
[2023-06-10] MEDS: Divalproex Sodium ER 500 MG TAB.ER.24H 2000 MG PO (21:36)
[2023-06-10] MEDS: Docusate Sodium 100 MG CAPSULE PO (21:36)
[2023-06-10 22:47] VITALS: BP 120/89; PULSE 134; RESP 22; O2SAT 96
[2023-06-10] MEDS: OLANZapine 10 MG TABLET 20 MG PO (22:48)
--- NOTE | 2023-06-11 01:05 | PC.NURSE ---
At approximately 2245, this RN was notified by the sitter that the pat was becoming agitated. Pt found standing on room, refusing to discuss concerns. Pt was verbally deescalated by this RN and the 1:1 sitter, and offered PO medication to help calm him. Medication was ordered and given. pt now stating medication had good effect. no further concerns at this time.
--- NOTE | 2023-06-11 03:44 | PC.NURSE ---
pt sleeping, easily rousable, no acute medical or behavioral concerns at this time, 1:1 sitter remains at bedside for safety. WCTM
--- NOTE | 2023-06-11 07:54 | PC.NURSE ---
assumed care of this pt at 0700. pt sleeping at the time of assuming care. 1:1 staff at bedside.
[2023-06-11] MEDS: Docusate Sodium 100 MG CAPSULE PO ×2 (08:38→21:30)
[2023-06-11] MEDS: Dextroamphetamine/Amphetamine XR 10 MG CAP.ER.24H PO (08:38)
[2023-06-11] MEDS: guanFACINE HCl ER 2 MG TAB.ER.24H 4 MG PO (08:38)
[2023-06-11] MEDS: QUEtiapine Fumarate 400 MG TABLET PO ×2 (08:38→21:30)
[2023-06-11] MEDS: Propranolol HCL LA 80 MG CAP.SA.24H 160 MG PO (08:38)
[2023-06-11] MEDS: chlorproMAZINE HCl 25 MG TABLET PO ×3 (08:38→21:30)
--- NOTE | 2023-06-11 13:45 | PC.NURSE ---
pt grabbed the pen from 1:1 staff's table and refused to give it back. he eventually released the pen to another staff member. he was taken for a walk around the ER then returned to his room. pt in room at this time, 1:1 staff at bedside.
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
--- NOTE | 2023-06-11 17:35 | PC.NURSE ---
pt compliant with taking med. med given as ordered. 1:1 staff remains at bedside, no complaints.
[2023-06-11] MEDS: Divalproex Sodium ER 500 MG TAB.ER.24H 2000 MG PO (21:29)
[2023-06-11 21:53] VITALS: BP 135/89; PULSE 105; RESP 22; TEMP 36.6; O2SAT 96
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
--- NOTE | 2023-06-11 22:06 | MHC.EDTECH ---
Patient was feeling angry and agitated. I walked with patient around the ED. He requested ice cream on his second round. Patient is in his room eating ice cream and pizza. Patient requested to have the tech Teresa sit with him for the rest of the shift. Teresa is in the room with patient. BABS.
[2023-06-11] MEDS: Melatonin 3 MG TABLET PO (23:20)
[2023-06-11] MEDS: Acetaminophen 325 MG TABLET 650 MG PO (23:20)
--- NOTE | 2023-06-11 23:30 | PC.NURSE ---
late entry- pt requested tylenol for headache and melatonin to help with sleep. pt took medication well with apple. juice. pt calm and cooperative at this time. 1:[address] lights dimmed. bedside monitor and computer monitor off so pt able to get sleep
--- NOTE | 2023-06-12 06:06 | PC.NURSE ---
pt sleeping positioned on L side. 1:[address] lights dimmed
[2023-06-12 06:33] VITALS: RESP 18
--- NOTE | 2023-06-12 08:43 | PC.NURSE ---
Pt asleep, pt observer at bedside
[2023-06-12 10:00] VITALS: RESP 18
--- NOTE | 2023-06-12 10:00 | PC.NURSE ---
aox4. calm, sleeping. 1:1 at bedside. 18 respirations even rate. no distress. ate breakfast earlier today.
[2023-06-12 11:33] VITALS: RESP 18
--- NOTE | 2023-06-12 11:34 | PC.NURSE ---
continues to breathe regularly/evenly. calm. sleeping. encouraging to take pills/do vitals- pt not participating in this part of care. no agitation.
--- NOTE | 2023-06-12 13:49 | PC.NURSE ---
pt sleeping comfortably. rr 18. no distress. normal skin pallor. safe. 1:1 sitter at pt's bedside. no agitation
[2023-06-12 13:50] VITALS: RESP 18
--- NOTE | 2023-06-12 14:00 | PC.NURSE ---
pt found plastic on tray from kitchen- de-escalated by viscose cellar charge hand without intervention of secuirty with emotional reassurance and verbal redirection. pt allowed take vs. md ordering ativan.
[2023-06-12] MEDS: LORazepam 1 MG TABLET 2 MG PO (14:18)
[2023-06-12] MEDS: Propranolol HCL LA 80 MG CAP.SA.24H 160 MG PO (14:18)
[2023-06-12] MEDS: guanFACINE HCl ER 2 MG TAB.ER.24H 4 MG PO (14:18)
[2023-06-12] MEDS: chlorproMAZINE HCl 25 MG TABLET PO ×2 (14:19→19:33)
[2023-06-12] MEDS: Dextroamphetamine/Amphetamine XR 10 MG CAP.ER.24H PO (14:19)
[2023-06-12] MEDS: Sennosides 8.6 MG TABLET PO (14:19)
[2023-06-12] MEDS: Docusate Sodium 100 MG CAPSULE PO ×2 (14:32→19:33)
[2023-06-12] MEDS: QUEtiapine Fumarate 400 MG TABLET PO ×2 (14:32→19:34)
--- NOTE | 2023-06-12 14:38 | PC.NURSE ---
pt took meds calmly with juice. vss. no distress noted. talking well. regular breathing. 1:1 bedside
[2023-06-12 15:51] VITALS: RESP 16
--- NOTE | 2023-06-12 15:51 | PC.NURSE ---
remains calm. cooperative. ate food. 1:1 at bedside.
[2023-06-12 19:30] VITALS: BP 120/68; PULSE 68; RESP 18; TEMP 36.6; O2SAT 98
--- NOTE | 2023-06-12 19:30 | PC.NURSE ---
aox4. calm, coop asked for night meds. VSS. 1:1 at side. eating ice cream
[2023-06-12] MEDS: Divalproex Sodium ER 500 MG TAB.ER.24H 2000 MG PO (19:33)
--- NOTE | 2023-06-12 19:40 | PC.NURSE ---
pt talking, alert/orientedx4. denies pain.
--- NOTE | 2023-06-12 23:02 | MHC.EDTECH ---
Assumed care of pt as electronics warfare technician at 2300 No distress at this time will Continue to monitor at this time.
[2023-06-13] VITALS (12 sets, daily range): BP systolic 145–148; BP diastolic 87; PULSE 74–90; RESP 16–20; TEMP 36.6; O2SAT 95–97
--- NOTE | 2023-06-13 00:13 | MHC.CARE ---
CARE Team received a call from Tk the training program manager looking for an update on the pt at 00:15 at night. Tk stated that he was to busy to come see the pt today but that he will come to see the pt in the morning around 8-9am.
--- NOTE | 2023-06-13 00:24 | PC.NURSE ---
aviation safety inspector at bedside. calm/resting comfortably. cont to monitor.
[2023-06-13] MEDS: Melatonin 3 MG TABLET PO (03:18)
--- NOTE | 2023-06-13 06:41 | PC.NURSE ---
uneventful night. calm/cooperative, provided ice cream. patient safety sitter at bedside.
[2023-06-13] MEDS: Propranolol HCL LA 80 MG CAP.SA.24H 160 MG PO (07:57)
[2023-06-13] MEDS: guanFACINE HCl ER 2 MG TAB.ER.24H 4 MG PO (07:58)
[2023-06-13] MEDS: Sennosides 8.6 MG TABLET PO (07:58)
[2023-06-13] MEDS: Dextroamphetamine/Amphetamine XR 10 MG CAP.ER.24H PO (07:59)
[2023-06-13] MEDS: chlorproMAZINE HCl 25 MG TABLET PO ×3 (07:59→21:23)
[2023-06-13] MEDS: Docusate Sodium 100 MG CAPSULE PO ×2 (07:59→21:23)
[2023-06-13] MEDS: QUEtiapine Fumarate 400 MG TABLET PO ×2 (11:15→21:23)
--- NOTE | 2023-06-13 14:33 | PC.NURSE ---
Pt currently resting, sitter at bedside.
--- NOTE | 2023-06-13 15:57 | MHC.CARE ---
0930- CARE Team meets with pt, who is just waking up. He reports that he does not want to return to the detention. CARE team offered to allowed pt more rest and to return later. Pt has been advocating throughout the past several days to discharge back to the detention. 1000- CARE Team speaks with Tk, pt's group insurance specialist, who reports that he came to visit pt this morning at 0800 and pt reported that he is not ready to discharge to the detention and needs to remain in the hospital. Tk agrees to send additional staffing out later today to continue to work with pt. Tk reports that pt has not been see by his outpatient therapist since Feb 25. 1117- Rohit, pt's clinical appeals specialist arrives to meet with pt, who is asleep and declines to meet. Rohit and t/w discuss pt's current case, as he has been declined from [facility], has stabilized back to baseline (which is discussed and agreed upon). Rohit and t/w discuss the elements of pt's presentation that are behavioral, manipulative. Rohit returns later in the afternoon to speak with pt, who reports to Rohit that he is not ready to return to the detention and if he did return, he would not be safe. 1199- CARE Team speaks with Gricel Duncan from [facility] regarding current work toward d/c, asking for [facility] to provide additional support to the detention so that they are able to safely care for pt in the community. 1245- CARE Team speaks with pt's mother Shireen/guardian regarding pt's plan and progress. Mother is agreement with plan to work toward discharge. CARE Team meets with pt again at approx 1530. He reports he is not ready to return to his detention. CARE Team explains that he has made contrary statements to his team today, so there will be another opportunity tomorrow to discuss discharge plan. Pt is also told he will be in the ED BH pod for the remainder of the ED stay, at which he escalates. CARE Team discourages staff from reinforcing pt being in the ED through minimizing expectations and reinforcing inappropriate/aggressive behaviors through providing treats. Pt has a highly structured behavior plan at his detention, and being in the ED may provide relief from this. Plan for tomorrow is a psych consult and further coordination with pt's team.
[2023-06-13] MEDS: diphenhydrAMINE HCL 50 MG/ML VIAL IM (16:00)
[2023-06-13] MEDS: OLANZapine 10 MG VIAL IM ×2 (16:00→23:09)
[2023-06-13] MEDS: LORazepam 2 MG/ML VIAL IM ×2 (16:00→23:08)
[2023-06-13] MEDS: LORazepam 1 MG TABLET PO (17:08)
[2023-06-13] MEDS: Divalproex Sodium ER 500 MG TAB.ER.24H 2000 MG PO (21:23)
--- NOTE | 2023-06-13 21:41 | PC.NURSE ---
Pt ambulated to the bathroom. Pt is very somnolent, slightly wobbly on his feet and falling asleep. Pt is now sitting in the common space watching TV.
--- NOTE | 2023-06-13 22:44 | ECG_ITS ---
Test Reason : MED CLEARANCE Blood Pressure : / mmHG Vent. Rate : 090 BPM Atrial Rate : 090 BPM P-R Int : 152 ms QRS Dur : 084 ms QT Int : 352 ms P-R-T Axes : 045 016 022 degrees QTc Int : 430 ms Normal sinus rhythm Normal ECG When compared with ECG of 02-JUN-2023 13:27, No significant change was found Referred By: Lottie Vega Electronically Signed By:Zaki Graham
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
[2023-06-14] VITALS (8 sets, daily range): BP systolic 107–126; BP diastolic 45–77; PULSE 70–97; RESP 15–18; TEMP 36.2–37.2; O2SAT 95–97
--- NOTE | 2023-06-14 00:42 | PC.NURSE ---
Pt asleep at this time.
--- NOTE | 2023-06-14 07:13 | PC.NURSE ---
patient appears to remain asleep at present respirations are even and unlabored patient appears in no distress
[2023-06-14] MEDS: guanFACINE HCl ER 2 MG TAB.ER.24H 4 MG PO (11:01)
[2023-06-14] MEDS: Propranolol HCL LA 80 MG CAP.SA.24H 160 MG PO (11:01)
[2023-06-14] MEDS: QUEtiapine Fumarate 400 MG TABLET PO ×2 (11:02→19:35)
[2023-06-14] MEDS: Dextroamphetamine/Amphetamine XR 10 MG CAP.ER.24H PO (11:02)
[2023-06-14] MEDS: Docusate Sodium 100 MG CAPSULE PO ×2 (11:02→19:35)
[2023-06-14] MEDS: chlorproMAZINE HCl 25 MG TABLET PO ×2 (11:03→19:35)
[2023-06-14] MEDS: Sennosides 8.6 MG TABLET PO (11:03)
--- NOTE | 2023-06-14 15:02 | HO.PSYCHPN ---
Subjective Subjective Date of Service: 06/14/23 Reason For Visit: Crisis Interim History: Pt seen with MARCELO Kiera. Pt reports feeling safe and ready to return back to . He did have an episode of agitation last night banging doors and asking to be moved to main ED. Pt did allowed EKG and after agree to take PRN medication for agitation. Pt did not assault any staff nor cause any property damage as he has in the past when very agitated. Pt has been taking medications as prescribed. medical and labs discussed with RN from [facility] at his [facility]. Review of Systems Review of Systems CONSTITUTIONAL: Denies weight loss, fever and chills. HEENT: Denies changes in vision and hearing. RESPIRATORY: Denies SOB and cough. CV: Denies palpitations no CP. GI: Denies abdominal pain, nausea, vomiting and diarrhea. : Denies dysuria and urinary frequency. MSK: Denies myalgia and joint pain. SKIN: Denies rash and pruritus. NEUROLOGICAL: Denies headache and syncope. PSYCHIATRIC: See HPI All other ROS are negative unless in HPI Mental Status Exam Mental Status Exam Narrative: Appearance: lying in bed; sleepy but arousable; bare chest, shorts; NAD Behavior: cooperative Speech:clear, some slight delayed in response, spontaneous Psychomotor: no agitation or retardation noted TP: goal oriented; concrete; TC:denies SI or HI SI: none HI: none Mood: better Affect: intense-eye contact at times, mildly irritable VH/AH: denies Delusions: none Insight/judgment: fair x 2. Memory/cog: alert, oriented x 3. Diagnostics Vital Signs (24Hr): Vital Signs - 24 hr 06/13/23 16:00 06/13/23 16:15 06/13/23 16:30 Temperature Pulse Rate Respiratory Rate 18 18 18 Blood Pressure Pulse Oximetry Oxygen Delivery Method Room Air Room Air 06/13/23 16:45 06/13/23 17:00 06/13/23 19:09 Temperature 97.9 F Pulse Rate 90 Respiratory Rate 18 18 16 Blood Pressure 148/87 H Pulse Oximetry 95 Oxygen Delivery Method Room Air Room Air Room Air 06/13/23 23:08 06/13/23 23:23 06/13/23 23:38 Temperature Pulse Rate Respiratory Rate 18 16 16 Blood Pressure Pulse Oximetry Oxygen Delivery Method 06/13/23 23:53 06/14/23 00:08 Temperature Pulse Rate Respiratory Rate 16 16 Blood Pressure Pulse Oximetry Oxygen Delivery Method BMI result Body Mass Index 33.2 Labs 06/09/23 18:18 06/09/23 18:18 Imaging Radiology Impressions: ITS Impressions Hand/Wrist X-Ray 06/03/23 10:40 IMPRESSION: No acute bony pathology left hand and wrist. Medications Medications Current Medications Amphetamine/Dextroamphetamine (Dextroamphetamine/Amphetamine Xr 10 Mg Cap.Er.24h) 10 mg PO DAILY [facility] Last Admin: 06/14/23 11:02 Dose: 10 mg Calcium Carbonate (Calcium Carbonate 750 Mg Tab.Chew) 1,500 mg PO QID PRN PRN Reason: dyspesia Last Admin: 06/09/23 13:51 Dose: 1,500 mg Chlorpromazine HCl (Chlorpromazine Hcl 25 Mg Tablet) 25 mg PO TID [facility] Last Admin: 06/14/23 11:03 Dose: 25 mg Divalproex Sodium (Divalproex Sodium Er 500 Mg Tab.Er.24h) 2,000 mg PO BEDTIME [facility] Last Admin: 06/13/23 21:23 Dose: 2,000 mg Docusate Sodium (Docusate Sodium 100 Mg Capsule) 100 mg PO BID [facility] Last Admin: 06/14/23 11:02 Dose: 100 mg Guanfacine HCl (Guanfacine Hcl Er 2 Mg Tab.Er.24h) 4 mg PO DAILY [facility] Last Admin: 06/14/23 11:01 Dose: 4 mg Melatonin (Melatonin 3 Mg Tablet) 3 mg PO BEDTIME PRN PRN Reason: Insomnia Last Admin: 06/13/23 03:18 Dose: 3 mg Propranolol HCl (Propranolol Hcl La 80 Mg Cap.Sa.24h) 160 mg PO DAILY [facility]; Protocol Last Admin: 06/14/23 11:01 Dose: 160 mg Quetiapine Fumarate (Quetiapine Fumarate 400 Mg Tablet) 400 mg PO BID [facility] Last Admin: 06/14/23 11:02 Dose: 400 mg Senna (Sennosides 8.6 Mg Tablet) 8.6 mg PO DAILY [facility] Last Admin: 06/14/23 11:03 Dose: 8.6 mg Allergies Allergies Allergy/AdvReac Type Severity Reaction Status Date / Time methylphenidate Allergy Unknown UNKNOWN Verified 11/17/22 11:31 [From RITALIN] shrimp [SHRIMP] Allergy Unknown HIVES Verified 11/17/22 11:31 haloperidol [From Haldol] Allergy Involuntary Verified 11/17/22 11:31 Spasms Assessment & Plan Assessment & Plan (1) Mood disorder: Status: Inactive Code(s): F39 - Unspecified mood [affective] disorder (2) Intermittent explosive disorder in adult: Status: Acute Code(s): F63.81 - Intermittent explosive disorder (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 Casillas is a 22 year-old male with intellectual disability, XXYY syndrome, explosive behaviors, brought to [facility] due to increase agitation and reports of depression and suicidal ideation. Per mother, pt appears more depressed than usual and states that she worries about his safety. Pt continues to endorse SI, asking for [facility] admission but declines medication changes. Additional labs ordered today- LFT improved. Ammonia 47. A1C 5%, TSH 1.7. follow up consult for pt seen on 06/02/23 met w/ pt; discussed with team; reviewed chart 06/14- pt to be discharged back to after meeting with staff at and MARCELO Qureshi. continue current medications. Reason for continued inpatient stay Substantial Risk for: stable for discharge Time Spent With Patient Time: Total time managing care of this patient today ____ minutes.
[2023-06-14] MEDS: LORazepam 2 MG/ML VIAL IM ×2 (15:30→19:04)
[2023-06-14] MEDS: diphenhydrAMINE HCL 50 MG/ML VIAL 25 MG IM (15:30)
[2023-06-14] MEDS: OLANZapine 10 MG VIAL IM ×2 (15:30→19:05)
--- NOTE | 2023-06-14 15:30 | PC.NURSE ---
Patient had requested to speak with care team regarding the plan and when he would be going home. Kiera and the usp director came and spoke with the patient and attempted to explain what would be happening next, patient became agitated and stated that he did want Kiera working on his case anymore and that I don't need your help. Security was called at this time. While Kiera and director were exiting the pod patient started to follow them out the door and security brought him back into the pod. Alarm was pressed at this time and other staff including provider came in and provider ordered IM medications that he received per JAN.
--- NOTE | 2023-06-14 16:15 | MHC.CARE ---
CARE Team meets with pt at his request. He is sleepy, but reports he wants to return to his skilled nursing, stating he can be safe. Pt reports he will not harm self or others in the skilled nursing. Pt is informed that his clinician, Rohit, will be coming to visit soon, and that he and Rohit need to discuss a safety/transition plan back to the program. Pt asks t/w to be present. When Rohit arrives, pt is under the assumption he is leaving immediately, asks for his clothing, and becomes agitated when told we would first need to make a plan. Pt and Rohit speak briefly. Rohit find pt to be irritable, but he is reporting he will be safe in the skilled nursing. CARE Team plans at this time to call Tk, group contract analyst and coordinate a discharge home. When t/w and Rohti go to exit the pod, pt states so I am not leaving now? CARE Team explains that this is a process and the next step is for t/w to speak with Tk. Pt escalates, swearing and yelling at t/w. CARE Team walks Rohit out of the pod and pt follows, not responding to staff redirection. Security responds to the pod. Pt attempts to get out of the pod when door is open to let Rohit out. T/w gets between pod door and pt to close the door. Pt had the opportunity to push past t/w or aggress, but did not and allowed the door to be closed. Security took over working with pt att. Given the above information, CARE Team does not recommend d/c today. Plan is for hospital staff and pt's team to meet tomorrow regarding safe discharge planning.
--- NOTE | 2023-06-14 16:39 | MHC.EDTECH ---
Patient refused vitals. Nurse attempted for the second time but refused once again. only able to take his O2 95 and HR 97.
[2023-06-14] MEDS: diphenhydrAMINE HCL 50 MG/ML VIAL IM (19:05)
--- NOTE | 2023-06-14 19:15 | PC.NURSE ---
German approached the nurses station and reported he was feeling agitated and requested medication. When offered PO medication German responded with yelling demanding All the shots . Education attempted but German reported he only wanted the shots . Doctor approached and IM medication ordered.
[2023-06-14] MEDS: Divalproex Sodium ER 500 MG TAB.ER.24H 2000 MG PO (19:35)
[2023-06-14] MEDS: Ziprasidone Mesylate 20 MG VIAL IM (20:50)
--- NOTE | 2023-06-14 20:55 | PC.NURSE ---
German began to escalate and was observed pacing on the unit and verbalizing that he was going to tear shit up . German began to pull at the metal and glass on the window surrounding the nursing station. He was able to be redirected but continued making threats toward staff stating he would beat your fucking ass and making gestures that he was going to lunge. German requested more medication and reported he was feeling like he was not in control. German reports he does not want to take a PO medication and requested an IM to help him calm down and let him rest. German was given 20mg Geodon IM to his R deltoid. Requested addie fiona and cranberry juice afterwards. Nursing encouraging German to try and lay down.
[2023-06-15] MEDS: Acetaminophen 325 MG TABLET 975 MG PO (04:48)
--- NOTE | 2023-06-15 06:37 | PC.NURSE ---
Patient is in bed appears sleeping, behavior volatile and unpredictable requiring multiple interventions, patient was administered IM medication as ordered and per patient's request, compliant with HS medication, patient is going through hard grieving process from sad demise of his uncle recently, disposition per care team is possible discharge back to [facility] but unlikely due to patient's behavioral unpredictability, spoke briefly with anesthesiology technologist, medication compliant, Tylenol administered for face pain, VSS, will continue to monitor.
--- NOTE | 2023-06-15 09:29 | PC.NURSE ---
pt appears to be sleeping in room at this time, respirations even and unlabored.
--- NOTE | 2023-06-15 12:58 | PC.NURSE ---
assumed care at 11:20. pt sleeping, per previous nurse has been sleeping all morning and she did not give AM meds. will cont to rukhsana
[2023-06-15] MEDS: guanFACINE HCl ER 2 MG TAB.ER.24H 4 MG PO (14:36)
[2023-06-15] MEDS: Propranolol HCL LA 80 MG CAP.SA.24H 160 MG PO (14:36)
[2023-06-15] MEDS: QUEtiapine Fumarate 400 MG TABLET PO ×2 (14:37→21:54)
[2023-06-15] MEDS: Docusate Sodium 100 MG CAPSULE PO ×2 (14:37→21:54)
[2023-06-15] MEDS: chlorproMAZINE HCl 25 MG TABLET PO ×2 (14:37→21:53)
[2023-06-15 14:38] VITALS: BP 116/79; PULSE 87; RESP 17; TEMP 36.5; O2SAT 95
--- NOTE | 2023-06-15 15:25 | P.CNPS_ITS ---
History of Present Illness Date of Service: 06/15/2023 Chief Complaint: Crisis Discussed with referring provider: Yes Sources of Information: patient interviewed, chart reviewed and crisis/core team assessment reviewed HPI Narrative: Interim Hx: pt asleep. Pt was supposed to discharge yesterday back to , but became significantly agitated and combative requiring presence of security and IM medication. Meeting about care held today with MARCELO Qureshi, director and ED Director, Dr. Florez. Pt has been here in ED for about 4 weeks, increase aggression in last week and this week. Past Psychiatric History: -Pt has OP psychiatrist, Dr. Jen Purvis at [facility]. Has [facility] services. Resides in [facility]. -Hx of I[facility]OC at [facility] due to aggression, agitation, behavioral disturbance in [facility] setting. Review of Systems Review of Systems CONSTITUTIONAL: Denies weight loss, fever and chills. HEENT: Denies changes in vision and hearing. RESPIRATORY: Denies SOB and cough. CV: Denies palpitations no CP. GI: Denies abdominal pain, nausea, vomiting and diarrhea. : Denies dysuria and urinary frequency. MSK: Denies myalgia and joint pain. SKIN: Denies rash and pruritus. NEUROLOGICAL: Denies headache and syncope. PSYCHIATRIC: See HPI All other ROS are negative unless in HPI [facility] Medical History Adjustment disorder Chronic abdominal pain Developmental disability Dyspnea Intellectual developmental disorder, severe Seborrheic dermatitis Seizures XXYY syndrome Surgical History History of testicular surgery Social History: -Pt resides in [facility] residential through [facility]. Pt has 2 younger siblings, parents, and sees his family often. Prev resided at a [facility] residential [facility] [phone].?' Diagnostics Vital Signs (24Hr): Vital Signs - 24 hr 06/14/23 15:52 06/14/23 16:18 06/14/23 16:00 Temperature 98.9 F 98.6 F Pulse Rate 70 95 95 Respiratory Rate 18 15 15 Blood Pressure 120/60 107/45 L 107/45 L Pulse Oximetry 97 95 95 Oxygen Delivery Method Room Air Room Air Room Air 06/14/23 16:15 06/14/23 15:45 06/14/23 20:38 Temperature 97.2 F Pulse Rate 97 70 95 Respiratory Rate 18 18 Blood Pressure 120/60 126/77 Pulse Oximetry 95 97 96 Oxygen Delivery Method Room Air Room Air Room Air 06/15/23 14:38 Temperature 97.7 F Pulse Rate 87 Respiratory Rate 17 Blood Pressure 116/79 Pulse Oximetry 95 Oxygen Delivery Method Room Air BMI result Body Mass Index 33.2 Labs 06/09/23 18:18 06/09/23 18:18 Imaging Radiology Impressions: ITS Impressions Hand/Wrist X-Ray 06/03/23 10:40 IMPRESSION: No acute bony pathology left hand and wrist. Mental Status Exam Mental Status Exam Narrative: Appearance: lying in bed; sleepy but arousable; bare chest, shorts; NAD Behavior: cooperative Speech:clear, some slight delayed in response, spontaneous Psychomotor: no agitation or retardation noted TP: goal oriented; concrete; TC:denies SI or HI SI: none HI: none Mood: better Affect: intense-eye contact at times, mildly irritable VH/AH: denies Delusions: none Insight/judgment: fair x 2. Memory/cog: alert, oriented x 3. Medications Medications Current Medications Calcium Carbonate (Calcium Carbonate 750 Mg Tab.Chew) 1,500 mg PO QID PRN PRN Reason: dyspesia Last Admin: 06/09/23 13:51 Dose: 1,500 mg Chlorpromazine HCl (Chlorpromazine Hcl 25 Mg Tablet) 25 mg PO TID [facility] Last Admin: 06/15/23 14:37 Dose: 25 mg Divalproex Sodium (Divalproex Sodium Er 500 Mg Tab.Er.24h) 2,000 mg PO BEDTIME [facility] Last Admin: 06/14/23 19:35 Dose: 2,000 mg Docusate Sodium (Docusate Sodium 100 Mg Capsule) 100 mg PO BID [facility] Last Admin: 06/15/23 14:37 Dose: 100 mg Guanfacine HCl (Guanfacine Hcl Er 2 Mg Tab.Er.24h) 4 mg PO DAILY [facility] Last Admin: 06/15/23 14:36 Dose: 4 mg Melatonin (Melatonin 3 Mg Tablet) 3 mg PO BEDTIME PRN PRN Reason: Insomnia Last Admin: 06/13/23 03:18 Dose: 3 mg Propranolol HCl (Propranolol Hcl La 80 Mg Cap.Sa.24h) 160 mg PO DAILY [facility]; Protocol Last Admin: 06/15/23 14:36 Dose: 160 mg Quetiapine Fumarate (Quetiapine Fumarate 400 Mg Tablet) 400 mg PO BID [facility] Last Admin: 06/15/23 14:37 Dose: 400 mg Senna (Sennosides 8.6 Mg Tablet) 8.6 mg PO DAILY [facility] Last Admin: 06/15/23 14:43 Dose: Not Given Allergies Allergies Allergy/AdvReac Type Severity Reaction Status Date / Time methylphenidate Allergy Unknown UNKNOWN Verified 11/17/22 11:31 [From RITALIN] shrimp [SHRIMP] Allergy Unknown HIVES Verified 11/17/22 11:31 haloperidol [From Haldol] Allergy Involuntary Verified 11/17/22 11:31 Spasms Assessment & Plan Assessment & Plan (1) Mood disorder: Status: Inactive Code(s): F39 - Unspecified mood [affective] disorder (2) Intermittent explosive disorder in adult: Status: Acute Code(s): F63.81 - Intermittent explosive disorder (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 Casillas is a 22 year-old male with intellectual disability, XXYY syndrome, explosive behaviors, brought to [facility] ED due to increase agitation and reports of depression and suicidal ideation. Per mother, pt appears more depressed than usual and states that she worries about his safety. Pt continues to endorse SI, asking for [facility] admission but declines medication changes. Additional labs ordered today- LFT improved. Ammonia 47. A1C 5%, TSH 1.7. follow up consult for pt seen on 06/02/23 met w/ pt; discussed with team; reviewed chart 06/14- pt to be discharged back to after meeting with staff at and MARCELO Qureshi . continue current medications. 06/15- d/c adderall mostly as unclear if more outbusts in past week related to this medication, although pt at baseline has aggressive tendencies not fully eliminated by psychotropic medications. May consider second mood stabilizer. Total time managing care of this patient today ____ minutes.
[2023-06-15] MEDS: OLANZapine 10 MG VIAL IM (17:41)
[2023-06-15] MEDS: LORazepam 2 MG/ML VIAL IM (17:42)
[2023-06-15] MEDS: diphenhydrAMINE HCL 50 MG/ML VIAL IM (17:42)
--- NOTE | 2023-06-15 18:12 | PC.NURSE ---
German approached the nurses station and requested IM medication at noon. German was encouraged to take his AM medication and eat lunch and see how he was feeling after that. German was able to spend time in his room after this and did verbalize feeling increasing agitation but was able to control his behavior and rest in his room. at 1700 German again approached the nurses station and requested the shots MD consulted and Zyprexa 10mg, Lorazepam 2mg and Benadryl 50mg given IM to R and L deltoid. German was again educated on the efficacy of PO medication and encouraged to try to take PRN's that way. He verbalized understanding but declined interest in taking PRN's this way.
[2023-06-15] MEDS: Divalproex Sodium ER 500 MG TAB.ER.24H 2000 MG PO (21:54)
[2023-06-15 22:01] VITALS: BP 130/85; PULSE 84; RESP 20; TEMP 36.2; O2SAT 95
[2023-06-15] MEDS: Ziprasidone Mesylate 20 MG VIAL IM (22:32)
--- NOTE | 2023-06-16 00:13 | PC.NURSE ---
German approached the nurses station and requested the shot I got before bed last night . Germna was given his HS medications and a snack and was encouraged to watch TV and see how he felt after allowing the medications to begin working. German was in agreement with this. 30 minutes after taking his HS medications German again approached the nurses station and requested again to be given that shot I got last night . PO medication was offered which German declined. notified and IM injection ordered. Geodon 20mg IM given to L deltoid. PT resting comfortably currently.
--- NOTE | 2023-06-16 05:43 | PC.NURSE ---
Patient slept through the night, no distress observed/reported, behavior in good control, medication compliant, disposition per care team is discharge back to prison pending prison management decision, VSS, will continue to monitor,
[2023-06-16 06:00] VITALS: RESP 16
[2023-06-16] MEDS: guanFACINE HCl ER 2 MG TAB.ER.24H 4 MG PO (13:51)
[2023-06-16] MEDS: chlorproMAZINE HCl 25 MG TABLET PO ×2 (13:51→23:25)
[2023-06-16] MEDS: QUEtiapine Fumarate 400 MG TABLET PO ×2 (13:51→23:25)
[2023-06-16] MEDS: Propranolol HCL LA 80 MG CAP.SA.24H 160 MG PO (13:51)
--- NOTE | 2023-06-16 13:52 | PC.NURSE ---
patient agreeable at this time to take AM meds he did not want to take this morning. meds administered.
[2023-06-16] MEDS: Docusate Sodium 100 MG CAPSULE PO ×2 (18:13→23:26)
[2023-06-16] MEDS: Sennosides 8.6 MG TABLET PO (18:14)
[2023-06-16] MEDS: LORazepam 2 MG/ML VIAL IM (18:30)
[2023-06-16] MEDS: OLANZapine 10 MG VIAL IM (18:31)
[2023-06-16] MEDS: diphenhydrAMINE HCL 50 MG/ML VIAL IM (18:31)
--- NOTE | 2023-06-16 20:25 | PC.NURSE ---
German had a meeting with his half-way staff and was able to stay calm and engage in the meeting. After they left he requested a snack and sat out in the common area watching television. German reports he was feeling constipated and his ordered Senna and Docusate were given. German began to feel some increasing agitation related to increased stimulation in the POD and requested medication. This advertising copywriter attempted to offer PO medication but German requested shots and refused offered PO medicaitons. Education given but German refused PO medications again. MD alerted and IM medications were ordered. German was given these and continued to remain in the common area before laying down to rest. Staff will continue to monitor.
[2023-06-16] MEDS: Divalproex Sodium ER 500 MG TAB.ER.24H 2000 MG PO (23:25)
[2023-06-16] MEDS: Milk of Magnesia 30 ML ORAL.SUSP PO (23:25)
[2023-06-16] MEDS: Ziprasidone 20 MG CAPSULE PO (23:32)
--- NOTE | 2023-06-16 23:36 | PC.NURSE ---
German c/o constipation and blood when he is straining to go. No BM reported for a couple days but maybe yesterday . MOM ordered and given. Fluids encouraged. German requested an injection of Geodon IM due to agitation. Education given and German agreed to take the medication PO. 20mg Geodon PO given.
[2023-06-17 05:00] VITALS: RESP 16
--- NOTE | 2023-06-17 05:39 | PC.NURSE ---
Patient slept through the night, patient had constipation resolved after administration of Milk of magnesium and digitally removing bowel by the provider, medication compliant, disposition pending [facility] decision to accept him back, VSS, behavior non concerning but unpredictable, VSS, will continue to monitor.
[2023-06-17 11:57] VITALS: BP 134/71; PULSE 92; RESP 12; TEMP 36.7; O2SAT 94
--- NOTE | 2023-06-17 12:37 | PC.NURSE ---
Intermediate Staff called to report able to picker and packer Pt around 2 pm
[2023-06-17] MEDS: chlorproMAZINE HCl 25 MG TABLET PO (15:23)
[2023-06-17] MEDS: Milk of Magnesia 30 ML ORAL.SUSP PO (15:54)
== END 2023-06-17 16:39 | disposition home or self-care (01) ==
PROVIDERS: Physician Assistant; Social Worker; Emergency Provider Emergency Medicine Emergency Medical Services
DX: R45.851 Suicidal ideations (principal); F88 Other disorders of psychological development; F63.81 Intermittent explosive disorder; R45.1 Restlessness and agitation; F43.20 Adjustment disorder, unspecified; Q98 Other sex chromosome abnormalities, male phenotype, not elsewhere classified; F41.9 Anxiety disorder, unspecified; K56.41 Fecal impaction; K64.9 Unspecified hemorrhoids; F12.90 Cannabis use, unspecified, uncomplicated; Z79.899 Other long term (current) drug therapy
CPT/HCPCS: 36415; 73110; 73130; 80053; 80061; 80143; 80164; 80179; 80307; 81001; 82140; 83036; 83690; 84443; 85025; 85379; 87086; 93005; 96372; 99285; J1200; J2060; J3486; S9485

== ENCOUNTER → 2023-05-28 20:07 | Outpatient (BNV) | payer OTHER, SELFPAY | PROVIDERS: Emergency Provider Emergency Medicine Emergency Medical Services; Visit Provider Social Worker | DX: F39 Unspecified mood [affective] disorder (principal); F63.81 Intermittent explosive disorder; Q98 Other sex chromosome abnormalities, male phenotype, not elsewhere classified | CPT/HCPCS: 99232; 99285 ==

== ENCOUNTER → 2023-06-13 22:44 | Outpatient (BNV) | payer MEDICAID, SELFPAY | PROVIDERS: Emergency Provider Emergency Medicine Emergency Medical Services; Visit Provider Internal Medicine Cardiovascular Disease | DX: Z51.81 Encounter for therapeutic drug level monitoring (principal) | CPT/HCPCS: 93010 ==

== ENCOUNTER 2023-06-22 13:26 | Emergency (ER) | payer OTHER, MEDICAID, SELFPAY ==
[2023-06-22 13:31] VITALS: RESP 18; BMI 49.8
--- NOTE | 2023-06-22 13:45 | PC.NURSE ---
PT IS REFUSING TO TAKE HIS SANDALS EVEN WITH SECURITY ASKING MULTIPLE TIMES. PT HAS ALSO REFUSED VSS. RESP 18, EVEN AND ULABORED.
[2023-06-22 13:55] VITALS: BP 121/78; PULSE 90; RESP 18; TEMP 37.1; O2SAT 94
[2023-06-22 14:52] LABS: Appearance Urine Hazy; Color Urine Yellow; Glucose Urine UA Negative (Negative); Leukocyte Esterase Urine Negative (Negative); Nitrite Urine Negative (Negative); Specific Gravity - Urine >= 1.030 (1.005-1.025); Urine Blood Negative (Negative); Urine Ketones Negative (Negative); Urine Protein Negative (Neg-Trace)
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
[2023-06-22 15:02] LABS: Amphetamine Screen Urine Not Detected (Not Detect); Barbiturates, Urine Not Detected (Not Detect); Benzodiazepines Screen Urine Not Detected (Not Detect); Cannabinoid Screen Urine POSITIVE (Not Detect); Cocaine Screen Urine Not Detected (Not Detect); Fentanyl, urine Not Detected (Not Detect); Opiate Screen Urine Not Detected (Not Detect); Phencyclidine Screen Urine Not Detected (Not Detect)
[2023-06-22] MEDS: Nicotine Polacrilex 2 MG GUM 4 MG BUCCAL (16:35)
[2023-06-22 16:43] VITALS: BP 114/75; PULSE 83; RESP 16; TEMP 36.2; O2SAT 92
[2023-06-22 17:23] LABS: RBC Urine 0-2 /HPF (0-2); Squamous Epithelial Cell Urine 0-2 /HPF (0-2); WBC Clumps Urine None seen; WBC Urine 0-5 /HPF (0-5)
[2023-06-22 17:24] LABS: Bacteria Urine None Seen (None Seen); Hyaline Casts Urine 0-2 /LPF (0-2)
--- NOTE | 2023-06-22 18:45 | PC.NURSE ---
Pt is calm and cooperative. He did act out shaking the window. Was able to redirect.
[2023-06-22] MEDS: OLANZapine 10 MG VIAL IM (19:35)
[2023-06-22] MEDS: LORazepam 2 MG/ML VIAL IM (19:35)
[2023-06-22] MEDS: diphenhydrAMINE HCL 50 MG/ML VIAL IM (19:35)
[2023-06-22 20:07] LABS: Hematocrit 43.5 % (42.0-52.0); Hemoglobin 13.8 g/dl (14.0-18.0); Mean Corpuscular HGB Conc 31.7 g/dl (31.0-36.0); Mean Corpuscular Hemoglobin 28.5 pg (27.0-33.0); Mean Corpuscular Volume 89.9 fL (80.0-98.0); Mean Platelet Volume 9.9 fL (9.4-12.4); Platelet Count 232 X10*3/uL (160-400); Red Blood Count 4.84 X10*6/uL (4.60-5.80); Red Cell Distribution Width 14.6 % (11.0-16.0); White Blood Count 10.4 X10*3/uL (4.8-10.8)
[2023-06-22 20:30] LABS: Alanine Aminotransferase 83 U/L (0-40); Albumin Level 3.7 g/dL (3.5-5.0); Alkaline Phosphatase 106 U/L (39-117); Anion Gap 17 (12-20); Aspartate Amino Transferase 90 U/L (5-37); Bilirubin Total 0.3 mg/dL (0.0-1.0); Blood Urea Nitrogen 14 mg/dL (9-16); Calcium 9.2 mg/dL (8.4-10.2); Carbon Dioxide 20 mmol/L (22-29); Chloride 107 mmol/L (96-108); Creatinine Clr Calc Pharmacy 240.1; Estimated Glomerular Filt Rate > 60; Ethanol < 10 mg/dL; Glucose Random 147 mg/dL (60-115); Potassium 4.1 mmol/L (3.3-5.1); Sodium 140 mmol/L (135-145)
--- NOTE | 2023-06-22 20:59 | PC.NURSE ---
Patient requested IM medication for his racing thought, provider notified/ordered Ativan 2 mg IM, Benadryl 50 mg IM, and Olanzapine 10 mg IM administered as ordered with + effect, will continue to monitor
== END 2023-06-22 22:29 | disposition home or self-care (01) ==
PROVIDERS: Emergency Provider Emergency Medicine
DX: F43.24 Adjustment disorder with disturbance of conduct (principal); F63.81 Intermittent explosive disorder; F89 Unspecified disorder of psychological development; R45.851 Suicidal ideations; F12.90 Cannabis use, unspecified, uncomplicated; Z79.899 Other long term (current) drug therapy
CPT/HCPCS: 36415; 80053; 80307; 81001; 85027; 96372; 99284; 99285; J1200; J2060; S9485

== ENCOUNTER 2023-06-26 17:16 | Emergency (ER) | payer OTHER, SELFPAY ==
--- NOTE | ~2023-06-26 | XR_ITS ---
EXAMINATION: XR WRIST, LEFT XR HAND, LEFT CLINICAL INFORMATION: Trauma COMPARISON: None available. TECHNIQUE: 5 images are submitted Small rounded density adjacent the ulnar styloid may represent sequela of previous injury. No evidence for an acute fracture or dislocation on the imaging submitted. XR/XR hand wrist LT IMPRESSION: No convincing evidence for acute fracture or dislocation on the imaging submitted. Small rounded density adjacent to the ulnar styloid is likely the sequela of previous injury.
[2023-06-26 17:23] VITALS: BP 118/92; BP 133/89; PULSE 103; PULSE 93; RESP 20; TEMP 36.3; O2SAT 96; O2SAT 97; BMI 42.7
--- NOTE | 2023-06-26 18:15 | PC.NURSE ---
Pt has was brought in after punching a window. Pt reports not taking his meds for 1 week. He claims he went to the ED at [facility] yesterday and was sik. He was there for one jose angel. Pt uses [facility] in [facility]. His Pharmacy is closed at this time. A request was made by pt to have a melatonin order prn tonight for sleep. The request was sent to pending approval. Pt is stable at this time.
--- NOTE | 2023-06-26 18:49 | ED_ITS ---
HPI - Psych General Chief Complaint: Psychiatric Symptoms Stated Complaint: CRISIS Time Seen by Provider: 06/26/23 18:16 Source: patient Mode of arrival: ambulatory Limitations: no limitations History of Present Illness HPI Narrative: 22 yold male wth pmh of seizure, developmental disability, XXYY syndrome presents to the ED for argument with care home. patient does not want to go back to the care home. patient states arguemnt was verbal only. patient denies any suicidal/homicidal ideation. Related Data Allergies Allergy/AdvReac Type Severity Reaction Status Date / Time methylphenidate Allergy Unknown UNKNOWN Verified 06/26/23 18:11 [From RITALIN] shrimp [SHRIMP] Allergy Unknown HIVES Verified 06/26/23 18:11 haloperidol [From Haldol] Allergy Involuntary Verified 06/26/23 18:11 Spasms Review of Systems Review of Systems: argument Yes all other systems are reviewed and are negative [facility] Past Medical History Medical History Adjustment disorder Chronic abdominal pain Developmental disability Dyspnea Intellectual developmental disorder, severe Seborrheic dermatitis Seizures XXYY syndrome Surgical History History of testicular surgery Family History Family History Father No problems noted. Mother Hypertension Diabetes Other History of brain cancer Social History Social History Household Members: Other Household Members Other:: care home Housing: Other Do you presently have visiting nurse or other home services: No Alcohol intake: never Patient Tobacco Use Status: Never used Tobacco Tobacco use type: Cigarette Years Smoked: 16 years old Smoked in Last 30 Days: No e-Cigarette/Vaping Use: Never Used Second Hand Smoke Exposure: No Use of substances other than those prescribed or required for medical reasons: No Substance Use Type: Marijuana Advance Directives: No Advance Directives Information Provided: No service: No Current occupational status: disabled Cognitive needs: Yes Hearing needs: No Vision needs: No Physical Exam Vital Signs: Vital Signs: Last Vital Signs Temp 98.1 F 06/26/23 20:37 Pulse 85 06/26/23 20:37 Resp 18 06/27/23 01:03 BP 125/70 06/26/23 20:37 Pulse Ox 94 06/26/23 20:37 O2 Del Method Room Air 06/26/23 20:37 BMI result Body Mass Index 42.7 Const: General: cooperative, healthy appearing, comfortable, no acute distress, well developed, alert and awake Orientation/consciousness: oriented to person, oriented to place, oriented to time and patient oriented x3 HEENT: Head: Yes normal to inspection, Yes No palpable skull fracture present, Yes normocephalic, Yes atraumatic and No abrasion Ears: hearing grossly normal bilaterally, external ears normal, TM's normal bilaterally, TM normal on the right, TM normal on the left, EAC's normal, mastoids normal and no periauricular adenopathy Eyes: General: appearance normal, both eyes and all related structures Neck: Neck: Yes normal visual inspection, Yes full ROM, Yes no lymphadenopathy, Yes no meningeal signs, Yes trachea midline, Yes supple, No anterior neck swelling and No tender Chest: Chest palpation & inspection: normal inspection of the chest and normal palpation of entire chest wall Resp: Effort & Inspection: normal respiratory effort and able to speak in complete sentences Auscultation: clear to auscultation bilaterally Cardio: Jugular venous distension: no JVD Heart sounds: S1 normal heart sound present and S2 normal heart sound present GI: Inspection: Yes normal to inspection and No abdominal wall ecchymosis Palpation (GI): Soft to palpation, not firm, nontender, no guarding and not rigid : General: No CVA tenderness and Yes no CVA tenderness Back/Spine/Pelvis: Back: no CVA tenderness, No CVA tenderness and No back tenderness Skin: General skin exam: no rashes or lesions noted, elasticity normal and turgor normal Neuro: General: oriented to person, oriented to place, oriented to time, patient oriented x3, gait normal, tone normal, moves all extremities, Normal light touch and pain sensation, no meningeal signs, no focal motor deficits, CN's II-XI intact bilaterally and normal sensation to monofilament Extrem: General: Yes normal to inspection and Yes full ROM Psych: Appearance: grossly normal, well kempt and not disheveled Medications Administered Discontinued Medications Generic Name Dose Route Start Last Admin Trade Name Freq PRN Reason Stop Dose Admin Chlorpromazine HCl 25 mg 06/26/23 22:14 06/26/23 22:50 Chlorpromazine Hcl 25 Mg Tablet PO 06/26/23 22:15 25 mg ONCE ONE Administration Melatonin 3 mg 06/26/23 22:14 06/26/23 22:50 Melatonin 3 Mg Tablet PO 06/26/23 22:15 3 mg ONCE ONE Administration Olanzapine 10 mg 06/26/23 23:47 06/26/23 23:54 Olanzapine 10 Mg Tablet PO 06/26/23 23:48 10 mg ONCE ONE Administration Quetiapine Fumarate 400 mg 06/26/23 22:14 06/26/23 22:50 Quetiapine Fumarate 400 Mg Tablet PO 06/26/23 22:15 400 mg ONCE ONE Administration Medical Decision Making Medical Decision Making [facility] Narrative: 22-year-old male presents to ED for having argument with care home. Patient is not suicidal homicidal. Patient awaiting care Team consult evaluation. Patient stable. Patient was sent for hand x-ray due to patient admitted to [facility] earlier today Differential Diagnosis Differential Diagnoses: The differential diagnosis associated with the presentation includes (Suicidal, homicidal, fracture, dislocation) Admission/Observation Consideration of admission/observation: Escalation of care including admission/observation considered Consult Healthcare Provider Management of the patient was discussed with: Ship'S Officer (Care team) Lab Data [facility] Lab Attestation statement: I reviewed the patient's lab results. Labs: Lab Results 06/26/23 06/26/23 Range/Units 20:40 20:40 Urine Color Dark Yellow Urine Appearance Clear Urine pH 6.5 (5.0-9.0) Ur Specific [place] >= 1.030 H (1.005-1.025) Urine Protein Negative (Neg-Trace) mg/dL Urine Glucose (UA) Negative (Negative) mg/dL Urine Ketones Trace (Negative) mg/dL Urine Blood Negative (Negative) Urine Nitrite Negative (Negative) Ur Leukocyte Esterase Negative (Negative) Urine Opiates Screen Not Detected (Not Detect) Urine Fentanyl Screen Not Detected (Not Detect) Ur Barbiturates Screen Not Detected (Not Detect) Ur Phencyclidine Scrn Not Detected (Not Detect) Ur Amphetamines Screen Not Detected (Not Detect) U Benzodiazepines Scrn Not Detected (Not Detect) Urine Cocaine Screen Not Detected (Not Detect) U Marijuana (THC) Screen POSITIVE H (Not Detect) Independent Interpretation I performed an independent interpretation of an: Plain X-Ray Radiology Impression Discussion of test interpretation with radiology: I have reviewed the radiologist's reading. External Record Review External record reviewed: Other (prior ED visit) Discharge Plan Discharge Clinical Impression: Developmental disability Patient Disposition: Still a Patient Interventions: [place]-Suicide Risk Severity Scale Last Done: 06/26/23 17:30
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
--- NOTE | 2023-06-26 20:26 | MHC.EDTECH ---
t/w moved pt belongings to locker #11
[2023-06-26 20:37] VITALS: BP 125/70; PULSE 85; RESP 17; TEMP 36.7; O2SAT 94
[2023-06-26 20:47] LABS: Appearance Urine Clear; Color Urine Dark Yellow; Glucose Urine UA Negative (Negative); Leukocyte Esterase Urine Negative (Negative); Nitrite Urine Negative (Negative); PH 6.5 (5.0-9.0); Specific Gravity - Urine >= 1.030 (1.005-1.025); Urine Blood Negative (Negative); Urine Ketones Trace mg/dL (Negative); Urine Protein Negative (Neg-Trace)
[2023-06-26 20:55] LABS: Amphetamine Screen Urine Not Detected (Not Detect); Barbiturates, Urine Not Detected (Not Detect); Benzodiazepines Screen Urine Not Detected (Not Detect); Cannabinoid Screen Urine POSITIVE (Not Detect); Cocaine Screen Urine Not Detected (Not Detect); Fentanyl, urine Not Detected (Not Detect); Opiate Screen Urine Not Detected (Not Detect); Phencyclidine Screen Urine Not Detected (Not Detect)
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
[2023-06-26] MEDS: chlorproMAZINE HCl 25 MG TABLET PO (22:50)
[2023-06-26] MEDS: Melatonin 3 MG TABLET PO (22:50)
[2023-06-26] MEDS: QUEtiapine Fumarate 400 MG TABLET PO (22:50)
--- NOTE | 2023-06-26 22:51 | PC.NURSE ---
Assumed care of pt. pt lying on stretcher, no acute medical or behavioral concerns at this time. Sitter 1:1 at bedside for safety. medicated per orders.
[2023-06-26] MEDS: OLANZapine 10 MG TABLET PO (23:54)
[2023-06-27] VITALS (7 sets, daily range): BP systolic 101–129; BP diastolic 40–80; PULSE 64–91; RESP 16–20; TEMP 36.5–36.9; O2SAT 94–98
--- NOTE | 2023-06-27 02:34 | PC.NURSE ---
Pt sleeping, easily rousable, no acute medical or behavioral concerns at this time. 1:1 sitter at bedside for safety.
--- NOTE | 2023-06-27 09:04 | PC.NURSE ---
pt endorsing SI/HI with plan. pt considered high risk according to [place] suicide scale. international trade compliance manager aware and 1:1 sitter at bedside for pt safety
--- NOTE | 2023-06-27 10:00 | PC.NURSE ---
pt requests urinal, sts 08/07 BL leg pain that started this am
[2023-06-27] MEDS: guanFACINE HCl ER 2 MG TAB.ER.24H 4 MG PO (12:12)
[2023-06-27] MEDS: Divalproex Sodium ER 500 MG TAB.ER.24H 1000 MG PO ×2 (12:13→21:04)
[2023-06-27] MEDS: Docusate Sodium 100 MG CAPSULE PO ×2 (12:13→19:24)
[2023-06-27] MEDS: QUEtiapine Fumarate 400 MG TABLET PO ×2 (12:13→21:04)
[2023-06-27] MEDS: Dextroamphetamine/Amphetamine XR 10 MG CAP.ER.24H PO (12:14)
[2023-06-27] MEDS: Propranolol HCL LA 80 MG CAP.SA.24H 160 MG PO (12:14)
[2023-06-27] MEDS: OLANZapine 10 MG TABLET PO ×2 (12:15→18:04)
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
--- NOTE | 2023-06-27 12:42 | MHC.CARE ---
CARE Team advises Movement Education Specialist J Foard that pt will be discharged.
[2023-06-27] MEDS: Sennosides 8.6 MG TABLET PO (12:51)
[2023-06-27] MEDS: diphenhydrAMINE HCL 25 MG CAPSULE 50 MG PO ×2 (13:22→18:04)
[2023-06-27] MEDS: LORazepam 1 MG TABLET 2 MG PO ×2 (13:22→18:04)
[2023-06-27] MEDS: chlorproMAZINE HCl 25 MG TABLET PO ×2 (14:46→21:04)
--- NOTE | 2023-06-27 15:12 | PC.NURSE ---
discussion with manager women that there is no staff to accept pt back at longterm tonight. care team aware.
--- NOTE | 2023-06-27 15:25 | PC.NURSE ---
this RN spoke with head of pt's jail, Tk, stating that they will have a staff member at the home for 5:30 and will have the pt picked up around that time. charge nurse aware
[2023-06-27] MEDS: Acetaminophen 325 MG TABLET 975 MG PO (19:25)
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
[2023-06-27] MEDS: OLANZapine 10 MG VIAL IM (21:04)
--- NOTE | 2023-06-27 21:25 | PC.NURSE ---
late entry - assumed care of pt at 1900 - ambulance here at 1900 to pick pt up to bring him back to [facility] but pt refusing to get on stretcher and go back. pt says he wants to be medicated prior to going back. pt was medicated and still refusing to go back t facility. police, security, , charge entry specialist all involved. [facility] notified that pt refusing to go back. pt wants to be medicated with IM zyprexa and just go to sleep charge entry specialist aware of this. pt medicated per jan and is calm cooperative resting comfortably in hospital bed. unsure of plan from here. will ctm closely. sitter in place.
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
--- NOTE | 2023-06-28 01:40 | PC.NURSE ---
patient asleep comfortably in hospital bed. respirations even and unlabored. sitter in place. will ctm
[2023-06-28 06:00] VITALS: RESP 18
--- NOTE | 2023-06-28 06:21 | MHC.EDTECH ---
PATIENT SLEPT THROUGHOUT THE NIGHT ,BREATHS ARE EVEN AND UNLABORED ,PATIENT OBSERVER AT BEDSIDE .
--- NOTE | 2023-06-28 06:48 | PC.NURSE ---
pt slept throughout the night with no issues
--- NOTE | 2023-06-28 07:19 | MHC.EDTECH ---
Patient's bed was cleaned and linens changed.
--- NOTE | 2023-06-28 07:22 | MHC.EDTECH ---
Patient refused being cleaned after urinating on himself.
--- NOTE | 2023-06-28 07:41 | MHC.CARE ---
CARE Team contacts element burner Amilcar Ribeiro, advises Mr. Ribeiro that pt had refused to go back to the via ambulance last night (Mr. Ribeiro was aware) and that now, based on ED staff reports, pt is trying to walk out of the ED. Mr. Ribeiro stated he was going to call his boss in an attempt to come up with a plan.
--- NOTE | 2023-06-28 08:02 | MHC.CARE ---
CARE Team speaks with pt.? When asked why pt attempted to leave this morning, pt stated that he wanted to go.?? CARE Team stated that an ambulance would be arranged to return pt to his retirement.? Pt agreed.? Ed leadership was advised of the conversation. CARE Team spoke with [employer] Executive Producer Amilcar Ribeiro ([phone]) and advised him that pt will be returning to the retirement via ambulance this morning.? Mr. Ribeiro acknowledged. CARE Team advised ED leadership of the conversation.
--- NOTE | 2023-06-28 08:15 | MHC.CARE ---
CARE Team speaks with pt?s father Mr. David Casillas ([phone]) and advises him pt has been reluctant to return to the .? CARE Team asked if there was anything that has been effective in the past to get pt to return to his GH or to gain compliance.? Mr. Casillas stated that there was nothing that he knows of that could assist.? Mr. Casillas reports no family changes or any known trigger that would have caused pt?s recent frequent presentations to the Hospital.
[2023-06-28] MEDS: Dextroamphetamine/Amphetamine XR 10 MG CAP.ER.24H PO (08:30)
[2023-06-28] MEDS: Docusate Sodium 100 MG CAPSULE PO (08:30)
[2023-06-28] MEDS: Propranolol HCL LA 80 MG CAP.SA.24H 160 MG PO (08:30)
[2023-06-28] MEDS: guanFACINE HCl ER 2 MG TAB.ER.24H 4 MG PO (08:31)
[2023-06-28] MEDS: Divalproex Sodium ER 500 MG TAB.ER.24H 1000 MG PO (08:31)
[2023-06-28] MEDS: QUEtiapine Fumarate 400 MG TABLET PO (08:31)
[2023-06-28] MEDS: chlorproMAZINE HCl 25 MG TABLET PO (08:31)
--- NOTE | 2023-06-28 09:55 | PC.NURSE ---
Pt currently sleeping, no apparent pain or discomfort noted, sitter at bed side.
--- NOTE | 2023-06-28 10:48 | MHC.CARE ---
CARE Team met with pt and ambulance crew for transport. CARE Team spoke with pt regarding his departure, pt was in agreement to go. Pt did appear hesitant to go but climbed onto the stretcher with no issue. CARE Team escorted pt to the ambulance with the abulance crew and later met with staff who were on site to assist if needed.
== END 2023-06-28 10:54 | disposition still patient (30) ==
PROVIDERS: Emergency Provider Internal Medicine
DX: F89 Unspecified disorder of psychological development (principal); R45.1 Restlessness and agitation; M79.642 Pain in left hand; Z79.899 Other long term (current) drug therapy
CPT/HCPCS: 73110; 73130; 80307; 81003; 96372; 99285; S9485

== ENCOUNTER 2023-06-28 12:38 | Emergency (ER) | payer MEDICAID, SELFPAY ==
--- NOTE | 2023-06-28 12:47 | MHC.EDTECH ---
BELONGINGS IN LOCKER 12 PER KARATE TEACHER ERWIN
[2023-06-28 12:48] VITALS: BP 100/65; PULSE 86; O2SAT 96; BMI 52.2
[2023-06-28 12:51] VITALS: BP 114/67; PULSE 67; RESP 16; TEMP 36.4; O2SAT 95
--- NOTE | 2023-06-28 13:05 | ED.GENADULT ---
HPI - General Adult General Chief complaint: Psychiatric Symptoms Stated complaint: BEHAVIORAL CRISIS,WANTS TO HURT SELF,HAS PLAN Time Seen by Provider: 06/28/23 13:00 Source: patient and EMS Mode of arrival: EMS Limitations: no limitations History of Present Illness HPI narrative: 22-year-old male with frequent visits the emergency department presents with threats to hurt himself. Patient has been in the emergency department multiple times and in fact was discharged earlier today. Patient is unclear what happened between now and his most recent discharge. Offers no plan. He has not caused any self-harming behavior at this point. While in the emergency department he has been taking his medications appropriately. There is no clear relieving or exacerbating features. Patient describes his own symptoms as severe. Patient has been evaluated multiple times by our care team. He lives currently in a correction. Related Data Home Medications Medication Instructions Recorded Confirmed chlorpromazine 25 mg tablet 25 mg PO TID 06/27/23 06/27/23 dextroamphetamine-amphetamine ER 1 cap PO QAM 06/27/23 06/27/23 10 mg 24hr capsule,extend release (Adderall XR) divalproex 500 mg tablet,extended 1,000 mg PO BID 06/27/23 06/27/23 release 24 hr docusate sodium 100 mg capsule 100 mg PO BID 06/27/23 06/27/23 guanfacine 4 mg tablet,extended 4 mg PO DAILY 06/27/23 06/27/23 release 24 hr melatonin 5 mg tablet 5 mg PO BEDTIME PRN Sleep 06/27/23 06/27/23 propranolol 160 mg capsule,24 160 mg PO DAILY 06/27/23 06/27/23 hr,extended release quetiapine 400 mg tablet 400 mg PO BID 06/27/23 06/27/23 sennosides 8.6 mg tablet (senna) 8.6 mg PO DAILY 06/27/23 06/27/23 Allergies Allergy/AdvReac Type Severity Reaction Status Date / Time methylphenidate Allergy Unknown UNKNOWN Verified 06/26/23 18:11 [From RITALIN] shrimp [SHRIMP] Allergy Unknown HIVES Verified 06/26/23 18:11 haloperidol [From Haldol] Allergy Involuntary Verified 06/26/23 18:11 Spasms Review of Systems Review of Systems: CONSTITUTIONAL: Denies weight loss, fever and chills. HEENT: Denies changes in vision and hearing. RESPIRATORY: Denies SOB and cough. CV: Denies palpitations no CP. GI: Denies abdominal pain, nausea, vomiting and diarrhea. : Denies dysuria and urinary frequency. MSK: Denies myalgia and joint pain. SKIN: Denies rash and pruritus. NEUROLOGICAL: Denies headache and syncope. PSYCHIATRIC: See HPI All other ROS are negative unless in HPI PMFSH Past Medical History Medical History Adjustment disorder Chronic abdominal pain Developmental disability Dyspnea Intellectual developmental disorder, severe Seborrheic dermatitis Seizures XXYY syndrome Surgical History History of testicular surgery Family History Family History Father No problems noted. Mother Hypertension Diabetes Other History of brain cancer Social History Social History Household Members: Other Household Members Other:: correction Housing: Other Do you presently have visiting nurse or other home services: No Alcohol intake: never Patient Tobacco Use Status: Never used Tobacco Tobacco use type: Cigarette Years Smoked: 16 years old Smoked in Last 30 Days: Yes e-Cigarette/Vaping Use: Never Used Second Hand Smoke Exposure: No Use of substances other than those prescribed or required for medical reasons: Yes Substance Use Type: Marijuana service: No Current occupational status: disabled Cognitive needs: Yes Hearing needs: No Vision needs: No Physical Exam ED Vital Signs: Vital Signs - 24 hr 06/28/23 12:51 Temperature 97.5 F Pulse Rate 67 Respiratory Rate 16 Blood Pressure 114/67 Pulse Oximetry 95 Oxygen Delivery Method Room Air BMI result Body Mass Index 52.2 GEN: Well developed, no acute distress, alert, oriented HEENT: Normocephalic, atraumatic, normal external ears, nose appears normal Eyes: Normal to appearance Neck: Supple, no lymphadenopathy Respiratory: Talks in complete sentences, no respiratory distress Extremities: No clubbing cyanosis or edema Neurologic: No focal neurologic deficits, cranial nerves 2-12 intact, gait normal Skin: No rash Medical Decision Making Medical Decision Making MDM Narrative: 22-year-old male with history of developmental delay, intermittent explosive behavior, adjustment disorder, etc. presents for evaluation. Patient says he wants to participate and self-harming behavior. He offers no plan. He has just been discharged in with multiple evaluations by our care team. At this point, patient is somewhat agitated. I believe this is a behavioral issue. This is not an acute psychiatric issue. Patient would be best managed in his correction setting. He he is essentially being institutionalized in the emergency department which is not appropriate setting for therapy and behavioral improvement. Patient does not pose an imminent threat to himself or to others and therefore does not warrant inpatient treatment at this time. It is likely that in the emergency department he is getting 1 on 1 care which is positively reinforcing his recurrent visits to the emergency department. At this point, I will discharge the patient. Unfortunately if he chooses to escalate, we will have to escort him out of the emergency department and if need be call police department. Again, I want to stress the importance that patient does not appear to pose an imminent threat to himself or to other people. He has no homicidal ideation. He does claim some suicidal ideation but no plan. He has been evaluated multiple times by our care team. We are all in agreement that this is actually a behavioral issue and does not require emergent hospitalization. At this point I would like to do my best to avoid any physical or chemical restraints. This was conveyed to the patient as well. Differential Diagnosis Differential Diagnoses: The differential diagnosis associated with the presentation includes (Adjustment reaction, mood disorder, personality disorder, depression, anxiety, PTSD, agitation) Independent Historian Clinical information obtained from an independent historian. History obtained from or confirmed by: EMS External Record Review External record reviewed: Inpatient record Prescription Management I considered prescription management with: Other (Psychiatric medications) Social Determinants Patient?s care significantly limited by Social Determinants of Health including: Other Social Determinant of Health ([facility]) Discharge Plan Discharge Clinical Impression: Adjustment disorder, Intermittent explosive disorder in adult Patient Disposition: Home, Self-Care Instructions: Stress (ED), Depression (ED), Anxiety (ED) Prescriptions: No Action sennosides [senna] 8.6 mg tablet 8.6 mg PO DAILY propranolol 160 mg capsule,extended release 24 hr 160 mg PO DAILY chlorpromazine 25 mg tablet 25 mg PO TID divalproex 500 mg tablet extended release 24 hr 1,000 mg PO BID docusate sodium 100 mg capsule 100 mg PO BID dextroamphetamine-amphetamine [Adderall XR] 10 mg capsule,extended release 24hr 1 cap PO QAM quetiapine 400 mg tablet 400 mg PO BID melatonin 5 mg Tablet 5 mg PO BEDTIME PRN (Reason: Sleep) guanfacine 4 mg tablet extended release 24 hr 4 mg PO DAILY Referrals: [facility] [Provider Group] Interventions: [place]-Suicide Risk Severity Scale Last Done: 06/28/23 12:53
== END 2023-06-28 14:02 | disposition home or self-care (01) ==
PROVIDERS: Emergency Provider Emergency Medicine
DX: F43.20 Adjustment disorder, unspecified (principal); F63.81 Intermittent explosive disorder; F72 Severe intellectual disabilities; F12.90 Cannabis use, unspecified, uncomplicated; Z79.899 Other long term (current) drug therapy
CPT/HCPCS: 99284; 99285

== ENCOUNTER 2023-07-09 00:20 | Emergency (ER) | payer MEDICAID, SELFPAY ==
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
[2023-07-09 00:26] VITALS: BP 113/48; BP 121/68; PULSE 74; PULSE 77; RESP 16; TEMP 36.7; O2SAT 98; BMI 22.0
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
[2023-07-09] MEDS: Lidocaine 4 % Patch ADH..PATCH 1 PATCH TRANSDERMA (01:47)
[2023-07-09 02:55] VITALS: BP 120/64; PULSE 71; RESP 16; TEMP 36.1; O2SAT 96
[2023-07-09 04:47] VITALS: BP 114/75; PULSE 62; RESP 16; TEMP 36.7; O2SAT 98
[2023-07-09 06:00] VITALS: BP 127/80; PULSE 81; RESP 16; TEMP 36.2; O2SAT 98
--- NOTE | 2023-07-09 06:00 | PC.NURSE ---
Call contact through the course of the evening, finally got a hold of ironing worker. Will be coming to scrap picker shortly.
== END 2023-07-09 06:56 | disposition home or self-care (01) ==
PROVIDERS: Emergency Provider Emergency Medicine
DX: S20.212A Contusion of left front wall of thorax, initial encounter (principal); Y04.2XXA Assault by strike against or bumped into by another person, initial encounter; Y93.9 Activity, unspecified; Y92.9 Unspecified place or not applicable; Y99.9 Unspecified external cause status; R07.81 Pleurodynia
CPT/HCPCS: 71101; 99283; 99284

== ENCOUNTER 2023-07-12 20:01 | Emergency (ER) | payer MEDICAID, SELFPAY ==
--- NOTE | 2023-07-12 | ECG_ITS ---
Test Reason : polysubstance Blood Pressure : / mmHG Vent. Rate : 075 BPM Atrial Rate : 075 BPM P-R Int : 156 ms QRS Dur : 088 ms QT Int : 378 ms P-R-T Axes : 051 020 021 degrees QTc Int : 422 ms Normal sinus rhythm Normal ECG When compared with ECG of 13-JUN-2023 22:48, No significant change was found Referred By: Generic ED Physician Electronically Signed By:JACOBO LAWRENCE
[2023-07-12 20:06] VITALS: BP 125/79; PULSE 94; RESP 17; TEMP 36.9; O2SAT 95; BMI 49.8
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
[2023-07-12 21:21] LABS: Amphetamine Screen Urine Not Detected (Not Detect); Barbiturates, Urine Not Detected (Not Detect); Benzodiazepines Screen Urine Not Detected (Not Detect); Cannabinoid Screen Urine POSITIVE (Not Detect); Cocaine Screen Urine Not Detected (Not Detect); Fentanyl, urine Not Detected (Not Detect); Opiate Screen Urine Not Detected (Not Detect); Phencyclidine Screen Urine Not Detected (Not Detect)
[2023-07-12 21:27] LABS: Troponin-I High Sensitivity < 2.7 ng/L (<3.5-35.0)
--- NOTE | 2023-07-12 21:39 | PHA.MEDREC ---
Pharmacy Consult ? Medication Reconciliation Pharmacy has reviewed the medication reconciliation completed by Alex.
[2023-07-12 22:30] VITALS: BP 118/73; PULSE 88; RESP 17; TEMP 36.8; O2SAT 96
[2023-07-12] MEDS: chlorproMAZINE HCl 25 MG TABLET PO (22:40)
[2023-07-12 23:29] LABS: Troponin-I High Sensitivity < 2.7 ng/L (<3.5-35.0)
[2023-07-12] MEDS: LORazepam 1 MG TABLET PO (23:33)
== END 2023-07-13 00:04 | disposition home or self-care (01) ==
PROVIDERS: Emergency Provider Emergency Medicine
DX: R07.9 Chest pain, unspecified (principal); Z79.899 Other long term (current) drug therapy
CPT/HCPCS: 36415; 80307; 84484; 93005; 99284

== ENCOUNTER 2023-07-13 16:43 | Emergency (ER) | payer MEDICAID, SELFPAY ==
[2023-07-13 16:48] VITALS: BP 136/90; BP 138/82; PULSE 84; PULSE 85; RESP 18; TEMP 36.6; O2SAT 100; O2SAT 95; BMI 49.8
[2023-07-13 17:21] VITALS: BP 135/73; PULSE 78; RESP 16; TEMP 36.9; O2SAT 97
[2023-07-13 17:27] LABS: Appearance Urine Clear; Color Urine Dark Yellow; Glucose Urine UA Negative (Negative); Leukocyte Esterase Urine Negative (Negative); Nitrite Urine Negative (Negative); Specific Gravity - Urine >= 1.030 (1.005-1.025); UMIC TRIGGER UACC YES; Urine Blood Negative (Negative); Urine Ketones Trace mg/dL (Negative); Urine Protein 30 (1+) mg/dL (Neg-Trace)
[2023-07-13 17:29] LABS: Bacteria Urine None Seen (None Seen); Hyaline Casts Urine 0-2 /LPF (0-2); RBC Urine 0-2 /HPF (0-2); Squamous Epithelial Cell Urine 0-2 /HPF (0-2); WBC Urine 0-5 /HPF (0-5)
[2023-07-13 17:40] LABS: Amphetamine Screen Urine Not Detected (Not Detect); Barbiturates, Urine Not Detected (Not Detect); Benzodiazepines Screen Urine Not Detected (Not Detect); Cannabinoid Screen Urine POSITIVE (Not Detect); Cocaine Screen Urine Not Detected (Not Detect); Fentanyl, urine Not Detected (Not Detect); Opiate Screen Urine Not Detected (Not Detect); Phencyclidine Screen Urine Not Detected (Not Detect)
[2023-07-13] MEDS: LORazepam 1 MG TABLET 2 MG PO (18:21)
--- NOTE | 2023-07-13 18:42 | PC.NURSE ---
calm and cooperative, states not feeling well. has been medically cleared. still states he wants to kill himself
[2023-07-13] MEDS: diphenhydrAMINE HCL 25 MG CAPSULE 50 MG PO (19:45)
[2023-07-13] MEDS: OLANZapine 10 MG TABLET PO (19:45)
[2023-07-13] MEDS: chlorproMAZINE HCl 25 MG TABLET PO (19:46)
[2023-07-13] MEDS: QUEtiapine Fumarate 400 MG TABLET PO (19:47)
[2023-07-13] MEDS: Divalproex Sodium ER 500 MG TAB.ER.24H 1000 MG PO (19:48)
[2023-07-13] MEDS: Docusate Sodium 100 MG CAPSULE PO (19:49)
--- NOTE | 2023-07-13 21:28 | ED_ITS ---
HPI - Psych General Chief Complaint: Psychiatric Symptoms Stated Complaint: SI, CRISIS, COCAINE USE PER EMS Time Seen by Provider: 07/13/23 18:04 Source: patient and EMS Mode of arrival: EMS Limitations: no limitations History of Present Illness HPI Narrative: Patient with history of XXYY syndrome, adjustment disorder, intermittent explosive disorder and developmental disability been here multiple times comes here as does not feel safe at his skilled nursing and using sounds cocaine and some pills for last 2 days feel nauseated no vomiting or diarrhea says could not sleep well does not feel safe with intention of SI. Patient says that he is not happy with few of the skilled nursing staff and wheneverthose staff is there he feels unsafe Related Data Home Medications Medication Instructions Recorded Confirmed chlorpromazine 25 mg tablet 25 mg PO TID 06/27/23 07/13/23 dextroamphetamine-amphetamine ER 1 cap PO QAM 06/27/23 07/13/23 10 mg 24hr capsule,extend release (Adderall XR) divalproex 500 mg tablet,extended 1,000 mg PO BID 06/27/23 07/13/23 release 24 hr docusate sodium 100 mg capsule 100 mg PO BID 06/27/23 07/13/23 guanfacine 4 mg tablet,extended 4 mg PO DAILY 06/27/23 07/13/23 release 24 hr melatonin 5 mg tablet 5 mg PO BEDTIME PRN Sleep 06/27/23 07/13/23 propranolol 160 mg capsule,24 160 mg PO DAILY 06/27/23 07/13/23 hr,extended release quetiapine 400 mg tablet 400 mg PO BID 06/27/23 07/13/23 sennosides 8.6 mg tablet (senna) 8.6 mg PO DAILY 06/27/23 07/13/23 Previous Rx's Medication Instructions Recorded lidocaine 5 % topical patch 1 patch topical DAILY #30 ea 07/09/23 Allergies Allergy/AdvReac Type Severity Reaction Status Date / Time methylphenidate Allergy Unknown UNKNOWN Verified 06/26/23 18:11 [From RITALIN] shrimp [SHRIMP] Allergy Unknown HIVES Verified 06/26/23 18:11 haloperidol [From Haldol] Allergy Involuntary Verified 06/26/23 18:11 Spasms lactose Allergy Diarrhea Verified 07/13/23 20:34 Review of Systems Review of Systems: Yes all other systems are reviewed and are negative PMFSH Past Medical History Medical History Adjustment disorder Chronic abdominal pain Developmental disability Dyspnea Intellectual developmental disorder, severe Seborrheic dermatitis Seizures XXYY syndrome Surgical History History of testicular surgery Family History Family History Father No problems noted. Mother Hypertension Diabetes Other History of brain cancer Social History Social History Household Members: Other Household Members Other:: skilled nursing Housing: Other Do you presently have visiting nurse or other home services: No Alcohol intake: never Patient Tobacco Use Status: Never used Tobacco Tobacco use type: Cigarette Years Smoked: 16 years old e-Cigarette/Vaping Use: Never Used Second Hand Smoke Exposure: No Substance Use Type: Marijuana Advance Directives: No Advance Directives Information Provided: No service: No Current occupational status: disabled Cognitive needs: Yes Hearing needs: No Vision needs: No Physical Exam Vital Signs: Vital Signs: Last Vital Signs Temp 98.5 F 07/13/23 17:21 Pulse 78 07/13/23 17:21 Resp 16 07/13/23 17:21 BP 135/73 07/13/23 17:21 Pulse Ox 97 07/13/23 17:21 O2 Del Method Room Air 07/13/23 16:48 BMI result Body Mass Index 49.8 Appearance: Alert. Oriented X3. No acute distress. Eyes: PERRLA, No Nystagmus ENT: Pharynx normal. Oral Mucosa moist Neck: Normal inspection. Neck supple. CVS: Normal heart rate and rhythm. Pulses normal. Respiratory: No respiratory distress. Equal air entry bilateral, no wheezing/rales/rhonchi Abdomen: Soft and nontender. Bowel sounds are present, no mass palpable, no CVA tenderness Skin: Skin warm and dry. Normal skin color. Normal skin turgor. Extremities: No lower extremity edema. No calf tenderness psych: Feels unsafe at home denies any SI at this time no hallucinations/ delusions Neuro: Oriented X 3. No motor deficit. No sensory deficit.No cerebellar signs , cranial nerves II-XII intact Medications Administered Generic Name Dose Route Start Last Admin Trade Name Jayant PRN Reason Stop Dose Admin Chlorpromazine HCl 25 mg 07/13/23 21:00 07/13/23 19:46 Chlorpromazine Hcl 25 Mg Tablet PO 25 mg TID KATTY Administration Divalproex Sodium 1,000 mg 07/13/23 21:00 07/13/23 19:48 Divalproex Sodium Er 500 Mg Tab.Er.24h PO 1,000 mg BID KATTY Administration Docusate Sodium 100 mg 07/13/23 21:00 07/13/23 19:49 Docusate Sodium 100 Mg Capsule PO 100 mg BID KATTY Administration Quetiapine Fumarate 400 mg 07/13/23 21:00 07/13/23 19:47 Quetiapine Fumarate 400 Mg Tablet PO 400 mg BID KATTY Administration Discontinued Medications Generic Name Dose Route Start Last Admin Trade Name Jayant PRN Reason Stop Dose Admin Diphenhydramine HCl 50 mg 07/13/23 19:34 07/13/23 19:45 Diphenhydramine Hcl 25 Mg Capsule PO 07/13/23 19:35 50 mg ONCE ONE Administration Lorazepam 2 mg 07/13/23 18:12 07/13/23 18:21 Lorazepam 1 Mg Tablet PO 07/13/23 18:13 2 mg ONCE ONE Administration Olanzapine 10 mg 07/13/23 19:34 07/13/23 19:45 Olanzapine 10 Mg Tablet PO 07/13/23 19:35 10 mg ONCE ONE Administration Medical Decision Making Medical Decision Making [facility] Narrative: Patient says that he has been using cocaine with urine is negative patient feeling unsafe to go back to group not sure about SI at this time will get care Team consult Lab Data [facility] Lab Attestation statement: I reviewed the patient's lab results. Labs: Lab Results 07/13/23 07/13/23 Range/Units 17:16 17:16 Urine Color Dark Yellow Urine Appearance Clear Urine pH 6.0 (5.0-9.0) Ur Specific Lyman >= 1.030 H (1.005-1.025) Urine Protein 30 (1+) H (Neg-Trace) mg/dL Urine Glucose (UA) Negative (Negative) mg/dL Urine Ketones Trace (Negative) mg/dL Urine Blood Negative (Negative) Urine Nitrite Negative (Negative) Ur Leukocyte Esterase Negative (Negative) Urine RBC 0-2 (0-2) /HPF Urine WBC 0-5 (0-5) /HPF Ur Squamous Epith Cells 0-2 (0-2) /HPF Urine Bacteria None Seen (None Seen) Hyaline Casts 0-2 (0-2) /LPF Urine Opiates Screen Not Detected (Not Detect) Urine Fentanyl Screen Not Detected (Not Detect) Ur Barbiturates Screen Not Detected (Not Detect) Ur Phencyclidine Scrn Not Detected (Not Detect) Ur Amphetamines Screen Not Detected (Not Detect) U Benzodiazepines Scrn Not Detected (Not Detect) Urine Cocaine Screen Not Detected (Not Detect) U Marijuana (THC) Screen POSITIVE H (Not Detect) Discharge Plan Discharge Clinical Impression: Suicidal ideation, Bipolar disorder Patient Disposition: Still a Patient Prescriptions: No Action sennosides [senna] 8.6 mg tablet 8.6 mg PO DAILY propranolol 160 mg capsule,extended release 24 hr 160 mg PO DAILY chlorpromazine 25 mg tablet 25 mg PO TID divalproex 500 mg tablet extended release 24 hr 1,000 mg PO BID docusate sodium 100 mg capsule 100 mg PO BID dextroamphetamine-amphetamine [Adderall XR] 10 mg capsule,extended release 24hr 1 cap PO QAM quetiapine 400 mg tablet 400 mg PO BID melatonin 5 mg Tablet 5 mg PO BEDTIME PRN (Reason: Sleep) guanfacine 4 mg tablet extended release 24 hr 4 mg PO DAILY lidocaine 5 % adhesive patch,medicated 1 patch topical DAILY Qty: 30 0RF Rx Instructions: leave on most painful area for up to 12 hrs Interventions: Bulloch-Suicide Risk Severity Scale Last Done: 07/13/23 17:49
--- NOTE | 2023-07-13 21:48 | MHC.CARE ---
Per nurse Alex, Pt has been medicated and is not interviewable. He will be assessed in the morning. Pt also has no BAL currently.
--- NOTE | 2023-07-14 05:36 | PC.NURSE ---
Patient had one explosive behavior exhibition, patient tried to pull whole glass panel, security was called for safety, Olanzapine 10 mg PO and Benadryl 50 mg po along with his HS medication was administered at 1945 with + effect, patient behavior is unpredictable, care consult ordered/pending evaluation, patient slept through the night, no distress observed/reported, VSS, will continue to monitor.
[2023-07-14 06:15] VITALS: RESP 16
[2023-07-14 06:18] VITALS: RESP 18
--- NOTE | 2023-07-14 07:24 | PC.NURSE ---
pt received in bed, sleeping. will monitor for safety. plan is for evaluation this am by CARE team
--- NOTE | 2023-07-14 10:34 | PC.NURSE ---
pt refused all medications, states I am upset . Will not engage. Seen by ED MD. Pt to be discharged back to residence. Program head notified via message.
== END 2023-07-14 11:31 | disposition home or self-care (01) ==
PROVIDERS: Emergency Provider Internal Medicine
DX: F31.9 Bipolar disorder, unspecified (principal); R45.851 Suicidal ideations; F14.10 Cocaine abuse, uncomplicated; F63.81 Intermittent explosive disorder; R11.2 Nausea with vomiting, unspecified; Z79.899 Other long term (current) drug therapy; Z87.891 Personal history of nicotine dependence
CPT/HCPCS: 80307; 81001; 99284; 99285

== ENCOUNTER 2023-07-14 16:54 | Emergency (ER) | payer MEDICAID, SELFPAY ==
[2023-07-14 17:03] VITALS: BP 147/97; PULSE 124; RESP 18; TEMP 36.3; O2SAT 96; BMI 38.5
--- NOTE | 2023-07-14 18:24 | ED_ITS ---
HPI - Psych General Chief Complaint: Psychiatric Symptoms Stated Complaint: SECTION 12 Time Seen by Provider: 07/14/23 18:23 Source: patient Mode of arrival: EMS Limitations: no limitations History of Present Illness HPI Narrative: Patient comes to the emergency room complaining of aggressive behavior at the [facility]. According to the staff and EMS, patient threw a chair. Patient states that he knows that he was angry, denies SI or HI. Patient states that he does not want any treatment. Related Data Home Medications Medication Instructions Recorded Confirmed chlorpromazine 25 mg tablet 25 mg PO TID 06/27/23 07/13/23 dextroamphetamine-amphetamine ER 1 cap PO QAM 06/27/23 07/13/23 10 mg 24hr capsule,extend release (Adderall XR) divalproex 500 mg tablet,extended 1,000 mg PO BID 06/27/23 07/13/23 release 24 hr docusate sodium 100 mg capsule 100 mg PO BID 06/27/23 07/13/23 guanfacine 4 mg tablet,extended 4 mg PO DAILY 06/27/23 07/13/23 release 24 hr melatonin 5 mg tablet 5 mg PO BEDTIME PRN Sleep 06/27/23 07/13/23 propranolol 160 mg capsule,24 160 mg PO DAILY 06/27/23 07/13/23 hr,extended release quetiapine 400 mg tablet 400 mg PO BID 06/27/23 07/13/23 sennosides 8.6 mg tablet (senna) 8.6 mg PO DAILY 06/27/23 07/13/23 Previous Rx's Medication Instructions Recorded lidocaine 5 % topical patch 1 patch topical DAILY #30 ea 07/09/23 Allergies Allergy/AdvReac Type Severity Reaction Status Date / Time methylphenidate Allergy Unknown UNKNOWN Verified 06/26/23 18:11 [From RITALIN] shrimp [SHRIMP] Allergy Unknown HIVES Verified 06/26/23 18:11 haloperidol [From Haldol] Allergy Involuntary Verified 06/26/23 18:11 Spasms lactose Allergy Diarrhea Verified 07/13/23 20:34 Review of Systems Review of Systems: Constitutional : No Weight loss, No Fever, No Chills, No Night Sweats, No Fatigue, No Malaise ENT/Mouth : No Hearing loss, No Ear Pain, No Nasal Congestion, No Sinus Pain, No Hoarseness, No sore throat, No Rhinorrhea, No Swallowing Difficulty Eyes: No Eye Pain, No Swelling, No Redness, No Foreign Body, No Discharge, No Vision Changes Cardiovascular : No Chest Pain, No SOB, No Dyspnea on Exertion, No Orthopnea, No Edema, No Palpitations Respiratory : No Cough, No Sputum, No Wheezing, No Smoke Exposure, No Dyspnea Gastrointestinal : No Nausea, No Vomiting, No Diarrhea, No Constipation, No abdominal Pain, No Hematochezia, No Melena Genitourinary : no irregular bleeding, No Dysuria, No Urinary Frequency, No Hematuria, No Urinary Incontinence, No Urgency, No Flank Pain, No Urinary Flow Changes, No Hesitancy Musculoskeletal : No joint pain, No Myalgias, No Joint Swelling Skin : No Skin Lesions, No rash Neuro : No Weakness, No Numbness, No Paresthesias, No Loss of Consciousness, No Dizziness, No Headache Psych : Complaining of anxiety, anger, denies SI or HI Heme/Lymph: No Bruising, No Bleeding,No Lymphadenopathy Endocrine : No Polyuria, No Polydipsia, No Temperature Intolerance PMFSH Past Medical History Medical History Adjustment disorder Chronic abdominal pain Developmental disability Dyspnea Intellectual developmental disorder, severe Seborrheic dermatitis Seizures XXYY syndrome Surgical History History of testicular surgery Family History Family History Father No problems noted. Mother Hypertension Diabetes Other History of brain cancer Social History Social History Household Members: Other Household Members Other:: [facility] Housing: Other Do you presently have visiting nurse or other home services: No Alcohol intake: never Patient Tobacco Use Status: Never used Tobacco Tobacco use type: Cigarette Years Smoked: 16 years old e-Cigarette/Vaping Use: Never Used Second Hand Smoke Exposure: No Substance Use Type: Marijuana Advance Directives: No Advance Directives Information Provided: No service: No Current occupational status: disabled Cognitive needs: Yes Hearing needs: No Vision needs: No Physical Exam Vital Signs: Vital Signs: Last Vital Signs Temp 97.4 F 07/14/23 17:03 Pulse 124 H 07/14/23 17:03 Resp 18 07/14/23 17:03 BP 147/97 H 07/14/23 17:03 Pulse Ox 96 07/14/23 17:03 O2 Del Method Room Air 07/14/23 17:03 BMI result Body Mass Index 38.5 Const: Other: Appearance: Alert. Oriented X3. No acute distress. Eyes: Pupils equal, round and reactive to light. ENT: Pharynx normal. Neck: Normal inspection. Neck supple. No lymph nodes noted. No crepitus CVS: Normal heart rate and rhythm. Pulses normal. Normal S1 and S2 Respiratory: No respiratory distress. Breath sounds normal. No Wheezing. No rales Abdomen: Soft and nontender. No rigidity. No distention. Skin: Skin warm and dry. Normal skin color. Normal skin turgor. Extremities: No lower extremity edema. No Lacerations. No Rash Neuro: Oriented X 3. No motor deficit. No sensory deficit. Moving all extremities. No slurred speech. CN 2 through 12 grossly intact Psych: Anxious, pacing, redirectable Medications Administered Discontinued Medications Generic Name Dose Route Start Last Admin Trade Name Jayant PRN Reason Stop Dose Admin Lorazepam 2 mg 07/14/23 18:01 07/14/23 18:29 Lorazepam 1 Mg Tablet PO 07/14/23 18:02 2 mg ONCE ONE Administration Medical Decision Making Medical Decision Making [facility] Narrative: -I discussed the patient with 3 staff members from the care team. We all agree that the patient has problem today is behavioral, not psychiatric. The [facility] needs to come up with a plan on how to manage the patient behaviorally. We all agree that the patient can be safely discharged. -patient declining any medical/psychiatric help. Patient would like to be discharged. While we wait for transferred for the patient, patient agreeable to take 2 mg of p.o. Ativan -patient denies suicidal homicidal ideation -patient being discharged Differential Diagnosis Differential Diagnoses: The differential diagnosis associated with the presentation includes (Anger, aggressive behavior) Discharge Plan Discharge Clinical Impression: Aggression, Anger Patient Disposition: Home, Self-Care Additional Instructions: Please follow-up with your primary care physician tomorrow. If you have any worsening or new symptoms, please return to the emergency room or call 911 Prescriptions: No Action sennosides [senna] 8.6 mg tablet 8.6 mg PO DAILY propranolol 160 mg capsule,extended release 24 hr 160 mg PO DAILY chlorpromazine 25 mg tablet 25 mg PO TID divalproex 500 mg tablet extended release 24 hr 1,000 mg PO BID docusate sodium 100 mg capsule 100 mg PO BID dextroamphetamine-amphetamine [Adderall XR] 10 mg capsule,extended release 24hr 1 cap PO QAM quetiapine 400 mg tablet 400 mg PO BID melatonin 5 mg Tablet 5 mg PO BEDTIME PRN (Reason: Sleep) guanfacine 4 mg tablet extended release 24 hr 4 mg PO DAILY lidocaine 5 % adhesive patch,medicated 1 patch topical DAILY Qty: 30 0RF Rx Instructions: leave on most painful area for up to 12 hrs
[2023-07-14] MEDS: LORazepam 1 MG TABLET 2 MG PO (18:29)
--- NOTE | 2023-07-14 18:34 | PC.NURSE ---
PT has been cleared by [facility], not psy[facility] behavioral retirement called to come order picker patient
--- NOTE | 2023-07-16 07:19 | PC.NURSE ---
COLUMBIA SCALE COMPLETED AFTER DISCHARGE -PT WAS NOT ASSESSED BY THIS RN, DOCUMENTATION FOR DISCHARGE OF CHART ONLY
== END 2023-07-14 19:30 | disposition home or self-care (01) ==
PROVIDERS: Emergency Provider Emergency Medicine
DX: F91.8 Other conduct disorders (principal); R45.4 Irritability and anger; Z79.899 Other long term (current) drug therapy
CPT/HCPCS: 99281; 99283

== ENCOUNTER 2023-07-15 20:32 | Emergency (ER) | payer MEDICAID, SELFPAY ==
[2023-07-15 20:51] VITALS: BP 114/73; PULSE 107; RESP 20; TEMP 36.4; O2SAT 96
[2023-07-15 20:52] VITALS: BMI 30.8
--- NOTE | 2023-07-15 20:53 | ED.PSYCH ---
HPI - Psych General Chief Complaint: Psychiatric Symptoms Stated Complaint: SI AND HI Time Seen by Provider: 07/15/23 20:41 Source: patient and EMS Mode of arrival: EMS Limitations: no limitations History of Present Illness HPI Narrative: 22-year-old male with multiple visits to the emergency department for previous psychiatric related issues presents with not feeling well. Patient reports feeling depressed and advocating for self-harming behavior. Patient has advocated that he might try to run in front of traffic or hang himself. This is not unusual for him. Patient also reports having escaped his skilled nursing and had ?lots of cocaine. ? Patient denies any chest pain, shortness of breath, fevers or chills. Patient reports that he does not like the way he is being treated at the skilled nursing which is why he says when he says. He has 1 other client that he lives with. He says the food is good where he lives. Patient reports that he would like to go back to the pod for the night. Related Data Home Medications Medication Instructions Recorded Confirmed chlorpromazine 25 mg tablet 25 mg PO TID 06/27/23 07/13/23 dextroamphetamine-amphetamine ER 1 cap PO QAM 06/27/23 07/13/23 10 mg 24hr capsule,extend release (Adderall XR) divalproex 500 mg tablet,extended 1,000 mg PO BID 06/27/23 07/13/23 release 24 hr docusate sodium 100 mg capsule 100 mg PO BID 06/27/23 07/13/23 guanfacine 4 mg tablet,extended 4 mg PO DAILY 06/27/23 07/13/23 release 24 hr melatonin 5 mg tablet 5 mg PO BEDTIME PRN Sleep 06/27/23 07/13/23 propranolol 160 mg capsule,24 160 mg PO DAILY 06/27/23 07/13/23 hr,extended release quetiapine 400 mg tablet 400 mg PO BID 06/27/23 07/13/23 sennosides 8.6 mg tablet (senna) 8.6 mg PO DAILY 06/27/23 07/13/23 Previous Rx's Medication Instructions Recorded lidocaine 5 % topical patch 1 patch topical DAILY #30 ea 07/09/23 Allergies Allergy/AdvReac Type Severity Reaction Status Date / Time methylphenidate Allergy Unknown UNKNOWN Verified 06/26/23 18:11 [From RITALIN] shrimp [SHRIMP] Allergy Unknown HIVES Verified 06/26/23 18:11 haloperidol [From Haldol] Allergy Involuntary Verified 06/26/23 18:11 Spasms lactose Allergy Diarrhea Verified 07/13/23 20:34 Review of Systems Review of Systems: CONSTITUTIONAL: Denies weight loss, fever and chills. HEENT: Denies changes in vision and hearing. RESPIRATORY: Denies SOB and cough. CV: Denies palpitations no CP. GI: Denies abdominal pain, nausea, vomiting and diarrhea. : Denies dysuria and urinary frequency. MSK: Denies myalgia and joint pain. SKIN: Denies rash and pruritus. NEUROLOGICAL: Denies headache and syncope. PSYCHIATRIC: See HPI All other ROS are negative unless in HPI PMFSH Past Medical History Medical History Adjustment disorder Chronic abdominal pain Developmental disability Dyspnea Intellectual developmental disorder, severe Seborrheic dermatitis Seizures XXYY syndrome Surgical History History of testicular surgery Family History Family History Father No problems noted. Mother Hypertension Diabetes Other History of brain cancer Social History Social History Household Members: Other Household Members Other:: skilled nursing Housing: Other Do you presently have visiting nurse or other home services: No Alcohol intake: never Patient Tobacco Use Status: Never used Tobacco Tobacco use type: Cigarette Years Smoked: 16 years old e-Cigarette/Vaping Use: Never Used Second Hand Smoke Exposure: No Substance Use Type: Marijuana Advance Directives: No Advance Directives Information Provided: No service: No Current occupational status: disabled Cognitive needs: Yes Hearing needs: No Vision needs: No Physical Exam Vital Signs: Vital Signs: Last Vital Signs Temp 97.6 F 07/15/23 20:51 Pulse 107 H 07/15/23 20:51 Resp 20 07/15/23 20:51 BP 114/73 07/15/23 20:51 Pulse Ox 96 07/15/23 20:51 O2 Del Method Room Air 07/15/23 20:51 BMI result Body Mass Index 30.8 GEN: Well developed, no acute distress, alert, oriented HEENT: Normocephalic, atraumatic, normal external ears, nose appears normal Eyes: Normal to appearance Neck: Supple, no lymphadenopathy Respiratory: Talks in complete sentences, no respiratory distress Extremities: No clubbing cyanosis or edema Neurologic: No focal neurologic deficits, cranial nerves 2-12 intact, gait normal Skin: No rash Course Reevaluation(s) Reevaluation #1: Patient reports wanting to leave. At this point I see no reason for him to stay in the emergency department. I would discharge him at this time. Time: 21:05 Medical Decision Making Medical Decision Making MDM Narrative: 22-year-old male with frequent visits to the emergency department with threats of self-harming behavior presents being angry at his skilled nursing. He reports wanting to go back to our Behavioral Health area for the night. He says he does not feel well. Reports being angry and upset with his skilled nursing. At this point, patient has been seen multiple times by our care team. Patient's behavior appears to be quite stable from his baseline. I do not believe he warrants any additional workup or care team evaluation. I will provide the patient with his nighttime medications, re-evaluate and if he is agreeable to taking his medications will likely discharge back to his skilled nursing. Differential Diagnosis Differential Diagnoses: The differential diagnosis associated with the presentation includes (Depression anxiety, anger, explosive behavior, mood disorder, malingering) External Record Review Previous psychiatric evaluation Prescription Management I considered prescription management with: Other (His usual medications) Chronic Conditions Patient?s care impacted by: Other (Psychiatric disorders) Discharge Plan Discharge Clinical Impression: Anger, Malingering Patient Disposition: Home, Self-Care Instructions: Stress (ED) Prescriptions: No Action sennosides [senna] 8.6 mg tablet 8.6 mg PO DAILY propranolol 160 mg capsule,extended release 24 hr 160 mg PO DAILY chlorpromazine 25 mg tablet 25 mg PO TID divalproex 500 mg tablet extended release 24 hr 1,000 mg PO BID docusate sodium 100 mg capsule 100 mg PO BID dextroamphetamine-amphetamine [Adderall XR] 10 mg capsule,extended release 24hr 1 cap PO QAM quetiapine 400 mg tablet 400 mg PO BID melatonin 5 mg Tablet 5 mg PO BEDTIME PRN (Reason: Sleep) guanfacine 4 mg tablet extended release 24 hr 4 mg PO DAILY lidocaine 5 % adhesive patch,medicated 1 patch topical DAILY Qty: 30 0RF Rx Instructions: leave on most painful area for up to 12 hrs Referrals: Miquel Torres MD [Physician] - 2 days
== END 2023-07-15 22:47 | disposition home or self-care (01) ==
PROVIDERS: Emergency Provider Emergency Medicine
DX: F43.29 Adjustment disorder with other symptoms (principal); Z76.5 Malingerer [conscious simulation]; R45.851 Suicidal ideations; F32.A Depression, unspecified; Z79.899 Other long term (current) drug therapy; Z87.891 Personal history of nicotine dependence
CPT/HCPCS: 99284

== ENCOUNTER 2023-07-17 15:36 | Emergency (ER) | payer MEDICAID, SELFPAY ==
[2023-07-17 15:50] VITALS: BP 128/67; BP 153/90; PULSE 93; PULSE 95; RESP 16; O2SAT 94; O2SAT 98; BMI 28.5
--- NOTE | 2023-07-17 16:04 | PC.NURSE ---
pt sts he is here for overdosing on cocaine. endorses SI/HI, stating he wants to choke himself out because he doesn't feel safe. pt is complaining that he wants to go to the pod and doesn't want to stay in a hallway bed because everytime he comes he gets to go right to the pod . pt starting to get agitated. asking who can section him, when a provider will see him, and when he can go to the pod. when telling the pt a provider has to see him first since he stated he took drugs and overdosed , the pt asked what if I tell you that I didn't take any drugs and lied, can I go straight to the pod then? pt currently stable, in this rn's view
[2023-07-17] MEDS: LORazepam 2 MG/ML VIAL IM (16:23)
[2023-07-17] MEDS: Haloperidol Lactate 5 MG/ML VIAL 10 MG IM (16:23)
--- NOTE | 2023-07-17 16:29 | ED.PSYCH ---
HPI - Psych General Chief Complaint: ETOH/Substance Use Stated Complaint: SI after cocaine use this morning Time Seen by Provider: 07/17/23 16:00 Source: patient Mode of arrival: ambulatory Limitations: no limitations History of Present Illness HPI Narrative: patient is a 22 old male presents emergency department via EMS from his correction with reports of suicidal ideations reporting To nursing staff that he overdosed on cocaine earlier today. however to myself, he states that he lied to the nurse about this, and then recanted this statement reporting that he did in fact use cocaine today. He reports a plan to choke himself out . He is requesting to be placed on a Section 12 at this time because he does not feel safe. He would like to be placed in the Behavioral pod at this time. He denies headache, dizziness, chest pain, shortness of breath, numbness or tingling of the extremities, abdominal pain with nausea, vomiting. He denies any alcohol or additional recreational drug usage. Related Data Home Medications Medication Instructions Recorded Confirmed chlorpromazine 25 mg tablet 25 mg PO TID 06/27/23 07/13/23 dextroamphetamine-amphetamine ER 1 cap PO QAM 06/27/23 07/13/23 10 mg 24hr capsule,extend release (Adderall XR) divalproex 500 mg tablet,extended 1,000 mg PO BID 06/27/23 07/13/23 release 24 hr docusate sodium 100 mg capsule 100 mg PO BID 06/27/23 07/13/23 guanfacine 4 mg tablet,extended 4 mg PO DAILY 06/27/23 07/13/23 release 24 hr melatonin 5 mg tablet 5 mg PO BEDTIME PRN Sleep 06/27/23 07/13/23 propranolol 160 mg capsule,24 160 mg PO DAILY 06/27/23 07/13/23 hr,extended release quetiapine 400 mg tablet 400 mg PO BID 06/27/23 07/13/23 sennosides 8.6 mg tablet (senna) 8.6 mg PO DAILY 06/27/23 07/13/23 Previous Rx's Medication Instructions Recorded lidocaine 5 % topical patch 1 patch topical DAILY #30 ea 07/09/23 Allergies Allergy/AdvReac Type Severity Reaction Status Date / Time methylphenidate Allergy Unknown UNKNOWN Verified 06/26/23 18:11 [From RITALIN] shrimp [SHRIMP] Allergy Unknown HIVES Verified 06/26/23 18:11 haloperidol [From Haldol] Allergy Involuntary Verified 06/26/23 18:11 Spasms lactose Allergy Diarrhea Verified 07/13/23 20:34 Review of Systems Review of Systems: Constitutional : No Fever, No Chills ENT/Mouth : No Ear Pain, No Nasal Congestion, No sore throat Eyes: No Eye Pain, No Swelling, No Redness Cardiovascular : No Chest Pain, No SOB Respiratory : No Cough, No Sputum, No Dyspnea Gastrointestinal : No Nausea, No Vomiting, No Diarrhea, No Hematochezia, No Melena Genitourinary : No Dysuria, No Urinary Frequency, No Hematuria Musculoskeletal : No Myalgias Skin : No Skin Lesions, No rash Neuro : No Weakness, No Numbness, No Paresthesias, No Dizziness, No Headache Psych : no Anxiety, no Depression, positive SI/HI Heme/Lymph: No Lymphadenopathy Endocrine : No Polyuria, No Polydipsia Yes all other systems are reviewed and are negative PMFSH Past Medical History Attestation statement: The following information was validated with the patient. Source: old records reviewed Medical History Adjustment disorder Chronic abdominal pain Developmental disability Dyspnea Intellectual developmental disorder, severe Seborrheic dermatitis Seizures XXYY syndrome Surgical History History of testicular surgery Family History Family History Father No problems noted. Mother Hypertension Diabetes Other History of brain cancer Social History Social History Household Members: Other Household Members Other:: correction Housing: Other Do you presently have visiting nurse or other home services: No Alcohol intake: never Patient Tobacco Use Status: Never used Tobacco Tobacco use type: Cigarette Years Smoked: 16 years old Smoked in Last 30 Days: Yes e-Cigarette/Vaping Use: Never Used Second Hand Smoke Exposure: No Use of substances other than those prescribed or required for medical reasons: Yes Substance Use Type: Crack/Cocaine and Marijuana Advance Directives: No Advance Directives Information Provided: No service: No Current occupational status: disabled Cognitive needs: Yes Hearing needs: No Vision needs: No Physical Exam Vital Signs: Vital Signs: Last Vital Signs Pulse 93 07/17/23 18:00 Resp 16 07/17/23 18:00 BP 125/69 07/17/23 18:00 Pulse Ox 96 07/17/23 18:00 O2 Del Method Room Air 07/17/23 18:00 BMI result Body Mass Index 28.5 Appearance: Alert.?Oriented to person, place and time. No acute distress.?Normal affect. Eyes: Pupils equal, round and reactive to light.? ENT: Pharynx normal.?? Neck: Normal inspection.? Neck supple.?? CVS: Heart sounds normal. Normal heart rate and rhythm.? Pulses normal.?? Respiratory: No respiratory distress.? Lung sounds clear to auscultation bilaterally?? Abdomen: Soft and non-tender. Normoactive bowel sounds. Skin: Skin warm and dry.? Normal skin color.? Extremities: No lower extremity edema.? Neuro: Moves all extremities spontaneously. Sensation intact bilaterally. CN II-XII intact. No focal neuro deficits. Ambulates with normal steady gait. Course Reevaluation(s) Reevaluation #1: Patient received chemical restraint; Haldol and lorazepam, provided Benadryl due to history of dystonia. A you was physically restrained by staff urine administration. He was then calm and cooperative in easily redirectable back to his room. He at this time continues to states that he was she did not actually use cocaine today. He expresses frustration about staff at his correction. He is currently denying any suicidal ideations Time: 16:29 Reevaluation #2: discussed patient plan of care with staff from care team. Agree that patient's behavior is Behavioral as opposed to psychiatric. He has had numerous visits to this emergency department with threats of self-harm behavior and aggression presenting a hicks from his correction with requests to be in our Behavioral Health on. He appears stable from his baseline upon re-evaluation. Do not think he remarks any additional workup or evaluation at this time. Feel that he is stable for discharge back to correction. Time: 20:20 Medications Administered Discontinued Medications Generic Name Dose Route Start Last Admin Trade Name Freq PRN Reason Stop Dose Admin Diphenhydramine HCl 50 mg 07/17/23 16:29 07/17/23 16:58 Diphenhydramine Hcl 50 Mg/Ml Vial IM 07/17/23 16:30 50 mg ONCE ONE Administration Haloperidol Lactate 10 mg 07/17/23 16:23 07/17/23 16:23 Haloperidol Lactate 5 Mg/Ml Vial IM 07/17/23 16:24 10 mg STAT STA Administration Lorazepam 2 mg 07/17/23 16:23 07/17/23 16:23 Lorazepam 2 Mg/Ml Vial IM 07/17/23 16:24 2 mg ONCE ONE Administration Medical Decision Making Medical Decision Making [facility] Narrative: Patient is a 22 old male presents emergency department with reported cocaine usage this morning and suicidal ideations with a plan to choke himself and feeling unsafe. He became very angry at the time of my initial examination, demanding that he be placed in the Behavioral potted. He became agitated and striking himself in the head, snapped his glasses in half, and began to walk around the emergency department requiring security assistance as he was actively a threat to himself and potentially a threat to others. Patient was unable to be redirected. Patient received Haldol 10 mg IM and lorazepam 2 mg IM for behavioral restraint. Differential Diagnosis Differential Diagnoses: The differential diagnosis associated with the presentation includes ( Depression, anxiety, anger, explosive behavior, mood disorder, substance use disorder) Admission/Observation Consideration of admission/observation: Escalation of care including admission/observation considered ( see course narrative for further detail) Lab Data [facility] Lab Attestation statement: I reviewed the patient's lab results. Labs: Lab Results 07/17/23 Range/Units 17:44 Urine Opiates Screen Not Detected (Not Detect) Ur Barbiturates Screen Not Detected (Not Detect) Ur Phencyclidine Scrn Not Detected (Not Detect) Ur Amphetamines Screen Not Detected (Not Detect) U Benzodiazepines Scrn Not Detected (Not Detect) Urine Cocaine Screen Not Detected (Not Detect) U Marijuana (THC) Screen POSITIVE H (Not Detect) Independent Historian Clinical information obtained from an independent historian. History obtained from or confirmed by: EMS External Record Review External record reviewed: Other ( prior psychiatric evaluation) Chronic Conditions Patient?s care impacted by: Other ( psychiatric disorder) Discharge Plan Discharge Clinical Impression: Adjustment disorder Patient Disposition: Home, Self-Care Prescriptions: No Action sennosides [senna] 8.6 mg tablet 8.6 mg PO DAILY propranolol 160 mg capsule,extended release 24 hr 160 mg PO DAILY chlorpromazine 25 mg tablet 25 mg PO TID divalproex 500 mg tablet extended release 24 hr 1,000 mg PO BID docusate sodium 100 mg capsule 100 mg PO BID dextroamphetamine-amphetamine [Adderall XR] 10 mg capsule,extended release 24hr 1 cap PO QAM quetiapine 400 mg tablet 400 mg PO BID melatonin 5 mg Tablet 5 mg PO BEDTIME PRN (Reason: Sleep) guanfacine 4 mg tablet extended release 24 hr 4 mg PO DAILY lidocaine 5 % adhesive patch,medicated 1 patch topical DAILY Qty: 30 0RF Rx Instructions: leave on most painful area for up to 12 hrs Interventions: ED Discharge Assessment Last Done: 07/17/23 20:24 Discharge Date/Time: 07/17/23 20:27
--- NOTE | 2023-07-17 16:47 | PC.NURSE ---
DAYTON Barroso went over to evaluate pt. pt began to choke himself, punch himself in the head, and break his glasses as a result of not getting his way of being sectioned/going to the pod. the pt proceeded to get off stretcher, security came to help out when pt started becoming aggressive towards security. security got pt to the ground and took multiple staff to restrain pt for both staff and pt safety. DAYTON Barroso verbal order for meds stat. pt was medicated per jan, calmed down, and was able to be released from physical restraints. pt brought to room ED21, where he started taunting security asking to go for Round 2 . pt then left ED21 and charged towards security at nurses station where pt had to be restrained again. pt agreed to stop, was released, and brought back to ED21. pt currently sitting quietly on stretcher. curtain open. pt to be changed over to hospital attire momentarily
[2023-07-17] MEDS: diphenhydrAMINE HCL 50 MG/ML VIAL IM (16:58)
[2023-07-17 18:00] VITALS: BP 125/69; PULSE 93; RESP 16; O2SAT 96
[2023-07-17 18:08] LABS: Amphetamine Screen Urine Not Detected (Not Detect); Barbiturates, Urine Not Detected (Not Detect); Benzodiazepines Screen Urine Not Detected (Not Detect); Cannabinoid Screen Urine POSITIVE (Not Detect); Cocaine Screen Urine Not Detected (Not Detect); Opiate Screen Urine Not Detected (Not Detect); Phencyclidine Screen Urine Not Detected (Not Detect)
--- NOTE | 2023-07-17 19:09 | PC.NURSE ---
pt calm and cooperative, waiting to be brought over to pod per Anwer. report given to LUC Lange
--- NOTE | 2023-07-17 19:28 | PC.NURSE ---
Pt ca&ox3, no signs of distress. Pt denies chest pain and sob. Pt requesting to go to the pod. Plan of care ongoing.
--- NOTE | 2023-07-17 19:31 | PC.NURSE ---
Per provider pt is cleared to go back to grp home.
--- NOTE | 2023-07-17 19:33 | PC.NURSE ---
This RN spoke with Willam @ [phone] which [facility] Per Willam, would like pt transported via ambulance due to no transportation at this time and [facility] staff feeling unsafe with pt in car.
--- NOTE | 2023-07-17 19:38 | PC.NURSE ---
This RN spoke with guide delegate regarding transportation. Pt will be transported to [facility] via ambulance, mental health case manager Willam aware and stated that [facility] staff will be there to meet the ambulance and pt on arrival.
--- NOTE | 2023-07-17 19:54 | PC.NURSE ---
Provider made aware pt can no longer go to the pod per deandra. [facility] working with this RN to get ambulance for transport. plan of care ongoing.
[2023-07-19 07:37] LABS: Fentanyl, urine Not Detected (Not Detect)
== END 2023-07-17 20:27 | disposition home or self-care (01) ==
PROVIDERS: Nurse Practitioner Family; Emergency Provider Internal Medicine
DX: R45.851 Suicidal ideations (principal); F14.10 Cocaine abuse, uncomplicated; F43.20 Adjustment disorder, unspecified; Z87.891 Personal history of nicotine dependence; Z79.899 Other long term (current) drug therapy
CPT/HCPCS: 80307; 99284; J1200; J2060

== ENCOUNTER 2023-07-22 13:57 | Emergency (ER) | payer MEDICAID, SELFPAY ==
--- NOTE | ~2023-07-22 | US_ITS ---
EXAMINATION: US SCROTUM CLINICAL INFORMATION: Left-sided swelling and pain. COMPARISON: None available. TECHNIQUE: A sonogram of the scrotum was performed assessing stauffer-scale appearance and color Doppler flow. Spectral Doppler analysis of the arterial and venous flow were performed in the testes bilaterally. FINDINGS: RIGHT: Right testicle measures 1.8 x 1.3 x 1.3 cm, volume 1.7 mL. No focal testicular parenchymal lesions are visualized. Spectral Doppler analysis of the arterial and venous flow is normal in the right testis. Right epididymal head is normal in size. No right hydrocele or varicocele is seen. Right epididymal Doppler flow is normal. LEFT: Left testicle measures 2.6 x 1.1 x 1.5 cm, volume 2.2 mL. Single punctate calcification in the left testicle. No other focal testicular parenchymal lesions are visualized. Spectral Doppler analysis of the arterial and venous flow is normal in the left testis. Left epididymal head is normal in size. No left hydrocele or varicocele is seen. Left epididymal Doppler flow is increased. US/US scrotum doppler IMPRESSION: Small testicles. Hypervascular left epididymis questionable for epididymitis.
--- NOTE | ~2023-07-22 | US_ITS ---
EXAMINATION: US SCROTUM CLINICAL INFORMATION: Left-sided swelling and pain. COMPARISON: None available. TECHNIQUE: A sonogram of the scrotum was performed assessing stauffer-scale appearance and color Doppler flow. Spectral Doppler analysis of the arterial and venous flow were performed in the testes bilaterally. FINDINGS: RIGHT: Right testicle measures 1.8 x 1.3 x 1.3 cm, volume 1.7 mL. No focal testicular parenchymal lesions are visualized. Spectral Doppler analysis of the arterial and venous flow is normal in the right testis. Right epididymal head is normal in size. No right hydrocele or varicocele is seen. Right epididymal Doppler flow is normal. LEFT: Left testicle measures 2.6 x 1.1 x 1.5 cm, volume 2.2 mL. Single punctate calcification in the left testicle. No other focal testicular parenchymal lesions are visualized. Spectral Doppler analysis of the arterial and venous flow is normal in the left testis. Left epididymal head is normal in size. No left hydrocele or varicocele is seen. Left epididymal Doppler flow is increased. US/US scrotum IMPRESSION: Small testicles. Hypervascular left epididymis questionable for epididymitis.
--- NOTE | 2023-07-22 14:14 | ED_ITS ---
HPI - Psych General Chief Complaint: Urogenital-Male Stated Complaint: Stomach Pain Etc Time Seen by Provider: 07/22/23 16:16 Source: patient and old records reviewed Mode of arrival: ambulatory Limitations: no limitations History of Present Illness HPI Narrative: denies SI states he lied to come back quicker - c/o mild diarrhea in LLQ for one day and some mild pain but his left testicle hurts he has no sexual activity he denies this to me. MD complaint: other (abdominal pain and testicular pain) Onset (ago): day(s) (1) Duration: intermittent History of same: No Relieving factors: none Exacerbating factors: other (touching area) Context: other (denies) Associated psychiatric symptoms: none Associated symptoms: denies other symptoms Treatments prior to arrival: none Related Data Home Medications Medication Instructions Recorded Confirmed chlorpromazine 25 mg tablet 25 mg PO TID 06/27/23 07/13/23 dextroamphetamine-amphetamine ER 1 cap PO QAM 06/27/23 07/13/23 10 mg 24hr capsule,extend release (Adderall XR) divalproex 500 mg tablet,extended 1,000 mg PO BID 06/27/23 07/13/23 release 24 hr docusate sodium 100 mg capsule 100 mg PO BID 06/27/23 07/13/23 guanfacine 4 mg tablet,extended 4 mg PO DAILY 06/27/23 07/13/23 release 24 hr melatonin 5 mg tablet 5 mg PO BEDTIME PRN Sleep 06/27/23 07/13/23 propranolol 160 mg capsule,24 160 mg PO DAILY 06/27/23 07/13/23 hr,extended release quetiapine 400 mg tablet 400 mg PO BID 06/27/23 07/13/23 sennosides 8.6 mg tablet (senna) 8.6 mg PO DAILY 06/27/23 07/13/23 Previous Rx's Medication Instructions Recorded lidocaine 5 % topical patch 1 patch topical DAILY #30 ea 07/09/23 doxycycline hyclate 100 mg tablet 100 mg PO BID 7 days #14 tabs 07/22/23 Allergies Allergy/AdvReac Type Severity Reaction Status Date / Time methylphenidate Allergy Unknown UNKNOWN Verified 07/22/23 14:17 [From RITALIN] shrimp [SHRIMP] Allergy Unknown HIVES Verified 07/22/23 14:17 haloperidol [From Haldol] Allergy Involuntary Verified 07/22/23 14:17 Spasms lactose Allergy Diarrhea Verified 07/22/23 14:17 Review of Systems Review of Systems: Constitutional : No Weight loss, No Fever, No Chills ENT/Mouth : No sore throat, No Rhinorrhea Eyes: No Swelling, No Redness Cardiovascular : No Chest Pain, No SOB, NoEdema Respiratory : No Cough, No Sputum, No Wheezing Gastrointestinal : no Nausea, no Vomiting, positive Diarrhea, positive abdominal Pain, No Hematochezia, No Melena Genitourinary : No Dysuria, No Urinary Frequency, No Hematuria, No Urgency , pos testicular pain Musculoskeletal : No joint pain, No Myalgias, No Joint Swelling Skin : No Skin Lesions, No rash Neuro : No Weakness, No Numbness, No Dizziness, No Headache Psych : No Anxiety/Panic, No Depression Heme/Lymph: No Bruising, No Lymphadenopathy Endocrine : No Polyuria, No Polydipsia All other systems reviewed and are negative. [facility], [facility] Past Medical History Attestation statement: The following information was validated with the patient. Medical History Adjustment disorder Chronic abdominal pain Developmental disability Dyspnea Intellectual developmental disorder, severe Seborrheic dermatitis Seizures XXYY syndrome Surgical History History of testicular surgery Family History Family History Father No problems noted. Mother Hypertension Diabetes Other History of brain cancer Social History Social History Household Members: Other Household Members Other:: residential Housing: Other Do you presently have visiting nurse or other home services: No Alcohol intake: never Patient Tobacco Use Status: Never used Tobacco Tobacco use type: Cigarette Years Smoked: 16 years old e-Cigarette/Vaping Use: Never Used Second Hand Smoke Exposure: No Substance Use Type: Crack/Cocaine and Marijuana Advance Directives: No Advance Directives Information Provided: No service: No Current occupational status: disabled Cognitive needs: Yes Hearing needs: No Vision needs: No Physical Exam Vital Signs: Vital Signs: Last Vital Signs Temp 97.5 F 07/22/23 14:17 Pulse 88 07/22/23 14:17 Resp 16 07/22/23 14:17 BP 120/85 07/22/23 14:17 Pulse Ox 96 07/22/23 14:17 O2 Del Method Room Air 07/22/23 14:17 BMI result Body Mass Index 48.0 Appearance: Alert. Oriented X3. No acute distress. Eyes: Pupils equal, round and reactive to light. ENT: Pharynx normal. Neck: Normal inspection. Neck supple. CVS: Normal heart rate and rhythm. Pulses normal. Respiratory: No respiratory distress. Breath sounds normal. Abdomen: Soft and mild ttp in LLQ. : deferred due to patient comfort Skin: Skin warm and dry. Normal skin color. Normal skin turgor. Extremities: No lower extremity edema. Neuro: Oriented X 3. No motor deficit. No sensory deficit. Course Course Course Narrative: This is a rapid medical exam: Additional HPI, ROS, PE not included below will be deferred to primary provider. Patient is a 22-year-old male presenting to the emergency department from a residential with report of abdominal pain radiating to back since yesterday as well as left testicular swelling for one week. No residential staff present with patient. Denies any difficulty urinating or with bowel movements. Reports decreased appetite. Denies fever. Reports left testicle is huge, area not visualized in triage due to privacy concerns. States is not sexually active. Abdomen is soft and nontender, no CVA tenderness. Plan: UA, labs, U/S 15:57 Notified by patient advocate that patient is now reporting thoughts of self harm in the waiting room. Nursing notified. Reevaluation(s) Reevaluation #1: will dose with ceftriaxone and doxy Medical Decision Making Medical Decision Making [facility] Narrative: 22 yo male well known to us for mental health issues here with LLQ pain and testicular pain - no signs of torsion on US will need basic labs and urine suspect possible infection vs diverticulitis either way would anticipate treatment with augmentin if normal US - at his age he would qualify for ceftriax one and doxy which would be safer treatment given his psychiatric medications vs quinolone. No hernia felt on exam. Differential Diagnosis Differential Diagnoses: The differential diagnosis associated with the presentation includes diverticulitis, malingering, testicular infection Admission/Observation Consideration of admission/observation: Escalation of care including admission/observation considered denies SI - states he lied does not need obsevation for CARE team Lab Data MDM Lab Attestation statement: I reviewed the patient's lab results. LFTs at baseline 07/22/23 17:10 07/22/23 17:09 Labs: Lab Results 07/22/23 07/22/23 07/22/23 Range/Units 16:35 17:09 17:10 WBC 8.2 (4.8-10.8) X10*3/uL RBC 4.95 (4.60-5.80) X10*6/uL Hgb 13.7 L (14.0-18.0) g/dl Hct 43.0 (42.0-52.0) % MCV 86.9 (80.0-98.0) fL MCH 27.7 (27.0-33.0) pg MCHC 31.9 (31.0-36.0) g/dl RDW 13.8 (11.0-16.0) % Plt Count 239 (160-400) X10*3/uL MPV 10.0 (9.4-12.4) fL Immature Gran % (Auto) 0.2 (0.0-0.4) % Neut % (Auto) 47.0 (45-73) % Lymph % (Auto) 39.0 (20-40) % [place] % (Auto) 8.1 (2-11) % Eos % (Auto) 5.2 H (0-4) % Baso % (Auto) 0.5 (0-2) % Lymph # (Auto) 3.2 (1.2-4.9) X10*3/uL [place] # (Auto) 0.7 (0.1-1.2) X10*3/uL Eos # (Auto) 0.4 (0.0-0.4) X10*3/uL Baso # (Auto) 0.0 (0.0-0.2) X10*3/uL Abs Immat Gran (auto) 0.02 (0.00-0.03) X10*3/uL Absolute Neuts (auto) 3.9 (2.0-8.3) x10*3/uL Absolute Nucleated RBC 0.000 (0.0-0.012) X10*3/uL Nucleated RBC % (auto) 0.0 (0.0-0.2) /100WBC Sodium 140 (135-145) mmol/L Potassium 4.2 (3.3-5.1) mmol/L Chloride 110 H (96-108) mmol/L Carbon Dioxide 23 (22-29) mmol/L Anion Gap 11 L (12-20) BUN 9 (9-16) mg/dL Creatinine 0.83 (0.5-1.4) mg/dL Estim Creat Clear Calc 246.2 Estimated GFR > 60 Random Glucose 90 (60-115) mg/dL Calcium 9.6 (8.4-10.2) mg/dL Total Bilirubin 0.4 (0.0-1.0) mg/dL AST 72 H (5-37) U/L ALT 84 H (0-40) U/L Alkaline Phosphatase 120 H (39-117) U/L Total Protein 7.8 (6.5-8.0) g/dL Albumin 3.6 (3.5-5.0) g/dL Urine Color Dark Yellow Urine Appearance Clear Urine pH 6.0 (5.0-9.0) Ur Specific Hopkins >= 1.030 H (1.005-1.025) Urine Protein 30 (1+) H (Neg-Trace) mg/dL Urine Glucose (UA) Negative (Negative) mg/dL Urine Ketones Trace (Negative) mg/dL Urine Blood Negative (Negative) Urine Nitrite Negative (Negative) Ur Leukocyte Esterase Trace H (Negative) Urine RBC 3-5 H (0-2) /HPF Urine WBC 0-5 (0-5) /HPF Ur Squamous Epith Cells 0-2 (0-2) /HPF Urine Bacteria None Seen (None Seen) Hyaline Casts 0-2 (0-2) /LPF Independent Interpretation I performed an independent interpretation of an: Ultrasound (normal flow no torsion) Radiology Impression Discussion of test interpretation with radiology: I have reviewed the radiolog ist's reading. Independent Historian Clinical information obtained from an independent historian. History obtained from or confirmed by: Other External Record Review External record reviewed: Inpatient record Prescription Management I considered prescription management with: Antibiotic Discharge Plan Discharge Clinical Impression: Epididymitis Abdominal pain Qualifiers: Abdominal location: left lower quadrant Qualified Code(s): R10.32 - Left lower quadrant pain Patient Disposition: Home, Self-Care Instructions: Epididymitis (ED), Acute Abdominal Pain (ED) Additional Instructions: take a probiotic while on doxycycline. you should avoid the sun while on doxycylcine it can cause sunburns. take with a full meal and glass of water. return for fevers, worsening pain, diarrhea more than 6 stools a day, inability to eat or drink or any other concerns. Prescriptions: New doxycycline hyclate 100 mg tablet 100 mg PO BID 7 Days Qty: 14 0RF No Action sennosides [senna] 8.6 mg tablet 8.6 mg PO DAILY propranolol 160 mg capsule,extended release 24 hr 160 mg PO DAILY chlorpromazine 25 mg tablet 25 mg PO TID divalproex 500 mg tablet extended release 24 hr 1,000 mg PO BID docusate sodium 100 mg capsule 100 mg PO BID dextroamphetamine-amphetamine [Adderall XR] 10 mg capsule,extended release 24hr 1 cap PO QAM quetiapine 400 mg tablet 400 mg PO BID melatonin 5 mg Tablet 5 mg PO BEDTIME PRN (Reason: Sleep) guanfacine 4 mg tablet extended release 24 hr 4 mg PO DAILY lidocaine 5 % adhesive patch,medicated 1 patch topical DAILY Qty: 30 0RF Rx Instructions: leave on most painful area for up to 12 hrs
[2023-07-22 14:17] VITALS: BP 120/85; PULSE 88; RESP 16; TEMP 36.4; O2SAT 96; BMI 48.0
[2023-07-22 16:54] LABS: Appearance Urine Clear; Color Urine Dark Yellow; Glucose Urine UA Negative (Negative); Leukocyte Esterase Urine Trace (Negative); Nitrite Urine Negative (Negative); Specific Gravity - Urine >= 1.030 (1.005-1.025); UMIC TRIGGER UACC YES; Urine Blood Negative (Negative); Urine Ketones Trace mg/dL (Negative); Urine Protein 30 (1+) mg/dL (Neg-Trace)
[2023-07-22 16:57] LABS: Bacteria Urine None Seen (None Seen); Hyaline Casts Urine 0-2 /LPF (0-2); Squamous Epithelial Cell Urine 0-2 /HPF (0-2); WBC Urine 0-5 /HPF (0-5)
[2023-07-22 17:14] LABS: Basophils Percent Auto 0.5 % (0-2); Eosinophils Absolute Auto 0.4 X10*3/uL (0.0-0.4); Eosinophils Percent Auto 5.2 % (0-4); Hemoglobin 13.7 g/dl (14.0-18.0); Imm Gran Abs Auto 0.02 X10*3/uL (0.00-0.03); Imm Gran Pct Auto 0.2 % (0.0-0.4); Lymphocytes Absolute Auto 3.2 X10*3/uL (1.2-4.9); MANUAL DIFF FLAG NO; Mean Corpuscular HGB Conc 31.9 g/dl (31.0-36.0); Mean Corpuscular Hemoglobin 27.7 pg (27.0-33.0); Mean Corpuscular Volume 86.9 fL (80.0-98.0); Monocytes Absolute Auto 0.7 X10*3/uL (0.1-1.2); Monocytes Percent Auto 8.1 % (2-11); Neutrophils Absolute Auto 3.9 x10*3/uL (2.0-8.3); Platelet Count 239 X10*3/uL (160-400); Red Blood Count 4.95 X10*6/uL (4.60-5.80); Red Cell Distribution Width 13.8 % (11.0-16.0); White Blood Count 8.2 X10*3/uL (4.8-10.8)
[2023-07-22 17:42] LABS: Alkaline Phosphatase 120 U/L (39-117); Total Protein 7.8 g/dL (6.5-8.0)
[2023-07-22 17:43] LABS: Albumin Level 3.6 g/dL (3.5-5.0); Anion Gap 11 (12-20); Aspartate Amino Transferase 72 U/L (5-37); Bilirubin Total 0.4 mg/dL (0.0-1.0); Blood Urea Nitrogen 9 mg/dL (9-16); Calcium 9.6 mg/dL (8.4-10.2); Carbon Dioxide 23 mmol/L (22-29); Chloride 110 mmol/L (96-108); Creatinine Clr Calc Pharmacy 246.2; Estimated Glomerular Filt Rate > 60; Glucose Random 90 mg/dL (60-115); Potassium 4.2 mmol/L (3.3-5.1); Sodium 140 mmol/L (135-145)
[2023-07-22 17:59] LABS: Alanine Aminotransferase 84 U/L (0-40)
[2023-07-22] MEDS: cefTRIAXone sodium 500 MG, Lidocaine HCl 1 % MPF 1 ML IM (18:10)
[2023-07-22] MEDS: Doxycycline Monohydrate 100 MG CAPSULE PO (18:10)
== END 2023-07-22 18:19 | disposition home or self-care (01) ==
PROVIDERS: Registered Nurse Emergency; Emergency Provider Emergency Medicine
DX: N45.1 Epididymitis (principal); R10.13 Epigastric pain; R10.32 Left lower quadrant pain; R10.2 Pelvic and perineal pain; Z79.899 Other long term (current) drug therapy
CPT/HCPCS: 36415; 76870; 80053; 81001; 85025; 93975; 96372; 99284; J0696

== ENCOUNTER 2023-07-23 20:08 | Emergency (ER) | payer MEDICAID, SELFPAY ==
--- NOTE | ~2023-07-23 | XR_ITS ---
X-RAY RIGHT ANKLE X-RAY RIGHT FOOT CLINICAL HISTORY: Fall, pain. COMPARISON: No relevant prior studies are available for comparison. TECHNIQUE: 2 views of the right ankle and 2 views of the right foot. FINDINGS: Right ankle: No acute fractures or subluxation. No significant soft tissue abnormality. None suspected radiopaque foreign bodies. Right foot: No acute fractures or subluxation. No significant soft tissue abnormality. No unexpected radiopaque foreign bodies. XR/XR ankle RT 2V IMPRESSION: No significant radiographic abnormality of the right ankle nor right foot.
--- NOTE | ~2023-07-23 | XR_ITS ---
X-RAY RIGHT ANKLE X-RAY RIGHT FOOT CLINICAL HISTORY: Fall, pain. COMPARISON: No relevant prior studies are available for comparison. TECHNIQUE: 2 views of the right ankle and 2 views of the right foot. FINDINGS: Right ankle: No acute fractures or subluxation. No significant soft tissue abnormality. None suspected radiopaque foreign bodies. Right foot: No acute fractures or subluxation. No significant soft tissue abnormality. No unexpected radiopaque foreign bodies. XR/XR foot RT 2V IMPRESSION: No significant radiographic abnormality of the right ankle nor right foot.
--- NOTE | 2023-07-23 20:18 | ED.FALL ---
HPI - Fall General Chief Complaint: Extremity Injury, Lower Stated Complaint: TWISTED ANKLE Time Seen by Provider: 07/23/23 20:15 Source: patient and EMS Mode of arrival: EMS Limitations: no limitations History of Present Illness HPI Narrative: 22 yo male w/ history of XXYY syndrome, adjustment disorder, intermittent explosive disorder and developmental disability?who presents to the ER with complaints of right foot and ankle pain after he tripped on a curve with an inversion injury of the right ankle. No additional injury. No head strike or loss of consciousness. No associated weakness, numbness or tingling of the extremities Related Data Home Medications Medication Instructions Recorded Confirmed chlorpromazine 25 mg tablet 25 mg PO TID 06/27/23 07/13/23 dextroamphetamine-amphetamine ER 1 cap PO QAM 06/27/23 07/13/23 10 mg 24hr capsule,extend release (Adderall XR) divalproex 500 mg tablet,extended 1,000 mg PO BID 06/27/23 07/13/23 release 24 hr docusate sodium 100 mg capsule 100 mg PO BID 06/27/23 07/13/23 guanfacine 4 mg tablet,extended 4 mg PO DAILY 06/27/23 07/13/23 release 24 hr melatonin 5 mg tablet 5 mg PO BEDTIME PRN Sleep 06/27/23 07/13/23 propranolol 160 mg capsule,24 160 mg PO DAILY 06/27/23 07/13/23 hr,extended release quetiapine 400 mg tablet 400 mg PO BID 06/27/23 07/13/23 sennosides 8.6 mg tablet (senna) 8.6 mg PO DAILY 06/27/23 07/13/23 Previous Rx's Medication Instructions Recorded lidocaine 5 % topical patch 1 patch topical DAILY #30 ea 07/09/23 doxycycline hyclate 100 mg tablet 100 mg PO BID 7 days #14 tabs 07/22/23 Allergies Allergy/AdvReac Type Severity Reaction Status Date / Time methylphenidate Allergy Unknown UNKNOWN Verified 07/22/23 14:17 [From RITALIN] shrimp [SHRIMP] Allergy Unknown HIVES Verified 07/22/23 14:17 haloperidol [From Haldol] Allergy Involuntary Verified 07/22/23 14:17 Spasms lactose Allergy Diarrhea Verified 07/22/23 14:17 Review of Systems Review of Systems: Yes all other systems are reviewed and are negative Constitutional: Constitutional: Reports no additional constitutional complaints, Denies body ache(s), Denies chills, Denies fever(s), Denies headache(s) and Denies weakness Eyes: Eyes: Reports no additional eye complaints and Denies change in vision ENT: Reports system reviewed and no additional complaints, except as documented, Denies dizziness, Denies headache(s), Denies nasal congestion, Denies nasal discharge and Denies neck pain Cardiovascular: Cardiovascular: Reports no additional cardiovascular complaints, Denies chest pain, Denies leg edema and Denies dyspnea Respiratory: Respiratory: Reports no additional respiratory complaints, Denies cough and Denies dyspnea Gastrointestinal: Gastrointestinal: Reports no additional gastrointestinal complaints, Denies abdominal pain, Denies diarrhea, Denies nausea and Denies vomiting Genitourinary: Genitourinary: Denies urinary incontinence Musculoskeletal: Musculoskeletal: Reports no additional musculoskeletal complaints, Denies back pain, Reports arthralgias, Reports joint swelling, Denies neck pain, Denies numbness and Denies tingling Integumentary/Breasts: Skin/Breast: Reports system reviewed and no additional complaints, except as docu and Denies rash Neurologic: Reports system reviewed and no additional complaints, except as documented, Denies Abnormal speech present, Denies dizziness, Denies headache(s), Denies numbness, Denies tingling and Denies weakness PMFSH Past Medical History Attestation statement: The following information was validated with the patient. Source: old records reviewed and nursing notes reviewed Medical History Adjustment disorder Chronic abdominal pain Developmental disability Dyspnea Intellectual developmental disorder, severe Seborrheic dermatitis Seizures XXYY syndrome Surgical History History of testicular surgery Family History Family History Father No problems noted. Mother Hypertension Diabetes Other History of brain cancer Social History Social History Household Members: Other Household Members Other:: snf Housing: Other Do you presently have visiting nurse or other home services: No Alcohol intake: never Patient Tobacco Use Status: Never used Tobacco Tobacco use type: Cigarette Years Smoked: 16 years old Smoked in Last 30 Days: Yes e-Cigarette/Vaping Use: Never Used Second Hand Smoke Exposure: No Use of substances other than those prescribed or required for medical reasons: Yes Substance Use Type: Marijuana Advance Directives: No Advance Directives Information Provided: Yes service: No Current occupational status: disabled Cognitive needs: Yes Hearing needs: No Vision needs: No Physical Exam Vital Signs: Vital Signs: Last Vital Signs Temp 98.4 F 07/23/23 20:25 Pulse 83 07/23/23 20:25 Resp 18 07/23/23 20:25 BP 104/52 L 07/23/23 20:25 Pulse Ox 95 07/23/23 20:25 O2 Del Method Room Air 07/23/23 20:25 BMI result Body Mass Index 28.5 Const: General: cooperative, healthy appearing, comfortable and no acute distress Orientation/consciousness: patient oriented x3 Limitations: no limitations HEENT: Head: Yes normal to inspection Ears: hearing grossly normal bilaterally General nose exam: Normal external nose present Face and sinus: Yes normal facial exam Mouth: Normal oral and palatal mucosa present Throat: Yes posterior oropharynx normal Eyes: General: appearance normal, both eyes and all related structures Pupils: Equal, round and reactive pupils present Neck: Neck: Yes normal visual inspection Chest: Chest palpation & inspection: normal inspection of the chest Resp: Effort & Inspection: normal respiratory effort Auscultation: clear to auscultation bilaterally Cardio: Rate: regular rate Rhythm: regular rhythm Peripheral pulses: Peripheral pulses 2+ throughout GI: Inspection: Yes normal to inspection Palpation (GI): Soft to palpation and nontender Auscultation: normal bowel sounds Back/Spine/Pelvis: Thoracic/Lumbar Spine: thoracic and lumbar spine normal to inspection Skin: General skin exam: no rashes or lesions noted Neuro: General: patient oriented x3, no focal motor deficits and normal sensation to monofilament Cranial nerves: Yes Equal, round and reactive pupils present Cognition (Neuro): normal cognition Speech: No Abnormal speech present Gait exam (Neuro): Normal gait present Motor exam (neuro): 5/5 motor strength present throughout Extrem: Other: There is TTP to the right lateral and medial ankle and the base of the 5th mcp. Full range of motion ankle and foot with no ligamental laxity. Normal DP and PT pulses. Normal sensation. No posterior ankle pain. Negative Cook time. General: Yes normal to inspection Course Course Course Narrative: X-ray shows no evidence of acute fracture dislocation. Likely sprain. Reviewed rice. Reviewed worrisome signs and symptoms of when to return to the emergency room. Comfortable plan for discharge home. Nursing did confirm with the bilingual patient support caseworker of the snf that the patient is okay to return with an Blaze wrap for his ankle sprain Medications Administered Discontinued Medications Generic Name Dose Route Start Last Admin Trade Name Jayant PRN Reason Stop Dose Admin Ibuprofen 600 mg 07/23/23 20:16 07/23/23 20:31 Ibuprofen 600 Mg Tablet PO 07/23/23 20:17 600 mg ONCE ONE Administration Medical Decision Making Medical Decision Making [facility] Narrative: 22-year-old male here with right ankle pain after an inversion injury which occurred just prior to arrival. Patient tenderness over either foot and ankle. Will check x-rays. CMS intact distally. Will give NSAID for pain control Differential Diagnosis Differential Diagnoses: The differential diagnosis associated with the presentation includes Likely sprain Low concern for fracture or dislocation Independent Interpretation I performed an independent interpretation of an: Plain X-Ray Interpretation: I independently reviewed the x-ray and agree with the radiologist's report Radiology Impression Discussion of test interpretation with radiology: I have reviewed the radiologist's reading. Radiologist Impression: [place] [id number] XRay Report Signed Patient: German Casillas MR#: [id number] : 2000 Acct:[id number] Age/Sex: 22 / M ADM Date: 07/23/23 Loc: .ED Attending Dr: Ordering Physician: Radha Jin NP Date of Service: 07/23/23 Procedure(s): XR ankle RT 2V Accession Number(s): [id number] cc: Radha Jin NP~ X-RAY RIGHT ANKLE X-RAY RIGHT FOOT CLINICAL HISTORY: Fall, pain. COMPARISON:? No relevant prior studies are available for comparison. TECHNIQUE: 2 views of the right ankle and 2 views of the right foot. FINDINGS:? Right ankle: No acute fractures or subluxation. No significant soft tissue abnormality. None suspected radiopaque foreign bodies. Right foot: No acute fractures or subluxation. No significant soft tissue abnormality. No unexpected radiopaque foreign bodies. XR/XR ankle RT 2V IMPRESSION: No significant radiographic abnormality of the right ankle nor right foot. Independent Historian Clinical information obtained from an independent historian. History obtained from or confirmed by: EMS Discharge Plan Discharge Clinical Impression: Ankle sprain and strain Patient Disposition: Home, Self-Care Instructions: Ankle Sprain (ED) Additional Instructions: Apply ice to the affected area Gentle stretching Elevation Take Motrin or Tylenol for pain as needed Prescriptions: No Action sennosides [senna] 8.6 mg tablet 8.6 mg PO DAILY propranolol 160 mg capsule,extended release 24 hr 160 mg PO DAILY chlorpromazine 25 mg tablet 25 mg PO TID divalproex 500 mg tablet extended release 24 hr 1,000 mg PO BID docusate sodium 100 mg capsule 100 mg PO BID dextroamphetamine-amphetamine [Adderall XR] 10 mg capsule,extended release 24hr 1 cap PO QAM quetiapine 400 mg tablet 400 mg PO BID melatonin 5 mg Tablet 5 mg PO BEDTIME PRN (Reason: Sleep) guanfacine 4 mg tablet extended release 24 hr 4 mg PO DAILY lidocaine 5 % adhesive patch,medicated 1 patch topical DAILY Qty: 30 0RF Rx Instructions: leave on most painful area for up to 12 hrs doxycycline hyclate 100 mg tablet 100 mg PO BID 7 Days Qty: 14 0RF Referrals: Physician,Filippo J [Primary Care Provider] - 1 week Interventions: ED Discharge Assessment Last Done: 07/23/23 21:12 Discharge Date/Time: 07/23/23 21:41
[2023-07-23 20:19] VITALS: BP 104/52; BP 130/87; PULSE 80; PULSE 83; RESP 18; TEMP 36.9; O2SAT 95; O2SAT 97; BMI 28.5
[2023-07-23 20:25] VITALS: BP 104/52; PULSE 83; RESP 18; TEMP 36.9; O2SAT 95
--- NOTE | 2023-07-23 20:26 | PC.NURSE ---
Pt ca&ox4, no signs of distress. Pt calm and cooperative. Pt reports 10/10 right ankle pain. Plan of care ongoing.
[2023-07-23] MEDS: Ibuprofen 600 MG TABLET PO (20:31)
--- NOTE | 2023-07-23 20:36 | PC.NURSE ---
Pt medicated per jan. Plan of care ongoing.
--- NOTE | 2023-07-23 21:02 | PC.NURSE ---
Per Willam at [phone] telephonic case manager @ [facility] ok with pt returning to [facility] with nelida bandage. Willam requesting pt be transported back to [facility] via ambulance due to no one at [facility] able to transport pt back. This RN will call Willam back once pt is d/c. Provider Radha Franco made aware that per willam pt able to return to [facility] with nelida bandage. plan of care ongoing.
--- NOTE | 2023-07-23 21:10 | PC.NURSE ---
This RN spoke with Willam at [facility] [phone] regarding pt being d/c and transported back to [facility] via ambulance. Per willam either himself, Reji, or Ten will be there to meet the ambulance.
--- NOTE | 2023-07-23 21:37 | PC.NURSE ---
Blaze bandage placed on pts right ankle. pt confirmed comfort and blaze bandage not too tight.
== END 2023-07-23 21:41 | disposition home or self-care (01) ==
PROVIDERS: Emergency Provider Emergency Medicine
DX: S93.401A Sprain of unspecified ligament of right ankle, initial encounter (principal); S96.911A Strain of unspecified muscle and tendon at ankle and foot level, right foot, initial encounter; W10.1XXA Fall (on)(from) sidewalk curb, initial encounter; Y93.01 Activity, walking, marching and hiking; Y92.480 Sidewalk as the place of occurrence of the external cause; Y99.9 Unspecified external cause status
CPT/HCPCS: 73600; 73620; 99283; 99284

== ENCOUNTER 2023-07-25 16:49 | Emergency (ER) | payer OTHER, MEDICAID, SELFPAY ==
[2023-07-25 16:54] VITALS: BP 133/81; PULSE 90; RESP 18; TEMP 36.8; O2SAT 99; BMI 29.6
--- NOTE | 2023-07-25 17:06 | PC.NURSE ---
pt becoming aggressive with staff upon arrival attempting to grab cords to try and hurt himself. refusing to interchange agent. security on stand by.
--- NOTE | 2023-07-25 17:10 | ED_ITS ---
HPI - Psych General Chief Complaint: Psychiatric Symptoms Stated Complaint: Crisis w/ SI Time Seen by Provider: 07/25/23 16:57 Source: patient and EMS Mode of arrival: EMS Limitations: no limitations History of Present Illness HPI Narrative: Patient is 22-year-old male presented to the emergency department by EMS from his [facility] with report of suicidal ideation either by stabbing himself or overdose, patient feels stressed out at the f[facility], today decline any SI or HI, patient is insisting to be placed in the behavior pod. Patient declined headache, dizziness, CP, SOB, abdominal pain, nausea, vomiting, declined using any substance today. No visual or auditory hallucination. Related Data Home Medications Medication Instructions Recorded Confirmed chlorpromazine 25 mg tablet 25 mg PO TID 06/27/23 07/25/23 divalproex 500 mg tablet,extended 1,000 mg PO BID 06/27/23 07/25/23 release 24 hr docusate sodium 100 mg capsule 100 mg PO BID 06/27/23 07/25/23 guanfacine 4 mg tablet,extended 4 mg PO DAILY 06/27/23 07/25/23 release 24 hr melatonin 5 mg tablet 5 mg PO BEDTIME PRN Sleep 06/27/23 07/25/23 propranolol 160 mg capsule,24 160 mg PO DAILY 06/27/23 07/25/23 hr,extended release quetiapine 400 mg tablet 400 mg PO BID 06/27/23 07/25/23 sennosides 8.6 mg tablet (senna) 8.6 mg PO DAILY 06/27/23 07/25/23 Previous Rx's Medication Instructions Recorded lidocaine 5 % topical patch 1 patch topical DAILY #30 ea 07/09/23 doxycycline hyclate 100 mg tablet 100 mg PO BID 7 days #14 tabs 07/22/23 Allergies Allergy/AdvReac Type Severity Reaction Status Date / Time methylphenidate Allergy Unknown UNKNOWN Verified 07/22/23 14:17 [From RITALIN] shrimp [SHRIMP] Allergy Unknown HIVES Verified 07/22/23 14:17 haloperidol [From Haldol] Allergy Involuntary Verified 07/22/23 14:17 Spasms lactose Allergy Diarrhea Verified 07/22/23 14:17 Review of Systems Review of Systems: All other systems are reviewed and are negative Constitutional: Reports as per HPI and Reports no additional constitutional complaints Eyes: Reports as per HPI and Reports no additional eye complaints Reports system reviewed and no additional complaints, except as documented Cardiovascular: Reports as per HPI and Reports no additional cardiovascular complaints Respiratory: Reports as per HPI and Reports no additional respiratory complaints Gastrointestinal: Reports as per HPI and Reports no additional gastrointestinal complaints Genitourinary: Reports no additional female genitourinary complaints Musculoskeletal: Reports no additional musculoskeletal complaints Skin/Breast: Reports system reviewed and no additional complaints, except as docu Psychiatric: Reports no additional psychiatric complaints Endocrine: Reports no additional endocrine complaints Hematologic/Lymphatic: Reports no additional hematologic/lymphatic complaints Allergic/Immunologic: Reports no additional allergic/immunologic complaints Reports system reviewed and no additional complaints, except as documented and Reports Abnormal speech present [facility] Past Medical History Medical History Adjustment disorder Chronic abdominal pain Developmental disability Dyspnea Intellectual developmental disorder, severe Seborrheic dermatitis Seizures XXYY syndrome Surgical History History of testicular surgery Family History Family History Father No problems noted. Mother Hypertension Diabetes Other History of brain cancer Social History Social History Household Members: Other Household Members Other:: fdc Housing: Other Do you presently have visiting nurse or other home services: No Alcohol intake: never Patient Tobacco Use Status: Never used Tobacco Tobacco use type: Cigarette Years Smoked: 16 years old e-Cigarette/Vaping Use: Never Used Second Hand Smoke Exposure: No Substance Use Type: Marijuana Advance Directives: No Advance Directives Information Provided: No service: No Current occupational status: disabled Cognitive needs: Yes Hearing needs: No Vision needs: No Physical Exam Vital Signs: Vital Signs: Last Vital Signs Temp 98.2 F 07/25/23 16:54 Pulse 90 07/25/23 16:54 Resp 18 07/25/23 16:54 BP 133/81 07/25/23 16:54 Pulse Ox 99 07/25/23 16:54 O2 Del Method Room Air 07/25/23 16:54 BMI result Body Mass Index 29.6 Vital signs have been reviewed as appeared to be correct. Blood pressure normal. Heart rate normal. Respiration rate normal. Temperature normal. Oxygen saturation normal. Appearance: Alert. Oriented X3. No acute distress. Head: Normal external exam. Normocephalic. Atraumatic. No Gottlieb signs noted. No raccoon eyes noted Eyes: PERRLA. EOMI. Conjunctiva and sclera normal. Eyelids normal. ENT: TM's Normal. Pharynx normal. Uvula midline. Moist mucous membranes. No trismus noted. No drooling noted. No muffled voice noted. Neck: Normal inspection. Neck supple. FROM. No adenopathy. Thyroid Normal. No meningeal signs. No neck mass noted. CVS: Normal heart rate and rhythm. Heart sound normal. No murmurs noted. Pulses normal throughout. Respiratory: No respiratory distress. Painless inspiration. Breath sounds n ormal. No wheezes/rales/rhonchi noted. Chest nontender. No accessory muscle usage noted or decreased air movement noted. Abdomen: Soft and nontender. Bowel sounds normal in all 4 quadrants. No diste ntion noted. No organomegaly noted. No visible injury noted. Back: No CVA tenderness. Full range of motion noted. Skin: Skin warm and dry. Normal skin color. Normal skin turgor. No rashes/lesions/lacerations noted. Extremities: No lower extremity edema. Extremities exhibit normal range of m otion. Extremities nontender. Neuro: Oriented X 3. Cranial nerve exam: II-XII are grossly intact No motor deficit. No sensory deficit. Reflexes normal. Patient Orientation: Person, Place, Time and Situation, okay hygiene and grooming. Fair eye contact, attentive, no tics or tremors. Level of Consciousness: Awake, Appropriate and Alert Patient Behavior: Appropriate, Guarded, Cooperative and Anxious Mood Description: Constricted, Blunted and Apprehensive Affect Description: Constricted, Blunted and Apprehensive Patient Cognition Impaired: No Ability to Follow Directions: Excellent Speech Pattern: Clear, Appropriate and Spontaneous Speech, nonpressured, spontaneous with regular rate and rhythm, normal volume and prosody. No dysarthria. Memory Description: Intact, Immediate Intact and Short Term Intact Hallucinations: None Delusions: Not Present Thought Process: Intact Thought Content: positive for Intact, positive for Logical, report SI, denies Homicidal Ideation. Depressive Symptoms: Not present. Judgement and Insight: Limited but adequate. Course Course Course Narrative: 22-year-old male with multiple ED visits for behavior disorder and psych evaluation. Await for care team evaluation. Medical Decision Making Differential Diagnosis Differential Diagnoses: The differential diagnosis associated with the presentation includes (Depression, SI, acute psychosis.) Admission/Observation Consideration of admission/observation: Escalation of care including admission/observation considered Lab Data MDM Lab Attestation statement: I reviewed the patient's lab results. 07/25/23 17:53 07/25/23 17:53 Labs: Lab Results 07/25/23 07/25/23 07/25/23 Range/Units 17:53 17:53 17:53 WBC 9.0 (4.8-10.8) X10*3/uL RBC 5.09 (4.60-5.80) X10*6/uL Hgb 14.6 (14.0-18.0) g/dl Hct 44.6 (42.0-52.0) % MCV 87.6 (80.0-98.0) fL MCH 28.7 (27.0-33.0) pg MCHC 32.7 (31.0-36.0) g/dl RDW 13.9 (11.0-16.0) % Plt Count 279 (160-400) X10*3/uL MPV 10.3 (9.4-12.4) fL Immature Gran % (Auto) 0.3 (0.0-0.4) % Neut % (Auto) 43.8 L (45-73) % Lymph % (Auto) 44.0 H (20-40) % [place] % (Auto) 7.2 (2-11) % Eos % (Auto) 4.3 H (0-4) % Baso % (Auto) 0.4 (0-2) % Lymph # (Auto) 4.0 (1.2-4.9) X10*3/uL [place] # (Auto) 0.7 (0.1-1.2) X10*3/uL Eos # (Auto) 0.4 (0.0-0.4) X10*3/uL Baso # (Auto) 0.0 (0.0-0.2) X10*3/uL Abs Immat Gran (auto) 0.03 (0.00-0.03) X10*3/uL Absolute Neuts (auto) 3.9 (2.0-8.3) x10*3/uL Absolute Nucleated RBC 0.000 (0.0-0.012) X10*3/uL Nucleated RBC % (auto) 0.0 (0.0-0.2) /100WBC Sodium 141 (135-145) mmol/L Potassium 3.9 (3.3-5.1) mmol/L Chloride 108 (96-108) mmol/L Carbon Dioxide 24 (22-29) mmol/L Anion Gap 13 (12-20) BUN 10 (9-16) mg/dL Creatinine 0.80 (0.5-1.4) mg/dL Estim Creat Clear Calc 199.0 Estimated GFR > 60 Random Glucose 97 (60-115) mg/dL Calcium 9.7 (8.4-10.2) mg/dL Total Bilirubin 0.6 (0.0-1.0) mg/dL AST 107 H (5-37) U/L ALT 110 H (0-40) U/L Alkaline Phosphatase 126 H (39-117) U/L Total Protein 8.9 H (6.5-8.0) g/dL Albumin 4.1 (3.5-5.0) g/dL Urine Color Urine Appearance Urine pH (5.0-9.0) Ur Specific Newell (1.005-1.025) Urine Protein (Neg-Trace) mg/dL Urine Glucose (UA) (Negative) mg/dL Urine Ketones (Negative) mg/dL Urine Blood (Negative) Urine Nitrite (Negative) Ur Leukocyte Esterase (Negative) Urine RBC (0-2) /HPF Urine WBC (0-5) /HPF Ur Squamous Epith Cells (0-2) /HPF Urine Bacteria (None Seen) Hyaline Casts (0-2) /LPF Salicylates < 5.0 L (15-30) mg/dL Acetaminophen < 17 (<30) mcg/mL Valproic Acid (50.0-100.0) mcg/mL Ethyl Alcohol < 10 mg/dL 07/25/23 07/25/23 Range/Units 17:53 17:53 WBC (4.8-10.8) X10*3/uL RBC (4.60-5.80) X10*6/uL Hgb (14.0-18.0) g/dl Hct (42.0-52.0) % MCV (80.0-98.0) fL MCH (27.0-33.0) pg MCHC (31.0-36.0) g/dl RDW (11.0-16.0) % Plt Count (160-400) X10*3/uL MPV (9.4-12.4) fL Immature Gran % (Auto) (0.0-0.4) % Neut % (Auto) (45-73) % Lymph % (Auto) (20-40) % Huntington % (Auto) (2-11) % Eos % (Auto) (0-4) % Baso % (Auto) (0-2) % Lymph # (Auto) (1.2-4.9) X10*3/uL [place] # (Auto) (0.1-1.2) X10*3/uL Eos # (Auto) (0.0-0.4) X10*3/uL Baso # (Auto) (0.0-0.2) X10*3/uL Abs Immat Gran (auto) (0.00-0.03) X10*3/uL Absolute Neuts (auto) (2.0-8.3) x10*3/uL Absolute Nucleated RBC (0.0-0.012) X10*3/uL Nucleated RBC % (auto) (0.0-0.2) /100WBC Sodium (135-145) mmol/L Potassium (3.3-5.1) mmol/L Chloride (96-108) mmol/L Carbon Dioxide (22-29) mmol/L Anion Gap (12-20) BUN (9-16) mg/dL Creatinine (0.5-1.4) mg/dL Estim Creat Clear Calc Estimated GFR Random Glucose (60-115) mg/dL Calcium (8.4-10.2) mg/dL Total Bilirubin (0.0-1.0) mg/dL AST (5-37) U/L ALT (0-40) U/L Alkaline Phosphatase (39-117) U/L Total Protein (6.5-8.0) g/dL Albumin (3.5-5.0) g/dL Urine Color Dark Yellow Urine Appearance Clear Urine pH 5.5 (5.0-9.0) Ur Specific Newell 1.025 (1.005-1.025) Urine Protein Negative (Neg-Trace) mg/dL Urine Glucose (UA) Negative (Negative) mg/dL Urine Ketones Negative (Negative) mg/dL Urine Blood Negative (Negative) Urine Nitrite Negative (Negative) Ur Leukocyte Esterase Negative (Negative) Urine RBC 0-2 (0-2) /HPF Urine WBC 0-5 (0-5) /HPF Ur Squamous Epith Cells 3-5 (0-2) /HPF Urine Bacteria None Seen (None Seen) Hyaline Casts 0-2 (0-2) /LPF Salicylates (15-30) mg/dL Acetaminophen (<30) mcg/mL Valproic Acid < 12.5 L (50.0-100.0) mcg/mL Ethyl Alcohol mg/dL Discharge Plan Discharge Clinical Impression: Adjustment disorder Prescriptions: No Action sennosides [senna] 8.6 mg tablet 8.6 mg PO DAILY propranolol 160 mg capsule,extended release 24 hr 160 mg PO DAILY chlorpromazine 25 mg tablet 25 mg PO TID divalproex 500 mg tablet extended release 24 hr 1,000 mg PO BID docusate sodium 100 mg capsule 100 mg PO BID quetiapine 400 mg tablet 400 mg PO BID melatonin 5 mg Tablet 5 mg PO BEDTIME PRN (Reason: Sleep) guanfacine 4 mg tablet extended release 24 hr 4 mg PO DAILY lidocaine 5 % adhesive patch,medicated 1 patch topical DAILY Qty: 30 0RF Rx Instructions: leave on most painful area for up to 12 hrs doxycycline hyclate 100 mg tablet 100 mg PO BID 7 Days Qty: 14 0RF Interventions: [place]-Suicide Risk Severity Scale Last Done: 07/25/23 16:58
--- NOTE | 2023-07-25 17:34 | PC.NURSE ---
patient has remained calm and cooperative, changed over by security into hospital attire
--- NOTE | 2023-07-25 17:37 | MHC.CARE ---
CARE Team called and spoke Jacobo at [facility] who stated that they do not have any DDU beds available at this time.
[2023-07-25 18:02] LABS: MANUAL DIFF FLAG NO
[2023-07-25 18:06] LABS: Appearance Urine Clear; Basophils Percent Auto 0.4 % (0-2); Color Urine Dark Yellow; Eosinophils Absolute Auto 0.4 X10*3/uL (0.0-0.4); Eosinophils Percent Auto 4.3 % (0-4); Glucose Urine UA Negative (Negative); Hematocrit 44.6 % (42.0-52.0); Hemoglobin 14.6 g/dl (14.0-18.0); Imm Gran Abs Auto 0.03 X10*3/uL (0.00-0.03); Imm Gran Pct Auto 0.3 % (0.0-0.4); Leukocyte Esterase Urine Negative (Negative); Mean Corpuscular HGB Conc 32.7 g/dl (31.0-36.0); Mean Corpuscular Hemoglobin 28.7 pg (27.0-33.0); Mean Corpuscular Volume 87.6 fL (80.0-98.0); Mean Platelet Volume 10.3 fL (9.4-12.4); Monocytes Absolute Auto 0.7 X10*3/uL (0.1-1.2); Monocytes Percent Auto 7.2 % (2-11); Neutrophils Absolute Auto 3.9 x10*3/uL (2.0-8.3); Neutrophils Percent Auto 43.8 % (45-73); Nitrite Urine Negative (Negative); PH 5.5 (5.0-9.0); Platelet Count 279 X10*3/uL (160-400); Red Blood Count 5.09 X10*6/uL (4.60-5.80); Red Cell Distribution Width 13.9 % (11.0-16.0); Specific Gravity - Urine 1.025 (1.005-1.025); Urine Blood Negative (Negative); Urine Ketones Negative (Negative); Urine Protein Negative (Neg-Trace)
[2023-07-25 18:09] LABS: Bacteria Urine None Seen (None Seen); Hyaline Casts Urine 0-2 /LPF (0-2); RBC Urine 0-2 /HPF (0-2); WBC Urine 0-5 /HPF (0-5)
[2023-07-25 18:25] LABS: Acetaminophen LAB < 17 mcg/mL (<30); Alanine Aminotransferase 110 U/L (0-40); Albumin Level 4.1 g/dL (3.5-5.0); Alkaline Phosphatase 126 U/L (39-117); Anion Gap 13 (12-20); Aspartate Amino Transferase 107 U/L (5-37); Bilirubin Total 0.6 mg/dL (0.0-1.0); Blood Urea Nitrogen 10 mg/dL (9-16); Calcium 9.7 mg/dL (8.4-10.2); Carbon Dioxide 24 mmol/L (22-29); Chloride 108 mmol/L (96-108); Estimated Glomerular Filt Rate > 60; Ethanol < 10 mg/dL; Glucose Random 97 mg/dL (60-115); Potassium 3.9 mmol/L (3.3-5.1); Salicylate < 5.0 mg/dL (15-30); Sodium 141 mmol/L (135-145); Total Protein 8.9 g/dL (6.5-8.0); Valproate < 12.5 mcg/mL (50.0-100.0)
[2023-07-25 19:37] LABS: Amphetamine Screen Urine Not Detected (Not Detect); Barbiturates, Urine Not Detected (Not Detect); Benzodiazepines Screen Urine Not Detected (Not Detect); Cannabinoid Screen Urine POSITIVE (Not Detect); Cocaine Screen Urine Not Detected (Not Detect); Fentanyl, urine Not Detected (Not Detect); Opiate Screen Urine Not Detected (Not Detect); Phencyclidine Screen Urine Not Detected (Not Detect)
[2023-07-25] MEDS: Docusate Sodium 100 MG CAPSULE PO (20:00)
[2023-07-25] MEDS: Divalproex Sodium ER 500 MG TAB.ER.24H 1000 MG PO (20:00)
[2023-07-25] MEDS: Melatonin 3 MG TABLET 6 MG PO (20:00)
[2023-07-25] MEDS: QUEtiapine Fumarate 400 MG TABLET PO (20:00)
[2023-07-25] MEDS: chlorproMAZINE HCl 25 MG TABLET PO (20:00)
--- NOTE | 2023-07-26 02:41 | PC.NURSE ---
Patient currently in bed appears sleeping, no distress observed/reported, behavior non concerning but unpredictable, medication compliant, assessed by care team, disposition pending, labs completed/resulted, VSS, will continue to monitor.
[2023-07-26 06:36] VITALS: RESP 16
[2023-07-26 09:51] VITALS: BP 123/63; PULSE 87; RESP 16; TEMP 36.6; O2SAT 93
--- NOTE | 2023-07-26 09:56 | PC.NURSE ---
pt woke, exited his room, asking for the TV remote. t/w prompted pt to take his morning medications to which he stated nah, I'm good . pt returned to his room and had laid back down.
--- NOTE | 2023-07-26 10:54 | MHC.CARE ---
Patient evaluated by the CARE Team, does not require an inpatient admission [facility] ED provider Dr. Vega updated and in agreement.
== END 2023-07-26 12:30 | disposition other institution (70) ==
PROVIDERS: Emergency Provider Emergency Medicine
DX: F43.20 Adjustment disorder, unspecified (principal); R45.851 Suicidal ideations; F89 Unspecified disorder of psychological development; F12.90 Cannabis use, unspecified, uncomplicated; Z79.899 Other long term (current) drug therapy
CPT/HCPCS: 36415; 80053; 80143; 80164; 80179; 80307; 81001; 85025; 99285; S9485

== ENCOUNTER 2023-07-29 17:53 | Emergency (ER) | payer MEDICAID, SELFPAY ==
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
[2023-07-29 17:58] VITALS: BP 175/88; PULSE 102; O2SAT 98
[2023-07-29 18:06] VITALS: BMI 28.5
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
[2023-07-29] MEDS: Acetaminophen 325 MG TABLET 975 MG PO (19:49)
[2023-07-29] MEDS: Lidocaine 4 % Cream KIT 1 APPL TOPICAL (19:49)
[2023-07-29] MEDS: Ibuprofen 600 MG TABLET PO (19:49)
[2023-07-29 21:24] VITALS: BP 114/40; PULSE 86; RESP 14; TEMP 36.7; O2SAT 95
--- NOTE | 2023-07-29 21:26 | PC.NURSE ---
Pt aox4 resting at the bedside. Calm and cooperative. Left hand injury cleaned and debribed of glass. Pt tolerated well. Denies any pain at this time. Denies SI/HI. Pending disposition. Pt aware.
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
[2023-07-29] MEDS: Bacitracin Oint 0.9 GM PACKET 1 APPL TOPICAL (22:43)
--- NOTE | 2023-07-29 23:07 | PC.NURSE ---
Pt aox4 resting at the bedside, calm and cooperative. Denies SI/HI. Pt is [facility] to the intermediate via EMS. Nursing report provided to Wellington at [facility] via telephone. Wellington aware and expecting pt.
== END 2023-07-29 23:13 | disposition home or self-care (01) ==
PROVIDERS: Emergency Provider Emergency Medicine
DX: S61.412A Laceration without foreign body of left hand, initial encounter (principal); M79.642 Pain in left hand; X58.XXXA Exposure to other specified factors, initial encounter; Y93.9 Activity, unspecified; Y92.9 Unspecified place or not applicable; Y99.9 Unspecified external cause status; Z79.899 Other long term (current) drug therapy
CPT/HCPCS: 73130; 99283; 99284

== ENCOUNTER 2023-07-30 10:11 | Emergency (ER) | payer MEDICAID, SELFPAY ==
--- NOTE | ~2023-07-30 | XR_ITS ---
EXAMINATION: XR HAND, LEFT CLINICAL INFORMATION: Pain COMPARISON: Previous x-ray from yesterday TECHNIQUE: PA, lateral, and oblique views of the left hand. FINDINGS: Bone alignment is normal. No acute fracture or dislocation. There may be an old ulnar styloid fracture versus ununited accessory ossification center. 3 x 9 mm density projects over the proximal phalanx of the fourth finger. This is similar to previous exams. There is faint increased increased attenuation of the soft tissues adjacent to the ulnar side of the fifth MCP joint. There is also faint increased attenuation of the soft tissues adjacent to the ulnar side of the fifth [facility] joint. This is appreciated on the PA view only. Largest area measures 2 to 3 mm. Clinical correlation recommended. It is difficult to exclude soft tissue foreign body. XR/XR hand LT 2V IMPRESSION: No acute fracture or dislocation. Increased attenuation of the soft tissues adjacent to the ulnar side of the fifth MCP joint and ulnar side of the fifth [facility] joint. This is appreciated on the PA view only. It is difficult to exclude soft tissue foreign body. Clinical correlation with site of injury recommended.
[2023-07-30 10:16] VITALS: BP 168/87; PULSE 100; O2SAT 97
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
[2023-07-30 10:24] VITALS: BP 122/71; PULSE 96; RESP 18; TEMP 37.1; O2SAT 95; BMI 48.9
--- NOTE | 2023-07-30 11:10 | PC.NURSE ---
Pt on 1:1 observation d/t SI, xray obtained, VSS, lac on L arm no drainage, states 9/10 pain L FA, no acute distress at this time.
[2023-07-30] MEDS: Diphth,Pertus(ACell),Tet Adult 0.5 ML SYRINGE IM (14:35)
--- NOTE | 2023-07-30 14:50 | PC.NURSE ---
Pt given tetanus shot LOUISA, pt educated, tolerated well, pt resting quietly.
--- NOTE | 2023-07-30 14:58 | PC.NURSE ---
pt has been calm and cooperative since arrival to facility, in nad. discussed return to custodial with manager of financial planning joshua. called for ambulance transport back to facility.
== END 2023-07-30 17:35 | disposition home or self-care (01) ==
PROVIDERS: Emergency Provider Emergency Medicine
DX: S50.812A Abrasion of left forearm, initial encounter (principal); S60.052A Contusion of left little finger without damage to nail, initial encounter; W22.8XXA Striking against or struck by other objects, initial encounter; F43.20 Adjustment disorder, unspecified; F63.81 Intermittent explosive disorder; F14.10 Cocaine abuse, uncomplicated; F89 Unspecified disorder of psychological development; Z87.891 Personal history of nicotine dependence; Y93.9 Activity, unspecified; Y92.9 Unspecified place or not applicable; Y99.9 Unspecified external cause status
CPT/HCPCS: 73120; 90471; 90715; 99284

== ENCOUNTER 2023-07-31 12:14 | Emergency (ER) | payer MEDICAID, SELFPAY ==
[2023-07-31 12:26] VITALS: BP 118/76; PULSE 102; O2SAT 97; BMI 58.2
--- NOTE | 2023-07-31 12:34 | PC.NURSE ---
pt uncooperative for vitals at this time. pt's breathing is regular and unlabored, no apparent distress. given 5mg haldol and 5 mg versed by EMS. sitter at bedside.
--- NOTE | 2023-07-31 12:37 | PC.NURSE ---
Willam [phone], call for updates/discharge
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
--- NOTE | 2023-07-31 12:46 | PC.NURSE ---
pt refusing to have his vitals taken at this time. pt reporting that he wants to be discharged. pt refusing lab work at this time. Kalyn TIERNEY aware
--- NOTE | 2023-07-31 13:08 | PC.NURSE ---
pt denies SI. reports he wanted to come here today because he doesn't like his [facility] staff and wanted to get away from them. pt reports now wanting to go back to his [facility]
--- NOTE | 2023-07-31 15:30 | PC.NURSE ---
pt reports wanting to leave. denies SI at this time. continues to report he wants to go home now
--- NOTE | 2023-07-31 15:31 | PC.NURSE ---
pt continues to refuse blood work and vitals, reports he just wants to leave. pt in NAD, respirations even and unlabored
[2023-07-31 15:32] VITALS: RESP 16
[2023-07-31] MEDS: Bacitracin Oint 0.9 GM PACKET 1 APPL TOPICAL (16:05)
--- NOTE | 2023-07-31 16:22 | PC.NURSE ---
CARE team at bedside
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
--- NOTE | 2023-07-31 17:48 | MHC.CARE ---
CARE Team met with the pt at the request of KELSY Mccain. She requested a quick check in to see how he was feeling. Pt denied SI/HI/AVH and wants to return to the shelter. He stated that he only came to the ED due to not liking the staff that were on at the time.
--- NOTE | 2023-07-31 20:09 | PC.NURSE ---
this rn assumed care of pt @ 1900. 1:[address] pt refusing all care and vital signs. report given to ems prior to transport back to [facility]. this rn contacted [facility] director to give report on pt at discharge.
== END 2023-07-31 20:11 | disposition home or self-care (01) ==
PROVIDERS: Emergency Provider Emergency Medicine; PCP Nurse Practitioner Family
DX: R45.851 Suicidal ideations (principal); R45.1 Restlessness and agitation; Q98.0 Klinefelter syndrome karyotype 47, XXY; Z79.899 Other long term (current) drug therapy
CPT/HCPCS: 99284

== ENCOUNTER 2023-08-26 22:24 | Emergency (ER) | payer MEDICAID, SELFPAY ==
--- NOTE | 2023-08-26 | ECG_ITS ---
Test Reason : CHEST PAIN Blood Pressure : / mmHG Vent. Rate : 095 BPM Atrial Rate : 095 BPM P-R Int : 156 ms QRS Dur : 088 ms QT Int : 356 ms P-R-T Axes : 036 015 030 degrees QTc Int : 447 ms Normal sinus rhythm Normal ECG When compared with ECG of 12-JUL-2023 20:28, No significant change was found Referred By: Sabrina Hoffmann Electronically Signed By:JACOBO LAWRENCE
--- NOTE | 2023-08-26 22:31 | ED_ITS ---
HPI - Anxiety General Stated Complaint: ANXIETY Time Seen by Provider: 08/26/23 22:25 Source: patient, EMS and old records reviewed Mode of arrival: EMS Limitations: no limitations History of Present Illness HPI narrative: 22 yo male with mental health issues well known to us who was smoking THC tonight and had a couple of drinks he felt anxiety no SI so he came to the ED - he states I am chill now . complaint: anxiety Onset (ago): hour(s) (1) Symptoms: other Severity: mild Quality: improving Place: home History of similar episodes: Yes Provoking factors: other (THC) Relieving factors: rest Exacerbating factors: nothing Associated symptoms: denies other symptoms Related Data Home Medications Medication Instructions Recorded Confirmed chlorpromazine 25 mg tablet 25 mg PO TID 06/27/23 07/25/23 divalproex 500 mg tablet,extended 1,000 mg PO BID 06/27/23 07/25/23 release 24 hr docusate sodium 100 mg capsule 100 mg PO BID 06/27/23 07/25/23 guanfacine 4 mg tablet,extended 4 mg PO DAILY 06/27/23 07/25/23 release 24 hr melatonin 5 mg tablet 5 mg PO BEDTIME PRN Sleep 06/27/23 07/25/23 propranolol 160 mg capsule,24 160 mg PO DAILY 06/27/23 07/25/23 hr,extended release quetiapine 400 mg tablet 400 mg PO BID 06/27/23 07/25/23 Previous Rx's Medication Instructions Recorded lidocaine 5 % topical patch 1 patch topical DAILY #30 ea 07/09/23 doxycycline hyclate 100 mg tablet 100 mg PO BID 7 days #14 tabs 07/22/23 sennosides 8.6 mg tablet (senna) 8.6 mg PO BEDTIME 90 days #90 tabs 08/09/23 Allergies Allergy/AdvReac Type Severity Reaction Status Date / Time methylphenidate Allergy Unknown UNKNOWN Verified 07/22/23 14:17 [From RITALIN] shrimp [SHRIMP] Allergy Unknown HIVES Verified 07/22/23 14:17 haloperidol [From Haldol] Allergy Involuntary Verified 07/22/23 14:17 Spasms lactose Allergy Diarrhea Verified 07/22/23 14:17 Review of Systems Review of Systems: Constitutional : No Fever, No Chills ENT/Mouth : No Ear Pain, No Nasal Congestion, No sore throat Eyes: No Eye Pain, No Swelling, No Redness Cardiovascular : No Chest Pain, No SOB Respiratory : No Cough, No Sputum, No Dyspnea Gastrointestinal : No Nausea, No Vomiting, No Diarrhea, No Hematochezia, No Melena Genitourinary : No Dysuria, No Urinary Frequency, No Hematuria Musculoskeletal : No Myalgias Skin : No Skin Lesions, No rash Neuro : No Weakness, No Numbness, No Paresthesias, No Dizziness, No Headache Psych : positive Anxiety, no Depression, no SI/HI All other systems reviewed and are negative [facility] Past Medical History Attestation statement: The following information was validated with the patient. Source: old records reviewed Medical History Adjustment disorder Chronic abdominal pain Developmental disability Dyspnea Intellectual developmental disorder, severe Seborrheic dermatitis Seizures XXYY syndrome Surgical History History of testicular surgery Family History Family History Father No problems noted. Mother Hypertension Diabetes Other History of brain cancer Social History Social History Household Members: Other Household Members Other:: [facility] Housing: Other Do you presently have visiting nurse or other home services: No Alcohol intake: never Patient Tobacco Use Status: Never used Tobacco Tobacco use type: Cigarette Years Smoked: 16 years old e-Cigarette/Vaping Use: Never Used Second Hand Smoke Exposure: No Substance Use Type: Crack/Cocaine service: No Current occupational status: disabled Cognitive needs: Yes Hearing needs: No Vision needs: No Physical Exam Vital Signs: Appearance: Alert. Oriented X3. No acute distress. calm and cooperative Eyes: Pupils equal, round and reactive to light. ENT: Pharynx normal. Neck: Normal inspection. Neck supple. CVS: Normal heart rate and rhythm. Pulses normal. Respiratory: No respiratory distress. Breath sounds normal. Abdomen: Soft and nontender. Skin: Skin warm and dry. Normal skin color. Normal skin turgor. Extremities: No lower extremity edema. Neuro: Oriented X 3. No motor deficit. No sensory deficit. Medical Decision Making Medical Decision Making MDM Narrative: 22 yo male who had anxiety after ETOH and THC he is not intoxicated has steady gait, reassuring VS, EKG was done and normal at this time he states he has has no SI and is chill he states he can go home and sleep he is medically cleared. Differential Diagnosis Differential Diagnoses: The differential diagnosis associated with the presentation includes anxiety, substance misuse Independent Interpretation I performed an independent interpretation of an: EKG Interpretation: Rate: 95 Rhythm: NSR [place]: normal Normal P waves. Normal [place]. Normal QRS complex. ST T wave : normal no SARY qTC: normal prior studies: no acute ischemia The study has been interpreted contemporaneously by me. . Independent Historian Clinical information obtained from an independent historian. History obtained from or confirmed by: EMS External Record Review External record reviewed: Inpatient record Social Determinants Patient?s care significantly limited by Social Determinants of Health including: Problems related to primary support group Discharge Plan Discharge Clinical Impression: Anxiety Patient Disposition: Home, Self-Care Instructions: Anxiety (ED) Additional Instructions: return for thoughts of self harm, stay with responsible adult, go home and rest. Prescriptions: No Action sennosides [senna] 8.6 mg tablet 8.6 mg PO BEDTIME 90 Days Qty: 90 1RF propranolol 160 mg capsule,extended release 24 hr 160 mg PO DAILY chlorpromazine 25 mg tablet 25 mg PO TID divalproex 500 mg tablet extended release 24 hr 1,000 mg PO BID docusate sodium 100 mg capsule 100 mg PO BID quetiapine 400 mg tablet 400 mg PO BID melatonin 5 mg Tablet 5 mg PO BEDTIME PRN (Reason: Sleep) guanfacine 4 mg tablet extended release 24 hr 4 mg PO DAILY lidocaine 5 % adhesive patch,medicated 1 patch topical DAILY Qty: 30 0RF Rx Instructions: leave on most painful area for up to 12 hrs doxycycline hyclate 100 mg tablet 100 mg PO BID 7 Days Qty: 14 0RF
[2023-08-26 22:35] VITALS: BP 150/118; BP 154/85; PULSE 89; PULSE 93; RESP 16; TEMP 36.7; O2SAT 96; O2SAT 98; BMI 34.4
--- NOTE | 2023-08-26 23:01 | PC.NURSE ---
[facility] staff notified of pt discharge back home
== END 2023-08-26 23:49 | disposition home or self-care (01) ==
LOC: HO.ED 22:41
PROVIDERS: Emergency Provider Emergency Medicine
DX: F41.9 Anxiety disorder, unspecified (principal); Z79.899 Other long term (current) drug therapy
CPT/HCPCS: 93005; 99283; 99284

== ENCOUNTER 2023-09-02 20:55 | Emergency (ER) | payer MEDICAID, SELFPAY ==
[2023-09-02 21:05] VITALS: BP 135/80; PULSE 88; O2SAT 96; BMI 46.7
[2023-09-02 21:09] VITALS: BP 120/87; PULSE 83; RESP 16; TEMP 36.8; O2SAT 94
[2023-09-02 21:45] LABS: Alanine Aminotransferase 87 U/L (0-40); Alkaline Phosphatase 104 U/L (39-117); Anion Gap 15 (12-20); Aspartate Amino Transferase 80 U/L (5-37); Bilirubin Total 0.5 mg/dL (0.0-1.0); Blood Urea Nitrogen 13 mg/dL (9-16); Carbon Dioxide 21 mmol/L (22-29); Chloride 109 mmol/L (96-108); Creatinine Clr Calc Pharmacy 279.4; Estimated Glomerular Filt Rate > 60; Glucose Random 100 mg/dL (60-115); Lipase 33 U/L (8-78); Potassium 3.9 mmol/L (3.3-5.1); Sodium 141 mmol/L (135-145); Total Protein 8.5 g/dL (6.5-8.0)
--- NOTE | 2023-09-02 23:08 | ED.GENADULT ---
HPI - General Adult General Chief complaint: Abdominal Pain Stated complaint: LR abd pain. Pt. states it is his gallbladder Source: patient, RN notes reviewed and old records reviewed Mode of arrival: EMS Limitations: no limitations History of Present Illness HPI narrative: 22-year-old male with past medical history significant for XXYY syndrome, chronic abdominal pain, adjustment disorder, liver enzymes, to the mental delay presents for evaluation of abdominal pain Patient reports right-sided abdominal pain for the last 2 weeks Patient grabs his right lower abdomen but states ?my gallbladder hurts. ? He is unsure if he was ever diagnosed with any gallbladder issues such as gallstones He denies any nausea vomiting, diarrhea or constipation He states that he has never had any abdominal surgeries His pain is a 03/07 Related Data Home Medications Medication Instructions Recorded Confirmed chlorpromazine 25 mg tablet 25 mg PO TID 06/27/23 07/25/23 divalproex 500 mg tablet,extended 1,000 mg PO BID 06/27/23 07/25/23 release 24 hr docusate sodium 100 mg capsule 100 mg PO BID 06/27/23 07/25/23 guanfacine 4 mg tablet,extended 4 mg PO DAILY 06/27/23 07/25/23 release 24 hr melatonin 5 mg tablet 5 mg PO BEDTIME PRN Sleep 06/27/23 07/25/23 propranolol 160 mg capsule,24 160 mg PO DAILY 06/27/23 07/25/23 hr,extended release quetiapine 400 mg tablet 400 mg PO BID 06/27/23 07/25/23 Previous Rx's Medication Instructions Recorded lidocaine 5 % topical patch 1 patch topical DAILY #30 ea 07/09/23 doxycycline hyclate 100 mg tablet 100 mg PO BID 7 days #14 tabs 07/22/23 sennosides 8.6 mg tablet (senna) 8.6 mg PO BEDTIME 90 days #90 tabs 08/09/23 Allergies Allergy/AdvReac Type Severity Reaction Status Date / Time methylphenidate Allergy Unknown UNKNOWN Verified 09/02/23 21:08 [From RITALIN] shrimp [SHRIMP] Allergy Unknown HIVES Verified 09/02/23 21:08 haloperidol [From Haldol] Allergy Involuntary Verified 09/02/23 21:08 Spasms lactose Allergy Diarrhea Verified 09/02/23 21:08 Review of Systems Constitutional: Constitutional: Denies body ache(s), Denies chills and Denies fever(s) Cardiovascular: Cardiovascular: Denies chest pain and Denies dyspnea Respiratory: Respiratory: Denies cough and Denies dyspnea Gastrointestinal: Gastrointestinal: Reports abdominal pain, Denies melena, Denies hematochezia, Denies change in stool character, Denies nausea and Denies vomiting Genitourinary: Genitourinary: Denies oliguria Musculoskeletal: Musculoskeletal: Denies back pain PMFSH Past Medical History Medical History Adjustment disorder Chronic abdominal pain Developmental disability Dyspnea Intellectual developmental disorder, severe Seborrheic dermatitis Seizures XXYY syndrome Surgical History History of testicular surgery Family History Family History Father No problems noted. Mother Hypertension Diabetes Other History of brain cancer Social History Social History Household Members: Other Household Members Other:: [facility] Housing: Other Do you presently have visiting nurse or other home services: No Alcohol intake: never Patient Tobacco Use Status: Never used Tobacco Tobacco use type: Cigarette Years Smoked: 16 years old Smoked in Last 30 Days: No e-Cigarette/Vaping Use: Never Used Second Hand Smoke Exposure: No Use of substances other than those prescribed or required for medical reasons: No Substance Use Type: Marijuana Advance Directives: No Advance Directives Information Provided: No service: No Current occupational status: disabled Cognitive needs: Yes Hearing needs: No Vision needs: No Physical Exam ED Vital Signs: Vital Signs - 24 hr 09/02/23 21:09 Temperature 98.3 F Pulse Rate 83 Respiratory Rate 16 Blood Pressure 120/87 Pulse Oximetry 94 Oxygen Delivery Method Room Air BMI result Body Mass Index 46.7 Const General: healthy appearing, comfortable, no acute distress, alert and awake Nutritional Appearance: well nourished Orientation/consciousness: patient oriented x3 HENMT Head: Yes normocephalic and Yes atraumatic Eyes Eyelids: Yes eyelids normal Conjunctivae: conjunctivae normal Sclerae: sclerae normal Corneas: corneas normal Pupils: Equal, round and reactive pupils present EOM: EOMs intact bilaterally Neck Neck: Yes full ROM Resp Effort & Inspection: normal respiratory effort, able to speak in complete sentences and not labored GI Other: Patient is subjectively tender in the right lower quadrant without guarding, or rebound. Inspection: No distended Palpation (GI): Soft to palpation, not firm, no guarding and not rigid Auscultation: normoactive bowel sounds Skin General skin exam: no rashes or lesions noted and elasticity normal Neuro General: patient oriented x3 Cranial nerves: Yes Equal, round and reactive pupils present and Yes Bilaterally intact EOM present Cognition (Neuro): normal cognition Extrem Other: Moving all extremities well without any obvious deformities Course Reevaluation(s) Reevaluation #1: Patient has chronic abdominal pain, his labs are consistent with his baseline, his a physical exam is reassuring, vital signs are stable, he is stable for discharge. The patient's X requesting discharge at this time as Time: 23:31 Medications Administered Discontinued Medications Generic Name Dose Route Start Last Admin Trade Name Freq PRN Reason Stop Dose Admin Ketorolac Tromethamine 30 mg 09/02/23 21:29 09/02/23 22:07 Ketorolac Tromethamine 30 Mg/Ml Vial IM 09/02/23 21:30 30 mg ONCE ONE Administration Medical Decision Making Medical Decision Making [facility] Narrative: 22-year-old male presents for evaluation abdominal pain for the last 2 weeks. He denies any GI symptoms such as nausea vomiting. He denies any symptoms such as urinary frequency, blood in the your. Plan for labs, his abdominal exam is reassuring, so will hold imaging at this time. Very low suspicion for surgical abdomen Patient medicated with Toradol Differential Diagnosis Differential Diagnoses: The differential diagnosis associated with the presentation includes Chronic abdominal pain Constipation Cholelithiasis Acute cholecystitis Adjustment disorder Lab Data [facility] Lab Attestation statement: I reviewed the patient's lab results. No leukocytosis or anemia. Patient's chloride is just above normal at 109, his CO2 is just below normal at 21. Patient has a mild transaminitis with the AST of 80 and an ALT of 87. These are consistent his recent baseline. His T bili is normal limits, so doubt obstruction biliary disease 09/02/23 21:22 09/02/23 21:22 Labs: Lab Results 09/02/23 Range/Units 21: WBC 9.9 (4.8-10.8) X10*3/uL RBC 5.15 (4.60-5.80) X10*6/uL Hgb 14.5 (14.0-18.0) g/dl Hct 44.4 (42.0-52.0) % MCV 86.2 (80.0-98.0) fL MCH 28.2 (27.0-33.0) pg MCHC 32.7 (31.0-36.0) g/dl RDW 14.0 (11.0-16.0) % Plt Count 272 (160-400) X10*3/uL MPV 10.5 (9.4-12.4) fL Absolute Nucleated RBC 0.000 (0.0-0.012) X10*3/uL Nucleated RBC % (auto) 0.0 (0.0-0.2) /100WBC Sodium 141 (135-145) mmol/L Potassium 3.9 (3.3-5.1) mmol/L Chloride 109 H (96-108) mmol/L Carbon Dioxide 21 L (22-29) mmol/L Anion Gap 15 (12-20) BUN 13 (9-16) mg/dL Creatinine 0.72 (0.5-1.4) mg/dL Estim Creat Clear Calc 279.4 Estimated GFR > 60 Random Glucose 100 (60-115) mg/dL Calcium 10.0 (8.4-10.2) mg/dL Total Bilirubin 0.5 (0.0-1.0) mg/dL AST 80 H (5-37) U/L ALT 87 H (0-40) U/L Alkaline Phosphatase 104 (39-117) U/L Total Protein 8.5 H (6.5-8.0) g/dL Albumin 4.0 (3.5-5.0) g/dL Lipase 33 (8-78) U/L Discharge Plan Discharge Clinical Impression: Abdominal pain Patient Disposition: Home, Self-Care Instructions: Abdominal Pain (ED) Additional Instructions: Your workup in the emergency department today was reassuring. Use ibuprofen as needed for pain Follow-up your primary doctor Return for new or worsening symptoms Prescriptions: No Action sennosides [senna] 8.6 mg tablet 8.6 mg PO BEDTIME 90 Days Qty: 90 1RF propranolol 160 mg capsule,extended release 24 hr 160 mg PO DAILY chlorpromazine 25 mg tablet 25 mg PO TID divalproex 500 mg tablet extended release 24 hr 1,000 mg PO BID docusate sodium 100 mg capsule 100 mg PO BID quetiapine 400 mg tablet 400 mg PO BID melatonin 5 mg Tablet 5 mg PO BEDTIME PRN (Reason: Sleep) guanfacine 4 mg tablet extended release 24 hr 4 mg PO DAILY lidocaine 5 % adhesive patch,medicated 1 patch topical DAILY Qty: 30 0RF Rx Instructions: leave on most painful area for up to 12 hrs doxycycline hyclate 100 mg tablet 100 mg PO BID 7 Days Qty: 14 0RF
--- NOTE | 2023-09-02 23:38 | PC.NURSE ---
Willam at detention notified of pts return to detention.
--- NOTE | 2023-09-02 23:46 | MHC.EDTECH ---
Call out to [facility] @[id number] Spoke to Ok who gave me an ETA of 1hour for pickup.
--- NOTE | 2023-09-03 11:09 | PC.NURSE ---
This keno writer / runner informed by kashifg supervisor packing room long term staff did not receive d/c paperwork. Attempted to call long term to give verbal report, no answer. [facility]over Runner aware
== END 2023-09-03 02:00 | disposition home or self-care (01) ==
PROVIDERS: Physician Assistant; Emergency Provider Student in an Organized Health Care Education/Training Program
DX: R10.31 Right lower quadrant pain (principal); F12.90 Cannabis use, unspecified, uncomplicated; F89 Unspecified disorder of psychological development; F43.20 Adjustment disorder, unspecified; Q98 Other sex chromosome abnormalities, male phenotype, not elsewhere classified; K76.0 Fatty (change of) liver, not elsewhere classified; G47.33 Obstructive sleep apnea (adult) (pediatric); F14.10 Cocaine abuse, uncomplicated; Z79.84 Long term (current) use of oral hypoglycemic drugs; Z79.899 Other long term (current) drug therapy
CPT/HCPCS: 36415; 80053; 83690; 85027; 96372; 99284; J1885

== ENCOUNTER 2023-09-09 16:43 | Emergency (ER) | payer MEDICAID, SELFPAY ==
[2023-09-09 17:03] VITALS: BP 144/78; PULSE 69; O2SAT 98
[2023-09-09 17:19] VITALS: BP 119/62; PULSE 66; RESP 18; TEMP 36.1; O2SAT 97; BMI 28.9
--- NOTE | 2023-09-09 17:20 | ED.PSYCH ---
HPI - Psych General Chief Complaint: Behavioral Concerns Stated Complaint: broke window making SI/HI statements Time Seen by Provider: 09/09/23 17:19 Source: EMS Mode of arrival: EMS Limitations: other (aggressive behavior) History of Present Illness HPI Narrative: patient got frustrated and angry, broke a window with a chair and was sent in. patient is not suicidal or homicidal complaint: other (angry) Onset (ago): hour(s) Duration: changing over time History of same: Yes Relieving factors: none Related Data Home Medications Medication Instructions Recorded Confirmed chlorpromazine 25 mg tablet 25 mg PO TID 06/27/23 07/25/23 divalproex 500 mg tablet,extended 1,000 mg PO BID 06/27/23 07/25/23 release 24 hr docusate sodium 100 mg capsule 100 mg PO BID 06/27/23 07/25/23 guanfacine 4 mg tablet,extended 4 mg PO DAILY 06/27/23 07/25/23 release 24 hr melatonin 5 mg tablet 5 mg PO BEDTIME PRN Sleep 06/27/23 07/25/23 propranolol 160 mg capsule,24 160 mg PO DAILY 06/27/23 07/25/23 hr,extended release quetiapine 400 mg tablet 400 mg PO BID 06/27/23 07/25/23 Previous Rx's Medication Instructions Recorded lidocaine 5 % topical patch 1 patch topical DAILY #30 ea 07/09/23 doxycycline hyclate 100 mg tablet 100 mg PO BID 7 days #14 tabs 07/22/23 sennosides 8.6 mg tablet (senna) 8.6 mg PO BEDTIME 90 days #90 tabs 08/09/23 Allergies Allergy/AdvReac Type Severity Reaction Status Date / Time methylphenidate Allergy Unknown UNKNOWN Verified 09/02/23 21:08 [From RITALIN] shrimp [SHRIMP] Allergy Unknown HIVES Verified 09/02/23 21:08 haloperidol [From Haldol] Allergy Involuntary Verified 09/02/23 21:08 Spasms lactose Allergy Diarrhea Verified 09/02/23 21:08 Review of Systems Review of Systems: Yes all other systems are reviewed and are negative Neurologic: Denies Sensory deficit (Neuro) PMFSH Past Medical History Medical History Intellectual developmental disorder, severe Dyspnea Adjustment disorder Seborrheic dermatitis Chronic abdominal pain Seizures XXYY syndrome Developmental disability Surgical History History of testicular surgery Family History Family History Father No problems noted. Mother Hypertension Diabetes Other History of brain cancer Social History Social History Household Members: Other Household Members Other:: skilled nursing Housing: Other Do you presently have visiting nurse or other home services: No Alcohol intake: never Patient Tobacco Use Status: Never used Tobacco Tobacco use type: Cigarette Years Smoked: 16 years old e-Cigarette/Vaping Use: Never Used Second Hand Smoke Exposure: No Substance Use Type: Marijuana service: No Current occupational status: disabled Cognitive needs: Yes Hearing needs: No Vision needs: No Physical Exam Vital Signs: Vital Signs: Last Vital Signs Temp 96.9 F 09/09/23 17:19 Pulse 66 09/09/23 17:19 Resp 18 09/09/23 17:19 BP 119/62 09/09/23 17:19 Pulse Ox 97 09/09/23 17:19 O2 Del Method Room Air 09/09/23 17:19 BMI result Body Mass Index 28.9 Const: Other: obese male calm General: healthy appearing Nutritional Appearance: overweight Orientation/consciousness: oriented to person Limitations: behavioral limitations HEENT: Head: Yes normal to inspection Ears: external ears normal General nose exam: Normal external nose present Mouth: Normal oral and palatal mucosa present and oropharynx normal Throat: Yes posterior oropharynx normal Eyes: General: appearance normal, both eyes and all related structures Neck: Other: supple Neck: Yes normal visual inspection Chest: Chest palpation & inspection: normal inspection of the chest Resp: Auscultation: clear to auscultation bilaterally Cardio: Jugular venous distension: no JVD Rate: regular rate Rhythm: regular rhythm Heart sounds: S1 normal heart sound present and S2 normal heart sound present GI: Inspection: Yes normal to inspection Palpation (GI): Soft to palpation, nontender and No hepatosplenomegaly present Auscultation: normal bowel sounds : General: Yes no CVA tenderness Back/Spine/Pelvis: Back: no CVA tenderness Skin: General skin exam: no rashes or lesions noted Neuro: General: oriented to person Cranial nerves: Yes CN's II-XII intact bilaterally Motor exam (neuro): 5/5 motor strength present throughout Sensory Exam: No Sensory deficit (Neuro) Extrem: General: Yes normal to inspection Psych: Other: currently calm not acting out Course Reevaluation(s) Reevaluation #1: patient is currently calm, not suicidal or homicidal will dc home Time: 17:37 Medical Decision Making Differential Diagnosis Differential Diagnoses: The differential diagnosis associated with the presentation includes (agitation, aggressive behavior) Admission/Observation Consideration of admission/observation: Escalation of care including admission/observation considered (patient considered for admission but is currently calm) Independent Historian Clinical information obtained from an independent historian. History obtained from or confirmed by: EMS External Record Review External record reviewed: Inpatient record and Outpatient record Prescription Management I considered prescription management with: Other (anxiety medication considered but patient is calm) Social Determinants Patient?s care significantly limited by Social Determinants of Health including: Other Social Determinant of Health (Developmental delay) Discharge Plan Discharge Clinical Impression: Adjustment disorder Patient Disposition: Home, Self-Care Prescriptions: No Action sennosides [senna] 8.6 mg tablet 8.6 mg PO BEDTIME 90 Days Qty: 90 1RF propranolol 160 mg capsule,extended release 24 hr 160 mg PO DAILY chlorpromazine 25 mg tablet 25 mg PO TID divalproex 500 mg tablet extended release 24 hr 1,000 mg PO BID docusate sodium 100 mg capsule 100 mg PO BID quetiapine 400 mg tablet 400 mg PO BID melatonin 5 mg Tablet 5 mg PO BEDTIME PRN (Reason: Sleep) guanfacine 4 mg tablet extended release 24 hr 4 mg PO DAILY lidocaine 5 % adhesive patch,medicated 1 patch topical DAILY Qty: 30 0RF Rx Instructions: leave on most painful area for up to 12 hrs doxycycline hyclate 100 mg tablet 100 mg PO BID 7 Days Qty: 14 0RF Referrals: Physician,Nonstaff [Physician] - 5 days
--- NOTE | 2023-09-09 17:48 | PC.NURSE ---
reached out to patient process control programmer for patient d/c and ride home.
--- NOTE | 2023-09-09 19:11 | PC.NURSE ---
Addendum entered by Tanya De Jesus RN 09/09/23 19:13: pt has remained calm and cooperative, ate dinner and has sitter 1:1 in front of nurses station Original Note: per care team and digital production manager joshua pt has care plan for ambulance ride home due to behavioral outbursts and grabbing steering wheel. hospital secretary notified RN that [facility] denied ambulance for patient, CARE team aware of situation and will update as information is available
[2023-09-09 20:00] VITALS: RESP 16
--- NOTE | 2023-09-09 20:44 | PC.NURSE ---
pt requested to speak with this RN requesting he go home however ed elementary secretary unable to book ems transfer home. pt made aware. slight increase agitation verbalized by pt. sitter at bedside.
[2023-09-09 21:09] VITALS: RESP 16
== END 2023-09-09 21:21 | disposition home or self-care (01) ==
PROVIDERS: Emergency Provider Emergency Medicine
DX: F43.20 Adjustment disorder, unspecified (principal); F63.81 Intermittent explosive disorder; Q98 Other sex chromosome abnormalities, male phenotype, not elsewhere classified; F14.10 Cocaine abuse, uncomplicated; Z79.899 Other long term (current) drug therapy
CPT/HCPCS: 99283

== ENCOUNTER 2023-09-16 17:57 | Emergency (ER) | payer MEDICAID, SELFPAY ==
[2023-09-16 18:01] VITALS: BP 121/54; PULSE 94; O2SAT 94
[2023-09-16 18:02] VITALS: BP 124/67; PULSE 84; RESP 18; TEMP 37; O2SAT 98; BMI 38.4
--- NOTE | 2023-09-16 18:39 | ED_ITS ---
HPI - URI/Sore Throat General Chief Complaint: Upper Respiratory Symptoms Stated Complaint: NOT FEELING WELL,+COVID Time Seen by Provider: 09/16/23 18:35 Source: patient Mode of arrival: ambulatory Limitations: no limitations History of Present Illness HPI Narrative: Patient has no history of asthma or lung conditions, has XXYY syndrome with intermittent explosive disorder been feeling sick since yesterday went to urgent care center,tested positive for COVID comes as not feeling good no significant shortness of breath occasional cough, saturating 98% at room air Related Data Home Medications Medication Instructions Recorded Confirmed chlorpromazine 25 mg tablet 25 mg PO TID 06/27/23 07/25/23 divalproex 500 mg tablet,extended 1,000 mg PO BID 06/27/23 07/25/23 release 24 hr docusate sodium 100 mg capsule 100 mg PO BID 06/27/23 07/25/23 guanfacine 4 mg tablet,extended 4 mg PO DAILY 06/27/23 07/25/23 release 24 hr melatonin 5 mg tablet 5 mg PO BEDTIME PRN Sleep 06/27/23 07/25/23 propranolol 160 mg capsule,24 160 mg PO DAILY 06/27/23 07/25/23 hr,extended release quetiapine 400 mg tablet 400 mg PO BID 06/27/23 07/25/23 Previous Rx's Medication Instructions Recorded lidocaine 5 % topical patch 1 patch topical DAILY #30 ea 07/09/23 doxycycline hyclate 100 mg tablet 100 mg PO BID 7 days #14 tabs 07/22/23 sennosides 8.6 mg tablet (senna) 8.6 mg PO BEDTIME 90 days #90 tabs 08/09/23 benzonatate 200 mg capsule 200 mg PO TID PRN cough #20 caps 09/16/23 ibuprofen 600 mg tablet 600 mg PO Q6H PRN fever or pain 09/16/23 #30 tabs Allergies Allergy/AdvReac Type Severity Reaction Status Date / Time methylphenidate Allergy Unknown UNKNOWN Verified 09/02/23 21:08 [From RITALIN] shrimp [SHRIMP] Allergy Unknown HIVES Verified 09/02/23 21:08 haloperidol [From Haldol] Allergy Involuntary Verified 09/02/23 21:08 Spasms lactose Allergy Diarrhea Verified 09/02/23 21:08 Review of Systems Review of Systems: Yes all other systems are reviewed and are negative PMFSH Past Medical History Medical History Intellectual developmental disorder, severe Dyspnea Adjustment disorder Seborrheic dermatitis Chronic abdominal pain Seizures XXYY syndrome Developmental disability Surgical History History of testicular surgery Family History Family History Father No problems noted. Mother Hypertension Diabetes Other History of brain cancer Social History Social History Household Members: Other Household Members Other:: shelter Housing: Other Do you presently have visiting nurse or other home services: No Alcohol intake: never Patient Tobacco Use Status: Never used Tobacco Tobacco use type: Cigarette Years Smoked: 16 years old Smoked in Last 30 Days: No e-Cigarette/Vaping Use: Never Used Second Hand Smoke Exposure: No Use of substances other than those prescribed or required for medical reasons: No Substance Use Type: Marijuana Advance Directives: No Advance Directives Information Provided: No service: No Current occupational status: disabled Cognitive needs: Yes Hearing needs: No Vision needs: No Physical Exam Vital Signs: Vital Signs: Last Vital Signs Temp 98.6 F 09/16/23 18:02 Pulse 84 09/16/23 18:02 Resp 18 09/16/23 18:02 BP 124/67 09/16/23 18:02 Pulse Ox 97 09/16/23 22:29 O2 Del Method Room Air 09/16/23 22:29 BMI result Body Mass Index 38.4 Appearance: Alert. Oriented X3. No acute distress. Obese ENT: Pharynx normal. Oral Mucosa moist Neck: Normal inspection. Neck supple. CVS: Normal heart rate and rhythm. Pulses normal. Respiratory: No respiratory distress. Equal air entry bilateral, no wheezing/rales/rhonchi Abdomen: Soft and nontender. Skin: Skin warm and dry. Normal skin color. Normal skin turgor. Extremities: No lower extremity edema. No calf tenderness Neuro: Oriented X 3. Medications Administered Discontinued Medications Generic Name Dose Route Start Last Admin Trade Name Freq PRN Reason Stop Dose Admin Benzonatate 200 mg 09/16/23 18:41 09/16/23 19:09 Benzonatate 100 Mg Capsule PO 09/16/23 18:42 200 mg ONCE ONE Administration Ibuprofen 600 mg 09/16/23 18:41 09/16/23 19:09 Ibuprofen 600 Mg Tablet PO 09/16/23 18:42 600 mg ONCE ONE Administration Discharge Plan Discharge Clinical Impression: COVID-19 Patient Disposition: Home, Self-Care Instructions: COVID-19 (Coronavirus Disease 2019) (ED) Additional Instructions: Cough drops as prescribed Ibuprofen for pain Report to the ER if increased shortness of breath Prescriptions: New benzonatate 200 mg capsule 200 mg PO TID PRN (Reason: cough) Qty: 20 0RF ibuprofen 600 mg tablet 600 mg PO Q6H PRN (Reason: fever or pain) Qty: 30 0RF No Action sennosides [senna] 8.6 mg tablet 8.6 mg PO BEDTIME 90 Days Qty: 90 1RF propranolol 160 mg capsule,extended release 24 hr 160 mg PO DAILY chlorpromazine 25 mg tablet 25 mg PO TID divalproex 500 mg tablet extended release 24 hr 1,000 mg PO BID docusate sodium 100 mg capsule 100 mg PO BID quetiapine 400 mg tablet 400 mg PO BID melatonin 5 mg Tablet 5 mg PO BEDTIME PRN (Reason: Sleep) guanfacine 4 mg tablet extended release 24 hr 4 mg PO DAILY lidocaine 5 % adhesive patch,medicated 1 patch topical DAILY Qty: 30 0RF Rx Instructions: leave on most painful area for up to 12 hrs doxycycline hyclate 100 mg tablet 100 mg PO BID 7 Days Qty: 14 0RF Interventions: ED Discharge Assessment Last Done: 09/16/23 22:32 Discharge Date/Time: 09/16/23 22:33
[2023-09-16] MEDS: Benzonatate 100 MG CAPSULE 200 MG PO (19:09)
[2023-09-16] MEDS: Ibuprofen 600 MG TABLET PO (19:09)
[2023-09-16 22:29] VITALS: O2SAT 97
== END 2023-09-16 22:33 | disposition home or self-care (01) ==
PROVIDERS: Emergency Provider Internal Medicine
DX: U07.1 COVID-19 (principal); F63.81 Intermittent explosive disorder; Z79.899 Other long term (current) drug therapy
CPT/HCPCS: 99283; 99285

== ENCOUNTER 2023-09-19 19:38 | Emergency (ER) | payer MEDICAID, SELFPAY ==
--- NOTE | 2023-09-19 19:58 | ED_ITS ---
HPI - Psych General Chief Complaint: Psychiatric Symptoms Stated Complaint: SI/HI and drug drug use Time Seen by Provider: 09/19/23 19:42 Source: patient and old records reviewed Mode of arrival: EMS Limitations: no limitations History of Present Illness HPI Narrative: 22 yo malewith hx of intermittent explosive disorder now with some drug use recently states he isn't happy with his life due to family issues and detention. He has been sneaking out of the detention and sleeping in a car wash until emanuel. He has also been using cocaine, THC and mushrooms to escape. He now has thoughts of SI and self harm which is chronic for him. He states he was also diagnosed with COVID on . Made HI reference but not to anyone in particular states he has shank in my room MD complaint: suicidal ideation, feels depressed and substance abuse Onset (ago): week(s) Duration: getting worse History of same: Yes Relieving factors: none Exacerbating factors: drug use Context: recent drug abuse Associated psychiatric symptoms: depression, suicidal ideation and homicidal ideation Associated symptoms: denies other symptoms Treatments prior to arrival: none Related Data Home Medications Medication Instructions Recorded Confirmed chlorpromazine 25 mg tablet 25 mg PO TID 06/27/23 07/25/23 divalproex 500 mg tablet,extended 1,000 mg PO BID 06/27/23 07/25/23 release 24 hr docusate sodium 100 mg capsule 100 mg PO BID 06/27/23 07/25/23 guanfacine 4 mg tablet,extended 4 mg PO DAILY 06/27/23 07/25/23 release 24 hr melatonin 5 mg tablet 5 mg PO BEDTIME PRN Sleep 06/27/23 07/25/23 propranolol 160 mg capsule,24 160 mg PO DAILY 06/27/23 07/25/23 hr,extended release quetiapine 400 mg tablet 400 mg PO BID 06/27/23 07/25/23 Previous Rx's Medication Instructions Recorded lidocaine 5 % topical patch 1 patch topical DAILY #30 ea 07/09/23 doxycycline hyclate 100 mg tablet 100 mg PO BID 7 days #14 tabs 07/22/23 sennosides 8.6 mg tablet (senna) 8.6 mg PO BEDTIME 90 days #90 tabs 08/09/23 benzonatate 200 mg capsule 200 mg PO TID PRN cough #20 caps 09/16/23 ibuprofen 600 mg tablet 600 mg PO Q6H PRN fever or pain 09/16/23 #30 tabs Allergies Allergy/AdvReac Type Severity Reaction Status Date / Time methylphenidate Allergy Unknown UNKNOWN Verified 09/02/23 21:08 [From RITALIN] shrimp [SHRIMP] Allergy Unknown HIVES Verified 09/02/23 21:08 haloperidol [From Haldol] Allergy Involuntary Verified 09/02/23 21:08 Spasms lactose Allergy Diarrhea Verified 09/02/23 21:08 Review of Systems 2 Review of Systems: Constitutional : No Fever, No Chills ENT/Mouth : No Ear Pain, No Nasal Congestion, No sore throat Eyes: No Eye Pain, No Swelling, No Redness Cardiovascular : No Chest Pain, No SOB Respiratory : No Cough, No Sputum, No Dyspnea Gastrointestinal : No Nausea, No Vomiting, No Diarrhea, No Hematochezia, No Melena Genitourinary : No Dysuria, No Urinary Frequency, No Hematuria Musculoskeletal : No Myalgias Skin : No Skin Lesions, No rash Neuro : No Weakness, No Numbness, No Paresthesias, No Dizziness, No Headache Psych : positive Anxiety, positive Depression, positive SI/HI Heme/Lymph: No Lymphadenopathy Endocrine : No Polyuria, No Polydipsia All other systems reviewed and are negative PMFSH Past Medical History Attestation statement: The following information was validated with the patient. Source: old records reviewed Medical History Intellectual developmental disorder, severe Dyspnea Adjustment disorder Seborrheic dermatitis Chronic abdominal pain Seizures XXYY syndrome Developmental disability Surgical History History of testicular surgery Family History Family History Father No problems noted. Mother Hypertension Diabetes Other History of brain cancer Social History Social History Household Members: Other Household Members Other:: detention Housing: Other Do you presently have visiting nurse or other home services: No Alcohol intake: never Patient Tobacco Use Status: Never used Tobacco Tobacco use type: Cigarette Years Smoked: 16 years old Smoked in Last 30 Days: Yes e-Cigarette/Vaping Use: Never Used Second Hand Smoke Exposure: No Use of substances other than those prescribed or required for medical reasons: Yes Substance Use Type: Crack/Cocaine and Marijuana Substance Use Type Other:: Mushroom Substance Use Frequency: Occasionally Last Used Substance: Just Prior to Admission Any prior treatment program specific to substance use: No Advance Directives: No Advance Directives Information Provided: No service: No Current occupational status: disabled Cognitive needs: Yes Hearing needs: No Vision needs: No Physical Exam 2 Vital Signs: Vital Signs: Last Vital Signs Temp 98.3 F 09/19/23 19:59 Pulse 130 H 09/19/23 19:59 Resp 16 09/19/23 19:59 BP 132/74 09/19/23 19:59 Pulse Ox 95 09/19/23 19:59 O2 Del Method Room Air 09/19/23 19:59 BMI result Body Mass Index 40.7 Appearance: Alert. Oriented X3. No acute distress. Eyes: Pupils equal, round and reactive to light. ENT: Pharynx normal. Neck: Normal inspection. Neck supple. CVS: tachycardic heart rate and rhythm. Pulses normal. Respiratory: No respiratory distress. Breath sounds normal. Abdomen: Soft and nontender. Skin: Skin warm and dry. Normal skin color. Normal skin turgor. Extremities: No lower extremity edema. No calf ttp Neuro: Oriented X 3. No motor deficit. No sensory deficit. CN2-12 intact Course Course Course Narrative: Physician observation started at 847pm. Patient placed in physician observation because the patient needed more time CARE team to assess his risk. At the time observation was started the patient's vitals were stable, patient is alert and oriented, Neuro: nonfocal, CV RRR, Lungs clear Medications Administered Discontinued Medications Generic Name Dose Route Start Last Admin Trade Name Jayant PRN Reason Stop Dose Admin Acetaminophen 650 mg 09/19/23 21:21 09/19/23 21:26 Acetaminophen 325 Mg Tablet PO 09/19/23 21:22 650 mg ONCE ONE Administration Medical Decision Making Medical Decision Making [facility] Narrative: 22 yo male well known to us here with c/o SI/HI drug use also states he was diagnosed with COVID on but does not report symptoms other than loss of taste and smell. He used cocaine, THC and mushrooms tonight to escape. He will need labs, observation. I am a little concerned about his HI statements and talking about a shank in his room may need to involve CARE team given concern for others safety. Differential Diagnosis Differential Diagnoses: The differential diagnosis associated with the presentation includes substance abuse, mood disorder, conduct disorder Admission/Observation Consideration of admission/observation: Escalation of care including admission/observation considered not positive for cocaine, negative for COVID, no knives found in room at detention at this time detention aware he is leaving it seems that this is all behavioral. Consult Healthcare Provider Management of the patient was discussed with: Behavioral Health Provider Lab Data [facility] Lab Attestation statement: I reviewed the patient's lab results. 09/19/23 20:23 09/19/23 20:23 Labs: Lab Results 09/19/23 09/19/23 Range/Units 20:23 22:25 WBC 9.5 (4.8-10.8) X10*3/uL RBC 4.96 (4.60-5.80) X10*6/uL Hgb 13.6 L (14.0-18.0) g/dl Hct 43.4 (42.0-52.0) % MCV 87.5 (80.0-98.0) fL MCH 27.4 (27.0-33.0) pg MCHC 31.3 (31.0-36.0) g/dl RDW 14.3 (11.0-16.0) % Plt Count 273 (160-400) X10*3/uL MPV 10.4 (9.4-12.4) fL Immature Gran % (Auto) 0.3 (0.0-0.4) % Neut % (Auto) 65.7 (45-73) % Lymph % (Auto) 26.5 (20-40) % [place] % (Auto) 5.5 (2-11) % Eos % (Auto) 1.8 (0-4) % Baso % (Auto) 0.2 (0-2) % Lymph # (Auto) 2.5 (1.2-4.9) X10*3/uL [place] # (Auto) 0.5 (0.1-1.2) X10*3/uL Eos # (Auto) 0.2 (0.0-0.4) X10*3/uL Baso # (Auto) 0.0 (0.0-0.2) X10*3/uL Abs Immat Gran (auto) 0.03 (0.00-0.03) X10*3/uL Absolute Neuts (auto) 6.3 (2.0-8.3) x10*3/uL Absolute Nucleated RBC 0.000 (0.0-0.012) X10*3/uL Nucleated RBC % (auto) 0.0 (0.0-0.2) /100WBC Sodium 145 (135-145) mmol/L Potassium 3.7 (3.3-5.1) mmol/L Chloride 108 (96-108) mmol/L Carbon Dioxide 25 (22-29) mmol/L Anion Gap 16 (12-20) BUN 11 (9-16) mg/dL Creatinine 0.94 (0.5-1.4) mg/dL Estim Creat Clear Calc 173.0 Estimated GFR > 60 Random Glucose 115 (60-115) mg/dL Calcium 10.3 H (8.4-10.2) mg/dL Total Bilirubin 0.4 (0.0-1.0) mg/dL AST 65 H (5-37) U/L ALT 58 H (0-40) U/L Alkaline Phosphatase 94 (39-117) U/L Total Protein 8.4 H (6.5-8.0) g/dL Albumin 3.9 (3.5-5.0) g/dL Urine Color Dark Yellow Urine Appearance Clear Urine pH 5.5 (5.0-9.0) Ur Specific [place] >= 1.030 H (1.005-1.025) Urine Protein 30 (1+) H (Neg-Trace) mg/dL Urine Glucose (UA) Negative (Negative) mg/dL Urine Ketones Trace (Negative) mg/dL Urine Blood Negative (Negative) Urine Nitrite Negative (Negative) Ur Leukocyte Esterase Small (1+) H (Negative) Urine RBC 0-2 (0-2) /HPF Urine WBC 6-10 H (0-5) /HPF Ur Squamous Epith Cells 6-10 (0-2) /HPF Urine Bacteria None Seen (None Seen) Hyaline Casts 11-20 (0-2) /LPF Urine Opiates Screen Not Detected (Not Detect) Urine Fentanyl Screen Not Detected (Not Detect) Ur Barbiturates Screen Not Detected (Not Detect) Ur Phencyclidine Scrn Not Detected (Not Detect) Ur Amphetamines Screen Not Detected (Not Detect) U Benzodiazepines Scrn Not Detected (Not Detect) Urine Cocaine Screen Not Detected (Not Detect) U Marijuana (THC) Screen POSITIVE H (Not Detect) Ethyl Alcohol < 10 mg/dL COVID-19 (JULISSA) Negative (Negative) COVID-19 Clin Com See Note Independent Interpretation I performed an independent interpretation of an: EKG Interpretation: Rate: 133 Rhythm: sinus tachycardia [place]: normal Normal P waves. Normal [place]. Normal QRS complex. ST T wave : normal no SARY qTC: normal prior studies: no acute ischemia The study has been interpreted contemporaneously by me. . Independent Historian Clinical information obtained from an independent historian. History obtained from or confirmed by: EMS External Record Review External record reviewed: Inpatient record Social Determinants Patient?s care significantly limited by Social Determinants of Health including: Problems related to primary support group Discharge Plan Discharge Clinical Impression: Acute anxiety Patient Disposition: Home, Self-Care Instructions: Anxiety (ED) Additional Instructions: you were negative for COVID. please return for any concerns. follow up with your providers. Prescriptions: No Action sennosides [senna] 8.6 mg tablet 8.6 mg PO BEDTIME 90 Days Qty: 90 1RF propranolol 160 mg capsule,extended release 24 hr 160 mg PO DAILY chlorpromazine 25 mg tablet 25 mg PO TID divalproex 500 mg tablet extended release 24 hr 1,000 mg PO BID docusate sodium 100 mg capsule 100 mg PO BID quetiapine 400 mg tablet 400 mg PO BID melatonin 5 mg Tablet 5 mg PO BEDTIME PRN (Reason: Sleep) guanfacine 4 mg tablet extended release 24 hr 4 mg PO DAILY lidocaine 5 % adhesive patch,medicated 1 patch topical DAILY Qty: 30 0RF Rx Instructions: leave on most painful area for up to 12 hrs doxycycline hyclate 100 mg tablet 100 mg PO BID 7 Days Qty: 14 0RF benzonatate 200 mg capsule 200 mg PO TID PRN (Reason: cough) Qty: 20 0RF ibuprofen 600 mg tablet 600 mg PO Q6H PRN (Reason: fever or pain) Qty: 30 0RF Interventions: [place]-Suicide Risk Severity Scale Last Done: 09/19/23 20:04
--- NOTE | 2023-09-19 19:58 | ECG_ITS ---
Test Reason : GENERAL MEDICAL Blood Pressure : / mmHG Vent. Rate : 133 BPM Atrial Rate : 133 BPM P-R Int : 142 ms QRS Dur : 084 ms QT Int : 300 ms P-R-T Axes : 044 004 043 degrees QTc Int : 446 ms Sinus tachycardia Minimal voltage criteria for LVH, may be normal variant ( R in aVL ) Borderline ECG When compared with ECG of 26-AUG-2023 22:34, Heart rate has increased Referred By: Sabrina Hoffmann Electronically Signed By:MAYKEL ANAYA MD
[2023-09-19 19:59] VITALS: BP 123/88; BP 132/74; PULSE 130; PULSE 140; RESP 16; TEMP 36.8; O2SAT 95; BMI 40.7
--- NOTE | 2023-09-19 20:08 | PC.NURSE ---
Pt aox4 resting at the bedside. No apparent distress noted. VSS besides HR 130. Endorses SI and HI with a plan I have a shank in my room . Denies visual or auditory hallucinations. Reports use of mushrooms, cocaine, and marijuana today and having covid. Headache, 09/06. Security at bedside to assist with foreign exchange services manager. 1:1 sitter at bedside. Pt is unable to provide urine sample at this time. Food and liquid provided to pt.
[2023-09-19 20:28] LABS: MANUAL DIFF FLAG NO
[2023-09-19 20:34] LABS: Basophils Percent Auto 0.2 % (0-2); Eosinophils Absolute Auto 0.2 X10*3/uL (0.0-0.4); Eosinophils Percent Auto 1.8 % (0-4); Hematocrit 43.4 % (42.0-52.0); Hemoglobin 13.6 g/dl (14.0-18.0); Imm Gran Abs Auto 0.03 X10*3/uL (0.00-0.03); Imm Gran Pct Auto 0.3 % (0.0-0.4); Lymphocytes Absolute Auto 2.5 X10*3/uL (1.2-4.9); Lymphocytes Percent Auto 26.5 % (20-40); Mean Corpuscular HGB Conc 31.3 g/dl (31.0-36.0); Mean Corpuscular Hemoglobin 27.4 pg (27.0-33.0); Mean Corpuscular Volume 87.5 fL (80.0-98.0); Mean Platelet Volume 10.4 fL (9.4-12.4); Monocytes Absolute Auto 0.5 X10*3/uL (0.1-1.2); Monocytes Percent Auto 5.5 % (2-11); Neutrophils Absolute Auto 6.3 x10*3/uL (2.0-8.3); Neutrophils Percent Auto 65.7 % (45-73); Platelet Count 273 X10*3/uL (160-400); Red Blood Count 4.96 X10*6/uL (4.60-5.80); Red Cell Distribution Width 14.3 % (11.0-16.0); White Blood Count 9.5 X10*3/uL (4.8-10.8)
[2023-09-19 20:44] LABS: Alanine Aminotransferase 58 U/L (0-40); Albumin Level 3.9 g/dL (3.5-5.0); Alkaline Phosphatase 94 U/L (39-117); Anion Gap 16 (12-20); Aspartate Amino Transferase 65 U/L (5-37); Bilirubin Total 0.4 mg/dL (0.0-1.0); Blood Urea Nitrogen 11 mg/dL (9-16); COVID-19 Test Negative (Negative); Calcium 10.3 mg/dL (8.4-10.2); Carbon Dioxide 25 mmol/L (22-29); Chloride 108 mmol/L (96-108); Estimated Glomerular Filt Rate > 60; Ethanol < 10 mg/dL; Glucose Random 115 mg/dL (60-115); IDNOW Serial# 9DB6401D; Potassium 3.7 mmol/L (3.3-5.1); Sodium 145 mmol/L (135-145); Total Protein 8.4 g/dL (6.5-8.0)
--- NOTE | 2023-09-19 21:25 | PC.NURSE ---
Pt reporting headache, 09/06. Medicated with Acetaminophen 650mg PO. Pt tolerated well.
[2023-09-19] MEDS: Acetaminophen 325 MG TABLET 650 MG PO (21:26)
--- NOTE | 2023-09-19 21:38 | MHC.CARE ---
CARE Team reaches out to warehouse and receiving supervisor of pt's prison. Plan is for staff to search pt's room for shanks. and call back the ED or care team with the results.
[2023-09-19 22:33] LABS: Appearance Urine Clear; Color Urine Dark Yellow; Glucose Urine UA Negative (Negative); Leukocyte Esterase Urine Small (1+) (Negative); Nitrite Urine Negative (Negative); PH 5.5 (5.0-9.0); Specific Gravity - Urine >= 1.030 (1.005-1.025); UMIC TRIGGER UA YES; Urine Blood Negative (Negative); Urine Ketones Trace mg/dL (Negative); Urine Protein 30 (1+) mg/dL (Neg-Trace)
[2023-09-19 22:40] LABS: Amphetamine Screen Urine Not Detected (Not Detect); Barbiturates, Urine Not Detected (Not Detect); Benzodiazepines Screen Urine Not Detected (Not Detect); Cannabinoid Screen Urine POSITIVE (Not Detect); Cocaine Screen Urine Not Detected (Not Detect); Fentanyl, urine Not Detected (Not Detect); Opiate Screen Urine Not Detected (Not Detect); Phencyclidine Screen Urine Not Detected (Not Detect)
--- NOTE | 2023-09-19 22:40 | MHC.CARE ---
Tk, erp programmer from nursing home calls and reports they found no sharps in pt's room.
[2023-09-19 22:45] LABS: Bacteria Urine None Seen (None Seen); RBC Urine 0-2 /HPF (0-2)
[2023-09-19 22:53] VITALS: BP 112/77; PULSE 105; RESP 16; TEMP 36.8; O2SAT 95
--- NOTE | 2023-09-19 23:00 | MHC.CARE ---
CARE Team is notified that pt reports having sharps under his bed. This is communicated to Tk group dynamics instructor who will follow up with retirement staff.
--- NOTE | 2023-09-19 23:13 | PC.NURSE ---
This RN spoke with Tk at the [facility] [phone]. This RN explained pt no longer qualifies for an ambulance transfer and will need to be picked up. Tk states I will call the program and see if I can get someone to pick him up. This RN requested a call back with pharmacy picking tech/transfer info.
== END 2023-09-19 23:50 | disposition home or self-care (01) ==
PROVIDERS: Emergency Provider Emergency Medicine
DX: F41.1 Generalized anxiety disorder (principal); F33.1 Major depressive disorder, recurrent, moderate; F63.81 Intermittent explosive disorder; R45.851 Suicidal ideations; R00.0 Tachycardia, unspecified; F43.0 Acute stress reaction; F14.10 Cocaine abuse, uncomplicated; F12.10 Cannabis abuse, uncomplicated; R45.850 Homicidal ideations; Z11.52 Encounter for screening for COVID-19; Z20.822 Contact with and (suspected) exposure to COVID-19; Z79.899 Other long term (current) drug therapy
CPT/HCPCS: 36415; 80053; 80307; 81001; 85025; 87635; 93005; 99285

== ENCOUNTER 2023-10-13 16:44 | Emergency (ER) | payer MEDICAID, OTHER, SELFPAY ==
[2023-10-13 16:58] VITALS: BP 131/65; PULSE 86; O2SAT 95
--- NOTE | 2023-10-13 17:00 | ED.GENADULT ---
HPI - General Adult General Chief complaint: Behavioral Concerns Stated complaint: CRISIS Time Seen by Provider: 10/13/23 16:54 Source: patient and EMS Mode of arrival: ambulatory History of Present Illness HPI narrative: 22-year-old male?XXY syndrome, developmental disability,?pseudoseizures, presenting to the emergency department from senior living?for homicidal ideaiton states he wants to go to a gun shop and kill people. Denies Precipitating event. Reports he was recently in [place] [facility] [place] and was released on tuesday. Denies hallucinations. Denies drugs, alcohol & tobacco. No medical complaints. Related Data Home Medications Medication Instructions Recorded Confirmed chlorpromazine 25 mg tablet 25 mg PO TID 06/27/23 07/25/23 divalproex 500 mg tablet,extended 1,000 mg PO BID 06/27/23 07/25/23 release 24 hr docusate sodium 100 mg capsule 100 mg PO BID 06/27/23 07/25/23 guanfacine 4 mg tablet,extended 4 mg PO DAILY 06/27/23 07/25/23 release 24 hr melatonin 5 mg tablet 5 mg PO BEDTIME PRN Sleep 06/27/23 07/25/23 propranolol 160 mg capsule,24 160 mg PO DAILY 06/27/23 07/25/23 hr,extended release quetiapine 400 mg tablet 400 mg PO BID 06/27/23 07/25/23 Previous Rx's Medication Instructions Recorded lidocaine 5 % topical patch 1 patch topical DAILY #30 ea 07/09/23 doxycycline hyclate 100 mg tablet 100 mg PO BID 7 days #14 tabs 07/22/23 sennosides 8.6 mg tablet (senna) 8.6 mg PO BEDTIME 90 days #90 tabs 08/09/23 benzonatate 200 mg capsule 200 mg PO TID PRN cough #20 caps 09/16/23 ibuprofen 600 mg tablet 600 mg PO Q6H PRN fever or pain 09/16/23 #30 tabs Allergies Allergy/AdvReac Type Severity Reaction Status Date / Time methylphenidate Allergy Unknown UNKNOWN Verified 10/13/23 17:00 [From RITALIN] shrimp [SHRIMP] Allergy Unknown HIVES Verified 10/13/23 17:00 haloperidol [From Haldol] Allergy Involuntary Verified 10/13/23 17:00 Spasms lactose Allergy Diarrhea Verified 10/13/23 17:00 Review of Systems Review of Systems: Constitutional : No Fever, No Chills ENT/Mouth : No Ear Pain, No Nasal Congestion, No sore throat Eyes: No Eye Pain, No Swelling, No Redness Cardiovascular : No Chest Pain, No SOB Respiratory : No Cough, No Sputum, No Dyspnea Gastrointestinal : No Nausea, No Vomiting, No Diarrhea, No Hematochezia, No Melena Genitourinary : No Dysuria, No Urinary Frequency, No Hematuria Musculoskeletal : No Myalgias Skin : No Skin Lesions, No rash Neuro : No Weakness, No Numbness, No Paresthesias, No Dizziness, No Headache Psych : positive Anxiety, No Depression, positive HI, No SI Heme/Lymph: No Lymphadenopathy Yes all other systems are reviewed and are negative [facility] Past Medical History Attestation statement: The following information was validated with the patient. Source: old records reviewed and nursing notes reviewed Medical History Intellectual developmental disorder, severe Dyspnea Adjustment disorder Seborrheic dermatitis Chronic abdominal pain Seizures XXYY syndrome Developmental disability Surgical History History of testicular surgery Family History Family History Father No problems noted. Mother Hypertension Diabetes Other History of brain cancer Social History Social History Household Members: Other Household Members Other:: senior living Housing: Other Do you presently have visiting nurse or other home services: No Alcohol intake: never Patient Tobacco Use Status: Never used Tobacco Tobacco use type: Cigarette Years Smoked: 16 years old e-Cigarette/Vaping Use: Never Used Second Hand Smoke Exposure: No Substance Use Type: Crack/Cocaine and Marijuana Advance Directives: No Advance Directives Information Provided: No service: No Current occupational status: disabled Cognitive needs: Yes Hearing needs: No Vision needs: No Physical Exam ED Vital Signs: Vital Signs - 24 hr 10/13/23 17:11 10/13/23 19:44 Temperature 97.5 F 98.3 F Pulse Rate 82 82 Respiratory Rate 18 16 Blood Pressure 116/65 134/72 Pulse Oximetry 96 96 Oxygen Delivery Method Room Air Room Air BMI result Body Mass Index 49.7 Vital signs stable Appearance: Alert.? Oriented X3.? No acute distress.? Head: Normocephalic, atraumatic, no step-offs or deformities Eyes: Pupils equal, round and reactive to light.? CVS: Normal heart rate and rhythm.? Pulses normal.? Respiratory: No respiratory distress.? Breath sounds normal.? Abdomen: Soft and nontender.? Skin: Skin warm and dry.? Normal skin color.? Normal skin turgor.? Extremities: No lower extremity edema.? No calf ttp. 5/5 strength to bilateral upper and lower extremities Neuro: Oriented X 3.? No motor deficit.? No sensory deficit. CN 2-12 intact Course Course Course Narrative: PLEASE REFER TO CARE TEAM NOTE ASWELL. Reevaluation(s) Reevaluation #1: CBC appears to be around patients baseline. Chemistry w/o acute findings requiring intervention. Salicylates/ acetaminophen negative. UA/tox pending. At time patient to be placed into observation to allow more time to be evaluated by the behavioral team. A time-out observation was started common cooperative no acute distress will continue to monitor. Time: 18:40 Reevaluation #2: Patient got upset when he was told that he was going to the pod, but latter appologized and said he just likes being in there and wanted us to know that. Seen by care team not meeting inpatient level of care. Kiera from care team speaking to patient calm and cooperative at this time. Lives at a senior living w/ close observation and frequent checkd on patient he denies si/hi at this times thinks hes just smoking to much marijuanna which is making him agitated. He tells me he didnt mean to say what he said earlier. He doesnt down or have a firearm at home. He also reports he thinks this was on his mind after watching a movie scarface last night. He feels calm and would like to return to senior living. Care team feels comfortable with this plan and so do I. Time: 20:27 Medical Decision Making Medical Decision Making [facility] Narrative: 1700 22 yo m presents w/ homicidal ideations w/ plan PE benign flat affect Likely developmental disability versus bipolar versus schizophrenia. Unlikely metabolic derangement Plan medical clearance evaluation by behavioral health team. For safety 1:1 ordered Differential Diagnosis Differential Diagnoses: The differential diagnosis associated with the presentation includes Likely developmental disability versus bipolar versus schizophrenia. Unlikely metabolic derangement Admission/Observation Consideration of admission/observation: Escalation of care including admission/observation considered possible Consult Healthcare Provider Management of the patient was discussed with: Stripping Machine Operator (CARE TEAM) Lab Data MDM Lab Attestation statement: I reviewed the patient's lab results. 10/13/23 17:42 10/13/23 17:42 Labs: Lab Results 10/13/23 10/13/23 Range/Units 17:42 18:40 WBC 8.5 (4.8-10.8) X10*3/uL RBC 4.64 (4.60-5.80) X10*6/uL Hgb 12.9 L (14.0-18.0) g/dl Hct 41.2 L (42.0-52.0) % MCV 88.8 (80.0-98.0) fL MCH 27.8 (27.0-33.0) pg MCHC 31.3 (31.0-36.0) g/dl RDW 14.7 (11.0-16.0) % Plt Count 205 (160-400) X10*3/uL MPV 9.5 (9.4-12.4) fL Immature Gran % (Auto) 0.4 (0.0-0.4) % Neut % (Auto) 42.0 L (45-73) % Lymph % (Auto) 37.9 (20-40) % Boundary % (Auto) 10.1 (2-11) % Eos % (Auto) 9.1 H (0-4) % Baso % (Auto) 0.5 (0-2) % Lymph # (Auto) 3.2 (1.2-4.9) X10*3/uL Boundary # (Auto) 0.9 (0.1-1.2) X10*3/uL Eos # (Auto) 0.8 H (0.0-0.4) X10*3/uL Baso # (Auto) 0.0 (0.0-0.2) X10*3/uL Abs Immat Gran (auto) 0.03 (0.00-0.03) X10*3/uL Absolute Neuts (auto) 3.6 (2.0-8.3) x10*3/uL Absolute Nucleated RBC 0.000 (0.0-0.012) X10*3/uL Nucleated RBC % (auto) 0.0 (0.0-0.2) /100WBC Sodium 143 (135-145) mmol/L Potassium 4.4 (3.3-5.1) mmol/L Chloride 105 (96-108) mmol/L Carbon Dioxide 30 H (22-29) mmol/L Anion Gap 12 (12-20) BUN 15 (9-16) mg/dL Creatinine 0.79 (0.5-1.4) mg/dL Estim Creat Clear Calc 257.4 Estimated GFR > 60 Random Glucose 95 (60-115) mg/dL Calcium 9.2 D (8.4-10.2) mg/dL Magnesium 2.0 (1.6-2.6) mg/dL Total Bilirubin 0.3 (0.0-1.0) mg/dL AST 51 H (5-37) U/L ALT 34 (0-40) U/L Alkaline Phosphatase 98 (39-117) U/L Total Protein 7.5 (6.5-8.0) g/dL Albumin 3.4 L (3.5-5.0) g/dL Salicylates < 5.0 L (15-30) mg/dL Urine Opiates Screen Not Detected (Not Detect) Urine Fentanyl Screen Not Detected (Not Detect) Acetaminophen < 3 (<30) mcg/mL Ur Barbiturates Screen Not Detected (Not Detect) Ur Phencyclidine Scrn Not Detected (Not Detect) Ur Amphetamines Screen Not Detected (Not Detect) U Benzodiazepines Scrn Not Detected (Not Detect) Urine Cocaine Screen Not Detected (Not Detect) U Marijuana (THC) Screen POSITIVE H (Not Detect) Critical Care Time Critical Care Time Critical Care Time: No Discharge Plan Discharge Clinical Impression: Developmental disability Patient Disposition: Home, Self-Care Additional Instructions: Take your medications as prescribed. If you were prescribed antibiotics today, it is important that you take your medication to their entirety, do not skip any doses, do not finish them early. Follow-up with your primary care provider this week. Return to the emergency department with new or worsening symptoms. suicidal/ homicidal ideations In case of emergency call 911 Prescriptions: No Action sennosides [senna] 8.6 mg tablet 8.6 mg PO BEDTIME 90 Days Qty: 90 1RF propranolol 160 mg capsule,extended release 24 hr 160 mg PO DAILY chlorpromazine 25 mg tablet 25 mg PO TID divalproex 500 mg tablet extended release 24 hr 1,000 mg PO BID docusate sodium 100 mg capsule 100 mg PO BID quetiapine 400 mg tablet 400 mg PO BID melatonin 5 mg Tablet 5 mg PO BEDTIME PRN (Reason: Sleep) guanfacine 4 mg tablet extended release 24 hr 4 mg PO DAILY lidocaine 5 % adhesive patch,medicated 1 patch topical DAILY Qty: 30 0RF Rx Instructions: leave on most painful area for up to 12 hrs doxycycline hyclate 100 mg tablet 100 mg PO BID 7 Days Qty: 14 0RF benzonatate 200 mg capsule 200 mg PO TID PRN (Reason: cough) Qty: 20 0RF ibuprofen 600 mg tablet 600 mg PO Q6H PRN (Reason: fever or pain) Qty: 30 0RF Referrals: Physician,Unknown J [Primary Care Provider] - 2 days
[2023-10-13 17:11] VITALS: BP 116/65; PULSE 82; RESP 18; TEMP 36.4; O2SAT 96; BMI 49.7
[2023-10-13 17:48] LABS: MANUAL DIFF FLAG NO
[2023-10-13 17:49] LABS: Basophils Percent Auto 0.5 % (0-2); Eosinophils Absolute Auto 0.8 X10*3/uL (0.0-0.4); Eosinophils Percent Auto 9.1 % (0-4); Hematocrit 41.2 % (42.0-52.0); Hemoglobin 12.9 g/dl (14.0-18.0); Imm Gran Abs Auto 0.03 X10*3/uL (0.00-0.03); Imm Gran Pct Auto 0.4 % (0.0-0.4); Lymphocytes Absolute Auto 3.2 X10*3/uL (1.2-4.9); Lymphocytes Percent Auto 37.9 % (20-40); Mean Corpuscular HGB Conc 31.3 g/dl (31.0-36.0); Mean Corpuscular Hemoglobin 27.8 pg (27.0-33.0); Mean Corpuscular Volume 88.8 fL (80.0-98.0); Mean Platelet Volume 9.5 fL (9.4-12.4); Monocytes Absolute Auto 0.9 X10*3/uL (0.1-1.2); Monocytes Percent Auto 10.1 % (2-11); Neutrophils Absolute Auto 3.6 x10*3/uL (2.0-8.3); Platelet Count 205 X10*3/uL (160-400); Red Blood Count 4.64 X10*6/uL (4.60-5.80); Red Cell Distribution Width 14.7 % (11.0-16.0); White Blood Count 8.5 X10*3/uL (4.8-10.8)
[2023-10-13 18:11] LABS: Alanine Aminotransferase 34 U/L (0-40); Albumin Level 3.4 g/dL (3.5-5.0); Alkaline Phosphatase 98 U/L (39-117); Anion Gap 12 (12-20); Aspartate Amino Transferase 51 U/L (5-37); Blood Urea Nitrogen 15 mg/dL (9-16); Calcium 9.2 mg/dL (8.4-10.2); Carbon Dioxide 30 mmol/L (22-29); Chloride 105 mmol/L (96-108); Creatinine Clr Calc Pharmacy 257.4; Estimated Glomerular Filt Rate > 60; Glucose Random 95 mg/dL (60-115); Potassium 4.4 mmol/L (3.3-5.1); Sodium 143 mmol/L (135-145); Total Protein 7.5 g/dL (6.5-8.0)
[2023-10-13 18:20] LABS: Bilirubin Total 0.3 mg/dL (0.0-1.0)
[2023-10-13 18:31] LABS: Acetaminophen LAB < 3 mcg/mL (<30); Salicylate < 5.0 mg/dL (15-30)
[2023-10-13 18:54] LABS: Amphetamine Screen Urine Not Detected (Not Detect); Barbiturates, Urine Not Detected (Not Detect); Benzodiazepines Screen Urine Not Detected (Not Detect); Cannabinoid Screen Urine POSITIVE (Not Detect); Cocaine Screen Urine Not Detected (Not Detect); Fentanyl, urine Not Detected (Not Detect); Opiate Screen Urine Not Detected (Not Detect); Phencyclidine Screen Urine Not Detected (Not Detect)
[2023-10-13 19:44] VITALS: BP 134/72; PULSE 82; RESP 16; TEMP 36.8; O2SAT 96
== END 2023-10-13 21:09 | disposition home or self-care (01) ==
PROVIDERS: Physician Assistant; Emergency Provider Emergency Medicine
DX: R45.850 Homicidal ideations (principal); F29 Unspecified psychosis not due to a substance or known physiological condition; Z79.899 Other long term (current) drug therapy
CPT/HCPCS: 36415; 80053; 80143; 80179; 80307; 83735; 85025; 99283; 99285; S9485

== ENCOUNTER 2023-11-26 16:40 | Emergency (ER) | payer MEDICAID, SELFPAY ==
--- NOTE | 2023-11-26 16:54 | ED_ITS ---
HPI - General Adult General Chief complaint: Psychiatric Symptoms Stated complaint: SI/HI Time Seen by Provider: 11/26/23 16:53 Source: patient, EMS, RN notes reviewed and old records reviewed Mode of arrival: EMS Limitations: no limitations History of Present Illness HPI narrative: 22-year-old male with past medical history of XXY syndrome, developmental disability, pseudoseizures script is presenting to the emergency department from skilled nursing. Patient threaten staff that he will hurt himself and hurt others. Patient was found to carry a bag with white powder. Patient states that it was sugar. Upon evaluation patient is cooperative. Answers questions appropriately. Patient denies HI or SI while in the ER and wants to get back to skilled nursing. Spoke with care. Patient has care plan in place. Patient lives in a skilled nursing with close observation and frequent checks. Related Data Home Medications Medication Instructions Recorded Confirmed chlorpromazine 25 mg tablet 25 mg PO TID 06/27/23 07/25/23 divalproex 500 mg tablet,extended 1,000 mg PO BID 06/27/23 07/25/23 release 24 hr docusate sodium 100 mg capsule 100 mg PO BID 06/27/23 07/25/23 guanfacine 4 mg tablet,extended 4 mg PO DAILY 06/27/23 07/25/23 release 24 hr melatonin 5 mg tablet 5 mg PO BEDTIME PRN Sleep 06/27/23 07/25/23 propranolol 160 mg capsule,24 160 mg PO DAILY 06/27/23 07/25/23 hr,extended release quetiapine 400 mg tablet 400 mg PO BID 06/27/23 07/25/23 Previous Rx's Medication Instructions Recorded lidocaine 5 % topical patch 1 patch topical DAILY #30 ea 07/09/23 doxycycline hyclate 100 mg tablet 100 mg PO BID 7 days #14 tabs 07/22/23 sennosides 8.6 mg tablet (senna) 8.6 mg PO BEDTIME 90 days #90 tabs 08/09/23 benzonatate 200 mg capsule 200 mg PO TID PRN cough #20 caps 09/16/23 ibuprofen 600 mg tablet 600 mg PO Q6H PRN fever or pain 09/16/23 #30 tabs Allergies Allergy/AdvReac Type Severity Reaction Status Date / Time methylphenidate Allergy Unknown UNKNOWN Verified 10/13/23 17:00 [From RITALIN] shrimp [SHRIMP] Allergy Unknown HIVES Verified 10/13/23 17:00 haloperidol [From Haldol] Allergy Involuntary Verified 10/13/23 17:00 Spasms lactose Allergy Diarrhea Verified 10/13/23 17:00 Review of Systems Constitutional: Constitutional: Denies weight gain and Denies weight loss ENT: Reports system reviewed and no additional complaints, except as documented, Denies dysphagia and Denies odynophagia Cardiovascular: Cardiovascular: Reports no additional cardiovascular complaints Respiratory: Respiratory: Reports no additional respiratory complaints Gastrointestinal: Gastrointestinal: Denies abdominal pain, Denies belching, Denies melena, Denies bloating, Denies change in bowel habits, Denies dysphagia, Denies excessive flatus, Denies dyspepsia, Denies heartburn, Denies diarrhea, Denies loose stools, Denies nausea, Denies odynophagia and Denies vomiting Genitourinary: Genitourinary: Reports no additional male genitourinary complaints Musculoskeletal: Musculoskeletal: Reports no additional musculoskeletal complaints Neurologic: Reports system reviewed and no additional complaints, except as documented Psychiatric: Psychiatric: Reports no additional psychiatric complaints Endocrine: Endocrine: Reports no additional endocrine complaints PMFSH Past Medical History Medical History Intellectual developmental disorder, severe Dyspnea Adjustment disorder Seborrheic dermatitis Chronic abdominal pain Seizures XXYY syndrome Developmental disability Surgical History History of testicular surgery Family History Family History Father No problems noted. Mother Hypertension Diabetes Other History of brain cancer Social History Social History Household Members: Other Household Members Other:: skilled nursing Housing: Other Do you presently have visiting nurse or other home services: No Alcohol intake: former Comment: sitter Patient Tobacco Use Status: Never used Tobacco Tobacco use type: Cigarette Years Smoked: 16 years old Smoked in Last 30 Days: No e-Cigarette/Vaping Use: Never Used Second Hand Smoke Exposure: No Use of substances other than those prescribed or required for medical reasons: Yes Substance Use Type: Marijuana Advance Directives: No Advance Directives Information Provided: Yes service: No Current occupational status: disabled Cognitive needs: Yes Hearing needs: No Vision needs: No Physical Exam ED Vital Signs: Vital Signs - 24 hr 11/26/23 17:00 Pulse Rate 96 Respiratory Rate 20 Blood Pressure 125/81 Pulse Oximetry 95 Oxygen Delivery Method Room Air BMI result Body Mass Index 37.5 Const General: no acute distress and well developed Orientation/consciousness: patient oriented x3 Resp Effort & Inspection: normal respiratory effort, able to speak in complete sentences, no tracheal deviation and symmetric chest movement Auscultation: clear to auscultation bilaterally Cardio Rate: regular rate GI Inspection: Yes normal to inspection Auscultation: normal bowel sounds General: Yes no CVA tenderness Back/Spine/Pelvis Back: no CVA tenderness Skin General skin exam: elasticity normal, turgor normal and dry skin Neuro General: patient oriented x3 Psych Appearance: grossly normal Mental Status: mental status grossly normal Course Course Course Narrative: 22-year-old male with past medical history of XXY syndrome, developmental disability, pseudoseizures script is presenting to the emergency department from skilled nursing. Patient threaten staff that he will hurt himself and hurt others. Patient was found to carry a bag with white powder. Patient states that it was sugar. Upon evaluation patient is cooperative. Answers questions appropriately. Patient denies HI or SI while in the ER and wants to get back to skilled nursing. Spoke with care team. Patient has care plan in place. Patient lives in a skilled nursing with close observation and frequent checks. Patient's RN at the bedside as well as sitter. He is cooperative, patient will eat dinner and will be sent back to skilled nursing. Discharge Plan Discharge Clinical Impression: Adjustment disorder Qualifiers: Adjustment disorder type: with mixed disturbance of emotions and conduct Qualified Code(s): F43.25 - Adjustment disorder with mixed disturbance of emotions and conduct Patient Disposition: Home, Self-Care Instructions: Suicide Prevention (ED) Additional Instructions: Take you medications as prescribed. Follow-up with your primary care provider. Return to emergency department with new or worsening symptoms, SI, HI. Call 911 in case of emergency. Prescriptions: No Action sennosides [senna] 8.6 mg tablet 8.6 mg PO BEDTIME 90 Days Qty: 90 1RF propranolol 160 mg capsule,extended release 24 hr 160 mg PO DAILY chlorpromazine 25 mg tablet 25 mg PO TID divalproex 500 mg tablet extended release 24 hr 1,000 mg PO BID docusate sodium 100 mg capsule 100 mg PO BID quetiapine 400 mg tablet 400 mg PO BID melatonin 5 mg Tablet 5 mg PO BEDTIME PRN (Reason: Sleep) guanfacine 4 mg tablet extended release 24 hr 4 mg PO DAILY lidocaine 5 % adhesive patch,medicated 1 patch topical DAILY Qty: 30 0RF Rx Instructions: leave on most painful area for up to 12 hrs doxycycline hyclate 100 mg tablet 100 mg PO BID 7 Days Qty: 14 0RF benzonatate 200 mg capsule 200 mg PO TID PRN (Reason: cough) Qty: 20 0RF ibuprofen 600 mg tablet 600 mg PO Q6H PRN (Reason: fever or pain) Qty: 30 0RF Interventions: [place]-Suicide Risk Severity Scale Last Done: 11/26/23 17:04 ED Discharge Assessment Last Done: 11/26/23 19:12 Discharge Date/Time: 11/26/23 19:28
[2023-11-26 17:00] VITALS: BP 125/81; BP 158/88; PULSE 103; PULSE 96; RESP 20; O2SAT 95; O2SAT 96; BMI 37.5
--- NOTE | 2023-11-26 17:05 | PC.NURSE ---
Patient from care home with reports of wanting to kill everyone including himself Denies pain. Reports uses vape- when asked what is in vape patient states maybe marijuana. Changed over into hospital with security
--- NOTE | 2023-11-26 17:38 | PC.NURSE ---
pt was changed over by security, belonings stored in locker 8. pt gave this nurse a marijuana vape, vape as given to security to be stored with rest of pt belongings
--- NOTE | 2023-11-26 17:55 | PC.NURSE ---
this nurse accompanied DISTRICT RECRUITER Annita to interview pt. pt now denies HI/SI. stated that he doesn't want to hurt anyone, and [he] will be fine when asked if her would like to go back to jail, he stated that he would.
--- NOTE | 2023-11-26 18:40 | PC.NURSE ---
spoke with [facility] staff member Rohit [phone] stated that HI/SI has been documented at facility. advised that pt is medically cleared at this point and is ready for discharge. Rohit sts that he does not have staff to come get pt as they feel threatened by him. spoke with care team, okay to transport back to facility via EMS.
--- NOTE | 2023-11-26 18:43 | PC.NURSE ---
spoke with [facility] staff member, Rohit again advised pt will be transported back to facility via - Rohit understands. US to book transport
[2023-11-26 19:18] VITALS: BP 129/69; PULSE 91; RESP 18; O2SAT 97
--- NOTE | 2023-11-26 19:26 | PC.NURSE ---
pt d/c'd via [facility] called care home staff benjamin Sommer [phone]
== END 2023-11-26 19:28 | disposition home or self-care (01) ==
PROVIDERS: Emergency Provider Emergency Medicine
DX: F43.25 Adjustment disorder with mixed disturbance of emotions and conduct (principal); Q98.0 Klinefelter syndrome karyotype 47, XXY; R45.851 Suicidal ideations; Z79.899 Other long term (current) drug therapy
CPT/HCPCS: 99284; 99285

== ENCOUNTER 2023-12-02 19:17 | Emergency (ER) | payer MEDICAID, SELFPAY ==
[2023-12-02 19:30] VITALS: BP 124/84; PULSE 94
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
[2023-12-02 19:35] VITALS: BMI 29.6
[2023-12-02 19:46] VITALS: BP 97/62; PULSE 92; RESP 22; TEMP 36.1; O2SAT 96
--- NOTE | 2023-12-02 20:03 | PC.NURSE ---
Pt A&Ox4, calm and cooperative, requested and given two milks, one PBJ sandwich and 3 chocolate ice creams.
--- NOTE | 2023-12-02 20:04 | PC.NURSE ---
Lito Carranza called for transport paper work, T/W spoke to Migdalia who will fax paperwork.
== END 2023-12-02 23:45 | disposition home or self-care (01) ==
PROVIDERS: Emergency Provider Emergency Medicine
DX: R56.9 Unspecified convulsions (principal); F41.1 Generalized anxiety disorder; F43.0 Acute stress reaction
CPT/HCPCS: 99284

== ENCOUNTER 2023-12-04 16:45 | Emergency (ER) | payer MEDICAID, SELFPAY ==
[2023-12-04 16:57] VITALS: BP 147/75; PULSE 94; RESP 18; TEMP 36.3; O2SAT 94; BMI 53.1
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
--- NOTE | 2023-12-04 17:24 | PC.NURSE ---
labs obtained/sent to lab.
--- NOTE | 2023-12-04 18:43 | PC.NURSE ---
pt currently asleep at this time. resting comfortably in stretcher in no apparent distress. respirations even and unlabored. program worker remains bedside. seizure pads in place as precaution.
[2023-12-04 18:44] VITALS: RESP 14
--- NOTE | 2023-12-04 19:08 | PC.NURSE ---
report received and care assumed. Pt noted to be resting comfortably on his left side with respirations even and unlabored and not distress noted. Pt has a program staff member at bedside. RN will continue to monitor.
[2023-12-04 21:36] VITALS: BP 110/60; PULSE 95; RESP 18; TEMP 37; O2SAT 96
--- NOTE | 2023-12-04 21:51 | PC.NURSE ---
RN spoke with Kim lagunas nurse from [facility] to answer questions and make her aware of plan for discharge back to the facility via EMS. Nurse requesting that RN make her aware as soon as we know EMS' arrival to the ED
--- NOTE | 2023-12-04 21:57 | MHC.EDTECH ---
[facility] booked at 2157.
== END 2023-12-04 22:48 | disposition other institution (70) ==
PROVIDERS: Emergency Provider Student in an Organized Health Care Education/Training Program
DX: R56.9 Unspecified convulsions (principal); R40.4 Transient alteration of awareness; Q98.0 Klinefelter syndrome karyotype 47, XXY; R42 Dizziness and giddiness; Z11.52 Encounter for screening for COVID-19; Z20.828 Contact with and (suspected) exposure to other viral communicable diseases; Z79.899 Other long term (current) drug therapy
CPT/HCPCS: 0241U; 36415; 80053; 80164; 80307; 85025; 99284

== ENCOUNTER 2023-12-20 18:09 | Emergency (ER) | payer MEDICAID, SELFPAY ==
--- NOTE | ~2023-12-20 | CT_ITS ---
EXAMINATION: CT CERVICAL SPINE WITHOUT CONTRAST CLINICAL INFORMATION: Fall. Pain. COMPARISON: Previous cervical spine CT May 2022 TECHNIQUE: Axial images through the cervical spine without contrast. Sagittal and coronal reconstructions on the technologist workstation were performed. This CT examination was performed using dose optimization techniques as appropriate, variously including the following: *Automated exposure control *Adjustment of mA and/or kV according to patient size (this includes techniques or standardized protocols for targeted exams where dose is matched to indication/reason for exam; i.e. extremities or head) *Use of iterative reconstruction technique DLP: 620 mGy-cm FINDINGS: Evaluation of the lower cervical and upper thoracic spine is limited due to motion. Bone alignment is normal. No fracture or dislocation. Normal disc spaces. Normal soft tissues. CT/CT cervical spine wo IV con IMPRESSION: Limited evaluation of the lower cervical and upper thoracic spine. No fracture seen. Fleischner guidelines were followed.
--- NOTE | ~2023-12-20 | CT_ITS ---
EXAMINATION: CT HEAD WITHOUT CONTRAST CLINICAL INFORMATION: Fall COMPARISON: Previous head CT most recent July 2022 TECHNIQUE: Contiguous axial imaging was performed from the skull base to vertex without intravenous administration of contrast. This CT examination was performed using dose optimization techniques as appropriate, variously including the following: *Automated exposure control *Adjustment of mA and/or kV according to patient size (this includes techniques or standardized protocols for targeted exams where dose is matched to indication/reason for exam; i.e. extremities or head) *Use of iterative reconstruction technique DLP: 122 mGy-cm FINDINGS: There is no evidence of an extra-axial collection. There is no evidence of intra or extra-axial hemorrhage. The ventricles and extra-axial CSF spaces are appropriate. Katz-white matter differentiation is normal. No mass, mass effect or infarct. No skull fracture. Soft tissue swelling over the right frontal bone. Visualized paranasal sinuses, mastoid air cells and middle ears are clear. CT/CT head/brain wo IV con IMPRESSION: No acute intracranial findings.
--- NOTE | ~2023-12-20 | XR_ITS ---
EXAMINATION: XR CHEST CLINICAL INFORMATION: Weakness COMPARISON: 07/09/2023 TECHNIQUE: Frontal view of the chest was obtained. FINDINGS: Aside from hypoventilation and poor lung expansion, no significant abnormality is noted involving the heart, lungs, mediastinum, bony thorax or soft tissues. XR/XR chest 1V IMPRESSION: Unremarkable examination.
--- NOTE | 2023-12-20 18:35 | ECG_ITS ---
Test Reason : PAIN Blood Pressure : / mmHG Vent. Rate : 087 BPM Atrial Rate : 087 BPM P-R Int : 150 ms QRS Dur : 086 ms QT Int : 360 ms P-R-T Axes : 039 018 028 degrees QTc Int : 433 ms Normal sinus rhythm Normal ECG When compared with ECG of 19-SEP-2023 20:02, Vent. rate has decreased BY 46 BPM Referred By: Kenneth Olmedo Electronically Signed By:Zaki Graham
[2023-12-20 18:38] VITALS: BP 117/70; BP 131/86; PULSE 87; PULSE 90; RESP 22; TEMP 36.5; O2SAT 95; BMI 60.0
--- NOTE | 2023-12-20 18:46 | ED.GENADULT ---
HPI - General Adult General Chief complaint: Syncope Stated complaint: UNRESPONSIVE,WIT BY STAFF, NOW RESPONSIVE W/EMS Time Seen by Provider: 12/20/23 18:20 Source: patient, RN notes reviewed, old records reviewed and other (detention staff) Mode of arrival: EMS Limitations: other (Patient is a poor historian) History of Present Illness HPI narrative: 23-year-old male with past medical history significant for developmental delay, XXY syndrome, obstructive sleep apnea, adjustment disorder, pseudoseizures presents for evaluation of a reported syncopal episode. Per correction staff, the patient received his normal medications around 430 in the afternoon. He has not had any recent medication changes. About an hour later the patient became ?wobbly from [id number] and then blacked out and fell to the ground. He was assisted to the ground by correction staff who were present. The patient was apparently ?unresponsive for about 10 minutes. ? He had his blood sugar checked twice and his blood pressure checked several times which appeared labile to them He complains of neck pain but has no other complaints. At the time my evaluation, the patient is quite sedated but is answering questions appropriately Related Data Home Medications Medication Instructions Recorded Confirmed guanfacine 4 mg tablet,extended 4 mg PO BEDTIME 06/27/23 12/20/23 release 24 hr propranolol 160 mg capsule,24 160 mg PO DAILY 06/27/23 12/20/23 hr,extended release quetiapine 400 mg tablet 400 mg PO BID 06/27/23 12/20/23 acetaminophen 325 mg tablet 650 mg PO Q6H PRN Mild Pain (Scale 12/20/23 12/20/23 Score 1-4) bisacodyl 5 mg tablet 10 mg PO DAILY PRN Constipation 12/20/23 12/20/23 chlorpromazine 100 mg tablet 100 mg PO TID 12/20/23 12/20/23 divalproex 250 mg tablet,delayed 250 mg PO BEDTIME 12/20/23 12/20/23 release divalproex 500 mg tablet,delayed 1,000 mg PO BEDTIME 12/20/23 12/20/23 release divalproex 500 mg tablet,delayed 1,000 mg PO DAILY 12/20/23 12/20/23 release gabapentin 400 mg capsule 400 mg PO TID 12/20/23 12/20/23 hydroxyzine HCl 50 mg tablet 50 mg PO Q6H PRN restlessness 12/20/23 12/20/23 lorazepam 1 mg tablet 1 mg PO TID PRN Agitation 12/20/23 12/20/23 lorazepam 1 mg tablet (Ativan) 1 mg PO TID 12/20/23 12/20/23 Previous Rx's Medication Instructions Recorded sennosides 8.6 mg tablet (senna) 8.6 mg PO BEDTIME 90 days #90 tabs 08/09/23 Allergies Allergy/AdvReac Type Severity Reaction Status Date / Time methylphenidate Allergy Unknown UNKNOWN Verified 12/21/23 05:53 [From RITALIN] shrimp [SHRIMP] Allergy Unknown HIVES Verified 12/21/23 05:53 haloperidol [From Haldol] Allergy Involuntary Verified 12/21/23 05:53 Spasms lactose Allergy Diarrhea Verified 12/21/23 05:53 Review of Systems Constitutional: Constitutional: Denies fever(s), Denies frequent falls and Denies headache(s) ENT: Denies headache(s) and Reports neck pain Cardiovascular: Cardiovascular: Denies chest pain, Reports syncope and Denies dyspnea Respiratory: Respiratory: Denies cough and Denies dyspnea Gastrointestinal: Gastrointestinal: Denies abdominal pain, Denies nausea and Denies vomiting Musculoskeletal: Musculoskeletal: Denies back pain and Reports neck pain Neurologic: Reports syncope, Denies frequent falls and Denies headache(s) [facility] Past Medical History Medical History Intellectual developmental disorder, severe Dyspnea Adjustment disorder Seborrheic dermatitis Chronic abdominal pain Seizures XXYY syndrome Developmental disability Surgical History History of testicular surgery Family History Family History Father No problems noted. 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 Patient Tobacco Use Status: Never used Tobacco Tobacco use type: Cigarette Years Smoked: 16 years old Smoked in Last 30 Days: No e-Cigarette/Vaping Use: Never Used Second Hand Smoke Exposure: No Use of substances other than those prescribed or required for medical reasons: No Substance Use Type: Marijuana Advance Directives: No Advance Directives Information Provided: No service: No Current occupational status: disabled Cognitive needs: Yes Hearing needs: No Vision needs: No Physical Exam ED Vital Signs: Vital Signs - 24 hr 12/20/23 18:38 12/20/23 19:17 12/20/23 22:44 Temperature 97.7 F 97.5 F 97.5 F Pulse Rate 87 85 84 Respiratory Rate 22 H 16 16 Blood Pressure 117/70 131/66 127/63 Pulse Oximetry 95 96 92 Oxygen Delivery Method Nasal Cannula Room Air Nasal Cannula Room Air Nasal Cannula Oxygen Flow Rate 2 2 12/21/23 02:48 12/21/23 04:00 12/21/23 06:00 Temperature 97.9 F Pulse Rate 88 78 74 Respiratory Rate 18 18 18 Blood Pressure 113/57 L 130/64 133/63 Pulse Oximetry 91 L 93 94 Oxygen Delivery Method Room Air Room Air Oxygen Flow Rate BMI result Body Mass Index 60.0 Const Other: Patient is quite lethargic. He does awaken to verbal stimuli will answer questions appropriately but then dozes back to sleep. General: cooperative, healthy appearing, comfortable, no acute distress and alert; No awake Nutritional Appearance: well nourished and obese Orientation/consciousness: patient oriented x3 HENMT Head: Yes normocephalic and Yes atraumatic Eyes Eyelids: Yes eyelids normal Conjunctivae: conjunctivae normal Sclerae: sclerae normal Corneas: corneas normal Pupils: Equal, round and reactive pupils present EOM: EOMs intact bilaterally Resp Effort & Inspection: normal respiratory effort, able to speak in complete sentences and not labored GI Inspection: No distended Palpation (GI): Soft to palpation, not firm, nontender and not rigid Skin Other: Patient has seborrheic dermatitis to the forehead and chin General skin exam: elasticity normal Neuro Other: No focal weakness, the patient does have global, 3/5 weakness to all major muscle groups. General: patient oriented x3 Cranial nerves: Yes Equal, round and reactive pupils present and Yes Bilaterally intact EOM present Cognition (Neuro): normal cognition Extrem Other: Moving all extremities well without any obvious deformities Course Reevaluation(s) Reevaluation #1: Patient's workup including x-ray, EKG, labs, CT imaging unremarkable. Patient's oxygen saturation has maintained above 92% on room air. Patient is PERC negative. He is stable for discharge at this time. He is awake, and oriented, continuing to answer questions appropriately but will not stay awake for the entire conversation. Time: 23:28 Reevaluation #2: Nursing attempted to call a nurse jumamaxim to discharge the patient back to [facility] where he has been staying for over a month. Nursing was informed that they could not take the patient back today and asked that I discuss with their on-call psychiatrist, Dr. Reich. I called to discuss with Dr. Reich who was under the impression the patient would be sent to [facility] and not [facility]. Apparently [facility] is associated with [facility] and they were expecting him to be admitted psychiatrically. Since the patient has been in the ED, he has been calm, cooperative, he has not been agitated. He is not depressed or suicidal. I will discuss with the care team, because the patient is medically cleared and I do not see any indication to admit the patient psychiatrically at this time. The patient is well known to this ER and appears to be at his psychiatric baseline. Dr Reich Time: 23:56 Reevaluation #3: Discussed with Dr. Reich again. They are adamant and refusing to take the patient back tonight because ?we are not equipped to handle him. Despite the fact that the patient has been living there for over 1 month, they refusing to take the patient back at [facility]. Dr. Reich requested that I put in a psychiatric consult for the morning and he will try to get his medical assisting instructor to work on outcome tomorrow morning. Again, the patient is medically cleared, he is not suicidal and is thus far not been as soon at all. A psychiatric consult was placed Time: 00:59 Medical Decision Making Medical Decision Making MDM Narrative: 23-year-old male as documented above presents for evaluation after a witnessed syncopal episode by correction staff the patient does have a history of pseudoseizures. At the time my evaluation, his vital signs are stable. He has no focal deficits but is globally weak and somewhat lethargic. Plan for syncopal workup including labs, EKG, imaging. It is possible the patient is simply over-sedated, however per correction staff there have been no recent changes to his medications Differential Diagnosis Differential Diagnoses: The differential diagnosis associated with the presentation includes Syncope Pseudo-seizure Over-sedation Substance abuse Orthostatic hypotension Lab Data MDM Lab Attestation statement: I reviewed the patient's lab results. No leukocytosis or significant anemia. No electrolyte abnormalities. Troponin negative x2. 12/20/23 20:01 12/20/23 20:01 Labs: Lab Results 12/20/23 12/20/23 Range/Units 20:01 22:28 WBC 9.8 (4.8-10.8) X10*3/uL RBC 4.58 L (4.60-5.80) X10*6/uL Hgb 12.9 L (14.0-18.0) g/dl Hct 40.6 L (42.0-52.0) % MCV 88.6 (80.0-98.0) fL MCH 28.2 (27.0-33.0) pg MCHC 31.8 (31.0-36.0) g/dl RDW 14.7 (11.0-16.0) % Plt Count 194 (160-400) X10*3/uL MPV 9.3 L (9.4-12.4) fL Immature Gran % (Auto) 0.3 (0.0-0.4) % Neut % (Auto) 43.7 L (45-73) % Lymph % (Auto) 33.3 (20-40) % Gray % (Auto) 13.2 H (2-11) % Eos % (Auto) 9.2 H (0-4) % Baso % (Auto) 0.3 (0-2) % Lymph # (Auto) 3.3 (1.2-4.9) X10*3/uL Gray # (Auto) 1.3 H (0.1-1.2) X10*3/uL Eos # (Auto) 0.9 H (0.0-0.4) X10*3/uL Baso # (Auto) 0.0 (0.0-0.2) X10*3/uL Abs Immat Gran (auto) 0.03 (0.00-0.03) X10*3/uL Absolute Neuts (auto) 4.3 (2.0-8.3) x10*3/uL Absolute Nucleated RBC 0.000 (0.0-0.012) X10*3/uL Nucleated RBC % (auto) 0.0 (0.0-0.2) /100WBC Sodium 140 (135-145) mmol/L Potassium 4.3 (3.3-5.1) mmol/L Chloride 105 (96-108) mmol/L Carbon Dioxide 27 (22-29) mmol/L Anion Gap 12 (12-20) BUN 16 (9-16) mg/dL Creatinine 0.86 (0.5-1.4) mg/dL Estim Creat Clear Calc 255.9 Estimated GFR > 60 Random Glucose 99 (60-115) mg/dL Calcium 9.2 (8.4-10.2) mg/dL Total Bilirubin 0.2 (0.0-1.0) mg/dL AST 43 H (5-37) U/L ALT 30 (0-40) U/L Alkaline Phosphatase 93 (39-117) U/L Troponin I High Sens < 2.7 < 2.7 (<3.5-35.0) ng/L Total Protein 7.7 (6.5-8.0) g/dL Albumin 3.3 L (3.5-5.0) g/dL Lipase 41 (8-78) U/L Urine Opiates Screen Not Detected (Not Detect) Urine Fentanyl Screen Not Detected (Not Detect) Ur Barbiturates Screen Not Detected (Not Detect) Ur Phencyclidine Scrn Not Detected (Not Detect) Ur Amphetamines Screen Not Detected (Not Detect) U Benzodiazepines Scrn Not Detected (Not Detect) Urine Cocaine Screen Not Detected (Not Detect) U Marijuana (THC) Screen POSITIVE H (Not Detect) Ethyl Alcohol < 10 mg/dL Independent Interpretation I performed an independent interpretation of an: Plain X-Ray Discharge Plan Discharge Clinical Impression: Syncope Patient Disposition: Still a Patient Instructions: Syncope (ED) Additional Instructions: Your workup in the emergency room today was reassuring. This includes your CT imaging, chest x-ray, EKG, blood work It is likely that you were over-sedated on arrival to the ED Follow-up with your primary doctor Return for new or worsening symptoms Prescriptions: No Action sennosides [senna] 8.6 mg tablet 8.6 mg PO BEDTIME 90 Days Qty: 90 1RF propranolol 160 mg capsule,extended release 24 hr 160 mg PO DAILY quetiapine 400 mg tablet 400 mg PO BID guanfacine 4 mg tablet extended release 24 hr 4 mg PO BEDTIME acetaminophen 325 mg Tablet 650 mg PO Q6H PRN (Reason: Mild Pain (Scale Score 1-4)) divalproex 250 mg Tablet,Delayed Release (Dr/Ec) 250 mg PO BEDTIME Rx Instructions: total bedtime dose = 1250 mg chlorpromazine [Thorazine] 100 mg Tablet 100 mg PO TID Rx Instructions: HOLD IF OVERLY SEDATED gabapentin 400 mg Capsule 400 mg PO TID hydroxyzine HCl 50 mg Tablet 50 mg PO Q6H PRN (Reason: restlessness) divalproex 500 mg Tablet,Delayed Release (Dr/Ec) 1,000 mg PO DAILY divalproex 500 mg tablet,delayed release (DR/EC) 1,000 mg PO BEDTIME Rx Instructions: total bedtime dose = 1250 mg lorazepam [Ativan] 1 mg Tablet 1 mg PO TID Rx Instructions: hold if overly sedated lorazepam 1 mg Tablet 1 mg PO TID PRN (Reason: Agitation) bisacodyl 5 mg Tablet 10 mg PO DAILY PRN (Reason: Constipation)
[2023-12-20 19:17] VITALS: BP 131/66; PULSE 85; RESP 16; TEMP 36.4; O2SAT 96
[2023-12-20 20:07] LABS: MANUAL DIFF FLAG NO
[2023-12-20 20:08] LABS: Basophils Percent Auto 0.3 % (0-2); Eosinophils Absolute Auto 0.9 X10*3/uL (0.0-0.4); Eosinophils Percent Auto 9.2 % (0-4); Hematocrit 40.6 % (42.0-52.0); Hemoglobin 12.9 g/dl (14.0-18.0); Imm Gran Abs Auto 0.03 X10*3/uL (0.00-0.03); Imm Gran Pct Auto 0.3 % (0.0-0.4); Lymphocytes Absolute Auto 3.3 X10*3/uL (1.2-4.9); Lymphocytes Percent Auto 33.3 % (20-40); Mean Corpuscular HGB Conc 31.8 g/dl (31.0-36.0); Mean Corpuscular Hemoglobin 28.2 pg (27.0-33.0); Mean Corpuscular Volume 88.6 fL (80.0-98.0); Mean Platelet Volume 9.3 fL (9.4-12.4); Monocytes Absolute Auto 1.3 X10*3/uL (0.1-1.2); Monocytes Percent Auto 13.2 % (2-11); Neutrophils Absolute Auto 4.3 x10*3/uL (2.0-8.3); Neutrophils Percent Auto 43.7 % (45-73); Platelet Count 194 X10*3/uL (160-400); Red Blood Count 4.58 X10*6/uL (4.60-5.80); Red Cell Distribution Width 14.7 % (11.0-16.0); White Blood Count 9.8 X10*3/uL (4.8-10.8)
[2023-12-20 20:18] LABS: Amphetamine Screen Urine Not Detected (Not Detect); Barbiturates, Urine Not Detected (Not Detect); Benzodiazepines Screen Urine Not Detected (Not Detect); Cannabinoid Screen Urine POSITIVE (Not Detect); Cocaine Screen Urine Not Detected (Not Detect); Fentanyl, urine Not Detected (Not Detect); Opiate Screen Urine Not Detected (Not Detect); Phencyclidine Screen Urine Not Detected (Not Detect)
[2023-12-20 20:23] LABS: Alanine Aminotransferase 30 U/L (0-40); Albumin Level 3.3 g/dL (3.5-5.0); Alkaline Phosphatase 93 U/L (39-117); Anion Gap 12 (12-20); Aspartate Amino Transferase 43 U/L (5-37); Bilirubin Total 0.2 mg/dL (0.0-1.0); Blood Urea Nitrogen 16 mg/dL (9-16); Calcium 9.2 mg/dL (8.4-10.2); Carbon Dioxide 27 mmol/L (22-29); Chloride 105 mmol/L (96-108); Creatinine Clr Calc Pharmacy 255.9; Estimated Glomerular Filt Rate > 60; Ethanol < 10 mg/dL; Glucose Random 99 mg/dL (60-115); Lipase 41 U/L (8-78); Potassium 4.3 mmol/L (3.3-5.1); Sodium 140 mmol/L (135-145); Total Protein 7.7 g/dL (6.5-8.0)
[2023-12-20 20:30] LABS: Troponin-I High Sensitivity < 2.7 ng/L (<3.5-35.0)
--- NOTE | 2023-12-20 20:38 | PHA.MEDREC ---
Pharmacy Consult ? Medication Reconciliation Pharmacy has completed the medication reconciliation. Patient came from [place] with medication records. Agustina Fisher, MagaliD
[2023-12-20 22:44] VITALS: BP 127/63; PULSE 84; RESP 16; TEMP 36.4; O2SAT 92
[2023-12-20 22:56] LABS: Troponin-I High Sensitivity < 2.7 ng/L (<3.5-35.0)
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
[2023-12-21 02:48] VITALS: BP 113/57; PULSE 88; RESP 18; TEMP 36.6; O2SAT 91
[2023-12-21 04:00] VITALS: BP 130/64; PULSE 78; RESP 18; O2SAT 93
[2023-12-21 06:00] VITALS: BP 133/63; PULSE 74; RESP 18; O2SAT 94
== END 2023-12-21 08:55 ==
PROVIDERS: Physician Assistant; Emergency Provider Internal Medicine
DX: R55 Syncope and collapse (principal); Q98 Other sex chromosome abnormalities, male phenotype, not elsewhere classified; R47.01 Aphasia; F63.81 Intermittent explosive disorder; F43.20 Adjustment disorder, unspecified; F14.10 Cocaine abuse, uncomplicated; Z79.899 Other long term (current) drug therapy
CPT/HCPCS: 36415; 70450; 71045; 72125; 80053; 80307; 83690; 84484; 85025; 93005; 99285

== ENCOUNTER → 2023-12-20 18:35 | Outpatient (BNV) | payer MEDICAID, SELFPAY | PROVIDERS: Emergency Provider Internal Medicine; Visit Provider Internal Medicine Cardiovascular Disease | DX: R55 Syncope and collapse (principal) | CPT/HCPCS: 93010 ==

== ENCOUNTER 2024-02-09 19:36 | Emergency (ER) | payer MEDICAID, SELFPAY ==
--- NOTE | 2024-02-09 19:47 | ED_ITS ---
HPI - General Adult General Chief complaint: Dental/Oral Stated complaint: ORAL ABSCESS, SEEN AT DENTIST YESTERDAY,GOT WORSE? Time Seen by Provider: 02/09/24 23:32 Source: patient and old records reviewed Mode of arrival: ambulatory Limitations: no limitations History of Present Illness HPI narrative: 23 yo male with hx of dental abscess, mental health issues here with c/o dental pain and infection for the last few days has been on amoxicillin for a couple of days no response did see dentist yesterday. no fevers, able to open mouth. MD complaint: toothache Onset (ago): day(s) (few) Location: mouth Radiation: non-radiation Severity: moderate Quality: aching Pain Consistency: constant Relieving factors: none Exacerbating factors: eating Associated symptoms: denies other symptoms Treatments prior to arrival: other (has been on antibiotics on the last few days amoxicillin) Related Data Home Medications Medication Instructions Recorded Confirmed guanfacine 4 mg tablet,extended 4 mg PO BEDTIME 06/27/23 12/20/23 release 24 hr propranolol 160 mg capsule,24 160 mg PO DAILY 06/27/23 12/20/23 hr,extended release quetiapine 400 mg tablet 400 mg PO BID 06/27/23 12/20/23 acetaminophen 325 mg tablet 650 mg PO Q6H PRN Mild Pain (Scale 12/20/23 12/20/23 Score 1-4) bisacodyl 5 mg tablet 10 mg PO DAILY PRN Constipation 12/20/23 12/20/23 chlorpromazine 100 mg tablet 100 mg PO TID 12/20/23 12/20/23 divalproex 250 mg tablet,delayed 250 mg PO BEDTIME 12/20/23 12/20/23 release divalproex 500 mg tablet,delayed 1,000 mg PO BEDTIME 12/20/23 12/20/23 release divalproex 500 mg tablet,delayed 1,000 mg PO DAILY 12/20/23 12/20/23 release gabapentin 400 mg capsule 400 mg PO TID 12/20/23 12/20/23 hydroxyzine HCl 50 mg tablet 50 mg PO Q6H PRN restlessness 12/20/23 12/20/23 lorazepam 1 mg tablet 1 mg PO TID PRN Agitation 12/20/23 12/20/23 lorazepam 1 mg tablet (Ativan) 1 mg PO TID 12/20/23 12/20/23 Previous Rx's Medication Instructions Recorded sennosides 8.6 mg tablet (senna) 8.6 mg PO BEDTIME 90 days #90 tabs 08/09/23 clindamycin HCl 150 mg capsule 450 mg (3 x 150 mg) PO Q8H 7 days 02/10/24 #63 caps Allergies Allergy/AdvReac Type Severity Reaction Status Date / Time methylphenidate Allergy Unknown UNKNOWN Verified 12/21/23 05:53 [From RITALIN] shrimp [SHRIMP] Allergy Unknown HIVES Verified 12/21/23 05:53 haloperidol [From Haldol] Allergy Involuntary Verified 12/21/23 05:53 Spasms lactose Allergy Diarrhea Verified 12/21/23 05:53 Review of Systems 2 Review of Systems: Constitutional : No Fever, No Chills ENT/Mouth : No swallowing difficulty, no change in voice, positive dental pain, positive jaw pain, no facial swelling Eyes: No Eye Pain, No Swelling Cardiovascular : No Chest Pain, No SOB Respiratory : No Cough, No Sputum Gastrointestinal : No Nausea, No Vomiting, No Diarrhea Genitourinary : No Dysuria Musculoskeletal : No Myalgias Skin : No rash Neuro : No Weakness, No Numbness, No Headache PMFSH Past Medical History Attestation statement: The following information was validated with the patient. Source: old records reviewed Medical History Intellectual developmental disorder, severe Dyspnea Adjustment disorder Seborrheic dermatitis Chronic abdominal pain Seizures XXYY syndrome Developmental disability Surgical History History of testicular surgery Family History Family History Father No problems noted. 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 Patient Tobacco Use Status: Never used Tobacco Tobacco use type: Cigarette Years Smoked: 16 years old e-Cigarette/Vaping Use: Never Used Second Hand Smoke Exposure: No Substance Use Type: Marijuana Advance Directives: No Advance Directives Information Provided: No service: No Current occupational status: disabled Cognitive needs: Yes Hearing needs: No Vision needs: No Physical Exam ED Vital Signs: Vital Signs - 24 hr 02/09/24 19:52 02/09/24 23:16 Temperature 97.6 F 98.0 F Pulse Rate 84 86 Respiratory Rate 20 22 H Blood Pressure 144/78 H 140/72 H Pulse Oximetry 95 95 Oxygen Delivery Method Room Air Room Air BMI result Body Mass Index 53.1 Appearance: Alert. Oriented X3. No acute distress. Eyes: Pupils equal, round and reactive to light. ENT: Pharynx no trismus has no sublingual or submandibular swelling normal ROM L lower molar 1-2 has gingival hyperemia and poor dentition but no fluctuant pocket noted Neck: Normal inspection. Neck supple. CVS: Normal heart rate and rhythm. Pulses normal. Respiratory: No respiratory distress. Breath sounds normal. Abdomen: Soft and nontender. Skin: Skin warm and dry. Normal skin color. Normal skin turgor. Extremities: No lower extremity edema. No calf ttp Neuro: Oriented X 3. No motor deficit. No sensory deficit. Course Course Course Narrative: This is an RME: Additional HPI, ROS, PE not included below will be deferred to primary provider. 23-year-old male presenting with concerns of dental abscess, was seen by dentist yesterday placed on antibiotics, appears to be getting worse per patient left-sided swelling to lip, cheek, patient reports he has been taking his antibiotics as prescribed. Patient recently had a root canal and multiple dental procedures. Denies fevers and chills. Denies changes in voice or trouble controlling secretions. Plan basic labs Medical Decision Making Medical Decision Making MDM Narrative: 23 yo male who was just on amoxicillin here with c/o worsening infection but clinically there is no sublingual or submandibular swelling and he has no trismus and normal ROM of the neck there is no pocket to I+D in the mouth he needs to see the dentist in the AM will switch to clindamycin and DC home. Differential Diagnosis Differential Diagnoses: The differential diagnosis associated with the presentation includes dental abscess, gingivitis Lab Data 02/09/24 20:54 02/09/24 20:54 Labs: Lab Results 02/09/24 Range/Units 20:54 WBC 8.4 (4.8-10.8) X10*3/uL RBC 4.50 L (4.60-5.80) X10*6/uL Hgb 12.6 L (14.0-18.0) g/dl Hct 40.1 L (42.0-52.0) % MCV 89.1 (80.0-98.0) fL MCH 28.0 (27.0-33.0) pg MCHC 31.4 (31.0-36.0) g/dl RDW 13.8 (11.0-16.0) % Plt Count 178 (160-400) X10*3/uL MPV 9.7 (9.4-12.4) fL Immature Gran % (Auto) 0.4 (0.0-0.4) % Neut % (Auto) 44.3 L (45-73) % Lymph % (Auto) 30.4 (20-40) % Dickinson % (Auto) 11.9 H (2-11) % Eos % (Auto) 12.5 H (0-4) % Baso % (Auto) 0.5 (0-2) % Lymph # (Auto) 2.5 (1.2-4.9) X10*3/uL Dickinson # (Auto) 1.0 (0.1-1.2) X10*3/uL Eos # (Auto) 1.0 H (0.0-0.4) X10*3/uL Baso # (Auto) 0.0 (0.0-0.2) X10*3/uL Abs Immat Gran (auto) 0.03 (0.00-0.03) X10*3/uL Absolute Neuts (auto) 3.7 (2.0-8.3) x10*3/uL Absolute Nucleated RBC 0.000 (0.0-0.012) X10*3/uL Nucleated RBC % (auto) 0.0 (0.0-0.2) /100WBC Sodium 140 (135-145) mmol/L Potassium 4.4 (3.3-5.1) mmol/L Chloride 106 (96-108) mmol/L Carbon Dioxide 27 (22-29) mmol/L Anion Gap 11 L (12-20) BUN 9 (9-16) mg/dL Creatinine 0.96 (0.5-1.4) mg/dL Estim Creat Clear Calc 224.1 Estimated GFR > 60 Random Glucose 148 H (60-115) mg/dL Calcium 9.4 (8.4-10.2) mg/dL Total Bilirubin 0.2 (0.0-1.0) mg/dL AST 16 (5-37) U/L ALT 20 (0-40) U/L Alkaline Phosphatase 110 (39-117) U/L Total Protein 7.8 (6.5-8.0) g/dL Albumin 3.4 L (3.5-5.0) g/dL External Record Review External record reviewed: Inpatient record Prescription Management I considered prescription management with: Antibiotic Discharge Plan Discharge Clinical Impression: Abscess, dental Patient Disposition: Home, Self-Care Instructions: Dental Abscess (ED) Additional Instructions: stop the amoxicillin call the dentist in the AM return for increased facial or neck swelling start new antibiotic given dose in ED can start next dose in AM Prescriptions: New clindamycin HCl 150 mg capsule 450 mg PO Q8H 7 Days Qty: 63 0RF No Action sennosides [senna] 8.6 mg tablet 8.6 mg PO BEDTIME 90 Days Qty: 90 1RF propranolol 160 mg capsule,extended release 24 hr 160 mg PO DAILY quetiapine 400 mg tablet 400 mg PO BID guanfacine 4 mg tablet extended release 24 hr 4 mg PO BEDTIME acetaminophen 325 mg Tablet 650 mg PO Q6H PRN (Reason: Mild Pain (Scale Score 1-4)) divalproex 250 mg Tablet,Delayed Release (Dr/Ec) 250 mg PO BEDTIME Rx Instructions: total bedtime dose = 1250 mg chlorpromazine [Thorazine] 100 mg Tablet 100 mg PO TID Rx Instructions: HOLD IF OVERLY SEDATED gabapentin 400 mg Capsule 400 mg PO TID hydroxyzine HCl 50 mg Tablet 50 mg PO Q6H PRN (Reason: restlessness) divalproex 500 mg Tablet,Delayed Release (Dr/Ec) 1,000 mg PO DAILY divalproex 500 mg tablet,delayed release (DR/EC) 1,000 mg PO BEDTIME Rx Instructions: total bedtime dose = 1250 mg lorazepam [Ativan] 1 mg Tablet 1 mg PO TID Rx Instructions: hold if overly sedated lorazepam 1 mg Tablet 1 mg PO TID PRN (Reason: Agitation) bisacodyl 5 mg Tablet 10 mg PO DAILY PRN (Reason: Constipation)
[2024-02-09 19:52] VITALS: BP 144/78; BP 156/78; PULSE 84; RESP 20; TEMP 36.4; O2SAT 95; O2SAT 98; BMI 53.1
[2024-02-09 20:59] LABS: MANUAL DIFF FLAG NO
[2024-02-09 21:00] LABS: Basophils Percent Auto 0.5 % (0-2); Eosinophils Percent Auto 12.5 % (0-4); Hematocrit 40.1 % (42.0-52.0); Hemoglobin 12.6 g/dl (14.0-18.0); Imm Gran Abs Auto 0.03 X10*3/uL (0.00-0.03); Imm Gran Pct Auto 0.4 % (0.0-0.4); Lymphocytes Absolute Auto 2.5 X10*3/uL (1.2-4.9); Lymphocytes Percent Auto 30.4 % (20-40); Mean Corpuscular HGB Conc 31.4 g/dl (31.0-36.0); Mean Corpuscular Volume 89.1 fL (80.0-98.0); Mean Platelet Volume 9.7 fL (9.4-12.4); Monocytes Percent Auto 11.9 % (2-11); Neutrophils Absolute Auto 3.7 x10*3/uL (2.0-8.3); Neutrophils Percent Auto 44.3 % (45-73); Platelet Count 178 X10*3/uL (160-400); Red Cell Distribution Width 13.8 % (11.0-16.0); White Blood Count 8.4 X10*3/uL (4.8-10.8)
[2024-02-09 21:13] LABS: Alanine Aminotransferase 20 U/L (0-40); Albumin Level 3.4 g/dL (3.5-5.0); Alkaline Phosphatase 110 U/L (39-117); Anion Gap 11 (12-20); Aspartate Amino Transferase 16 U/L (5-37); Bilirubin Total 0.2 mg/dL (0.0-1.0); Blood Urea Nitrogen 9 mg/dL (9-16); Calcium 9.4 mg/dL (8.4-10.2); Carbon Dioxide 27 mmol/L (22-29); Chloride 106 mmol/L (96-108); Creatinine Clr Calc Pharmacy 224.1; Estimated Glomerular Filt Rate > 60; Glucose Random 148 mg/dL (60-115); Potassium 4.4 mmol/L (3.3-5.1); Sodium 140 mmol/L (135-145); Total Protein 7.8 g/dL (6.5-8.0)
[2024-02-09 23:16] VITALS: BP 140/72; PULSE 86; RESP 22; TEMP 36.7; O2SAT 95
--- NOTE | 2024-02-10 00:15 | PC.NURSE ---
pt is resting comfortably on stretcher in no apparent distress. spoke with senior living members, they are arranging transport for patient to go back to facility.
--- NOTE | 2024-02-10 01:30 | PC.NURSE ---
MD Hoffmann aware that clindamycin not available in ED.
[2024-02-10 01:56] VITALS: RESP 16
[2024-02-10 01:58] VITALS: BP 140/72; PULSE 86; RESP 16; TEMP 36.6
== END 2024-02-10 02:36 | disposition home or self-care (01) ==
PROVIDERS: Physician Assistant; Emergency Provider Emergency Medicine
DX: K05.20 Aggressive periodontitis, unspecified (principal); Z79.899 Other long term (current) drug therapy
CPT/HCPCS: 36415; 80053; 85025; 99283; 99284